=== PATIENT | male | born 1970 | race Caucasian/White ===

== ENCOUNTER 2016-05-16 14:42 | Inpatient (IN) ==
[2016-05-16] MEDS ORDERED: 0.9 % Sodium Chloride 1,000 ML IVC ONE ×2 (17:13→20:04)
[2016-05-16] MEDS ORDERED: *HR* HYDROmorphone (PF) 1 MG/ML SYRINGE IVP ONE (17:14)
[2016-05-16] MEDS ORDERED: Ondansetron 4 MG/2 ML VIAL IVP ONE (17:14)
--- NOTE | 2016-05-16 17:28 | Emergency Department Note ---
Disposition Clinical Impression: Vomiting Qualifiers: Vomiting type: unspecified Vomiting Intractability: non-intractable Nausea presence: unspecified Qualified Code(s): R11.10 - Vomiting, unspecified Abdominal pain Qualifiers: Abdominal location: generalized Qualified Code(s): R10.84 - Generalized abdominal pain Disposition: Still a Patient Condition: Good Referrals: Evgeny Griffith MD [Primary Care Provider] - Forms: ED Satisfaction Letter Time of Disposition: 19:02 General Adult HPI - General Chief complaint: ED Nausea/Vomiting/Diarrhea Stated complaint: vomiting Time Seen by Provider: 05/16/16 16:47 Source: patient, family Limitations: other (prader-willi syndrome) Nursing Notes Reviewed: Yes Vital Signs Reviewed: Yes - History of Present Illness HPI Narrative: Patient is a 46-year-old male who presents to [facility] ED with a chief complaint of abdominal pain, vomiting. Patient has a past medical history significant for Prader-Willi syndrome. His sister is his POA. His sister states that 2 nights ago, she found him with a large bottle of hot sauce mixed in with some water and he had spilled all over the floor as well as on the bed. She is unsure of how much she ingested. Patient then had a few episodes of vomiting yesterday as well as today. He has been complaining of abdominal pain which his sister states he never complains of any pain. He has had prior symptoms that were similar when he had pancreatitis secondary to cholecystitis. His gallbladder was removed at that time. He is not on any specific medications for Prader-Willi syndrome. Denies any history of adrenal insufficiency. They state he has had problems with anemia for which she has required blood transfusions at the cancer center. He also has multiple open sores on his lower extremities from his picking for which he sees wound care. Onset (ago): day(s) Location: abdomen Radiation: non-radiation Pain Severity: moderate Pain Scale: 5 Consistency: constant Improves with: nothing Worsens with: other (palpation) Associated symptoms: Reports: nausea/vomiting. Denies: confusion, fever/chills , shortness of breath Treatments Prior to Arrival: none - Related Data Home Medications Medication Instructions Recorded Confirmed Multivitamin [Multi-Day Vitamins] 1 each PO DAILY 01/07/16 05/09/16 Pentoxifylline [TRENtal] 400 mg PO BID 01/07/16 05/09/16 Furosemide [Lasix] 20 mg PO DAILY 02/02/16 05/09/16 Previous Rx's Medication Instructions Recorded Ascorbic Acid [Vitamin C] 500 mg PO DAILY #30 tablet 01/09/16 Folic Acid 0.4 mg PO DAILY #30 tablet 01/09/16 Ferrous Gluconate 324 mg PO BID #60 tablet 02/15/16 Allergies Allergy/AdvReac Type Severity Reaction Status Date / Time cephalexin [From Keflex] Allergy See Verified 03/14/16 16:16 Comments chlorpromazine Allergy See Verified 03/14/16 16:16 [From Thorazine] Comments All systems ED: reviewed and negative except as stated. Past Medical History - Past Medical History Attestation: Yes The following information was validated with the patient. Source: obtained from family Medical history: Reports: other Surgical history: Reports: cholecystectomy Psychiatric history: Reports: other - Social History Smoking Status: Never smoker Smokeless Tobacco Status: No Alcohol use: Reports: none Drug use: Reports: none Physical Exam - General Limitations: no limitations General appearance: alert, obese - Head Head exam: atraumatic, normocephalic, normal inspection - Eye Eye exam: Present: normal appearance, PERRL, EOMI - ENT ENT exam: normal exam - Neck Neck exam: Present: normal inspection, full ROM, trachea midline - Chest Chest inspection: Present: normal inspection, symmetric chest wall rise - Respiratory Respiratory exam: Present: normal lung sounds bilaterally - Cardiovascular Cardiovascular exam: Present: normal rhythm, tachycardia - Abdominal Exam Abdominal exam: Present: soft, tenderness, diminished bowel sounds. Absent: distention, guarding, rebound, rigidity - Extremities Exam Extremities exam: Present: other (Lower extremity sores bandaged) - Neurological Exam Neurological exam: Present: alert - Psychiatric Psychiatric exam: Present: normal affect, normal mood - Skin Skin exam: Present: warm, dry, intact, normal color Course Course Narrative: Patient seen and examined. Patient has abdominal pain and vomiting. History of anemia. He does appear pale. He is complaining of abdominal pain when I push on his abdomen though it does feel soft and nondistended. Labs, CT scan with IV contrast ordered. He has also somewhat hypotensive with his blood pressure 80s over 60s. 1L IVF ordered. - Reevaluation(s) Reevaluation #1: Lab work shows mild leukocytosis of 14 which is elevated from what it was one week ago at 7. He also has a mild lactic acidosis at 2.5. His blood pressure is improving with some fluids. Pending abdominal CT scan. Suspect patient will likely need admission. Patient has been signed out to night team. Time: 19:01 Vital Signs Temperature 99.1 F 05/16/16 14:58 Pulse Rate 100 05/16/16 14:58 Respiratory Rate 16 05/16/16 14:58 Blood Pressure 84/61 05/16/16 14:58 O2 Sat by Pulse Oximetry 95 05/16/16 14:58 Temperature 99.1 F 05/16/16 14:58 Pulse Rate 97 05/16/16 18:11 Respiratory Rate 16 05/16/16 18:11 Blood Pressure 92/58 05/16/16 18:11 O2 Sat by Pulse Oximetry 87 L 05/16/16 18:11 Oxygen Delivery Oxygen Delivery Room Air Medical Decision Making - Medical Records Medical records reviewed: Yes I reviewed the patient's medical records. - Lab Data Lab results reviewed: Yes I reviewed the patient's lab results. Result diagrams: 05/16/16 17:21 05/16/16 17:21 Lab Results 05/16/16 05/16/16 05/16/16 Range/Units 17:21 17:21 18:01 WBC 14.2 H (4.3-11.1) K/mcL RBC 3.17 L (4.19-5.50) M/mcL Hgb 7.2 L (12.9-16.9) g/dL Hct 25.6 L (37.5-50.1) % MCV 80.8 L (83.0-100.0) fL MCH 22.7 L (28.0-33.3) pg MCHC 28.1 L (31.6-35.5) g/dL RDW 16.4 H (11.5-14.5) % Plt Count 423 H (140-400) K/mcL MPV 10.0 (9.4-12.4) fL Immature Gran % 0.6 (0-4) % Seg Neutrophils % 55.9 % Lymphocytes % 24.4 % Monocytes % 18.0 % Eosinophils % 0.6 % Basophils % 0.5 % Neutrophils # 7.9 (1.6-8.9) K/mcL Lymphocytes # 3.5 (0.6-4.6) K/mcL Monocytes # 2.6 H (0.0-1.3) K/mcL Eosinophils # 0.1 (0.0-0.6) K/mcL Basophils # 0.1 (0.0-0.2) K/mcL Nucleated RBCs/100 WBC 0.4 H (0) /100 WBC Platelet Estimate Slight increase H (Normal) Polychromasia 1+ A (Not Present) Hypochromasia Present A (Not Present) Anisocytosis 1+ A (Not Present) Sodium 138 (136-145) mEq/L Potassium 3.5 (3.5-4.5) mEq/L Chloride 103 (98-109) mEq/L Carbon Dioxide 24 (19-29) mEq/L BUN 13 (8-26) mg/dL Creatinine 0.68 L (0.72-1.25) mg/dL Est GFR ( Amer) > 60 (> 60) Est GFR (Non-Af Amer) > 60 (> 60) BUN/Creatinine Ratio 19 (6-26) Glucose 86 (70-99) mg/dL Calculated Osmolality 285 (280-300) Lactic Acid 2.5 H (0.5-2.2) mmol/L Calcium 7.7 L (8.6-10.8) mg/dL Total Bilirubin 0.4 (0.2-1.2) mg/dL Direct Bilirubin 0.2 (0.0-0.5) mg/dL Indirect Bilirubin 0.2 (0.0-1.2) mg/dL AST 17 (5-34) Units/L ALT 6 (0-55) Units/L Alkaline Phosphatase 82 (38-126) Units/L Serum Total Protein 5.4 L (6.0-8.3) g/dL Albumin 1.8 L (3.5-5.0) g/dL Globulin 3.6 H (2.4-3.5) g/dL Albumin/Globulin Ratio 0.5 L (1.1-2.2) Amylase 26 (25-125) Units/L Lipase 9 (8-78) Units/L - Radiology Data Radiology results reviewed: Yes I reviewed the patient's radiology results.
[2016-05-16 17:32] LABS: Eosinophils % 0.6 %; Lymphocytes % 24.4 %; Nucleated Red Blood Cells 0.4 /100 WBC (0); Red Cell Distribution Width 16.4 % (11.5-14.5)
[2016-05-16 17:33] LABS: Basophils # 0.1 K/mcL (0.0-0.2); Basophils % 0.5 %; Eosinophils # 0.1 K/mcL (0.0-0.6); Hematocrit 25.6 % (37.5-50.1); Hemoglobin 7.2 g/dL (12.9-16.9); Immature Granulocytes % 0.6 % (0-4); Lymphocytes # 3.5 K/mcL (0.6-4.6); Mean Corpuscular HGB Conc 28.1 g/dL (31.6-35.5); Mean Corpuscular Hemoglobin 22.7 pg (28.0-33.3); Mean Corpuscular Volume 80.8 fL (83.0-100.0); Monocytes # 2.6 K/mcL (0.0-1.3); Neutrophils # 7.9 K/mcL (1.6-8.9); Platelet Count 423 K/mcL (140-400); Red Blood Count 3.17 M/mcL (4.19-5.50); Segmented Neutrophils % 55.9 %
[2016-05-16 17:48] LABS: Alanine Aminotransferase 6 Units/L (0-55); Albumin/Globulin Ratio 0.5 (1.1-2.2); Alkaline Phosphatase 82 Units/L (38-126); Amylase 26 Units/L (25-125); Aspartate Amino Transferase 17 Units/L (5-34); BUN/Creatinine Ratio 19 (6-26); Bilirubin,Direct 0.2 mg/dL (0.0-0.5); Bilirubin,Indirect 0.2 mg/dL (0.0-1.2); Bilirubin,Total 0.4 mg/dL (0.2-1.2); Blood Urea Nitrogen 13 mg/dL (8-26); Calcium 7.7 mg/dL (8.6-10.8); Carbon Dioxide 24 mEq/L (19-29); Chloride 103 mEq/L (98-109); Globulin 3.6 g/dL (2.4-3.5); Glucose 86 mg/dL (70-99); Lipase 9 Units/L (8-78); Osmolality,Calculated 285 (280-300); Potassium 3.5 mEq/L (3.5-4.5); Sodium 138 mEq/L (136-145); Total Protein 5.4 g/dL (6.0-8.3); eGFR For African Americans > 60 (> 60); eGFR For Non-African Americans > 60 (> 60)
[2016-05-16 17:49] LABS: Albumin 1.8 g/dL (3.5-5.0)
[2016-05-16 17:56] LABS: Anisocytosis 1+ (Not Present); Hypochromasia Present (Not Present); Polychromasia 1+ (Not Present)
--- NOTE | 2016-05-16 18:18 | Emergency Department Note ---
Disposition Clinical Impression: Vomiting, Abdominal pain, Pneumonia of both lower lobes, Severe sepsis Disposition: Admitted As Inpatient Condition: Fair General Adult HPI - General Chief complaint: ED Nausea/Vomiting/Diarrhea Stated complaint: vomiting Time Seen by Provider: 05/16/16 16:47 Source: patient, family Limitations: no limitations - History of Present Illness Location: abdomen Pain Scale: 5 Improves with: nothing Worsens with: other (palpation) Associated symptoms: Reports: nausea/vomiting. Denies: confusion, fever/chills , shortness of breath Treatments Prior to Arrival: none - Related Data Home Medications Medication Instructions Recorded Confirmed Multivitamin [Multi-Day Vitamins] 1 each PO DAILY 01/07/16 05/16/16 Pentoxifylline [TRENtal] 400 mg PO BID 01/07/16 05/16/16 Furosemide [Lasix] 20 mg PO DAILY 02/02/16 05/16/16 Previous Rx's Medication Instructions Recorded Ascorbic Acid [Vitamin C] 500 mg PO DAILY #30 tablet 01/09/16 Folic Acid 0.4 mg PO DAILY #30 tablet 01/09/16 Ferrous Gluconate 324 mg PO BID #60 tablet 02/15/16 Allergies Allergy/AdvReac Type Severity Reaction Status Date / Time cephalexin [From Keflex] Allergy See Verified 03/14/16 16:16 Comments chlorpromazine Allergy See Verified 03/14/16 16:16 [From Thorazine] Comments Past Medical History - Past Medical History Medical history: Reports: other Surgical history: Reports: cholecystectomy Psychiatric history: Reports: other - Social History Smoking Status: Never smoker Smokeless Tobacco Status: No Alcohol use: Reports: none Drug use: Reports: none Physical Exam - General Limitations: no limitations General appearance: alert, obese Course - Reevaluation(s) Reevaluation #1: I saw the patient with the resident, Dr. Reyna. Patient presents with abdominal pain. Patient vomited yesterday. He has had decreased by mouth intake. On examination he complains of tenderness all over the belly but when I went to see him he had had a big bowel movement and says his discomfort is better since the bowel movement. Labs look okay. He is anemic but he is at baseline. Blood pressure was little bit low so we given him IV fluids. He is going for CT scan of the abdomen. Disposition will be based on diagnostic results and reevaluation. Time: 18:16 Vital Signs Temperature 99.1 F 05/16/16 14:58 Pulse Rate 100 05/16/16 14:58 Respiratory Rate 16 05/16/16 14:58 Blood Pressure 84/61 05/16/16 14:58 O2 Sat by Pulse Oximetry 95 05/16/16 14:58 Temperature 97.5 F L 05/18/16 15:49 Pulse Rate 70 05/18/16 16:00 Respiratory Rate 18 05/18/16 12:50 Blood Pressure 141/67 05/18/16 08:00 O2 Sat by Pulse Oximetry 98 05/18/16 12:50 Oxygen Delivery Oxygen Delivery Room Air Medical Decision Making - Lab Data Result diagrams: 05/18/16 05:10 05/18/16 05:10 Lab Results 05/16/16 05/16/16 05/16/16 Range/Units 17:21 17:21 18:01 WBC 14.2 H (4.3-11.1) K/mcL RBC 3.17 L (4.19-5.50) M/mcL Hgb 7.2 L (12.9-16.9) g/dL Hct 25.6 L (37.5-50.1) % MCV 80.8 L (83.0-100.0) fL MCH 22.7 L (28.0-33.3) pg MCHC 28.1 L (31.6-35.5) g/dL RDW 16.4 H (11.5-14.5) % Plt Count 423 H (140-400) K/mcL MPV 10.0 (9.4-12.4) fL Immature Gran % 0.6 (0-4) % Seg Neutrophils % 55.9 % Lymphocytes % 24.4 % Monocytes % 18.0 % Eosinophils % 0.6 % Basophils % 0.5 % Neutrophils # 7.9 (1.6-8.9) K/mcL Lymphocytes # 3.5 (0.6-4.6) K/mcL Monocytes # 2.6 H (0.0-1.3) K/mcL Eosinophils # 0.1 (0.0-0.6) K/mcL Basophils # 0.1 (0.0-0.2) K/mcL Nucleated RBCs/100 WBC 0.4 H (0) /100 WBC Platelet Estimate Slight increase H (Normal) Polychromasia 1+ A (Not Present) Hypochromasia Present A (Not Present) Anisocytosis 1+ A (Not Present) Sodium 138 (136-145) mEq/L Potassium 3.5 (3.5-4.5) mEq/L Chloride 103 (98-109) mEq/L Carbon Dioxide 24 (19-29) mEq/L BUN 13 (8-26) mg/dL Creatinine 0.68 L (0.72-1.25) mg/dL Est GFR ( Amer) > 60 (> 60) Est GFR (Non-Af Amer) > 60 (> 60) BUN/Creatinine Ratio 19 (6-26) Glucose 86 (70-99) mg/dL Calculated Osmolality 285 (280-300) Lactic Acid 2.5 H (0.5-2.2) mmol/L Calcium 7.7 L (8.6-10.8) mg/dL Total Bilirubin 0.4 (0.2-1.2) mg/dL Direct Bilirubin 0.2 (0.0-0.5) mg/dL Indirect Bilirubin 0.2 (0.0-1.2) mg/dL AST 17 (5-34) Units/L ALT 6 (0-55) Units/L Alkaline Phosphatase 82 (38-126) Units/L Serum Total Protein 5.4 L (6.0-8.3) g/dL Albumin 1.8 L (3.5-5.0) g/dL Globulin 3.6 H (2.4-3.5) g/dL Albumin/Globulin Ratio 0.5 L (1.1-2.2) Amylase 26 (25-125) Units/L Lipase 9 (8-78) Units/L Urine Color (Yellow) Urine Clarity (Clear) Urine pH (5.0-8.0) pH Units Ur Specific [place] (1.010-1.025) Urine Protein (Neg-Trace) mg/dL Urine Glucose (UA) (Normal) mg/dL Urine Ketones (Negative) mg/dL Urine Blood (Negative) Urine Nitrite (Negative) Urine Bilirubin (Negative) Urine Urobilinogen (Normal) mg/dL Ur Leukocyte Esterase (Negative) Urine Microscopic RBC (0-3) per hpf Urine Microscopic WBC (0-3) per hpf Ur Squamous Epith Cells (None-Few) per lpf Urine Bacteria (None-Few) per hpf Hyaline Casts (None-Few) per lpf Ur Culture Indicated? (NO) 05/16/16 05/16/16 Range/Units 20:49 22:04 WBC (4.3-11.1) K/mcL RBC (4.19-5.50) M/mcL Hgb (12.9-16.9) g/dL Hct (37.5-50.1) % MCV (83.0-100.0) fL MCH (28.0-33.3) pg MCHC (31.6-35.5) g/dL RDW (11.5-14.5) % Plt Count (140-400) K/mcL MPV (9.4-12.4) fL Immature Gran % (0-4) % Seg Neutrophils % % Lymphocytes % % Monocytes % % Eosinophils % % Basophils % % Neutrophils # (1.6-8.9) K/mcL Lymphocytes # (0.6-4.6) K/mcL Monocytes # (0.0-1.3) K/mcL Eosinophils # (0.0-0.6) K/mcL Basophils # (0.0-0.2) K/mcL Nucleated RBCs/100 WBC (0) /100 WBC Platelet Estimate (Normal) Polychromasia (Not Present) Hypochromasia (Not Present) Anisocytosis (Not Present) Sodium (136-145) mEq/L Potassium (3.5-4.5) mEq/L Chloride (98-109) mEq/L Carbon Dioxide (19-29) mEq/L BUN (8-26) mg/dL Creatinine (0.72-1.25) mg/dL Est GFR ( Amer) (> 60) Est GFR (Non-Af Amer) (> 60) BUN/Creatinine Ratio (6-26) Glucose (70-99) mg/dL Calculated Osmolality (280-300) Lactic Acid 3.4 H (0.5-2.2) mmol/L Calcium (8.6-10.8) mg/dL Total Bilirubin (0.2-1.2) mg/dL Direct Bilirubin (0.0-0.5) mg/dL Indirect Bilirubin (0.0-1.2) mg/dL AST (5-34) Units/L ALT (0-55) Units/L Alkaline Phosphatase (38-126) Units/L Serum Total Protein (6.0-8.3) g/dL Albumin (3.5-5.0) g/dL Globulin (2.4-3.5) g/dL Albumin/Globulin Ratio (1.1-2.2) Amylase (25-125) Units/L Lipase (8-78) Units/L Urine Color Yellow (Yellow) Urine Clarity Clear (Clear) Urine pH 6.0 (5.0-8.0) pH Units Ur Specific [place] > 1.030 H (1.010-1.025) Urine Protein 30 H (Neg-Trace) mg/dL Urine Glucose (UA) Normal (Normal) mg/dL Urine Ketones Negative (Negative) mg/dL Urine Blood Small H (Negative) Urine Nitrite Negative (Negative) Urine Bilirubin Negative (Negative) Urine Urobilinogen Normal (Normal) mg/dL Ur Leukocyte Esterase Negative (Negative) Urine Microscopic RBC 3-5 H (0-3) per hpf Urine Microscopic WBC 0-3 (0-3) per hpf Ur Squamous Epith Cells Many H (None-Few) per lpf Urine Bacteria None Seen (None-Few) per hpf Hyaline Casts Few (None-Few) per lpf Ur Culture Indicated? NO (NO) Attestation Statement - Attestation Attestation: I, Dr. Waite, examined this patient [id number] and my medical decision- making was reviewed with Dr. Reyna, Resident Physician. I agree with the documented findings, disposition and treatment plan as described except to the extent set forth below. Please see my progress notes for details.
[2016-05-16] MEDS ORDERED: 0.9 % Sodium Chloride 1,000 ML ONE (20:04)
[2016-05-16] MEDS ORDERED: 0.9 % Sodium Chloride 500 ML IVC ONE (20:43)
[2016-05-16] MEDS ORDERED: Levofloxacin 750 MG/150 ML 750 MG/150 ML BAG IVPB ONE (20:45)
[2016-05-16] MEDS ORDERED: 0.9 % Sodium Chloride 1,000 ML IVC SCH ×2 (20:45→23:56)
--- NOTE | 2016-05-16 20:49 | Emergency Department Note ---
Disposition Clinical Impression: Severe sepsis Vomiting Qualifiers: Vomiting type: unspecified Vomiting Intractability: non-intractable Nausea presence: unspecified Qualified Code(s): R11.10 - Vomiting, unspecified Abdominal pain Qualifiers: Abdominal location: generalized Qualified Code(s): R10.84 - Generalized abdominal pain Pneumonia of both lower lobes Qualifiers: Pneumonia type: due to unspecified organism Qualified Code(s): J18.9 - Pneumonia, unspecified organism Disposition: Admitted As Inpatient Condition: Fair General Adult HPI - General Chief complaint: ED Nausea/Vomiting/Diarrhea Stated complaint: vomiting Time Seen by Provider: 05/16/16 16:47 Source: patient, family Limitations: no limitations Nursing Notes Reviewed: Yes Vital Signs Reviewed: Yes - History of Present Illness Location: abdomen Pain Scale: 5 Improves with: nothing Worsens with: other (palpation) Associated symptoms: Reports: nausea/vomiting. Denies: confusion, fever/chills , shortness of breath Treatments Prior to Arrival: none - Related Data Home Medications Medication Instructions Recorded Confirmed Multivitamin [Multi-Day Vitamins] 1 each PO DAILY 01/07/16 05/16/16 Pentoxifylline [TRENtal] 400 mg PO BID 01/07/16 05/16/16 Furosemide [Lasix] 20 mg PO DAILY 02/02/16 05/16/16 Previous Rx's Medication Instructions Recorded Ascorbic Acid [Vitamin C] 500 mg PO DAILY #30 tablet 01/09/16 Folic Acid 0.4 mg PO DAILY #30 tablet 01/09/16 Ferrous Gluconate 324 mg PO BID #60 tablet 02/15/16 Allergies Allergy/AdvReac Type Severity Reaction Status Date / Time cephalexin [From Keflex] Allergy See Verified 03/14/16 16:16 Comments chlorpromazine Allergy See Verified 03/14/16 16:16 [From Thorazine] Comments Past Medical History - Past Medical History Medical history: Reports: other Surgical history: Reports: cholecystectomy Psychiatric history: Reports: other - Social History Smoking Status: Never smoker Smokeless Tobacco Status: No Alcohol use: Reports: none Drug use: Reports: none Physical Exam - General Limitations: no limitations General appearance: alert, obese Course Course Narrative: This patient was signed out to me at shift change from Dr. Reyna and Dr. Waite. Please refer to their notes for complete details of history and physical examination. At shift change patient was awaiting results of a CT scan of the abdomen and pelvis. CT showed some diffuse abdominal lymphadenopathy concerning for neoplasm but otherwise no acute intra-abdominal abnormality. It also showed right basilar opacities concerning for pneumonia. Results discussed with patient and family. Blood cultures obtained and antibiotics ordered. We will admit the patient for pneumonia. - Consultations Consultation #1: 21:00 discussed with the hospitalist, Dr. Angeles, and he accepted admission of the patient. Time: 20:48 Vital Signs Temperature 99.1 F 05/16/16 14:58 Pulse Rate 100 05/16/16 14:58 Respiratory Rate 16 05/16/16 14:58 Blood Pressure 84/61 05/16/16 14:58 O2 Sat by Pulse Oximetry 95 05/16/16 14:58 Temperature 99.1 F 05/16/16 14:58 Pulse Rate 102 05/16/16 21:03 Respiratory Rate 18 05/16/16 21:03 Blood Pressure 88/61 05/16/16 21:03 O2 Sat by Pulse Oximetry 94 L 05/16/16 21:03 Oxygen Delivery Oxygen Delivery Room Air Medical Decision Making - Medical Records Medical records reviewed: Yes I reviewed the patient's medical records. - Lab Data Lab results reviewed: Yes I reviewed the patient's lab results. Result diagrams: 05/16/16 17:21 05/16/16 17:21 Lab Results 05/16/16 05/16/16 05/16/16 Range/Units 17:21 17:21 18:01 WBC 14.2 H (4.3-11.1) K/mcL RBC 3.17 L (4.19-5.50) M/mcL Hgb 7.2 L (12.9-16.9) g/dL Hct 25.6 L (37.5-50.1) % MCV 80.8 L (83.0-100.0) fL MCH 22.7 L (28.0-33.3) pg MCHC 28.1 L (31.6-35.5) g/dL RDW 16.4 H (11.5-14.5) % Plt Count 423 H (140-400) K/mcL MPV 10.0 (9.4-12.4) fL Immature Gran % 0.6 (0-4) % Seg Neutrophils % 55.9 % Lymphocytes % 24.4 % Monocytes % 18.0 % Eosinophils % 0.6 % Basophils % 0.5 % Neutrophils # 7.9 (1.6-8.9) K/mcL Lymphocytes # 3.5 (0.6-4.6) K/mcL Monocytes # 2.6 H (0.0-1.3) K/mcL Eosinophils # 0.1 (0.0-0.6) K/mcL Basophils # 0.1 (0.0-0.2) K/mcL Nucleated RBCs/100 WBC 0.4 H (0) /100 WBC Platelet Estimate Slight increase H (Normal) Polychromasia 1+ A (Not Present) Hypochromasia Present A (Not Present) Anisocytosis 1+ A (Not Present) Sodium 138 (136-145) mEq/L Potassium 3.5 (3.5-4.5) mEq/L Chloride 103 (98-109) mEq/L Carbon Dioxide 24 (19-29) mEq/L BUN 13 (8-26) mg/dL Creatinine 0.68 L (0.72-1.25) mg/dL Est GFR ( Amer) > 60 (> 60) Est GFR (Non-Af Amer) > 60 (> 60) BUN/Creatinine Ratio 19 (6-26) Glucose 86 (70-99) mg/dL Calculated Osmolality 285 (280-300) Lactic Acid 2.5 H (0.5-2.2) mmol/L Calcium 7.7 L (8.6-10.8) mg/dL Total Bilirubin 0.4 (0.2-1.2) mg/dL Direct Bilirubin 0.2 (0.0-0.5) mg/dL Indirect Bilirubin 0.2 (0.0-1.2) mg/dL AST 17 (5-34) Units/L ALT 6 (0-55) Units/L Alkaline Phosphatase 82 (38-126) Units/L Serum Total Protein 5.4 L (6.0-8.3) g/dL Albumin 1.8 L (3.5-5.0) g/dL Globulin 3.6 H (2.4-3.5) g/dL Albumin/Globulin Ratio 0.5 L (1.1-2.2) Amylase 26 (25-125) Units/L Lipase 9 (8-78) Units/L 02/14/17 Range/Units 20:49 WBC (4.3-11.1) K/mcL RBC (4.19-5.50) M/mcL Hgb (12.9-16.9) g/dL Hct (37.5-50.1) % MCV (83.0-100.0) fL MCH (28.0-33.3) pg MCHC (31.6-35.5) g/dL RDW (11.5-14.5) % Plt Count (140-400) K/mcL MPV (9.4-12.4) fL Immature Gran % (0-4) % Seg Neutrophils % % Lymphocytes % % Monocytes % % Eosinophils % % Basophils % % Neutrophils # (1.6-8.9) K/mcL Lymphocytes # (0.6-4.6) K/mcL Monocytes # (0.0-1.3) K/mcL Eosinophils # (0.0-0.6) K/mcL Basophils # (0.0-0.2) K/mcL Nucleated RBCs/100 WBC (0) /100 WBC Platelet Estimate (Normal) Polychromasia (Not Present) Hypochromasia (Not Present) Anisocytosis (Not Present) Sodium (136-145) mEq/L Potassium (3.5-4.5) mEq/L Chloride (98-109) mEq/L Carbon Dioxide (19-29) mEq/L BUN (8-26) mg/dL Creatinine (0.72-1.25) mg/dL Est GFR ( Amer) (> 60) Est GFR (Non-Af Amer) (> 60) BUN/Creatinine Ratio (6-26) Glucose (70-99) mg/dL Calculated Osmolality (280-300) Lactic Acid 3.4 H (0.5-2.2) mmol/L Calcium (8.6-10.8) mg/dL Total Bilirubin (0.2-1.2) mg/dL Direct Bilirubin (0.0-0.5) mg/dL Indirect Bilirubin (0.0-1.2) mg/dL AST (5-34) Units/L ALT (0-55) Units/L Alkaline Phosphatase (38-126) Units/L Serum Total Protein (6.0-8.3) g/dL Albumin (3.5-5.0) g/dL Globulin (2.4-3.5) g/dL Albumin/Globulin Ratio (1.1-2.2) Amylase (25-125) Units/L Lipase (8-78) Units/L - Radiology Data Radiology results reviewed: Yes I reviewed the patient's radiology results. Abdomen/Pelvis CT 05/16/16 17:13 IMPRESSION: 1. Patchy opacities in both lower lobes are suspicious for pneumonia. 2. Enlarged lymph nodes in the abdomen and pelvis as above, which appear increased in size since the comparison study. Underlying neoplastic process such as lymphoma is not excluded. D/ / 05/16/2016 18:59:29 Nam De Jesus MD / [facility]old Interpreting Provider: Nam De Jesus MD Critical Care Time Critical Care Time: Yes Total Critical Care Time: 45 Attestation: Critical care performed: Time is exclusive of separately billable procedures. Time includes: direct patient care, patient reassessment, coordination of patient care, interpretation of data (laboratory data, radiology data, and respiratory data), review of patient's medical records, medical consultation and documentation of patient care. Procedures included in critical care time: Procedures excluded from critical care time:
[2016-05-16 22:15] LABS: Bilirubin,Urine Negative (Negative); Blood,Urine Small (Negative); Clarity,Urine Clear (Clear); Color,Urine Yellow (Yellow); Glucose,Urine (UA) Normal (Normal); Ketones,Urine Negative (Negative); Leukocyte Esterase,Urine Negative (Negative); Nitrite,Urine Negative (Negative); Protein,Urine 30 mg/dL (Neg-Trace); Specific Gravity,Urine > 1.030 (1.010-1.025); Urobilinogen,Urine Normal (Normal)
[2016-05-16 22:17] LABS: Bacteria,Urine None Seen per hpf (None-Few); Hyaline Casts,Urine Few per lpf (None-Few); Squamous Epithelial Cell,Urine Many per lpf (None-Few); WBC,Urine 0-3 per hpf (0-3)
--- NOTE | 2016-05-16 23:15 | Internal Med History&Physical ---
<Roland Rubalcava - Last Filed: 05/17/16 00:25> Date of Encounter: 05/17/16 Time of Encounter: 23:11 Assessment and Plan (1) Severe sepsis Current visit: Yes Status: Acute Patient did have several liters of fluid while in the ED and blood pressure minimally responded Continue with fluids with 125 ml/hr and give 2 units of pRBC and possibly albumin afterwards if he his blood pressure continues to be low Will start empiric coverage for community acquired pneumonia with Levaquin and Zosyn to cover for possible aspiration Pulmonary is most likely source of infection at this point, but also has chronic lower extremity wounds Blood cultures collected, awaiting sensitivities (2) Community acquired pneumonia Current visit: Yes Status: Acute Patient possibly may have aspirated during the episode when he ingested the sauce, will start empiric antibiotics with anaerobic coverage with Levaquin and Zosyn Blood cultures collected, await sensitivities prior to de-escalation Will continue supportive treatments with supplemental oxygen and breathing treatments (3) Acute hypoxemic respiratory failure Current visit: Yes Status: Acute Likely secondary to pneumonia/sepsis, but cannot rule out PE at this point Once he is adequately hydrated and blood pressure are more stable, may consider CTA to rule out PE Will obtain VBG and place patient on duonebs and supplemental oxygen (4) Abdominal pain Current visit: Yes Status: Acute Possibly due to enlarged lymph nodes and undiagnosed lymphoma within abdomen Will consult hem/onc for further workup, appreciate recommendations Support with analgesics and anti-emetics Qualifiers: Abdominal location: generalized Qualified Code(s): R10.84 - Generalized abdominal pain (5) Bilateral lower leg cellulitis Current visit: No Status: Chronic Patient has chronic lowre extremity wounds which she seems wound care for Will consult wound care for management Sister states the appearance of his wounds currently are no worse than his baseline (6) Chronic anemia Current visit: No Status: Chronic Patient has had several episodes of acute on chronic anemia requiring transfusions He has been seen by Hem/Onc and is currently being worked up as an outpatient Will consult hem/onc while she is inpatient, she may benefit from IV iron as it this has helped her in the past Transfuse 2 units for now and recheck Hb in AM (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 Junior is a 46 year old male with history of Prader-Willi syndrome who presents to the ER with lower quadrant abdominal pain, nausea, vomiting. She is accompanied with his sister who is also her caregiver and power of regulatory attorney who is able to assist in history. She states that Sunday night patient adjusted an unknown amount of taco sauce and she found some vomit that was similar to that color, pinkish brown. She states that on Sunday patient had decrease oral intake which was unusual for him due to his Prader- Willi syndrome. The sister said that she then sat him some Sprite and soup and patient did not have any additional episodes of vomiting, although he still had decreased oral intake. Abdominal CT performed in the ED demonstrated lower lobe infiltrates along with increasing size of lymph nodes in his abdomen. He has been seeing hematology due to his history of chronic anemia, but he will has never been worked up for cancer. The sister states that he has not had a colonoscopy or endoscopy in the past several years although this was considered when he had acute anemia this past December. The patient currently denies any fever, chest pain, shortness of breath, diarrhea, or blood in the stool. Past Med Surg Social Fam HX - Past Medical History Medical history: other Psychiatric history: other - Past Surgical History Surgical History: cholecystectomy - Social History Smoking Status: Never smoker Smokeless Tobacco Status: No Alcohol use: none Drug use: none - Family History Mother Living Status: Hx Family Cardiac Disorders: Yes Internal Medicine - H&P: Meds Multivitamin [Multi-Day Vitamins] 1 each PO DAILY 01/07/16 [History] Pentoxifylline [TRENtal] 400 mg PO BID 01/07/16 [History] Ascorbic Acid [Vitamin C] 500 mg PO DAILY #30 tablet 01/09/16 [Rx] Folic Acid 0.4 mg PO DAILY #30 tablet 01/09/16 [Rx] Furosemide [Lasix] 20 mg PO DAILY 02/02/16 [History] Ferrous Gluconate 324 mg PO BID #60 tablet 02/15/16 [Rx] Allergies cephalexin [From Keflex] Allergy (Verified 03/14/16 16:16) See Comments Pt unsure of reaction. chlorpromazine [From Thorazine] Allergy (Verified 03/14/16 16:16) See Comments ROS unobtainable: due to mental status All Systems PM: A 10-system review of systems was performed and is negative for pertinent findings except as documented above in the HPI. - Constitutional Vitals: Temp Pulse Resp BP Pulse Ox 99.1 F 102 0 0/0 94 L 05/16/16 14:58 05/16/16 21:03 05/16/16 22:26 05/16/16 22:26 05/16/16 21:03 General appearance: Present: cooperative, pleasant, no acute distress, answers questions appropriately - Head Head exam: Present: atraumatic, normocephalic - Eye Eye exam: Present: PERRL, conjuntiva pink, sclera anicteric - Neck Neck exam general surgery: Present: supple, trachea midline. Absent: lymphadenopathy - Respiratory Respiratory exam: Present: CTAB. Absent: accessory muscle use, rales, rhonchi, wheezes - Cardiovascular Cardiovascular exam: Present: +S1, +S2, tachycardia. Absent: diastolic murmur, gallop, rubs, systolic murmur - GI/Abdominal GI/Abdominal exam: Present: normal bowel sounds, soft, tenderness (worse in LLQ) , no peritoneal signs. Absent: distended, firm, guarding, rebound, rigid - Extremities Exam Extremities exam: Present: tenderness (from chronic lower extremity wounds, currently wrapped), warm, radial pulses palpable and symetrical. Absent: calf tenderness, cyanotic, pedal edema - Neurological Exam Neurological exam: Present: alert, no focal deficits. Absent: facial droop, speech deficit - Skin Skin exam: Present: dry, intact Internal Med - H&P Results - Labs CBC & Chem 7: 05/16/16 17:21 05/16/16 17:21 Labs: Urine 05/16/16 Range/Units 22:04 Urine Color Yellow (Yellow) Urine Clarity Clear (Clear) Urine pH 6.0 (5.0-8.0) pH Units Ur Specific Jerome > 1.030 H (1.010-1.025) Urine Protein 30 H (Neg-Trace) mg/dL Urine Glucose (UA) Normal (Normal) mg/dL <Julian Angeles - Last Filed: 05/17/16 06:44> Date of Encounter: 05/16/16 Internal Medicine - H&P: HPI History of present illness: Mr. Junior is a 46 year old male admitted to [facility] via the emergency department with chief complaint of acute abdominal pain associated with intractable nausea and vomiting. Patient was visited and interviewed and examined. I examined this patient and my medical decision-making was reviewed with the Resident Physician For this encounter, I have reviewed the documentation, treatment plan, and medical decision making. Relative laboratory and radiographic data base was reviewed and considered and discussed. I agree with the documented findings, disposition and treatment plan as described except to the extent set forth below. The patient's presenting concerns, past medical history, clinical findings and symptoms, he is admitted at this time to undergo further evaluation and disposition. Orders were written as per the computerized physician food order expediter system............... All Systems PM: A 10-system review of systems was performed and is negative for pertinent findings except as documented above in the HPI. - Constitutional Vitals: Temp Pulse Resp BP Pulse Ox 98.0 F 105 95 130/79 93 L 05/17/16 04:00 05/17/16 04:00 05/17/16 04:00 05/17/16 04:00 05/16/16 22:44 Internal Med - H&P Results - Labs CBC & Chem 7: 05/17/16 01:30 05/17/16 01:30 Labs: Short CBC 05/17/16 Range/Units 01:30 WBC 10.3 (4.3-11.1) K/mcL Hgb 6.3 L (12.9-16.9) g/dL Hct 23.6 L (37.5-50.1) % Plt Count 371 (140-400) K/mcL Neutrophils # 6.3 (1.6-8.9) K/mcL BMP 05/17/16 01:30 Sodium 136 Potassium 4.0 Chloride 104 Carbon Dioxide 21 BUN 14 Creatinine 0.71 L Glucose 132 H Calcium 7.0 L Cardiac Enzymes 05/17/16 Range/Units 04:51 Troponin I 0.25 H* (0-0.03) ng/mL - ABG Interpretation ABG results: 05/17/16 01:30 VBG pH 7.34 VBG pCO2 47 VBG pO2 40 VBG HCO3 25.4 - Impressions Vital Signs Temp Pulse Resp BP Pulse Ox 05/17/16 04:00 98.0 F 105 95 130/79 05/16/16 22:44 97.8 F 102 28 91/55 93 L 05/16/16 22:26 0 0/0 05/16/16 21:03 102 18 88/61 94 L 05/16/16 20:30 102 16 82/45 92 L 05/16/16 18:11 97 16 92/58 87 L 05/16/16 14:58 99.1 F 100 16 84/61 95 Intake and Output 05/16/16 05/16/16 05/17/16 15:59 23:59 07:59 Intake Total 1999 200 / 200 Balance 1999 200 / 200 Intake: IV Fluids 1999 200 / 200 0.9 % Sodium Chloride , 1999 000 ML @ 3750 mls/hr IVC .Q16M ONE Rx#:[id number] Flexbumin 25 gm In 100 ml 100 / 100 @ 60 mls/hr IVC .Q1H40M [facility] Rx#:[id number] Zosyn 3.375 GM In 100 / 100 Dextrose 5% (Minibag+) 100 ML 100 ML @ 25 mls/hr IVPB Q8HR [facility] Rx#: [id number] Other: Weight 83.915 kg 80.8 kg Short CBC 05/17/16 05/16/16 Range/Units 01:30 17:21 WBC 10.3 14.2 H (4.3-11.1) K/mcL Hgb 6.3 L 7.2 L (12.9-16.9) g/dL Hct 23.6 L 25.6 L (37.5-50.1) % Plt Count 371 423 H (140-400) K/mcL Neutrophils # 6.3 7.9 (1.6-8.9) K/mcL BMP 05/17/16 05/16/16 Range/Units 01:30 17:21 Sodium 136 138 (136-145) mEq/L Potassium 4.0 3.5 (3.5-4.5) mEq/L Chloride 104 103 (98-109) mEq/L Carbon Dioxide 21 24 (19-29) mEq/L BUN 14 13 (8-26) mg/dL Creatinine 0.71 L 0.68 L (0.72-1.25) mg/dL Glucose 132 H 86 (70-99) mg/dL Calcium 7.0 L 7.7 L (8.6-10.8) mg/dL Cardiac Enzymes 05/17/16 Range/Units 04:51 Troponin I 0.25 H* (0-0.03) ng/mL Liver Function 05/16/16 Range/Units 17:21 Total Bilirubin 0.4 (0.2-1.2) mg/dL Direct Bilirubin 0.2 (0.0-0.5) mg/dL AST 17 (5-34) Units/L ALT 6 (0-55) Units/L Alkaline Phosphatase 82 (38-126) Units/L Albumin 1.8 L (3.5-5.0) g/dL Urine 05/16/16 Range/Units 22:04 Urine Color Yellow (Yellow) Urine Clarity Clear (Clear) Urine pH 6.0 (5.0-8.0) pH Units Ur Specific Jerome > 1.030 H (1.010-1.025) Urine Protein 30 H (Neg-Trace) mg/dL Urine Glucose (UA) Normal (Normal) mg/dL 05/17/16 01:30 VBG pH 7.34 VBG pCO2 47 VBG pO2 40 VBG HCO3 25.4 Abnormal lab results RBC 2.89 M/mcL (4.19-5.50) L 05/17/16 01:30 Hgb 6.3 g/dL (12.9-16.9) L 05/17/16 01:30 Hct 23.6 % (37.5-50.1) L 05/17/16 01:30 MCV 81.7 fL (83.0-100.0) L 05/17/16 01:30 MCH 21.8 pg (28.0-33.3) L 05/17/16 01:30 MCHC 26.7 g/dL (31.6-35.5) L 05/17/16 01:30 RDW 16.3 % (11.5-14.5) H 05/17/16 01:30 Monocytes # 1.6 K/mcL (0.0-1.3) H 05/17/16 01:30 Nucleated RBCs/100 WBC 0.4 /100 WBC (0) H 05/17/16 01:30 Polychromasia 1+ (Not Present) A 05/16/16 17:21 Hypochromasia Present (Not Present) A 05/17/16 01:30 Anisocytosis 1+ (Not Present) A 05/17/16 01:30 Microcytosis Present (Not Present) A 05/17/16 01:30 Creatinine 0.71 mg/dL (0.72-1.25) L 05/17/16 01:30 Glucose 132 mg/dL (70-99) H 05/17/16 01:30 Lactic Acid 3.9 mmol/L (0.5-2.2) H 05/17/16 01:30 Calcium 7.0 mg/dL (8.6-10.8) L 05/17/16 01:30 Ionized Calcium 0.98 mmol/L (1.15-1.35) L 05/17/16 01:30 Magnesium 1.5 mg/dL (1.6-2.6) L 05/17/16 01:30 Troponin I 0.25 ng/mL (0-0.03) H* 05/17/16 04:51 Serum Total Protein 5.4 g/dL (6.0-8.3) L 05/16/16 17:21 Albumin 1.8 g/dL (3.5-5.0) L 05/16/16 17:21 Globulin 3.6 g/dL (2.4-3.5) H 05/16/16 17:21 Albumin/Globulin Ratio 0.5 (1.1-2.2) L 05/16/16 17:21 Prealbumin 5.0 mg/dL (18.0-45.0) L 05/17/16 01:30 TSH 7.790 mcIU/mL (0.350-4.840) H 05/17/16 01:30 Free T3 1.38 pg/mL (1.71-3.71) L 05/17/16 01:30 Ur Specific Jerome > 1.030 (1.010-1.025) H 05/16/16 22:04 Urine Protein 30 mg/dL (Neg-Trace) H 05/16/16 22:04 Urine Blood Small (Negative) H 05/16/16 22:04 Urine Microscopic RBC 3-5 per hpf (0-3) H 05/16/16 22:04 Ur Squamous Epith Cells Many per lpf (None-Few) H 05/16/16 22:04 Allergies Allergy/AdvReac Type Severity Reaction Status Date / Time cephalexin [From Keflex] Allergy See Verified 03/14/16 16:16 Comments chlorpromazine Allergy See Verified 03/14/16 16:16 [From Thorazine] Comments Laboratory Results WBC 10.3 K/mcL (4.3-11.1) 05/17/16 01:30 RBC 2.89 M/mcL (4.19-5.50) L 05/17/16 01:30 Hgb 6.3 g/dL (12.9-16.9) L 05/17/16 01:30 Hct 23.6 % (37.5-50.1) L 05/17/16 01:30 MCV 81.7 fL (83.0-100.0) L 05/17/16 01:30 MCH 21.8 pg (28.0-33.3) L 05/17/16 01:30 MCHC 26.7 g/dL (31.6-35.5) L 05/17/16 01:30 RDW 16.3 % (11.5-14.5) H 05/17/16 01:30 Plt Count 371 K/mcL (140-400) 05/17/16 01:30 MPV 9.4 fL (9.4-12.4) 05/17/16 01:30 Immature Gran % 1.2 % (0-4) 05/17/16 01:30 Seg Neutrophils % 61.4 % 05/17/16 01:30 Lymphocytes % 20.8 % 05/17/16 01:30 Monocytes % 15.5 % 05/17/16 01:30 Eosinophils % 0.7 % 05/17/16 01:30 Basophils % 0.4 % 05/17/16 01:30 Neutrophils # 6.3 K/mcL (1.6-8.9) 05/17/16 01:30 Lymphocytes # 2.1 K/mcL (0.6-4.6) 05/17/16 01:30 Monocytes # 1.6 K/mcL (0.0-1.3) H 05/17/16 01:30 Eosinophils # 0.1 K/mcL (0.0-0.6) 05/17/16 01:30 Basophils # 0.0 K/mcL (0.0-0.2) 05/17/16 01:30 Nucleated RBCs/100 WBC 0.4 /100 WBC (0) H 05/17/16 01:30 Platelet Estimate Normal (Normal) 05/17/16 01:30 Polychromasia 1+ (Not Present) A 05/16/16 17:21 Hypochromasia Present (Not Present) A 05/17/16 01:30 Anisocytosis 1+ (Not Present) A 05/17/16 01:30 Microcytosis Present (Not Present) A 05/17/16 01:30 VBG pH 7.34 pH Units (7.32-7.42) 05/17/16 01:30 VBG pCO2 47 mmHg (41-51) 05/17/16 01:30 VBG pO2 40 mmHg (25-40) 05/17/16 01:30 VBG HCO3 25.4 mEq/L (21-27) 05/17/16 01:30 Sodium 136 mEq/L (136-145) 05/17/16 01:30 Potassium 4.0 mEq/L (3.5-4.5) 05/17/16 01:30 Chloride 104 mEq/L (98-109) 05/17/16 01:30 Carbon Dioxide 21 mEq/L (19-29) 05/17/16 01:30 BUN 14 mg/dL (8-26) 05/17/16 01:30 Creatinine 0.71 mg/dL (0.72-1.25) L 05/17/16 01:30 Est GFR ( Amer) > 60 (> 60) 05/17/16 01:30 Est GFR (Non-Af Amer) > 60 (> 60) 05/17/16 01:30 BUN/Creatinine Ratio 20 (6-26) 05/17/16 01:30 Glucose 132 mg/dL (70-99) H 05/17/16 01:30 Calculated Osmolality 284 (280-300) 05/17/16 01:30 Lactic Acid 3.9 mmol/L (0.5-2.2) H 05/17/16 01:30 Calcium 7.0 mg/dL (8.6-10.8) L 05/17/16 01:30 Ionized Calcium 0.98 mmol/L (1.15-1.35) L 05/17/16 01:30 Phosphorus 3.5 mg/dL (2.3-4.7) 05/17/16 01:30 Magnesium 1.5 mg/dL (1.6-2.6) L 05/17/16 01:30 Total Bilirubin 0.4 mg/dL (0.2-1.2) 05/16/16 17:21 Direct Bilirubin 0.2 mg/dL (0.0-0.5) 05/16/16 17:21 Indirect Bilirubin 0.2 mg/dL (0.0-1.2) 05/16/16 17:21 AST 17 Units/L (5-34) 05/16/16 17:21 ALT 6 Units/L (0-55) 05/16/16 17:21 Alkaline Phosphatase 82 Units/L (38-126) 05/16/16 17:21 Troponin I 0.25 ng/mL (0-0.03) H* 05/17/16 04:51 Serum Total Protein 5.4 g/dL (6.0-8.3) L 05/16/16 17:21 Albumin 1.8 g/dL (3.5-5.0) L 05/16/16 17:21 Globulin 3.6 g/dL (2.4-3.5) H 05/16/16 17:21 Albumin/Globulin Ratio 0.5 (1.1-2.2) L 05/16/16 17:21 Prealbumin 5.0 mg/dL (18.0-45.0) L 05/17/16 01:30 Amylase 26 Units/L (25-125) 05/16/16 17:21 Lipase 9 Units/L (8-78) 05/16/16 17:21 TSH 7.790 mcIU/mL (0.350-4.840) H 05/17/16 01:30 Free T4 0.94 ng/dl (0.70-1.48) 05/17/16 01:30 Free T3 1.38 pg/mL (1.71-3.71) L 05/17/16 01:30 Random Cortisol 15.2 mcg/dl 05/17/16 01:30 Urine Color Yellow (Yellow) 05/16/16 22:04 Urine Clarity Clear (Clear) 05/16/16 22:04 Urine pH 6.0 pH Units (5.0-8.0) 05/16/16 22:04 Ur Specific Jerome > 1.030 (1.010-1.025) H 05/16/16 22:04 Urine Protein 30 mg/dL (Neg-Trace) H 05/16/16 22:04 Urine Glucose (UA) Normal mg/dL (Normal) 05/16/16 22:04 Urine Ketones Negative mg/dL (Negative) 05/16/16 22:04 Urine Blood Small (Negative) H 05/16/16 22:04 Urine Nitrite Negative (Negative) 05/16/16 22:04 Urine Bilirubin Negative (Negative) 05/16/16 22:04 Urine Urobilinogen Normal mg/dL (Normal) 05/16/16 22:04 Ur Leukocyte Esterase Negative (Negative) 05/16/16 22:04 Urine Microscopic RBC 3-5 per hpf (0-3) H 05/16/16 22:04 Urine Microscopic WBC 0-3 per hpf (0-3) 05/16/16 22:04 Ur Squamous Epith Cells Many per lpf (None-Few) H 05/16/16 22:04 Urine Bacteria None Seen per hpf (None-Few) 05/16/16 22:04 Hyaline Casts Few per lpf (None-Few) 05/16/16 22:04 Ur Culture Indicated? NO (NO) 05/16/16 22:04 Blood Type A POSITIVE 05/17/16 04:51 Antibody Screen NEGATIVE 05/17/16 04:51 Crossmatch See Detail 05/17/16 04:51 Impressions Abdomen/Pelvis CT 05/16/16 17:13 IMPRESSION: 1. Patchy opacities in both lower lobes are suspicious for pneumonia. 2. Enlarged lymph nodes in the abdomen and pelvis as above, which appear increased in size since the comparison study. Underlying neoplastic process such as lymphoma is not excluded. D/ / 05/16/2016 18:59:29 Nam De Jesus MD / earnold Interpreting Provider: Nam De Jesus MD - Attending Attestation My signature below is to certify that this patient is under my care and that I, or the Resident Physician working with me, has had a [id number] encounter with this patient. Plan of care has been reviewed and discussed in detail with the patient and family. Questions addressed. Advance care directive discussion briefly addressed. Patient does not declare any healthcare restrictions at this time. Outpatient medications schedules will be reviewed, confirmed and facilitated as appropriate. Reconciliation of home treatments including adjustments, substitutions and reintroduction to the treatment regimen will address this as a maintenance therapies for chronic pre-existing medical conditions. Smoking cessation counseling briefly her breasts. The patient is a nonsmoker. Hospital course will be dependent on clinical findings, treatment response and potential consultative interventions. Patient is at risk for acute clinical decline and morbidity given his presenting chief complaint, frailty and associated comorbidities. Condition is serious. Prognosis is cautiously optimistic. CODE STATUS is full.
[2016-05-16] MEDS ORDERED: Naloxone 0.4 MG/ML INJ IVP PRN (23:42)
[2016-05-16] MEDS ORDERED: Ondansetron 4 MG/2 ML VIAL IVP PRN (23:42)
[2016-05-16] MEDS ORDERED: Acetaminophen 325 MG TABLET PO PRN (23:42)
[2016-05-17] MEDS ORDERED: Albuterol 2.5 MG/3 ML NEBULIZER IH PRN (01:02)
[2016-05-17] MEDS: Piperacillin/Tazobactam 3.375 GM in D5% in Water (Mini-Bag+) 100 ML IVPB SCH ×3 (01:03→18:03)
[2016-05-17] MEDS ORDERED: *HR* OxyCODONE Immed Rel 5 MG TABLET PO PRN (01:05)
[2016-05-17] MEDS ORDERED: *HR* Morphine 2 MG/ML SYRINGE IVP PRN (01:05)
[2016-05-17 01:35] LABS: Hemoglobin 6.3 g/dL (12.9-16.9); VBG HCO3 25.4 mEq/L (21-27); VBG PH 7.34 pH Units (7.32-7.42)
[2016-05-17 01:37] LABS: Basophils % 0.4 %; Eosinophils # 0.1 K/mcL (0.0-0.6); Eosinophils % 0.7 %; Hematocrit 23.6 % (37.5-50.1); Immature Granulocytes % 1.2 % (0-4); Lymphocytes # 2.1 K/mcL (0.6-4.6); Lymphocytes % 20.8 %; Mean Corpuscular HGB Conc 26.7 g/dL (31.6-35.5); Mean Corpuscular Hemoglobin 21.8 pg (28.0-33.3); Mean Corpuscular Volume 81.7 fL (83.0-100.0); Mean Platelet Volume 9.4 fL (9.4-12.4); Monocytes # 1.6 K/mcL (0.0-1.3); Monocytes % 15.5 %; Neutrophils # 6.3 K/mcL (1.6-8.9); Nucleated Red Blood Cells 0.4 /100 WBC (0); Platelet Count 371 K/mcL (140-400); Red Blood Count 2.89 M/mcL (4.19-5.50); Red Cell Distribution Width 16.3 % (11.5-14.5); Segmented Neutrophils % 61.4 %
[2016-05-17 01:42] LABS: Ionized Calcium 0.98 mmol/L (1.15-1.35)
[2016-05-17 01:50] LABS: Magnesium 1.5 mg/dL (1.6-2.6); Phosphorous 3.5 mg/dL (2.3-4.7)
[2016-05-17 01:51] LABS: BUN/Creatinine Ratio 20 (6-26); Blood Urea Nitrogen 14 mg/dL (8-26); Carbon Dioxide 21 mEq/L (19-29); Chloride 104 mEq/L (98-109); Glucose 132 mg/dL (70-99); Osmolality,Calculated 284 (280-300); Sodium 136 mEq/L (136-145); eGFR For African Americans > 60 (> 60); eGFR For Non-African Americans > 60 (> 60)
[2016-05-17] MEDS: 0.9 % Sodium Chloride 1,000 ML IVC SCH ×3 (02:00→21:49)
[2016-05-17 02:16] LABS: Thyroid Stimulating Hormone 7.79 mcIU/mL (0.350-4.840); Triiodothyronine (T3) Free 1.38 pg/mL (1.71-3.71)
[2016-05-17 02:20] LABS: Anisocytosis 1+ (Not Present); Hypochromasia Present (Not Present)
[2016-05-17 02:22] LABS: Microcytosis Present (Not Present); Platelet Estimate Normal (Normal)
[2016-05-17] MEDS: Albumin 25% 25gram/100mL 25 GM/100 ML IV.SOLN IVC SCH ×2 (02:26→02:40)
[2016-05-17] MEDS: Ipratropium/Albuterol Neb 3 ML IH SCH ×6 (04:22→22:04)
[2016-05-17] MEDS ORDERED: *HR* Enoxaparin 40 MG/0.4 ML SYRINGE SQ SCH (07:00)
[2016-05-17] MEDS ORDERED: Vancomycin 1,250 MG in D5% in Water 250 ML IVPB SCH (09:00)
[2016-05-17] MEDS ORDERED: Vancomycin 1,500 MG in D5% in Water 250 ML IVPB ONE (09:30)
--- NOTE | 2016-05-17 09:59 | Internal Med Progress Note ---
<Best Vargas - Last Filed: 05/17/16 14:09> Date of Encounter: 05/17/16 Time of Encounter: 09:57 - Assessment and plan (1) Septic shock Current Visit: Yes Status: Acute Assessment and plan: Tachycardic and leukocytosis on presentation. Pneumonia presumed source although intra-abdominal infection and wound infection cannot be excluded. Lactic acid was 2.5 on presentation increase to 3.9 despite fluid hydration. Patient's hypotensive spite fluid resuscitation, requiring dopamine. Patient will be transferred to the ICU for close monitoring and care. (2) Pneumonia Current Visit: Yes Status: Acute Assessment and plan: Possibly community-acquired or aspiration. We will place on broad-spectrum antibiotics. Continue oxygen supplementation. Consider dedicated chest CT. Qualifiers: Pneumonia type: due to unspecified organism Laterality: unspecified laterality Lung location: lower lobe of lung Qualified Code(s): J18.1 - Lobar pneumonia, unspecified organism (3) Anemia Current Visit: Yes Status: Acute Assessment and plan: Unknown cause at this time. Concern for acute blood loss. Patient refuses rectal exam. Patient will be transfused 2 units. We will consider GI evaluation pending clinical course. Qualifiers: Anemia type: unspecified type Qualified Code(s): D64.9 - Anemia, unspecified (4) Abdominal pain Current Visit: Yes Status: Acute Assessment and plan: Unknown cause at this time. Concern for ingestion. CT abdomen was unremarkable for intra-abdominal source. Qualifiers: Abdominal location: generalized Qualified Code(s): R10.84 - Generalized abdominal pain (5) Prader-Willi syndrome Current Visit: Yes Status: Chronic - Subjective Interval history: Patient seen and examined at bedside. The patient is unable to give history due to baseline mental status. Patient does not appear to be in any acute distress. - Constitutional Vitals: Temp Pulse Resp BP Pulse Ox 97.7 F 91 16 83/54 97 05/17/16 07:00 05/17/16 07:00 05/17/16 07:00 05/17/16 07:00 05/17/16 07:00 General appearance: Present: cooperative, pleasant, no acute distress, answers questions appropriately - Respiratory Respiratory exam: Present: decreased breath sounds (Bilaterally). Absent: rales , rhonchi, wheezes - Cardiovascular Cardiovascular exam: Present: RRR, +S1, +S4. Absent: gallop, rubs, systolic murmur - GI/Abdominal GI/Abdominal exam: Present: normal bowel sounds, soft. Absent: distended, tenderness - Extremities Exam Additional comments: Patient had wraps on his lower extremities and he refused to allow me to remove. Dressings were clean dry and intact. - Neurological Exam Neurological exam: Present: alert, CN II-XII intact, oriented X3, no focal deficits - Psychiatric Psychiatric exam: Present: agitated Internal Medicine: Result - Labs CBC & Chem 7: 05/17/16 01:30 05/17/16 01:30 Labs: Short CBC 05/17/16 Range/Units 01:30 WBC 10.3 (4.3-11.1) K/mcL Hgb 6.3 L (12.9-16.9) g/dL Hct 23.6 L (37.5-50.1) % Plt Count 371 (140-400) K/mcL Neutrophils # 6.3 (1.6-8.9) K/mcL BMP 05/17/16 01:30 Sodium 136 Potassium 4.0 Chloride 104 Carbon Dioxide 21 BUN 14 Creatinine 0.71 L Glucose 132 H Calcium 7.0 L Cardiac Enzymes 05/17/16 Range/Units 04:51 Troponin I 0.25 H* (0-0.03) ng/mL Consult Discharge Plan - Plan Referrals: Evgeny Griffith MD [Primary Care Provider] - <Jordy Sharp - Last Filed: 05/17/16 19:22> Date of Encounter: 05/17/16 - Assessment and plan (1) Hypotension Current Visit: Yes Status: Acute Qualifiers: Hypotension type: other hypotension type Qualified Code(s): I95.89 - Other hypotension (2) Abdominal pain Current Visit: Yes Status: Acute Qualifiers: Abdominal location: generalized Qualified Code(s): R10.84 - Generalized abdominal pain - Constitutional Vitals: Temp Pulse Resp BP Pulse Ox 98.4 F 75 25 134/90 100 05/17/16 18:05 05/17/16 18:05 05/17/16 18:05 05/17/16 18:05 05/17/16 18:05 Internal Medicine: Result - Labs CBC & Chem 7: 05/17/16 01:30 05/17/16 01:30 Labs: Short CBC 05/17/16 Range/Units 01:30 WBC 10.3 (4.3-11.1) K/mcL Hgb 6.3 L (12.9-16.9) g/dL Hct 23.6 L (37.5-50.1) % Plt Count 371 (140-400) K/mcL Neutrophils # 6.3 (1.6-8.9) K/mcL BMP 05/17/16 01:30 Sodium 136 Potassium 4.0 Chloride 104 Carbon Dioxide 21 BUN 14 Creatinine 0.71 L Glucose 132 H Calcium 7.0 L Cardiac Enzymes 05/17/16 05/17/16 Range/Units 04:51 10:14 Troponin I 0.25 H* 0.25 H* (0-0.03) ng/mL - Impressions Impressions Lower Extremity CT 05/17/16 14:30 IMPRESSION: 1. Diffuse subcutaneous fat stranding and skin thickening of the bilateral lower extremities compatible with lymphedema versus cellulitis. No drainable fluid collection. Apparent soft tissue defects over the anteromedial aspects of the legs with possible uncovering of the underlying tibial diaphyses. 2. Questionable mild chronic periosteal reaction in the bilateral tibial diaphyses and left fibular diaphysis. If there is clinical concern for osteomyelitis further evaluation could be obtained with MRI. D/ / Job Rasmussen MD / Job Rasmussen MD Interpreting Provider: Job Rasmussen MD Lower Extremity CT 05/17/16 14:30 IMPRESSION: 1. Diffuse subcutaneous fat stranding and skin thickening of the bilateral lower extremities compatible with lymphedema versus cellulitis. No drainable fluid collection. Apparent soft tissue defects over the anteromedial aspects of the legs with possible uncovering of the underlying tibial diaphyses. 2. Questionable mild chronic periosteal reaction in the bilateral tibial diaphyses and left fibular diaphysis. If there is clinical concern for osteomyelitis further evaluation could be obtained with MRI. D/ / Job Rasmussen MD / Job Rasmussen MD Interpreting Provider: Job Rasmussen MD - Attending Attestation I examined this patient and my medical decision-making was reviewed with the Resident Physician on 05/17/16. I agree with the documented findings, disposition and treatment plan as described except to the extent set forth below. Mr. Junior is currently admitted for hypotension and anemia. He is high risk due to potential for worsening clinical status. Mr. Junior remains hypotensive on peripheral dopamine infusion. He denies pain. IV access is poor. Exam Alert. Heart reg Lungs clear Abd soft I/P 1. Hypotension 2. Anemia Transfer to ICU for further care.
[2016-05-17] MEDS: Hydrocortisone Sodium Succ 100 MG/2 ML VIAL IVP SCH ×3 (10:47→18:05)
[2016-05-17] MEDS: Pantoprazole 40 MG VIAL IVP SCH (10:54)
--- NOTE | 2016-05-17 11:04 | Pulmonology Consult Note ---
<Harsha Johnson - Last Filed: 05/17/16 17:05> Date of Encounter: 05/17/16 Time of Encounter: 11:01 Assessment and Plan (1) Septic shock Current Visit: Yes Status: Acute Mr. Junior was admitted with tachycardia, leukocytosis on presentation, lactic acid elevated from 2.5-3.9 despite fluid rehydration. He continued to be hypotensive despite fluid rehydration and antibiotic coverage. Antibiotics including vancomycin, Zosyn, Levaquin were started upon admission. Patient was originally on general medical floor due to nonresponsiveness to fluid rehydration and started on dopamine and was transferred to the ICU for continued care. Upon transfer to the ICU his blood pressure improved and he was weaned off dopamine. Possible source originally was concern for pneumonia seen on abdominal CT scan. CT scan of the lower extremities is concerning for osteomyelitis and infection. Patient continues to be in guarded condition and if it is true osteomyelitis may require transfer to [facility]. At this time we will continue current care and management in the ICU. Plan: - Continue Zosyn, vancomycin. - Discontinue Levaquin - Continue normal saline at 100 mL's per hour for maintenance coverage. - Continue ICU care. - Recheck lactic acid, CBC and CMP in a.m. (2) Wound, open, lower limb with complication Current Visit: Yes Status: Acute Patient has a history of lower extremity wounds on bilateral lower extremities. He has a history of picking at the scabs and reinfections. He is seen monthly for care of his lower extremities but they have progressively been getting worse in recent days. He was transferred to the ICU with septic shock with low blood pressures lactic acid of 3.9, concern for pneumonia with frequent vomiting. Review the CT abdomen scan is not as concerning for pneumonia in the lung bases. CT of the bilateral lower extremities demonstrated diffuse subcutaneous fat stranding with skin thickness the bilateral lower extremities compatible with lymphedema versus synovitis. No drainable fluid collections. Apparent soft tissue defect over the unit. Medial aspect of the legs with possible uncovering of the underlying tibial diaphyses. Questionable mild chronic periosteal reaction in the bilateral tibial diaphysis and left fibular diaphysis. There is clinical concern for osteomyelitis. Plan: - Spoke with orthopedic surgery, Dr. Ghotra, if we are concerned for osteomalacia the tibia recommended transfer to [facility]. - MRI of the bilateral lower extremities ordered for further evaluation. - Continued wound care. Qualifiers: Qualified Code(s): S81.809A - Unspecified open wound, unspecified lower leg, initial encounter (3) Anemia Current Visit: Yes Status: Acute History of microcytic anemia, hemoglobin 6.3 down from 7.2 yesterday. Review of laboratory results have noticed a hemoglobin low of 3. Currently worked up by hematology. Currently receiving 2 units PRBCs. Continue monitoring inpatient stay. Review of iron studies done earlier this month demonstrated a ferritin of 18. Iron deficiency anemia. Plan: - Monitor H&H with a.m. labs. 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 History of Present Illness Consult date: 05/17/16 Requesting physician: Best Vargas Reason for consult: other History of present illness: Mr. Junior is a 46 year old male with history of Prader-Willi syndrome who presents to the ER with lower quadrant abdominal pain, nausea, vomiting 2016. Leading up to his admission he had ingested an unknown amount of taco sauce that initiated vomiting episodes. By Sunday he had decreased oral intake which is abnormal for the patient with his known Prader-Willi syndrome. In the emergency department a CT of the abdomen was performs those concerning for lower lobe infiltration and increased size abdominal lymph nodes. He was found to be anemic in the emergency department with a history of chronic anemia for which he is seen by Hematology. He was admitted to general medical floor for continued evaluation. Overnight his hemoglobin dropped from 7.2-6.3, lactic acid elevated from 3.4-3.9, calcium 7.0, ionized calcium 0.98, magnesium 1.5, troponins 2 are 0.25, TSH of 7.790, random cortisol 15.2, renal function stable. There was concern regarding the patient's progression as he became hypotensive on the general medical floor and was transferred to the ICU for continued care. Upon transfer to the ICU he was evaluated at patient bedside. His sister was present. He has bilateral lower extremity wounds which his sister said have been present since he had cellulitis of the lower extremities resulting in wounds which she chronically picks at. He is seen monthly to have his lower extremity wounds evaluated. He denies any pain with his lower extremity wounds, He is very protective of allowing evaluation of his legs. His sisters provides a majority of his history. Caregiver and power of ip technology transactions attorney is his sister. Past Med Surg Social Fam HX - Past Medical History Medical history: other Psychiatric history: other - Past Surgical History Surgical History: cholecystectomy - Social History Smoking Status: Never smoker Smokeless Tobacco Status: No Alcohol use: none Drug use: none - Family History Mother Living Status: Hx Family Cardiac Disorders: Yes Medications and Allergies Multivitamin [Multi-Day Vitamins] 1 each PO DAILY 01/07/16 [History] Pentoxifylline [TRENtal] 400 mg PO BID 01/07/16 [History] Ascorbic Acid [Vitamin C] 500 mg PO DAILY #30 tablet 01/09/16 [Rx] Folic Acid 0.4 mg PO DAILY #30 tablet 01/09/16 [Rx] Furosemide [Lasix] 20 mg PO DAILY 02/02/16 [History] Ferrous Gluconate 324 mg PO BID #60 tablet 02/15/16 [Rx] Allergies cephalexin [From Keflex] Allergy (Verified 03/14/16 16:16) See Comments Pt unsure of reaction. chlorpromazine [From Thorazine] Allergy (Verified 03/14/16 16:16) See Comments All Systems: A 10-system review of systems was performed and is negative for pertinent findings except as documented above in the HPI. Review of Systems: Patient is alert awake oriented and interactive but denies any ROS asked. He is not presenting as a reliable source of information. Physical Examination Vital Signs: Vital Signs, Last 4 Hours Temp Pulse Resp BP Pulse Ox 05/17/16 10:00 98.7 F 85 28 86/56 99 General appearance: alert Gen. morbidly obese, alert awake oriented, well-developed well-nourished in no acute distress. HEENT: Normocephalic, atraumatic, pupils equal reactive EOMI intact, oral mucosa is moist, poor oral hygiene, thick neck, trachea midline non-tender to palpation. Chest/respiratory: Symmetric bilateral correlate with Restoril for respirations clear to auscultation all lung louise. Cardiac: Pale skin, regular rate and rhythm positive S1-S2 no murmurs or gallops appreciated, capillary refill is appropriate, radial and popliteal pulses 2+ Abdomen: Soft morbidly obese, nontender to palpation, positive bowel sounds, skin demonstrates erythema in the folds of his abdomen and groin. Extremities: Upper extremities have poor developmental progression, lower extremities bilateral are grossly enlarged bilateral, signs of erythema and wounds on his lower extremities which are wrapped with mild drainage. Results - Laboratory Findings CBC and BMP: 05/17/16 01:30 05/17/16 01:30 Abnormal lab findings: Abnormal lab results RBC 2.89 M/mcL (4.19-5.50) L 05/17/16 01:30 Hgb 6.3 g/dL (12.9-16.9) L 05/17/16 01:30 Hct 23.6 % (37.5-50.1) L 05/17/16 01:30 MCV 81.7 fL (83.0-100.0) L 05/17/16 01:30 MCH 21.8 pg (28.0-33.3) L 05/17/16 01:30 MCHC 26.7 g/dL (31.6-35.5) L 05/17/16 01:30 RDW 16.3 % (11.5-14.5) H 05/17/16 01:30 Monocytes # 1.6 K/mcL (0.0-1.3) H 05/17/16 01:30 Nucleated RBCs/100 WBC 0.4 /100 WBC (0) H 05/17/16 01:30 Polychromasia 1+ (Not Present) A 05/16/16 17:21 Hypochromasia Present (Not Present) A 05/17/16 01:30 Anisocytosis 1+ (Not Present) A 05/17/16 01:30 Microcytosis Present (Not Present) A 05/17/16 01:30 Creatinine 0.71 mg/dL (0.72-1.25) L 05/17/16 01:30 Glucose 132 mg/dL (70-99) H 05/17/16 01:30 Lactic Acid 3.9 mmol/L (0.5-2.2) H 05/17/16 01:30 Calcium 7.0 mg/dL (8.6-10.8) L 05/17/16 01:30 Ionized Calcium 0.98 mmol/L (1.15-1.35) L 05/17/16 01:30 Magnesium 1.5 mg/dL (1.6-2.6) L 05/17/16 01:30 Troponin I 0.25 ng/mL (0-0.03) H* 05/17/16 10:14 Serum Total Protein 5.4 g/dL (6.0-8.3) L 05/16/16 17:21 Albumin 1.8 g/dL (3.5-5.0) L 05/16/16 17:21 Globulin 3.6 g/dL (2.4-3.5) H 05/16/16 17:21 Albumin/Globulin Ratio 0.5 (1.1-2.2) L 05/16/16 17:21 Prealbumin 5.0 mg/dL (18.0-45.0) L 05/17/16 01:30 TSH 7.790 mcIU/mL (0.350-4.840) H 05/17/16 01:30 Free T3 1.38 pg/mL (1.71-3.71) L 05/17/16 01:30 Ur Specific Starbuck > 1.030 (1.010-1.025) H 05/16/16 22:04 Urine Protein 30 mg/dL (Neg-Trace) H 05/16/16 22:04 Urine Blood Small (Negative) H 05/16/16 22:04 Urine Microscopic RBC 3-5 per hpf (0-3) H 05/16/16 22:04 Ur Squamous Epith Cells Many per lpf (None-Few) H 05/16/16 22:04 - Clinical Findings Intake & Output: Intake & Output 05/16/16 05/17/16 05/17/16 23:59 07:59 15:59 Intake Total 200 / 200 75 / 75 Balance 200 / 200 75 / 75 Weight 83.3 kg Consult Discharge Plan - Plan Referrals: Evgeny Griffith MD [Primary Care Provider] - <Enrique Bone - Last Filed: 05/17/16 17:26> Date of Encounter: 05/17/16 All Systems: A 10-system review of systems was performed and is negative for pertinent findings except as documented above in the HPI. Physical Examination Vital Signs: Vital Signs, Last 4 Hours Temp Pulse Resp BP Pulse Ox 05/17/16 16:08 73 05/17/16 16:00 97.9 F 69 18 129/81 100 05/17/16 15:45 98.3 F 73 14 123/80 100 05/17/16 15:41 98.3 F 05/17/16 15:00 74 14 121/73 100 05/17/16 14:00 98.3 F 76 20 114/81 100 Results - Laboratory Findings CBC and BMP: 05/17/16 01:30 05/17/16 01:30 Abnormal lab findings: Abnormal lab results RBC 2.89 M/mcL (4.19-5.50) L 05/17/16 01:30 Hgb 6.3 g/dL (12.9-16.9) L 05/17/16 01:30 Hct 23.6 % (37.5-50.1) L 05/17/16 01:30 MCV 81.7 fL (83.0-100.0) L 05/17/16 01:30 MCH 21.8 pg (28.0-33.3) L 05/17/16 01:30 MCHC 26.7 g/dL (31.6-35.5) L 05/17/16 01:30 RDW 16.3 % (11.5-14.5) H 05/17/16 01:30 Monocytes # 1.6 K/mcL (0.0-1.3) H 05/17/16 01:30 Nucleated RBCs/100 WBC 0.4 /100 WBC (0) H 05/17/16 01:30 Polychromasia 1+ (Not Present) A 05/16/16 17:21 Hypochromasia Present (Not Present) A 05/17/16 01:30 Anisocytosis 1+ (Not Present) A 05/17/16 01:30 Microcytosis Present (Not Present) A 05/17/16 01:30 Creatinine 0.71 mg/dL (0.72-1.25) L 05/17/16 01:30 Glucose 132 mg/dL (70-99) H 05/17/16 01:30 Lactic Acid 3.9 mmol/L (0.5-2.2) H 05/17/16 01:30 Calcium 7.0 mg/dL (8.6-10.8) L 05/17/16 01:30 Ionized Calcium 0.98 mmol/L (1.15-1.35) L 05/17/16 01:30 Magnesium 1.5 mg/dL (1.6-2.6) L 05/17/16 01:30 Troponin I 0.25 ng/mL (0-0.03) H* 05/17/16 10:14 Serum Total Protein 5.4 g/dL (6.0-8.3) L 05/16/16 17:21 Albumin 1.8 g/dL (3.5-5.0) L 05/16/16 17:21 Globulin 3.6 g/dL (2.4-3.5) H 05/16/16 17:21 Albumin/Globulin Ratio 0.5 (1.1-2.2) L 05/16/16 17:21 Prealbumin 5.0 mg/dL (18.0-45.0) L 05/17/16 01:30 TSH 7.790 mcIU/mL (0.350-4.840) H 05/17/16 01:30 Free T3 1.38 pg/mL (1.71-3.71) L 05/17/16 01:30 Ur Specific Starbuck > 1.030 (1.010-1.025) H 05/16/16 22:04 Urine Protein 30 mg/dL (Neg-Trace) H 05/16/16 22:04 Urine Blood Small (Negative) H 05/16/16 22:04 Urine Microscopic RBC 3-5 per hpf (0-3) H 05/16/16 22:04 Ur Squamous Epith Cells Many per lpf (None-Few) H 05/16/16 22:04 - Clinical Findings Intake & Output: Intake & Output 05/17/16 05/17/16 05/17/16 07:59 15:59 23:59 Intake Total 200 / 200 555 / 555 Balance 200 / 200 555 / 555 Weight 83.3 kg - Attending Attestation I examined this patient and my medical decision-making was reviewed with the RENAL DIETITIAN/PA/Advanced Practice Nurse/Resident Physician. I agree with the documented findings, disposition and treatment plan as described except to the extent set forth below. Patient seen and examined. Labs, radiology, chart personally reviewed. Agree with resident's history and physical, assessment, plan with following comments: ROOM DESIGNER: Patient follows commands, however he has difficulty to communicate and that is concerning since it could be sicker than what he is actually say or looks. Pulmonary: Acceptable oxygenation and ventilation Cardiovascular: Unstable. I was called by the resident to assess patient and they found him to be on dopamine then he was transferred to ICU with improvement in his blood pressure with fluid and subsequently blood transfusion. However, still concern with his lactic acidosis and they feel the source could be his lower extremities and would like to make sure he does not have osteomyelitis. CT was done and then MRI was ordered for further evaluation. GI: Nutrition per dietary and GI prophylaxis per routine Heme: DVT prophylaxis per routine. Patient has chronic anemia and its severe enough for transfusion. ID: Continue antibiotics and plan to de-escalation Renal; urine out put and renal funtion reviewed Endorcine: blood glucose is monitored Lines: all lines checked and no evidence of infections Skin: skin care to prevent pressure ulcers per nursing routine care Discussed with the family at the bedside. I still feel the patient could deteriorate and I would like to keep him in ICU at least for another 24 hours. I spent 35 min of Critical Care time with this patient. It involved decision making of high complexity to assess, manipulate, and support vital organ system failure and/or to prevent further life threatening deterioration of the patient' s condition. The time involved in the performance of separately reportable procedures was not counted toward critical care time.
[2016-05-17] MEDS ORDERED: Gentamicin Oint 15 GM TUBE TP SCH (13:00)
[2016-05-17] MEDS: Vancomycin 1,250 MG in D5% in Water 250 ML IVPB SCH (21:50)
[2016-05-17] MEDS ORDERED: Levofloxacin 750 MG/150 ML 750 MG/150 ML BAG IVPB SCH (22:00)
[2016-05-18] MEDS: Hydrocortisone Sodium Succ 100 MG/2 ML VIAL IVP SCH ×3 (00:01→16:38)
[2016-05-18] MEDS: Piperacillin/Tazobactam 3.375 GM in D5% in Water (Mini-Bag+) 100 ML IVPB SCH ×3 (00:01→16:39)
[2016-05-18] MEDS: Ipratropium/Albuterol Neb 3 ML IH SCH ×5 (03:23→19:13)
[2016-05-18] MEDS: 0.9 % Sodium Chloride 1,000 ML IVC SCH ×2 (03:40→16:39)
[2016-05-18 05:22] LABS: Basophils % 0.2 %; Hematocrit 30.9 % (37.5-50.1); Immature Granulocytes % 1.7 % (0-4); Lymphocytes # 1.1 K/mcL (0.6-4.6); Mean Corpuscular HGB Conc 29.1 g/dL (31.6-35.5); Mean Corpuscular Hemoglobin 22.7 pg (28.0-33.3); Mean Platelet Volume 9.7 fL (9.4-12.4); Monocytes # 0.5 K/mcL (0.0-1.3); Monocytes % 7.6 %; Neutrophils # 4.9 K/mcL (1.6-8.9); Nucleated Red Blood Cells 1.1 /100 WBC (0); Platelet Count 259 K/mcL (140-400); Red Blood Count 3.96 M/mcL (4.19-5.50); Red Cell Distribution Width 16.6 % (11.5-14.5); Segmented Neutrophils % 74.5 %
[2016-05-18] MEDS: Pantoprazole 40 MG VIAL IVP SCH (05:35)
[2016-05-18 05:50] LABS: Alanine Aminotransferase 119 Units/L (0-55); Albumin/Globulin Ratio 0.8 (1.1-2.2); Alkaline Phosphatase 118 Units/L (38-126); Aspartate Amino Transferase 114 Units/L (5-34); BUN/Creatinine Ratio 12 (6-26); Blood Urea Nitrogen 7 mg/dL (8-26); Calcium 7.7 mg/dL (8.6-10.8); Carbon Dioxide 23 mEq/L (19-29); Chloride 106 mEq/L (98-109); Globulin 3.2 g/dL (2.4-3.5); Glucose 128 mg/dL (70-99); Osmolality,Calculated 284 (280-300); Potassium 4.1 mEq/L (3.5-4.5); Sodium 137 mEq/L (136-145); Total Protein 5.8 g/dL (6.0-8.3); eGFR For African Americans > 60 (> 60); eGFR For Non-African Americans > 60 (> 60)
[2016-05-18 06:07] LABS: Albumin 2.6 g/dL (3.5-5.0)
[2016-05-18] MEDS: Vancomycin 1,250 MG in D5% in Water 250 ML IVPB SCH ×2 (08:32→22:56)
--- NOTE | 2016-05-18 08:40 | Pulmonology Progress Note ---
<AnayelilillyHarsha Zhao - Last Filed: 05/18/16 13:05> Date of Encounter: 05/18/16 Time of Encounter: 08:40 Assessment and Plan (1) Septic shock Current Visit: Yes Status: Acute Mr. Junior was admitted with tachycardia, leukocytosis on presentation, lactic acid elevated from 2.5-3.9 despite fluid rehydration. He continued to be hypotensive despite fluid rehydration and antibiotic coverage. Antibiotics including vancomycin, Zosyn, Levaquin were started upon admission. Patient was originally on general medical floor due to nonresponsiveness to fluid rehydration and started on dopamine and was transferred to the ICU for continued care. Upon transfer to the ICU his blood pressure improved and he was weaned off dopamine. Possible source originally was concern for pneumonia seen on abdominal CT scan. CT scan of the lower extremities is concerning for osteomyelitis and infection. Patient continues to be in guarded condition and if it is true osteomyelitis may require transfer to [facility]. At this time we will continue current care and management in the ICU. 05/18/2016 patient has had stable vitals not on any pressor support, renal function stable. Continued on antibiotics without any problems. Patient stable. Continue concern for osteomyelitis with MRIs of the lower extremities pending. Plan: - Continue Zosyn, vancomycin. - Continue normal saline at 100 mL's per hour for maintenance coverage. - Transfer to general medical floor - Draw lactic acid (2) Wound, open, lower limb with complication Current Visit: Yes Status: Acute Patient has a history of lower extremity wounds on bilateral lower extremities. He has a history of picking at the scabs and reinfections. He is seen monthly for care of his lower extremities but they have progressively been getting worse in recent days. He was transferred to the ICU with septic shock with low blood pressures lactic acid of 3.9, concern for pneumonia with frequent vomiting. Review the CT abdomen scan is not as concerning for pneumonia in the lung bases. CT of the bilateral lower extremities demonstrated diffuse subcutaneous fat stranding with skin thickness the bilateral lower extremities compatible with lymphedema versus synovitis. No drainable fluid collections. Apparent soft tissue defect over the unit. Medial aspect of the legs with possible uncovering of the underlying tibial diaphyses. Questionable mild chronic periosteal reaction in the bilateral tibial diaphysis and left fibular diaphysis. There is clinical concern for osteomyelitis. 05/18/2016: Continue current antibiotic coverage, MRIs of the lower extremities bilaterally pending. Will likely require transfer to [facility] if osteomyelitis is found. Plan: - Spoke with orthopedic surgery, Dr. Ghotra, if we are concerned for osteomyelitis of the tibia recommended transfer to [facility]. - MRI of the bilateral lower extremities ordered for further evaluation. - Continued wound care. Qualifiers: Qualified Code(s): S81.809A - Unspecified open wound, unspecified lower leg, initial encounter (3) Anemia Current Visit: Yes Status: Acute History of microcytic anemia, hemoglobin 6.3 down from 7.2 yesterday. Review of laboratory results have noticed a hemoglobin low of 3. Currently worked up by hematology. Currently receiving 2 units PRBCs. Continue monitoring inpatient stay. Review of iron studies done earlier this month demonstrated a ferritin of 18. Iron deficiency anemia. 05/18/2016 patient received 2 units PRBCs yesterday with a current hemoglobin of 9.0, we will continue to monitor hemoglobin daily CBC. Patient remained stable. Plan: - Monitor H&H with a.m. labs. 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 Subjective Interval history: The patient is seen and examined patient bedside this morning. He is alert awake interactive in no acute distress. He denies any pain or any discomfort at this time. He is hungry and has to eat food. He denies having any bowel movements or discomforts. He denies pain in his legs or any other concerns at this time. Objective PUL Vital signs: Last Vital Signs Temp 97.7 F 05/18/16 07:40 Pulse 64 05/18/16 06:00 Resp 18 05/18/16 06:00 BP 152/96 05/18/16 06:00 Pulse Ox 100 05/18/16 06:00 Gen. morbidly obese, alert awake oriented, well-developed well-nourished in no acute distress. HEENT: Normocephalic, atraumatic, pupils equal reactive EOMI intact, oral mucosa is moist, poor oral hygiene, thick neck, trachea midline non-tender to palpation. Chest/respiratory: Symmetric bilateral correlate with Restoril for respirations clear to auscultation all lung louise. Cardiac: Pale skin, regular rate and rhythm positive S1-S2 no murmurs or gallops appreciated, capillary refill is appropriate, radial and popliteal pulses 2+ Abdomen: Soft morbidly obese, nontender to palpation, positive bowel sounds, skin demonstrates erythema in the folds of his abdomen and groin. Extremities: Upper extremities have poor developmental progression, lower extremities bilateral are grossly enlarged bilateral, signs of erythema and wounds on his lower extremities which are wrapped with mild drainage. Results - Laboratory Findings CBC and BMP: 05/18/16 05:10 05/18/16 05:10 Abnormal lab findings: Abnormal lab results RBC 3.96 M/mcL (4.19-5.50) L 05/18/16 05:10 Hgb 9.0 g/dL (12.9-16.9) L D 05/18/16 05:10 Hct 30.9 % (37.5-50.1) L 05/18/16 05:10 MCV 78.0 fL (83.0-100.0) L 05/18/16 05:10 MCH 22.7 pg (28.0-33.3) L 05/18/16 05:10 MCHC 29.1 g/dL (31.6-35.5) L 05/18/16 05:10 RDW 16.6 % (11.5-14.5) H 05/18/16 05:10 Nucleated RBCs/100 WBC 1.1 /100 WBC (0) H 05/18/16 05:10 Polychromasia 1+ (Not Present) A 05/16/16 17:21 Hypochromasia Present (Not Present) A 05/17/16 01:30 Anisocytosis 1+ (Not Present) A 05/17/16 01:30 Microcytosis Present (Not Present) A 05/17/16 01:30 BUN 7 mg/dL (8-26) L 05/18/16 05:10 Creatinine 0.58 mg/dL (0.72-1.25) L 05/18/16 05:10 Glucose 128 mg/dL (70-99) H 05/18/16 05:10 POC Glucose 116 (58-89) H 05/17/16 09:50 Lactic Acid 3.9 mmol/L (0.5-2.2) H 05/17/16 01:30 Calcium 7.7 mg/dL (8.6-10.8) L 05/18/16 05:10 Ionized Calcium 0.98 mmol/L (1.15-1.35) L 05/17/16 01:30 Magnesium 1.5 mg/dL (1.6-2.6) L 05/17/16 01:30 AST 114 Units/L (5-34) H 05/18/16 05:10 ALT 119 Units/L (0-55) H 05/18/16 05:10 Troponin I 0.08 ng/mL (0-0.03) H* 05/17/16 22:19 Serum Total Protein 5.8 g/dL (6.0-8.3) L 05/18/16 05:10 Albumin 2.6 g/dL (3.5-5.0) L D 05/18/16 05:10 Albumin/Globulin Ratio 0.8 (1.1-2.2) L 05/18/16 05:10 Prealbumin 5.0 mg/dL (18.0-45.0) L 05/17/16 01:30 TSH 7.790 mcIU/mL (0.350-4.840) H 05/17/16 01:30 Free T3 1.38 pg/mL (1.71-3.71) L 05/17/16 01:30 Ur Specific [place] > 1.030 (1.010-1.025) H 05/16/16 22:04 Urine Protein 30 mg/dL (Neg-Trace) H 05/16/16 22:04 Urine Blood Small (Negative) H 05/16/16 22:04 Urine Microscopic RBC 3-5 per hpf (0-3) H 05/16/16 22:04 Ur Squamous Epith Cells Many per lpf (None-Few) H 05/16/16 22:04 - Clinical Findings Intake & Output: Intake & Output 05/17/16 05/18/16 05/18/16 23:59 07:59 15:59 Intake Total 1999 1100 / 1100 Balance 1999 1100 / 1100 Consult Discharge Plan - Plan Referrals: Evgeny Griffith MD [Primary Care Provider] - <Enrique Bone - Last Filed: 05/18/16 16:56> Date of Encounter: 05/18/16 Objective PUL Vital signs: Last Vital Signs Temp 97.5 F L 05/18/16 15:49 Pulse 70 05/18/16 12:50 Resp 18 05/18/16 12:50 BP 141/67 05/18/16 08:00 Pulse Ox 98 05/18/16 12:50 Results - Laboratory Findings CBC and BMP: 05/18/16 05:10 05/18/16 05:10 Abnormal lab findings: Abnormal lab results RBC 3.96 M/mcL (4.19-5.50) L 05/18/16 05:10 Hgb 9.0 g/dL (12.9-16.9) L D 05/18/16 05:10 Hct 30.9 % (37.5-50.1) L 05/18/16 05:10 MCV 78.0 fL (83.0-100.0) L 05/18/16 05:10 MCH 22.7 pg (28.0-33.3) L 05/18/16 05:10 MCHC 29.1 g/dL (31.6-35.5) L 05/18/16 05:10 RDW 16.6 % (11.5-14.5) H 05/18/16 05:10 Nucleated RBCs/100 WBC 1.1 /100 WBC (0) H 05/18/16 05:10 Polychromasia 1+ (Not Present) A 05/16/16 17:21 Hypochromasia Present (Not Present) A 05/17/16 01:30 Anisocytosis 1+ (Not Present) A 05/17/16 01:30 Microcytosis Present (Not Present) A 05/17/16 01:30 BUN 7 mg/dL (8-26) L 05/18/16 05:10 Creatinine 0.58 mg/dL (0.72-1.25) L 05/18/16 05:10 Glucose 128 mg/dL (70-99) H 05/18/16 05:10 POC Glucose 116 (58-89) H 05/17/16 09:50 Lactic Acid 3.8 mmol/L (0.5-2.2) H 05/18/16 16:06 Calcium 7.7 mg/dL (8.6-10.8) L 05/18/16 05:10 Ionized Calcium 0.98 mmol/L (1.15-1.35) L 05/17/16 01:30 Magnesium 1.5 mg/dL (1.6-2.6) L 05/17/16 01:30 AST 114 Units/L (5-34) H 05/18/16 05:10 ALT 119 Units/L (0-55) H 05/18/16 05:10 Troponin I 0.08 ng/mL (0-0.03) H* 05/17/16 22:19 Serum Total Protein 5.8 g/dL (6.0-8.3) L 05/18/16 05:10 Albumin 2.6 g/dL (3.5-5.0) L D 05/18/16 05:10 Albumin/Globulin Ratio 0.8 (1.1-2.2) L 05/18/16 05:10 Prealbumin 5.0 mg/dL (18.0-45.0) L 05/17/16 01:30 TSH 7.790 mcIU/mL (0.350-4.840) H 05/17/16 01:30 Free T3 1.38 pg/mL (1.71-3.71) L 05/17/16 01:30 Ur Specific [place] > 1.030 (1.010-1.025) H 05/16/16 22:04 Urine Protein 30 mg/dL (Neg-Trace) H 05/16/16 22:04 Urine Blood Small (Negative) H 05/16/16 22:04 Urine Microscopic RBC 3-5 per hpf (0-3) H 05/16/16 22:04 Ur Squamous Epith Cells Many per lpf (None-Few) H 05/16/16 22:04 - Clinical Findings Intake & Output: Intake & Output 05/18/16 05/18/16 05/18/16 07:59 15:59 23:59 Intake Total 1100 / 1100 1030 / 1030 Balance 1100 / 1100 1030 / 1030 - Attending Attestation I examined this patient and my medical decision-making was reviewed with the FLEET ADMINISTRATOR/PA/Advanced Practice Nurse/Resident Physician. I agree with the documented findings, disposition and treatment plan as described except to the extent set forth below. Patient seen and examined. Labs, radiology, chart personally reviewed. 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 I am still concerned about osteomyelitis and orthopedic was consulted also podiatry know this patient. Patient will be transferred to the floor on antibiotics and most likely will need to be transferred to another facility. Renal; urine out put and renal funtion reviewed Endorcine: blood glucose is monitored Lines: all lines checked and no evidence of infections Skin: skin care to prevent pressure ulcers per nursing routine care
[2016-05-18] MEDS ORDERED: Acetaminophen 325 MG TABLET PO PRN (15:22)
[2016-05-18] MEDS ORDERED: Ondansetron 4 MG/2 ML VIAL IVP PRN (15:22)
[2016-05-18] MEDS ORDERED: Naloxone 0.4 MG/ML INJ IVP PRN (15:22)
[2016-05-18] MEDS ORDERED: *HR* Morphine 2 MG/ML SYRINGE IVP PRN (15:22)
[2016-05-18] MEDS ORDERED: Albuterol 2.5 MG/3 ML NEBULIZER IH PRN (15:22)
[2016-05-18] MEDS: Gentamicin Oint 15 GM TUBE TP SCH (16:38)
[2016-05-18] MEDS ORDERED: Gentamicin Oint 15 GM TUBE TP SCH (17:00)
--- NOTE | 2016-05-18 17:58 | Oncology Inp Consult Note ---
Date of Encounter: 05/19/16 Time of Encounter: 17:00 Assessment and Plan (1) Anemia Status: Chronic Assessment and plan: Anemia, patient with known iron deficiency but recent ferritin at low levels, status post PRBC transfusion status post colonoscopy in 2014 with infection, sepsis, monitor hemoglobin and transfuse PRBC as necessary. Will receive intravenous iron replacement therapy in the clinic after treatment for sepsis, discharged from the hospital stay. Hgb 05/18/16 steady at 9gm Of care was discussed with patient's sister is in agreement with above. Qualifiers: Anemia type: iron deficiency Iron deficiency anemia type: inadequate dietary iron intake Qualified Code(s): D50.8 - Other iron deficiency anemias - Data of Consult Requesting Physician: Jordy Sharp DO Primary Care Provider: Evgeny Griffith MD - Consult Narrative Reason for consult: anemia History of present illness: Mr. Junior is a 46 year old male with medical history significant for congenital Selvin Willi syndrome and iron deficiency anemia seen recently in hematology clinic May 2016, patient's hemoglobin usually runs between 7 and 9 g with injectafer in Jan. She was hospitalized with symptoms of sepsis, cellulitis and lower extremity in CT imaging, hemoglobin of around 7.2 and ferritin of 4. He is currently hypotensive from septic shock? From open wound in the lower extremity, on Zosyn and vancomycin. Patient had received blood transfusion for hemoglobin from 6 g since hospitalization-2 units. She is clinically stable. Plan to be downgraded to regular floor. Seen bedside with his sister. Past Med Surg Social Fam HX - Past Medical History Medical history: other Psychiatric history: other - Past Surgical History Surgical History: cholecystectomy - Social History Smoking Status: Never smoker Smokeless Tobacco Status: No Alcohol use: none Drug use: none - Family History Mother Living Status: Hx Family Cardiac Disorders: Yes Medications and Allergies Multivitamin [Multi-Day Vitamins] 1 each PO DAILY 01/07/16 [History] Pentoxifylline [TRENtal] 400 mg PO BID 01/07/16 [History] Ascorbic Acid [Vitamin C] 500 mg PO DAILY #30 tablet 01/09/16 [Rx] Folic Acid 0.4 mg PO DAILY #30 tablet 01/09/16 [Rx] Furosemide [Lasix] 20 mg PO DAILY 02/02/16 [History] Ferrous Gluconate 324 mg PO BID #60 tablet 02/15/16 [Rx] Allergies cephalexin [From Keflex] Allergy (Verified 03/14/16 16:16) See Comments Pt unsure of reaction. chlorpromazine [From Thorazine] Allergy (Verified 03/14/16 16:16) See Comments ROS unobtainable: due to mental status Review of systems: as in HPI, limited Oncology - Exam - Constitutional Vitals: Temp Pulse Resp BP Pulse Ox 97.5 F L 70 18 141/67 98 05/18/16 15:49 05/18/16 12:50 05/18/16 12:50 05/18/16 08:00 05/18/16 12:50 General appearance: morbidly obese - Head Head exam: Present: atraumatic - ENT ENT exam: Present: mucous membranes moist - Respiratory Respiratory exam: Present: CTAB - Cardiovascular Cardiovascular exam: Present: +S1, +S2 - GI/Abdominal GI/Abdominal exam: Present: normal bowel sounds, soft - Extremities Exam Additional comments: edema, wound dressing nurys lower ext - Neurological Exam Additional comments: growth retardation - Skin Additional comments: as above in lower ext Oncology - Results - Labs Labs: Short CBC 05/18/16 Range/Units 05:10 WBC 6.6 (4.3-11.1) K/mcL Hgb 9.0 L D (12.9-16.9) g/dL Hct 30.9 L (37.5-50.1) % Plt Count 259 (140-400) K/mcL Neutrophils # 4.9 (1.6-8.9) K/mcL BMP 05/18/16 05:10 Sodium 137 Potassium 4.1 Chloride 106 Carbon Dioxide 23 BUN 7 L Creatinine 0.58 L Glucose 128 H Calcium 7.7 L Cardiac Enzymes 05/17/16 Range/Units 22:19 Troponin I 0.08 H* (0-0.03) ng/mL Liver Function 05/18/16 Range/Units 05:10 Total Bilirubin 1.0 D (0.2-1.2) mg/dL AST 114 H (5-34) Units/L ALT 119 H (0-55) Units/L Alkaline Phosphatase 118 (38-126) Units/L Albumin 2.6 L D (3.5-5.0) g/dL Consult Discharge Plan - Plan Referrals: Evgeny Griffith MD [Primary Care Provider] -
[2016-05-19] MEDS: Hydrocortisone Sodium Succ 100 MG/2 ML VIAL IVP SCH ×4 (01:13→18:46)
[2016-05-19] MEDS: Piperacillin/Tazobactam 3.375 GM in D5% in Water (Mini-Bag+) 100 ML IVPB SCH ×3 (01:13→16:05)
[2016-05-19] MEDS: Ipratropium/Albuterol Neb 3 ML IH SCH ×3 (03:01→15:31)
[2016-05-19] MEDS: 0.9 % Sodium Chloride 1,000 ML IVC SCH (06:23)
[2016-05-19] MEDS ORDERED: Pantoprazole 40 MG VIAL IVP SCH (06:30)
[2016-05-19] MEDS: Vancomycin 1,250 MG in D5% in Water 250 ML IVPB SCH (10:00)
[2016-05-19 15:56] VITALS: BP 122/78
[2016-05-19] MEDS: Gentamicin Oint 15 GM TUBE TP SCH (16:05)
--- NOTE | 2016-05-19 17:08 | Discharge Summary ---
Date of Encounter: 05/19/16 Time of Encounter: 17:06 - Discharge Diagnosis (1) Osteomyelitis Priority: Primary Status: Chronic Qualifiers: Osteomyelitis type: other chronic Osteomyelitis location: tibia Laterality: unspecified laterality Qualified Code(s): M86.669 - Other chronic osteomyelitis, unspecified tibia and fibula (2) Acute hypoxemic respiratory failure Priority: Primary Status: Acute (3) Community acquired pneumonia Priority: Primary Status: Acute (4) Septic shock Priority: Primary Status: Resolved (5) Anemia Priority: Secondary Status: Chronic Qualifiers: Anemia type: iron deficiency Iron deficiency anemia type: inadequate dietary iron intake Qualified Code(s): D50.8 - Other iron deficiency anemias (6) Prader-Willi syndrome Priority: Secondary Status: Chronic (7) Venous ulcer of lower leg without varicose veins Priority: Secondary Status: Chronic - Discharge Medications Home Medications: Multivitamin [Multi-Day Vitamins] 1 each PO DAILY 01/07/16 [History] Pentoxifylline [TRENtal] 400 mg PO BID 01/07/16 [History] Ascorbic Acid [Vitamin C] 500 mg PO DAILY #30 tablet 01/09/16 [Rx] Folic Acid 0.4 mg PO DAILY #30 tablet 01/09/16 [Rx] Furosemide [Lasix] 20 mg PO DAILY 02/02/16 [History] Ferrous Gluconate 324 mg PO BID #60 tablet 02/15/16 [Rx] Allergies/Adverse Reactions: Allergies cephalexin [From Keflex] Allergy (Verified 03/14/16 16:16) See Comments Pt unsure of reaction. chlorpromazine [From Thorazine] Allergy (Verified 03/14/16 16:16) See Comments Procedures/tests Complete & Pending: Procedures Performed prior 72 hours Category Date Time Status CT lower leg LT wo con [CT] Routine Cat Scan 05/17/16 14:[address] lower leg RT wo con [CT] Routine Cat Scan 05/17/16 14:30 Completed MR lower leg LT wo con [MR] Routine MRI 05/18/16 12:28 Completed MR lower leg RT wo con [MR] Routine MRI 05/18/16 12:28 Completed Date of admission: 05/17/16 01:13 Primary care physician: Evgeny Griffith MD Consults: 05/17/16 08:00 Consult to Invasive Line Access Team [CONS] Routine Reason for Consult: Lack of venous access Line Type: PICC PICC line indications: Limited vascular access Time Notified: 04:54 Call Completed: No 05/17/16 08:42 Consult to Critical Care [CONS] Routine Consulting Provider: Saud Lewis & Mulu Almaguer Reason for Consult: Hypotension/possible sepsis Call Completed: Yes 05/17/16 13:17 Consult to Invasive Line Access Team [CONS] Routine Reason for Consult: poor IV access Line Type: EPIV 05/17/16 16:08 Consult to Orthopedic Surgery [CONS] Routine Consulting Provider: Harsha Johnson Reason for Consult: Concern for bilateral LE osteomylitis, spoke with Dr. Hall's PA - 8:00AM 05/18/16 - I touched base with Resident Dr.Alex Finch this morning - MRIs were put on hold for lower extremities. At this point, they have put orthopedic consult on hold. We are happy to consult at any time in the future. If osteomyelitis is present, recommend transfer. Pending MRI - SWAPNIL FRIED Time Notified: 16:00 Call Completed: Yes Discharging clinician: Elizabet Jaramillo Anticipated date of discharge: 05/19/16 - Patient Status Disposition: Transfer Other Condition: Fair Functional capacity at discharge: independent ambulation Overall status at discharge: patient is not back to baseline - Discharge Instructions Follow Up With: Evgeny Griffith MD [Primary Care Provider] - (SCHEDULE BEFORE DC) Additional Instructions: Take medications as prescribed. Have a follow-up with PCP scheduled before DC. - Diet and Activity Diet: regular diet Hospital course: Mr. Junior is a 46 year old male with Prader-Willi syndrome and chronic bilateral leg ulcers, was initially admitted with persistent nausea and vomiting and dehydration. He later developed shock, likely septic and had to be transferred to ICU and started on IV dopamine. He had mild elevation in troponin, lactic acidosis and elevated liver enzymes likely due to septic shock. He was started on broad-spectrum IV antibiotics for possible right lower lobe pneumonia, possible aspiration during his initial episode of vomiting at home. He was also noted to have chronic bilateral leg ulcers and there was a question of them being infected. CT and MRI of bilateral lower extremities were done, which showed unclear changes that could suggest chronic osteomyelitis are chronic reaction to venous ulcers. He septic shock gradually resolved and he remained hemodynamically stable, no longer requiring vasopressors, no fever or leukocytosis. His lactic acid remained mildly elevated. Case was discussed with pit crew support worker and it was decided the best plan was to transfer patient for higher level of care. This was discussed with family, patient's sister is his legal power of energy attorney, who is in agreement with this transfer. Patient is medically stable for transfer. - Time Spent with Patient Total time spent providing and/or coordinating discharge services: Greater than 30 minutes (55 min) - Constitutional Vitals: Temp Pulse Resp BP Pulse Ox 97.4 F L 62 18 122/78 97 05/19/16 15:55 05/19/16 15:55 05/19/16 15:55 05/19/16 15:55 05/19/16 15:55 General appearance: Present: A&O X 1, pleasant, obese - Respiratory Respiratory exam: Present: CTAB, rales (faint bibasal crackles). Absent: accessory muscle use, rhonchi, wheezes - Cardiovascular Cardiovascular exam: Present: RRR, +S1, +S2. Absent: diastolic murmur, gallop, rubs, systolic murmur - Extremities Exam Extremities exam: Present: warm, radial pulses palpable and symetrical. Absent : calf tenderness, cyanotic, pedal edema
[2016-05-19] MEDS ORDERED: Aminoglycoside Consult 1 EACH MC ONE (19:52)
== END 2016-05-19 19:53 | disposition other institution (70) | DRG 871 ==
LOC: 2NENU 14:42 → EMEROO 14:42 → 2NENU 22:27 → SUATTDRO 05-17 01:13 → ICNU 05-17 09:43 → 3NENU 05-18 19:54
PROVIDERS: ADMIT Internal Medicine; ATTEND Internal Medicine

== ENCOUNTER 2016-05-22 20:45 | Inpatient (IN) ==
[2016-05-22 22:11] LABS: Basophils % 0.2 %; Nucleated Red Blood Cells 0.1 /100 WBC (0)
[2016-05-22 22:12] LABS: Basophils # 0.1 K/mcL (0.0-0.2); Eosinophils % 4.5 %; Hematocrit 30.5 % (37.5-50.1); Hemoglobin 8.7 g/dL (12.9-16.9); Immature Granulocytes % 2.2 % (0-4); Lymphocytes # 1.8 K/mcL (0.6-4.6); Mean Corpuscular HGB Conc 28.5 g/dL (31.6-35.5); Mean Corpuscular Volume 80.5 fL (83.0-100.0); Mean Platelet Volume 9.8 fL (9.4-12.4); Monocytes # 2.2 K/mcL (0.0-1.3); Monocytes % 9.6 %; Neutrophils # 17.3 K/mcL (1.6-8.9); Platelet Count 398 K/mcL (140-400); Red Blood Count 3.79 M/mcL (4.19-5.50); Red Cell Distribution Width 17.1 % (11.5-14.5); Segmented Neutrophils % 75.5 %
[2016-05-22 22:22] LABS: INR 1.1; Prothrombin Time 12.1 Seconds (9.4-12.1)
[2016-05-22 22:24] LABS: Activated Partial Thrombo Time 27.5 Seconds (26.0-36.0)
[2016-05-22 22:27] LABS: Alanine Aminotransferase 41 Units/L (0-55); Albumin 2.4 g/dL (3.5-5.0); Albumin/Globulin Ratio 0.8 (1.1-2.2); Alkaline Phosphatase 107 Units/L (38-126); Aspartate Amino Transferase 27 Units/L (5-34); BUN/Creatinine Ratio 18 (6-26); Bilirubin,Direct 0.2 mg/dL (0.0-0.5); Bilirubin,Indirect 0.2 mg/dL (0.0-1.2); Bilirubin,Total 0.4 mg/dL (0.2-1.2); Blood Urea Nitrogen 14 mg/dL (8-26); Carbon Dioxide 31 mEq/L (19-29); Chloride 102 mEq/L (98-109); Globulin 3.1 g/dL (2.4-3.5); Glucose 102 mg/dL (70-99); Magnesium 1.6 mg/dL (1.6-2.6); Osmolality,Calculated 289 (280-300); Phosphorous 2.5 mg/dL (2.3-4.7); Potassium 4.5 mEq/L (3.5-4.5); Sodium 139 mEq/L (136-145); Total Protein 5.5 g/dL (6.0-8.3); eGFR For African Americans > 60 (> 60); eGFR For Non-African Americans > 60 (> 60)
[2016-05-22 22:33] LABS: Anisocytosis 1+ (Not Present); Hypochromasia Present (Not Present); Platelet Estimate Normal (Normal); Poikilocytosis 1+ (Not Present)
[2016-05-22] MEDS: Gentamicin Oint 15 GM TUBE TP SCH (23:42)
--- NOTE | 2016-05-23 00:32 | Emergency Department Note ---
Disposition Clinical Impression: Osteomyelitis of left lower extremity, Osteomyelitis of right lower extremity Disposition: Admitted As Inpatient Condition: Fair Referrals: Evgeny Griffith MD [Primary Care Provider] - Forms: ED Satisfaction Letter Time of Disposition: 00:42 General Adult HPI - General Chief complaint: ED Shortness of Breath/Dyspnea Stated complaint: worsening symptoms for pneumonia Time Seen by Provider: 05/22/16 21:18 Source: patient, EMS Mode of arrival: EMS Limitations: no limitations Nursing Notes Reviewed: Yes Vital Signs Reviewed: Yes - History of Present Illness HPI Narrative: Patient is a 46-year-old white male with history of Prader-Willi syndrome who is brought to the emergency by family because of report of shortness of breath and deterioration of leg wounds. Patient was seen by me a few days ago and was felt to be septic and possibly have ostial in his legs. We admitted him here to our hospital and he was suddenly transferred [facility] for wound management. Apparently he was let out of there today on by mouth antibiotics. Since being home he is done very poorly. He is not able to use his legs. The legs are weeping dramatically in a way that family has not seen before. Patient is having tremendous amount of pain also. Onset (ago): unknown (These are chronic issues.) Location: lower extremity (Bilateral lower extremities.) Pain Severity: severe Pain Scale: 8 Quality: sharp Consistency: constant Improves with: nothing Worsens with: movement, other (Palpation) Associated symptoms: Reports: shortness of breath (Patient was short of breath at home and was noted to be queasy although has improved on arrival to the department.) - Related Data Home Medications Medication Instructions Recorded Confirmed Multivitamin [Multi-Day Vitamins] 1 each PO DAILY 01/07/16 05/16/16 Pentoxifylline [TRENtal] 400 mg PO BID 01/07/16 05/16/16 Furosemide [Lasix] 20 mg PO DAILY 02/02/16 05/16/16 Previous Rx's Medication Instructions Recorded Ascorbic Acid [Vitamin C] 500 mg PO DAILY #30 tablet 01/09/16 Folic Acid 0.4 mg PO DAILY #30 tablet 01/09/16 Ferrous Gluconate 324 mg PO BID #60 tablet 02/15/16 Allergies Allergy/AdvReac Type Severity Reaction Status Date / Time cephalexin [From Keflex] Allergy See Verified 03/14/16 16:16 Comments chlorpromazine Allergy See Verified 03/14/16 16:16 [From Thorazine] Comments All systems ED: reviewed and negative except as stated. Constitutional: Denies: fever, chills Cardiovascular: Denies: chest pain, palpitations Respiratory: Reports: dyspnea, wheezes. Denies: cough Gastrointestinal: Denies: abdominal pain, vomiting, diarrhea Neurological: Denies: headache Past Medical History - Past Medical History Attestation: Yes The following information was validated with the patient. Source: patient, old records reviewed, obtained from family, nursing notes reviewed Medical history: Reports: other (Patient has Prader-Willi syndrome. He picks at his skin. He is literally pick the skin off the distal third of both legs so that the muscle and deep tissues are exposed.) Surgical history: Reports: cholecystectomy, other (Multiple procedures on the legs to treat the chronic wounds.) Psychiatric history: Reports: other - Social History Smoking Status: Never smoker Smokeless Tobacco Status: No Alcohol use: Reports: none Drug use: Reports: none Physical Exam - General Limitations: no limitations General appearance: alert - Head Head exam: atraumatic, normocephalic - ENT ENT exam: mucous membranes dry - Neck Neck exam: Present: full ROM - Chest Chest inspection: Present: normal inspection, symmetric chest wall rise. Absent : tenderness - Respiratory Respiratory exam: Present: normal lung sounds bilaterally. Absent: respiratory distress, wheezes - Cardiovascular Cardiovascular exam: Present: regular rate, normal rhythm, normal heart sounds - Abdominal Exam Abdominal exam: Present: soft, Non-Tender - Extremities Exam Extremities exam: Present: other (Extremities are wrapped in Chucky wraps overlying gauze. The bed is soaked with the weeping from these legs. We removed the Chucky wrap sent found the gauze underneath to be adhered to the deep wounds. We had to pull the gauze off to get a look at the wounds. There is some area of eschar on the lateral aspect of the left leg, but otherwise the wounds are red and very vascular.) - Skin Skin exam: Present: warm, dry Course Course Narrative: Patient with known history of Prader-Willi. He has known chronic wounds to his legs. I admitted him last week for sepsis and hypotension. He was transferred from this facility to another facility to manage the wounds because the surgeons a consult a concern that they could not handle the wounds here. For some reason the patient was discharged from the facility he was transferred to. He refuses to go back to that facility at this point. His legs look bad and I do not think he can be treated at home because now the wound treatments have become so painful. He also was dramatically switched from IV antibiotics to by mouth antibiotics for what sounds like a significant infection in the legs. I cannot send him back where he was. He needs to be admitted because I do not feel it safe for him to go home. I discussed the case with the hospitalist on- call who was concerned about our ability to give the patient what he needs here but given the fact that the patient refuses to go elsewhere there is nothing that we can do. I had a long conversation with the patient and family about the risks of staying here and our inability to manage the depth of his condition. They have accepted that risk under the assumption that we can do some dressing changes and antibiotics on the patient while we are trying to find a different facility that can manage this patient's issue fully and chronically. I called the hospitalist back and he has accepted the patient for admission given that condition. Vital Signs Temperature 97.8 F 05/22/16 20:58 Pulse Rate 98 05/22/16 20:58 Respiratory Rate 20 05/22/16 20:58 Blood Pressure 159/109 05/22/16 20:58 O2 Sat by Pulse Oximetry 100 05/22/16 20:58 Temperature 97.8 F 05/22/16 20:58 Pulse Rate 101 05/22/16 23:53 Respiratory Rate 16 05/22/16 23:53 Blood Pressure 128/79 05/22/16 23:53 O2 Sat by Pulse Oximetry 96 05/22/16 23:53 Oxygen Delivery Oxygen Delivery Room Air Medical Decision Making - Lab Data Lab results reviewed: Yes I reviewed the patient's lab results. Result diagrams: 05/22/16 22:03 05/22/16 22:03 Lab Results 05/22/16 05/22/16 05/22/16 Range/Units 22:03 22:03 22:03 WBC 22.9 H D (4.3-11.1) K/mcL RBC 3.79 L (4.19-5.50) M/mcL Hgb 8.7 L (12.9-16.9) g/dL Hct 30.5 L (37.5-50.1) % MCV 80.5 L (83.0-100.0) fL MCH 23.0 L (28.0-33.3) pg MCHC 28.5 L (31.6-35.5) g/dL RDW 17.1 H (11.5-14.5) % Plt Count 398 D (140-400) K/mcL MPV 9.8 (9.4-12.4) fL Immature Gran % 2.2 (0-4) % Seg Neutrophils % 75.5 % Lymphocytes % 8.0 % Monocytes % 9.6 % Eosinophils % 4.5 % Basophils % 0.2 % Neutrophils # 17.3 H (1.6-8.9) K/mcL Lymphocytes # 1.8 (0.6-4.6) K/mcL Monocytes # 2.2 H (0.0-1.3) K/mcL Eosinophils # 1.0 H (0.0-0.6) K/mcL Basophils # 0.1 (0.0-0.2) K/mcL Nucleated RBCs/100 WBC 0.1 H (0) /100 WBC Platelet Estimate Normal (Normal) Hypochromasia Present A (Not Present) Poikilocytosis 1+ A (Not Present) Anisocytosis 1+ A (Not Present) PT 12.1 (9.4-12.1) Seconds INR 1.1 APTT 27.5 (26.0-36.0) Seconds Sodium 139 (136-145) mEq/L Potassium 4.5 (3.5-4.5) mEq/L Chloride 102 (98-109) mEq/L Carbon Dioxide 31 H (19-29) mEq/L BUN 14 (8-26) mg/dL Creatinine 0.76 (0.72-1.25) mg/dL Est GFR ( Amer) > 60 (> 60) Est GFR (Non-Af Amer) > 60 (> 60) BUN/Creatinine Ratio 18 (6-26) Glucose 102 H (70-99) mg/dL Calculated Osmolality 289 (280-300) Lactic Acid (0.5-2.2) mmol/L Calcium 8.0 L (8.6-10.8) mg/dL Phosphorus 2.5 (2.3-4.7) mg/dL Magnesium 1.6 (1.6-2.6) mg/dL Total Bilirubin 0.4 (0.2-1.2) mg/dL Direct Bilirubin 0.2 (0.0-0.5) mg/dL Indirect Bilirubin 0.2 (0.0-1.2) mg/dL AST 27 (5-34) Units/L ALT 41 (0-55) Units/L Alkaline Phosphatase 107 (38-126) Units/L Troponin I (0-0.03) ng/mL B-Natriuretic Peptide (0-100) pg/mL Serum Total Protein 5.5 L (6.0-8.3) g/dL Albumin 2.4 L (3.5-5.0) g/dL Globulin 3.1 (2.4-3.5) g/dL Albumin/Globulin Ratio 0.8 L (1.1-2.2) 05/22/16 05/22/16 05/22/16 Range/Units 22:03 22:03 22:03 WBC (4.3-11.1) K/mcL RBC (4.19-5.50) M/mcL Hgb (12.9-16.9) g/dL Hct (37.5-50.1) % MCV (83.0-100.0) fL MCH (28.0-33.3) pg MCHC (31.6-35.5) g/dL RDW (11.5-14.5) % Plt Count (140-400) K/mcL MPV (9.4-12.4) fL Immature Gran % (0-4) % Seg Neutrophils % % Lymphocytes % % Monocytes % % Eosinophils % % Basophils % % Neutrophils # (1.6-8.9) K/mcL Lymphocytes # (0.6-4.6) K/mcL Monocytes # (0.0-1.3) K/mcL Eosinophils # (0.0-0.6) K/mcL Basophils # (0.0-0.2) K/mcL Nucleated RBCs/100 WBC (0) /100 WBC Platelet Estimate (Normal) Hypochromasia (Not Present) Poikilocytosis (Not Present) Anisocytosis (Not Present) PT (9.4-12.1) Seconds INR APTT (26.0-36.0) Seconds Sodium (136-145) mEq/L Potassium (3.5-4.5) mEq/L Chloride (98-109) mEq/L Carbon Dioxide (19-29) mEq/L BUN (8-26) mg/dL Creatinine (0.72-1.25) mg/dL Est GFR ( Amer) (> 60) Est GFR (Non-Af Amer) (> 60) BUN/Creatinine Ratio (6-26) Glucose (70-99) mg/dL Calculated Osmolality (280-300) Lactic Acid 1.4 (0.5-2.2) mmol/L Calcium (8.6-10.8) mg/dL Phosphorus (2.3-4.7) mg/dL Magnesium (1.6-2.6) mg/dL Total Bilirubin (0.2-1.2) mg/dL Direct Bilirubin (0.0-0.5) mg/dL Indirect Bilirubin (0.0-1.2) mg/dL AST (5-34) Units/L ALT (0-55) Units/L Alkaline Phosphatase (38-126) Units/L Troponin I 0.01 (0-0.03) ng/mL B-Natriuretic Peptide 112 H (0-100) pg/mL Serum Total Protein (6.0-8.3) g/dL Albumin (3.5-5.0) g/dL Globulin (2.4-3.5) g/dL Albumin/Globulin Ratio (1.1-2.2) - Radiology Data Radiology results reviewed: Yes I reviewed the patient's radiology results.
[2016-05-23] MEDS ORDERED: Albuterol 2.5 MG/3 ML NEBULIZER IH PRN (03:09)
[2016-05-23] MEDS ORDERED: Pantoprazole 40 MG VIAL IVP STA (03:09)
[2016-05-23] MEDS ORDERED: Naloxone 0.4 MG/ML INJ IVP PRN (03:09)
[2016-05-23] MEDS ORDERED: *HR* Morphine 2 MG/ML SYRINGE IVP PRN (03:09)
[2016-05-23] MEDS ORDERED: *HR* OxyCODONE Immed Rel 5 MG TABLET PO PRN (03:09)
[2016-05-23] MEDS ORDERED: Ondansetron 4 MG/2 ML VIAL IVP PRN (03:09)
--- NOTE | 2016-05-23 03:22 | Internal Med History&Physical ---
Date of Encounter: 05/23/16 Time of Encounter: 02:30 Assessment and Plan (1) Sepsis Status: Acute . Qualifiers: Sepsis type: sepsis due to unspecified organism Qualified Code(s): A41.9 - Sepsis, unspecified organism (2) Sepsis affecting skin Status: Acute . (3) SIRS due to infectious process with acute organ dysfunction Status: Acute . (4) Acute respiratory failure with hypoxia Status: Acute . (5) HCAP (healthcare-associated pneumonia) Status: Acute . (6) Infected stasis ulcer of left lower extremity Status: Acute . (7) Infected stasis ulcer of right lower extremity Status: Acute . (8) Bilateral lower leg cellulitis Status: Chronic . (9) Prader-Willi syndrome Status: Chronic . (10) Osteomyelitis of left lower extremity Status: Acute . (11) Osteomyelitis of right lower extremity Status: Acute . (12) Iron deficiency anemia due to chronic blood loss Status: Chronic . (13) Malabsorption of iron Status: Chronic . (14) Wound, open, lower limb with complication Status: Chronic . Qualifiers: Encounter type: subsequent encounter Laterality: unspecified laterality Qualified Code(s): S81.809D - Unspecified open wound, unspecified lower leg, subsequent encounter (15) Chronic anemia Status: Chronic . (16) Morbid obesity with BMI of 50.0-59.9, adult Status: Chronic . (17) Morbid obesity with alveolar hypoventilation Status: Chronic . (18) At risk for accident in home Status: Acute . (19) At risk for acid-base imbalance Status: Acute . (20) At risk for activity intolerance Status: Acute . (21) At risk for acute confusion Status: Acute . (22) Protein-calorie malnutrition, moderate Status: Chronic . (23) Debility, unspecified Status: Chronic . Internal Medicine - H&P: HPI Chief complaint: Difficulty breathing Admitted From: Emergency Dept Plans for Post Hospital Care: Home History of present illness: Mr. Junior is a 46 year old male with Prader-Willi syndrome/MRDD/behavioral disturbances, bilateral lower extremity venostasis ulcerations, chronic dependent LE edema/?lymphedema, chronic anemia (IV iron and RBC transfusion dependent), iron deficiency/malabsorption, diastolic CHF/LVEF 60%, ?OHS?JOHN, GERD, morbid obesity w/severe deconditioning, nonsmoker. The patient was visited and interviewed and examined. Patient is admitted to [facility] via the emergency department when he presents EMS from home with accompanying family reports of progressive difficulty in breathing and deterioration of chronic lower extremity wounds. Patient had recently been admitted to [facility] May 17 with reports of persistent nausea vomiting and dehydration. He was found to have evidence of community-acquired pneumonia and severe sepsis. Pneumonia was felt possibly secondary to chronic gastroesophageal reflux and GERD induced to aspiration. The patient later developed septic shock requiring intensive care unit placement and intravenous vasopressors along with the vigorous fluid rehydration and electrolyte repletion and broad-spectrum antibody coverage. He was noted during that time to have chronic bilateral lower extremity cellulitis with venous stasis ulcerations which are nonhealing. Suspicion was that these for chronically infected studies which included CT and MRI of the lower extremities were performed. Suggestion was given that the lesions demonstrated possible underlying chronic osteomyelitis due to chronic reaction to venous stasis ulcerations. With improvement in patient's most urgent needs he was ultimately transferred to high level of care to address his lower extremity wounds and final disposition for this. This was felt to be the best recourse this patient as suggested by his consulting staff in orthopedic surgery and Gen. surgery as well as wound care. At the time the patient's family specifically patient's sister who served as his caregiver and legal power of sagger maker was in agreement with this transfer. The patient was accepted to [facility] for continuity of care in the inpatient setting. The only surgery the patient underwent the initiation of medical cares and evaluations for bilateral lower leg infection and possible osteomyelitis. Broad-spectrum antibiotic coverage included vancomycin and Zosyn and topical wound care measures. At the time of his arrival at [facility] the initial hypoxic respiratory failure secondary to medical record pneumonia was felt to be improved with x-ray per report showing no definitive infiltration. Electrolyte derangements for hyperkalemia and hypophosphatemia responded to repletion but were likely felt secondary to poor oral intake part of the patient patient's initial a significant symptomatic anemia treated with blood transfusions prior to transfer remained stable without evidence for acute blood loss. In the hospital setting however the patient and family members became frustrated with their perception of the care administered and the patient ultimately was discharged home the morning of May 22. He subsequently presented to [facility] once again for admission and continuity of care. The home setting he began to experience increasing degrees of difficulty breathing transported by EMS services to [facility] emergency department for evaluation. In addition to shortness of breath patient and family reported increasing problems with lower extremity wounds weeping in spite of apply dressings. Patient has not been able to use his legs consequently. Reports tenderness about of pain. Since discomfort as a 8/10 sharp constant discomfort. Aggravated with movement or palpation. There has not been any complaints of fevers chills or sweats. No shortness of breath has been accompanied by dyspnea with activity and also wheezing. He denies a cough. History is noteworthy for the session the patient has to pick the skin off the distal lower third of both lower legs. It has been a consequence of this that the muscle and deep tissues have been exposed and nonhealing. Findings in the ED: Temperature 97.8 pulse 98-101 respiration 16-20 BP 128-159/ 79-109. O2 saturation 96-100% room air. WBC 22.9 hemoglobin 8.7 hematocrit 30.5. MCV 80.5 MCH 23 MCHC 28.5. RDW 17.1. Platelets 398,000. Differential shows increase in neutrophils and monocytes eosinophils. PT 12.1 INR 1.1 PTT 27.5. Metabolic panel normal except carbon dioxide 31. Glucose 102. BUN 14 creatinine 0.76. Osmolality 289. Calcium 8. Albumin 2.4 total 5.5. Hepatic function normal. Lactic acid 1.4. Troponin 0.01 BNP 112. Chest x-ray demonstrates interstitial perihilar opacities compatible with pulmonary vascular redistribution. Interstitial pulmonary edema. No pneumothorax effusion or focal infiltrate. Mild cardiomegaly. Preliminary impression suggests systemic inflammatory response syndrome/sepsis present on admission in patient with evidence of combined isources of infection. Present at admission acute on chronic, persistent lower extremity cellulitis and venostasis ulcerations in the setting of chronic smoldering osteomyelitis due to chronic reaction to venostasis ulcerations.. This is complicated by acute on chronic hypoxic respiratory failure in a patient with recent hospitalization for community-acquired pneumonia and severe sepsis secondary to chronic GERD and GERD-induced aspiration. His acute worsening of symptoms and return to [facility] after discharge from [facility] was worrisome for complicated healthcare associated pneumonia and recurrent sepsis. He still presents a picture of worrisome for chronic recurrent silent aspiration due to his body habitus is GERD and likely underlying impaired respiratory dynamics ( JOHN/OHS). However studies we will proceed to rule out ACS/UA/PE/DVT. Screening studies due once again not defined no significant anemia with associated iron deficiency. Laboratory findings a normal troponin but a slight increase in BNP with chest x-ray suggesting interstitial pulmonary edema (vs interstitial pneumonitis). Assessment of cardiopulmonary status will be pursued. The patient presents at further risk for acute clinical decline and morbidity given this presenting chief complaints, clinical findings, frailty and comorbid conditions. Workup and treatment will progress comprehensively.. Cumulative laboratory and radiographic data base was reviewed, considered and discussed. Pertinent ancillary medical records including ECW and PCI documentation was reviewed and considered. Given the patient's presenting concerns, past medical history, clinical findings and symptoms, he is admitted at this time will undergo further evaluation and disposition. Orders were written as per the computerized physician border measurer and cutter system.......................................................................... .................... Consultative opinions will be sought as clinical circumstances justify. Wound care consultation submitted. Pain management needs will be addressed. Laboratory and radiographic data base will be updated as appropriate. Studies include: Cultures blood urine and sputum, PT/INR/APTT, Ddimer, cardiac injury panel, BNP, CPK, metabolic and hematologic panel, magnesium, phosphorus, ionized calcium, thyroid panel, lipid profile, A1c, C-peptide, CRP, sed rate, procalcitonin respiratory infection profile, respiratory virus panel, UA, blood gas, lactic acid, serologies, etc. Precautions: Aspiration, fall, delirium protocol/surveillance initiated. Telemetry with continuous hemodynamic monitoring and pulse oximetry initiated. OrthoStatic vital signs. Empiric antibody coverage: Intravenous vancomycin,, meropenem , Levaquin pending culture data. Oral Culturelle therapy initiated. Special studies: CT/CTA chest, chest x-ray, telemetry, EKG, echocardiogram. Pulmonary toilet: Incentive spirometry, aerosol bronchodilator, mucolytic, antitussive, supplemental oxygen. Corticosteroid therapy. CPAP/BiPAP supplemental oxygen delivery. Aerosol Mucomyst therapy. Fluid and electrolyte repletion efforts will proceed. Careful attention to fluid balance and renal recovery will be emphasized. Avoidance of nephrotoxic exposure and adverse drug drug interaction in the setting of impaired renal function will be monitored closely. Acute coronary syndrome protocol/surveillance initiated. Acute heart failure protocol/surveillance initiated. 5350-1181 mL total fluid restriction per 24 hours. Low sodium diet restriction/cardiac diet. DVT and PUD prophylaxis initiated: PPI therapy, intermittent pneumatic foot pumps. Subcutaneous heparin/Lovenox. Early ambulation will be encouraged. Immunization updates recommended. Influenza and pneumococcal vaccinations as part of ongoing preventative healthcare recommendations strongly recommended. Smoking cessation counseling briefly addressed. Patient is a nonsmoker. Advanced care directive discussion briefly addressed. Patient does not declare any healthcare restrictions at this time. Cardiovascular risk appraisal and cardiovascular risk reduction efforts will be emphasized. Physical and occupational therapy consulted to evaluate/assess patient's functional capacity and progress mobility as his circumstances permit. Nutrition/dietary education counseling may be considered as circumstances justify. Outpatient medication schedules will be reviewed, confirmed and facilitated as appropriate. Reconciliation of home treatments including adjustments, substitutions and reintroduction into the treatment regimen will address necessary maintenance therapies for chronic pre-existing medical conditions. Plan of care has been reviewed and discussed in detail with the patient and family. Questions addressed. Hospital course will be dependent upon clinical findings, treatment response and potential consultative interventions. Patient is at risk for further acute clinical decline and morbidity due to his presenting chief complaints, findings and comorbid conditions. Condition is serious. Prognosis is guarded. CODE STATUS is full. Past Med Surg Social Fam HX - Past Medical History Source: old records reviewed Medical history: CHF, dementia (Prader-Willi syndrome with MRDD and behavioral disturbances.), GERD, GI bleed, myocardial infarction (H/O demand ischemia type II Non-ST elevation [place]), venous stasis, other (Chronic anemia. Iron deficiency. ) Psychiatric history: no psych history, other - Past Surgical History Surgical History: cholecystectomy, other - Social History Smoking Status: Never smoker Smokeless Tobacco Status: No Alcohol use: none Drug use: none Occupational status: disabled Current living situation: With Family Activity Level: Independent ambulation, Mostly sedentary Recent Out of Country Travel Within the Last 8 Weeks: No Exposure or Possible Exposure to Illness During Travel: No - Family History Father Living Status: Still Living Hx Family Cardiac Disorders: Yes (htn) Hx Family Cancer: Yes (thyroid ca) Mother Living Status: Hx Family Cardiac Disorders: Yes (chf) Hx Family Respiratory Disorders: Yes (pneumonia) Hx Family Endocrine Disorder: Yes (diabetic) Internal Medicine - H&P: Meds Multivitamin [Multi-Day Vitamins] 1 each PO DAILY 01/07/16 [History] Pentoxifylline [TRENtal] 400 mg PO BID 01/07/16 [History] Ascorbic Acid [Vitamin C] 500 mg PO DAILY #30 tablet 01/09/16 [Rx] Folic Acid 0.4 mg PO DAILY #30 tablet 01/09/16 [Rx] Ferrous Gluconate 324 mg PO BID #60 tablet 02/15/16 [Rx] Collagenase Oint [Santyl] 1 appl TP BID 05/23/16 [History] Gentamicin Oint [Garamycin] 1 appl TP BID 05/23/16 [History] Vancomycin HCl in Dextrose 5 % [Vancomycin 1 Gram/250 ml-D5w] 1 gm IV Q12HR 14 Days 05/31/16 [Rx] Acetaminophen [Tylenol] 650 mg PO Q6HR PRN #0 tablet 06/01/16 [Rx] Cefepime HCl/D5w [Cefepime-Dextrose 2 gm/50 ml] 2 gm IV BID 14 Days 06/01/16 [Rx ] Docusate [Colace] 100 mg PO BID PRN #0 capsule 06/01/16 [Rx] Famotidine [Pepcid] 20 mg PO BID tablet 06/01/16 [Rx] Furosemide [Lasix] 20 mg PO BIDDIURETIC #60 tablet 06/01/16 [Rx] Gentamicin Oint [Garamycin] 1 appl TP DAILY #1 tube 06/01/16 [Rx] Lactobacillus [Culturelle] 1 each PO BID cap.sprink 06/01/16 [Rx] Petrolatum, white [Vaseline] 1 appl TP BID oint.pack 06/01/16 [Rx] Potassium Chloride 20 meq PO DAILY #30 tab.er.prt 06/01/16 [Rx] Zinc Sulfate 220 mg PO DAILY capsule 06/01/16 [Rx] Albuterol Sulfate [Albuterol Inhaler] 2 puff IH Q4HR #1 hfa.aer.ad 06/02/16 [Rx] Allergies cephalexin [From Keflex] Allergy (Verified 03/14/16 16:16) See Comments Pt unsure of reaction. chlorpromazine [From Thorazine] Allergy (Verified 03/14/16 16:16) See Comments [place] Allergy (Verified 05/29/16 17:34) See Comments [place] Allergy (Uncoded 05/29/16 17:34) See Comments ROS unobtainable: due to mental status All Systems PM: A 10-system review of systems was performed and is negative for pertinent findings except as documented above in the HPI. - Constitutional Constitutional: as per HPI - EENT Eyes: as per HPI Ears: as per HPI Nose, mouth and throat: as per HPI - Cardiovascular Cardiovascular ROS IM: as per HPI - Respiratory Respiratory: as per HPI - Gastrointestinal Gastrointestinal: as per HPI - Genitourinary Genitourinary ROS male: as per HPI - Musculoskeletal Musculoskeletal ROS IM: as per HPI - Integumentary Integumentary IM: as per HPI - Neurological Neurological ROS: as per HPI - Psychiatric Psychiatric: as per HPI - Endocrine Endocrine IM: as per HPI - Hematologic/Lymphatic Hematologic/Lymphatic: as per HPI - Allergic/Immunologic Allergic/Immunologic: as per HPI - Constitutional Vitals: Temp Pulse Resp BP Pulse Ox 100.6 F H 104 22 91/63 92 L 05/23/16 02:07 05/23/16 02:07 05/23/16 02:07 05/23/16 02:07 05/23/16 02:07 General appearance: Present: mild distress, A&O X 3, morbidly obese. Absent: cooperative, answers questions appropriately - Head Head exam: Present: atraumatic, normocephalic - Eye Eye exam: Present: EOMI, PERRL, conjuntiva pink, sclera anicteric Pupils: Present: normal accommodation, PERRL - ENT ENT exam: Present: mucous membranes moist, normal external ear exam, normal oropharynx - Neck Neck exam general surgery: Present: supple, trachea midline. Absent: lymphadenopathy - Respiratory Respiratory exam: Present: accessory muscle use, chest wall tenderness, decreased breath sounds, rhonchi, wheezes. Absent: rales - Cardiovascular Cardiovascular exam: Present: distant heart sounds, RRR, +S1, +S2. Absent: diastolic murmur, gallop, rubs, systolic murmur - GI/Abdominal GI/Abdominal exam: Present: normal bowel sounds, soft, no peritoneal signs. Absent: distended, tenderness - Extremities Exam Extremities exam: Present: full ROM, tenderness, warm, radial pulses palpable and symetrical. Absent: calf tenderness, cyanotic, pedal edema - Neurological Exam Neurological exam: Present: alert, altered, CN II-XII intact, motor sensory deficit, oriented X3. Absent: strengths equal and symetr throughout, pronater drift, facial droop, speech deficit - Psychiatric Psychiatric exam: Present: anxious, flat affect - Skin Skin exam: Present: abrasion, dry, erythema, excoriation, intact, warm. Absent : petechiae, rash, urticaria, vesicles - Expanded Skin Exam Distribution of rash: Present: generalized, RLE, LLE Description of rash: Present: erythematous, swelling, tenderness Internal Med - H&P Results - Labs CBC & Chem 7: 06/02/16 04:03 06/02/16 02:18 - Impressions Vital Signs Temp Pulse Resp BP Pulse Ox 05/23/16 02:07 100.6 F H 104 22 91/63 92 L 05/23/16 00:59 16 110/75 05/23/16 00:48 109 18 94 L 05/22/16 23:53 101 16 128/79 96 05/22/16 20:58 97.8 F 98 20 159/109 100 Intake and Output 05/22/16 05/22/16 05/23/16 15:59 23:59 07:59 Other: Weight 95.254 kg 91 kg Patient Weight 05/23/16 23:59 Weight 91 kg Short CBC 05/22/16 Range/Units 22:03 WBC 22.9 H D (4.3-11.1) K/mcL Hgb 8.7 L (12.9-16.9) g/dL Hct 30.5 L (37.5-50.1) % Plt Count 398 D (140-400) K/mcL Neutrophils # 17.3 H (1.6-8.9) K/mcL BMP 05/22/16 Range/Units 22:03 Sodium 139 (136-145) mEq/L Potassium 4.5 (3.5-4.5) mEq/L Chloride 102 (98-109) mEq/L Carbon Dioxide 31 H (19-29) mEq/L BUN 14 (8-26) mg/dL Creatinine 0.76 (0.72-1.25) mg/dL Glucose 102 H (70-99) mg/dL Calcium 8.0 L (8.6-10.8) mg/dL Cardiac Enzymes 05/22/16 Range/Units 22:03 Troponin I 0.01 (0-0.03) ng/mL Liver Function 05/22/16 Range/Units 22:03 Total Bilirubin 0.4 (0.2-1.2) mg/dL Direct Bilirubin 0.2 (0.0-0.5) mg/dL AST 27 (5-34) Units/L ALT 41 (0-55) Units/L Alkaline Phosphatase 107 (38-126) Units/L Albumin 2.4 L (3.5-5.0) g/dL Abnormal lab results WBC 22.9 K/mcL (4.3-11.1) H D 05/22/16 22:03 RBC 3.79 M/mcL (4.19-5.50) L 05/22/16 22:03 Hgb 8.7 g/dL (12.9-16.9) L 05/22/16 22:03 Hct 30.5 % (37.5-50.1) L 05/22/16 22:03 MCV 80.5 fL (83.0-100.0) L 05/22/16 22:03 MCH 23.0 pg (28.0-33.3) L 05/22/16 22:03 MCHC 28.5 g/dL (31.6-35.5) L 05/22/16 22:03 RDW 17.1 % (11.5-14.5) H 05/22/16 22:03 Neutrophils # 17.3 K/mcL (1.6-8.9) H 05/22/16 22:03 Monocytes # 2.2 K/mcL (0.0-1.3) H 05/22/16 22:03 Eosinophils # 1.0 K/mcL (0.0-0.6) H 05/22/16 22:03 Nucleated RBCs/100 WBC 0.1 /100 WBC (0) H 05/22/16 22:03 Hypochromasia Present (Not Present) A 05/22/16 22:03 Poikilocytosis 1+ (Not Present) A 05/22/16 22:03 Anisocytosis 1+ (Not Present) A 05/22/16 22:03 Carbon Dioxide 31 mEq/L (19-29) H 05/22/16 22:03 Glucose 102 mg/dL (70-99) H 05/22/16 22:03 Calcium 8.0 mg/dL (8.6-10.8) L 05/22/16 22:03 B-Natriuretic Peptide 112 pg/mL (0-100) H 05/22/16 22:03 Serum Total Protein 5.5 g/dL (6.0-8.3) L 05/22/16 22:03 Albumin 2.4 g/dL (3.5-5.0) L 05/22/16 22:03 Albumin/Globulin Ratio 0.8 (1.1-2.2) L 05/22/16 22:03 Allergies Allergy/AdvReac Type Severity Reaction Status Date / Time cephalexin [From Keflex] Allergy See Verified 03/14/16 16:16 Comments chlorpromazine Allergy See Verified 03/14/16 16:16 [From Thorazine] Comments Laboratory Results WBC 22.9 K/mcL (4.3-11.1) H D 05/22/16 22:03 RBC 3.79 M/mcL (4.19-5.50) L 05/22/16 22:03 Hgb 8.7 g/dL (12.9-16.9) L 05/22/16 22:03 Hct 30.5 % (37.5-50.1) L 05/22/16 22:03 MCV 80.5 fL (83.0-100.0) L 05/22/16 22:03 MCH 23.0 pg (28.0-33.3) L 05/22/16 22:03 MCHC 28.5 g/dL (31.6-35.5) L 05/22/16 22:03 RDW 17.1 % (11.5-14.5) H 05/22/16 22:03 Plt Count 398 K/mcL (140-400) D 05/22/16 22:03 MPV 9.8 fL (9.4-12.4) 05/22/16 22:03 Immature Gran % 2.2 % (0-4) 05/22/16 22:03 Seg Neutrophils % 75.5 % 05/22/16 22:03 Lymphocytes % 8.0 % 05/22/16 22:03 Monocytes % 9.6 % 05/22/16 22:03 Eosinophils % 4.5 % 05/22/16 22:03 Basophils % 0.2 % 05/22/16 22:03 Neutrophils # 17.3 K/mcL (1.6-8.9) H 05/22/16 22:03 Lymphocytes # 1.8 K/mcL (0.6-4.6) 05/22/16 22:03 Monocytes # 2.2 K/mcL (0.0-1.3) H 05/22/16 22:03 Eosinophils # 1.0 K/mcL (0.0-0.6) H 05/22/16 22:03 Basophils # 0.1 K/mcL (0.0-0.2) 05/22/16 22:03 Nucleated RBCs/100 WBC 0.1 /100 WBC (0) H 05/22/16 22:03 Platelet Estimate Normal (Normal) 05/22/16 22:03 Hypochromasia Present (Not Present) A 05/22/16 22: Poikilocytosis 1+ (Not Present) A 05/22/16 22:03 Anisocytosis 1+ (Not Present) A 05/22/16 22:03 PT 12.1 Seconds (9.4-12.1) 05/22/16 22:03 INR 1.1 05/22/16 22:03 APTT 27.5 Seconds (26.0-36.0) 05/22/16 22:03 Sodium 139 mEq/L (136-145) 05/22/16 22:03 Potassium 4.5 mEq/L (3.5-4.5) 05/22/16 22:03 Chloride 102 mEq/L (98-109) 05/22/16 22:03 Carbon Dioxide 31 mEq/L (19-29) H 05/22/16 22:03 BUN 14 mg/dL (8-26) 05/22/16 22:03 Creatinine 0.76 mg/dL (0.72-1.25) 05/22/16 22:03 Est GFR ( Amer) > 60 (> 60) 05/22/16 22:03 Est GFR (Non-Af Amer) > 60 (> 60) 05/22/16 22:03 BUN/Creatinine Ratio 18 (6-26) 05/22/16 22:03 Glucose 102 mg/dL (70-99) H 05/22/16 22:03 Calculated Osmolality 289 (280-300) 05/22/16 22:03 Lactic Acid 1.4 mmol/L (0.5-2.2) 05/22/16 22:03 Calcium 8.0 mg/dL (8.6-10.8) L 05/22/16 22:03 Phosphorus 2.5 mg/dL (2.3-4.7) 05/22/16 22:03 Magnesium 1.6 mg/dL (1.6-2.6) 05/22/16 22:03 Total Bilirubin 0.4 mg/dL (0.2-1.2) 05/22/16 22:03 Direct Bilirubin 0.2 mg/dL (0.0-0.5) 05/22/16 22:03 Indirect Bilirubin 0.2 mg/dL (0.0-1.2) 05/22/16 22:03 AST 27 Units/L (5-34) 05/22/16 22:03 ALT 41 Units/L (0-55) 05/22/16 22:03 Alkaline Phosphatase 107 Units/L (38-126) 05/22/16 22:03 Troponin I 0.01 ng/mL (0-0.03) 05/22/16 22:03 B-Natriuretic Peptide 112 pg/mL (0-100) H 05/22/16 22:03 Serum Total Protein 5.5 g/dL (6.0-8.3) L 05/22/16 22:03 Albumin 2.4 g/dL (3.5-5.0) L 05/22/16 22:03 Globulin 3.1 g/dL (2.4-3.5) 05/22/16 22:03 Albumin/Globulin Ratio 0.8 (1.1-2.2) L 05/22/16 22:03 Impressions Chest X-Ray 05/22/16 21:35 IMPRESSION: Interstitial pulmonary edema. D/ / 05/22/2016 22:33:30 Jeb Loyola MD / gypsy Interpreting Provider: Jeb Loyola MD ................................................................................ ................................................................................ .................................................... Allergies cephalexin [From Keflex] Allergy (Verified 03/14/16 16:16) See Comments Pt unsure of reaction. chlorpromazine [From Thorazine] Allergy (Verified 03/14/16 16:16) See Comments Home Medications Medication Instructions Recorded Confirmed Type Multivitamin [Multi-Day Vitamins] 1 each PO DAILY 01/07/16 05/23/16 History Pentoxifylline [TRENtal] 400 mg PO BID 01/07/16 05/23/16 History Furosemide [Lasix] 20 mg PO DAILY 02/02/16 05/23/16 History Collagenase Oint [Santyl] 1 appl TP BID 05/23/16 05/23/16 History Gentamicin Oint [Garamycin] TP BID 05/23/16 History I & O 05/20/16 05/21/16 05/22/16 05/23/16 23:59 23:59 23:59 23:59 Weight 95.254 kg 91 kg Medications Acetaminophen (Tylenol) 650 mg PO Q6HR PRN PRN Reason: Mild Pain (1-3) Stop: 11/22/16 03:10 Albuterol Sulfate (Proventil Neb) 2.5 mg IH Q2H PRN PRN Reason: Shortness Of Breath/Wheezing Stop: 11/22/16 03:10 Albuterol/Ipratropium (Duoneb) 3 ml IH QIDR [place] Stop: 11/22/16 05:01 Ascorbic Acid (Vitamin C) 500 mg PO DAILY [facility] Stop: 11/22/16 09:01 Docusate Sodium (Colace) 100 mg PO BID PRN PRN Reason: Constipation Stop: 11/22/16 03:10 Famotidine (Pepcid) 20 mg PO BID [facility] Stop: 11/22/16 09:01 Furosemide (Lasix) 20 mg PO DAILY [facility] Stop: 11/22/16 09:01 Gentamicin Sulfate (Garamycin) 1 appl TP DAILY [place] Stop: 11/21/16 22:16 Last Admin: 05/22/16 23:42 Dose: 1 appl Levofloxacin/Dextrose (Levaquin 750mg/150 Ml) 750 mg in 150 mls @ 100 mls/hr IVPB DAILY [place] PRN Reason: Protocol Stop: 11/22/16 09:01 Meropenem 1,000 mg/ Sodium (Chloride) 100 mls @ 200 mls/hr IVPB Q8HR [place] Stop: 11/22/16 08:01 Vancomycin HCl 1,250 mg/ (Dextrose) 250 mls @ 167 mls/hr IVPB RPHPROT [place] PRN Reason: Protocol Stop: 11/22/16 04:01 Lactobacillus Acidophilus/Rhamnosus (Culturelle) 1 each PO BID [facility] Stop: 11/22/16 09:01 Morphine Sulfate (Morphine Sulfate) 2 mg IVP Q4HR PRN PRN Reason: Severe Pain (7-10) Stop: 11/22/16 03:10 Naloxone HCl (Narcan) 0.4 mg IVP Q2MIN PRN PRN Reason: Opioid Reversal Stop: 11/22/16 03:10 Non-Formulary Medication (Ferrous Gluconate [Ferrous Gluconate]) 324 mg PO BID [facility] Stop: 11/22/16 09:01 Non-Formulary Medication (Folic Acid [Folic Acid]) 0.4 mg PO BID [facility] Stop: 11/22/16 09:01 Non-Formulary Medication (Multivitamin [Multi-Day Vitamins]) 1 each PO DAILY [facility] Stop: 11/22/16 09:01 Ondansetron HCl (Zofran) 4 mg IVP Q8HR PRN PRN Reason: Nausea And Vomiting Stop: 11/22/16 03:10 Oxycodone HCl (Roxicodone) 5 mg PO Q6HR PRN PRN Reason: Moderate Pain (4-6) Stop: 11/22/16 03:10 Pantoprazole Sodium (Protonix) 40 mg IVP NOW STA Stop: 05/23/16 03:10 Pentoxifylline (Trental) 400 mg PO BID [place] Stop: 11/22/16 09:01 Zinc Sulfate (Zinc Sulfate) 220 mg PO DAILY [place] Stop: 11/22/16 09:01 Discontinued Medications Collagenase (Santyl) 1 appl TP DAILY ONE PRN Reason: Protocol Stop: 05/22/16 22:11 Last Admin: 05/22/16 23:42 Dose: 1 appl Nursing Notes 05/23/16 00:53 Nurse Note by Santana Kennedy Patient has prader- willi syndrome Initialized on 05/23/16 00:53 - END OF NOTE 05/22/16 23:54 Nurse Note by Santana Kennedy Patient refusing to have b/p cuff on Initialized on 05/22/16 23:54 - END OF NOTE Orders 05/22/16 21:35 IV insertion - peripheral [RC] NOW Vital Signs Assessment [RC] PROTOCOL XR chest 1V portable [XR] Stat Mode Of Transportation: Portable Reason For Exam: Weakness Exam Performed At:: [facility] Additional Notes/Special Instructions: RM30...LAB/RN 3980 Arterial Blood Gas Stat Comment: Specimen: Send someone from the department to collect Urinalysis Reflex Cult & Micro [URIN] Stat Comment: Specimen: Pre-Collection Label 05/22/16 22:03 Activated Partial Thrombo Time [COAG] Stat Comment: Specimen: Send someone from the department to collect B-Type Natriuretic Peptide Stat Comment: Specimen: Send someone from the department to collect Basic Metabolic Panel Stat Comment: Specimen: Send someone from the department to collect Complete Blood Count [HEME] Stat Comment: Specimen: Send someone from the department to collect Culture,Blood [BC] Stat Comment: Draw from CVC. JUSTIN Source: Peripheral Venipuncture Quantity: 1 Specimen: Send someone from the department to collect Specimen Description: Hepatic Panel Stat Comment: Specimen: Send someone from the department to collect Lactic Acid ([facility] Only) Stat Comment: Specimen: Send someone from the department to collect Magnesium Stat Comment: Specimen: Send someone from the department to collect Phosphorous Stat Comment: Specimen: Send someone from the department to collect Prothrombin Time INR [COAG] Stat Comment: Specimen: Send someone from the department to collect Troponin I Stat Comment: Specimen: Send someone from the department to collect 05/22/16 22:10 Collagenase Oint [Santyl] 1 appl TP DAILY ONE 05/22/16 22:11 Culture,Blood,Additional [BC] Stat Comment: JUSTIN Source: Peripheral Venipuncture Quantity: 1 Specimen: Send someone from the department to collect Specimen Description: 05/22/16 22:15 Gentamicin Oint [Garamycin] 1 appl TP DAILY 05/23/16 00:[address] Stat Comment: Reason for Visit: Osteomyelitis bilateral lower extremities, Prader-Willi syndrome, chronic w 05/23/16 03:02 Aspiration precautions [RC] .WITH MEALS BIPAP [RC] PRN BIPAP/CPAP On/Off Times [RC] PRN Falls precautions (Corey-Hutchison [RC] q12h Incentive Spirometry [RC] .6 TIMES PER HR WHILE AWAKE Intermittent pneumatic destiney [RC] .CONTINUOUS Intermit Pneumatic Compression Device: Foot Pumps 05/23/16 03:03 BIPAP/CPAP On/Off Times [RC] ONCE RT has an order or consult [RC] NOW 05/23/16 03:08 CT chest w/o contrast [CT chest wo con] [CT] Routine Mode Of Transportation: Stretcher Reason For Exam: HCAP Order Doctor: Julian Angeles Exam Performed At:: [facility] to Contrast: No 05/23/16 03:09 Cardiac monitoring [RC] .ONCE Head of bed elevation [RC] .ONCE Peripheral IV [RC] CONT Placement to Observation Routine Physician Instructions: Reason for Visit: Difficulty breathing Is VTE Prophylaxis Indicated?: Yes Vital Signs Assessment [RC] Q4H Consult to Nurse Navigator [CONS] Routine Comment: Acetaminophen [Tylenol] 650 mg PO Q6HR PRN Albuterol Neb [Proventil Neb] 2.5 mg IH Q2H PRN Docusate [Colace] 100 mg PO BID PRN Morphine [Morphine Sulfate] 2 mg IVP Q4HR PRN Naloxone [Narcan] 0.4 mg IVP Q2MIN PRN Ondansetron [Zofran] 4 mg IVP Q8HR PRN OxyCODONE Immed Rel [Roxicodone] 5 mg PO Q6HR PRN Pantoprazole [Protonix] 40 mg IVP NOW STA Resuscitation Status: Active [RES] Routine Resuscitation Status: Full Code Comment: 05/23/16 03:10 Bed rest [RC] .CONT Physician Instructions: Bed rest w/bathroom privileges [RC] .PRN Cardiac Monitoring Med/Surg [RC] .CONT Telemetry Reason: Acute Heart Failure Continuous pulse oximetry [RC] CONT Comment: Measure intake and output [RC] QSHIFT Measure weight [RC] DAILY RT has an order or consult [RC] NOW 05/23/16 03:11 Oxygen via nasal cannula Nasal Cannula 2 lpm Comment: Titrate O2 to main O2 sat greater than: 92% 05/23/16 03:13 Consult to Occupational Therapy [CONS] Routine Comment: Evaluate, develop and implement POC Consult to Physical Therapy [CONS] Routine Comment: Evaluate, develop and implement POC 05/23/16 03:15 Troponin I Q6H Specimen: Send someone from the department to collect Comment: Up with Assist Daily Physician Instructions: Comment: 05/23/16 04:00 B-Type Natriuretic Peptide AM 0400 Specimen: Send someone from the department to collect Comment: C-Peptide AM 0400 Specimen: Send someone from the department to collect Comment: C-Reactive Protein AM 0400 Specimen: Send someone from the department to collect Comment: Culture,Blood [BC] AM 0400 Quantity: 1 Specimen: Send someone from the department to collect Comment: [place] Source: Peripheral Venipuncture Specimen Description: Culture,Sputum with Gram Stain [RM] AM 0400 Specimen: Send someone from the department to collect Comment: [place] Source: Sputum Specimen Description: Erythrocyte Sedimentation Rate [HEME] AM 0400 Specimen: Send someone from the department to collect Comment: Hgb A1C AM 0400 Specimen: Send someone from the department to collect Comment: Lactic Acid ([facility] Only) AM 0400 Specimen: Send someone from the department to collect Comment: Legionella Antigen [RM] AM 0400 Specimen: Send someone from the department to collect Comment: [place] Source: Urine,Clean Catch Specimen Description: Lipid Panel AM 0400 Specimen: Send someone from the department to collect Comment: Magnesium AM 0400 Specimen: Send someone from the department to collect Comment: Phosphorous AM 0400 Specimen: Send someone from the department to collect Comment: Procalcitonin AM 0400 Specimen: Send someone from the department to collect Comment: Respiratory Infection Panel [MOLMIC] AM 0400 Specimen: Send someone from the department to collect S. Pneumoniae Antigen [RM] AM 0400 Specimen: Send someone from the department to collect Comment: [place] Source: Urine,Clean Catch Specimen Description: Thyroid Stimulating Hormone AM 0400 Specimen: Send someone from the department to collect Comment: Urinalysis reflex Microscopic [URIN] AM 0400 Specimen: Send someone from the department to collect Comment: Venous Blood Gas AM 0400 Specimen: Send someone from the department to collect Comment: Viral Culture,Respiratory [RM] AM 0400 Specimen: Send someone from the department to collect Comment: [place] Source: Nasopharyngeal Specimen Description: Vancomycin [Vancocin (wt based)] 1,250 mg D5% in Water [Dextrose 5%] 250 ml IVPB RPHPROT 05/23/16 05:00 Ipratropium/Albuterol Neb [Duoneb] 3 ml IH QIDR 05/23/16 06:00 ECG 12 lead ECG [ECG] AM 0600 Mode Of Transportation: Portable Reason For Exam: HCAP Order Doctor: Julian Angeles Exam Performed At:: [facility] 05/23/16 08:00 Meropenem [Merrem] 1,000 mg 0.9 % Sodium Chloride Mini Bag [0.9 % Sodium Chloride (Mini-Bag +)] 100 ml IVPB Q8HR 05/23/16 09:00 Consult to Wound Care [CONS] Routine Reason for Consult: Open ,ulcerative wounds of lower extremities. Please evaluate and advise. Time Notified: 03:05 Call Completed: No 750mg IV Daily Levofloxacin 750 MG/150 ML [Levaquin 750mg/150 mL] 750 mg in 150 ml IVPB DAILY Ascorbic Acid [Vitamin C] 500 mg PO DAILY Famotidine [Pepcid] 20 mg PO BID Ferrous Gluconate [Ferrous Gluconate] 324 mg PO BID How will this medication be supplied?: Pharmacy to Subsitute Folic Acid [Folic Acid] 0.4 mg PO BID How will this medication be supplied?: Pharmacy to Subsitute Furosemide [Lasix] 20 mg PO DAILY Lactobacillus [Culturelle] 1 each PO BID Multivitamin [Multi-Day Vitamins] 1 each PO DAILY How will this medication be supplied?: Pharmacy to Subsitute Pentoxifylline [TRENtal] 400 mg PO BID Zinc Sulfate 220 mg PO DAILY 05/23/16 09:15 Troponin I Q6H Specimen: Send someone from the department to collect Comment: 05/23/16 15:15 Troponin I Q6H Specimen: Send someone from the department to collect Comment: 05/23/16 Breakfast Cardiac Diet Diet Modifications: 05/24/16 03:15 Up with Assist Daily Physician Instructions: Comment: 05/25/16 03:15 Up with Assist Daily Physician Instructions: Comment: 05/26/16 03:15 Up with Assist Daily Physician Instructions: Comment: 05/27/16 03:15 Up with Assist Daily Physician Instructions: Comment: Patient Problems Acute respiratory failure with hypoxia (Acute) HCAP (healthcare-associated pneumonia) (Acute) Osteomyelitis of left lower extremity (Acute) Osteomyelitis of right lower extremity (Acute) SIRS due to infectious process with acute organ dysfunction (Acute) Sepsis (Acute) Sepsis affecting skin (Acute) Vital Signs Temp Pulse Resp BP Pulse Ox 05/23/16 02:07 100.6 F H 104 22 91/63 92 L 05/23/16 00:59 16 110/75 05/23/16 00:48 109 18 94 L 05/22/16 23:53 101 16 128/79 96 05/22/16 20:58 97.8 F 98 20 159/109 100 Laboratory Results 05/22/16 05/22/16 05/22/16 Range/Units 22:03 22:03 22:03 WBC 22.9 H D (4.3-11.1) K/mcL RBC 3.79 L (4.19-5.50) M/mcL Hgb 8.7 L (12.9-16.9) g/dL Hct 30.5 L (37.5-50.1) % MCV 80.5 L (83.0-100.0) fL MCH 23.0 L (28.0-33.3) pg MCHC 28.5 L (31.6-35.5) g/dL RDW 17.1 H (11.5-14.5) % Plt Count 398 D (140-400) K/mcL MPV 9.8 (9.4-12.4) fL Immature Gran % 2.2 (0-4) % Seg Neutrophils % 75.5 % Lymphocytes % 8.0 % Monocytes % 9.6 % Eosinophils % 4.5 % Basophils % 0.2 % Neutrophils # 17.3 H (1.6-8.9) K/mcL Lymphocytes # 1.8 (0.6-4.6) K/mcL Monocytes # 2.2 H (0.0-1.3) K/mcL Eosinophils # 1.0 H (0.0-0.6) K/mcL Basophils # 0.1 (0.0-0.2) K/mcL Nucleated RBCs/100 WBC 0.1 H (0) /100 WBC Platelet Estimate Normal (Normal) Hypochromasia Present A (Not Present) Poikilocytosis 1+ A (Not Present) Anisocytosis 1+ A (Not Present) PT 12.1 (9.4-12.1) Seconds INR 1.1 APTT 27.5 (26.0-36.0) Seconds Sodium 139 (136-145) mEq/L Potassium 4.5 (3.5-4.5) mEq/L Chloride 102 (98-109) mEq/L Carbon Dioxide 31 H (19-29) mEq/L BUN 14 (8-26) mg/dL Creatinine 0.76 (0.72-1.25) mg/dL Est GFR ( Amer) > 60 (> 60) Est GFR (Non-Af Amer) > 60 (> 60) BUN/Creatinine Ratio 18 (6-26) Glucose 102 H (70-99) mg/dL Calculated Osmolality 289 (280-300) Lactic Acid (0.5-2.2) mmol/L Calcium 8.0 L (8.6-10.8) mg/dL Phosphorus 2.5 (2.3-4.7) mg/dL Magnesium 1.6 (1.6-2.6) mg/dL Total Bilirubin 0.4 (0.2-1.2) mg/dL Direct Bilirubin 0.2 (0.0-0.5) mg/dL Indirect Bilirubin 0.2 (0.0-1.2) mg/dL AST 27 (5-34) Units/L ALT 41 (0-55) Units/L Alkaline Phosphatase 107 (38-126) Units/L Troponin I (0-0.03) ng/mL B-Natriuretic Peptide (0-100) pg/mL Serum Total Protein 5.5 L (6.0-8.3) g/dL Albumin 2.4 L (3.5-5.0) g/dL Globulin 3.1 (2.4-3.5) g/dL Albumin/Globulin Ratio 0.8 L (1.1-2.2) 05/22/16 05/22/16 05/22/16 Range/Units 22:03 22:03 22:03 WBC (4.3-11.1) K/mcL RBC (4.19-5.50) M/mcL Hgb (12.9-16.9) g/dL Hct (37.5-50.1) % MCV (83.0-100.0) fL MCH (28.0-33.3) pg MCHC (31.6-35.5) g/dL RDW (11.5-14.5) % Plt Count (140-400) K/mcL MPV (9.4-12.4) fL Immature Gran % (0-4) % Seg Neutrophils % % Lymphocytes % % Monocytes % % Eosinophils % % Basophils % % Neutrophils # (1.6-8.9) K/mcL Lymphocytes # (0.6-4.6) K/mcL Monocytes # (0.0-1.3) K/mcL Eosinophils # (0.0-0.6) K/mcL Basophils # (0.0-0.2) K/mcL Nucleated RBCs/100 WBC (0) /100 WBC Platelet Estimate (Normal) Hypochromasia (Not Present) Poikilocytosis (Not Present) Anisocytosis (Not Present) PT (9.4-12.1) Seconds INR APTT (26.0-36.0) Seconds Sodium (136-145) mEq/L Potassium (3.5-4.5) mEq/L Chloride (98-109) mEq/L Carbon Dioxide (19-29) mEq/L BUN (8-26) mg/dL Creatinine (0.72-1.25) mg/dL Est GFR ( Amer) (> 60) Est GFR (Non-Af Amer) (> 60) BUN/Creatinine Ratio (6-26) Glucose (70-99) mg/dL Calculated Osmolality (280-300) Lactic Acid 1.4 (0.5-2.2) mmol/L Calcium (8.6-10.8) mg/dL Phosphorus (2.3-4.7) mg/dL Magnesium (1.6-2.6) mg/dL Total Bilirubin (0.2-1.2) mg/dL Direct Bilirubin (0.0-0.5) mg/dL Indirect Bilirubin (0.0-1.2) mg/dL AST (5-34) Units/L ALT (0-55) Units/L Alkaline Phosphatase (38-126) Units/L Troponin I 0.01 (0-0.03) ng/mL B-Natriuretic Peptide 112 H (0-100) pg/mL Serum Total Protein (6.0-8.3) g/dL Albumin (3.5-5.0) g/dL Globulin (2.4-3.5) g/dL Albumin/Globulin Ratio (1.1-2.2) Assessments/Treatments Bedside Report Start: 05/22/16 23: 50 Freq: Status: Complete Document 05/22/16 23:00 [facility] (Rec: 05/22/16 23:50 [id number] Bedside report Bedside Report Completed Yes Nurse assuming care of patient Kraig kennedy Nurse giving bedside report Lynne MAK Critical Value Reporting Start: 05/23/16 01: 02 Freq: .PRN Status: Active Document 05/23/16 02:37 [id number] (Rec: 05/23/16 02:39 [id number]) Critical Values Reporting Test(s) and Results sepsis risk Time Results Received 02:37 Provider Notified Yes: face to face Time Provider Contacted 02:[address] Angeles Time Provider Responded 02:37 Number of Attempts to Reach Provider 1 New Orders Received No: new ER admission ED Discharge Assessment Start: 05/22/16 20: 48 Freq: Status: Complete Document 05/23/16 00:59 [facility] (Rec: 05/23/16 01:04 [facility] [id number]) ED Discharge Assessment ED Discharge Disposition Admitted ED Condition on Discharge Fair Med Rec/Patient Pharmacy Completed? Yes: per caregiver Admitted to 3NE Bed assigned 29 Transported by sound technician supervisor Transported with IV Pain Scale 7 Pain Scale Used Standard (1-10) Blood Pressure (mm Hg) 110/75 Heart rate 92 Respiratory Rate (breaths/min) 16 Oxygen Delivery Room Air Oxygen Saturation 94 Critical Care Minutes 0 ED Shortness of Breath Assessment Start: 05/22/16 20: 48 Freq: Status: Complete Document 05/22/16 21:10 OLP (Rec: 05/22/16 21:12 OLP [id number]) Shortness of Breath Sepsis Infection Criteria Present none Sepsis SIRS Criteria none Sepsis Screen No Definite Risk Symptoms/Complaint Shortness of Breath Cough Onset today Duration Constant Severity Moderate Context Recent Illness History/simular sympoms Known History Recurrent Pneumonia Improves With Nothing Worsens With Nothing Associated Symptoms Cough Wheezing Treatment Prior to Arrival None Chest Pain Intensity (out of 10) 0 Respiratory Depth Normal Effort Normal for Patient Spontaneous Non-Labored Pattern Regular Retraction Type Subcostal Throughout Breath Sounds Inspiratory Wheezing Expiratory Wheezing Cough Description Involuntary Wheezy Frequency Intermittent Level Of Consciousness Disoriented Restless Patient Behavior Appropriate Cooperative Ability to Follow Directions Good Impaired Cognition No Skin Temperature Warm Skin Moisture Moist Skin Turgor Normal Capillary Refill < 3 Seconds Fall Precautions Acute Start: 05/23/16 01: 02 Freq: Q12H Status: Active Document 05/23/16 02:00 [id number] (Rec: 05/23/16 02:02 [id number]) [facility] Fall Risk Assessment Tool Age less than60 years age (0 points) Fall History No falls within last 6 months (0 points) Elimination, Bowel, and Urine Incontinence (2 points) Medications: Includes EXPLORATION DRILLER/opiates, On 1 high fall risk drug (3 antivulsants, ant-hypertensives, points) diuretics, hypnotics, Patient Care Equipment: Any equipment None present (0 points) that tethers patient (e.g. IV infusions, chest tube, indwelling Mobility Requires assistance or supervision for transfer/ ambulation (2 points) Cognition Lack of understanding of physical/cognitive limitations (4 points) Total Fall Risk Score 11 Fall Risk Category Moderate Risk (6-13) Fall Risk Interventions Low Risk Interventions Bed in lowest position Top side rails up x 2 Secure brake on bed Use properly fitting non-skid footwear Call light and frequently needed objects within reach Encourage patients/families to call for assistance when needed Fall education including risk assessment, injury risk and routine/ Inspect environment for safety and communication risk Supervise and assist with toileting/ADLs as needed Moderate Risk Interventions Institue fall-risk tooklit ( yellow flag, yellow non-skid socks and Frequent reorientation for confused patients IV catheter insertion - peripheral Start: 05/22/16 21: 35 Freq: NOW Status: Complete Document 05/22/16 23:43 [facility] (Rec: 05/22/16 23:44 [id number] IV-Invasive Line Management Start: 05/23/16 01: 02 Freq: Q4H Status: Active Document 05/23/16 02:05 [id number] (Rec: 05/23/16 02:05 [id number]) IV/Invasive Line Assessment Left Hand Reason for Line Insertion/Rationale for Provide Access for IV Insertion Medication(s) Gauge (gauge) 22 IV Catheter Type Peripheral IV Site Observation Patent Dressing Applied Transparent Dressing Dry/Intact Line Care Saline Flush P-Locked Initial Patient Assessment Start: 05/23/16 01: 02 Freq: .ONCE Status: Active Document 05/23/16 01:41 [id number] (Rec: 05/23/16 02:00 [id number]) General Questions Date of Arrival on Unit 05/23/16 Time of Arrival on Unit 01:41 Admitted From Emergency Dept Chief Complaint nurys cellulitis to lower extremities Onset of Chief Complaint 05/03/16 History Provided By Patient Family Member Orientation To Call Light Bed Phone TV Bathroom Smoking Policy Visiting Hours Procedures ID Bracelet On Emergency Contact Name unique velasquez ( beth) Relationship to Patient guardian Emergency Contact Bands applied ID band Patient Health Portal Patient was provided information on Yes accessing patient portal Patient Requests Portal Enrollment No Reason No Portal Enrollment No Email Malnutrition Screening Tool (MST) Have You Recently Lost Weight Without No Trying Advance Directives Advance Directives Yes Advance Directives on File No Living Will No Power of Body Work Auto 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 No Guardian: Yes Guardian Name unique velasquez Guardian Guardianship on File per guardian yes Patient Rights Copy of Rights Given and Verbalizes Yes Understanding Tobacco Free [place]: Copy of AHS Yes Statement Given and Patient Verbalizes Understanding Communication Ability Primary Language Slovak Preferred Language Slovak Ability to Follow Directions Fair Able to Read No Able to Write No Communication Tools Facial Expression Hearing Ability Normal Visual Assistive Devices None Pain Assessment Do You Have Any Ongoing (Chronic) Pain No Problems Educated on Pain Scale Yes Past Medical History Medical history other 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 Surgical History cholecystectomy other Psychiatric history no psych history Smoking Status Never smoker Smokeless Tobacco Status No Alcohol use none Drug use none Occupational status employed Current living situation With Family Activity level Independent ambulation Recent Out of Country Travel Within the No Last 8 Weeks Exposure or Possible Exposure to Illness No During Travel Family History-Meaningful Use Father Living Status Still Living Hx Family Cardiac Disorders Yes: htn Hx Family Cancer Yes: thyroid ca Mother Living Status Hx Family Cardiac Disorders Yes: chf Hx Family Respiratory Disorders Yes: pneumonia Hx Family Endocrine Disorder Yes: diabetic Spiritual Needs Spiritual Referral None Psychosocial Over Age 75 and Lives Alone or Over Age No 80 Potential Need for Follow-up Care (ECF, Yes Home Health, ECT) Developmentally Disabled or History of Yes Mental Health Problems Responsible for Care of Others No Financial Concerns No Suspected Abuse or Neglect No Suicidal or Homicidal Ideation No Functional Assessment Employment Status Disabled - developmental disability Eating (Feeding) Ability Independent Bathing Ability Moderate Assistance Upper Body Dressing Ability Moderate Assistance Lower Body Dressing Ability Moderate Assistance Ambulation Ability Independent Toileting Ability Independent Bladder Continent Bowel Continent Normal Bowel Pattern Daily Date of Last Known Bowel Movement 05/22/16 Measure weight Start: 05/23/16 01: 02 Freq: Status: Active Document 05/23/16 02:12 [id number] (Rec: 05/23/16 02:13 [id number]) Height and Weight Height 1.35 m Weight 91 kg Weight Measurement Method Built in [facility] Body Mass Index (BMI) 50.19 BMI Classification Extreme Obesity Obesity Class III Patient Rounding Start: 05/22/16 20: 48 Freq: Q30M Status: Active Document 05/22/16 23:43 AC (Rec: 05/22/16 23:44 [id number] Patient Rounding Safety Call Light Within Reach Bed Position Low Bed Brake On Side Rails Up X2 Are the Floors Free From Trip Hazards? Yes Is the Room Free From Clutter? Yes Rounding Completed? Yes Patient Rounding Updated patient/family on Plan of Care Checked for Patient Positioning Patient Helped to Bathroom or Assisted with Bedpan or Urinal Patient Personal Items Placed Within Reach Checked Patient Pain Level Patient Awake Document 05/23/16 00:48 ACM (Rec: 05/23/16 00:48 [facility] [id number]) Patient Rounding Safety Call Light Within Reach Bed Position Low Fall Precautions Side Rails Up X2 Are the Floors Free From Trip Hazards? Yes Is the Room Free From Clutter? Yes Rounding Completed? Yes Patient Rounding Updated patient/family on Plan of Care Checked for Patient Positioning Patient Personal Items Placed Within Reach Checked Patient Pain Level Patient Awake Patient Verbalizes Pain/Symptoms No Improvement Patient Rounding Start: 05/23/16 01: 02 Freq: Q1H Status: Active Document 05/23/16 02:05 [id number] (Rec: 05/23/16 02:06 [id number]) Hourly Rounding Hourly Rounding Checked for Patient Positioning Patient Helped to Bathroom or Assisted with Bedpan or Urinal Patient Personal Items Placed Within Reach Checked Patient Pain Level Hourly Rounding Completed Yes Is family present? Yes Safety Call Light Within Reach Bed Position Low Bed Exit Alarm Fall Precautions Phone Within Reach Bed Brake On Side Rails Up X2 Turn and Postion Patient Position Sitting up in Bed RT Continuous Pulse Oximetry Start: 05/22/16 20: 48 Freq: Status: Complete Document 05/22/16 23:43 ACM (Rec: 05/22/16 23:44 AC [id number]) Saline lock insertion/management Start: 05/22/16 20: 48 Freq: Status: Complete Document 05/22/16 23:43 ACM (Rec: 05/22/16 23:44 ACM [id number]) IV Insertion/Site Assessment IV Attempt 1 Successful Successful Blood drawn and sent to Lab No Left Hand IV Established EDGING CATCHER No Date of Insertion 05/22/16 Time of Insertion 23:44 Reason for IV Insertion Provide Access for IV Medication(s) IV Catheter Type Peripheral IV Gauge (gauge) 20 Site Observation Patent Dressing Applied Window Dressing Patient Tolerance Tolerated Well Sepsis Screening Start: 05/23/16 01: 02 Freq: Q8H Status: Active Document 05/23/16 02:25 [id number] (Rec: 05/23/16 02:37 [id number]) Sepsis Screening Sepsis Infection Criteria Present suspected infection Sepsis SIRS Criteria RR > 20 rpm WBC > 12k or < 4k or bands > 10% HR > 90 bpm Sepsis Organ Dysfunction Criteria none Present Sepsis Screen Sepsis Risk Sepsis Action Taken provider notified Sepsis Name of Provider Notified [place] Skin Risk Assessment Scale Start: 05/23/16 01: 02 Freq: Q12H Status: Active Document 05/23/16 02:39 [id number] (Rec: 05/23/16 02:39 [id number]) Skin Risk Assessment Scale Moisture Risk Very Moist Sensory Perception Very Limited Activity Risk Bedfast Mobility Risk Very Limited Nutrition Risk Adequate Friction & Shear Risk Potential Problem Skin Risk Total Score (points) 12 System Review Start: 05/23/16 01: 02 Freq: Q8H Status: Active Document 05/23/16 02:10 [id number] (Rec: 05/23/16 02:46 [id number]) Pain Assessment Pain Present Reports No Pain Neurological Assessment Eye Opening Spontaneous Motor Obeys Commands Verbal Oriented Coma Scale Total 15 Neurologic Status Alert Patient Orientation Person Place Time Arousable To Name Speech Pattern Coherent Excessive Patient Behavior Appropriate Cooperative Resistive to Care Mood Description Calm Apprehensive Obstetrics Scrub Nurse Strength Equal Push/Pull Equal Numbness/Tingling No Facial Symmetry Symmetrical Neurological Comment: patient ao x3 moments of cooperation and at times moments of uncooperative and upset. patient has abhishek willi syndrome Cardiovascular Assessment Signs and Symptoms None Heart Sounds S1 & S2 Pulse Rhythm Regular Jugular Vein Distention None Capillary Refill < 3 Seconds Right Radial 2+ Left Radial 2+ Right Dorsalis Pedis 1+ Left Dorsalis Pedis 1+ Bilateral Leg Type Pitting Degree 2+ Has Confirmed Diagnosis of DVT, PE or No VTE Mechanical Prophylaxis No Respiratory Assessment Respiratory Symptoms None Effort Normal for Patient Spontaneous Non-Labored Depth Normal Respiratory Pattern Regular Chest Shape Normal Expansion Symmetrical All Lung Castañeda Clear Diminished Oxygen Delivery Method Room Air Cough Description None Sputum Amount None Gastrointestinal Assessment Abdomen Description Soft Non-Tender Round 3 or more loose stools, in less than 24 No hours Nausea/Vomiting Presence None All Four Quadrants Active Flatus Presence Absent Genitourinary Assessment Voiding Method Brief Incontinent Bladder Distention None Suprapubic Tenderness with Palpation No Comment: patient's attends wet on arrival to floor, changed and new attends applied. This RN did not witness. Integumentary Assessment Nail Bed Appearance [place] Temperature Warm Moisture Dry Turgor Normal Color Normal All Pressure Points Assessed No Evidence of Incision/Wounds/Breakdown Yes Mucous membranes moist, pink and intact Yes Oral Cavity Normal Integumentary Comment: patient refusing to have this RN look at lower leg wounds at this time. groin excoriated. will attempt to look at wounds again. Musculoskeletal Assessment Musculoskeletal Symptoms Generalized Weakness Teaching Record Start: 05/23/16 01: 02 Freq: Q12H Status: Active Document 05/23/16 02:05 [id number] (Rec: 05/23/16 02:05 [id number]) Teaching Record: General Education Topics Medications Hospital Environment Response Verbalize understanding Recipient Primary Caregiver Thrombosis Risk Factor Assessment Start: 05/23/16 01: 02 Freq: .ONCE Status: Active Document 05/23/16 02:11 [id number] (Rec: 05/23/16 02:11 [id number]) Thrombosis Risk Factor Assessment Each Factor Represents 1 point Age 41 - 59 years Swollen legs (current Obesity (BMI > 25) Total Risk Factor Score 3 Risk Level Higher Risk Triage Start: 05/22/16 20: 48 Freq: Status: Complete Document 05/22/16 20:58 CRB (Rec: 05/22/16 21:01 CRB [id number]) Triage Chief Complaint triage ED Shortness of Breath/Dyspnea Patient Stated Complaint enedelia CORBY 2 General Appearance alert in no apparent distress Mode of arrival EMS Source patient EMS Limitations no limitations Ebola Risk: Travel/Contact With Anyone No From Affected Area/s Temperature (97.6 F-99.6 F) 97.8 F Temperature Source Oral Pulse Rate (beats/min) 98 Respiratory Rate (breaths/min) 20 Blood Pressure (mm Hg) 159/109 O2 Sat by Pulse Oximetry (95-100 %) 100 Oxygen Delivery Nasal Cannula Height 1.32 m Weight 95.254 kg Weight Measurement Method Estimated by Patient Pain Scale 0 Pain Scale Used Standard (1-10) Medical history other Additional surgical history PMH bmt tonsil left wrist orif (child( Psychiatric history other Smoking Status Never smoker Smokeless Tobacco Status No Alcohol Use none Drug Use none Patient resides with/at Parent/s Safety Concerns Feels Safe At This Time Do you currently feel hopless, have No thoughts of self harm, or thoughts of harming others History of fall in last 14 days? No Mother Family Member Living Status Hx Family Cardiac Disorders Yes Vital Signs Assessment Start: 05/22/16 21: 35 Freq: PROTOCOL Status: Active Document 05/22/16 23:53 ACM (Rec: 05/22/16 23:54 ACM [id number]) ED Vital Signs Pain Reported Pain Reported Pain Scale 8 Pain Scale Used Standard (1-10) Blood Pressure (mm Hg) 128/79 Pulse Rate (beats/min) 101 Respiratory Rate (breaths/min) 16 Depth Normal Effort Normal for Patient Pattern Regular Pulse Oximetry (95-100 %) 96 Oxygen Delivery Room Air Document 05/23/16 00:48 ACM (Rec: 05/23/16 00:48 ACM [id number]) ED Vital Signs Pain Reported Pain Reported Pain Scale 5 Pain Scale Used Standard (1-10) Pulse Rate (beats/min) 109 Respiratory Rate (breaths/min) 18 Depth Normal Effort Normal for Patient Pattern Regular Pulse Oximetry (95-100 %) 94 Oxygen Delivery Room Air Vital Signs Assessment Start: 05/23/16 01: 02 Freq: Q4H Status: Active Document 05/23/16 02:07 CPB (Rec: 05/23/16 02:08 CPB [id number]) Vital Signs with MEWS Temperature (97.6 F-99.6 F) 100.6 F Temperature Source Oral Pulse Rate (beats/min) 104 Respiratory Rate (breaths/min) 22 Pulse Oximetry (95-100 %) 92 Oxygen Delivery Room Air Blood Pressure (mm Hg) 91/63 Blood Pressure Location Right Arm Source Automatic Cuff Position Sitting Wound Care Start: 05/22/16 23: 51 Freq: Status: Complete Document 05/22/16 23:51 [facility] (Rec: 05/22/16 23:52 [facility] [id number]) ED Skin Treatment Right Lower Leg Dressing Supplies Used ABD Pad Kerlex Antibiotic Ointment Left Lower Leg Dressing Supplies Used ABD Pad Kerlex Antibiotic Ointment Patient Tolerance Tolerated Well Time (minutes) for procedure 30 Discharge Information ED Provider: Francisco Waite Status: Departed Time Seen by Provider: 05/22/16 21:18 Condition: Fair Triaged At: 05/22/16 20:58 Emergency Discharge Date/Time: 05/23/16 01:12 Emergency Discharge Disposition: Admitted As Inpatient Clinical Impression Osteomyelitis of left lower extremity Osteomyelitis of right lower extremity Emergency Discharge Comment: Admit Intervention Last Done ED Shortness of Breath Assessment 05/22/16 21:10 Query Result Sepsis Infection Criteria Present none Sepsis SIRS Criteria none Sepsis Screen No Definite Risk Shortness Of Breath Symptoms/Complaint Shortness of Breath Cough Shortness Of Breath Onset today Shortness Of Breath Duration Constant Shortness Of Breath Severity Moderate Shortness Of Breath Context Recent Illness History/simular sympoms Shortness Of Breath Known History Recurrent Pneumonia Shortness Of Breath Improves With Nothing Shortness Of Breath Worsens With Nothing Shortness Of Breath Associated Symptoms Cough Wheezing Shortness Of Breath Treatments Prior to None Arrival Chest Pain Intensity 0 Respiratory Depth Normal Respiratory Effort Normal for Patient Spontaneous Non-Labored Respiratory Pattern Regular Respiratory Retraction Type Subcostal Throughout -Breath Sounds Inspiratory Wheezing Expiratory Wheezing Cough Description Involuntary Wheezy Cough Frequency Intermittent Level Of Consciousness Disoriented Restless Patient Behavior Appropriate Cooperative Ability to Follow Directions Good Impaired Cognition No Skin Temperature Warm Skin Moisture Moist Skin Turgor Normal Capillary Refill < 3 Seconds ED Discharge Assessment 05/23/16 00:59 Query Result ED Discharge Disposition Admitted ED Condition on Discharge Fair Med Rec/Patient Phamracy completed? Yes: per caregiver ED Admit to 3NE Bed assigned 29 Transported by sound technician supervisor Transported with IV Severity scale (1-10) 7 Pain Scale Used Standard (1-10) Blood Pressure 110/75 Heart rate 92 Respiratory Rate 16 Oxygen Delivery Room Air Pulse Oximetry Reading 94 Critical Care Minutes 0 Observation Discharge Date/Time: Observation Discharge Disposition: Observation Discharge Comment: Instructions: Stand-Alone Forms: Prescriptions: Visit Report - Forms: - Referrals: Radiology Results Chest X-Ray 05/22/16 21:35
[2016-05-23] MEDS ORDERED: Vancomycin 1,250 MG in D5% in Water 250 ML IVPB SCH (04:00)
[2016-05-23] MEDS: Ipratropium/Albuterol Neb 3 ML IH SCH ×5 (05:00→22:44)
[2016-05-23] MEDS: Acetaminophen 325 MG TABLET PO PRN ×2 (06:13→23:07)
[2016-05-23] MEDS: Vancomycin 1,750 MG in D5% in Water 500 ML IVPB SCH ×2 (06:13→16:50)
[2016-05-23 07:40] LABS: VBG HCO3 34.8 mEq/L (21-27); VBG PH 7.46 pH Units (7.32-7.42)
[2016-05-23 07:55] LABS: Magnesium 1.4 mg/dL (1.6-2.6); Phosphorous 2.9 mg/dL (2.3-4.7)
[2016-05-23 08:11] LABS: Hemoglobin A1C 4.6 %
[2016-05-23 08:16] LABS: Thyroid Stimulating Hormone 6.278 mcIU/mL (0.350-4.840)
[2016-05-23] MEDS ORDERED: Folic Acid 1 MG TABLET PO SCH (09:00)
[2016-05-23] MEDS ORDERED: Levofloxacin 750 MG/150 ML 750 MG/150 ML BAG IVPB SCH (09:00)
[2016-05-23] MEDS: Furosemide 20 MG TABLET PO SCH (10:01)
[2016-05-23] MEDS: Zinc Sulfate 220 MG CAPSULE PO SCH (10:02)
[2016-05-23] MEDS: Multivit/Ca/Min/Fe/FA 1 TAB TABLET PO SCH (10:02)
[2016-05-23] MEDS: Gentamicin Oint 15 GM TUBE TP SCH (10:02)
[2016-05-23] MEDS: Ascorbic Acid 500 MG TABLET PO SCH (10:02)
[2016-05-23] MEDS: Lactobacillus 1 EACH CAP.SPRINK PO SCH ×2 (10:02→22:13)
[2016-05-23] MEDS: Famotidine 20 MG TABLET PO SCH ×2 (10:02→22:13)
[2016-05-23] MEDS ORDERED: Magnesium Sulfate 2 GM in D5% in Water 100 ML IVPB ONE (10:10)
--- NOTE | 2016-05-23 14:05 | Internal Med Progress Note ---
<Aaron Rocha - Last Filed: 05/23/16 16:41> Date of Encounter: 05/23/16 Time of Encounter: 11:50 - Assessment and plan (1) Sepsis Current Visit: Yes Status: Acute Assessment and plan: Patient meets sepsis criteria with WBC of 22, T 100.6, and tachycardia. Most likely source is secondary to his chronic wounds of the lower extremities. CT of the chest was performed and dose not show any acute processes. Blood cultures have been collected and are pending. UA was ordered and is pending. No organ dysfunction and normal lactic acid so this is not severe sepsis. Currently he is on Meropenem and Vancomycin. we will continue as this is good coverage. We can franci once we have culture results. Duration of antibiotics will depend on clinical course. However most likely he will need a long course of antibiotics given possible chronic osteomyelitis seen on MRI from 05/18/16 with overlying chronic wounds of the lower extremities. I have also requested culture results and records form [facility] as well. Ultimately he may need transfer to another facility where he can have surgical and ID consultation. Qualifiers: Qualified Code(s): A41.9 - Sepsis, unspecified organism (2) Cellulitis Current Visit: Yes Status: Acute Assessment and plan: as stated above. Qualifiers: Qualified Code(s): L03.90 - Cellulitis, unspecified (3) Osteomyelitis Current Visit: Yes Status: Acute Assessment and plan: probable based on MRI findings. Current ESR is only 16. However he likely recieved treatement at [facility]. Qualifiers: Qualified Code(s): M86.9 - Osteomyelitis, unspecified (4) Prader-Willi syndrome Current Visit: Yes Status: Acute (5) Chronic wound of extremity Current Visit: Yes Status: Acute Assessment and plan: wound care consulted (6) Anemia Current Visit: Yes Status: Acute Assessment and plan: patient has chronic anemia and iron deficiency. May require iron infusion and endoscopy in the future. However no active bleeding at this time. additionally he likely has some chronic anemia from chronic infections. No IV iron at this time as he currently has an active infection. Qualifiers: Qualified Code(s): D64.9 - Anemia, unspecified (7) Metabolic alkalosis Current Visit: Yes Status: Acute Assessment and plan: Etiology unclear. May ave received diuresis at other facility. Currently he is on room air and has a normal effort of breathing so I doubt it is respiratory in origin. May also consider this secondary to meropenem. However this is a very rare cause of metabolic alkalosis. Alkalosis is mild . continue to monitor. (8) DVT prophylaxis Current Visit: Yes Status: Acute Assessment and plan: will hold off on heparin as he is anemia and also had recent GI bleed and has not had endoscopy since that time. With chronic lower extremity wounds compression devices are not able to placed at this time. - Subjective Interval history: Mr. Junior is a 46 y.o. 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 He had been admitted for Aspiration pneumonia , and sepsis. Additionally there was concern for possible osteomyelitis of the lower extremities from non healing wounds ( reportedly he " picks at them). A Ct scan was performed on that reveled bilateral peristeol thickening of the bilateral tibias and the left fibila. An MRI of the lower extremities was performed on 05/18/16 that revealed bone marrow edema with mildly decreased T1 signal in the mid bilateral tibial diaphysis. This could be compatable with reactive osteitis versus chronic osteomyelitis. He was stabilized in the ICU. Per my discussion with the ICU staff this AM the patient was discussed with orthopedic surgery who did not typically manage tibial osteomyelitis so the patient was transferred to [facility]. We did recieve some paper work from [facility]. However it was an admission H&P as well as some routine lab work. Per our medication reconciliation the patient was on bactrim. Today Mr. junior is a poor historian. there is no family present during my interview. He dose not complain of dyspnea, abdominal pain or N/V. He dose complain of pain in his bilateral lower extremities. He has no further complaints or concerns at this time. - Constitutional Vitals: Temp Pulse Resp BP Pulse Ox 98.8 F 97 20 119/77 98 05/23/16 10:53 05/23/16 10:53 05/23/16 10:53 05/23/16 10:53 05/23/16 10:53 General appearance: Present: A&O X 2, morbidly obese, pleasant, no acute distress - Head Head exam: Present: atraumatic, normal inspection, normocephalic - Eye Eye exam: Present: PERRL, conjuntiva pink, sclera anicteric Pupils: Present: PERRL - Neck Neck exam general surgery: Present: supple, trachea midline. Absent: lymphadenopathy - Respiratory Respiratory exam: Present: CTAB. Absent: accessory muscle use, rales, rhonchi, wheezes - Cardiovascular Cardiovascular exam: Present: RRR, +S1, +S2. Absent: diastolic murmur, gallop, rubs, systolic murmur - GI/Abdominal GI/Abdominal exam: Present: normal bowel sounds, soft, no peritoneal signs. Absent: distended, tenderness Additional comments: obese - Extremities Exam Additional comments: The bilateral lower extremites are dressed. There is diffuse shadowing of what appears to be purulent fluid from the dressing. Patient adamantly refuses to let me undress his legs at this time. No family present at this time. Internal Medicine: Result - Labs CBC & Chem 7: 05/22/16 22:03 05/22/16 22:03 Labs: Cardiac Enzymes 05/23/16 Range/Units 07:01 Troponin I 0.02 (0-0.03) ng/mL - ABG Interpretation ABG results: PT/INR, D-dimer PT 12.1 Seconds (9.4-12.1) 05/22/16 22:03 - Impressions Impressions Chest CT 05/23/16 08:00 IMPRESSION: No acute process of the chest. The lungs are clear. Hiatal hernia. Infiltration of the subcutaneous tissues lower chest/upper abdomen left greater than right suggesting some edema/anasarca. D/ / 05/23/2016 08:57:20 Chuck Foley MD / [facility] Interpreting Provider: Chuck Foley MD Consult Discharge Plan - Plan Referrals: Evgeny Griffith MD [Primary Care Provider] - <Max Clancy - Last Filed: 05/23/16 17:06> Date of Encounter: 05/23/16 - Constitutional Vitals: Temp Pulse Resp BP Pulse Ox 99.0 F 102 20 145/89 93 L 05/23/16 14:00 05/23/16 14:00 05/23/16 15:41 05/23/16 14:00 05/23/16 15:41 Internal Medicine: Result - Labs CBC & Chem 7: 05/22/16 22:03 05/22/16 22:03 Labs: Cardiac Enzymes 05/23/16 05/23/16 Range/Units 07:01 15:24 Troponin I 0.02 0.01 (0-0.03) ng/mL - ABG Interpretation ABG results: PT/INR, D-dimer PT 12.1 Seconds (9.4-12.1) 05/22/16 22:03 - Impressions Impressions Chest CT 05/23/16 08:00 IMPRESSION: No acute process of the chest. The lungs are clear. Hiatal hernia. Infiltration of the subcutaneous tissues lower chest/upper abdomen left greater than right suggesting some edema/anasarca. D/ / 05/23/2016 08:57:20 Chuck Foley MD / [facility] Interpreting Provider: Chuck Foley MD - Attending Attestation I examined this patient and my medical decision-making was reviewed with the PASTORAL ASSISTANT/PA/Advanced Practice Nurse/Resident Physician. I agree with the documented findings, disposition and treatment plan as described except to the extent set forth below. I agree with the documentation according to Dr. Aaron Rocha's note. Continue with IV antibiotics, follow cultures. D/W patient and his family member in detail.
[2016-05-23] MEDS: Meropenem 1,000 MG in 0.9 % Sodium Chloride Mini Bag 100 ML IVPB SCH ×2 (15:13→16:47)
[2016-05-23 23:45] LABS: Adenovirus Not Detected (Not Detect); Bordetella Pertussis Not Detected (Not Detect); Chlamydophila pneumoniae Not Detected (Not Detect); Coronavirus 229E Not Detected (Not Detect); Coronavirus HKU1 Not Detected (Not Detect); Coronavirus NL63 Not Detected (Not Detect); Coronavirus OC43 Not Detected (Not Detect); Human Metapneumovirus Not Detected (Not Detect); Human Rhinovirus/Enterovirus Not Detected (Not Detect); Influenza A Subtype 2009 H1 Not Detected (Not Detect); Influenza A Untypeable Not Detected (Not Detect); Influenza B Not Detected (Not Detect); Mycoplasma pneumoniae Not Detected (Not Detect); Parainfluenza Virus 1 Not Detected (Not Detect); Parainfluenza Virus 2 Not Detected (Not Detect); Parainfluenza Virus 3 Not Detected (Not Detect); Parainfluenza Virus 4 Not Detected (Not Detect); Respiratory Syncytial Virus Not Detected (Not Detect)
[2016-05-24] MEDS: Meropenem 1,000 MG in 0.9 % Sodium Chloride Mini Bag 100 ML IVPB SCH ×3 (00:38→18:09)
[2016-05-24] MEDS: Vancomycin 1,750 MG in D5% in Water 500 ML IVPB SCH (04:43)
[2016-05-24] MEDS: Ipratropium/Albuterol Neb 3 ML IH SCH ×4 (05:00→23:22)
[2016-05-24 05:09] LABS: Mean Corpuscular Hemoglobin 22.8 pg (28.0-33.3); Monocytes % 12.5 %; Red Cell Distribution Width 17.6 % (11.5-14.5)
[2016-05-24 05:10] LABS: Basophils # 0.1 K/mcL (0.0-0.2); Basophils % 0.4 %; Eosinophils # 1.5 K/mcL (0.0-0.6); Eosinophils % 9.6 %; Hematocrit 26.5 % (37.5-50.1); Hemoglobin 7.6 g/dL (12.9-16.9); Lymphocytes # 2.7 K/mcL (0.6-4.6); Lymphocytes % 16.8 %; Mean Corpuscular HGB Conc 28.7 g/dL (31.6-35.5); Mean Corpuscular Volume 79.6 fL (83.0-100.0); Mean Platelet Volume 10.4 fL (9.4-12.4); Neutrophils # 9.4 K/mcL (1.6-8.9); Platelet Count 338 K/mcL (140-400); Red Blood Count 3.33 M/mcL (4.19-5.50); Segmented Neutrophils % 58.7 %
[2016-05-24 05:14] LABS: Ionized Calcium 1.04 mmol/L (1.15-1.35)
[2016-05-24 05:22] LABS: Alanine Aminotransferase 27 Units/L (0-55); Albumin 1.9 g/dL (3.5-5.0); Albumin/Globulin Ratio 0.6 (1.1-2.2); Alkaline Phosphatase 119 Units/L (38-126); Aspartate Amino Transferase 28 Units/L (5-34); BUN/Creatinine Ratio 25 (6-26); Bilirubin,Total 0.4 mg/dL (0.2-1.2); Blood Urea Nitrogen 18 mg/dL (8-26); Calcium 7.7 mg/dL (8.6-10.8); Carbon Dioxide 27 mEq/L (19-29); Chloride 104 mEq/L (98-109); Globulin 3.3 g/dL (2.4-3.5); Glucose 132 mg/dL (70-99); Magnesium 1.7 mg/dL (1.6-2.6); Osmolality,Calculated 290 (280-300); Potassium 4.2 mEq/L (3.5-4.5); Sodium 138 mEq/L (136-145); Total Protein 5.2 g/dL (6.0-8.3); eGFR For African Americans > 60 (> 60); eGFR For Non-African Americans > 60 (> 60)
[2016-05-24 05:30] LABS: Anisocytosis 1+ (Not Present); Microcytosis Present (Not Present)
[2016-05-24 05:31] LABS: Hypochromasia Present (Not Present); Platelet Estimate Normal (Normal); Polychromasia 2+ (Not Present)
[2016-05-24] MEDS: Ascorbic Acid 500 MG TABLET PO SCH (09:40)
[2016-05-24] MEDS: Famotidine 20 MG TABLET PO SCH ×2 (09:40→20:54)
[2016-05-24] MEDS: Multivit/Ca/Min/Fe/FA 1 TAB TABLET PO SCH (09:40)
[2016-05-24] MEDS: Lactobacillus 1 EACH CAP.SPRINK PO SCH ×2 (09:40→20:54)
[2016-05-24] MEDS: Furosemide 20 MG TABLET PO SCH (09:40)
[2016-05-24] MEDS: Zinc Sulfate 220 MG CAPSULE PO SCH (09:41)
[2016-05-24] MEDS: Gentamicin Oint 15 GM TUBE TP SCH (10:58)
--- NOTE | 2016-05-24 13:06 | Internal Med Progress Note ---
<Aaron Rocha - Last Filed: 05/24/16 13:02> Date of Encounter: 05/24/16 Time of Encounter: 11:35 - Assessment and plan (1) Sepsis Current Visit: Yes Status: Acute Assessment and plan: Patient meets sepsis criteria with WBC of 22, T 100.6, and tachycardia. Most likely source is secondary to his chronic wounds of the lower extremities. CT of the chest was performed and dose not show any acute processes. Blood cultures have been collected and are pending. UA was ordered and is pending. No organ dysfunction and normal lactic acid so this is not severe sepsis. Currently he is on Meropenem and Vancomycin. we will continue as this is good coverage. We can tailor once we have culture results. Duration of antibiotics will depend on clinical course. However most likely he will need a long course of antibiotics given chronic wounds and possible chronic osteomyelitis seen on MRI from 05/18/16 with overlying chronic wounds of the lower extremities. however inflammatory markers are quite low. I have also requested culture results and records form [facility] as well. 05/24/16 No major events overnight. Still meets SIRS criteria with T 100.9 and Leukocytosis. However leukocytosis is trending down. I spoke with Dr. Terrazas over the phone. He has been seeing this patient for many years. He is currently trying to get the patient an appointment at either the [facility] or [facility] in [place] to be evaluated for potential skin grafts. We will continue current antibiotics and follow with culture results. Once the patient is more stable will plan to DC with close follow up with Dr. Terrazas. Qualifiers: Qualified Code(s): A41.9 - Sepsis, unspecified organism (2) Cellulitis Current Visit: Yes Status: Acute Assessment and plan: as stated above. Qualifiers: Qualified Code(s): L03.90 - Cellulitis, unspecified (3) Prader-Willi syndrome Current Visit: Yes Status: Acute (4) Chronic wound of extremity Current Visit: Yes Status: Acute Assessment and plan: wound care consulted (5) Anemia Current Visit: Yes Status: Acute Assessment and plan: patient has chronic anemia and iron deficiency. significant bleeding from wounds per sisters acount. May require iron infusion and endoscopy in the future. However no active bleeding at this time. additionally he likely has some chronic anemia from chronic infections. No IV iron at this time as he currently has an active infection. Hg currently 7.8. transfuse if < 7.0 Qualifiers: Qualified Code(s): D64.9 - Anemia, unspecified (6) Metabolic alkalosis Current Visit: Yes Status: Acute Assessment and plan: resolved (7) DVT prophylaxis Current Visit: Yes Status: Acute Assessment and plan: will hold off on heparin as he is anemia and also had recent GI bleed and has not had endoscopy since that time. With chronic lower extremity wounds compression devices are not able to placed at this time. - Subjective Interval history: Mr. Junior is a 46 y.o. male with Prader Willi disease who was recently dishcarged from [facility] on 05/19/16. He had been admitted for Aspiration pneumonia , and sepsis. Additionally there was concern for possible osteomyelitis of the lower extremities from non healing wounds ( reportedly he " picks at them). A Ct scan was performed on that reveled bilateral peristeol thickening of the bilateral tibias and the left fibila. An MRI of the lower extremities was performed on 05/18/16 that revealed bone marrow edema with mildly decreased T1 signal in the mid bilateral tibial diaphysis. This could be compatable with reactive osteitis versus chronic osteomyelitis. He was stabilized in the ICU. Per my discussion with the ICU staff this AM the patient was discussed with orthopedic surgery who did not typically manage tibial osteomyelitis so the patient was transferred to [facility]. We did recieve some paper work from [facility]. However it was an admission H&P as well as some routine lab work. Per our medication reconciliation the patient was on bactrim. 05/23/16 Today Mr. junior is a poor historian. However his sister who has been his guardian for 8 years is present. she states that he has chronic recurring wounds. She states that he began to have problems with lower extremity wounds event prior to her becoming his guardian. She states that the reason she brought him to the hospital this time was because he had vomited and she was concerned he may have aspirated. She dose states that over the last few weeks he has had some increased pain in the left leg. However he was still able to ambulate through the house. She states that he has had long standing anemia. he last had a endoscopy by Dr. Reece. She states that he dose have significant bleeding from his lower extremity wounds when he is walking or standing. At this time Facundo dose not have any complaints. He denies any pain or discomfort. He denies any difficulty in breathing. He has no complaints or concerns at this time. - Constitutional Vitals: Temp Pulse Resp BP Pulse Ox 98.1 F 101 28 116/74 97 05/24/16 10:06 05/24/16 10:06 05/24/16 10:06 05/24/16 10:06 05/24/16 10:06 General appearance: Present: A&O X 2, morbidly obese, pleasant, no acute distress - Head Head exam: Present: atraumatic, normal inspection, normocephalic - Eye Eye exam: Present: PERRL, conjuntiva pink, sclera anicteric Pupils: Present: PERRL - Neck Neck exam general surgery: Present: supple, trachea midline. Absent: lymphadenopathy - Respiratory Respiratory exam: Present: CTAB. Absent: accessory muscle use, rales, rhonchi, wheezes - Cardiovascular Cardiovascular exam: Present: RRR, +S1, +S2. Absent: diastolic murmur, gallop, rubs, systolic murmur - GI/Abdominal GI/Abdominal exam: Present: normal bowel sounds, soft, no peritoneal signs. Absent: distended, tenderness Additional comments: obese - Extremities Exam Extremities exam: Present: warm, radial pulses palpable and symetrical. Absent : calf tenderness, cyanotic, pedal edema Additional comments: bilateral legs are well dressed and clean without shadowing - Skin Skin exam: Present: dry, intact Internal Medicine: Result - Labs CBC & Chem 7: 05/24/16 04:50 05/24/16 04:50 Labs: Short CBC 05/24/16 Range/Units 04:50 WBC 16.0 H (4.3-11.1) K/mcL Hgb 7.6 L (12.9-16.9) g/dL Hct 26.5 L (37.5-50.1) % Plt Count 338 (140-400) K/mcL Neutrophils # 9.4 H (1.6-8.9) K/mcL BMP 05/24/16 04:50 Sodium 138 Potassium 4.2 Chloride 104 Carbon Dioxide 27 BUN 18 Creatinine 0.73 Glucose 132 H Calcium 7.7 L Cardiac Enzymes 05/23/16 Range/Units 15:24 Troponin I 0.01 (0-0.03) ng/mL Liver Function 05/24/16 Range/Units 04:50 Total Bilirubin 0.4 (0.2-1.2) mg/dL AST 28 (5-34) Units/L ALT 27 (0-55) Units/L Alkaline Phosphatase 119 (38-126) Units/L Albumin 1.9 L D (3.5-5.0) g/dL - ABG Interpretation ABG results: PT/INR, D-dimer PT 12.1 Seconds (9.4-12.1) 05/22/16 22:03 Consult Discharge Plan - Plan Referrals: Evgeny Griffith MD [Primary Care Provider] - <Max Clancy - Last Filed: 05/25/16 16:29> Date of Encounter: 05/25/16 - Constitutional Vitals: Temp Pulse Resp BP Pulse Ox 98.3 F 111 18 113/65 97 05/25/16 15:36 05/25/16 15:36 05/25/16 15:36 05/25/16 15:36 05/25/16 15:36 Internal Medicine: Result - Labs CBC & Chem 7: 05/25/16 08:31 05/25/16 08:31 Labs: Short CBC 05/24/16 05/25/16 Range/Units 23:34 08:31 WBC 10.5 (4.3-11.1) K/mcL Hgb 7.6 L 7.2 L (12.9-16.9) g/dL Hct 26.9 L 25.0 L (37.5-50.1) % Plt Count 340 (140-400) K/mcL Neutrophils # 5.4 (1.6-8.9) K/mcL BMP 05/25/16 08:31 Sodium 138 Potassium 4.2 Chloride 103 Carbon Dioxide 27 BUN 14 Creatinine 0.60 L Glucose 103 H Calcium 8.0 L Cardiac Enzymes 05/24/16 Range/Units 19:27 Troponin I 0.03 (0-0.03) ng/mL - ABG Interpretation ABG results: ABG ABG pH 7.45 pH Units (7.32-7.45) 05/24/16 19:25 ABG pCO2 44 mmHg (35-45) 05/24/16 19:25 ABG pO2 90 mmHg (85-104) 05/24/16 19:25 ABG O2 Saturation 97 % (95-98) 05/24/16 19:25 PT/INR, D-dimer PT 12.1 Seconds (9.4-12.1) 05/22/16 22:03 - Impressions Impressions Chest X-Ray 05/24/16 18:58 IMPRESSION: 1. New left basilar airspace opacity, potentially atelectasis, pneumonia, or aspiration. 2. Pulmonary vascular congestion and mild cardiomegaly with suspected bilateral perihilar edema. 3. Prominent pulmonary trunk, a finding that can be seen with pulmonary hypertension. D/ / Best Tobin MD / Best Tobin MD Interpreting Provider: Best Tobin MD Chest CTA 05/24/16 20:16 IMPRESSION: No evidence of significant pulmonary embolism. Suspect new patchy airspace disease right upper lobe. Concern would be for potential aspiration or pneumonia. This is new from the prior study but poorly seen with respiratory motion. Small hiatal hernia with reflux and esophageal wall thickening. Possible reflux esophagitis. Fatty infiltration liver. Atrophy of the included left kidney. D/ / Torres Mar MD / Torres Mar MD Interpreting Provider: Torres Mar MD - Attending Attestation I examined this patient and my medical decision-making was reviewed with the OSTOMY NURSE/PA/Advanced Practice Nurse/Resident Physician. I agree with the documented findings, disposition and treatment plan as described except to the extent set forth below. CT angio, no PE, on road spectrum antibiotics. Possible chronic aspirations.
[2016-05-24] MEDS: Acetaminophen 325 MG TABLET PO PRN (13:33)
[2016-05-24] MEDS ORDERED: Haloperidol Lactate 5 MG/ML VIAL IVP PRN (18:33)
[2016-05-24] MEDS ORDERED: Ipratropium/Albuterol Neb 3 ML IH ONE (18:58)
[2016-05-24] MEDS ORDERED: Ipratropium/Albuterol Neb 3 ML IH PRN (18:59)
[2016-05-24 19:40] LABS: ABG HCO3 30.6 mEQ/L (21-27); ABG Oxygen Saturation 97 % (95-98); ABG PCO2 44 mmHg (35-45); ABG PH 7.45 pH Units (7.32-7.45); ABG PO2 90 mmHg (85-104)
[2016-05-24 19:41] LABS: Blood Gas FiO2 28 %
[2016-05-24] MEDS ORDERED: Furosemide 20 MG/2 ML VIAL IVP ONE (21:15)
[2016-05-24] MEDS ORDERED: Ondansetron 4 MG/2 ML VIAL IVP ONE (21:26)
--- NOTE | 2016-05-24 22:26 | Event Note ---
Date of Encounter: 05/25/16 Time of Encounter: 20:00 Paged by nurse concerning patient's respiratory status. I personally saw patient who was tachypenic and had shallow breathing on nasal cannula. He did have bilateral crackles after reportedly vomiting earlier and likely had aspirated. Stat CXR was already ordered and showed basilar opacity concerning for aspiration pneumonia. He was already on Meropenem and Vancomycin, providing both anaerobic and MRSA coverage, which we will continue for now. He was also given 20 mg IV lasix to help with pulmonary edema. Stat ABG did not show any hypercapenia nor acidosis. Patient did have an additional episode of vomiting just prior to going down for a CTA to rule out PE. He was given another dose of IV Zofran. Labs were reviewed and showed a slight decrease in Hb over the past 2 days, and type and screen was ordered and along with H/H to see if he may need transfusion. Nurse did not report any bleeding from the patient. Hb returned at 7.6 which is unchanged from the morning lab, so no transfusion is necessary at this time. CTA was negative for PE but did confirm possible pneumonia secondary to aspiration.
[2016-05-24 23:45] LABS: Hematocrit 26.9 % (37.5-50.1); Hemoglobin 7.6 g/dL (12.9-16.9)
[2016-05-25] MEDS: Meropenem 1,000 MG in 0.9 % Sodium Chloride Mini Bag 100 ML IVPB SCH ×3 (00:04→15:42)
[2016-05-25] MEDS: Vancomycin 1,250 MG in D5% in Water 250 ML IVPB SCH ×2 (00:11→12:04)
[2016-05-25] MEDS: Ipratropium/Albuterol Neb 3 ML IH SCH ×4 (05:47→23:48)
[2016-05-25] MEDS: Acetaminophen 325 MG TABLET PO PRN (06:35)
[2016-05-25 08:55] LABS: Basophils % 0.4 %; Eosinophils % 10.9 %; Hemoglobin 7.2 g/dL (12.9-16.9); Immature Granulocytes % 1.9 % (0-4); Immature Platelets 3.3 % (1.1-6.1); Lymphocytes # 2.1 K/mcL (0.6-4.6); Lymphocytes % 19.7 %; Mean Corpuscular HGB Conc 28.8 g/dL (31.6-35.5); Mean Corpuscular Hemoglobin 23.1 pg (28.0-33.3); Mean Corpuscular Volume 80.1 fL (83.0-100.0); Mean Platelet Volume 10.4 fL (9.4-12.4); Monocytes # 1.7 K/mcL (0.0-1.3); Monocytes % 15.8 %; Neutrophils # 5.4 K/mcL (1.6-8.9); Platelet Count 340 K/mcL (140-400); Red Blood Count 3.12 M/mcL (4.19-5.50); Red Cell Distribution Width 17.8 % (11.5-14.5); Segmented Neutrophils % 51.3 %
[2016-05-25 08:56] LABS: Eosinophils # 1.1 K/mcL (0.0-0.6)
[2016-05-25 08:57] LABS: BUN/Creatinine Ratio 23 (6-26); Blood Urea Nitrogen 14 mg/dL (8-26); Carbon Dioxide 27 mEq/L (19-29); Chloride 103 mEq/L (98-109); Glucose 103 mg/dL (70-99); Osmolality,Calculated 287 (280-300); Potassium 4.2 mEq/L (3.5-4.5); Sodium 138 mEq/L (136-145); eGFR For African Americans > 60 (> 60); eGFR For Non-African Americans > 60 (> 60)
[2016-05-25 09:17] LABS: Large Platelets Present (Not Present); Platelet Estimate Normal (Normal)
[2016-05-25 09:18] LABS: Hypochromasia Present (Not Present); Microcytosis Present (Not Present); Polychromasia 1+ (Not Present)
[2016-05-25] MEDS: Gentamicin Oint 15 GM TUBE TP SCH (09:52)
[2016-05-25] MEDS: Famotidine 20 MG TABLET PO SCH ×3 (09:52→22:53)
[2016-05-25] MEDS: Furosemide 20 MG TABLET PO SCH (09:52)
[2016-05-25] MEDS: Lactobacillus 1 EACH CAP.SPRINK PO SCH ×3 (09:52→22:53)
[2016-05-25] MEDS: Multivit/Ca/Min/Fe/FA 1 TAB TABLET PO SCH (09:53)
[2016-05-25] MEDS: Ascorbic Acid 500 MG TABLET PO SCH (09:53)
[2016-05-25] MEDS: Zinc Sulfate 220 MG CAPSULE PO SCH (09:53)
--- NOTE | 2016-05-25 14:55 | Internal Med Progress Note ---
<Aaron Rocha - Last Filed: 05/25/16 15:06> Date of Encounter: 05/25/16 Time of Encounter: 12:10 - Assessment and plan (1) Sepsis Current Visit: Yes Status: Acute Assessment and plan: Patient meets sepsis criteria with WBC of 22, T 100.6, and tachycardia. Most likely source is secondary to his chronic wounds of the lower extremities. CT of the chest was performed and dose not show any acute processes. Blood cultures have been collected and are pending. UA was ordered and is pending. No organ dysfunction and normal lactic acid so this is not severe sepsis. Currently he is on Meropenem and Vancomycin. we will continue as this is good coverage. We can tailor once we have culture results. Duration of antibiotics will depend on clinical course. However most likely he will need a long course of antibiotics given chronic wounds and possible chronic osteomyelitis seen on MRI from 05/18/16 with overlying chronic wounds of the lower extremities. however inflammatory markers are quite low. I have also requested culture results and records form [facility] as well. 05/24/16 No major events overnight. Still meets SIRS criteria with T 100.9 and Leukocytosis. However leukocytosis is trending down. I spoke with Dr. Terrazas over the phone. He has been seeing this patient for many years. He is currently trying to get the patient an appointment at either the [facility] or [facility] in [place] to be evaluated for potential skin grafts. We will continue current antibiotics and follow with culture results. Once the patient is more stable will plan to DC with close follow up with Dr. Terrazas. 05/25/15 Patient no longer meets SIRS criteria this AM Leukocytosis has resolved blood cultures show no growth to date. On Meropenem and Vancomycin Consider deescalating antibiotics in the AM. Qualifiers: Qualified Code(s): A41.9 - Sepsis, unspecified organism (2) Cellulitis Current Visit: Yes Status: Acute Assessment and plan: as stated above. Qualifiers: Qualified Code(s): L03.90 - Cellulitis, unspecified (3) Prader-Willi syndrome Current Visit: Yes Status: Acute (4) Chronic wound of extremity Current Visit: Yes Status: Acute Assessment and plan: wound care consulted (5) Anemia Current Visit: Yes Status: Acute Assessment and plan: patient has chronic anemia and iron deficiency. significant bleeding from wounds per sisters account. May require iron infusion and endoscopy in the future. However no active bleeding at this time. additionally he likely has some chronic anemia from chronic infections. No IV iron at this time as he currently has an active infection. Hg trending down with Hg 7.2 this AM transfuse one unit PRBC Qualifiers: Qualified Code(s): D64.9 - Anemia, unspecified (6) Metabolic alkalosis Current Visit: Yes Status: Acute Assessment and plan: resolved (7) DVT prophylaxis Current Visit: Yes Status: Acute Assessment and plan: will hold off on heparin as he is anemic and requiring transfusions. Also had recent GI bleed and has not had endoscopy since that time. With chronic lower extremity wounds compression devices are not able to be placed at this time. - Subjective Interval history: Sol had increased work of breathing yesterday afternoon. He also had emesis and possible aspiration overnight. HE had hypoxemia with desaturation into the 70s. CXR showed bilateral basilar opacities. He was gien breathing treatments and lasix. CTA of the chest was also performed and negative for PE. Today he has improved. Currently he is maintaining his oxygen saturation on room. He states he is feeling better and can breath now. He denies any further complaints or concerns. Of note he is a poor hostorian. - Constitutional Vitals: Temp Pulse Resp BP Pulse Ox 97.8 F 75 16 127/87 94 L 05/25/16 11:36 05/25/16 11:36 05/25/16 11:36 05/25/16 11:36 05/25/16 11:36 General appearance: Present: A&O X 2, morbidly obese, pleasant, no acute distress - Head Head exam: Present: atraumatic, normocephalic - Eye Eye exam: Present: PERRL, conjuntiva pink, sclera anicteric Pupils: Present: PERRL - Neck Neck exam general surgery: Present: supple, trachea midline. Absent: lymphadenopathy - Respiratory Respiratory exam: Present: CTAB, wheezes (BL expiratory mild. ). Absent: accessory muscle use, rales, rhonchi - Cardiovascular Cardiovascular exam: Present: RRR, +S1, +S2. Absent: diastolic murmur, gallop, rubs, systolic murmur - GI/Abdominal GI/Abdominal exam: Present: normal bowel sounds, soft, no peritoneal signs. Absent: distended, tenderness - Extremities Exam Extremities exam: Present: warm, radial pulses palpable and symetrical. Absent : calf tenderness, cyanotic, pedal edema Additional comments: Lower extremities are clean adn well dressed with minimal shadowing. Internal Medicine: Result - Labs CBC & Chem 7: 05/25/16 08:31 05/25/16 08:31 Labs: Short CBC 05/24/16 05/25/16 Range/Units 23:34 08:31 WBC 10.5 (4.3-11.1) K/mcL Hgb 7.6 L 7.2 L (12.9-16.9) g/dL Hct 26.9 L 25.0 L (37.5-50.1) % Plt Count 340 (140-400) K/mcL Neutrophils # 5.4 (1.6-8.9) K/mcL BMP 05/25/16 08:31 Sodium 138 Potassium 4.2 Chloride 103 Carbon Dioxide 27 BUN 14 Creatinine 0.60 L Glucose 103 H Calcium 8.0 L Cardiac Enzymes 05/24/16 Range/Units 19:27 Troponin I 0.03 (0-0.03) ng/mL - ABG Interpretation ABG results: ABG ABG pH 7.45 pH Units (7.32-7.45) 05/24/16 19:25 ABG pCO2 44 mmHg (35-45) 05/24/16 19:25 ABG pO2 90 mmHg (85-104) 05/24/16 19:25 ABG O2 Saturation 97 % (95-98) 05/24/16 19:25 PT/INR, D-dimer PT 12.1 Seconds (9.4-12.1) 05/22/16 22:03 - Impressions Impressions Chest X-Ray 05/24/16 18:58 IMPRESSION: 1. New left basilar airspace opacity, potentially atelectasis, pneumonia, or aspiration. 2. Pulmonary vascular congestion and mild cardiomegaly with suspected bilateral perihilar edema. 3. Prominent pulmonary trunk, a finding that can be seen with pulmonary hypertension. D/ / Best Tobin MD / Best Tobin MD Interpreting Provider: Best Tobin MD Chest CTA 05/24/16 20:16 IMPRESSION: No evidence of significant pulmonary embolism. Suspect new patchy airspace disease right upper lobe. Concern would be for potential aspiration or pneumonia. This is new from the prior study but poorly seen with respiratory motion. Small hiatal hernia with reflux and esophageal wall thickening. Possible reflux esophagitis. Fatty infiltration liver. Atrophy of the included left kidney. D/ / Torres Mar MD / Torres Mar MD Interpreting Provider: Torres Mar MD Consult Discharge Plan - Plan Referrals: Evgeny Griffith MD [Primary Care Provider] - <Max Clancy - Last Filed: 05/25/16 16:30> Date of Encounter: 05/25/16 - Constitutional Vitals: Temp Pulse Resp BP Pulse Ox 98.3 F 111 18 113/65 97 05/25/16 15:36 05/25/16 15:36 05/25/16 15:36 05/25/16 15:36 05/25/16 15:36 Internal Medicine: Result - Labs CBC & Chem 7: 05/25/16 08:31 05/25/16 08:31 Labs: Short CBC 05/24/16 05/25/16 Range/Units 23:34 08:31 WBC 10.5 (4.3-11.1) K/mcL Hgb 7.6 L 7.2 L (12.9-16.9) g/dL Hct 26.9 L 25.0 L (37.5-50.1) % Plt Count 340 (140-400) K/mcL Neutrophils # 5.4 (1.6-8.9) K/mcL BMP 05/25/16 08:31 Sodium 138 Potassium 4.2 Chloride 103 Carbon Dioxide 27 BUN 14 Creatinine 0.60 L Glucose 103 H Calcium 8.0 L Cardiac Enzymes 05/24/16 Range/Units 19:27 Troponin I 0.03 (0-0.03) ng/mL - ABG Interpretation ABG results: ABG ABG pH 7.45 pH Units (7.32-7.45) 05/24/16 19:25 ABG pCO2 44 mmHg (35-45) 05/24/16 19:25 ABG pO2 90 mmHg (85-104) 05/24/16 19:25 ABG O2 Saturation 97 % (95-98) 05/24/16 19:25 PT/INR, D-dimer PT 12.1 Seconds (9.4-12.1) 05/22/16 22:03 - Impressions Impressions Chest X-Ray 05/24/16 18:58 IMPRESSION: 1. New left basilar airspace opacity, potentially atelectasis, pneumonia, or aspiration. 2. Pulmonary vascular congestion and mild cardiomegaly with suspected bilateral perihilar edema. 3. Prominent pulmonary trunk, a finding that can be seen with pulmonary hypertension. D/ / Best Tobin MD / Best Tobin MD Interpreting Provider: Best Tobin MD Chest CTA 05/24/16 20:16 IMPRESSION: No evidence of significant pulmonary embolism. Suspect new patchy airspace disease right upper lobe. Concern would be for potential aspiration or pneumonia. This is new from the prior study but poorly seen with respiratory motion. Small hiatal hernia with reflux and esophageal wall thickening. Possible reflux esophagitis. Fatty infiltration liver. Atrophy of the included left kidney. D/ / Torres Mar MD / Torres Mar MD Interpreting Provider: Torres Mar MD - Attending Attestation I examined this patient and my medical decision-making was reviewed with the DISHWASHING MACHINE REPAIRER/PA/Advanced Practice Nurse/Resident Physician. I agree with the documented findings, disposition and treatment plan as described except to the extent set forth below. CT concerning for aspiration pna. Continue antibiotics. Podiatry eval. Agree with Dr. Rocha.
[2016-05-25] MEDS ORDERED: Furosemide 20 MG/2 ML VIAL IVP ONE (15:00)
--- NOTE | 2016-05-25 15:40 | ECHO - Doppler Report ---
Echocardiogram Name: Jhonny Junior Date of Study: 05/25/2016 Date: 1970 Ht: 53.0 in Medical Record#: [id number] Age: 46 Wt: 200.0 lb Gender: Male BSA: 1.71 Order #: [id number] Location: [facility] Room #: 3B24 Reading Physician: Best Raymundo MD, [facility] Nurse Supervisor: Viri Beach RVT, [facility] Ordering Physician: Aaron Rocha DO Primary Physician: Evgeny Griffith MD Indications: Congestive heart failure Impressions: Technically sub-optimal due to poor echocardiographic windows. Sinus tachycardia. Heart rate was approximately 110 bpm throughout this exam. Grossly normal LV size and systolic function. Several myocardial segments were not adequately visualized due to poor image quality. Right ventricle was not well visualized. It appears dilated with grossly normal systolic function. Aortic valve function was not well assessed on this study. Possible mild aortic stenosis. Moderate tricuspid regurgitation. Severe pulmonary hypertension. Estimated RVSP = 75 mmHg. Abnormal results were discussed with the ordering physician. Findings: Study Quality * Technically sub-optimal due to poor echocardiographic windows. ECG Findings * Sinus tachycardia. Heart rate was approximately 110 bpm throughout this exam. Left Ventricle * Grossly normal LV size and systolic function. Several myocardial segments were not adequately visualized due to poor image quality. * Indeterminate diastolic function. Right Ventricle * Right ventricle was not well visualized. It appears dilated with grossly normal systolic function. Left Atrium * Normal left atrial size. Right Atrium * Normal right atrial size. Aorta * Normally sized aortic root. Pericardium * There is no pericardial effusion present. IVC * The IVC is not well evaluated. Aortic Valve * Aortic valve not well visualized. * Aortic valve function was not well assessed on this study. Possible mild aortic stenosis. Mitral Valve * Normal mitral valve structure. * No mitral stenosis. * Trace mitral regurgitation. Tricuspid Valve * Tricuspid valve not well visualized. * No tricuspid stenosis. * Moderate tricuspid regurgitation. * Severe pulmonary hypertension. Estimated RVSP = 75 mmHg. Pulmonic Valve * Pulmonic valve not well visualized. * Normal pulmonic valve function. History 08/07/2014 a Previous Echo was performed. Measurements: BP: 127/ 87 2D Normal Values IVSd: .80 cm 0.6 - 1.0 cm LVIDd: 4.10 cm 3.7 - 5.6 cm LVPWd: .90 cm 0.6 - 1.1 cm LVIDs: 2.30 cm 1.5 - 3.6 cm AO: 2.80 cm < 4.0 cm %FS: 43.90 cm >25 % LA volume: 26 Tricuspid Valve TV Regurg Peak Grad: 70.00mmHg TV Regurg Peak Julius: 4.20m/sec Updated by Best Raymundo MD, [facility] on 05/25/2016 3:36:09 PM electronically signed on 05/25/2016 3:37:10 PM with status of Final
--- NOTE | 2016-05-25 16:34 | Event Note ---
<Aaron Rocha - Last Filed: 05/25/16 16:34> Date of Encounter: 05/25/16 Time of Encounter: 16:29 Discussed echocardi[address] results [address] Dr[address] Raymundo. patient has severe pulmonary hypertension. Additionally appears to be some dilation of the right ventricle. Patients with Prader Willi syndrome have a high incidence of sleep-disordered breathing. This may be secondary to undiagnosed Sleep apnea. He may also have mild cor pulmonale given possible dilated right ventricle. JOHN would be difficult to treat in this patient as he may not tolerate mask. Will need further evaluation. He will need outpatient sleep study adn follow up with pulmonology. <Max Clancy - Last Filed: 05/27/16 07:18> Date of Encounter: 05/27/16 I examined this patient and my medical decision-making was reviewed with the SYSTEM INTEGRATION ENGINEER/PA/Advanced Practice Nurse/Resident Physician. I agree with the documented findings, disposition and treatment plan as described except to the extent set forth below. Agree with Dr. Rocha. Outpatient follow up with pulmonology.
[2016-05-25] MEDS ORDERED: 0.9 % Sodium Chloride 250 ML ONE (17:01)
[2016-05-26] MEDS: Meropenem 1,000 MG in 0.9 % Sodium Chloride Mini Bag 100 ML IVPB SCH ×4 (00:27→09:33)
[2016-05-26] MEDS: Ipratropium/Albuterol Neb 3 ML IH SCH ×4 (04:38→23:50)
[2016-05-26 04:52] LABS: Basophils # 0.1 K/mcL (0.0-0.2); Basophils % 0.5 %; Eosinophils # 1.2 K/mcL (0.0-0.6); Eosinophils % 8.1 %; Hematocrit 31.2 % (37.5-50.1); Immature Granulocytes % 1.5 % (0-4); Lymphocytes % 13.1 %; Mean Corpuscular HGB Conc 29.5 g/dL (31.6-35.5); Mean Corpuscular Hemoglobin 24.1 pg (28.0-33.3); Mean Corpuscular Volume 81.9 fL (83.0-100.0); Monocytes # 1.9 K/mcL (0.0-1.3); Neutrophils # 9.5 K/mcL (1.6-8.9); Nucleated Red Blood Cells 0.3 /100 WBC (0); Platelet Count 397 K/mcL (140-400); Red Blood Count 3.81 M/mcL (4.19-5.50); Red Cell Distribution Width 18.2 % (11.5-14.5); Segmented Neutrophils % 63.8 %
[2016-05-26 04:58] LABS: Hemoglobin 9.2 g/dL (12.9-16.9)
[2016-05-26 05:05] LABS: BUN/Creatinine Ratio 21 (6-26); Blood Urea Nitrogen 15 mg/dL (8-26); Calcium 8.2 mg/dL (8.6-10.8); Carbon Dioxide 29 mEq/L (19-29); Chloride 104 mEq/L (98-109); Glucose 105 mg/dL (70-99); Osmolality,Calculated 293 (280-300); Potassium 4.4 mEq/L (3.5-4.5); Sodium 141 mEq/L (136-145); eGFR For African Americans > 60 (> 60); eGFR For Non-African Americans > 60 (> 60)
[2016-05-26] MEDS: Lactobacillus 1 EACH CAP.SPRINK PO SCH ×2 (09:08→21:18)
[2016-05-26] MEDS: Ascorbic Acid 500 MG TABLET PO SCH (09:08)
[2016-05-26] MEDS: Famotidine 20 MG TABLET PO SCH ×2 (09:08→21:18)
[2016-05-26] MEDS: Zinc Sulfate 220 MG CAPSULE PO SCH (09:08)
[2016-05-26] MEDS: Multivit/Ca/Min/Fe/FA 1 TAB TABLET PO SCH (09:08)
[2016-05-26] MEDS: Gentamicin Oint 15 GM TUBE TP SCH (09:13)
[2016-05-26] MEDS: Furosemide 20 MG TABLET PO SCH (09:30)
[2016-05-26] MEDS ORDERED: Piperacillin/Tazobactam 3.375 GM in D5% in Water (Mini-Bag+) 100 ML IVPB SCH (10:30)
[2016-05-26] MEDS ORDERED: Ondansetron ODT 4 MG TAB.RAPDIS SL PRN (10:31)
--- NOTE | 2016-05-26 10:33 | Internal Med Progress Note ---
<Aaron Rocha - Last Filed: 05/26/16 17:33> Date of Encounter: 05/26/16 Time of Encounter: 10:29 - Assessment and plan (1) Sepsis Current Visit: Yes Status: Acute Assessment and plan: Patient meets sepsis criteria with WBC of 22, T 100.6, and tachycardia. Most likely source is secondary to his chronic wounds of the lower extremities. CT of the chest was performed and dose not show any acute processes. Blood cultures have been collected and are pending. UA was ordered and is pending. No organ dysfunction and normal lactic acid so this is not severe sepsis. Currently he is on Meropenem and Vancomycin. we will continue as this is good coverage. We can tailor once we have culture results. Duration of antibiotics will depend on clinical course. However most likely he will need a long course of antibiotics given chronic wounds and possible chronic osteomyelitis seen on MRI from 05/18/16 with overlying chronic wounds of the lower extremities. however inflammatory markers are quite low. I have also requested culture results and records form [facility] as well. 05/24/16 No major events overnight. Still meets SIRS criteria with T 100.9 and Leukocytosis. However leukocytosis is trending down. I spoke with Dr. Terrazas over the phone. He has been seeing this patient for many years. He is currently trying to get the patient an appointment at either the [facility] or [facility] in [place] to be evaluated for potential skin grafts. We will continue current antibiotics and follow with culture results. Once the patient is more stable will plan to DC with close follow up with Dr. Terrazas. 05/25/15 Patient no longer meets SIRS criteria this AM Leukocytosis has resolved blood cultures show no growth to date. On Meropenem and Vancomycin Consider deescalating antibiotics in the AM. 05/26/15 Patient has had return of fever and WBC trending up. With tachycardia. Meets Sepsis criteria again. We have redrawn blood cultures. Patient not tolerating meropenem due to burning. we will switch to Zosyn. We had dicontinued vancomycin. However I spoke with pharmacy and he should still be therapeutic. will get a CT of the Lower extremities to rule out intramuscular abscess. Qualifiers: Qualified Code(s): A41.9 - Sepsis, unspecified organism (2) Cellulitis Current Visit: Yes Status: Acute Assessment and plan: as stated above. Qualifiers: Qualified Code(s): L03.90 - Cellulitis, unspecified (3) Prader-Willi syndrome Current Visit: Yes Status: Acute (4) Chronic wound of extremity Current Visit: Yes Status: Acute Assessment and plan: wound care consulted (5) Anemia Current Visit: Yes Status: Acute Assessment and plan: patient has chronic anemia and iron deficiency. significant bleeding from wounds per sisters account. May require iron infusion and endoscopy in the future. However no active bleeding at this time. additionally he likely has some chronic anemia from chronic infections. No IV iron at this time as he currently has an active infection. Hg trending down with Hg 7.2 this AM transfuse one unit PRBC 05/26/15 s/P 1 unit PRBC. stable Now Hg 9.2 continue to monitor Qualifiers: Qualified Code(s): D64.9 - Anemia, unspecified (6) Metabolic alkalosis Current Visit: Yes Status: Acute Assessment and plan: resolved (7) DVT prophylaxis Current Visit: Yes Status: Acute Assessment and plan: will hold off on heparin as he is anemic and requiring transfusions. Also had recent GI bleed and has not had endoscopy since that time. With chronic lower extremity wounds compression devices are not able to be placed at this time. (8) Pulmonary hypertension Current Visit: Yes Status: Acute Assessment and plan: Severe Likely secondary to JOHN follow with pulmonology as outpatient - Subjective Interval history: Patient had some agitation overnight. He has refused antibiotics stating that it burned in his IV. He also refused Zofran despite having Nausea and vomiting. - Constitutional Vitals: Temp Pulse Resp BP Pulse Ox 98.1 F 93 18 122/73 93 L 05/26/16 08:00 05/26/16 08:00 05/26/16 08:00 05/26/16 08:00 05/26/16 08:00 General appearance: Present: A&O X 2, morbidly obese, pleasant, no acute distress - Head Head exam: Present: atraumatic, normocephalic - Eye Eye exam: Present: PERRL, conjuntiva pink, sclera anicteric Pupils: Present: PERRL - Neck Neck exam general surgery: Present: supple, trachea midline. Absent: lymphadenopathy - Respiratory Respiratory exam: Present: CTAB. Absent: accessory muscle use, rales, rhonchi, wheezes - Cardiovascular Cardiovascular exam: Present: RRR, +S1, +S2. Absent: diastolic murmur, gallop, rubs, systolic murmur - GI/Abdominal GI/Abdominal exam: Present: normal bowel sounds, soft, no peritoneal signs. Absent: distended, tenderness Additional comments: obese - Extremities Exam Additional comments: Sol has large wounds of the bilateral lower extremities. Wounds are deep extendiing into the musculature. I do not appreciate any tunneling. mildly malodorous.Some purulent drainage. some granulation tissue present. Erythema extending above the area of the wound and into the thigh. very difficult to examine as patient refuses to let me do a throughou exam. Complains of pain with flexion of the left knee. pain with palpation of the inner right thigh. Internal Medicine: Result - Labs CBC & Chem 7: 05/26/16 03:50 05/26/16 03:50 Labs: Short CBC 05/24/16 05/26/16 Range/Units 23:34 03:50 WBC 14.9 H (4.3-11.1) K/mcL Hgb 7.6 L 9.2 L D (12.9-16.9) g/dL Hct 26.9 L 31.2 L (37.5-50.1) % Plt Count 397 (140-400) K/mcL Neutrophils # 9.5 H (1.6-8.9) K/mcL BMP 05/26/16 03:50 Sodium 141 Potassium 4.4 Chloride 104 Carbon Dioxide 29 BUN 15 Creatinine 0.70 L Glucose 105 H Calcium 8.2 L - ABG Interpretation ABG results: ABG ABG pH 7.45 pH Units (7.32-7.45) 05/24/16 19:25 ABG pCO2 44 mmHg (35-45) 05/24/16 19:25 ABG pO2 90 mmHg (85-104) 05/24/16 19:25 ABG O2 Saturation 97 % (95-98) 05/24/16 19:25 PT/INR, D-dimer PT 12.1 Seconds (9.4-12.1) 05/22/16 22:03 Consult Discharge Plan - Plan Referrals: Evgeny Griffith MD [Primary Care Provider] - <Clancy,Max R - Last Filed: 05/27/16 07:24> Date of Encounter: 05/27/16 - Constitutional Vitals: Temp Pulse Resp BP Pulse Ox 98.2 F 98 18 139/57 97 05/27/16 06:36 05/27/16 06:36 05/27/16 06:36 05/27/16 06:36 05/27/16 06:36 Internal Medicine: Result - Labs CBC & Chem 7: 05/27/16 03:44 05/27/16 03:44 Labs: Short CBC 05/27/16 Range/Units 03:44 WBC 12.8 H (4.3-11.1) K/mcL Hgb 8.2 L (12.9-16.9) g/dL Hct 27.5 L (37.5-50.1) % Plt Count 324 (140-400) K/mcL Neutrophils # 7.6 (1.6-8.9) K/mcL BMP 05/27/16 03:44 Sodium 133 L D Potassium 3.9 Chloride 99 Carbon Dioxide 26 BUN 12 Creatinine 0.55 L Glucose 90 Calcium 7.7 L - ABG Interpretation ABG results: ABG ABG pH 7.45 pH Units (7.32-7.45) 05/24/16 19:25 ABG pCO2 44 mmHg (35-45) 05/24/16 19:25 ABG pO2 90 mmHg (85-104) 05/24/16 19:25 ABG O2 Saturation 97 % (95-98) 05/24/16 19:25 PT/INR, D-dimer PT 12.1 Seconds (9.4-12.1) 05/22/16 22:03 - Impressions Impressions Lower Extremity CT 05/26/16 11:46 IMPRESSION: Diffuse soft tissue and subcutaneous edema with skin thickening of the bilateral lower extremities suggesting cellulitis. Chronic appearing large shallow soft tissue ulceration along the anterior aspect of the right lower leg extending almost to the level of bone. Cortical thickening with mild irregularity of the anteromedial aspect of the right tibia may suggest osteomyelitis. Chronic appearing large soft tissue ulceration along the posteromedial aspect of the left lower leg extending almost to the level of bone distally. Cortical thickening with mild irregularity of the posteromedial aspect of the left tibia may suggest osteomyelitis. Extensive bilateral inguinal and external iliac chain bulky lymphadenopathy suggestive of reactive lymphadenopathy from the chronic bilateral lower extremity cellulitis. Small bilateral knee joint effusions with patellofemoral compartmental osteoarthritis bilaterally, left greater than right. D/ / 05/26/2016 14:00:12 Cedrick Wong MD / gabriel Interpreting Provider: Cedrick Wong MD Lower Extremity CT 05/26/16 11:46 IMPRESSION: Diffuse soft tissue and subcutaneous edema with skin thickening of the bilateral lower extremities suggesting cellulitis. Chronic appearing large shallow soft tissue ulceration along the anterior aspect of the right lower leg extending almost to the level of bone. Cortical thickening with mild irregularity of the anteromedial aspect of the right tibia may suggest osteomyelitis. Chronic appearing large soft tissue ulceration along the posteromedial aspect of the left lower leg extending almost to the level of bone distally. Cortical thickening with mild irregularity of the posteromedial aspect of the left tibia may suggest osteomyelitis. Extensive bilateral inguinal and external iliac chain bulky lymphadenopathy suggestive of reactive lymphadenopathy from the chronic bilateral lower extremity cellulitis. Small bilateral knee joint effusions with patellofemoral compartmental osteoarthritis bilaterally, left greater than right. D/ / 05/26/2016 14:00:12 Cedrick Wong MD / gabriel Interpreting Provider: Cedrick Wong MD - Attending Attestation I examined this patient and my medical decision-making was reviewed with the ENVIRONMENTAL AID/PA/Advanced Practice Nurse/Resident Physician. I agree with the documented findings, disposition and treatment plan as described except to the extent set forth below. Switch from meropenem to zosyn, continue monitoring. Wound care.
[2016-05-26] MEDS ORDERED: Aminoglycoside Consult 1 EACH MC ONE (10:42)
[2016-05-26] MEDS: Acetaminophen 325 MG TABLET PO PRN (21:17)
[2016-05-26] MEDS: Piperacillin/Tazobactam 3.375 GM in D5% in Water (Mini-Bag+) 100 ML IVPB SCH (21:18)
[2016-05-26] MEDS: Ringers Solution, Lactated 1,000 ML IVC SCH (21:18)
[2016-05-27 04:30] LABS: Basophils # 0.1 K/mcL (0.0-0.2); Basophils % 0.5 %; Eosinophils # 1.3 K/mcL (0.0-0.6); Eosinophils % 10.1 %; Hematocrit 27.5 % (37.5-50.1); Hemoglobin 8.2 g/dL (12.9-16.9); Lymphocytes # 2.1 K/mcL (0.6-4.6); Lymphocytes % 16.5 %; Mean Corpuscular HGB Conc 29.8 g/dL (31.6-35.5); Mean Corpuscular Hemoglobin 24.1 pg (28.0-33.3); Mean Corpuscular Volume 80.9 fL (83.0-100.0); Mean Platelet Volume 10.8 fL (9.4-12.4); Monocytes # 1.6 K/mcL (0.0-1.3); Monocytes % 12.2 %; Neutrophils # 7.6 K/mcL (1.6-8.9); Platelet Count 324 K/mcL (140-400); Red Cell Distribution Width 18.6 % (11.5-14.5); Segmented Neutrophils % 59.7 %
[2016-05-27 05:02] LABS: BUN/Creatinine Ratio 22 (6-26); Blood Urea Nitrogen 12 mg/dL (8-26); Calcium 7.7 mg/dL (8.6-10.8); Carbon Dioxide 26 mEq/L (19-29); Chloride 99 mEq/L (98-109); Glucose 90 mg/dL (70-99); Magnesium 1.5 mg/dL (1.6-2.6); Osmolality,Calculated 275 (280-300); Potassium 3.9 mEq/L (3.5-4.5); eGFR For African Americans > 60 (> 60); eGFR For Non-African Americans > 60 (> 60)
[2016-05-27 05:04] LABS: Sodium 133 mEq/L (136-145)
[2016-05-27] MEDS: Ipratropium/Albuterol Neb 3 ML IH SCH ×4 (05:23→21:51)
[2016-05-27] MEDS: Piperacillin/Tazobactam 3.375 GM in D5% in Water (Mini-Bag+) 100 ML IVPB SCH ×3 (05:39→22:27)
[2016-05-27] MEDS: Lactobacillus 1 EACH CAP.SPRINK PO SCH ×2 (08:57→22:26)
[2016-05-27] MEDS: Famotidine 20 MG TABLET PO SCH ×2 (08:57→22:27)
[2016-05-27] MEDS: Furosemide 20 MG TABLET PO SCH (08:57)
[2016-05-27] MEDS: Zinc Sulfate 220 MG CAPSULE PO SCH (08:57)
[2016-05-27] MEDS: Magnesium Oxide 400 MG TABLET PO SCH ×2 (08:57→22:27)
[2016-05-27] MEDS: Ascorbic Acid 500 MG TABLET PO SCH (08:58)
[2016-05-27] MEDS: Multivit/Ca/Min/Fe/FA 1 TAB TABLET PO SCH (08:58)
[2016-05-27] MEDS ORDERED: Petrolatum, white 28.35 GM TUBE TP SCH (09:00)
[2016-05-27] MEDS: Gentamicin Oint 15 GM TUBE TP SCH (09:03)
[2016-05-27] MEDS: Petrolatum, White OINT.PACK TP SCH ×2 (10:01→22:27)
[2016-05-27] MEDS ORDERED: Vancomycin 1,500 MG in D5% in Water 250 ML IVPB SCH (12:00)
[2016-05-27] MEDS: Ringers Solution, Lactated 1,000 ML IVC SCH (12:37)
[2016-05-27 12:44] LABS: C-Reactive Protein 83 mg/L (Less than 5)
--- NOTE | 2016-05-27 13:49 | Internal Med Progress Note ---
<Ira Jon Steve - Last Filed: 05/27/16 13:47> Date of Encounter: 05/27/16 Time of Encounter: 11:30 - Assessment and plan (1) Sepsis Current Visit: Yes Status: Acute Assessment and plan: Patient meets sepsis criteria with WBC of 22, T 100.6, and tachycardia. Most likely source is secondary to his chronic wounds of the lower extremities. CT of the chest was performed and dose not show any acute processes. Blood cultures have been collected and are pending. UA was ordered and is pending. No organ dysfunction and normal lactic acid so this is not severe sepsis. Currently he is on Meropenem and Vancomycin. we will continue as this is good coverage. We can tailor once we have culture results. Duration of antibiotics will depend on clinical course. However most likely he will need a long course of antibiotics given chronic wounds and possible chronic osteomyelitis seen on MRI from 05/18/16 with overlying chronic wounds of the lower extremities. however inflammatory markers are quite low. I have also requested culture results and records form [facility] as well. 05/24/16 No major events overnight. Still meets SIRS criteria with T 100.9 and Leukocytosis. However leukocytosis is trending down. I spoke with Dr. Terrazas over the phone. He has been seeing this patient for many years. He is currently trying to get the patient an appointment at either the [facility] or [facility] in [place] to be evaluated for potential skin grafts. We will continue current antibiotics and follow with culture results. Once the patient is more stable will plan to DC with close follow up with Dr. Terrazas. 05/25/16 Patient no longer meets SIRS criteria this AM Leukocytosis has resolved blood cultures show no growth to date. On Meropenem and Vancomycin Consider deescalating antibiotics in the AM. 05/26/16 Patient has had return of fever and WBC trending up. With tachycardia. Meets Sepsis criteria again. We have redrawn blood cultures. Patient not tolerating meropenem due to burning. we will switch to Zosyn. We had dicontinued vancomycin. However I spoke with pharmacy and he should still be therapeutic. will get a CT of the Lower extremities to rule out intramuscular abscess. 05/27/16 Patient afebrile, max HR 106, WBC trending down. Continues to meet sepsis criteria. Blood cultures are pending. Respiratory viral panel negative. CT Right lower extremity with thickening and sclerosis of the anterior tibial cortex with subtle indistinctness, small right knee joint effusion, no drainable fluid collection CT left lower extremity with thickening and sclerosis of the posteromedial tibial cortex with subtle indistinctness, small left knee joint effusion, no drainable fluid collection These findings are comparable to MRI performed 05/18/16 ESR today 87, up from 16 four days ago CRP today 83, 62 from 16 four days ago Continue Zosyn Will restart Vanc for treatment of cellulitis I spoke to Dr. Terrazas in great detail at 11:49am regarding this patient. He has been treating wounds on patient's lower extremites for years. He states that he does not believe that patient has osteomyelitis. Qualifiers: Qualified Code(s): A41.9 - Sepsis, unspecified organism (2) Cellulitis Current Visit: Yes Status: Acute Assessment and plan: as stated above. Qualifiers: Qualified Code(s): L03.90 - Cellulitis, unspecified (3) Chronic wound of extremity Current Visit: Yes Status: Acute Assessment and plan: as stated above wound care consulted (4) Anemia Current Visit: Yes Status: Acute Assessment and plan: patient has chronic anemia and iron deficiency. significant bleeding from wounds per sisters account. May require iron infusion and endoscopy in the future. However no active bleeding at this time. additionally he likely has some chronic anemia from chronic infections. No IV iron at this time as he currently has an active infection. Hg trending down with Hg 7.2 this AM transfuse one unit PRBC 05/26/15 s/P 1 unit PRBC. stable Now Hg 9.2 continue to monitor 05/27/16 Hb 8.2 this am will continue to monitor Qualifiers: Qualified Code(s): D64.9 - Anemia, unspecified (5) Pulmonary hypertension Current Visit: Yes Status: Acute Assessment and plan: Severe Likely secondary to JOHN follow with pulmonology as outpatient (6) Hyponatremia Current Visit: Yes Status: Acute Assessment and plan: Urine sodium and urine osmolality ordered Fluid restriction (7) Hypomagnesemia Current Visit: Yes Status: Acute Assessment and plan: Replaced continue to monitor (8) Metabolic alkalosis Current Visit: Yes Status: Resolved Assessment and plan: resolved (9) Prader-Willi syndrome Current Visit: Yes Status: Acute (10) DVT prophylaxis Current Visit: Yes Status: Acute Assessment and plan: will hold off on heparin as he is anemic and requiring transfusions. Also had recent GI bleed and has not had endoscopy since that time. With chronic lower extremity wounds compression devices are not able to be placed at this time. - Time Spent With Patient 25 - 35 minutes (30 minutes including time with patient and time coordinating care) - Subjective Interval history: Mr. Junior is pretending to be asleep during the patient interview. He has recently had his lower leg bandages replaced. - Constitutional Vitals: Temp Pulse Resp BP Pulse Ox 98.4 F 100 20 104/61 94 L 05/27/16 11:53 05/27/16 11:53 05/27/16 11:53 05/27/16 11:53 05/27/16 11:53 General appearance: Present: A&O X 2, morbidly obese, pleasant, no acute distress - Head Head exam: Present: atraumatic, normocephalic - Eye Eye exam: Present: PERRL, conjuntiva pink, sclera anicteric - Neck Neck exam general surgery: Present: supple, trachea midline - Respiratory Respiratory exam: Present: CTAB. Absent: accessory muscle use, rales, rhonchi, wheezes - Cardiovascular Cardiovascular exam: Present: RRR, +S1, +S2. Absent: diastolic murmur, gallop, rubs, systolic murmur - GI/Abdominal GI/Abdominal exam: Present: normal bowel sounds, soft, no peritoneal signs. Absent: distended, tenderness - Extremities Exam Extremities exam: Present: calf tenderness, pedal edema, warm Additional comments: Patient has dressings on bilateral lower extremities. Above dressings, legs are edematous with 1+ pitting to thighs bilaterally. Left leg: erythema appears at knee and extends to middle of upper leg. Right leg: erythema surrounding and just superior to knee joint. - Neurological Exam Neurological exam: Present: CN II-XII intact, oriented X3, no focal deficits. Absent: pronater drift, facial droop, speech deficit - Skin Skin exam: Present: dry, intact Internal Medicine: Result - Labs CBC & Chem 7: 05/27/16 03:44 05/27/16 03:44 Labs: Short CBC 05/27/16 Range/Units 03:44 WBC 12.8 H (4.3-11.1) K/mcL Hgb 8.2 L (12.9-16.9) g/dL Hct 27.5 L (37.5-50.1) % Plt Count 324 (140-400) K/mcL Neutrophils # 7.6 (1.6-8.9) K/mcL BMP 05/27/16 03:44 Sodium 133 L D Potassium 3.9 Chloride 99 Carbon Dioxide 26 BUN 12 Creatinine 0.55 L Glucose 90 Calcium 7.7 L - ABG Interpretation ABG results: ABG ABG pH 7.45 pH Units (7.32-7.45) 05/24/16 19:25 ABG pCO2 44 mmHg (35-45) 05/24/16 19:25 ABG pO2 90 mmHg (85-104) 05/24/16 19:25 ABG O2 Saturation 97 % (95-98) 05/24/16 19:25 PT/INR, D-dimer PT 12.1 Seconds (9.4-12.1) 05/22/16 22:03 - Impressions Impressions Lower Extremity CT 05/26/16 11:46 IMPRESSION: Diffuse soft tissue and subcutaneous edema with skin thickening of the bilateral lower extremities suggesting cellulitis. Chronic appearing large shallow soft tissue ulceration along the anterior aspect of the right lower leg extending almost to the level of bone. Cortical thickening with mild irregularity of the anteromedial aspect of the right tibia may suggest osteomyelitis. Chronic appearing large soft tissue ulceration along the posteromedial aspect of the left lower leg extending almost to the level of bone distally. Cortical thickening with mild irregularity of the posteromedial aspect of the left tibia may suggest osteomyelitis. Extensive bilateral inguinal and external iliac chain bulky lymphadenopathy suggestive of reactive lymphadenopathy from the chronic bilateral lower extremity cellulitis. Small bilateral knee joint effusions with patellofemoral compartmental osteoarthritis bilaterally, left greater than right. D/ / 05/26/2016 14:00:12 Cedrick Wong MD / gabriel Interpreting Provider: Cedrick Wong MD Lower Extremity CT 05/26/16 11:46 IMPRESSION: Diffuse soft tissue and subcutaneous edema with skin thickening of the bilateral lower extremities suggesting cellulitis. Chronic appearing large shallow soft tissue ulceration along the anterior aspect of the right lower leg extending almost to the level of bone. Cortical thickening with mild irregularity of the anteromedial aspect of the right tibia may suggest osteomyelitis. Chronic appearing large soft tissue ulceration along the posteromedial aspect of the left lower leg extending almost to the level of bone distally. Cortical thickening with mild irregularity of the posteromedial aspect of the left tibia may suggest osteomyelitis. Extensive bilateral inguinal and external iliac chain bulky lymphadenopathy suggestive of reactive lymphadenopathy from the chronic bilateral lower extremity cellulitis. Small bilateral knee joint effusions with patellofemoral compartmental osteoarthritis bilaterally, left greater than right. D/ / 05/26/2016 14:00:12 Cedrick Wong MD / gabriel Interpreting Provider: Cedrick Wong MD Consult Discharge Plan - Plan Referrals: Evgeny Griffith MD [Primary Care Provider] - - Attending Attestation I examined this patient and my medical decision-making was reviewed with the FEED PREPARATION OPERATOR/PA/Advanced Practice Nurse/Resident Physician. I agree with the documented findings, disposition and treatment plan as described except to the extent set forth below. <Max Clancy - Last Filed: 05/27/16 16:45> Date of Encounter: 05/27/16 - Constitutional Vitals: Temp Pulse Resp BP Pulse Ox 98.4 F 100 20 104/61 94 L 05/27/16 11:53 05/27/16 11:53 05/27/16 11:53 05/27/16 11:53 05/27/16 11:53 Internal Medicine: Result - Labs CBC & Chem 7: 05/27/16 03:44 05/27/16 03:44 Labs: Short CBC 05/27/16 Range/Units 03:44 WBC 12.8 H (4.3-11.1) K/mcL Hgb 8.2 L (12.9-16.9) g/dL Hct 27.5 L (37.5-50.1) % Plt Count 324 (140-400) K/mcL Neutrophils # 7.6 (1.6-8.9) K/mcL BMP 05/27/16 03:44 Sodium 133 L D Potassium 3.9 Chloride 99 Carbon Dioxide 26 BUN 12 Creatinine 0.55 L Glucose 90 Calcium 7.7 L - ABG Interpretation ABG results: ABG ABG pH 7.45 pH Units (7.32-7.45) 05/24/16 19:25 ABG pCO2 44 mmHg (35-45) 05/24/16 19:25 ABG pO2 90 mmHg (85-104) 05/24/16 19:25 ABG O2 Saturation 97 % (95-98) 05/24/16 19:25 PT/INR, D-dimer PT 12.1 Seconds (9.4-12.1) 05/22/16 22:03 - Impressions Impressions Lower Extremity CT 05/26/16 11:46 IMPRESSION: Diffuse soft tissue and subcutaneous edema with skin thickening of the bilateral lower extremities suggesting cellulitis. Chronic appearing large shallow soft tissue ulceration along the anterior aspect of the right lower leg extending almost to the level of bone. Cortical thickening with mild irregularity of the anteromedial aspect of the right tibia may suggest osteomyelitis. Chronic appearing large soft tissue ulceration along the posteromedial aspect of the left lower leg extending almost to the level of bone distally. Cortical thickening with mild irregularity of the posteromedial aspect of the left tibia may suggest osteomyelitis. Extensive bilateral inguinal and external iliac chain bulky lymphadenopathy suggestive of reactive lymphadenopathy from the chronic bilateral lower extremity cellulitis. Small bilateral knee joint effusions with patellofemoral compartmental osteoarthritis bilaterally, left greater than right. D/ / 05/26/2016 14:00:12 Cedrick Wong MD / gabriel Interpreting Provider: Cedrick Wong MD Lower Extremity CT 05/26/16 11:46 IMPRESSION: Diffuse soft tissue and subcutaneous edema with skin thickening of the bilateral lower extremities suggesting cellulitis. Chronic appearing large shallow soft tissue ulceration along the anterior aspect of the right lower leg extending almost to the level of bone. Cortical thickening with mild irregularity of the anteromedial aspect of the right tibia may suggest osteomyelitis. Chronic appearing large soft tissue ulceration along the posteromedial aspect of the left lower leg extending almost to the level of bone distally. Cortical thickening with mild irregularity of the posteromedial aspect of the left tibia may suggest osteomyelitis. Extensive bilateral inguinal and external iliac chain bulky lymphadenopathy suggestive of reactive lymphadenopathy from the chronic bilateral lower extremity cellulitis. Small bilateral knee joint effusions with patellofemoral compartmental osteoarthritis bilaterally, left greater than right. D/ / 05/26/2016 14:00:12 Cedrick Wong MD / gabriel Interpreting Provider: Cedrick Wong MD - Attending Attestation I examined this patient and my medical decision-making was reviewed with the FEED PREPARATION OPERATOR/PA/Advanced Practice Nurse/Resident Physician. I agree with the documented findings, disposition and treatment plan as described except to the extent set forth below. Agree with DR. Jon, needs iv antibiotics, including vancomycin. High risk, need to monitor vancomycin levels and renal function tests. Refusing PT eval. D/W patient and his sister at length.
[2016-05-27] MEDS: Vancomycin 1,500 MG in D5% in Water 250 ML IVPB SCH (17:08)
[2016-05-28] MEDS: Ipratropium/Albuterol Neb 3 ML IH SCH ×6 (04:35→22:28)
[2016-05-28] MEDS: Vancomycin 1,500 MG in D5% in Water 250 ML IVPB SCH (04:47)
[2016-05-28] MEDS: Piperacillin/Tazobactam 3.375 GM in D5% in Water (Mini-Bag+) 100 ML IVPB SCH ×2 (04:48→13:40)
[2016-05-28] MEDS: Petrolatum, White OINT.PACK TP SCH (08:26)
[2016-05-28] MEDS: Multivit/Ca/Min/Fe/FA 1 TAB TABLET PO SCH (08:27)
[2016-05-28] MEDS: Gentamicin Oint 15 GM TUBE TP SCH (08:27)
[2016-05-28] MEDS: Magnesium Oxide 400 MG TABLET PO SCH (08:27)
[2016-05-28] MEDS: Lactobacillus 1 EACH CAP.SPRINK PO SCH (08:27)
[2016-05-28] MEDS: Ascorbic Acid 500 MG TABLET PO SCH (08:27)
[2016-05-28] MEDS: Famotidine 20 MG TABLET PO SCH (08:27)
[2016-05-28] MEDS: Zinc Sulfate 220 MG CAPSULE PO SCH (08:27)
[2016-05-28] MEDS: Furosemide 20 MG TABLET PO SCH (08:27)
[2016-05-28 10:21] LABS: Basophils # 0.1 K/mcL (0.0-0.2); Basophils % 0.6 %; Eosinophils # 1.4 K/mcL (0.0-0.6); Eosinophils % 13.8 %; Hematocrit 31.1 % (37.5-50.1); Hemoglobin 9.1 g/dL (12.9-16.9); Immature Granulocytes % 0.8 % (0-4); Lymphocytes # 1.4 K/mcL (0.6-4.6); Lymphocytes % 14.2 %; Mean Corpuscular HGB Conc 29.3 g/dL (31.6-35.5); Mean Corpuscular Hemoglobin 23.7 pg (28.0-33.3); Mean Platelet Volume 10.3 fL (9.4-12.4); Monocytes % 10.3 %; Platelet Count 348 K/mcL (140-400); Red Blood Count 3.84 M/mcL (4.19-5.50); Segmented Neutrophils % 60.3 %
[2016-05-28 10:36] LABS: BUN/Creatinine Ratio 16 (6-26); Blood Urea Nitrogen 11 mg/dL (8-26); Calcium 8.1 mg/dL (8.6-10.8); Carbon Dioxide 26 mEq/L (19-29); Chloride 98 mEq/L (98-109); Glucose 104 mg/dL (70-99); Osmolality,Calculated 276 (280-300); Potassium 4.1 mEq/L (3.5-4.5); Sodium 133 mEq/L (136-145); eGFR For African Americans > 60 (> 60); eGFR For Non-African Americans > 60 (> 60)
[2016-05-28 10:41] LABS: Magnesium 1.7 mg/dL (1.6-2.6)
--- NOTE | 2016-05-28 12:41 | Internal Med Progress Note ---
<Ira Jon Steve - Last Filed: 05/28/16 16:20> Date of Encounter: 05/28/16 Time of Encounter: 11:41 - Assessment and plan (1) Sepsis Current Visit: Yes Status: Acute Assessment and plan: Patient meets sepsis criteria with WBC of 22, T 100.6, and tachycardia. Most likely source is secondary to his chronic wounds of the lower extremities. CT of the chest was performed and dose not show any acute processes. Blood cultures have been collected and are pending. UA was ordered and is pending. No organ dysfunction and normal lactic acid so this is not severe sepsis. Currently he is on Meropenem and Vancomycin. we will continue as this is good coverage. We can tailor once we have culture results. Duration of antibiotics will depend on clinical course. However most likely he will need a long course of antibiotics given chronic wounds and possible chronic osteomyelitis seen on MRI from 05/18/16 with overlying chronic wounds of the lower extremities. however inflammatory markers are quite low. I have also requested culture results and records form [facility] as well. 05/24/16 No major events overnight. Still meets SIRS criteria with T 100.9 and Leukocytosis. However leukocytosis is trending down. I spoke with Dr. Terrazas over the phone. He has been seeing this patient for many years. He is currently trying to get the patient an appointment at either the [facility] or [facility] in [place] to be evaluated for potential skin grafts. We will continue current antibiotics and follow with culture results. Once the patient is more stable will plan to DC with close follow up with Dr. Terrazas. 05/25/16 Patient no longer meets SIRS criteria this AM Leukocytosis has resolved blood cultures show no growth to date. On Meropenem and Vancomycin Consider deescalating antibiotics in the AM. 05/26/16 Patient has had return of fever and WBC trending up. With tachycardia. Meets Sepsis criteria again. We have redrawn blood cultures. Patient not tolerating meropenem due to burning. we will switch to Zosyn. We had dicontinued vancomycin. However I spoke with pharmacy and he should still be therapeutic. will get a CT of the Lower extremities to rule out intramuscular abscess. 05/27/16 Patient afebrile, max HR 106, WBC trending down. Continues to meet sepsis criteria. Blood cultures are pending. Respiratory viral panel negative. CT Right lower extremity with thickening and sclerosis of the anterior tibial cortex with subtle indistinctness, small right knee joint effusion, no drainable fluid collection CT left lower extremity with thickening and sclerosis of the posteromedial tibial cortex with subtle indistinctness, small left knee joint effusion, no drainable fluid collection These findings are comparable to MRI performed 05/18/16 ESR today 87, up from 16 four days ago CRP today 83, 62 from 16 four days ago Continue Zosyn Will restart Vanc for treatment of cellulitis I spoke to Dr. Terrazas in great detail at 11:49am regarding this patient. He has been treating wounds on patient's lower extremites for years. He states that he does not believe that patient has osteomyelitis. 05/28/16 Patient afebrile, no tachycardia, leukocytosis resolved, however trending up to >130 from 87 yesterday, CRP 77 today from 83 yesterday. Does not meet sepsis criteria. Blood cultures are negative. Respiratory viral panel negative. CT Right lower extremity with thickening and sclerosis of the anterior tibial cortex with subtle indistinctness, small right knee joint effusion, no drainable fluid collection. CT left lower extremity with thickening and sclerosis of the posteromedial tibial cortex with subtle indistinctness, small left knee joint effusion, no drainable fluid collection. CT findings are comparable to MRI performed 05/18/16 ESR today 87, up from 16 four days ago CRP today 83, 62 from 16 four days ago Continue Zosyn Continue Vanc for treatment of cellulitis Qualifiers: Sepsis type: sepsis due to unspecified organism Qualified Code(s): A41.9 - Sepsis, unspecified organism (2) Cellulitis Current Visit: Yes Status: Acute Assessment and plan: As stated above. Qualifiers: Site of cellulitis: extremity Site of cellulitis of extremity: lower extremity Laterality: unspecified laterality Qualified Code(s): L03.119 - Cellulitis of unspecified part of limb (3) Chronic wound of extremity Current Visit: Yes Status: Acute Assessment and plan: as stated above wound care consulted (4) Edema of left lower extremity Current Visit: Yes Status: Acute Assessment and plan: LR at 50ml/hr discontinued yesterday Patient with protein-calorie malnutrition with albumin 1.9 IV albumin Will increase Lasix to 40mg IV (5) Edema of right lower extremity Current Visit: Yes Status: Acute Assessment and plan: Plan as above (6) Anemia Current Visit: Yes Status: Acute Assessment and plan: patient has chronic anemia and iron deficiency. significant bleeding from wounds per sisters account. May require iron infusion and endoscopy in the future. However no active bleeding at this time. additionally he likely has some chronic anemia from chronic infections. No IV iron at this time as he currently has an active infection. Hg trending down with Hg 7.2 this AM transfuse one unit PRBC 05/26/15 s/P 1 unit PRBC. stable Now Hg 9.2 continue to monitor 05/27/16 Hb 8.2 this am will continue to monitor 05/28/16 Hb 9.1 this am up following holding fluids. Will continue to monitor. Qualifiers: Qualified Code(s): D64.9 - Anemia, unspecified (7) Pulmonary hypertension Current Visit: Yes Status: Acute Assessment and plan: Severe Likely secondary to JOHN follow with pulmonology as outpatient (8) Hyponatremia Current Visit: Yes Status: Acute Assessment and plan: Urine sodium and urine osmolality ordered. However, patient will not consent to even urinate in urinal for collection of specimen. 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 Also had recent GI bleed and has not had endoscopy since that time. With chronic lower extremity wounds compression devices are not able to be placed at this time. - Time Spent With Patient 25 - 35 minutes (30 minutes including time with patient and time coordinating care) - Subjective Interval history: Mr. Junior states that he is doing well today. He is complaining of an itchy rash on his chest that he has excoriated. He states that he is breathing well today. He continues to have pain in bilateral lower extremities. - Constitutional Vitals: Temp Pulse Resp BP Pulse Ox 97.4 F L 87 24 98/61 96 05/28/16 11:57 05/28/16 11:57 05/28/16 11:57 05/28/16 11:57 05/28/16 11:57 General appearance: Present: A&O X 2, morbidly obese, pleasant, no acute distress - Head Head exam: Present: atraumatic, normocephalic - Eye Eye exam: Present: PERRL, conjuntiva pink, sclera anicteric Pupils: Present: PERRL - Neck Neck exam general surgery: Present: supple, trachea midline - Respiratory Respiratory exam: Present: CTAB. Absent: accessory muscle use, rales, rhonchi, wheezes - Cardiovascular Cardiovascular exam: Present: RRR, +S1, +S2. Absent: diastolic murmur, gallop, rubs, systolic murmur - GI/Abdominal GI/Abdominal exam: Present: normal bowel sounds, soft, no peritoneal signs. Absent: distended, tenderness - Extremities Exam Extremities exam: Present: pedal edema (3+ bilateral non-pitting edema increased from yesterday. edema is tense and now extense to inquinal folds.), tenderness (exquitsite tenderness), warm, radial pulses palpable and symetrical. Absent: calf tenderness, cyanotic Additional comments: Bilateral lower extremities with dressings in place. Left leg: erythema with warmth extends from knee and extends to upper leg. Right leg: erythema with warmth extends from knee to middle of upper leg. - Neurological Exam Neurological exam: Present: CN II-XII intact, oriented X3, no focal deficits. Absent: pronater drift, facial droop, speech deficit - Skin Skin exam: Present: dry, intact Internal Medicine: Result - Labs CBC & Chem 7: 05/28/16 10:12 05/28/16 10:12 Labs: Short CBC 05/28/16 Range/Units 10:12 WBC 9.9 (4.3-11.1) K/mcL Hgb 9.1 L (12.9-16.9) g/dL Hct 31.1 L (37.5-50.1) % Plt Count 348 (140-400) K/mcL Neutrophils # 6.0 (1.6-8.9) K/mcL BMP 05/27/16 05/28/16 03:44 10:12 Sodium 133 L D 133 L Potassium 3.9 4.1 Chloride 99 98 Carbon Dioxide 26 26 BUN 12 11 Creatinine 0.55 L 0.67 L Glucose 90 104 H Calcium 7.7 L 8.1 L - ABG Interpretation ABG results: ABG ABG pH 7.45 pH Units (7.32-7.45) 05/24/16 19:25 ABG pCO2 44 mmHg (35-45) 05/24/16 19:25 ABG pO2 90 mmHg (85-104) 05/24/16 19:25 ABG O2 Saturation 97 % (95-98) 05/24/16 19:25 PT/INR, D-dimer PT 12.1 Seconds (9.4-12.1) 05/22/16 22:03 - Impressions Impressions Lower Extremity CT 05/26/16 11:46 IMPRESSION: Diffuse soft tissue and subcutaneous edema with skin thickening of the bilateral lower extremities suggesting cellulitis. Chronic appearing large shallow soft tissue ulceration along the anterior aspect of the right lower leg extending almost to the level of bone. Cortical thickening with mild irregularity of the anteromedial aspect of the right tibia may suggest osteomyelitis. Chronic appearing large soft tissue ulceration along the posteromedial aspect of the left lower leg extending almost to the level of bone distally. Cortical thickening with mild irregularity of the posteromedial aspect of the left tibia may suggest osteomyelitis. Extensive bilateral inguinal and external iliac chain bulky lymphadenopathy suggestive of reactive lymphadenopathy from the chronic bilateral lower extremity cellulitis. Small bilateral knee joint effusions with patellofemoral compartmental osteoarthritis bilaterally, left greater than right. D/ / 05/26/2016 14:00:12 Cedrick Wong MD / [email or web address] Interpreting Provider: Cedrick Wong MD Lower Extremity CT 05/26/16 11:46 IMPRESSION: Diffuse soft tissue and subcutaneous edema with skin thickening of the bilateral lower extremities suggesting cellulitis. Chronic appearing large shallow soft tissue ulceration along the anterior aspect of the right lower leg extending almost to the level of bone. Cortical thickening with mild irregularity of the anteromedial aspect of the right tibia may suggest osteomyelitis. Chronic appearing large soft tissue ulceration along the posteromedial aspect of the left lower leg extending almost to the level of bone distally. Cortical thickening with mild irregularity of the posteromedial aspect of the left tibia may suggest osteomyelitis. Extensive bilateral inguinal and external iliac chain bulky lymphadenopathy suggestive of reactive lymphadenopathy from the chronic bilateral lower extremity cellulitis. Small bilateral knee joint effusions with patellofemoral compartmental osteoarthritis bilaterally, left greater than right. D/ / 05/26/2016 14:00:12 Cedrick Wong MD / [email or web address] Interpreting Provider: Cedrick Wong MD Consult Discharge Plan - Plan Referrals: Evgeny Griffith MD [Primary Care Provider] - - Attending Attestation I examined this patient and my medical decision-making was reviewed with the GENERAL LOT ATTENDANT/PA/Advanced Practice Nurse/Resident Physician. I agree with the documented findings, disposition and treatment plan as described except to the extent set forth below. <Max Clancy - Last Filed: 05/28/16 18:16> Date of Encounter: 05/28/16 - Constitutional Vitals: Temp Pulse Resp BP Pulse Ox 98.3 F 81 20 117/74 97 05/28/16 15:03 05/28/16 15:03 05/28/16 16:29 05/28/16 15:03 05/28/16 16:29 Internal Medicine: Result - Labs CBC & Chem 7: 05/28/16 10:12 05/28/16 10:12 Labs: Short CBC 05/28/16 Range/Units 10:12 WBC 9.9 (4.3-11.1) K/mcL Hgb 9.1 L (12.9-16.9) g/dL Hct 31.1 L (37.5-50.1) % Plt Count 348 (140-400) K/mcL Neutrophils # 6.0 (1.6-8.9) K/mcL BMP 05/28/16 10:12 Sodium 133 L Potassium 4.1 Chloride 98 Carbon Dioxide 26 BUN 11 Creatinine 0.67 L Glucose 104 H Calcium 8.1 L - ABG Interpretation ABG results: ABG ABG pH 7.45 pH Units (7.32-7.45) 05/24/16 19:25 ABG pCO2 44 mmHg (35-45) 05/24/16 19:25 ABG pO2 90 mmHg (85-104) 05/24/16 19:25 ABG O2 Saturation 97 % (95-98) 05/24/16 19:25 PT/INR, D-dimer PT 12.1 Seconds (9.4-12.1) 05/22/16 22:03 - Attending Attestation I examined this patient and my medical decision-making was reviewed with the GENERAL LOT ATTENDANT/PA/Advanced Practice Nurse/Resident Physician. I agree with the documented findings, disposition and treatment plan as described except to the extent set forth below. Aspiration PNA and cellulitis, D/W Dr. Terrazas about the case, as per him unlikely OM in despite of high ESR. Etiology of high esr possibly PNA. Continue with both vanc and zosyn. Hypoalbuminemia and edema noted, will give iv albumin and lasix today and monitor response.
[2016-05-28] MEDS ORDERED: Albumin 25% 25gram/100mL 25 GM/100 ML IV.SOLN IVPB ONE (16:15)
[2016-05-28] MEDS ORDERED: Furosemide 40 MG/4 ML VIAL IVP ONE (16:18)
[2016-05-28] MEDS ORDERED: Vancomycin 1,000 MG in D5% in Water 250 ML IVPB SCH (16:30)
[2016-05-29] MEDS: Lactobacillus 1 EACH CAP.SPRINK PO SCH ×3 (00:07→21:39)
[2016-05-29] MEDS: Famotidine 20 MG TABLET PO SCH ×3 (00:07→21:38)
[2016-05-29] MEDS: Magnesium Oxide 400 MG TABLET PO SCH ×2 (00:07→09:13)
[2016-05-29] MEDS: Piperacillin/Tazobactam 3.375 GM in D5% in Water (Mini-Bag+) 100 ML IVPB SCH ×5 (00:08→21:20)
[2016-05-29] MEDS: Petrolatum, White OINT.PACK TP SCH ×4 (00:08→22:04)
[2016-05-29] MEDS: Vancomycin 1,000 MG in D5% in Water 250 ML IVPB SCH ×2 (03:22→14:32)
[2016-05-29 04:52] LABS: Hemoglobin 8.8 g/dL (12.9-16.9); Mean Corpuscular HGB Conc 29.3 g/dL (31.6-35.5); Mean Corpuscular Hemoglobin 24.6 pg (28.0-33.3); Mean Corpuscular Volume 83.8 fL (83.0-100.0); Mean Platelet Volume 12.4 fL (9.4-12.4); Platelet Count 191 K/mcL (140-400); Red Blood Count 3.58 M/mcL (4.19-5.50); Red Cell Distribution Width 19.2 % (11.5-14.5); Segmented Neutrophils % 54.3 %
[2016-05-29 04:53] LABS: Basophils # 0.1 K/mcL (0.0-0.2); Basophils % 0.9 %; Eosinophils # 1.2 K/mcL (0.0-0.6); Eosinophils % 15.1 %; Immature Granulocytes % 0.8 % (0-4); Lymphocytes # 1.4 K/mcL (0.6-4.6); Lymphocytes % 18.1 %; Monocytes # 0.9 K/mcL (0.0-1.3); Monocytes % 10.8 %; Neutrophils # 4.3 K/mcL (1.6-8.9)
[2016-05-29 05:00] LABS: BUN/Creatinine Ratio 17 (6-26); Blood Urea Nitrogen 14 mg/dL (8-26); Calcium 8.1 mg/dL (8.6-10.8); Carbon Dioxide 24 mEq/L (19-29); Chloride 102 mEq/L (98-109); Glucose 94 mg/dL (70-99); Magnesium 2.2 mg/dL (1.6-2.6); Osmolality,Calculated 284 (280-300); Potassium 4.4 mEq/L (3.5-4.5); Sodium 137 mEq/L (136-145); eGFR For African Americans > 60 (> 60); eGFR For Non-African Americans > 60 (> 60)
[2016-05-29] MEDS: Ipratropium/Albuterol Neb 3 ML IH SCH ×4 (05:08→22:03)
[2016-05-29] MEDS: Zinc Sulfate 220 MG CAPSULE PO SCH (09:13)
[2016-05-29] MEDS: Multivit/Ca/Min/Fe/FA 1 TAB TABLET PO SCH (09:13)
[2016-05-29] MEDS: Ascorbic Acid 500 MG TABLET PO SCH (09:13)
[2016-05-29] MEDS: Furosemide 20 MG TABLET PO SCH (09:13)
[2016-05-29] MEDS ORDERED: Furosemide 40 MG/4 ML VIAL IVP ONE (11:36)
[2016-05-29] MEDS ORDERED: Albumin 25% 25gram/100mL 25 GM/100 ML IV.SOLN IVPB ONE (11:36)
--- NOTE | 2016-05-29 12:23 | Internal Med Progress Note ---
<Ira Jon Steve - Last Filed: 05/29/16 15:58> Date of Encounter: 05/29/16 Time of Encounter: 10:20 - Assessment and plan (1) Sepsis Current Visit: Yes Status: Acute Assessment and plan: Patient meets sepsis criteria with WBC of 22, T 100.6, and tachycardia. Most likely source is secondary to his chronic wounds of the lower extremities. CT of the chest was performed and dose not show any acute processes. Blood cultures have been collected and are pending. UA was ordered and is pending. No organ dysfunction and normal lactic acid so this is not severe sepsis. Currently he is on Meropenem and Vancomycin. we will continue as this is good coverage. We can tailor once we have culture results. Duration of antibiotics will depend on clinical course. However most likely he will need a long course of antibiotics given chronic wounds and possible chronic osteomyelitis seen on MRI from 05/18/16 with overlying chronic wounds of the lower extremities. however inflammatory markers are quite low. I have also requested culture results and records form [facility] as well. 05/24/16 No major events overnight. Still meets SIRS criteria with T 100.9 and Leukocytosis. However leukocytosis is trending down. I spoke with Dr. Terrazas over the phone. He has been seeing this patient for many years. He is currently trying to get the patient an appointment at either the [facility] or [facility] in [place] to be evaluated for potential skin grafts. We will continue current antibiotics and follow with culture results. Once the patient is more stable will plan to DC with close follow up with Dr. Terrazas. 05/25/16 Patient no longer meets SIRS criteria this AM Leukocytosis has resolved blood cultures show no growth to date. On Meropenem and Vancomycin Consider deescalating antibiotics in the AM. 05/26/16 Patient has had return of fever and WBC trending up. With tachycardia. Meets Sepsis criteria again. We have redrawn blood cultures. Patient not tolerating meropenem due to burning. we will switch to Zosyn. We had dicontinued vancomycin. However I spoke with pharmacy and he should still be therapeutic. will get a CT of the Lower extremities to rule out intramuscular abscess. 05/27/16 Patient afebrile, max HR 106, WBC trending down. Continues to meet sepsis criteria. Blood cultures are pending. Respiratory viral panel negative. CT Right lower extremity with thickening and sclerosis of the anterior tibial cortex with subtle indistinctness, small right knee joint effusion, no drainable fluid collection CT left lower extremity with thickening and sclerosis of the posteromedial tibial cortex with subtle indistinctness, small left knee joint effusion, no drainable fluid collection These findings are comparable to MRI performed 05/18/16 ESR today 87, up from 16 four days ago CRP today 83, 62 from 16 four days ago Continue Zosyn Will restart Vanc for treatment of cellulitis I spoke to Dr. Terrazas in great detail at 11:49am regarding this patient. He has been treating wounds on patient's lower extremites for years. He states that he does not believe that patient has osteomyelitis. 05/28/16 Patient afebrile, no tachycardia, leukocytosis resolved, however trending up to >130 from 87 yesterday, CRP 77 today from 83 yesterday. Does not meet sepsis criteria. Blood cultures are negative. Respiratory viral panel negative. CT Right lower extremity with thickening and sclerosis of the anterior tibial cortex with subtle indistinctness, small right knee joint effusion, no drainable fluid collection. CT left lower extremity with thickening and sclerosis of the posteromedial tibial cortex with subtle indistinctness, small left knee joint effusion, no drainable fluid collection. CT findings are comparable to MRI performed 05/18/16 ESR today 87, up from 16 four days ago CRP today 83, 62 from 16 four days ago Continue Zosyn Continue Vanc for treatment of cellulitis 05/29/16 Patient afebrile, no tachycardia, leukocytosis resolved, ESR was greater than 130 yesterday. Does not meet sepsis criteria. Blood cultures are negative. Respiratory viral panel negative. CT Right lower extremity with thickening and sclerosis of the anterior tibial cortex with subtle indistinctness, small right knee joint effusion, no drainable fluid collection. CT left lower extremity with thickening and sclerosis of the posteromedial tibial cortex with subtle indistinctness, small left knee joint effusion, no drainable fluid collection. CT findings are comparable to MRI performed 05/18/16 ESR today 87, up from 16 four days ago CRP today 83, 62 from 16 four days ago Continue Zosyn Continue Vanc Qualifiers: Sepsis type: sepsis due to unspecified organism Qualified Code(s): A41.9 - Sepsis, unspecified organism (2) Cellulitis Current Visit: Yes Status: Acute Assessment and plan: As stated above. Qualifiers: Site of cellulitis: extremity Site of cellulitis of extremity: lower extremity Laterality: unspecified laterality Qualified Code(s): L03.119 - Cellulitis of unspecified part of limb (3) Pneumonia Current Visit: No Status: Acute Assessment and plan: Continue plan as above Qualifiers: Pneumonia type: aspiration pneumonia Laterality: unspecified laterality Lung location: unspecified part of lung Qualified Code(s): J69.0 - Pneumonitis due to inhalation of food and vomit (4) Chronic wound of extremity Current Visit: Yes Status: Acute Assessment and plan: As stated above wound care consulted (5) Edema of left lower extremity Current Visit: Yes Status: Acute Assessment and plan: Patient's edema decreased from yesterday with IV albumin followed by lasix diuresis Patient with protein-calorie malnutrition with albumin 1.9 IV albumin (2nd dose today) IV Lasix to 40mg IV (2nd dose today) (6) Edema of right lower extremity Current Visit: Yes Status: Acute Assessment and plan: Plan as above (7) Anemia Current Visit: Yes Status: Acute Assessment and plan: Patient has chronic anemia and iron deficiency. Significant bleeding from wounds per sisters account. May require iron infusion and endoscopy in the future. However no active bleeding at this time. Additionally he likely has some chronic anemia from chronic infections. No IV iron at this time as he currently has an active infection. Hg trending down with Hg 7.2 this AM Transfuse one unit PRBC 05/26/15 s/P 1 unit PRBC. stable Now Hg 9.2 continue to monitor 05/27/16 Hb 8.2 this am will continue to monitor 05/28/16 Hb 9.1 this am up following holding fluids. Will continue to monitor. 05/29/16 Hb 8.8 this am Continue to hold fluids. Will continue to monitor. 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 Also had recent GI bleed and has not had endoscopy since that time. With chronic lower extremity wounds compression devices are not able to be placed at this time. - Time Spent With Patient 25 - 35 minutes (30 minutes including time with patient and time coordinating care) - Subjective Interval history: Mr. Junior states that he is doing well today. He states that he is breathing well today. Denies wheezing. He states that he will not tell me if he has pain in bilateral lower extremities. - Constitutional Vitals: Temp Pulse Resp BP Pulse Ox 97.7 F 90 16 106/65 96 05/29/16 11:33 05/29/16 11:33 05/29/16 11:33 05/29/16 11:33 05/29/16 11:33 General appearance: Present: A&O X 2, morbidly obese, pleasant, no acute distress - Head Head exam: Present: atraumatic, normocephalic Additional comments: paranasal erythema with excoriation - Eye Eye exam: Present: PERRL, conjuntiva pink, sclera anicteric Pupils: Present: PERRL - Neck Neck exam general surgery: Present: supple, trachea midline - Respiratory Respiratory exam: Present: wheezes. Absent: accessory muscle use, rales, rhonchi Additional comments: Diffuse wheezing, Right greater than left lung louise - Cardiovascular Cardiovascular exam: Present: RRR, +S1, +S2. Absent: diastolic murmur, gallop, rubs, systolic murmur - GI/Abdominal GI/Abdominal exam: Present: normal bowel sounds, soft, no peritoneal signs. Absent: distended, tenderness Additional comments: Abdomen with extensive venous stasis changes, edema, and erythema. - Extremities Exam Extremities exam: Present: pedal edema, warm, radial pulses palpable and symetrical. Absent: calf tenderness Additional comments: 2+ bilateral non-pitting edema decreased from yesterday. Edema is tense and extends to inguinal folds. Bilateral lower extremities with dressings in place. Left leg: erythema decreased from yesterday Right leg: erythema decreased from yesterday - Neurological Exam Neurological exam: Present: CN II-XII intact, oriented X3, no focal deficits. Absent: pronater drift, facial droop, speech deficit - Skin Skin exam: Present: dry, excoriation, intact, rash (erythematous rash to chest with excoriations), warm Internal Medicine: Result - Labs CBC & Chem 7: 05/29/16 04:16 05/29/16 04:16 Labs: Short CBC 05/29/16 Range/Units 04:16 WBC 7.9 (4.3-11.1) K/mcL Hgb 8.8 L (12.9-16.9) g/dL Hct 30.0 L (37.5-50.1) % Plt Count 191 (140-400) K/mcL Neutrophils # 4.3 (1.6-8.9) K/mcL BMP 05/29/16 04:16 Sodium 137 Potassium 4.4 Chloride 102 Carbon Dioxide 24 BUN 14 Creatinine 0.81 Glucose 94 Calcium 8.1 L - ABG Interpretation ABG results: ABG ABG pH 7.45 pH Units (7.32-7.45) 05/24/16 19:25 ABG pCO2 44 mmHg (35-45) 05/24/16 19:25 ABG pO2 90 mmHg (85-104) 05/24/16 19:25 ABG O2 Saturation 97 % (95-98) 05/24/16 19:25 PT/INR, D-dimer PT 12.1 Seconds (9.4-12.1) 05/22/16 22:03 - Impressions Chest CT 05/23/16 08:00 IMPRESSION: No acute process of the chest. The lungs are clear. Hiatal hernia. Infiltration of the subcutaneous tissues lower chest/upper abdomen left greater than right suggesting some edema/anasarca. D/ / 05/23/2016 08:57:20 Chuck Foley MD / [facility] Interpreting Provider: Chuck Foley MD Chest X-Ray 05/24/16 18:58 IMPRESSION: 1. New left basilar airspace opacity, potentially atelectasis, pneumonia, or aspiration. 2. Pulmonary vascular congestion and mild cardiomegaly with suspected bilateral perihilar edema. 3. Prominent pulmonary trunk, a finding that can be seen with pulmonary hypertension. D/ / Best Tobin MD / Best Tobin MD Interpreting Provider: Best Tobin MD Chest CTA 05/24/16 20:16 IMPRESSION: No evidence of significant pulmonary embolism. Suspect new patchy airspace disease right upper lobe. Concern would be for potential aspiration or pneumonia. This is new from the prior study but poorly seen with respiratory motion. Small hiatal hernia with reflux and esophageal wall thickening. Possible reflux esophagitis. Fatty infiltration liver. Atrophy of the included left kidney. D/ / Torres Mar MD / Torres Mar MD Interpreting Provider: Torres Mar MD Lower Extremity CT 05/26/16 11:46 IMPRESSION: Diffuse soft tissue and subcutaneous edema with skin thickening of the bilateral lower extremities suggesting cellulitis. Chronic appearing large shallow soft tissue ulceration along the anterior aspect of the right lower leg extending almost to the level of bone. Cortical thickening with mild irregularity of the anteromedial aspect of the right tibia may suggest osteomyelitis. Chronic appearing large soft tissue ulceration along the posteromedial aspect of the left lower leg extending almost to the level of bone distally. Cortical thickening with mild irregularity of the posteromedial aspect of the left tibia may suggest osteomyelitis. Extensive bilateral inguinal and external iliac chain bulky lymphadenopathy suggestive of reactive lymphadenopathy from the chronic bilateral lower extremity cellulitis. Small bilateral knee joint effusions with patellofemoral compartmental osteoarthritis bilaterally, left greater than right. D/ / 05/26/2016 14:00:12 Cedrick Wong MD / [facility] Interpreting Provider: Cedrick Wong MD Consult Discharge Plan - Plan Referrals: Evgeny Griffith MD [Primary Care Provider] - - Attending Attestation I examined this patient and my medical decision-making was reviewed with the ELECTRICAL MACHINIST/PA/Advanced Practice Nurse/Resident Physician. I agree with the documented findings, disposition and treatment plan as described except to the extent set forth below. <Max Clancy - Last Filed: 05/29/16 17:22> Date of Encounter: 05/29/16 - Constitutional Vitals: Temp Pulse Resp BP Pulse Ox 98.3 F 84 17 114/75 94 L 05/29/16 15:28 05/29/16 15:28 05/29/16 15:28 05/29/16 15:28 05/29/16 15:28 Internal Medicine: Result - Labs CBC & Chem 7: 05/29/16 04:16 05/29/16 04:16 Labs: Short CBC 05/29/16 Range/Units 04:16 WBC 7.9 (4.3-11.1) K/mcL Hgb 8.8 L (12.9-16.9) g/dL Hct 30.0 L (37.5-50.1) % Plt Count 191 (140-400) K/mcL Neutrophils # 4.3 (1.6-8.9) K/mcL BMP 05/29/16 04:16 Sodium 137 Potassium 4.4 Chloride 102 Carbon Dioxide 24 BUN 14 Creatinine 0.81 Glucose 94 Calcium 8.1 L - ABG Interpretation ABG results: ABG ABG pH 7.45 pH Units (7.32-7.45) 05/24/16 19:25 ABG pCO2 44 mmHg (35-45) 05/24/16 19:25 ABG pO2 90 mmHg (85-104) 05/24/16 19:25 ABG O2 Saturation 97 % (95-98) 05/24/16 19:25 PT/INR, D-dimer PT 12.1 Seconds (9.4-12.1) 05/22/16 22:03 - Attending Attestation I examined this patient and my medical decision-making was reviewed with the ELECTRICAL MACHINIST/PA/Advanced Practice Nurse/Resident Physician. I agree with the documented findings, disposition and treatment plan as described except to the extent set forth below. Continue with antibiotics, iv albumin and lasix. monitor electrolytes. Podiatry eval.
[2016-05-29] MEDS: Gentamicin Oint 15 GM TUBE TP SCH (14:34)
[2016-05-29] MEDS: Vancomycin 1,500 MG in D5% in Water 250 ML IVPB SCH (20:07)
[2016-05-29] MEDS ORDERED: Ondansetron 4 MG/2 ML VIAL IVP PRN (21:22)
[2016-05-29] MEDS: Acetaminophen 325 MG TABLET PO PRN (21:38)
[2016-05-30 03:14] LABS: Sodium, Urine < 20.0 mEq/L
[2016-05-30 03:51] LABS: Osmolality,Urine 691 mOsm/kg (300-1090)
[2016-05-30] MEDS: Vancomycin 1,000 MG in D5% in Water 250 ML IVPB SCH ×2 (03:55→16:27)
[2016-05-30] MEDS: Ipratropium/Albuterol Neb 3 ML IH SCH ×4 (04:17→22:22)
[2016-05-30 04:51] LABS: Basophils % 0.6 %; Monocytes % 12.5 %
[2016-05-30 04:53] LABS: Eosinophils # 1.1 K/mcL (0.0-0.6); Eosinophils % 16.4 %; Hematocrit 26.2 % (37.5-50.1); Hemoglobin 7.5 g/dL (12.9-16.9); Immature Granulocytes % 1.1 % (0-4); Lymphocytes # 1.4 K/mcL (0.6-4.6); Lymphocytes % 20.8 %; Mean Corpuscular HGB Conc 28.6 g/dL (31.6-35.5); Mean Corpuscular Hemoglobin 23.9 pg (28.0-33.3); Mean Corpuscular Volume 83.4 fL (83.0-100.0); Mean Platelet Volume 10.3 fL (9.4-12.4); Monocytes # 0.8 K/mcL (0.0-1.3); Neutrophils # 3.2 K/mcL (1.6-8.9); Platelet Count 306 K/mcL (140-400); Red Blood Count 3.14 M/mcL (4.19-5.50); Red Cell Distribution Width 19.2 % (11.5-14.5); Segmented Neutrophils % 48.6 %
[2016-05-30 05:03] LABS: BUN/Creatinine Ratio 21 (6-26); Blood Urea Nitrogen 13 mg/dL (8-26); Carbon Dioxide 29 mEq/L (19-29); Chloride 101 mEq/L (98-109); Glucose 95 mg/dL (70-99); Magnesium 1.9 mg/dL (1.6-2.6); Osmolality,Calculated 286 (280-300); Sodium 138 mEq/L (136-145); eGFR For African Americans > 60 (> 60); eGFR For Non-African Americans > 60 (> 60)
[2016-05-30 05:04] LABS: Potassium 3.2 mEq/L (3.5-4.5)
[2016-05-30] MEDS: Acetaminophen 325 MG TABLET PO PRN (06:08)
[2016-05-30] MEDS: Piperacillin/Tazobactam 3.375 GM in D5% in Water (Mini-Bag+) 100 ML IVPB SCH ×3 (06:10→20:19)
[2016-05-30 06:21] LABS: Anisocytosis 1+ (Not Present); Hypochromasia Present (Not Present); Macrocytosis Present (Not Present); Microcytosis Present (Not Present); Platelet Estimate Normal (Normal); Polychromasia 1+ (Not Present)
[2016-05-30 06:22] LABS: Large Platelets Present (Not Present)
[2016-05-30] MEDS: Lactobacillus 1 EACH CAP.SPRINK PO SCH ×2 (08:10→21:08)
[2016-05-30] MEDS: Famotidine 20 MG TABLET PO SCH ×2 (08:11→21:08)
[2016-05-30] MEDS: Ascorbic Acid 500 MG TABLET PO SCH (08:11)
[2016-05-30] MEDS: Petrolatum, White OINT.PACK TP SCH ×2 (08:11→21:06)
[2016-05-30] MEDS: Multivit/Ca/Min/Fe/FA 1 TAB TABLET PO SCH (08:11)
[2016-05-30] MEDS: Zinc Sulfate 220 MG CAPSULE PO SCH (08:11)
[2016-05-30] MEDS: Furosemide 20 MG TABLET PO SCH ×2 (08:11→18:14)
[2016-05-30] MEDS ORDERED: Albumin 25% 25gram/100mL 25 GM/100 ML IV.SOLN IVPB ONE (10:30)
[2016-05-30] MEDS ORDERED: Furosemide 40 MG/4 ML VIAL IVP ONE (10:30)
[2016-05-30] MEDS: Gentamicin Oint 15 GM TUBE TP SCH (12:23)
--- NOTE | 2016-05-30 13:06 | Internal Med Progress Note ---
Addendum entered and electronically signed by Ira Jon DO 19:05: Bilateral lower legs exquisitely tender to palpation due to venous stasis ulcers. Bilateral feet and lower legs with 2+ pitting edema. Original Note: <Max Clancy - Last Filed: 05/30/16 17:59> Date of Encounter: 05/30/16 - Constitutional Vitals: Temp Pulse Resp BP Pulse Ox 98.2 F 87 18 96/65 98 05/30/16 15:37 05/30/16 15:37 05/30/16 15:37 05/30/16 15:37 05/30/16 15:37 Internal Medicine: Result - Labs CBC & Chem 7: 05/30/16 04:15 05/30/16 04:15 Labs: Short CBC 05/30/16 Range/Units 04:15 WBC 6.5 (4.3-11.1) K/mcL Hgb 7.5 L (12.9-16.9) g/dL Hct 26.2 L (37.5-50.1) % Plt Count 306 D (140-400) K/mcL Neutrophils # 3.2 (1.6-8.9) K/mcL BMP 05/30/16 04:15 Sodium 138 Potassium 3.2 L D Chloride 101 Carbon Dioxide 29 BUN 13 Creatinine 0.63 L Glucose 95 Calcium 8.0 L Liver Function 05/30/16 Range/Units 16:04 Albumin 2.7 L (3.5-5.0) g/dL - ABG Interpretation ABG results: ABG ABG pH 7.45 pH Units (7.32-7.45) 05/24/16 19:25 ABG pCO2 44 mmHg (35-45) 05/24/16 19:25 ABG pO2 90 mmHg (85-104) 05/24/16 19:25 ABG O2 Saturation 97 % (95-98) 05/24/16 19:25 PT/INR, D-dimer PT 12.1 Seconds (9.4-12.1) 05/22/16 22:03 - Impressions Impressions Chest X-Ray 05/30/16 09:37 IMPRESSION: Mild CHF. No evidence of pneumonia. D/ / Sharif Castro MD / Sharif Castro MD Interpreting Provider: Sharif Castro MD Consult Discharge Plan - Plan Referrals: Evgeny Griffith MD [Primary Care Provider] - - Attending Attestation I examined this patient and my medical decision-making was reviewed with the [employer]/PA/Advanced Practice Nurse/Resident Physician. I agree with the documented findings, disposition and treatment plan as described except to the extent set forth below. Agree with Dr. Jon, Wound care, iv antibiotics, d/c planning, will need iv antiboitcs at home with infusion services. Lasix and iv albumin. <Ira Jon - Last Filed: 05/30/16 18:56> Date of Encounter: 05/30/16 Time of Encounter: 09:30 - Assessment and plan (1) Sepsis Current Visit: Yes Status: Acute Assessment and plan: Patient meets sepsis criteria with WBC of 22, T 100.6, and tachycardia. Most likely source is secondary to his chronic wounds of the lower extremities. CT of the chest was performed and dose not show any acute processes. Blood cultures have been collected and are pending. UA was ordered and is pending. No organ dysfunction and normal lactic acid so this is not severe sepsis. Currently he is on Meropenem and Vancomycin. we will continue as this is good coverage. We can tailor once we have culture results. Duration of antibiotics will depend on clinical course. However most likely he will need a long course of antibiotics given chronic wounds and possible chronic osteomyelitis seen on MRI from 05/18/16 with overlying chronic wounds of the lower extremities. however inflammatory markers are quite low. I have also requested culture results and records form [facility] as well. 05/24/16 No major events overnight. Still meets SIRS criteria with T 100.9 and Leukocytosis. However leukocytosis is trending down. I spoke with Dr. Terrazas over the phone. He has been seeing this patient for many years. He is currently trying to get the patient an appointment at either the [facility] or [facility] in [place] to be evaluated for potential skin grafts. We will continue current antibiotics and follow with culture results. Once the patient is more stable will plan to DC with close follow up with Dr. Terrazas. 05/25/16 Patient no longer meets SIRS criteria this AM Leukocytosis has resolved blood cultures show no growth to date. On Meropenem and Vancomycin Consider deescalating antibiotics in the AM. 05/26/16 Patient has had return of fever and WBC trending up. With tachycardia. Meets Sepsis criteria again. We have redrawn blood cultures. Patient not tolerating meropenem due to burning. we will switch to Zosyn. We had dicontinued vancomycin. However I spoke with pharmacy and he should still be therapeutic. will get a CT of the Lower extremities to rule out intramuscular abscess. 05/27/16 Patient afebrile, max HR 106, WBC trending down. Continues to meet sepsis criteria. Blood cultures are pending. Respiratory viral panel negative. CT Right lower extremity with thickening and sclerosis of the anterior tibial cortex with subtle indistinctness, small right knee joint effusion, no drainable fluid collection CT left lower extremity with thickening and sclerosis of the posteromedial tibial cortex with subtle indistinctness, small left knee joint effusion, no drainable fluid collection These findings are comparable to MRI performed 05/18/16 ESR today 87, up from 16 four days ago CRP today 83, 62 from 16 four days ago Continue Zosyn Will restart Vanc for treatment of cellulitis I spoke to Dr. Terrazas in great detail at 11:49am regarding this patient. He has been treating wounds on patient's lower extremites for years. He states that he does not believe that patient has osteomyelitis. 05/28/16 Patient afebrile, no tachycardia, leukocytosis resolved, however trending up to >130 from 87 yesterday, CRP 77 today from 83 yesterday. Does not meet sepsis criteria. Blood cultures are negative. Respiratory viral panel negative. CT Right lower extremity with thickening and sclerosis of the anterior tibial cortex with subtle indistinctness, small right knee joint effusion, no drainable fluid collection. CT left lower extremity with thickening and sclerosis of the posteromedial tibial cortex with subtle indistinctness, small left knee joint effusion, no drainable fluid collection. CT findings are comparable to MRI performed 05/18/16 ESR today 87, up from 16 four days ago CRP today 83, 62 from 16 four days ago Continue Zosyn Continue Vanc for treatment of cellulitis 05/29/16 Patient afebrile, no tachycardia, leukocytosis resolved, ESR was greater than 130 yesterday. Does not meet sepsis criteria. Blood cultures are negative. Respiratory viral panel negative. CT Right lower extremity with thickening and sclerosis of the anterior tibial cortex with subtle indistinctness, small right knee joint effusion, no drainable fluid collection. CT left lower extremity with thickening and sclerosis of the posteromedial tibial cortex with subtle indistinctness, small left knee joint effusion, no drainable fluid collection. CT findings are comparable to MRI performed 05/18/16 ESR today 87, up from 16 four days ago CRP today 83, 62 from 16 four days ago Continue Zosyn Continue Vanc 05/30/16 Patient's leukocytosis has resolved Repeat CXR with evidence of mild CHF, no infiltrates Will continue Zosyn and Vanc Plan to transition patient back to home at discharge with IV abx Qualifiers: Sepsis type: sepsis due to unspecified organism Qualified Code(s): A41.9 - Sepsis, unspecified organism (2) Cellulitis Current Visit: Yes Status: Acute Assessment and plan: As stated above. Qualifiers: Site of cellulitis: extremity Site of cellulitis of extremity: lower extremity Laterality: unspecified laterality Qualified Code(s): L03.119 - Cellulitis of unspecified part of limb (3) Pneumonia Current Visit: No Status: Acute Assessment and plan: Continue plan as above Qualifiers: Pneumonia type: aspiration pneumonia Laterality: left Lung location: lower lobe of lung Qualified Code(s): J69.0 - Pneumonitis due to inhalation of food and vomit (4) Chronic wound of extremity Current Visit: Yes Status: Acute Assessment and plan: As stated above wound care consulted (5) Edema of left lower extremity Current Visit: Yes Status: Acute Assessment and plan: Patient's edema decreased from yesterday with IV albumin followed by lasix diuresis Patient with protein-calorie malnutrition with albumin 1.9 Increase daily lasix to 20mg po BID IV albumin (2nd dose today) IV Lasix to 40mg IV (2nd dose today) (6) Edema of right lower extremity Current Visit: Yes Status: Acute Assessment and plan: Plan as above (7) Anemia Current Visit: Yes Status: Acute Assessment and plan: Patient has chronic anemia and iron deficiency. Significant bleeding from wounds per sisters account. May require iron infusion and endoscopy in the future. However no active bleeding at this time. Additionally he likely has some chronic anemia from chronic infections. No IV iron at this time as he currently has an active infection. Hg trending down with Hg 7.2 this AM Transfuse one unit PRBC 05/26/15 s/P 1 unit PRBC. stable Now Hg 9.2 continue to monitor 05/27/16 Hb 8.2 this am will continue to monitor 05/28/16 Hb 9.1 this am up following holding fluids. Will continue to monitor. 05/29/16 Hb 8.8 this am Continue to hold fluids. Will continue to monitor. 05/30/16 Hb 7.5 today Patient assymptomatic Continue to monitor Qualifiers: Anemia type: unspecified type Qualified Code(s): D64.9 - Anemia, unspecified (8) Pulmonary hypertension Current Visit: Yes Status: Chronic Assessment and plan: Severe Likely secondary to JOHN follow with pulmonology as outpatient (9) Hypokalemia Current Visit: Yes Status: Acute Assessment and plan: Replaced Continue to monitor (10) Hyponatremia Current Visit: Yes Status: Resolved Assessment and plan: Resolved (11) Hypomagnesemia Current Visit: Yes Status: Resolved Assessment and plan: Resolved (12) Metabolic alkalosis Current Visit: Yes Status: Resolved Assessment and plan: resolved (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 Also had recent GI bleed and has not had endoscopy since that time. With chronic lower extremity wounds compression devices are not able to be placed at this time. - Time Spent With Patient 25 - 35 minutes (30 minutes including time with patient and coordinating care) - Subjective Interval history: Mr. Junior states that he is doing well today. He has just received his breakfast tray. - Constitutional Vitals: Temp Pulse Resp BP Pulse Ox 98.0 F 83 18 106/71 96 05/30/16 07:16 05/30/16 07:16 05/30/16 07:16 05/30/16 07:16 05/30/16 07:16 General appearance: Present: A&O X 2, morbidly obese, pleasant, no acute distress - Head Head exam: Present: atraumatic, normocephalic - Eye Eye exam: Present: PERRL, conjuntiva pink, sclera anicteric Pupils: Present: PERRL - Neck Neck exam general surgery: Present: supple, trachea midline. Absent: lymphadenopathy - Respiratory Respiratory exam: Present: wheezes. Absent: accessory muscle use, rales, rhonchi Additional comments: Mild wheeze in right lung base - Cardiovascular Cardiovascular exam: Present: RRR, +S1, +S2. Absent: diastolic murmur, gallop, rubs, systolic murmur - GI/Abdominal GI/Abdominal exam: Present: normal bowel sounds, soft, no peritoneal signs. Absent: distended, tenderness Additional comments: Skin with chronic lymphedematous changes, Edema 1+ non-pitting - Extremities Exam Extremities exam: Present: warm, radial pulses palpable and symetrical. Absent : calf tenderness, cyanotic, pedal edema Additional comments: Bilateral lower extremities with bandages in place to lower legs Bilateral upper legs with 2+ pitting edema and erythema - Neurological Exam Neurological exam: Present: CN II-XII intact, oriented X3, no focal deficits. Absent: pronater drift, facial droop, speech deficit - Skin Skin exam: Present: dry, intact, warm Internal Medicine: Result - Labs CBC & Chem 7: 05/30/16 04:15 05/30/16 04:15 Labs: Short CBC 05/30/16 Range/Units 04:15 WBC 6.5 (4.3-11.1) K/mcL Hgb 7.5 L (12.9-16.9) g/dL Hct 26.2 L (37.5-50.1) % Plt Count 306 D (140-400) K/mcL Neutrophils # 3.2 (1.6-8.9) K/mcL BMP 05/30/16 04:15 Sodium 138 Potassium 3.2 L D Chloride 101 Carbon Dioxide 29 BUN 13 Creatinine 0.63 L Glucose 95 Calcium 8.0 L - ABG Interpretation ABG results: ABG ABG pH 7.45 pH Units (7.32-7.45) 05/24/16 19:25 ABG pCO2 44 mmHg (35-45) 05/24/16 19:25 ABG pO2 90 mmHg (85-104) 05/24/16 19:25 ABG O2 Saturation 97 % (95-98) 05/24/16 19:25 PT/INR, D-dimer PT 12.1 Seconds (9.4-12.1) 05/22/16 22:03 - Impressions Impressions Chest X-Ray 05/30/16 09:37
[2016-05-30] MEDS: Magnesium Oxide 400 MG TABLET PO SCH ×2 (13:37→21:08)
[2016-05-31] MEDS: Vancomycin 1,000 MG in D5% in Water 250 ML IVPB SCH ×2 (03:19→15:04)
[2016-05-31] MEDS: Piperacillin/Tazobactam 3.375 GM in D5% in Water (Mini-Bag+) 100 ML IVPB SCH ×2 (05:03→12:19)
[2016-05-31] MEDS: Ipratropium/Albuterol Neb 3 ML IH SCH ×5 (05:08→22:20)
[2016-05-31 05:13] LABS: Hemoglobin 7.7 g/dL (12.9-16.9)
[2016-05-31 05:15] LABS: Hematocrit 27.3 % (37.5-50.1); Mean Corpuscular HGB Conc 28.2 g/dL (31.6-35.5); Mean Corpuscular Hemoglobin 23.5 pg (28.0-33.3); Mean Corpuscular Volume 83.2 fL (83.0-100.0); Mean Platelet Volume 10.9 fL (9.4-12.4); Platelet Count 295 K/mcL (140-400); Red Blood Count 3.28 M/mcL (4.19-5.50); Red Cell Distribution Width 19.4 % (11.5-14.5)
[2016-05-31 05:32] LABS: BUN/Creatinine Ratio 24 (6-26); Blood Urea Nitrogen 16 mg/dL (8-26); Calcium 8.1 mg/dL (8.6-10.8); Carbon Dioxide 30 mEq/L (19-29); Chloride 103 mEq/L (98-109); Glucose 101 mg/dL (70-99); Osmolality,Calculated 293 (280-300); Sodium 141 mEq/L (136-145); eGFR For African Americans > 60 (> 60); eGFR For Non-African Americans > 60 (> 60)
[2016-05-31 05:54] LABS: Potassium 4.3 mEq/L (3.5-4.5)
[2016-05-31 06:02] LABS: Basophils # 0.1 K/mcL (0.0-0.2); Eosinophils # 0.9 K/mcL (0.0-0.6); Hypochromasia Present (Not Present); Lymphocytes # 1.5 K/mcL (0.6-4.6); Monocytes # 0.5 K/mcL (0.0-1.3); Neutrophils # 2.7 K/mcL (1.6-8.9); Platelet Clumps Few (Not Present); Platelet Estimate Normal (Normal)
[2016-05-31 06:03] LABS: Polychromasia 1+ (Not Present)
[2016-05-31] MEDS: Famotidine 20 MG TABLET PO SCH ×2 (08:17→21:55)
[2016-05-31] MEDS: Lactobacillus 1 EACH CAP.SPRINK PO SCH ×2 (08:17→21:55)
[2016-05-31] MEDS: Multivit/Ca/Min/Fe/FA 1 TAB TABLET PO SCH (08:17)
[2016-05-31] MEDS: Ascorbic Acid 500 MG TABLET PO SCH (08:18)
[2016-05-31] MEDS: Magnesium Oxide 400 MG TABLET PO SCH ×2 (08:18→21:55)
[2016-05-31] MEDS: Furosemide 20 MG TABLET PO SCH ×2 (08:18→16:20)
[2016-05-31] MEDS: Gentamicin Oint 15 GM TUBE TP SCH (08:23)
[2016-05-31] MEDS: Zinc Sulfate 220 MG CAPSULE PO SCH (08:23)
[2016-05-31] MEDS: Petrolatum, White OINT.PACK TP SCH ×2 (08:23→21:58)
[2016-05-31] MEDS: Acetaminophen 325 MG TABLET PO PRN (14:03)
[2016-05-31] MEDS ORDERED: Albumin 25% 25gram/100mL 25 GM/100 ML IV.SOLN IVPB ONE (16:03)
--- NOTE | 2016-05-31 16:05 | Internal Med Progress Note ---
<Ira Jon Steve - Last Filed: 05/31/16 16:13> Date of Encounter: 05/31/16 Time of Encounter: 13:00 - Assessment and plan (1) Sepsis Current Visit: Yes Status: Acute Assessment and plan: Patient meets sepsis criteria with WBC of 22, T 100.6, and tachycardia. Most likely source is secondary to his chronic wounds of the lower extremities. CT of the chest was performed and dose not show any acute processes. Blood cultures have been collected and are pending. UA was ordered and is pending. No organ dysfunction and normal lactic acid so this is not severe sepsis. Currently he is on Meropenem and Vancomycin. we will continue as this is good coverage. We can tailor once we have culture results. Duration of antibiotics will depend on clinical course. However most likely he will need a long course of antibiotics given chronic wounds and possible chronic osteomyelitis seen on MRI from 05/18/16 with overlying chronic wounds of the lower extremities. however inflammatory markers are quite low. I have also requested culture results and records form [facility] as well. 05/24/16 No major events overnight. Still meets SIRS criteria with T 100.9 and Leukocytosis. However leukocytosis is trending down. I spoke with Dr. Terrazas over the phone. He has been seeing this patient for many years. He is currently trying to get the patient an appointment at either the [facility] or [facility] in [place] to be evaluated for potential skin grafts. We will continue current antibiotics and follow with culture results. Once the patient is more stable will plan to DC with close follow up with Dr. Terrazas. 05/25/16 Patient no longer meets SIRS criteria this AM Leukocytosis has resolved blood cultures show no growth to date. On Meropenem and Vancomycin Consider deescalating antibiotics in the AM. 05/26/16 Patient has had return of fever and WBC trending up. With tachycardia. Meets Sepsis criteria again. We have redrawn blood cultures. Patient not tolerating meropenem due to burning. we will switch to Zosyn. We had dicontinued vancomycin. However I spoke with pharmacy and he should still be therapeutic. will get a CT of the Lower extremities to rule out intramuscular abscess. 05/27/16 Patient afebrile, max HR 106, WBC trending down. Continues to meet sepsis criteria. Blood cultures are pending. Respiratory viral panel negative. CT Right lower extremity with thickening and sclerosis of the anterior tibial cortex with subtle indistinctness, small right knee joint effusion, no drainable fluid collection CT left lower extremity with thickening and sclerosis of the posteromedial tibial cortex with subtle indistinctness, small left knee joint effusion, no drainable fluid collection These findings are comparable to MRI performed 05/18/16 ESR today 87, up from 16 four days ago CRP today 83, 62 from 16 four days ago Continue Zosyn Will restart Vanc for treatment of cellulitis I spoke to Dr. Terrazas in great detail at 11:49am regarding this patient. He has been treating wounds on patient's lower extremites for years. He states that he does not believe that patient has osteomyelitis. 05/28/16 Patient afebrile, no tachycardia, leukocytosis resolved, however trending up to >130 from 87 yesterday, CRP 77 today from 83 yesterday. Does not meet sepsis criteria. Blood cultures are negative. Respiratory viral panel negative. CT Right lower extremity with thickening and sclerosis of the anterior tibial cortex with subtle indistinctness, small right knee joint effusion, no drainable fluid collection. CT left lower extremity with thickening and sclerosis of the posteromedial tibial cortex with subtle indistinctness, small left knee joint effusion, no drainable fluid collection. CT findings are comparable to MRI performed 05/18/16 ESR today 87, up from 16 four days ago CRP today 83, 62 from 16 four days ago Continue Zosyn Continue Vanc for treatment of cellulitis 05/29/16 Patient afebrile, no tachycardia, leukocytosis resolved, ESR was greater than 130 yesterday. Does not meet sepsis criteria. Blood cultures are negative. Respiratory viral panel negative. CT Right lower extremity with thickening and sclerosis of the anterior tibial cortex with subtle indistinctness, small right knee joint effusion, no drainable fluid collection. CT left lower extremity with thickening and sclerosis of the posteromedial tibial cortex with subtle indistinctness, small left knee joint effusion, no drainable fluid collection. CT findings are comparable to MRI performed 05/18/16 ESR today 87, up from 16 four days ago CRP today 83, 62 from 16 four days ago Continue Zosyn Continue Vanc 05/30/16 Patient's leukocytosis has resolved Repeat CXR with evidence of mild CHF, no infiltrates Will continue Zosyn and Vanc Plan to transition patient back to home at discharge with IV abx 05/31/16 Leukocytosis resolved D/C Zosyn Start Cefipime (day#1) Continue Vanc Plan for discharge tomorrow with IV abx Qualifiers: Sepsis type: sepsis due to unspecified organism Qualified Code(s): A41.9 - Sepsis, unspecified organism (2) Cellulitis Current Visit: Yes Status: Acute Assessment and plan: As stated above. Qualifiers: Site of cellulitis: extremity Site of cellulitis of extremity: lower extremity Laterality: unspecified laterality Qualified Code(s): L03.119 - Cellulitis of unspecified part of limb (3) Pneumonia Current Visit: No Status: Resolved Assessment and plan: Continue plan as above Qualifiers: Pneumonia type: aspiration pneumonia Laterality: left Lung location: lower lobe of lung Qualified Code(s): J69.0 - Pneumonitis due to inhalation of food and vomit (4) Chronic wound of extremity Current Visit: Yes Status: Acute Assessment and plan: As stated above wound care consulted (5) Edema of left lower extremity Current Visit: Yes Status: Acute Assessment and plan: Patient's edema still present Albumin increased to 2.7 yesterday Will give IV albumin followed by lasix diuresis IV albumin (2nd dose today) IV Lasix to 40mg IV (2nd dose today) Increase daily lasix to 20mg po BID Patient with protein-calorie malnutrition with albumin 2.4 upon admission Patient will require improvement of nutrition status to heal wounds on lower extremities (6) Edema of right lower extremity Current Visit: Yes Status: Acute Assessment and plan: Plan as above (7) Anemia Current Visit: Yes Status: Acute Assessment and plan: Patient has chronic anemia and iron deficiency. Significant bleeding from wounds per sisters account. May require iron infusion and endoscopy in the future. However no active bleeding at this time. Additionally he likely has some chronic anemia from chronic infections. No IV iron at this time as he currently has an active infection. Hg trending down with Hg 7.2 this AM Transfuse one unit PRBC 05/26/15 s/P 1 unit PRBC. stable Now Hg 9.2 continue to monitor 05/27/16 Hb 8.2 this am will continue to monitor 05/28/16 Hb 9.1 this am up following holding fluids. Will continue to monitor. 05/29/16 Hb 8.8 this am Continue to hold fluids. Will continue to monitor. 05/30/16 Hb 7.5 today Patient assymptomatic Continue to monitor 05/31/16 Patient Hb 7.5 today Stable Continue to monitor Qualifiers: Anemia type: unspecified type Qualified Code(s): D64.9 - Anemia, unspecified (8) Pulmonary hypertension Current Visit: Yes Status: Chronic Assessment and plan: Severe Likely secondary to JOHN follow with pulmonology as outpatient (9) Hypokalemia Current Visit: Yes Status: Resolved Assessment and plan: Resolved (10) Hyponatremia Current Visit: Yes Status: Resolved Assessment and plan: Resolved (11) Hypomagnesemia Current Visit: Yes Status: Resolved Assessment and plan: Resolved (12) Metabolic alkalosis Current Visit: Yes Status: Resolved Assessment and plan: resolved (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 Also had recent GI bleed and has not had endoscopy since that time. With chronic lower extremity wounds compression devices are not able to be placed at this time. - Time Spent With Patient Greater than 35 minutes (40 minutes including time with patinet and coordinating care) - Subjective Interval history: Mr. Junior states that he is doing well today. He is coloring while sitting in bed. - Constitutional Vitals: Temp Pulse Resp BP Pulse Ox 98.1 F 100 16 123/83 91 L 05/31/16 15:42 05/31/16 15:42 05/31/16 15:42 05/31/16 15:42 05/31/16 15:42 General appearance: Present: A&O X 2, morbidly obese, pleasant, no acute distress - Head Head exam: Present: atraumatic, normocephalic - Eye Eye exam: Present: PERRL, conjuntiva pink, sclera anicteric - Neck Neck exam general surgery: Present: supple, trachea midline. Absent: lymphadenopathy - Respiratory Respiratory exam: Present: wheezes. Absent: accessory muscle use, rales, respiratory distress (Expiratory wheezing in right lung base), rhonchi - Cardiovascular Cardiovascular exam: Present: RRR, +S1, +S2. Absent: diastolic murmur, gallop, rubs, systolic murmur - GI/Abdominal GI/Abdominal exam: Present: normal bowel sounds, soft, no peritoneal signs. Absent: distended, tenderness Additional comments: Skin with chronic lymphedematous changes, Edema 1+ non-pitting - Extremities Exam Extremities exam: Present: warm, radial pulses palpable and symetrical. Absent : calf tenderness, cyanotic, pedal edema Additional comments: Bilateral lower extremities with bandages in place to lower legs Bilateral upper legs with 2+ pitting edema and erythema - Neurological Exam Neurological exam: Present: CN II-XII intact, no focal deficits. Absent: pronater drift, facial droop, speech deficit - Skin Skin exam: Present: dry, erythema (bilateral legs, trunk, and abdomen), intact Internal Medicine: Result - Labs CBC & Chem 7: 05/31/16 04:37 05/31/16 04:37 Labs: Short CBC 05/31/16 Range/Units 04:37 WBC 5.7 (4.3-11.1) K/mcL Hgb 7.7 L (12.9-16.9) g/dL Hct 27.3 L (37.5-50.1) % Plt Count 295 (140-400) K/mcL Neutrophils # 2.7 (1.6-8.9) K/mcL BMP 05/31/16 04:37 Sodium 141 Potassium 4.3 D Chloride 103 Carbon Dioxide 30 H BUN 16 Creatinine 0.68 L Glucose 101 H Calcium 8.1 L Liver Function 05/30/16 Range/Units 16:04 Albumin 2.7 L (3.5-5.0) g/dL - ABG Interpretation ABG results: ABG ABG pH 7.45 pH Units (7.32-7.45) 05/24/16 19:25 ABG pCO2 44 mmHg (35-45) 05/24/16 19:25 ABG pO2 90 mmHg (85-104) 05/24/16 19:25 ABG O2 Saturation 97 % (95-98) 05/24/16 19:25 PT/INR, D-dimer PT 12.1 Seconds (9.4-12.1) 05/22/16 22:03 Consult Discharge Plan - Plan Referrals: [facility] [place],Francisco Sandoval MD [Non-Partnered Physician] - 06/09/16 3:15 pm Prescriptions: Vancomycin HCl in Dextrose 5 % [Vancomycin-D5w 1 G/250 ml] 1 gm IV Q12HR 14 Days Levofloxacin [Levaquin] 750 mg PO DAILY #14 tablet - Attending Attestation I examined this patient and my medical decision-making was reviewed with the WE[employer] OPERATOR/PA/Advanced Practice Nurse/Resident Physician. I agree with the documented findings, disposition and treatment plan as described except to the extent set forth below. <Max Clancy - Last Filed: 05/31/16 16:45> Date of Encounter: 05/31/16 - Constitutional Vitals: Temp Pulse Resp BP Pulse Ox 98.1 F 100 16 123/83 91 L 05/31/16 15:42 05/31/16 15:42 05/31/16 15:42 05/31/16 15:42 05/31/16 15:42 Internal Medicine: Result - Labs CBC & Chem 7: 05/31/16 04:37 05/31/16 04:37 Labs: Short CBC 05/31/16 Range/Units 04:37 WBC 5.7 (4.3-11.1) K/mcL Hgb 7.7 L (12.9-16.9) g/dL Hct 27.3 L (37.5-50.1) % Plt Count 295 (140-400) K/mcL Neutrophils # 2.7 (1.6-8.9) K/mcL BMP 05/31/16 04:37 Sodium 141 Potassium 4.3 D Chloride 103 Carbon Dioxide 30 H BUN 16 Creatinine 0.68 L Glucose 101 H Calcium 8.1 L - ABG Interpretation ABG results: ABG ABG pH 7.45 pH Units (7.32-7.45) 05/24/16 19:25 ABG pCO2 44 mmHg (35-45) 05/24/16 19:25 ABG pO2 90 mmHg (85-104) 05/24/16 19:25 ABG O2 Saturation 97 % (95-98) 05/24/16 19:25 PT/INR, D-dimer PT 12.1 Seconds (9.4-12.1) 05/22/16 22:03 - Attending Attestation I examined this patient and my medical decision-making was reviewed with the WEIGHING STATION OPERATOR/PA/Advanced Practice Nurse/Resident Physician. I agree with the documented findings, disposition and treatment plan as described except to the extent set forth below. Continue with iv antibiotics, d/c zosyn and give maxipime, continue vancomycin. possible d/c home tomorrow with iv antibiotics.
[2016-05-31] MEDS: Furosemide 40 MG/4 ML VIAL IVP ONE ×2 (16:35→16:37)
[2016-05-31] MEDS: Cefepime HCl 2,000 MG in D5% in Water (Mini-Bag+) 100 ML IVPB SCH (17:43)
[2016-06-01] MEDS: Vancomycin 1,000 MG in D5% in Water 250 ML IVPB SCH ×2 (03:30→15:19)
[2016-06-01] MEDS: Ipratropium/Albuterol Neb 3 ML IH SCH ×4 (04:34→23:01)
[2016-06-01] MEDS: Cefepime HCl 2,000 MG in D5% in Water (Mini-Bag+) 100 ML IVPB SCH ×2 (05:41→18:36)
[2016-06-01 06:31] LABS: Basophils % 0.7 %; Hemoglobin 7.6 g/dL (12.9-16.9); Mean Corpuscular Volume 83.8 fL (83.0-100.0)
[2016-06-01 06:33] LABS: Eosinophils # 0.9 K/mcL (0.0-0.6); Eosinophils % 16.9 %; Hematocrit 27.4 % (37.5-50.1); Immature Granulocytes % 0.9 % (0-4); Lymphocytes # 1.1 K/mcL (0.6-4.6); Lymphocytes % 19.3 %; Mean Corpuscular HGB Conc 27.7 g/dL (31.6-35.5); Mean Corpuscular Hemoglobin 23.2 pg (28.0-33.3); Mean Platelet Volume 10.7 fL (9.4-12.4); Monocytes # 0.8 K/mcL (0.0-1.3); Monocytes % 14.7 %; Neutrophils # 2.6 K/mcL (1.6-8.9); Platelet Count 327 K/mcL (140-400); Red Blood Count 3.27 M/mcL (4.19-5.50); Red Cell Distribution Width 19.6 % (11.5-14.5); Segmented Neutrophils % 47.5 %
[2016-06-01 06:43] LABS: Alanine Aminotransferase 20 Units/L (0-55); Albumin 2.7 g/dL (3.5-5.0); Albumin/Globulin Ratio 0.8 (1.1-2.2); Alkaline Phosphatase 86 Units/L (38-126); Aspartate Amino Transferase 32 Units/L (5-34); BUN/Creatinine Ratio 23 (6-26); Bilirubin,Total 0.3 mg/dL (0.2-1.2); Blood Urea Nitrogen 17 mg/dL (8-26); Calcium 8.1 mg/dL (8.6-10.8); Carbon Dioxide 29 mEq/L (19-29); Chloride 104 mEq/L (98-109); Globulin 3.2 g/dL (2.4-3.5); Glucose 102 mg/dL (70-99); Osmolality,Calculated 294 (280-300); Sodium 141 mEq/L (136-145); Total Protein 5.9 g/dL (6.0-8.3); eGFR For African Americans > 60 (> 60); eGFR For Non-African Americans > 60 (> 60)
[2016-06-01 07:41] LABS: Anisocytosis 2+ (Not Present); Hypochromasia Present (Not Present); Platelet Estimate Normal (Normal)
[2016-06-01 07:42] LABS: Polychromasia 1+ (Not Present)
[2016-06-01] MEDS: Furosemide 20 MG TABLET PO SCH ×2 (09:22→15:19)
[2016-06-01] MEDS: Ascorbic Acid 500 MG TABLET PO SCH (09:23)
[2016-06-01] MEDS: Famotidine 20 MG TABLET PO SCH ×2 (09:23→21:20)
[2016-06-01] MEDS: Magnesium Oxide 400 MG TABLET PO SCH ×2 (09:23→21:20)
[2016-06-01] MEDS: Zinc Sulfate 220 MG CAPSULE PO SCH (09:23)
[2016-06-01] MEDS: Multivit/Ca/Min/Fe/FA 1 TAB TABLET PO SCH (09:23)
[2016-06-01] MEDS: Lactobacillus 1 EACH CAP.SPRINK PO SCH ×2 (09:23→21:20)
[2016-06-01] MEDS: Petrolatum, White OINT.PACK TP SCH ×2 (09:24→21:20)
[2016-06-01 11:51] LABS: C-Reactive Protein 65 mg/L (Less than 5)
--- NOTE | 2016-06-01 16:01 | Discharge Summary ---
<Ira Jon Steve - Last Filed: 06/02/16 10:51> Date of Encounter: 06/02/16 Time of Encounter: 09:00 - Discharge Diagnosis (1) Sepsis Priority: Primary Status: Resolved Qualifiers: Sepsis type: sepsis due to unspecified organism Qualified Code(s): A41.9 - Sepsis, unspecified organism (2) Cellulitis Priority: Primary Status: Acute Qualifiers: Site of cellulitis: extremity Site of cellulitis of extremity: lower extremity Laterality: unspecified laterality Qualified Code(s): L03.119 - Cellulitis of unspecified part of limb (3) Pneumonia Priority: Secondary Status: Acute Qualifiers: Pneumonia type: aspiration pneumonia Laterality: left Lung location: lower lobe of lung Qualified Code(s): J69.0 - Pneumonitis due to inhalation of food and vomit (4) Chronic wound of extremity Priority: Primary Status: Chronic (5) Edema of left lower extremity Priority: Secondary Status: Chronic (6) Edema of right lower extremity Priority: Secondary Status: Chronic (7) Anemia Priority: Secondary Status: Chronic Qualifiers: Anemia type: unspecified type Qualified Code(s): D64.9 - Anemia, unspecified (8) Pulmonary hypertension Priority: Secondary Status: Chronic Comments: Severe (9) Hypokalemia Priority: Secondary Status: Resolved (10) Hyponatremia Priority: Secondary Status: Resolved (11) Hypomagnesemia Priority: Secondary Status: Resolved (12) Metabolic alkalosis Priority: Secondary Status: Resolved (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 (14) DVT prophylaxis Priority: Secondary Status: Acute - Discharge Medications Prescriptions: Albuterol Sulfate [Albuterol Inhaler] 2 puff IH Q4HR #1 hfa.aer.ad Vancomycin HCl in Dextrose 5 % [Vancomycin 1 Gram/250 ml-D5w] 1 gm IV Q12HR 14 Days Cefepime HCl/D5w [Cefepime-Dextrose 2 gm/50 ml] 2 gm IV BID 14 Days Furosemide [Lasix] 20 mg PO BIDDIURETIC #60 tablet Gentamicin Oint [Garamycin] 1 appl TP DAILY #1 tube Potassium Chloride 20 meq PO DAILY #30 tab.er.prt Home Medications: Multivitamin [Multi-Day Vitamins] 1 each PO DAILY 01/07/16 [History] Pentoxifylline [TRENtal] 400 mg PO BID 01/07/16 [History] Ascorbic Acid [Vitamin C] 500 mg PO DAILY #30 tablet 01/09/16 [Rx] Folic Acid 0.4 mg PO DAILY #30 tablet 01/09/16 [Rx] Ferrous Gluconate 324 mg PO BID #60 tablet 02/15/16 [Rx] Collagenase Oint [Santyl] 1 appl TP BID 05/23/16 [History] Gentamicin Oint [Garamycin] 1 appl TP BID 05/23/16 [History] Vancomycin HCl in Dextrose 5 % [Vancomycin 1 Gram/250 ml-D5w] 1 gm IV Q12HR 14 Days 05/31/16 [Rx] Acetaminophen [Tylenol] 650 mg PO Q6HR PRN #0 tablet 06/01/16 [Rx] Cefepime HCl/D5w [Cefepime-Dextrose 2 gm/50 ml] 2 gm IV BID 14 Days 06/01/16 [Rx ] Docusate [Colace] 100 mg PO BID PRN #0 capsule 06/01/16 [Rx] Famotidine [Pepcid] 20 mg PO BID tablet 06/01/16 [Rx] Furosemide [Lasix] 20 mg PO BIDDIURETIC #60 tablet 06/01/16 [Rx] Gentamicin Oint [Garamycin] 1 appl TP DAILY #1 tube 06/01/16 [Rx] Lactobacillus [Culturelle] 1 each PO BID cap.sprink 06/01/16 [Rx] Petrolatum, white [Vaseline] 1 appl TP BID oint.pack 06/01/16 [Rx] Potassium Chloride 20 meq PO DAILY #30 tab.er.prt 06/01/16 [Rx] Zinc Sulfate 220 mg PO DAILY capsule 06/01/16 [Rx] Albuterol Sulfate [Albuterol Inhaler] 2 puff IH Q4HR #1 hfa.aer.ad 06/02/16 [Rx] Allergies/Adverse Reactions: Allergies cephalexin [From Keflex] Allergy (Verified 03/14/16 16:16) See Comments Pt unsure of reaction. chlorpromazine [From Thorazine] Allergy (Verified 03/14/16 16:16) See Comments [place] Allergy (Verified 05/29/16 17:34) See Comments Beans Allergy (Uncoded 05/29/16 17:34) See Comments - Notes to Outpatient Provider Patient's Lasix has been increased from 20mg each day to 20mg BID. Patient is prescribed 20mEq daily. Patient will require outpatient labs each week to monitor potassium and ESR. Date of admission: 05/24/16 14:30 Primary care physician: Evgeny Griffith MD Consults: 05/25/16 09:43 Consult to Speech Therapy [CONS] Routine Comment: Evaluate, develop and implement POC Reason for Consult: swallow evaluation. Patient with recurrent aspirations. Call Completed: No 05/29/16 07:00 Consult to Podiatry [CONS] Routine Consulting Provider: [facility] Reason for Consult: wounds Call Completed: Yes 05/29/16 17:12 Consult to PICC team [Consult to Invasive Line Access Team] [CONS] Stat Reason for Consult: Line infiltrated. Line Type: PICC Discharging clinician: Max Clancy Anticipated date of discharge: 06/01/16 - Patient Status Disposition: Home, Self-Care Condition: Fair Functional capacity at discharge: independent ambulation Overall status at discharge: patient is back to baseline - Discharge Instructions Follow Up With: Enrique Bone MD [Partnered Physician] - 06/14/16 3:45 pm [facility] [place]Francisco Sandoval MD [Non-Partnered Physician] - 06/09/16 3:15 pm Evgeny Griffith MD [Primary Care Provider] - Additional Instructions: Patient's Lasix has been increased from 20mg each day to 20mg BID. Patient is prescribed 20mEq daily. Patient will require outpatient labs each week to monitor potassium and ESR. - Diet and Activity Activity: as per physical therapy, increase activity as tolerated Diet: low salt diet Hospital course: Mr. Junior is a 46 year old male who presented to [facility] on 05/22/16 with shortness of breath and deterioration of leg wounds. Patient was previously seen at [facility] 05/17/16 and diagnosed with severe sepsis due to pneumonia and osteomyelitis. He was then transferred to [facility] for wound management and discharged to home on 05/22/16 on oral antibiotics. Patient returned to [facility] in the afternoon on 05/22/16 due to inability to use his legs. Legs were weeping and painful. Patient was admitted and treated for sepsis. CXR on 05/22/16 revealed interstitial perihilar opacities compatible with pulmonary vascular redistribution and interstitial pulmonary edema, mild cardiomegaly. CT 05/23/16 demonstrated infiltration of subcutaneous tissues in lower chest and upper abdomen left greater than right suggesting edema/anasarca. CTA 05/24/16 demonstrated new patchy airspace disease in RUL with concern for aspiration PNA. Patient has chronic lower leg wounds that have been present for [address] Right lower extremity demonstrated thickening and sclerosis of the anterior tibial cortex with subtle indistinctness, small right knee joint effusion, no drainable fluid collection. CT left lower extremity demonstrated thickening and sclerosis of the posteromedial tibial cortex with subtle indistinctness, small left knee joint effusion, no drainable fluid collection. These findings were comparable to MRIs of bilateral lower extremities performed on 05/18/16. CT findings are comparable to MRI performed 05/18/16. ESR was 16 on hospital admission and increased to greater than 130 on hospital day 6. CT findings and ESR elevation were concerning for osteomyelitis. ESR is trending down and was 59 yesterday. Patient was treated with Zosyn and Vancomycin with resolution of leukocytosis and sepsis. Patient will benefit from 14 days of IV antibiotics following discharge given patient's previous treatment failure for pneumonia and lower extremity ulcers. - Time Spent with Patient Total time spent providing and/or coordinating discharge services: Greater than 30 minutes (45 minutes including time with patient and coordinating care) - Constitutional Vitals: Temp Pulse Resp BP Pulse Ox 97.7 F 94 18 112/72 92 L 06/01/16 14:59 06/01/16 14:59 06/01/16 15:42 06/01/16 14:59 06/01/16 15:42 General appearance: Present: A&O X 2, morbidly obese, pleasant, no acute distress - Head Head exam: Present: atraumatic, normocephalic - Eye Eye exam: Present: PERRL, conjuntiva pink, sclera anicteric Pupils: Present: PERRL - Neck Neck exam general surgery: Present: lymphadenopathy, supple, trachea midline - Respiratory Respiratory exam: Present: wheezes (Wheezing in all lung louise). Absent: accessory muscle use, CTAB, rales, respiratory distress, rhonchi, tachypnea - Cardiovascular Cardiovascular exam: Present: RRR, +S1, +S2. Absent: diastolic murmur, gallop, rubs, systolic murmur - GI/Abdominal GI/Abdominal exam: Present: normal bowel sounds, soft, no peritoneal signs. Absent: distended, tenderness Additional comments: Abdominal skin with edematous and waxy - Extremities Exam Extremities exam: Present: calf tenderness (due to lower leg ulcers), pedal edema (2+ tense pitting edema), tenderness (TTP to bilateral lower legs), warm, radial pulses palpable and symetrical. Absent: cyanotic Additional comments: Bilateral lower extremities with bandages in place to lower legs Bilateral upper legs with 2+ pitting edema and erythema - Neurological Exam Neurological exam: Present: CN II-XII intact, oriented X3, no focal deficits. Absent: pronater drift, facial droop, speech deficit - Skin Skin exam: Present: dry, intact - Other Additional findings: Chest CT 05/23/16 08:00 IMPRESSION: No acute process of the chest. The lungs are clear. Hiatal hernia. Infiltration of the subcutaneous tissues lower chest/upper abdomen left greater than right suggesting some edema/anasarca. D/ / 05/23/2016 08:57:20 Chuck Foley MD / [facility] Interpreting Provider: Chuck Foley MD Chest CTA 05/24/16 20:16 IMPRESSION: No evidence of significant pulmonary embolism. Suspect new patchy airspace disease right upper lobe. Concern would be for potential aspiration or pneumonia. This is new from the prior study but poorly seen with respiratory motion. Small hiatal hernia with reflux and esophageal wall thickening. Possible reflux esophagitis. Fatty infiltration liver. Atrophy of the included left kidney. D/ / Torres Mar MD / Torres Mar MD Interpreting Provider: Torres Mar MD Lower Extremity CT 05/26/16 11:46 IMPRESSION: Diffuse soft tissue and subcutaneous edema with skin thickening of the bilateral lower extremities suggesting cellulitis. Chronic appearing large shallow soft tissue ulceration along the anterior aspect of the right lower leg extending almost to the level of bone. Cortical thickening with mild irregularity of the anteromedial aspect of the right tibia may suggest osteomyelitis. Chronic appearing large soft tissue ulceration along the posteromedial aspect of the left lower leg extending almost to the level of bone distally. Cortical thickening with mild irregularity of the posteromedial aspect of the left tibia may suggest osteomyelitis. Extensive bilateral inguinal and external iliac chain bulky lymphadenopathy suggestive of reactive lymphadenopathy from the chronic bilateral lower extremity cellulitis. Small bilateral knee joint effusions with patellofemoral compartmental osteoarthritis bilaterally, left greater than right. D/ / 05/26/2016 14:00:12 Cedrick Wong MD / [facility] Interpreting Provider: Cedrick Wong MD Chest X-Ray 05/30/16 09:37 IMPRESSION: Mild CHF. No evidence of pneumonia. D/ / Sharif Castro MD / Sharif Castro MD Interpreting Provider: Sharif Castro MD - VTE Documentation of Mechanical Device: Graduated compression elastic hosiery - Attending Attestation I examined this patient and my medical decision-making was reviewed with the ANIMATION PRODUCER/PA/Advanced Practice Nurse/Resident Physician. I agree with the documented findings, disposition and treatment plan as described except to the extent set forth below. <AstonMax R - Last Filed: 06/02/16 16:36> Date of Encounter: 06/02/16 Date of admission: 05/24/16 14:30 Primary care physician: Evgeny Griffith MD Consults: 05/25/16 09:43 Consult to Speech Therapy [CONS] Routine Comment: Evaluate, develop and implement POC Reason for Consult: swallow evaluation. Patient with recurrent aspirations. Call Completed: No 05/29/16 07:00 Consult to Podiatry [CONS] Routine Consulting Provider: [facility] Reason for Consult: wounds Call Completed: Yes 05/29/16 17:12 Consult to PICC team [Consult to Invasive Line Access Team] [CONS] Stat Reason for Consult: Line infiltrated. Line Type: PICC 06/02/16 11:17 Consult to Invasive Line Access Team [CONS] Routine Reason for Consult: Picc Line Insertion Line Type: PICC Hospital course: Mr. Junior is a 46 year old male - Time Spent with Patient Total time spent providing and/or coordinating discharge services: - Constitutional Vitals: Temp Pulse Resp BP Pulse Ox 98.3 F 89 25 106/72 97 06/02/16 11:38 06/02/16 11:38 06/02/16 11:38 06/02/16 11:38 06/02/16 11:38 - Attending Attestation I examined this patient and my medical decision-making was reviewed with the ANIMATION PRODUCER/PA/Advanced Practice Nurse/Resident Physician. I agree with the documented findings, disposition and treatment plan as described except to the extent set forth below. Continue with iv antibiotics, D/W patient and his sister. Needs monitoring of vanc levels.
--- NOTE | 2016-06-01 16:59 | Physician Discharge Referral ---
Home Health/Hosp Referral Info Transfer to: Home Health Attending Provider: Eduardo Clancy MD Provider in Charge Post Discharge: PCP (Dr. Evgeny Griffith) - Diagnosis (1) Sepsis Priority: Primary Status: Acute (2) Cellulitis Priority: Primary Status: Acute (3) Pneumonia Priority: Secondary Status: Acute (4) Chronic wound of extremity Priority: Primary Status: Chronic (5) Edema of left lower extremity Priority: Secondary Status: Chronic (6) Edema of right lower extremity Priority: Secondary Status: Chronic (7) Anemia Priority: Secondary Status: Chronic (8) Pulmonary hypertension Priority: Secondary Status: Chronic (9) Hypokalemia Priority: Secondary Status: Resolved (10) Hyponatremia Priority: Secondary Status: Resolved (11) Hypomagnesemia Priority: Secondary Status: Resolved (12) Metabolic alkalosis Priority: Secondary Status: Resolved (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 For more information, call the [employer] Tobacco Quit Line at 9-373-RXOD-NOW. - Dressing/Wound Care Site: Each day dressings must be changed on bilateral lower extremities 1-Apply gentamycin ointment to ulcers 2-Cover ulcers with calcium alginate dressing 3-Cover lower legs loosely with gauze dressing 4-Cover loosely with hypoflex dressing - Diet/Nutrition Diet/Nutrition Orders: No Added Salt (CHASITY) (Fluid restriction to 1500mL per day) - Activity Activity Orders: Up ad rivka - Services Needed Following services are medically necessary services: Nursing, Physical Therapy, Occupational Therapy - Transfer Medications Prescriptions: Vancomycin HCl in Dextrose 5 % [Vancomycin 1 Gram/250 ml-D5w] 1 gm IV Q12HR 14 Days Cefepime HCl/D5w [Cefepime-Dextrose 2 gm/50 ml] 2 gm IV BID 14 Days Furosemide [Lasix] 20 mg PO BIDDIURETIC #60 tablet Gentamicin Oint [Garamycin] 1 appl TP DAILY #1 tube Potassium Chloride 20 meq PO DAILY #30 tab.er.prt Home Medications: Multivitamin [Multi-Day Vitamins] 1 each PO DAILY 01/07/16 [History] Pentoxifylline [TRENtal] 400 mg PO BID 01/07/16 [History] Ascorbic Acid [Vitamin C] 500 mg PO DAILY #30 tablet 01/09/16 [Rx] Folic Acid 0.4 mg PO DAILY #30 tablet 01/09/16 [Rx] Ferrous Gluconate 324 mg PO BID #60 tablet 02/15/16 [Rx] Collagenase Oint [Santyl] 1 appl TP BID 05/23/16 [History] Gentamicin Oint [Garamycin] 1 appl TP BID 05/23/16 [History] Vancomycin HCl in Dextrose 5 % [Vancomycin 1 Gram/250 ml-D5w] 1 gm IV Q12HR 14 Days 05/31/16 [Rx] Acetaminophen [Tylenol] 650 mg PO Q6HR PRN #0 tablet 06/01/16 [Rx] Cefepime HCl/D5w [Cefepime-Dextrose 2 gm/50 ml] 2 gm IV BID 14 Days 06/01/16 [Rx ] Docusate [Colace] 100 mg PO BID PRN #0 capsule 06/01/16 [Rx] Famotidine [Pepcid] 20 mg PO BID tablet 06/01/16 [Rx] Furosemide [Lasix] 20 mg PO BIDDIURETIC #60 tablet 06/01/16 [Rx] Gentamicin Oint [Garamycin] 1 appl TP DAILY #1 tube 06/01/16 [Rx] Lactobacillus [Culturelle] 1 each PO BID cap.sprink 06/01/16 [Rx] Petrolatum, white [Vaseline] 1 appl TP BID oint.pack 06/01/16 [Rx] Potassium Chloride 20 meq PO DAILY #30 tab.er.prt 06/01/16 [Rx] Zinc Sulfate 220 mg PO DAILY capsule 06/01/16 [Rx] Allergies/Adverse Reactions: Allergies cephalexin [From Keflex] Allergy (Verified 03/14/16 16:16) See Comments Pt unsure of reaction. chlorpromazine [From Thorazine] Allergy (Verified 03/14/16 16:16) See Comments [place] Allergy (Verified 05/29/16 17:34) See Comments [place] Allergy (Uncoded 05/29/16 17:34) See Comments Certification: Further, I certify that my clinical findings support that this patient is homebound (i.e. absences from home require considerable and taxing effort and are for medical reasons or yazidi services or infrequently or short duration when for other reasons) because: Homebound Reason: Leaving home requires considerable and taxing effort due to condition Attestation: My signature below is to certify that this patient is under my care and that I, or nurse practitioner, or a physician's clinic assistant working with me, has a face-to -face encounter with this patient.
--- NOTE | 2016-06-01 17:29 | Internal Med Progress Note ---
<Ira Jon Steve - Last Filed: 06/01/16 17:27> Date of Encounter: 06/01/16 Time of Encounter: 15:27 - Assessment and plan (1) Sepsis Current Visit: Yes Status: Acute Assessment and plan: Patient meets sepsis criteria with WBC of 22, T 100.6, and tachycardia. Most likely source is secondary to his chronic wounds of the lower extremities. CT of the chest was performed and dose not show any acute processes. Blood cultures have been collected and are pending. UA was ordered and is pending. No organ dysfunction and normal lactic acid so this is not severe sepsis. Currently he is on Meropenem and Vancomycin. we will continue as this is good coverage. We can tailor once we have culture results. Duration of antibiotics will depend on clinical course. However most likely he will need a long course of antibiotics given chronic wounds and possible chronic osteomyelitis seen on MRI from 05/18/16 with overlying chronic wounds of the lower extremities. however inflammatory markers are quite low. I have also requested culture results and records form [facility] as well. 05/24/16 No major events overnight. Still meets SIRS criteria with T 100.9 and Leukocytosis. However leukocytosis is trending down. I spoke with Dr. Terrazas over the phone. He has been seeing this patient for many years. He is currently trying to get the patient an appointment at either the [facility] or [facility] in [place] to be evaluated for potential skin grafts. We will continue current antibiotics and follow with culture results. Once the patient is more stable will plan to DC with close follow up with Dr. Terrazas. 05/25/16 Patient no longer meets SIRS criteria this AM Leukocytosis has resolved blood cultures show no growth to date. On Meropenem and Vancomycin Consider deescalating antibiotics in the AM. 05/26/16 Patient has had return of fever and WBC trending up. With tachycardia. Meets Sepsis criteria again. We have redrawn blood cultures. Patient not tolerating meropenem due to burning. we will switch to Zosyn. We had dicontinued vancomycin. However I spoke with pharmacy and he should still be therapeutic. will get a CT of the Lower extremities to rule out intramuscular abscess. 05/27/16 Patient afebrile, max HR 106, WBC trending down. Continues to meet sepsis criteria. Blood cultures are pending. Respiratory viral panel negative. CT Right lower extremity with thickening and sclerosis of the anterior tibial cortex with subtle indistinctness, small right knee joint effusion, no drainable fluid collection CT left lower extremity with thickening and sclerosis of the posteromedial tibial cortex with subtle indistinctness, small left knee joint effusion, no drainable fluid collection These findings are comparable to MRI performed 05/18/16 ESR today 87, up from 16 four days ago CRP today 83, 62 from 16 four days ago Continue Zosyn Will restart Vanc for treatment of cellulitis I spoke to Dr. Terrazas in great detail at 11:49am regarding this patient. He has been treating wounds on patient's lower extremites for years. He states that he does not believe that patient has osteomyelitis. 05/28/16 Patient afebrile, no tachycardia, leukocytosis resolved, however trending up to >130 from 87 yesterday, CRP 77 today from 83 yesterday. Does not meet sepsis criteria. Blood cultures are negative. Respiratory viral panel negative. CT Right lower extremity with thickening and sclerosis of the anterior tibial cortex with subtle indistinctness, small right knee joint effusion, no drainable fluid collection. CT left lower extremity with thickening and sclerosis of the posteromedial tibial cortex with subtle indistinctness, small left knee joint effusion, no drainable fluid collection. CT findings are comparable to MRI performed 05/18/16 ESR today 87, up from 16 four days ago CRP today 83, 62 from 16 four days ago Continue Zosyn Continue Vanc for treatment of cellulitis 05/29/16 Patient afebrile, no tachycardia, leukocytosis resolved, ESR was greater than 130 yesterday. Does not meet sepsis criteria. Blood cultures are negative. Respiratory viral panel negative. CT Right lower extremity with thickening and sclerosis of the anterior tibial cortex with subtle indistinctness, small right knee joint effusion, no drainable fluid collection. CT left lower extremity with thickening and sclerosis of the posteromedial tibial cortex with subtle indistinctness, small left knee joint effusion, no drainable fluid collection. CT findings are comparable to MRI performed 05/18/16 ESR today 87, up from 16 four days ago CRP today 83, 62 from 16 four days ago Continue Zosyn Continue Vanc 05/30/16 Patient's leukocytosis has resolved Repeat CXR with evidence of mild CHF, no infiltrates Will continue Zosyn and Vanc Plan to transition patient back to home at discharge with IV abx 3// Leukocytosis resolved D/C Zosyn Start Cefipime (day#1) Continue Vanc Plan for discharge tomorrow with IV abx 3/2/17 Leukocytosis resolved Continue cefepime (day#2) Continue Vancomycin Will discharge in am with IV abx Qualifiers: Sepsis type: sepsis due to unspecified organism Qualified Code(s): A41.9 - Sepsis, unspecified organism (2) Cellulitis Current Visit: Yes Status: Acute Assessment and plan: As stated above. Qualifiers: Site of cellulitis: extremity Site of cellulitis of extremity: lower extremity Laterality: unspecified laterality Qualified Code(s): L03.119 - Cellulitis of unspecified part of limb (3) Pneumonia Current Visit: No Status: Acute Assessment and plan: Continue plan as above Resolving, continue IV abx Qualifiers: Pneumonia type: aspiration pneumonia Laterality: left Lung location: lower lobe of lung Qualified Code(s): J69.0 - Pneumonitis due to inhalation of food and vomit (4) Chronic wound of extremity Current Visit: Yes Status: Chronic Assessment and plan: As stated above Wound care consulted (5) Edema of left lower extremity Current Visit: Yes Status: Chronic Assessment and plan: Patient's edema still present Albumin increased to 2.7 yesterday Continue daily lasix to 20mg po BID Patient with protein-calorie malnutrition with albumin 1.8 upon admission Patient will require improvement of nutrition status to heal wounds on lower extremities Allocation Analyst consulted for the purpose of discussing nutrition plan with family (6) Edema of right lower extremity Current Visit: Yes Status: Chronic Assessment and plan: Plan as above (7) Anemia Current Visit: Yes Status: Chronic Assessment and plan: Patient has chronic anemia and iron deficiency. Significant bleeding from wounds per sisters account. May require iron infusion and endoscopy in the future. However no active bleeding at this time. Additionally he likely has some chronic anemia from chronic infections. No IV iron at this time as he currently has an active infection. Hg trending down with Hg 7.2 this AM Transfuse one unit PRBC 05/26/15 s/P 1 unit PRBC. stable Now Hg 9.2 continue to monitor 05/27/16 Hb 8.2 this am will continue to monitor 05/28/16 Hb 9.1 this am up following holding fluids. Will continue to monitor. 05/29/16 Hb 8.8 this am Continue to hold fluids. Will continue to monitor. 05/30/16 Hb 7.5 today Patient assymptomatic Continue to monitor 05/31/16 Patient Hb 7.5 today Stable Continue to monitor 06/01/16 Hb stable, 7.6 today Continue to monitor Qualifiers: Anemia type: unspecified type Qualified Code(s): D64.9 - Anemia, unspecified (8) Pulmonary hypertension Current Visit: Yes Status: Chronic Assessment and plan: Severe Likely secondary to JOHN Follow up with pulmonology as outpatient (9) Hypokalemia Current Visit: Yes Status: Resolved Assessment and plan: Resolved (10) Hyponatremia Current Visit: Yes Status: Resolved Assessment and plan: Resolved (11) Hypomagnesemia Current Visit: Yes Status: Resolved Assessment and plan: Resolved (12) Metabolic alkalosis Current Visit: Yes Status: Resolved Assessment and plan: resolved (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 Also had recent GI bleed and has not had endoscopy since that time. With chronic lower extremity wounds compression devices are not able to be placed at this time. - Time Spent With Patient 25 - 35 minutes (45 minutes including time with patient and time coordinating care) - Subjective Interval history: Mr. Junior states that he is doing well today. He is coloring while sitting in bed. - Constitutional Vitals: Temp Pulse Resp BP Pulse Ox 97.7 F 94 18 112/72 92 L 06/01/16 14:59 06/01/16 14:59 06/01/16 15:42 06/01/16 14:59 06/01/16 15:42 General appearance: Present: A&O X 2, morbidly obese, pleasant, no acute distress - Head Head exam: Present: atraumatic, normocephalic - Eye Eye exam: Present: PERRL, conjuntiva pink, sclera anicteric Pupils: Present: PERRL - Neck Neck exam general surgery: Present: supple, trachea midline. Absent: lymphadenopathy - Respiratory Respiratory exam: Present: wheezes (Present in all lung louise, greater at right lung base). Absent: accessory muscle use, rales, respiratory distress, rhonchi - Cardiovascular Cardiovascular exam: Present: RRR, +S1, +S2. Absent: diastolic murmur, gallop, rubs, systolic murmur - GI/Abdominal GI/Abdominal exam: Present: normal bowel sounds, soft, no peritoneal signs. Absent: distended, tenderness - Extremities Exam Extremities exam: Present: calf tenderness (due to lower leg ulcers), pedal edema (2+ pitting edema), warm, radial pulses palpable and symetrical. Absent: cyanotic Additional comments: Bilateral lower extremities with bandages in place to lower legs Bilateral upper legs with 2+ pitting edema and erythema - Neurological Exam Neurological exam: Present: CN II-XII intact, no focal deficits. Absent: pronater drift, facial droop, speech deficit - Skin Skin exam: Present: dry, intact Internal Medicine: Result - Labs CBC & Chem 7: 06/01/16 05:58 06/01/16 05:58 Labs: Short CBC 06/01/16 Range/Units 05:58 WBC 5.5 (4.3-11.1) K/mcL Hgb 7.6 L (12.9-16.9) g/dL Hct 27.4 L (37.5-50.1) % Plt Count 327 (140-400) K/mcL Neutrophils # 2.6 (1.6-8.9) K/mcL BMP 06/01/16 05:58 Sodium 141 Potassium 4.0 Chloride 104 Carbon Dioxide 29 BUN 17 Creatinine 0.75 Glucose 102 H Calcium 8.1 L Liver Function 06/01/16 Range/Units 05:58 Total Bilirubin 0.3 (0.2-1.2) mg/dL AST 32 (5-34) Units/L ALT 20 (0-55) Units/L Alkaline Phosphatase 86 (38-126) Units/L Albumin 2.7 L (3.5-5.0) g/dL - ABG Interpretation ABG results: ABG ABG pH 7.45 pH Units (7.32-7.45) 05/24/16 19:25 ABG pCO2 44 mmHg (35-45) 05/24/16 19:25 ABG pO2 90 mmHg (85-104) 05/24/16 19:25 ABG O2 Saturation 97 % (95-98) 05/24/16 19:25 PT/INR, D-dimer PT 12.1 Seconds (9.4-12.1) 05/22/16 22:03 - Impressions Chest CT 05/23/16 08:00 IMPRESSION: No acute process of the chest. The lungs are clear. Hiatal hernia. Infiltration of the subcutaneous tissues lower chest/upper abdomen left greater than right suggesting some edema/anasarca. D/ / 05/23/2016 08:57:20 Chuck Foley MD / patti Interpreting Provider: Chuck Foley MD Chest CTA 05/24/16 20:16 IMPRESSION: No evidence of significant pulmonary embolism. Suspect new patchy airspace disease right upper lobe. Concern would be for potential aspiration or pneumonia. This is new from the prior study but poorly seen with respiratory motion. Small hiatal hernia with reflux and esophageal wall thickening. Possible reflux esophagitis. Fatty infiltration liver. Atrophy of the included left kidney. D/ / Torres Mar MD / Torres Mar MD Interpreting Provider: Torres Mar MD Lower Extremity CT 05/26/16 11:46 IMPRESSION: Diffuse soft tissue and subcutaneous edema with skin thickening of the bilateral lower extremities suggesting cellulitis. Chronic appearing large shallow soft tissue ulceration along the anterior aspect of the right lower leg extending almost to the level of bone. Cortical thickening with mild irregularity of the anteromedial aspect of the right tibia may suggest osteomyelitis. Chronic appearing large soft tissue ulceration along the posteromedial aspect of the left lower leg extending almost to the level of bone distally. Cortical thickening with mild irregularity of the posteromedial aspect of the left tibia may suggest osteomyelitis. Extensive bilateral inguinal and external iliac chain bulky lymphadenopathy suggestive of reactive lymphadenopathy from the chronic bilateral lower extremity cellulitis. Small bilateral knee joint effusions with patellofemoral compartmental osteoarthritis bilaterally, left greater than right. D/ / 05/26/2016 14:00:12 Cedrick Wong MD / gabriel Interpreting Provider: Cedrick Wong MD Chest X-Ray 05/30/16 09:37 IMPRESSION: Mild CHF. No evidence of pneumonia. D/ / Sharif Castro MD / Sharif Castro MD Interpreting Provider: Sharif Castro MD - VTE Documentation of Mechanical Device: Graduated compression elastic hosiery Consult Discharge Plan - Plan Referrals: Enrique Bone MD [Partnered Physician] - 06/14/16 3:45 pm Francisco Blackmon MD [Non-Partnered Physician] - 06/09/16 3:15 pm Evgeny Griffith MD [Primary Care Provider] - Prescriptions: Vancomycin HCl in Dextrose 5 % [Vancomycin 1 Gram/250 ml-D5w] 1 gm IV Q12HR 14 Days Cefepime HCl/D5w [Cefepime-Dextrose 2 gm/50 ml] 2 gm IV BID 14 Days Furosemide [Lasix] 20 mg PO BIDDIURETIC #60 tablet Gentamicin Oint [Garamycin] 1 appl TP DAILY #1 tube Potassium Chloride 20 meq PO DAILY #30 tab.er.prt - Attending Attestation I examined this patient and my medical decision-making was reviewed with the TANKERMAN/PA/Advanced Practice Nurse/Resident Physician. I agree with the documented findings, disposition and treatment plan as described except to the extent set forth below. <Max Clancy - Last Filed: 06/01/16 18:06> Date of Encounter: 06/01/16 - Constitutional Vitals: Temp Pulse Resp BP Pulse Ox 97.7 F 94 18 112/72 92 L 06/01/16 14:59 06/01/16 14:59 06/01/16 15:42 06/01/16 14:59 06/01/16 15:42 Internal Medicine: Result - Labs CBC & Chem 7: 06/01/16 05:58 06/01/16 05:58 Labs: Short CBC 06/01/16 Range/Units 05:58 WBC 5.5 (4.3-11.1) K/mcL Hgb 7.6 L (12.9-16.9) g/dL Hct 27.4 L (37.5-50.1) % Plt Count 327 (140-400) K/mcL Neutrophils # 2.6 (1.6-8.9) K/mcL BMP 06/01/16 05:58 Sodium 141 Potassium 4.0 Chloride 104 Carbon Dioxide 29 BUN 17 Creatinine 0.75 Glucose 102 H Calcium 8.1 L Liver Function 06/01/16 Range/Units 05:58 Total Bilirubin 0.3 (0.2-1.2) mg/dL AST 32 (5-34) Units/L ALT 20 (0-55) Units/L Alkaline Phosphatase 86 (38-126) Units/L Albumin 2.7 L (3.5-5.0) g/dL - ABG Interpretation ABG results: ABG ABG pH 7.45 pH Units (7.32-7.45) 05/24/16 19:25 ABG pCO2 44 mmHg (35-45) 05/24/16 19:25 ABG pO2 90 mmHg (85-104) 05/24/16 19:25 ABG O2 Saturation 97 % (95-98) 05/24/16 19:25 PT/INR, D-dimer PT 12.1 Seconds (9.4-12.1) 05/22/16 22:03 - Attending Attestation I examined this patient and my medical decision-making was reviewed with the TANKERMAN/PA/Advanced Practice Nurse/Resident Physician. I agree with the documented findings, disposition and treatment plan as described except to the extent set forth below. Agree with Dr. Jon D/C in am with iv antibiotics.
[2016-06-01] MEDS: Gentamicin Oint 15 GM TUBE TP SCH (18:39)
[2016-06-01] MEDS: Acetaminophen 325 MG TABLET PO PRN (21:19)
[2016-06-02 02:37] LABS: Alanine Aminotransferase 20 Units/L (0-55); Albumin 2.4 g/dL (3.5-5.0); Albumin/Globulin Ratio 0.7 (1.1-2.2); Alkaline Phosphatase 88 Units/L (38-126); Aspartate Amino Transferase 34 Units/L (5-34); BUN/Creatinine Ratio 27 (6-26); Bilirubin,Total 0.3 mg/dL (0.2-1.2); Blood Urea Nitrogen 20 mg/dL (8-26); Calcium 8.1 mg/dL (8.6-10.8); Carbon Dioxide 27 mEq/L (19-29); Chloride 108 mEq/L (98-109); Globulin 3.6 g/dL (2.4-3.5); Glucose 115 mg/dL (70-99); Osmolality,Calculated 304 (280-300); Potassium 4.4 mEq/L (3.5-4.5); Sodium 145 mEq/L (136-145); eGFR For African Americans > 60 (> 60); eGFR For Non-African Americans > 60 (> 60)
[2016-06-02] MEDS ORDERED: Vancomycin 1,000 MG in D5% in Water 250 ML IVPB SCH (03:00)
[2016-06-02] MEDS: Ipratropium/Albuterol Neb 3 ML IH SCH ×2 (05:37→11:14)
[2016-06-02 05:46] LABS: Hematocrit 27.4 % (37.5-50.1); Hemoglobin 7.9 g/dL (12.9-16.9); Immature Platelets 2.1 % (1.1-6.1); Mean Corpuscular HGB Conc 28.8 g/dL (31.6-35.5); Mean Corpuscular Volume 83.3 fL (83.0-100.0); Mean Platelet Volume 10.5 fL (9.4-12.4); Platelet Count 323 K/mcL (140-400); Red Blood Count 3.29 M/mcL (4.19-5.50); Red Cell Distribution Width 19.9 % (11.5-14.5)
[2016-06-02] MEDS: Cefepime HCl 2,000 MG in D5% in Water (Mini-Bag+) 100 ML IVPB SCH (05:53)
[2016-06-02 06:20] LABS: Platelet Estimate Normal (Normal)
[2016-06-02 06:21] LABS: Eosinophils # 0.9 K/mcL (0.0-0.6); Lymphocytes # 1.3 K/mcL (0.6-4.6); Monocytes # 0.5 K/mcL (0.0-1.3); Neutrophils # 2.3 K/mcL (1.6-8.9)
[2016-06-02 06:22] LABS: Anisocytosis 1+ (Not Present); Polychromasia 1+ (Not Present)
[2016-06-02] MEDS: Zinc Sulfate 220 MG CAPSULE PO SCH (09:20)
[2016-06-02] MEDS: Multivit/Ca/Min/Fe/FA 1 TAB TABLET PO SCH (09:20)
[2016-06-02] MEDS: Ascorbic Acid 500 MG TABLET PO SCH (09:20)
[2016-06-02] MEDS: Famotidine 20 MG TABLET PO SCH (09:20)
[2016-06-02] MEDS: Lactobacillus 1 EACH CAP.SPRINK PO SCH (09:20)
[2016-06-02] MEDS: Furosemide 20 MG TABLET PO SCH (09:20)
[2016-06-02] MEDS: Petrolatum, White OINT.PACK TP SCH (09:21)
[2016-06-02] MEDS: Gentamicin Oint 15 GM TUBE TP SCH (09:21)
[2016-06-02] MEDS ORDERED: Lidocaine -MPF 1% 5 ML AMPUL INFILT ONE (11:17)
[2016-06-02 11:39] VITALS: BP 106/72
== END 2016-06-02 12:52 | disposition home or self-care (01) | DRG 871 ==
LOC: 3NENU 20:45 → EMEROO 20:45 → SUATTDRO 05-23 00:49 → 3NENU 05-23 01:12 → 3BNU 05-24 07:27 → 3ANU 05-30 19:34
PROVIDERS: ADMIT Internal Medicine; ATTEND Internal Medicine

== ENCOUNTER 2016-06-02 21:27 | Inpatient (IN) ==
[2016-06-02] MEDS ORDERED: Ipratropium/Albuterol Neb 3 ML ONE (21:41)
[2016-06-02] MEDS ORDERED: Ipratropium/Albuterol Neb 3 ML IH ONE (21:44)
[2016-06-02] MEDS ORDERED: methylPREDNISolone 125 MG/2 ML VIAL IVP ONE (21:44)
--- NOTE | 2016-06-02 21:51 | Emergency Department Note ---
Disposition Clinical Impression: Hypoxia, HCAP (healthcare-associated pneumonia), Chronic wound of extremity Disposition: Admitted As Inpatient Condition: Fair Time of Disposition: 23:42 SOB HPI - General Chief Complaint: ED Shortness of Breath/Dyspnea Stated Complaint: LUCIANO Source: patient, family, EMS Limitations: no limitations Nursing Notes Reviewed: Yes Vital Signs Reviewed: Yes - History of Present Illness 46-year-old male with a history of pneumonia was recently hospitalized for 3 weeks for pneumonia discharged home with cefepime and vancomycin, he is discharged home today from the hospital but was not given oxygen, he was at home and then home health came, he was repositioned and became profoundly hypoxic with a oxygen sat in the 80s, worsening shortness of breath and work of breathing. He is transferred back to [facility] by EMS, mostly complaining of shortness of breath and cough. The psychiatric social worker supervisor Lynne saw the patient in the hospital did come the ER to visit and stated that the patient had not been set up for home oxygen. The patient denies chest pain abdominal pain headache fever chills. Hematuria Pt Subjective Complaint: shortness of breath Severity: moderate Consistency/Duration: intermittent Improves with: oxygen Worsens with: lying flat, movement Known history of: asthma Associated symptoms: Reports: cough, wheezing. Denies: chest pain, pain with inspiration, fever Treatment prior to arrival: oxygen Cough present: Yes Cough Description: Voluntary Cough Frequency: Intermittent Sputum production: Yes - Related Data Home oxygen amount: none Home Medications Medication Instructions Recorded Confirmed Multivitamin [Multi-Day Vitamins] 1 each PO DAILY 01/07/16 05/23/16 Pentoxifylline [TRENtal] 400 mg PO BID 01/07/16 05/23/16 Collagenase Oint [Santyl] 1 appl TP BID 05/23/16 05/23/16 Gentamicin Oint [Garamycin] 1 appl TP BID 05/23/16 05/23/16 Previous Rx's Medication Instructions Recorded Ascorbic Acid [Vitamin C] 500 mg PO DAILY #30 tablet 01/09/16 Folic Acid 0.4 mg PO DAILY #30 tablet 01/09/16 Ferrous Gluconate 324 mg PO BID #60 tablet 02/15/16 Vancomycin HCl in Dextrose 5 % 1 gm IV Q12HR 14 Days 05/31/16 [Vancomycin 1 Gram/250 ml-D5w] Acetaminophen [Tylenol] 650 mg PO Q6HR PRN #0 tablet 06/01/16 Cefepime HCl/D5w 2 gm IV BID 14 Days 06/01/16 [Cefepime-Dextrose 2 gm/50 ml] Docusate [Colace] 100 mg PO BID PRN #0 capsule 06/01/16 Famotidine [Pepcid] 20 mg PO BID tablet 06/01/16 Furosemide [Lasix] 20 mg PO BIDDIURETIC #60 tablet 06/01/16 Gentamicin Oint [Garamycin] 1 appl TP DAILY #1 tube 06/01/16 Lactobacillus [Culturelle] 1 each PO BID cap.sprink 06/01/16 Petrolatum, white [Vaseline] 1 appl TP BID oint.pack 06/01/16 Potassium Chloride 20 meq PO DAILY #30 tab.er.prt 06/01/16 Zinc Sulfate 220 mg PO DAILY capsule 06/01/16 Albuterol Sulfate [Albuterol 2 puff IH Q4HR #1 hfa.aer.ad 06/02/16 Inhaler] Allergies Allergy/AdvReac Type Severity Reaction Status Date / Time cephalexin [From Keflex] Allergy See Verified 03/14/16 16:16 Comments chlorpromazine Allergy See Verified 03/14/16 16:16 [From Thorazine] Comments [place] Allergy See Verified 05/29/16 17:34 Comments Beans Allergy See Uncoded 05/29/16 17:34 Comments Review of Systems: All systems were reviewed with historian and negative except as per below, or as documented in the HPI. Constitutional: Denies: fever, chills, weight changes Eyes: Denies: vision changes, eye pain ENT: Denies: nasal congestion, sore throat CV: Denies: chest pain, palpitations, leg swelling Resp: +cough, dyspnea, wheeze GI: Denies: abdominal pain, N/V/D/C, hematochezia, melena Neuro: Denies: DE, weakness, sensory changes, gait difficulty Psych: Denies: anxiety, depression All systems ED: reviewed and negative except as stated. (Review of systems obtained from historian, however somewhat limited secondary to mental status baseline) Past Medical History - Past Medical History Attestation: Yes The following information was validated with the patient. Source: patient Medical history: Reports: CHF, dementia, GERD, GI bleed, myocardial infarction, venous stasis, other Surgical history: Reports: cholecystectomy, other Psychiatric history: Reports: no psych history, other - Social History Smoking Status: Never smoker Smokeless Tobacco Status: No Alcohol use: Reports: none Drug use: Reports: none Physical Exam Constitutional: Hypoxic middle-aged male appears in mild respiratory distress HEENT: NCAT, sclera anicteric, PERRLA bilaterally, normal external ears bilaterally, nasal septum nondeviated, average dentition, MMM Neck: normal inspection, neck is supple, trachea midline, no JVD Resp: Coarse inspiratory expiratory wheezes, diminished breath sounds at the bases bilaterally. CV: RRR, no m/g/r, Pulses +2 Rad, +2 DP/PT bilaterally, bilateral +2 pitting edema GI: normal inspection, Soft, NTND, BS present and normoactive Back: normal inspection, no tenderness to palpation Psych: normal mood, normal affect Skin: Right-sided PICC line appears without any rash or erythema, clean, dry, intact dressing bilaterally lower extremities with venous stasis dermatitis - General Limitations: no limitations General appearance: alert, in no apparent distress Course Course Narrative: 46-year-old male bounce back for hypoxia after discharge, was treated in the hospital for 3 days for pneumonia. No evidence of new worsening pneumonia however coarse inspiratory expiratory wheezes, deciding on 4 L in the emergency Department 94%, will try do nebs and Solu-Medrol, admitted to hospitalist service after workup. - Reevaluation(s) Reevaluation #1: Dr. Angeles accepted patient, for admission and hypoxia. Time: 23:38 Vital Signs Temperature 100.2 F H 06/02/16 21:29 Pulse Rate 91 06/02/16 21:29 Respiratory Rate 22 06/02/16 21:29 Blood Pressure 100/60 06/02/16 21:29 O2 Sat by Pulse Oximetry 100 06/02/16 21:29 Temperature 100.2 F H 06/02/16 21:29 Pulse Rate 92 06/02/16 22:36 Respiratory Rate 20 06/02/16 22:36 Blood Pressure 102/62 06/02/16 22:36 O2 Sat by Pulse Oximetry 98 06/02/16 22:36 Oxygen Delivery Oxygen Delivery Nasal Cannula Shortness of Breath/Dyspnea - MDM Narrative Medical decision making narrative: 46 her old male admitted to hospitalist for hypoxia previous pneumonia currently on vancomycin cefepime treatment. - Differential Diagnosis Likely: acute exacerbation of chronic obstructive airways disease, congestive heart failure, pneumonia - Medical Records Medical records reviewed: Yes I reviewed the patient's medical records. - Lab Data Lab results reviewed: Yes I reviewed the patient's lab results. Result diagrams: 06/02/16 22:01 06/02/16 22:01 Lab Results 06/02/16 06/02/16 06/02/16 Range/Units 22:01 22:01 22:01 WBC 4.9 (4.3-11.1) K/mcL RBC 3.18 L (4.19-5.50) M/mcL Hgb 7.6 L (12.9-16.9) g/dL Hct 26.2 L (37.5-50.1) % MCV 82.4 L (83.0-100.0) fL MCH 23.9 L (28.0-33.3) pg MCHC 29.0 L (31.6-35.5) g/dL RDW 19.9 H (11.5-14.5) % Plt Count 320 (140-400) K/mcL MPV 9.3 L (9.4-12.4) fL Seg Neutrophils % 37.0 % Lymphocytes % 29.0 % Monocytes % 12.0 % Eosinophils % 22.0 % Neutrophils # 1.8 (1.6-8.9) K/mcL Lymphocytes # 1.4 (0.6-4.6) K/mcL Monocytes # 0.6 (0.0-1.3) K/mcL Eosinophils # 1.1 H (0.0-0.6) K/mcL Platelet Estimate Normal (Normal) Polychromasia 1+ A (Not Present) Hypochromasia Present A (Not Present) Anisocytosis 1+ A (Not Present) Microcytosis Present A (Not Present) Sodium 141 (136-145) mEq/L Potassium 4.0 (3.5-4.5) mEq/L Chloride 105 (98-109) mEq/L Carbon Dioxide 29 (19-29) mEq/L BUN 20 (8-26) mg/dL Creatinine 0.70 L (0.72-1.25) mg/dL Est GFR ( Amer) > 60 (> 60) Est GFR (Non-Af Amer) > 60 (> 60) BUN/Creatinine Ratio 29 H (6-26) Glucose 104 H (70-99) mg/dL Calculated Osmolality 295 (280-300) Lactic Acid 0.9 (0.5-2.2) mmol/L Calcium 8.2 L (8.6-10.8) mg/dL Troponin I (0-0.03) ng/mL B-Natriuretic Peptide (0-100) pg/mL 06/02/16 06/02/16 Range/Units 22:01 22:01 WBC (4.3-11.1) K/mcL RBC (4.19-5.50) M/mcL Hgb (12.9-16.9) g/dL Hct (37.5-50.1) % MCV (83.0-100.0) fL MCH (28.0-33.3) pg MCHC (31.6-35.5) g/dL RDW (11.5-14.5) % Plt Count (140-400) K/mcL MPV (9.4-12.4) fL Seg Neutrophils % % Lymphocytes % % Monocytes % % Eosinophils % % Neutrophils # (1.6-8.9) K/mcL Lymphocytes # (0.6-4.6) K/mcL Monocytes # (0.0-1.3) K/mcL Eosinophils # (0.0-0.6) K/mcL Platelet Estimate (Normal) Polychromasia (Not Present) Hypochromasia (Not Present) Anisocytosis (Not Present) Microcytosis (Not Present) Sodium (136-145) mEq/L Potassium (3.5-4.5) mEq/L Chloride (98-109) mEq/L Carbon Dioxide (19-29) mEq/L BUN (8-26) mg/dL Creatinine (0.72-1.25) mg/dL Est GFR ( Amer) (> 60) Est GFR (Non-Af Amer) (> 60) BUN/Creatinine Ratio (6-26) Glucose (70-99) mg/dL Calculated Osmolality (280-300) Lactic Acid (0.5-2.2) mmol/L Calcium (8.6-10.8) mg/dL Troponin I 0.00 (0-0.03) ng/mL B-Natriuretic Peptide 273 H (0-100) pg/mL - Radiology Data Radiology results reviewed: Yes I reviewed the patient's radiology results. Chest X-Ray 06/02/16 21:44 IMPRESSION: No acute process. Mild cardiomegaly. Prominence of the interstitial markings which has slightly improved. New right PICC line with the tip in the SVC. D/ / 06/02/2016 22:25:14 Juan Barry MD / olga Interpreting Provider: Juan Barry MD - EKG Data EKG attestation: Yes I reviewed and interpreted this EKG. EKG shows normal: Reports: sinus rhythm Rate: Reports: normal (90 bpm [place] 111 QRS 73 QTC 396 S V2 stable from previous January 2016) Rhythm: Reports: NSR T wave inversions noted in: Reports: v1, v2 Interpretation: Reports: no acute changes, unchanged when compared to prior tracing (date) - Core Measures AMI Core Measures Followed: No Attestation Statement - Attestation Attestation: I, Nas Wagner MD, personally performed a history and physical exam of the patient and discussed their management with the resident. I reviewed the resident's note and agree with the documented findings, medical decision making , and plan of care. 46-year-old male who was just discharged from the hospital earlier today for pneumonia. He presents here to the emergency department with a complaint of increasing shortness of breath after going home. He was discharged home to receive IV antibiotics at home however there were no arrangements for home oxygen. Family talked with manager social responsibility and advised that they are unable to take care of him at home and he does not have oxygen at home. On examination patient is a well-developed obese male in no distress. He is alert and oriented 3. There is no cyanosis or diaphoresis. Breath sounds are equal bilaterally with some coarse bilateral rhonchi and expiratory wheezes. Heart regular rate and rhythm. Abdomen soft with normal bowel sounds. After discussion with manager social responsibility we will readmit the patient to the hospital and they will work on arrangements for placement on Sunday. The hospitalist, Dr. Angeles, was consulted and accepted admission of the patient.
[2016-06-02 22:08] LABS: Mean Corpuscular Hemoglobin 23.9 pg (28.0-33.3); Mean Platelet Volume 9.3 fL (9.4-12.4)
[2016-06-02 22:09] LABS: Hematocrit 26.2 % (37.5-50.1); Hemoglobin 7.6 g/dL (12.9-16.9); Mean Corpuscular Volume 82.4 fL (83.0-100.0); Monocytes # 0.6 K/mcL (0.0-1.3); Platelet Count 320 K/mcL (140-400); Red Blood Count 3.18 M/mcL (4.19-5.50); Red Cell Distribution Width 19.9 % (11.5-14.5)
[2016-06-02 22:20] LABS: BUN/Creatinine Ratio 29 (6-26); Blood Urea Nitrogen 20 mg/dL (8-26); Calcium 8.2 mg/dL (8.6-10.8); Carbon Dioxide 29 mEq/L (19-29); Chloride 105 mEq/L (98-109); Glucose 104 mg/dL (70-99); Osmolality,Calculated 295 (280-300); Sodium 141 mEq/L (136-145); eGFR For African Americans > 60 (> 60); eGFR For Non-African Americans > 60 (> 60)
[2016-06-02 22:35] LABS: Anisocytosis 1+ (Not Present); Eosinophils # 1.1 K/mcL (0.0-0.6); Hypochromasia Present (Not Present); Lymphocytes # 1.4 K/mcL (0.6-4.6); Neutrophils # 1.8 K/mcL (1.6-8.9); Polychromasia 1+ (Not Present)
[2016-06-02 22:36] LABS: Microcytosis Present (Not Present)
[2016-06-02 22:37] LABS: Platelet Estimate Normal (Normal)
[2016-06-03] MEDS ORDERED: Albuterol 2.5 MG/3 ML NEBULIZER IH PRN (00:29)
[2016-06-03] MEDS ORDERED: Naloxone 0.4 MG/ML INJ IVP PRN (00:29)
[2016-06-03] MEDS ORDERED: *HR* Promethazine 25 MG/ML VIAL IVP PRN (00:29)
[2016-06-03] MEDS ORDERED: *HR* Morphine 2 MG/ML SYRINGE IVP PRN (00:29)
[2016-06-03] MEDS ORDERED: 0.9 % Sodium Chloride 1,000 ML IVC SCH (00:30)
--- NOTE | 2016-06-03 00:42 | Internal Med History&Physical ---
Date of Encounter: 06/03/16 Time of Encounter: 00:39 Assessment and Plan (1) Acute and chronic respiratory failure with hypoxia Status: Acute . (2) Aspiration into respiratory tract Status: Acute . Qualifiers: Encounter type: subsequent encounter Qualified Code(s): T17.908D - Unspecified foreign body in respiratory tract, part unspecified causing other injury, subsequent encounter (3) HCAP (healthcare-associated pneumonia) Status: Acute . (4) Chronic wound of extremity Status: Chronic . (5) Acute blood loss anemia Status: Acute . (6) At risk for accident in home Status: Acute . (7) At risk for acid-base imbalance Status: Acute . (8) At risk for activity intolerance Status: Acute . (9) At risk for acute confusion Status: Acute . (10) Cellulitis Status: Acute Qualifiers: Site of cellulitis: extremity Site of cellulitis of extremity: lower extremity Laterality: unspecified laterality Qualified Code(s): L03.119 - Cellulitis of unspecified part of limb (11) Infected stasis ulcer of left lower extremity Status: Acute . (12) Infected stasis ulcer of right lower extremity Status: Acute . (13) Osteomyelitis of left lower extremity Status: Suspected . (14) Osteomyelitis of right lower extremity Status: Suspected . (15) SIRS due to infectious process with acute organ dysfunction Status: Acute . (16) Symptomatic anemia Status: Acute . (17) Debility, unspecified Status: Chronic . (18) Iron deficiency anemia due to chronic blood loss Status: Chronic . (19) Malabsorption of iron Status: Chronic . (20) Morbid obesity with BMI of 50.0-59.9, adult Status: Chronic . (21) Morbid obesity with alveolar hypoventilation Status: Chronic . (22) Prader-Willi syndrome Status: Chronic . (23) Protein-calorie malnutrition, moderate Status: Chronic . (24) Pulmonary hypertension Status: Chronic . (25) Dependence on continuous supplemental oxygen Status: Acute . (26) Sepsis Status: Acute Qualifiers: Sepsis type: sepsis due to unspecified organism Qualified Code(s): A41.9 - Sepsis, unspecified organism Internal Medicine - H&P: HPI Chief complaint: Difficulty breathing Admitted From: Emergency Dept Plans for Post Hospital Care: Home History of present illness: Mr. Junior is a 46 year old male with Selvin-Willi Syndrome/MRDD/behavioral disturbances, chronic recurrent bilateral lower extremity venostasis ulcerations , chronic recurrent bilateral lower extremity cellulitis ,chronic dependent lower extremity edema/?lymphedema, chronic lower extremity osteomyelitis , chronic anemia (IV iron and RBC transfusion dependent), iron deficiency/ malabsorption, diastolic CHF/LVEF 60%, chronic hypoxic respiratory failure continuous oxygen dependent, ?OHS?JOHN, GERD, morbid obesity with severe deconditioning, osteoarthritis, nonsmoker. The patient was visited and interviewed and examined. Patient is a readmission being discharged earlier this morning for prolonged hospital stay for management of acute respiratory failure and associated pneumonia. Patient was discharged home without continuous oxygen therapy. In the family's presence he was found to be increasingly dyspneic at rest. Return to the emergency department for further evaluation and disposition. Findings suggested continued bouts of respiratory failure with associated E infiltrates. Workup and treatment will proceed. Cumulative laboratory and radiographic data base was reviewed, considered and discussed. Pertinent ancillary medical records including ECW and PCI documentation was reviewed and considered. Given the patient's presenting concerns, past medical history, clinical findings and symptoms, he is admitted at this time will undergo further evaluation and disposition. Orders were written as per the computerized physician chief order dispatcher system.......................................................................... .................... Consultative opinions will be sought as clinical circumstances justify. product manager financial services/case management consultation /focused discharge planning. Facilitation of home oxygen therapy delivery prior to patient's arrival home following discharge. Ambulatory/travel oxygen delivery system also to be authorized. Pain management needs will be addressed. Laboratory and radiographic data base will be updated as appropriate. Studies include: Cultures of blood urine sputum, Ddimer, PT/INR, APTT, cardiac injury panel, BNP, metabolic and hematologic panel, magnesium, phosphorus, ionized calcium, thyroid panel, lipid profile, A1c, C-peptide, CRP, sed rate, respiratory infection profile, respiratory virus panel, blood gas, UA, lactic acid, type/screen, serologies, etc. Precautions: Aspiration, fall, delirium protocol/surveillance initiated. Telemetry with continuous hemodynamic monitoring and pulse oximetry initiated. Orthostatic vital signs. Empiric antibiotic coverage: Intravenous vancomycin, Zosyn and Levaquin pending culture data. Transfusion protocols: Type and screen for 2 units of packed red blood cells to be transfused when available. IV Bumex given prior to receive blood products. IV furosemide to be given after each unit of blood received. Pretreatment to include IV Benadryl and by mouth Tylenol. This transfusion hemoglobin and hematocrit to be obtained. Special studies: CT chest, chest x-ray, telemetry, EKG, overnight pulse oximetry /BiPAP qualification test. Recommendation: outpatient sleep study and pulmonary function testing with DLCO. Swallowing evaluation, modified barium r/o dysphagia r/o silent aspiration Pulmonary toilet: Incentive spirometry, aerosol bronchodilator, mucolytic, antitussive, supplemental oxygen. Corticosteroid therapy. CPAP/BiPAP supplemental oxygen delivery. Aerosol Mucomyst therapy. Fluid and electrolyte repletion efforts will proceed. Careful attention to fluid balance and renal recovery will be emphasized. Avoidance of nephrotoxic exposure and adverse drug drug interaction in the setting of impaired renal function will be monitored closely. Acute coronary syndrome protocol/surveillance initiated. Heart Failure protocol/surveillance initiated:1500-1800mls total fluid restriction per 24hrs. CHASITY/heart heathy diet restriction. DVT and PUD prophylaxis initiated: PPI therapy, intermittent pneumatic cuffs. Subcutaneous heparin was held due to thrombocytopenia. Early ambulation will be encouraged. Immunization updates recommended. Influenza and pneumococcal vaccinations as part of ongoing preventative healthcare recommendations strongly recommended. Smoking cessation counseling briefly addressed. Patient is a nonsmoker. Advanced care directive discussion briefly addressed. Patient does not declare any healthcare restrictions at this time. Cardiovascular risk appraisal and cardiovascular risk reduction efforts will be emphasized. Physical and occupational therapy consulted to assess patient's functional capacity and progress mobility as his circumstances permit. Sliding scale insulin coverage, ADA dietary restraint and schedule an as-needed basis fingerstick glucose assessments were initiated. Nutrition/diabetes education counseling may be considered as circumstances justify. Outpatient medication schedules will be reviewed, confirmed and facilitated as appropriate. Reconciliation of home treatments including adjustments, substitutions and reintroduction into the treatment regimen will address necessary maintenance therapies for chronic pre-existing medical conditions. Plan of care has been reviewed and discussed in detail with the patient. Questions addressed. Hospital course dictated by clinical findings, treatment response and potential consultative interventions. Patient is at risk for further acute clinical decline and morbidty due to presenting chief complaints, clinical findings and comorbidities. Condition is serious. Prognosis is guarded. CODE STATUS is full. Past Med Surg Social Fam HX - Past Medical History Source: old records reviewed Medical history: CHF, dementia, GERD, GI bleed, myocardial infarction, venous stasis, other Psychiatric history: no psych history, other - Past Surgical History Surgical History: cholecystectomy, other - Social History Smoking Status: Never smoker Smokeless Tobacco Status: No Alcohol use: none Drug use: none Occupational status: disabled Current living situation: With Family Activity Level: Independent ambulation, Mostly sedentary Recent Out of Country Travel Within the Last 8 Weeks: No Exposure or Possible Exposure to Illness During Travel: No - Family History Father Living Status: Still Living Hx Family Cardiac Disorders: Yes (htn) Hx Family Cancer: Yes (thyroid ca) Mother Living Status: Hx Family Cardiac Disorders: Yes (chf) Hx Family Respiratory Disorders: Yes (pneumonia) Hx Family Endocrine Disorder: Yes (diabetic) Internal Medicine - H&P: Meds Multivitamin [Multi-Day Vitamins] 1 each PO DAILY 01/07/16 [History] Ascorbic Acid [Vitamin C] 500 mg PO DAILY #30 tablet 01/09/16 [Rx] Folic Acid 0.4 mg PO DAILY #30 tablet 01/09/16 [Rx] Ferrous Gluconate 324 mg PO BID #60 tablet 02/15/16 [Rx] Gentamicin Oint [Garamycin] 1 appl TP BID 05/23/16 [History] Furosemide [Lasix] 20 mg PO BIDDIURETIC #60 tablet 06/01/16 [Rx] Lactobacillus [Culturelle] 1 each PO BID cap.sprink 06/01/16 [Rx] Potassium Chloride 20 meq PO DAILY #30 tab.er.prt 06/01/16 [Rx] Zinc Sulfate 220 mg PO DAILY capsule 06/01/16 [Rx] Ipratropium/Albuterol Neb [Duoneb] 3 ml IH QIDR 30 Days 06/05/16 [Rx] Acetaminophen [Acetaminophen ER] 650 mg PO Q6H 06/14/16 [History] Albuterol Sulfate [Ventolin Hfa] 2 puff IH Q4H 06/14/16 [History] Collagenase Oint [Santyl] 15 gm TP BID 06/14/16 [History] Docusate [Colace] 100 mg PO BID 06/14/16 [History] Famotidine [Heartburn Prevention] 20 mg PO BID 06/14/16 [History] Allergies cephalexin [From Keflex] Allergy (Verified 03/14/16 16:16) See Comments Pt unsure of reaction. chlorpromazine [From Thorazine] Allergy (Verified 03/14/16 16:16) See Comments [place] Allergy (Verified 05/29/16 17:34) See Comments [place] Allergy (Uncoded 05/29/16 17:34) See Comments ROS unobtainable: due to mental status All Systems PM: A 10-system review of systems was performed and is negative for pertinent findings except as documented above in the HPI. - Constitutional Constitutional: as per HPI - EENT Eyes: as per HPI Ears: as per HPI Nose, mouth and throat: as per HPI - Cardiovascular Cardiovascular ROS IM: as per HPI - Respiratory Respiratory: as per HPI - Gastrointestinal Gastrointestinal: as per HPI - Genitourinary Genitourinary ROS male: as per HPI - Musculoskeletal Musculoskeletal ROS IM: as per HPI - Integumentary Integumentary IM: as per HPI - Neurological Neurological ROS: as per HPI - Psychiatric Psychiatric: as per HPI - Endocrine Endocrine IM: as per HPI - Hematologic/Lymphatic Hematologic/Lymphatic: as per HPI - Allergic/Immunologic Allergic/Immunologic: as per HPI - Constitutional Vitals: Temp Pulse Resp BP Pulse Ox 100.2 F H 92 18 108/65 98 06/02/16 21:29 06/02/16 22:36 06/03/16 00:08 06/03/16 00:08 06/02/16 22:36 General appearance: Present: A&O X 2, mild distress, morbidly obese. Absent: cooperative, disheveled, answers questions appropriately - Head Head exam: Present: atraumatic, normocephalic - Eye Eye exam: Present: EOMI, PERRL, conjuntiva pink, sclera anicteric Pupils: Present: normal accommodation, PERRL - ENT ENT exam: Present: mucous membranes moist, normal oropharynx - Neck Neck exam general surgery: Present: full ROM, supple, trachea midline. Absent: lymphadenopathy - Respiratory Respiratory exam: Present: chest wall tenderness, decreased breath sounds, rhonchi, wheezes. Absent: accessory muscle use, rales - Cardiovascular Cardiovascular exam: Present: distant heart sounds, RRR, +S1, +S2. Absent: diastolic murmur, gallop, rubs, systolic murmur - GI/Abdominal GI/Abdominal exam: Present: normal bowel sounds, soft, no peritoneal signs. Absent: distended, tenderness - Extremities Exam Extremities exam: Present: calf tenderness, full ROM, pedal edema, tenderness, warm, radial pulses palpable and symetrical. Absent: cyanotic, normal inspection - Neurological Exam Neurological exam: Present: alert, altered, CN II-XII intact, motor sensory deficit. Absent: oriented X3, strengths equal and symetr throughout, pronater drift, facial droop, speech deficit - Expanded Neurological Exam Neurological exam expanded: Present: protecting the airway. Absent: expressive aphasia, receptive aphasia Patient oriented to: Present: person, place. Absent: time Speech: Present: garbled Coma Scale Eye Opening: To Voice Coma Scale Motor Response: Localizes to Pain Coma Scale Verbal Response: Confused Coma Scale Total: 12 - Psychiatric Psychiatric exam: Present: anxious, flat affect - Skin Skin exam: Present: dry, erythema, excoriation, intact, warm Internal Med - H&P Results - Labs CBC & Chem 7: 06/05/16 04:10 06/05/16 04:10 - Impressions Vital Signs Temp Pulse Resp BP Pulse Ox 06/03/16 00:08 18 108/65 06/02/16 22:36 92 20 102/62 98 06/02/16 22:02 100 06/02/16 21:49 32 95 06/02/16 21:29 100.2 F H 91 22 100/60 100 Intake and Output 06/02/16 06/02/16 06/03/16 15:59 23:59 07:59 Other: Weight 95.255 kg Short CBC 06/02/16 Range/Units 22:01 WBC 4.9 (4.3-11.1) K/mcL Hgb 7.6 L (12.9-16.9) g/dL Hct 26.2 L (37.5-50.1) % Plt Count 320 (140-400) K/mcL Neutrophils # 1.8 (1.6-8.9) K/mcL BMP 06/02/16 Range/Units 22:01 Sodium 141 (136-145) mEq/L Potassium 4.0 (3.5-4.5) mEq/L Chloride 105 (98-109) mEq/L Carbon Dioxide 29 (19-29) mEq/L BUN 20 (8-26) mg/dL Creatinine 0.70 L (0.72-1.25) mg/dL Glucose 104 H (70-99) mg/dL Calcium 8.2 L (8.6-10.8) mg/dL Cardiac Enzymes 06/02/16 Range/Units 22:01 Troponin I 0.00 (0-0.03) ng/mL Abnormal lab results RBC 3.18 M/mcL (4.19-5.50) L 06/02/16 22:01 Hgb 7.6 g/dL (12.9-16.9) L 06/02/16 22:01 Hct 26.2 % (37.5-50.1) L 06/02/16 22:01 MCV 82.4 fL (83.0-100.0) L 06/02/16 22:01 MCH 23.9 pg (28.0-33.3) L 06/02/16 22:01 MCHC 29.0 g/dL (31.6-35.5) L 06/02/16 22:01 RDW 19.9 % (11.5-14.5) H 06/02/16 22:01 MPV 9.3 fL (9.4-12.4) L 06/02/16 22:01 Eosinophils # 1.1 K/mcL (0.0-0.6) H 06/02/16 22:01 Polychromasia 1+ (Not Present) A 06/02/16 22:01 Hypochromasia Present (Not Present) A 06/02/16 22:01 Anisocytosis 1+ (Not Present) A 06/02/16 22:01 Microcytosis Present (Not Present) A 06/02/16 22:01 Creatinine 0.70 mg/dL (0.72-1.25) L 06/02/16 22:01 BUN/Creatinine Ratio 29 (6-26) H 06/02/16 22:01 Glucose 104 mg/dL (70-99) H 06/02/16 22:01 Calcium 8.2 mg/dL (8.6-10.8) L 06/02/16 22:01 B-Natriuretic Peptide 273 pg/mL (0-100) H 06/02/16 22:01 Allergies Allergy/AdvReac Type Severity Reaction Status Date / Time cephalexin [From Keflex] Allergy See Verified 03/14/16 16:16 Comments chlorpromazine Allergy See Verified 03/14/16 16:16 [From Thorazine] Comments [place] Allergy See Verified 05/29/16 17:34 Comments [place] Allergy See Uncoded 05/29/16 17:34 Comments Laboratory Results WBC 4.9 K/mcL (4.3-11.1) 06/02/16 22:01 RBC 3.18 M/mcL (4.19-5.50) L 06/02/16 22:01 Hgb 7.6 g/dL (12.9-16.9) L 06/02/16 22:01 Hct 26.2 % (37.5-50.1) L 06/02/16 22:01 MCV 82.4 fL (83.0-100.0) L 06/02/16 22:01 MCH 23.9 pg (28.0-33.3) L 06/02/16 22:01 MCHC 29.0 g/dL (31.6-35.5) L 06/02/16 22:01 RDW 19.9 % (11.5-14.5) H 06/02/16 22:01 Plt Count 320 K/mcL (140-400) 06/02/16 22:01 MPV 9.3 fL (9.4-12.4) L 06/02/16 22:01 Seg Neutrophils % 37.0 % 06/02/16 22:01 Lymphocytes % 29.0 % 06/02/16 22:01 Monocytes % 12.0 % 06/02/16 22:01 Eosinophils % 22.0 % 06/02/16 22:01 Neutrophils # 1.8 K/mcL (1.6-8.9) 06/02/16 22:01 Lymphocytes # 1.4 K/mcL (0.6-4.6) 06/02/16 22:01 Monocytes # 0.6 K/mcL (0.0-1.3) 06/02/16 22:01 Eosinophils # 1.1 K/mcL (0.0-0.6) H 06/02/16 22:01 Platelet Estimate Normal (Normal) 06/02/16 22:01 Polychromasia 1+ (Not Present) A 06/02/16 22:01 Hypochromasia Present (Not Present) A 06/02/16 22:01 Anisocytosis 1+ (Not Present) A 06/02/16 22:01 Microcytosis Present (Not Present) A 06/02/16 22:01 Sodium 141 mEq/L (136-145) 06/02/16 22:01 Potassium 4.0 mEq/L (3.5-4.5) 06/02/16 22:01 Chloride 105 mEq/L (98-109) 06/02/16 22:01 Carbon Dioxide 29 mEq/L (19-29) 06/02/16 22:01 BUN 20 mg/dL (8-26) 06/02/16 22:01 Creatinine 0.70 mg/dL (0.72-1.25) L 06/02/16 22:01 Est GFR ( Amer) > 60 (> 60) 06/02/16 22:01 Est GFR (Non-Af Amer) > 60 (> 60) 06/02/16 22:01 BUN/Creatinine Ratio 29 (6-26) H 06/02/16 22:01 Glucose 104 mg/dL (70-99) H 06/02/16 22:01 Calculated Osmolality 295 (280-300) 06/02/16 22:01 Lactic Acid 0.9 mmol/L (0.5-2.2) 06/02/16 22:01 Calcium 8.2 mg/dL (8.6-10.8) L 06/02/16 22:01 Troponin I 0.00 ng/mL (0-0.03) 06/02/16 22:01 B-Natriuretic Peptide 273 pg/mL (0-100) H 06/02/16 22:01 Impressions Chest X-Ray 06/02/16 21:44 IMPRESSION: No acute process. Mild cardiomegaly. Prominence of the interstitial markings which has slightly improved. New right PICC line with the tip in the SVC. D/ / 06/02/2016 22:25:14 Juan Barry MD / olga Interpreting Provider: Juan Barry MD - Attending Attestation Allergies cephalexin [From Keflex] Allergy (Verified 03/14/16 16:16) See Comments Pt unsure of reaction. chlorpromazine [From Thorazine] Allergy (Verified 03/14/16 16:16) See Comments [place] Allergy (Verified 05/29/16 17:34) See Comments [place] Allergy (Uncoded 05/29/16 17:34) See Comments Home Medications Medication Instructions Recorded Confirmed Type Multivitamin [Multi-Day Vitamins] 1 each PO DAILY 01/07/16 06/14/16 History Gentamicin Oint [Garamycin] 1 appl TP BID 05/23/16 06/14/16 History Acetaminophen [Acetaminophen ER] 650 mg PO Q6H 06/14/16 06/14/16 History Albuterol Sulfate [Ventolin Hfa] 2 puff IH Q4H 06/14/16 06/14/16 History Collagenase Oint [Santyl] 15 gm TP BID 06/14/16 06/14/16 History Docusate [Colace] 100 mg PO BID 06/14/16 06/14/16 History Famotidine [Heartburn Prevention] 20 mg PO BID 06/14/16 06/14/16 History Prescriptions Medication Instructions Recorded Type Ipratropium/Albuterol Neb [Duoneb] 3 ml IH QIDR 30 Days 06/05/16 Rx Medications Discontinued Medications Acetaminophen (Tylenol) 1,000 mg PO ONCE ONE Stop: 06/02/16 23:34 Last Admin: 06/02/16 23:40 Dose: 1,000 mg Acetaminophen (Tylenol) 650 mg PO Q6HR PRN PRN Reason: Mild Pain (1-3) Stop: 12/03/16 00:27 Last Admin: 06/05/16 16:53 Dose: 650 mg Re-Assess: [facility] Pain Assessment Document 06/05/16 17:38 [facility] (Rec: 06/05/16 17:59 [id number]) Patient's Stated Pain Level Pain Intensity 0 Acetaminophen (Tylenol) 650 mg PO ONCE ONE Stop: 06/03/16 06:13 Last Admin: 06/03/16 06:36 Dose: 650 mg Albuterol Sulfate (Proventil Neb) 2.5 mg IH Q2H PRN PRN Reason: Shortness Of Breath/Wheezing Stop: 12/03/16 00:30 Albuterol/Ipratropium (Duoneb) Confirm Administered Dose 3 ml .ROUTE .STK-MED ONE Stop: 06/02/16 21:42 Albuterol/Ipratropium (Duoneb) 9 ml IH ONCE ONE Stop: 06/02/16 21:45 Last Admin: 06/02/16 21:48 Dose: 9 ml Albuterol/Ipratropium (Duoneb) 3 ml IH QIDR [place] Stop: 12/03/16 05:01 Last Admin: 06/06/16 10:44 Dose: 3 ml Ascorbic Acid (Vitamin C) 500 mg PO DAILY [place] Stop: 12/03/16 09:01 Last Admin: 06/06/16 08:32 Dose: 500 mg Bumetanide (Bumex) 1 mg IVP ONCE STA Stop: 06/03/16 06:13 Last Admin: 06/03/16 06:37 Dose: 1 mg Collagenase (Santyl) 1 appl TP BID [place] Stop: 12/03/16 09:01 Last Admin: 06/06/16 08:34 Dose: Diphenhydramine HCl (Benadryl) 25 mg IVP ONCE ONE Stop: 06/03/16 06:13 Last Admin: 06/03/16 06:37 Dose: 25 mg Docusate Sodium (Colace) 100 mg PO BID PRN; Protocol PRN Reason: Constipation Stop: 12/03/16 00:27 Enoxaparin Sodium (Lovenox) 40 mg SQ 0600 [facility] PRN Reason: Protocol Stop: 12/03/16 06:01 Last Admin: 06/06/16 06:25 Dose: 40 mg Famotidine (Pepcid) 20 mg PO BID [place] PRN Reason: Protocol Stop: 12/03/16 09:01 Last Admin: 06/06/16 08:32 Dose: 20 mg Ferrous Sulfate (Ferrous Sulfate) 325 mg PO BID [place] Stop: 12/03/16 09:01 Last Admin: 06/06/16 08:32 Dose: 325 mg Folic Acid (Folic Acid) 1 mg PO DAILY [place] Stop: 12/03/16 09:01 Last Admin: 06/06/16 08:33 Dose: 1 mg Furosemide (Lasix) 20 mg PO BIDDIURETIC [place] Stop: 12/03/16 08:01 Last Admin: 06/06/16 08:32 Dose: 20 mg Furosemide (Lasix) 20 mg IVP BID [facility] Stop: 06/03/16 21:01 Last Admin: 06/04/16 01:50 Dose: 20 mg Furosemide (Lasix) Confirm Administered Dose 20 mg IVP .STK-MED ONE Stop: 06/04/16 01:46 Last Admin: 06/04/16 03:07 Dose: Gentamicin Sulfate (Garamycin) 1 appl TP BID [place] Stop: 12/03/16 09:01 Last Admin: 06/06/16 08:33 Dose: Hydrophilic Ointment (Vaseline) 1 appl TP BID [facility] Stop: 12/03/16 09:01 Last Admin: 06/06/16 08:34 Dose: Sodium Chloride (0.9 % Sodium Chloride) 1,000 mls @ 50 mls/hr IVC .Q20H [facility] Stop: 12/03/16 00:31 Last Admin: 06/03/16 02:17 Dose: 50 mls/hr Cefepime HCl 2,000 mg/ (Dextrose) 100 mls @ 66.667 mls/hr IVPB BID [facility] Stop: 12/03/16 09:01 Last Admin: 06/04/16 07:20 Dose: Vancomycin HCl 1,000 mg/ (Dextrose) 250 mls @ 167 mls/hr IVPB Q12H [place] PRN Reason: Protocol Stop: 12/03/16 06:01 Last Admin: 06/04/16 07:02 Dose: Vancomycin HCl 750 mg/ (Dextrose) 100 mls @ 100 mls/hr IVPB Q12H [place] Stop: 12/03/16 18:01 Sodium Chloride (0.9 % Sodium Chloride) 1,000 mls @ 25 mls/hr IVC .Q24H [facility] Stop: 12/03/16 06:14 Last Admin: 06/05/16 06:48 Dose: 25 mls/hr Sodium Chloride (0.9 % Sodium Chloride) Confirm Administered Dose 250 mls @ as directed .ROUTE .STK-MED ONE Stop: 06/03/16 17:14 Last Admin: 06/04/16 02:52 Dose: Vancomycin HCl 1,000 mg/ (Dextrose) 250 mls @ 167 mls/hr IVPB Q12H [place] PRN Reason: Protocol Stop: 12/04/16 00:01 Last Infusion: 06/05/16 01:02 Dose: 0 mls/hr Sodium Chloride (0.9 % Sodium Chloride) Confirm Administered Dose 250 mls @ as directed .ROUTE .STK-MED ONE Stop: 06/03/16 21:36 Last Admin: 06/04/16 02:52 Dose: Cefepime HCl 2,000 mg/ (Dextrose) 100 mls @ 66.667 mls/hr IVPB BID [place] Stop: 12/04/16 03:01 Last Infusion: 06/06/16 10:37 Dose: 0 mls/hr Vancomycin HCl 750 mg/ (Dextrose) 250 mls @ 250 mls/hr IVPB Q12H [place] Stop: 12/05/16 12:01 Last Infusion: 06/06/16 14:12 Dose: 0 mls/hr Lactobacillus Acidophilus/Rhamnosus (Culturelle) 1 each PO BID [facility] Stop: 12/03/16 09:01 Last Admin: 06/06/16 08:32 Dose: 1 each Methylprednisolone (Solu-Medrol) 125 mg IVP ONCE ONE Stop: 06/02/16 21:45 Last Admin: 06/02/16 22:36 Dose: 125 mg Methylprednisolone (Solu-Medrol) 40 mg IVP Q6HR [place] Stop: 12/03/16 12:01 Last Admin: 06/04/16 06:29 Dose: 40 mg Methylprednisolone (Solu-Medrol) 40 mg IVP ONCE STA Stop: 06/03/16 06:17 Last Admin: 06/03/16 06:38 Dose: 40 mg Morphine Sulfate (Morphine Sulfate) 2 mg IVP Q4HR PRN PRN Reason: Severe Pain (7-10) Stop: 12/03/16 00:30 Multivitamins/Calcium (Thera M Plus) 1 tab PO DAILY [place] Stop: 12/03/16 09:01 Last Admin: 06/06/16 08:32 Dose: 1 tab Naloxone HCl (Narcan) 0.4 mg IVP Q2MIN PRN PRN Reason: Opioid Reversal Stop: 12/03/16 00:30 Non-Formulary Medication (Cefepime Hcl/D5w [Cefepime-Dextrose 2 Gm/50 Ml]) 2 gm IV BID [facility] Stop: 12/03/16 09:01 Non-Formulary Medication (Vancomycin Hcl In Dextrose 5 % [Vancomycin 1 Gram/250 Ml-D5w]) 1 gm IV Q12HR [place] Stop: 12/03/16 06:01 Ondansetron HCl (Zofran) 4 mg IVP ONCE ONE PRN Reason: Protocol Stop: 06/05/16 02:25 Last Admin: 06/05/16 04:52 Dose: Not Given Non-Admin Reason: Patient Refused Oxycodone HCl (Roxicodone) 5 mg PO Q6HR PRN PRN Reason: Moderate Pain (4-6) Stop: 12/03/16 00:30 Last Admin: 06/06/16 02:19 Dose: 5 mg Re-Assess: [facility] Pain Assessment Document 06/06/16 03:04 WDT (Rec: 06/06/16 06:13 WDT [id number]) Patient's Stated Pain Level Pain Intensity 3 Pentoxifylline (Trental) 400 mg PO BID [place] Stop: 12/03/16 09:01 Last Admin: 06/03/16 08:01 Dose: 400 mg Pharmacy Consult (Kinetic, Aminoglycoside) 1 each .STK-MED ONE Stop: 06/06/16 16:20 Potassium Chloride (Potassium Chloride) 20 meq PO DAILY [place] Stop: 12/03/16 09:01 Last Admin: 06/06/16 08:33 Dose: 20 meq Prednisone (Prednisone) 40 mg PO DAILY [facility] Stop: 12/03/16 09:01 Promethazine HCl (Phenergan) 12.5 mg IVP Q6HR PRN PRN Reason: Nausea And Vomiting Stop: 12/03/16 00:30 Zinc Sulfate (Zinc Sulfate) 220 mg PO DAILY [place] Stop: 12/03/16 09:01 Last Admin: 06/06/16 08:32 Dose: 220 mg Microbiology Results 06/02/16 22:01 Peripheral Venipuncture Blood Culture - Final No growth. Nursing Notes 06/07/16 16:58 Social Work Note by Lynne Vivar CORPORATE TREASURY ANALYST received t/c from Jodi, staff member from Dr. Griffith's office (patient's PCP) asking for update on patient's IV ATB need. MARCELA informed Jodi that patient was placed in ECF on 06/06/16 to continue IV ATB therapy and receive rehab. Jodi verbalized understanding the continued f/u with Dr. Griffith for and IV ATB therapy was no longer needed at this time. Initialized on 06/07/16 16:58 - END OF NOTE 06/06/16 16:01 Nurse Note by Analisa Nicholson Patient is upset and yelling that he does not want to go to [facility]. Nurse janitorial account manager Magan at bedside talking with patient. Initialized on 06/06/16 16:01 - END OF NOTE 06/06/16 15:48 Nurse Note by Analisa Nicholson Report called to Rashida at [facility] and updated on patient status and care needs. Initialized on 06/06/16 15:48 - END OF NOTE 06/06/16 15:32 Nurse Note by Harris Mcnulty Patient refuses to be put on his side, explained the importance of turning but, still refuses. Initialized on 06/06/16 15:32 - END OF NOTE 06/06/16 13:23 PT Acute Daily Note by Rosalba Zhang Physical Therapy PT Acute Daily Note. Start: 06/05/16 12: 57 Freq: Status: Active Document 06/06/16 12:52 ADH (Rec: 06/06/16 13:23 ADH [id number]) General/Subjective General Date of Admission 06/05/16 Referring Provider Tristen Pak PT Visit # 2 Diagnosis Osteomyelitis, unspecified PT Treatment Diagnosis Weakness Subjective Subjective Pt was in supine this date agreeable to participate with therapist post encouragement. Per nursing pt is tenative D/C today to transfer to [facility]. Precautions Restrictions/Precautions Cognition Impaired Bed/Chair Alarm Objective Therapeutic Exercise General Exercise Trunk/Lower Extremity Gluteal Set Supine Hip Abduction/Adduction Unilateral Supine Heel Slides Regional Exercise Completed Bilateral Lower Extremity Exercise Type Active Assisted Range of Motion Active Range of Motion # Sets 2 Repetitions 10 Exercise Tolerance Poor Exercise Comment Pt was able to complete exercises with encouragement to fulfill each set to best ability. Pt had limited ROM with exercises but was able to improve his form with increased cueing. Rehab Education Education Provided Education Topic Home Exercise Program Teaching Recipient Patient Teaching Method Verbal Response to Teaching Reinforcement needed Unable to comprehend Education Provided: Details Reviewed HEP with pt this morning but will need further follow up. Assessment and Plan Assessment Assessment Pt was able to complete this session with continued cues of encouragement. Pt showed limited ROM but was trying with instructions given and AAROM provided to continue gaining additional ROM. Disposition at end of Eval/Treatment In bed Bed Alarm Call light/phone within reach Tray table within reach All needs met Plan Plan Continue to progress as tolerated. Time Started 09:43 Time Ended 10:00 Total Treatment Time (Min) (min) 17 Timed Code Treatment Minutes (min) 15 D/C Needs Estimated PT Needs at Discharge SNF/ECF Charge Sheet G-Code Therapies Therapeutic Exercise 1 Documentation Complete PT Charges/Documentation Finished? Yes Last Visit Is patient being discharged from PT No today? Preliminary Draft Until Electronically Signed by Supervising Therapist Initialized on 06/06/16 13:23 - END OF NOTE 06/06/16 13:22 Nurse Note by Analisa Nicholson Family request Dr Terrazas to see patient prior to discharge. Contacted Santana Llanos FOREX TRADER and she advised for patient to f/u outpatient. Initialized on 06/06/16 13:22 - END OF NOTE 06/06/16 12:53 Clinical Case Mgmt by Kellen Varma Patient is a recent readmission; previously discharged home. Patient being followed by social media intern at this time for discharge planning. Goal is for patient to potentially go to an [facility] or [facility]. Informed SARA Batista to let this CM know if any CM needs come up. Clinical Case Mgmt Is Patient Currently Being Yes Followed By Navigation Navigation Team/Teams Oncology Following Patient What Brought The Patient To "Couldn't Breathe" The Hospital Does The Patient Have A Yes Physician That They See Regularly Regular Provider Evgeny Griffith Patient Referred To [id number] No Does The PT Have Any Trouble No Getting To Their Appointment Are There Any Meds The PT Has No Trouble Getting Filled Monthly Home Environment House Resides With Sibling,Other Does The Patient Plan To No Return Home Is There A Caregiver At Home Yes To Help The Patient Wheel Chair Now Is The Patient Appropriate For No Case Management Is The Patient Appropriate For Yes Social Work Consult Referrals Made Yes Is The PT Appropriate For No Navigation Or Payer Case Mgmt Initialized on 06/06/16 12:53 - END OF NOTE 06/06/16 12:09 OT Acute/Nursery Daily N. by Nathalie Greco Occupational Therapy OT Acute Daily Note Start: 06/05/16 16: 22 Freq: Status: Active Document 06/06/16 12:07 KMT (Rec: 06/06/16 12:09 KMT [email or web address]) General/Subjective General Date of Admission 06/05/16 Referring Provider Tristen Pak OT Visit # 2 Diagnosis Osteomyelitis, unspecified OT Treatment Diagnosis Weakness Subjective Subjective patient agreeable. talking about favorite show "Zapata is Right" Precautions Restrictions/Precautions Cognition Impaired Bed/Chair Alarm Objective Therapeutic Exercise Exercise Comment supine yellow theraband x10 reps x5 exercises, needed at times Monse for achieving full ROM and attention to task; leaning to left in bed and resistive to repositioning Assessment/Plan Assessment Assessment fair tolerance Plan Plan Continue per POC in collaboration with OTR Time Started 11:10 Time Ended 11:28 Total Treatment Time (Min) (min) 18 Charge Sheet G-Code Therapies Therapeutic Exercise 1 Documentation Complete OT Charges/Documentation Finished? Yes Preliminary Draft Until Electronically Signed by Supervising Therapist Initialized on 06/06/16 12:09 - END OF NOTE 06/06/16 10:55 Social Work Note by Lynne Vivar CORPORATE TREASURY ANALYST received message from Edwige NUGENT, stating Dr. Busch is ready to d/c patient to ECF. CORPORATE TREASURY ANALYST contacted Dr. Busch at [phone] and informed physician CORPORATE TREASURY ANALYST needs BiPAP settings to inform ECF to have and to verify ECF can accommodate the IV ATB that was mentioned was needed by Sandee Vancomycin and Cefepime. Physician to consult respiratory and obtain BiPAP settings and return call to CORPORATE TREASURY ANALYST. CORPORATE TREASURY ANALYST attempted to contact AC at [facility], but AC was unavailable. CORPORATE TREASURY ANALYST spoke with Ran, [facility] staff, and asked about IV ATB and ECFs ability to provide for patient. Per Ran, he will notify staff this is needed while admitted to ECF and he asked CORPORATE TREASURY ANALYST to make sure there is an order for the IV ATB at d/c. CORPORATE TREASURY ANALYST will inform physician once physician returns call to CORPORATE TREASURY ANALYST re: BiPAP settings. SS to follow. HENS has been completed previously for placement and is to accompany patient to ECF at d/c. Initialized on 06/06/16 10:55 - END OF NOTE 06/06/16 04:03 Nurse Note by Adan Encarnacion Pt refusing dressing change to bilat LE and telemetry at this time. Will continue to educate and encourage pt to allow for dressing change and telemetry. Initialized on 06/06/16 04:03 - END OF NOTE 06/06/16 01:36 Nurse Note by Trish Hernández Patient refuses bipap. Patient refuses dressing change to bilat legs. Initialized on 06/06/16 01:36 - END OF NOTE 06/05/16 22:36 Nurse Note by Maday Bailey PT REFUSED DRESSING CHANGE WOULD NOT WAKE UP TO TAKE MEDICATION, AND WHEN I TRY TO TALK TO PT HE WOULD COVER HIS FACE. Initialized on 06/05/16 22:36 - END OF NOTE 06/05/16 16:58 OT Evaluation by Gloria Mcnulty (Please sign and return this section for non-electronic signatures) I have reviewed, and agree with, the below stated plan of care: Referring Provider Signature/Printed Name Date OT Treatment Diagnosis Weakness Assessment Pt demo'ed the above areas of OT concern during acute OT eval. Pt can benefit from skilled OT services to increase functional (I) during aucte stay. Based on current performance, highly recommend Pt d/c to SNF or LTAC facility. Rehab Potential Fair Planned OT Interventions Therapeutic Exercise,Therapeutic Activity,Self Care/Home Management,OT Evaluation,Re- Evaluation OT Treatment Frequency 3x/wk Estimated OT Needs at SNF/ECF Discharge Patient will participate Moderate Assistance Patient will improve AM-PAC 6 CLICKS Patient will improve Bilateral UE strength by 1/2 grade Patient will complete 5-10 min with rest breaks Patient will complete bed Moderate Assistance Patient will sit EOB to 3-5 minutes improve Patient will verbally/ Walker Safety/Assistive D demonstrate recall of precautio Patient will receive education Adaptive Equipment Occupational Therapy OT Acute Eval Start: 06/05/16 16: 22 Freq: Status: Active Document 06/05/16 16:22 VISH (Rec: 06/05/16 16:57 TNB [id number]) Inpatient Rehab Intake History Date of Admission 06/05/16 Chief Complaint dyspnea PMH/Surgical History Relevant to Rehab PMH: CHF, MRDD,venous stasis, B LE osteomylelitis, JOHN, obesity, severe deconditioning , behavioral disturbances Medical Diagnosis Diagnosis Osteomyelitis, unspecified Reason for Referral/Orders Evaluate, develop and implement POC Safety/Limitations Restrictions/Precautions Cognition Impaired Bed/Chair Alarm Home/PLOF History Provided By Patient Family Member Lives With: sister Type of Dwelling Single Family Home Current DME Hospital Bed Prior Level Of Function Independent up until previous hospital admission per pt's sister report . Prior Mobility Level Independent up until previous hospital admission per pt's sister report. Driving no pt's sister drives Patient/Family Goal Pt does not state goals, but pt's sister is open to rehab stay. Vitals Pulse Rate (beats/min) 99 Respiratory Rate (breaths/min) 18 O2 Sat by Pulse Oximetry (95-100 %) 94 Blood Pressure (mm Hg) 149/98 Pain Assessment Pain Present Pain Present Reports Pain Pain Right Lower Extremity Scale Used did not rate 2/2 to decreased cognition Functional Mobility Assessment Bed Mobility Bed Mobility Ability Maximum Assistance 2 Person Assist Balance Static Sitting Balance Ability Poor Dynamic Sitting Balance Ability Poor Additional Info Additional Information Pt only agreeable to bed mobility this date with multiple encouragement from sister. Pt adamantly declined sitting EOB or to stand this date with sister present. Based on Pt's current mobility in bed and sitting balance up in bed (lean to L noted throughout - unable to self correct) Recommend a radha lift to chair if Pt OOB. ADL Assessment Grooming Grooming Ability Moderate Assistance Upper Body Dressing Upper Body Dressing Ability Total Assistance Lower Body Dressing Lower Body Dressing Ability Total Assistance Bathing Washing/Drying Upper Body Ability Total Assistance Washing/Drying Lower Extremities Ability Total Assistance Eating Eating (Feeding) Ability Setup Toileting Performing Toilet Hygiene Ability Total Assistance Managing Clothing Ability Total Assistance Functional Activity Tolerance Activity Tolerance Poor Comment ADL's Sister reports that Pt is continent at home but Pt has not been continent during acute stay. Notifies RN after bowel movement or urination has occurred that he needs cleaned up. Gross Strength/ROM Upper Extremity Gross UE Strength Impaired Gross UE ROM Impaired UE ROM/Strength Detail R UE 3-/5 L UE 3+/5 b/l molding machine setter=good Edema/Skin Integrity Skin Integrity Comment intact; LE wounds Gross Sensorimotor Sensory Gross Sensation No Deficit Noted Coordination Gross Coordination RUE Impaired LUE Impaired Fine Motor Coordination RUE Impaired LUE Impaired Cognition/Visual Assessment Alertness/Orientation Level of Alertness Alert Active Patient Orientation Person Name Awareness/Safety Mental Status Alert & Oriented Safety Awareness Patient Is Unaware of Safety Issues Visual Visual Acuity No Deficits Noted Auditory Hearing Ability Normal Comprehension Ability to Follow Directions Follows One Step Comprehension Ability Severe Impairment Expression/Communication Patient Behavior Appropriate Cooperative Speech Pattern Unclear Eye Contact Maintains Eye Contact Problem Solving Problem Solving Ability Unable To Solve Simple Problems Unable To Solve Complex Problems Rehab Education Education Provided Education Topic Gait Teaching Recipient Patient Teaching Method Verbal Response to Teaching Reinforcement needed Acute OT POC Stroke Is patient being assessed for No rehabilitation for diagnosis of stroke? Summary [facility] OT Inpatient Daily Activity Raw 8 Score -[facility] 0-100% Impaired Score 85 Problems/Impairments/Functional Decreased Functional Endurance Limitation Decreased ADL's/IADL's Decreased Safety/Judgement/ Cognition Decreased Functional Mobility/ Transfers Decreased Standing Tolerance Needs AE/Compensatory Education Feeding Skills Balance Impaired Gait Decreased ROM Decreased Functional Reach Decreased Strength Impaired Coordination Assessment Pt demo'ed the above areas of OT concern during acute OT eval. Pt can benefit from skilled OT services to increase functional (I) during aucte stay. Based on current performance, highly recommend Pt d/c to SNF or LTAC facility . Rehab Potential Fair Disposition at end of Eval/Treatment In bed Lines intact RN/[employer] HARDWARE INSTALLER informed Call light/phone within reach Tray table within reach All needs met Plan of Care OT Treatment Diagnosis Weakness Planned OT Interventions Therapeutic Exercise Therapeutic Activity Self Care/Home Management OT Evaluation Re-Evaluation OT Treatment Frequency 3x/wk Estimated OT Needs at Discharge SNF/ECF OT Estimated DME Needs at D/C Front Wheeled Walker Bedside Commode (3 in 1) Shower Chair Grab Bars in Shower ADL/Outcome Goals Patient will participate in ADLs of Moderate Assistance various media (dressing,bathing) with___ __ to improve ADL I/participation by hospital discharge. Patient will improve functional outcome [facility] 6 CLICKS score on by noted improvement of score (increase or decrease as measured on tool by 2 points) within short term hospitalization stay. Strength/ROM/Endurance Goals Patient will improve strength by 1 Bilateral UE /2 grade to improve ADL participation & independence by short term hospial stay. Patient will complete of paced 5-10 min with rest breaks therapeutic exercise to improve functional stamina as needed for daily routine & ADLs by hosptial discharge. Functional Mobility/Standing Goals Patient will complete bed mobility to Moderate Assistance improve functional mobility as needed for ADL participation with by hospital discharge. Patient will sit EOB to improve static/ 3-5 minutes dynamic sitting balance for while engaging in functional tasks/activity in preparation for functional mobility required for ADLs by hospital discharge. Compensation/Educational Goals Patient will verbally/demonstrate recall Walker Safety/Assistive Device of precautions in order to increase safety with ADLs & promote proper healing by discharge. Patient will receive education using____ Adaptive Equipment __ for compensatory strategies as needed for ADL I/participation by discharge from acute hospital stay. Supervising Therapist Supervising Therapist Gloria Mcnulty Eval and Re-Eval Charges G-Code Evaluation Time Evaluation Time: Minutes with Patient 40 Complexity Eval/Re-eval Occupational Therapy Evaluation High Yes Complexity Documentation Complete OT Charges/Documentation Finished? Yes Last Visit Is patient being discharged from OT No today? Business Needs Financial Class MCR Secondary Payer Y OT G-code Therapy Billing Start: 06/05/16 16: 22 Freq: Status: Active Document 06/05/16 16:58 VISH (Rec: 06/05/16 16:58 TN [id number]) OT G-codes G-Code Required G-code Required For This Visit No Current G-code Status OT Current Status Self Care OT Current Status Modifier At least 80% but less than 100 % impaired, limited or restricted Goal G-code Status OT Goal Status Self Care OT Goal Status Modifier At least 60% but less than 80% impaired, limited or restricted Preliminary Draft Until Electronically Signed by Supervising Therapist Initialized on 06/05/16 16:58 - END OF NOTE 06/05/16 15:37 PT Evaluation by Lyndon Melgar (Please sign and return this section for non-electronic signatures) I have reviewed, and agree with, the below stated plan of care: Referring Provider Signature/Printed Name Date Assessment Pt is appropriate for skilled rehab services. PT services are warranted in order to address impairments and functional limitations as stated below. Pt requires max encouragement from rehab team and his sister for participation. Even with encouragement, but decline attempt to complete all functional mobility tasks beyond rolling to R side. Pt will require continued skilled PT services at SNF at time of d/c in order to further facilitate return to PLOF. PT Treatment Diagnosis Weakness Rehab Potential Fair Planned Interventions Therapeutic Exercise,Therapeutic Activity,Gait Training,Neuromuscular Reeducation PT Treatment Frequency 3x/wk Estimated PT Needs at SNF/ECF Discharge Pt. will perform all bed Maximum Assistance mobility Pt. will perform all transfers Maximum Assistance Pt. will demonstrate Fair static/dynamic balance Pt. will participate in of 5 minutes continuous activity Pt. will verbally recall Walker Safety/Assistive D precautions without cues Pt. will perform therapeutic Verbal/Tactile Cues exercise Physical Therapy PT Acute Eval Start: 06/05/16 12: 57 Freq: Status: Active Document 06/05/16 15:21 [facility] (Rec: 06/05/16 15:37 [facility] [id number]) Inpatient Rehab Intake History Date of Admission 06/05/16 Chief Complaint dyspnea PMH/Surgical History Relevant to Rehab PMH: CHF, MRDD,venous stasis, B LE osteomylelitis, JOHN, obesity, severe deconditioning , behavioral disturbances Medical Diagnosis Diagnosis Osteomyelitis, unspecified Reason for Referral/Orders Evaluate, develop and implement POC Safety/Limitations Restrictions/Precautions Cognition Impaired Bed/Chair Alarm Home/PLOF History Provided By Patient Family Member Lives With: sister Type of Dwelling Single Family Home Prior Level Of Function Independent per pt's sister report. Prior Mobility Level Independent per pt's sister report. Driving no pt's sister drives Patient/Family Goal Pt does not state goals, but pt's sister is open to rehab stay. Pain Assessment Pain Present Pain Present Reports Pain Pain Right Lower Extremity Scale Used does not rate pain at this time Functional Mobility Assessment Bed Mobility Bed Mobility Ability Maximum Assistance 2 Person Assist Endurance Activity Tolerance Poor Additional Info Additional Information Pt only agreeable to roll to R side. Pt declines all other functional mobility tasks due to pain in R LE. Gross Strength/ROM Lower Extremity Gross LE Strength Other (See Detail) LE ROM/Strength Detail B LE ROM limited all major joints due to weakness and edema. <1/2 ROM present at each major joint B LE. Pt able to initiate movement at all major joints B LE, but completes < 1/2 ROM. Edema/Skin Integrity Skin Integrity Comment B LE dressing intact Gross Sensorimotor Sensory Gross Sensation No Deficit Noted Cognition/Visual Assessment Alertness/Orientation Level of Alertness Alert Patient Orientation Person Name Awareness/Safety Mental Status Alert & Oriented Safety Awareness Patient Is Unaware of Safety Issues Visual Visual Acuity No Deficits Noted Auditory Hearing Ability Normal Comprehension Ability to Follow Directions Follows One Step Expression/Communication Patient Behavior Resistive to Care Speech Pattern Unclear Rehab Education Education Provided Education Topic Gait Teaching Recipient Patient Teaching Method Verbal Response to Teaching Reinforcement needed Education Provided: Details pt also educated on importance of mobility for obtaining PLOF. Acute Care PT POC Stroke Is patient being assessed for No rehabilitation for diagnosis of stroke? Summary AM-PAC PT Basic Mobility Raw Score 7 AM-PAC CMS 0-100% Impaired Score 93 Problems/Impairments/Functional Decreased Functional Endurance Limitation Decreased Safety/Judgement/ Cognition Decreased Functional Mobility/ Transfers Decreased Standing Tolerance Balance Impaired Gait Decreased ROM Decreased Strength Assessment Pt is appropriate for skilled rehab services. PT services are warranted in order to address impairments and functional limitations as stated below. Pt requires max encouragement from rehab team and his sister for participation. Even with encouragement, but decline attempt to complete all functional mobility tasks beyond rolling to R side. Pt will require continued skilled PT services at SNF at time of d/c in order to further facilitate return to PLOF. Rehab Potential Fair Disposition at end of Eval/Treatment In bed Lines intact Family in room Call light/phone within reach Tray table within reach All needs met Plan of Care PT Treatment Diagnosis Weakness Planned Interventions Therapeutic Exercise Therapeutic Activity Gait Training Neuromuscular Reeducation PT Treatment Frequency 3x/wk Goals Determined With Patient/Family Yes Estimated PT Needs at Discharge SNF/ECF Functional Mobility Goals Pt. will perform all bed mobility with__ Maximum Assistance ___to increase functional indendence. Pt. will perform all transfers with Maximum Assistance to increase safe functional mobility and independence. Pt. will demonstrate static/dynamic Fair balance during all functional activities allowing increased safety awareness. ROM/Strength/Endurance Goals Pt. will participate in of 5 minutes continuous activity allowing increased endurance while completing ADLs improving quality of life. Education Goals Pt. will verbally recall precautions Walker Safety/Assistive Device without cues for increased safety & compliance in discharge environment. Pt. will perform therapeutic exercise Verbal/Tactile Cues with to improve functional ROM, strength, and endurance during all functional activities. Supervising Therapist Supervising Therapist Lyndon Melgar Eval and Re-Eval Charges G-Code Evaluation Time Evaluation Time: Minutes with Patient 25 Complexity Eval/Re-eval Physical Therapy Evaluation High Yes Complexity Documentation Complete PT Charges/Documentation Finished? Yes Last Visit Is patient being discharged from PT No today? Business Needs Financial Class MCR Secondary Payer Y PT G-code Therapy Billing Start: 06/05/16 12: 57 Freq: Status: Active Document 06/05/16 15:21 PETRA (Rec: 06/05/16 15:37 [facility] [id number]) PT G-codes G-Code Required G-code Required For This Visit No Current G-code Status PT Current Status Mobility PT Current Status Modifier At least 80% but less than 100 % impaired, limited or restricted Goal G-code Status PT Goal Status Mobility PT Goal Status Modifer At least 80% but less than 100 % impaired, limited or restricted Preliminary Draft Until Electronically Signed by Supervising Therapist Initialized on 06/05/16 15:37 - END OF NOTE 06/05/16 13:02 PT Missed Visit by Lyndon Melgar PT Missed Visit PT Missed Visit Start: 06/05/16 12: 57 Freq: Status: Active Document 06/05/16 12:58 AGK (Rec: 06/05/16 13:02 [facility] [id number]) Missed Visit Reason Missed Visit Reason Refused/Declined Comment PT evaluation attempted x2 this morning (10:45 and 11: 45am). Pt declined first attempted 2/2 needing to "get cleaned up". Pt out for testing at second attempt. Rehab team memebers spoke with pt's sister at second attempt . Pt's sister reports she will likely not be able to care for pt at home if he continues to require assistance of >1 person. She is open to pt d/c to rehab facility if he qualifies. Pt's sister is also agreeable to assist with encouraging patient to participate in rehab services. Preliminary Draft Until Electronically Signed by Supervising Therapist Initialized on 06/05/16 13:02 - END OF NOTE 06/05/16 12:41 Social Work Note by Lynne Vivar Addendum entered by Lynne Vivar 06/05/16 13:46: UPDATE: Patient's attending provider, Dr. Jon, stated she is unclear if patient will d/c to [facility] as she and Dr. Rocha are discussing possible transfer to [facility]. Dr. Jon to inform CORPORATE TREASURY ANALYST of decision this date. If transfer will occur to [facility] CORPORATE TREASURY ANALYST will d/c referral to [facility]; however, that will not be determined until later this date. Additionally, regarding the BiPAP need, patient did qualify for BiPAP with overnight pulse oximetry study; however, new BiPAP settings unknown to this SWr at this time. If patient does d/c to [facility], CORPORATE TREASURY ANALYST will obtain and provide to AC at [facility]. SS to follow. Original Note: CORPORATE TREASURY ANALYST requested Breezy SANCHEZ, to make referral to [facility] [place] , per previous conversation with patient's sister who cares for patient on . CORPORATE TREASURY ANALYST [facility]'s care: BMI, bed usage needed, BiPAP usage needs and order if required at d/c and behaviors. CORPORATE TREASURY ANALYST to f/u with nursing staff on BiPAP; however, CORPORATE TREASURY ANALYST answered all other questions. CORPORATE TREASURY ANALYST to complete HENS via online system and contact [facility] if problems arise and additional review needed by ODDD or OD prior to placement. SS to follow. Initialized on 06/05/16 12:41 - END OF NOTE 06/05/16 12:36 BODY TECHNICIAN/PAINTER MBS Eval by Kamila Albert (Please sign and return this section for non-electronic signatures) I have reviewed, and agree with, the below stated plan of care: Referring Provider Signature/Printed Name Date Diagnostic Impressions Patient presents with a functional swallow evidenced by adequate oral motor skills, tongue based retraction, laryngeal elevation, and pharyngeal constriction. Given trials of pureed textures, regular textures, and thin liquids, patient tolerated all without residue or penetration/aspiration. Patient did present with mild vallecular/pyriform pooling. It is recommended that patient continue with current diet of regular textures and thin liquids. Swallow therapy is not warranted at this time. Modified Barium Swallow Regular Dietary Recommendations Dysphagia Evaluation Liquid Thin Liquids Recommendations Mod Barium Swallow Recommended No Treatment Recommended Treatments Swallow Diagnosis WFL Additional BODY TECHNICIAN/PAINTER Treatment WFL Diagnosis/Clarification [place] [place] BODY TECHNICIAN/PAINTER G-code Therapy Billing Start: 06/05/16 12: 30 Freq: Status: Active Document 06/05/16 12:31 DMV (Rec: 06/05/16 12:36 DMV [id number]) ST G-codes G-Code Required G-code Required For This Visit No Current G-code Status ST Current Status Swallow ST Current Status Modifier At least 1% but less than 20% impaired, limited or restricted Goal G-code Status ST Goal Status Swallow ST Goal Status Modifier At least 1% but less than 20% impaired, limited or restricted Discharge G-code Status ST Discharge Status Swallow ST Discharge Status Modifier At least 1% but less than 20% impaired, limited or restricted BODY TECHNICIAN/PAINTER MBS Evaluation Start: 06/05/16 12: 30 Freq: Status: Active Document 06/05/16 12:31 DMV (Rec: 06/05/16 12:36 DM [id number]) Mod Barium Swallow General Consult Reason BODY TECHNICIAN/PAINTER Suspect silent aspiration Collaborating Radiologist Dr. Og Previously Treated No Patient Alert Yes Present Method of Hydration Oral Patient Reported Comorbidities Relevant PMH: CHF, dementia, GERD, GI to Rehab Bleed, ID, venous stasis Dysphagia: General Information General Hx Dysphagia No Current Food Consistency Regular Thin Liquids Ability to Follow Directions Fair Oral Expression Ability Moderate Impairment Voice Voice Quality Normal Voice Pitch Normal Voice Loudness Normal Mod Barium Swallow-Lat View Oral Phase Pureed Labial Closure No Impairment (WFL) Bolus Formation No Impairment (WFL) Mastication Rotary Chew No Impairment (WFL) A/P Lingual Propulsion Spills No Impairment (WFL) A/P Lingual Propulsion Delay No Impairment (WFL) Lingual Movement No Impairment (WFL) Residue Clearing No Impairment (WFL) Other Oral Phase Observations same results for regular textures and thin liquids. WFL Pharyngeal Phase Swallow Response Delay Mild Impairment Base of Tongue No Impairment (WFL) Epiglottic Coverage No Impairment (WFL) Laryngeal Elevation No Impairment (WFL) Vallecular Pooling Mild Impairment Pharyngeal Residue No Impairment (WFL) Pharyngeal Peristalsis No Impairment (WFL) Pyriform Pooling Mild Impairment Penetration No Aspiration No Silent Aspiration No Aspiration with Cough No Other Pharyngeal Phase Observation Same results for regular textures and thin liquids. Mod Barium Swallow Impressions Summary and Impressions Oral Phase Impression No Impairment (WFL) Pharyngeal Phase Impression No Impairment (WFL) Modified Barium Swallow Recommendations Stroke Is patient being assessed for No rehabilitation for diagnosis of stroke? Diet Diet Recommendations Regular Liquid Recommendations Thin Liquids Treatment/Strategies Additional BODY TECHNICIAN/PAINTER Treatment Diagnosis/ WFL Clarification Treatment Recommendations No Treatment Recommended Summary Diagnostic Impressions Patient presents with a functional swallow evidenced by adequate oral motor skills, tongue based retraction, laryngeal elevation, and pharyngeal constriction. Given trials of pureed textures, regular textures, and thin liquids, patient tolerated all without residue or penetration/aspiration. Patient did present with mild vallecular/pyriform pooling. It is recommended that patient continue with current diet of regular textures and thin liquids. Swallow therapy is not warranted at this time. Swallow Diagnosis WFL Rehab Education Education Provided Education Provided: Details Nothing provided this date. Charge Sheet G-Code Evaluations Modified Barium Swallow Yes Documentation Complete ST Charges/Documentation Finished? Yes Last Visit Is patient being discharged from BODY TECHNICIAN/PAINTER Yes today? Initialized on 06/05/16 12:36 - END OF NOTE 06/05/16 11:11 Dull Coat Mill Operator Note by Eva Richards Per request from [facility] to send referral packet to [facility]. Printed and faxed. Initialized on 06/05/16 11:11 - END OF NOTE 06/05/16 08:19 Transport Report by Lizzie Carreon Date: 06/05/16 Transport Method: Stretcher cephalexin [From Keflex] Allergy (Verified 03/14/16 16:16) See Comments chlorpromazine [From Thorazine] Allergy (Verified 03/14/16 16:16) See Comments [place] Allergy (Verified 05/29/16 17:34) See Comments Beans Allergy (Uncoded 05/29/16 17:34) See Comments Resuscitation Status Full Code 06/03/16 06:00 ECG 12 lead ECG [ECG] AM 0600 Mode Of Transportation: Portable Reason For Exam: Hypoxic respiratory failure Order Doctor: Julian Angeles Exam Performed At:: [facility] 06/05/16 08:12 XR modified bs w speech therap [XR] Routine Mode Of Transportation: Stretcher Reason For Exam: suspect silent aspiration Order Doctor: Angélica Rosales Exam Performed At:: [facility] Additional Notes/Special Instructions: t/s/f aware Oxygen: Nasal Cannula Humidified 3 Mental Status: Alert Fall Risk: Low Risk Isolation: Nurse Required for Transport: No ___ Yes Limb Restrictions: No ___ Yes Behavioral issue/Risk for Elopement: No ___ Yes Telemetry Room Notification: Destination: MRI XRAY STRESS ULTRASOUND CT DIALYSIS ENDO OTHER: Depart Time: Nurse: Transporter: Arrive Time: Received by: ___ Return Time: Nurse: Transporter: ] Initialized on 06/05/16 08:19 - END OF NOTE 06/05/16 06:44 Nurse Note by Lila Cruz Pt refused dressing change for this shift. Initialized on 06/05/16 06:44 - END OF NOTE 06/04/16 23:30 Nurse Note by Lila Cruz Pt refusing medications at this time. States he will take later after he "naps". Initialized on 06/04/16 23:30 - END OF NOTE 06/04/16 18:27 Nurse Note by Fannie Sandoval resp made aware of pts needing overnight bipap study. Initialized on 06/04/16 18:27 - END OF NOTE 06/04/16 17:57 Nurse Note by Fannie Sandoval discussed with patient that we would need to straight cath him for a urine, pt refuses at this time. Initialized on 06/04/16 17:57 - END OF NOTE 06/04/16 17:36 Nurse Note by Fannie Sandoval. Dr. ghotra made aware of pts BP. Initialized on 06/04/16 17:36 - END OF NOTE 06/04/16 17:17 Social Work Note by Lynne Vivar Late Entry for 06/02/16 -- CORPORATE TREASURY ANALYST was leaving hospital and found patient's sister outside of the ED. Sister reported when RN from [facility] come to the home, patient was having difficulty breathing and informed sister to have patient go to ED. Sister reported she did not know if patient would be admitted or not. CORPORATE TREASURY ANALYST spoke with patient's ER physician who reported that patient would be admitted. CORPORATE TREASURY ANALYST explained that earlier this date, CORPORATE TREASURY ANALYST was informed that patient may have needed O2 prior to d/c by Dr. Jon and CORPORATE TREASURY ANALYST found this was not done. CORPORATE TREASURY ANALYST also informed physician that sister voiced her concerns to CORPORATE TREASURY ANALYST and SW Electrical Power Engineer shortly after arriving home with patient from earlier d/c from stating she could not care for patient; CORPORATE TREASURY ANALYST attempted to place patient from community earlier this date to [facility], but per Jeanette KWON, this could not be accomplished until patient was seen in f/u by PCP. Physician voiced understanding. CORPORATE TREASURY ANALYST will f/u with patient in a.m. of 06/05/16 to initiate a placement to [facility] [place] per sister's previous request. Patient will require PAS/RR which will likely trigger an EMG screen by the Departments of Developmental Disabilities and [place] Department of Mental Health. SS to follow. Initialized on 06/04/16 17:17 - END OF NOTE 06/04/16 12:00 (created 06/04/16 17:03) Nurse Note by Fannie Sandoval. Pt instructed that we need a urine sample. reinforcement needed. Initialized on 06/04/16 17:03 - END OF NOTE 06/03/16 12:43 Nurse Note by Lyndon Chu This WOODEN SHADE HARDWARE INSTALLER attempted to check patient attends. Patient refused to allow this WOODEN SHADE HARDWARE INSTALLER to check or change patient attends. Initialized on 06/03/16 12:43 - END OF NOTE 06/03/16 12:29 Pharmacy Note by Lyly Parks All medications obtained from discharge med list on 06/02/16- Patient was re- admitted in less than 24 hrs- Initialized on 06/03/16 12:29 - END OF NOTE 06/03/16 07:58 Nurse Note by Edy Arora Medications given per Aliya BERNARD Initialized on 06/03/16 07:58 - END OF NOTE 06/02/16 23:11 Transport Report by Harsha Corona Date: 06/02/16 Transport Method: Portable cephalexin [From Keflex] Allergy (Verified 03/14/16 16:16) See Comments chlorpromazine [From Thorazine] Allergy (Verified 03/14/16 16:16) See Comments [place] Allergy (Verified 05/29/16 17:34) See Comments Beans Allergy (Uncoded 05/29/16 17:34) See Comments Resuscitation Status 06/02/16 21:44 ECG 12 lead ECG [ECG] Stat Mode Of Transportation: Portable Reason For Exam: dyspnea Exam Performed At:: [facility] Oxygen: 4 Mental Status: Fall Risk: Isolation: Nurse Required for Transport: No ___ Yes Limb Restrictions: No ___ Yes Behavioral issue/Risk for Elopement: No ___ Yes Telemetry Room Notification: Destination: MRI XRAY STRESS ULTRASOUND CT DIALYSIS ENDO OTHER: Depart Time: Nurse: Transporter: Arrive Time: Received by: ___ Return Time: Nurse: Transporter: ] Initialized on 06/02/16 23:11 - END OF NOTE Orders 06/02/16 21:41 Ipratropium/Albuterol Neb [Duoneb] 3 ml .ROUTE .STK-MED ONE 06/02/16 21:44 12 lead ECG assessment [RC] NOW Cardiac monitoring [RC] .ONCE Saline lock [RC] .ONCE Supplemental oxygen titration [RC] .ONCE Physician Instructions: Vital Signs Assessment [RC] PROTOCOL XR chest 1V portable [XR] Stat Mode Of Transportation: Portable Reason For Exam: dyspnea Exam Performed At:: [facility] Ipratropium/Albuterol Neb [Duoneb] 9 ml IH ONCE ONE MethylPREDNISolone [Solu-MEDROL] 125 mg IVP ONCE ONE ECG 12 lead ECG [ECG] Stat Mode Of Transportation: Portable Reason For Exam: dyspnea Exam Performed At:: [facility] 06/02/16 22:01 B-Type Natriuretic Peptide Stat Comment: Specimen: Send someone from the department to collect Basic Metabolic Panel Stat Comment: Specimen: Send someone from the department to collect Complete Blood Count [HEME] Stat Comment: Specimen: Send someone from the department to collect Culture,Blood [BC] Stat Comment: JUSTIN Source: Peripheral Venipuncture Quantity: 1 Specimen: Send someone from the department to collect Specimen Description: Lactic Acid ([facility] Only) Stat Comment: Specimen: Send someone from the department to collect Troponin I Stat Comment: Specimen: Send someone from the department to collect 06/02/16 22:[address] Stat Comment: Reason for Visit: Hypoxia, PNA 06/02/16 23:33 Acetaminophen [Tylenol] 1,000 mg PO ONCE ONE 06/03/16 00:26 Acetaminophen [Tylenol] 650 mg PO Q6HR PRN Docusate [Colace] 100 mg PO BID PRN 06/03/16 00:29 Aspiration precautions [RC] .WITH MEALS Falls precautions ([place] [RC] ONCE Vital Signs Assessment [RC] Q4H Albuterol Neb [Proventil Neb] 2.5 mg IH Q2H PRN Morphine [Morphine Sulfate] 2 mg IVP Q4HR PRN Naloxone [Narcan] 0.4 mg IVP Q2MIN PRN OxyCODONE Immed Rel [Roxicodone] 5 mg PO Q6HR PRN Promethazine [Phenergan] 12.5 mg IVP Q6HR PRN Resuscitation Status: Active [RES] Routine Comment: Resuscitation Status: Full Code 06/03/16 00:30 Cardiac monitoring [RC] .ONCE Head of bed elevation [RC] .ONCE Peripheral IV [RC] CONT Consult to Nurse Navigator [CONS] Routine Comment: 0.9 % Sodium Chloride 1,000 ml IVC 50 mls/hr Up with Assist Daily Comment: Physician Instructions: 06/03/16 00:31 Bed rest [RC] .CONT Physician Instructions: Bed rest w/bedside commode [RC] .PRN Cardiac Monitoring Med/Surg [RC] .CONT Telemetry Reason: Acute Heart Failure Continuous pulse oximetry [RC] CONT Comment: Measure intake and output [RC] QSHIFT Measure weight [RC] DAILY RT has an order or consult [RC] NOW 06/03/16 00:32 Oxygen via nasal cannula Nasal Cannula 2 lpm Comment: Titrate O2 to main O2 sat greater than: 92% 06/03/16 00:34 Consult to Ocular Care Aide [CONS] Routine Reason for SW Consult: Discharge planning. Patient will require assistance to secure home oxygen authorization and placement prior to discharge next week. 06/03/16 00:37 Incentive Spirometry [RC] .6 TIMES PER HR WHILE AWAKE intermittent [Intermittent pneumatic destiney] [RC] .CONTINUOUS Intermit Pneumatic Compression Device: Foot Pumps 06/03/16 03:45 C-Reactive Protein AM 0400 Comment: Specimen: Send someone from the department to collect Magnesium AM 0400 Comment: Specimen: Send someone from the department to collect Phosphorous Routine Troponin I Q6H Comment: Specimen: Send someone from the department to collect Venous Blood Gas AM 0400 Comment: Specimen: Send someone from the department to collect sed rate [Erythrocyte Sedimentation Rate] [HEME] AM 0400 Comment: Specimen: Send someone from the department to collect 06/03/16 05:00 Ipratropium/Albuterol Neb [Duoneb] 3 ml IH QIDR 06/03/16 06:00 Enoxaparin [Lovenox] 40 mg SQ 0600 Vancomycin HCl in Dextrose 5 % [Vancomycin 1 Gram/250 ml-D5w] 1 gm IV Q12HR How will this medication be supplied?: Pharmacy to Subsitute Vancomycin [Vancocin] 1,000 mg D5% in Water [Dextrose 5%] 250 ml IVPB Q12H 06/03/16 06:10 BIPAP [RC] PRN 06/03/16 06:11 BIPAP/CPAP On/Off Times [RC] ONCE RT has an order or consult [RC] NOW 06/03/16 06:12 Transfusion, red blood cells [RC] .ONCE Acetaminophen [Tylenol] 650 mg PO ONCE ONE Bumetanide [Bumex] 1 mg IVP ONCE STA DiphenhydraMINE [Benadryl] 25 mg IVP ONCE ONE 06/03/16 06:13 Signed consent on chart [RC] .ONCE 06/03/16 06:15 Overnight BiPap/O2 Qualification ONCE 06/03/16 06:16 MethylPREDNISolone [Solu-MEDROL] 40 mg IVP ONCE STA 06/03/16 06:18 0.9 % Sodium Chloride 1,000 ml IVC 25 mls/hr 06/03/16 07:23 Red Blood Cells [BBK] Stat [employer] Wrist[employer] Number: [id number] Comment: Quantity: 2 Specimen: Send someone from the department to collect Indicate Reason for RBC Trans: Hemorrhage w organ ischem Indicate condition for HGB <8: Signs/Symtoms of Anemia Has pt been within the last 3 months?: No Has pt been transfused within the last 3 months?: No Type and Screen [BBK] Stat [employer] Wrist[employer] Number: [id number] Comment: Specimen: Send someone from the department to collect 06/03/16 08:00 Furosemide [Lasix] 20 mg PO BIDDIURETIC 06/03/16 09:00 Consult to Speech Therapy [CONS] Routine Comment: Evaluate, develop and implement POC Reason for Consult: She presents with history of recurring pneumonia and reactive airway disease. Concern for silent aspiration/GERD and intermittent dysphagia. Please evaluate and advise. Time Notified: 06:45 Call Completed: No Ascorbic Acid [Vitamin C] 500 mg PO DAILY Cefepime HCl [Maxipime] 2,000 mg D5% in Water [Dextrose 5%] 100 ml IVPB BID Cefepime HCl/D5w [Cefepime-Dextrose 2 gm/50 ml] 2 gm IV BID How will this medication be supplied?: Pharmacy to Subsitute Collagenase Oint [Santyl] 1 appl TP BID Famotidine [Pepcid] 20 mg PO BID Ferrous Sulfate 325 mg PO BID How will this medication be supplied?: Pharmacy to Subsitute Folic Acid 1 mg PO DAILY How will this medication be supplied?: Pharmacy to Subsitute Furosemide [Lasix] 20 mg IVP BID Gentamicin Oint [Garamycin] 1 appl TP BID Lactobacillus [Culturelle] 1 each PO BID Multivit/Ca/Min/Fe/FA [Thera M Plus] 1 tab PO DAILY How will this medication be supplied?: Pharmacy to Subsitute Pentoxifylline [TRENtal] 400 mg PO BID Petrolatum, white [Vaseline] 1 appl TP BID Potassium Chloride 20 meq PO DAILY PredniSONE 40 mg PO DAILY Zinc Sulfate 220 mg PO DAILY 06/03/16 12:00 MethylPREDNISolone [Solu-MEDROL] 40 mg IVP Q6HR 06/03/16 15:30 Troponin I Q6H Comment: Specimen: Send someone from the department to collect 06/03/16 15:44 Consult to Occupational Therapy [CONS] Routine Comment: Evaluate, develop and implement POC Consult to Physical Therapy [CONS] Routine Comment: Evaluate, develop and implement POC 06/03/16 15:46 CPAP [RC] .PRN RT has an order or consult [RC] NOW 06/03/16 17:13 0.9 % Sodium Chloride 250 ml .ROUTE As Directed 06/03/16 18:00 Vancomycin [Vancocin] 750 mg D5% in Water (Mini-Bag+) [Dextrose 5% (Minibag+) 100 ML] 100 ml IVPB Q12H 06/03/16 21:35 0.9 % Sodium Chloride 250 ml .ROUTE As Directed 06/03/16 Breakfast Cardiac Diet Diet Modifications: 06/04/16 00:00 Vancomycin [Vancocin] 1,000 mg D5% in Water [Dextrose 5%] 250 ml IVPB Q12H 06/04/16 00:30 Up with Assist Daily Comment: Physician Instructions: 06/04/16 01:45 Furosemide [Lasix] 20 mg IVP .STK-MED ONE 06/04/16 03:00 Cefepime HCl [Maxipime] 2,000 mg D5% in Water [Dextrose 5%] 100 ml IVPB BID 06/04/16 04:05 Complete Blood Count [HEME] AM 0400 Comment: Specimen: Send someone from the department to collect 06/04/16 07:58 Up to chair [RC] tid 06/04/16 15:40 Consult to Wound Care [CONS] Routine Reason for Consult: chronic lower extremity wounds Call Completed: No 06/04/16 23:00 Vancomycin,Trough Timed Comment: Specimen: Send someone from the department to collect 06/05/16 00:30 Up with Assist Daily Comment: Physician Instructions: 06/05/16 02:24 Ondansetron [Zofran] 4 mg IVP ONCE ONE 06/05/16 04:10 Basic Metabolic Panel AM 0400 Comment: Specimen: Send someone from the department to collect Complete Blood Count [HEME] AM 0400 Comment: Specimen: Send someone from the department to collect ESR [Erythrocyte Sedimentation Rate] [HEME] AM 0400 Comment: Specimen: Send someone from the department to collect 06/05/16 08:12 XR modified bs w speech therap [XR] Routine Mode Of Transportation: Stretcher Reason For Exam: suspect silent aspiration Order Doctor: Angélica Rosales Exam Performed At:: [facility] Additional Notes/Special Instructions: t/s/f aware 06/05/16 08:24 Admit as Inpatient Routine Estimated Total Length of Stay (Days): 2 Plans for Post Hospital Care: Home Inpatient Status Required: Still symptomatic/not sta Explain each choice below Explain Concerns: sepsis Potential Adverse Outcome: Sepsis Is VTE Prophylaxis Indicated?: Yes 06/05/16 10:04 O2 Qualification 6 Minute Walk [RC] .once 06/05/16 10:15 CXR, PA/Lateral [XR chest 2V] [XR] Routine Mode Of Transportation: Stretcher Reason For Exam: coarse lung sounds Order Doctor: Ira Jon Exam Performed At:: [facility] Additional Notes/Special Instructions: [place] [facility] [place] [facility] 06/05/16 12:00 Vancomycin [Vancocin] 750 mg D5% in Water [Dextrose 5%] 250 ml IVPB Q12H 06/05/16 12:55 Wound Care [RC] Q8-10H Physician Instructions: 06/05/16 13:03 Elevate extremity [RC] PRN Place heel protector Routine Physician Instructions: Heel protectors on while in bed, on at all times 06/05/16 13:15 Place heel protector ONCE Physician Instructions: Heel protectors on while in bed, on at all times 06/05/16 18:56 Discharge Order [DISCHARGE] Routine Comment: Is this a conditional discharge order?: Yes What conditions need to be met for patient to be discharged?: Conditional upon placement to SNF 06/06/16 10:54 Consult to Respiratory Therapy [CONS] Routine Reason for Consult: Patient needs BIPAP settings. Call Completed: Yes 06/06/16 12:54 Discharge Order [DISCHARGE] Routine Comment: 06/06/16 16:19 Aminoglycoside Consult [Kinetic, Aminoglycoside] 1 each .STK-MED ONE Vital Signs Temp Pulse Resp BP Pulse Ox 06/06/16 11:52 98.4 F 86 18 110/73 95 06/06/16 10:46 20 97 06/06/16 07:40 98.3 F 84 18 120/70 98 06/06/16 04:08 18 100 06/06/16 03:35 98.2 F 81 20 125/76 100 06/06/16 01:01 99 06/05/16 23:38 97.5 F L 86 20 117/76 99 06/05/16 22:41 20 94 L 06/05/16 18:38 98.2 F 91 18 122/78 98 06/05/16 16:33 18 90 L 06/05/16 16:22 99 18 149/98 94 L 06/05/16 15:35 97.4 F L 99 18 149/98 94 L 06/05/16 11:20 98.2 F 102 18 123/75 93 L 06/05/16 07:04 97.9 F 84 20 125/85 94 L 06/04/16 23:28 98.3 F 95 18 163/100 93 L 06/04/16 16:56 97.9 F 79 15 158/107 98 06/04/16 12:46 99.1 F 80 16 159/96 99 06/04/16 10:42 16 98 06/04/16 07:45 97.6 F 72 16 153/89 94 L 06/04/16 05:03 16 98 06/04/16 04:06 98.0 F 74 20 129/77 98 06/04/16 01:25 98.4 F 78 18 147/84 98 06/03/16 22:23 97.0 F L 82 16 125/79 95 06/03/16 22:14 97.7 F 86 16 147/86 95 06/03/16 20:49 18 96 06/03/16 20:42 98.3 F 82 16 157/72 99 06/03/16 20:28 98.3 F 82 16 157/72 99 06/03/16 18:02 98.8 F 77 16 132/84 06/03/16 17:47 98.0 F 77 16 109/63 98 06/03/16 15:59 16 100 06/03/16 15:14 97.5 F L 87 16 125/85 99 06/03/16 12:02 97.8 F 74 16 150/86 97 06/03/16 09:18 94 L 06/03/16 07:19 97.5 F L 78 17 137/89 94 L 06/03/16 06:11 98.1 F 65 18 132/86 98 06/03/16 05:11 18 92 L 06/03/16 01:50 98.2 F 81 18 126/67 98 06/03/16 01:45 98 06/03/16 00:08 18 108/65 06/02/16 22:36 92 20 102/62 98 06/02/16 22:02 100 06/02/16 21:49 32 95 06/02/16 21:29 100.2 F H 91 22 100/60 100 Laboratory Results 06/02/16 06/02/16 06/02/16 Range/Units 22:01 22:01 22:01 WBC 4.9 (4.3-11.1) K/mcL RBC 3.18 L (4.19-5.50) M/mcL Hgb 7.6 L (12.9-16.9) g/dL Hct 26.2 L (37.5-50.1) % MCV 82.4 L (83.0-100.0) fL MCH 23.9 L (28.0-33.3) pg MCHC 29.0 L (31.6-35.5) g/dL RDW 19.9 H (11.5-14.5) % Plt Count 320 (140-400) K/mcL MPV 9.3 L (9.4-12.4) fL Immature Gran % (0-4) % Seg Neutrophils % 37.0 % Lymphocytes % 29.0 % Monocytes % 12.0 % Eosinophils % 22.0 % Basophils % % Neutrophils # 1.8 (1.6-8.9) K/mcL Lymphocytes # 1.4 (0.6-4.6) K/mcL Monocytes # 0.6 (0.0-1.3) K/mcL Eosinophils # 1.1 H (0.0-0.6) K/mcL Basophils # (0.0-0.2) K/mcL Platelet Estimate Normal (Normal) Polychromasia 1+ A (Not Present) Hypochromasia Present A (Not Present) Anisocytosis 1+ A (Not Present) Microcytosis Present A (Not Present) ESR (0-10) mm/hr VBG pH (7.32-7.42) pH Units VBG pCO2 (41-51) mmHg VBG pO2 (25-40) mmHg VBG HCO3 (21-27) mEq/L Sodium 141 (136-145) mEq/L Potassium 4.0 (3.5-4.5) mEq/L Chloride 105 (98-109) mEq/L Carbon Dioxide 29 (19-29) mEq/L BUN 20 (8-26) mg/dL Creatinine 0.70 L (0.72-1.25) mg/dL Est GFR ( Amer) > 60 (> 60) Est GFR (Non-Af Amer) > 60 (> 60) BUN/Creatinine Ratio 29 H (6-26) Glucose 104 H (70-99) mg/dL Calculated Osmolality 295 (280-300) Lactic Acid 0.9 (0.5-2.2) mmol/L Calcium 8.2 L (8.6-10.8) mg/dL Phosphorus (2.3-4.7) mg/dL Magnesium (1.6-2.6) mg/dL Troponin I (0-0.03) ng/mL C-Reactive Protein (Less than 5) mg/L B-Natriuretic Peptide (0-100) pg/mL Vancomycin Trough (10-20) mcg/mL Blood Type Antibody Screen Crossmatch 06/02/16 06/02/16 06/03/16 Range/Units 22:01 22:01 03:45 WBC (4.3-11.1) K/mcL RBC (4.19-5.50) M/mcL Hgb (12.9-16.9) g/dL Hct (37.5-50.1) % MCV (83.0-100.0) fL MCH (28.0-33.3) pg MCHC (31.6-35.5) g/dL RDW (11.5-14.5) % Plt Count (140-400) K/mcL MPV (9.4-12.4) fL Immature Gran % (0-4) % Seg Neutrophils % % Lymphocytes % % Monocytes % % Eosinophils % % Basophils % % Neutrophils # (1.6-8.9) K/mcL Lymphocytes # (0.6-4.6) K/mcL Monocytes # (0.0-1.3) K/mcL Eosinophils # (0.0-0.6) K/mcL Basophils # (0.0-0.2) K/mcL Platelet Estimate (Normal) Polychromasia (Not Present) Hypochromasia (Not Present) Anisocytosis (Not Present) Microcytosis (Not Present) ESR (0-10) mm/hr VBG pH (7.32-7.42) pH Units VBG pCO2 (41-51) mmHg VBG pO2 (25-40) mmHg VBG HCO3 (21-27) mEq/L Sodium (136-145) mEq/L Potassium (3.5-4.5) mEq/L Chloride (98-109) mEq/L Carbon Dioxide (19-29) mEq/L BUN (8-26) mg/dL Creatinine (0.72-1.25) mg/dL Est GFR ( Amer) (> 60) Est GFR (Non-Af Amer) (> 60) BUN/Creatinine Ratio (6-26) Glucose (70-99) mg/dL Calculated Osmolality (280-300) Lactic Acid (0.5-2.2) mmol/L Calcium (8.6-10.8) mg/dL Phosphorus (2.3-4.7) mg/dL Magnesium (1.6-2.6) mg/dL Troponin I 0.00 0.00 (0-0.03) ng/mL C-Reactive Protein (Less than 5) mg/L B-Natriuretic Peptide 273 H (0-100) pg/mL Vancomycin Trough (10-20) mcg/mL Blood Type Antibody Screen Crossmatch 06/03/16 06/03/16 06/03/16 Range/Units 03:45 03:45 03:45 WBC (4.3-11.1) K/mcL RBC (4.19-5.50) M/mcL Hgb (12.9-16.9) g/dL Hct (37.5-50.1) % MCV (83.0-100.0) fL MCH (28.0-33.3) pg MCHC (31.6-35.5) g/dL RDW (11.5-14.5) % Plt Count (140-400) K/mcL MPV (9.4-12.4) fL Immature Gran % (0-4) % Seg Neutrophils % % Lymphocytes % % Monocytes % % Eosinophils % % Basophils % % Neutrophils # (1.6-8.9) K/mcL Lymphocytes # (0.6-4.6) K/mcL Monocytes # (0.0-1.3) K/mcL Eosinophils # (0.0-0.6) K/mcL Basophils # (0.0-0.2) K/mcL Platelet Estimate (Normal) Polychromasia (Not Present) Hypochromasia (Not Present) Anisocytosis (Not Present) Microcytosis (Not Present) ESR 92 H (0-10) mm/hr VBG pH 7.38 (7.32-7.42) pH Units VBG pCO2 57 H (41-51) mmHg VBG pO2 70 H (25-40) mmHg VBG HCO3 33.7 H (21-27) mEq/L Sodium (136-145) mEq/L Potassium (3.5-4.5) mEq/L Chloride (98-109) mEq/L Carbon Dioxide (19-29) mEq/L BUN (8-26) mg/dL Creatinine (0.72-1.25) mg/dL Est GFR ( Amer) (> 60) Est GFR (Non-Af Amer) (> 60) BUN/Creatinine Ratio (6-26) Glucose (70-99) mg/dL Calculated Osmolality (280-300) Lactic Acid (0.5-2.2) mmol/L Calcium (8.6-10.8) mg/dL Phosphorus 3.7 (2.3-4.7) mg/dL Magnesium 2.2 (1.6-2.6) mg/dL Troponin I (0-0.03) ng/mL C-Reactive Protein 92 H (Less than 5) mg/L B-Natriuretic Peptide (0-100) pg/mL Vancomycin Trough (10-20) mcg/mL Blood Type Antibody Screen Crossmatch 06/03/16 06/03/16 06/04/16 Range/Units 07:23 15:30 04:05 WBC 7.8 D (4.3-11.1) K/mcL RBC 4.27 (4.19-5.50) M/mcL Hgb 10.6 L D (12.9-16.9) g/dL Hct 36.2 L (37.5-50.1) % MCV 84.8 (83.0-100.0) fL MCH 24.8 L (28.0-33.3) pg MCHC 29.3 L (31.6-35.5) g/dL RDW 18.1 H (11.5-14.5) % Plt Count 377 (140-400) K/mcL MPV 10.0 (9.4-12.4) fL Immature Gran % 1.8 (0-4) % Seg Neutrophils % 79.1 % Lymphocytes % 10.9 % Monocytes % 8.1 % Eosinophils % 0.0 % Basophils % 0.1 % Neutrophils # 6.2 (1.6-8.9) K/mcL Lymphocytes # 0.9 (0.6-4.6) K/mcL Monocytes # 0.6 (0.0-1.3) K/mcL Eosinophils # 0.0 (0.0-0.6) K/mcL Basophils # 0.0 (0.0-0.2) K/mcL Platelet Estimate (Normal) Polychromasia (Not Present) Hypochromasia (Not Present) Anisocytosis (Not Present) Microcytosis (Not Present) ESR (0-10) mm/hr VBG pH (7.32-7.42) pH Units VBG pCO2 (41-51) mmHg VBG pO2 (25-40) mmHg VBG HCO3 (21-27) mEq/L Sodium (136-145) mEq/L Potassium (3.5-4.5) mEq/L Chloride (98-109) mEq/L Carbon Dioxide (19-29) mEq/L BUN (8-26) mg/dL Creatinine (0.72-1.25) mg/dL Est GFR ( Amer) (> 60) Est GFR (Non-Af Amer) (> 60) BUN/Creatinine Ratio (6-26) Glucose (70-99) mg/dL Calculated Osmolality (280-300) Lactic Acid (0.5-2.2) mmol/L Calcium (8.6-10.8) mg/dL Phosphorus (2.3-4.7) mg/dL Magnesium (1.6-2.6) mg/dL Troponin I 0.00 (0-0.03) ng/mL C-Reactive Protein (Less than 5) mg/L B-Natriuretic Peptide (0-100) pg/mL Vancomycin Trough (10-20) mcg/mL Blood Type A POSITIVE Antibody Screen NEGATIVE Crossmatch See Detail 06/05/16 06/05/16 06/05/16 Range/Units 01:00 04:10 04:10 WBC 9.8 (4.3-11.1) K/mcL RBC 4.05 L (4.19-5.50) M/mcL Hgb 10.2 L (12.9-16.9) g/dL Hct 35.6 L (37.5-50.1) % MCV 87.9 (83.0-100.0) fL MCH 25.2 L (28.0-33.3) pg MCHC 28.7 L (31.6-35.5) g/dL RDW 19.0 H (11.5-14.5) % Plt Count 397 (140-400) K/mcL MPV 9.4 (9.4-12.4) fL Immature Gran % 3.3 (0-4) % Seg Neutrophils % 67.5 % Lymphocytes % 13.8 % Monocytes % 14.9 % Eosinophils % 0.1 % Basophils % 0.4 % Neutrophils # 6.6 (1.6-8.9) K/mcL Lymphocytes # 1.4 (0.6-4.6) K/mcL Monocytes # 1.5 H (0.0-1.3) K/mcL Eosinophils # 0.0 (0.0-0.6) K/mcL Basophils # 0.0 (0.0-0.2) K/mcL Platelet Estimate (Normal) Polychromasia (Not Present) Hypochromasia (Not Present) Anisocytosis (Not Present) Microcytosis (Not Present) ESR (0-10) mm/hr VBG pH (7.32-7.42) pH Units VBG pCO2 (41-51) mmHg VBG pO2 (25-40) mmHg VBG HCO3 (21-27) mEq/L Sodium 144 (136-145) mEq/L Potassium 4.5 (3.5-4.5) mEq/L Chloride 106 (98-109) mEq/L Carbon Dioxide 31 H (19-29) mEq/L BUN 32 H D (8-26) mg/dL Creatinine 0.78 (0.72-1.25) mg/dL Est GFR ( Amer) > 60 (> 60) Est GFR (Non-Af Amer) > 60 (> 60) BUN/Creatinine Ratio 41 H (6-26) Glucose 106 H (70-99) mg/dL Calculated Osmolality 305 H (280-300) Lactic Acid (0.5-2.2) mmol/L Calcium 8.0 L (8.6-10.8) mg/dL Phosphorus (2.3-4.7) mg/dL Magnesium (1.6-2.6) mg/dL Troponin I (0-0.03) ng/mL C-Reactive Protein (Less than 5) mg/L B-Natriuretic Peptide (0-100) pg/mL Vancomycin Trough 19.7 (10-20) mcg/mL Blood Type Antibody Screen Crossmatch 06/05/16 Range/Units 04:10 WBC (4.3-11.1) K/mcL RBC (4.19-5.50) M/mcL Hgb (12.9-16.9) g/dL Hct (37.5-50.1) % MCV (83.0-100.0) fL MCH (28.0-33.3) pg MCHC (31.6-35.5) g/dL RDW (11.5-14.5) % Plt Count (140-400) K/mcL MPV (9.4-12.4) fL Immature Gran % (0-4) % Seg Neutrophils % % Lymphocytes % % Monocytes % % Eosinophils % % Basophils % % Neutrophils # (1.6-8.9) K/mcL Lymphocytes # (0.6-4.6) K/mcL Monocytes # (0.0-1.3) K/mcL Eosinophils # (0.0-0.6) K/mcL Basophils # (0.0-0.2) K/mcL Platelet Estimate (Normal) Polychromasia (Not Present) Hypochromasia (Not Present) Anisocytosis (Not Present) Microcytosis (Not Present) ESR 23 H (0-10) mm/hr VBG pH (7.32-7.42) pH Units VBG pCO2 (41-51) mmHg VBG pO2 (25-40) mmHg VBG HCO3 (21-27) mEq/L Sodium (136-145) mEq/L Potassium (3.5-4.5) mEq/L Chloride (98-109) mEq/L Carbon Dioxide (19-29) mEq/L BUN (8-26) mg/dL Creatinine (0.72-1.25) mg/dL Est GFR ( Amer) (> 60) Est GFR (Non-Af Amer) (> 60) BUN/Creatinine Ratio (6-26) Glucose (70-99) mg/dL Calculated Osmolality (280-300) Lactic Acid (0.5-2.2) mmol/L Calcium (8.6-10.8) mg/dL Phosphorus (2.3-4.7) mg/dL Magnesium (1.6-2.6) mg/dL Troponin I (0-0.03) ng/mL C-Reactive Protein (Less than 5) mg/L B-Natriuretic Peptide (0-100) pg/mL Vancomycin Trough (10-20) mcg/mL Blood Type Antibody Screen Crossmatch Assessments/Treatments 12 lead ECG assessment Start: 06/02/16 21: 44 Freq: NOW Status: Complete Document 06/02/16 22:03 NNN (Rec: 06/02/16 22:03 NNN [id number]) EKG Time EKG Completed 21:57 EKG performed by Amber FUNES EKG shown to and signed by Dr. Wagner Cardiac Monitoring Med/Surg Start: 06/03/16 00: 31 Freq: .CONT Status: Discharge Document 06/03/16 06:15 BMD (Rec: 06/03/16 07:52 BMD [id number]) Cardiac Monitoring Monitor Number [id number] Strip placed in Chart Yes Memory Cleared No Alarms/Limits HR Alarm 125/40 Heart Rate 67 EKG Method Telemetry Rhythm Sinus Rhythm MN Interval 0.10 QRS Interval 0.07 QT Interval 0.36 Document 06/03/16 13:08 BKG (Rec: 06/03/16 13:09 BKG [id number]) Cardiac Monitoring Monitor Number [id number] Strip placed in Chart Yes Memory Cleared No Alarms/Limits HR Alarm 125/40 Heart Rate 69 EKG Method Telemetry Rhythm Sinus Rhythm MN Interval 0.09 QRS Interval 0.06 QT Interval 0.38 Cardiac monitoring Start: 06/02/16 21: 28 Freq: Status: Complete Document 06/02/16 21:29 NNN (Rec: 06/02/16 21:41 NNN [id number]) Cardiac Monitoring Heart Rate 92 Monitoring Method Telemetry Rhythm Sinus Rhythm Monitor Number [id number] Strip placed in Chart No Monitor History Reviewed Yes Memory Cleared Yes Cardiac monitoring Start: 06/03/16 00: 30 Freq: .ONCE Status: Complete Document 06/04/16 01:20 ARH (Rec: 06/04/16 02:45 ARH [id number]) Cardiac Monitoring Monitor Number [id number] Strip placed in Chart Yes Alarms/Limits HR Alarm 125/40 Heart Rate 80 EKG Method Telemetry Rhythm Sinus Rhythm MN Interval 0.13 QRS Interval 0.03 QT Interval 0.32 Document 06/04/16 11:00 TMR (Rec: 06/04/16 11:01 TMR [id number]) Cardiac Monitoring Monitor Number [id number] Strip placed in Chart Yes Memory Cleared No Alarms/Limits HR Alarm 125/40 Heart Rate 79 EKG Method Telemetry Rhythm Sinus Rhythm MN Interval 0.10 QRS Interval 0.06 QT Interval 0.36 Discharge Assessment Start: 06/02/16 23: 41 Freq: Status: Discharge Document 06/06/16 14:29 [id number] (Rec: 06/06/16 14:43 [id number]) Discharge Assessment Discharge Disposition [facility] Facility Mode of Discharge Ambulance/EMS Accompanied By Ambulance Personnel Belongings sent with patient Yes Services Needed at Discharge Occupational Therapy Oxygen Therapy Physical Therapy Summary of Care Provided Yes Patient was provided information on Yes accessing patient portal Level Of Consciousness Awake Alert Appropriate Eating (Feeding) Ability Setup Bathing Ability 2 Person Assist Upper Body Dressing Ability Total Assistance Lower Body Dressing Ability Total Assistance Ambulation Ability Maximum Assistance 2 Person Assist Toileting Ability Total Assistance Bowel Incontinent Bladder Incontinent Has Patient Been in Isolation During No Hospital Stay Doctor's Appointment Made Yes Patient Education Given No Discharge Instructions Given To Primary Supervisory Forester Home Care Nurse/Telephone Discharge Instructions Address Diet Medications Follow Up Problems Patient instructed regarding new No: Report called to SNF medications and to provide the list to their Primary Care Provider Patient instructed to carry their No: Transfer to SNF medication list with them at all times in case of emergency Prescriptions Given To Primary Supervisory Forester Was patient discharged on Warfarin for No confirmed VTE diagnosis? Was patient discharged with diagnosis of No ischemic or hemmorrhagic stroke? Flu Vaccine Given No Reason Flu Vaccine Not Given Previously Received Current Flu Season Vaccine administration documented on No EMAR Nursing Summary Patient is beiung discharged to [facility] SN[facility]. Patient will silke wound care to BLE every 8 -10hrs. Dressing were changed 06/06/16 0630, Wound care orders faxed to SNF. Patient has a SAW PICC line for IV ATB therapy. Last dose of Maximpime 2g was 06/06/16 1037. Last dose of Vancocin 750mg was 06/06/16 1412. Patient qualified for bipap but refuses to wear it. Patient is on 4L NC. Family requested for patient to see Dr Quiros prior to discharge. Dr Quiros is not aviable at this time and Santana DOWNING said for patient to f/u outpatient. Patient is to see Dr Quiros at the wound clinic 06/14/16 at 1:45pm. ED Discharge Assessment Start: 06/02/16 21: 28 Freq: Status: Discharge Document 06/03/16 00:08 NNN (Rec: 06/03/16 00:09 NNN [id number]) ED Discharge Assessment ED Discharge Disposition Admitted ED Condition on Discharge Fair Med Rec/Patient Pharmacy Completed? No Admitted to 3B Bed assigned 3B24 Transported by pharmacy technician infusion Transported with oxygen Report given to Nurse Care transferred to (name/credentials) Fermín RN Clinical Documentation Summary Provided Yes Pain Scale 0 Pain Scale Used Standard (1-10) Blood Pressure 108/65 Heart rate 90 Respiratory Rate 18 Oxygen Delivery Nasal Cannula Oxygen Saturation 97 Critical Care Minutes 0 ED Shortness of Breath Assessment Start: 06/02/16 21: 28 Freq: Status: Complete Document 06/02/16 21:29 NNN (Rec: 06/02/16 21:41 NNN [id number]) Shortness of Breath Sepsis Infection Criteria Present suspected infection Sepsis SIRS Criteria RR > 20 rpm HR > 90 bpm Sepsis Organ Dysfunction Criteria none Present Sepsis Screen Sepsis Risk Sepsis Action Taken provider notified Sepsis Name of Provider Notified Mauricio Colbert Symptoms/Complaint Shortness of Breath Duration Constant Severity Mild Context Recent Illness Improves With Oxygen Worsens With Lying Flat Associated Symptoms Wheezing Treatment Prior to Arrival Oxygen Bronchodilator Respiratory Depth Normal Effort Normal for Patient Non-Labored Pattern Regular Tachypnea Anterior Bilateral Throughout Breath Sounds Inspiratory Wheezing Expiratory Wheezing Cough Description Involuntary Non-Productive Frequency Continuous Level Of Consciousness Awake Alert Appropriate Follows Commands Patient Orientation Person Place Time Patient Behavior Appropriate Cooperative Skin Temperature Warm Skin Moisture Dry Skin Turgor Normal Elevate extremity Start: 06/05/16 13: 03 Freq: PRN Status: Discharge Document 06/05/16 15:27 AK (Rec: 06/05/16 15:37 AK [id number]) Fall Precautions Acute Start: 06/03/16 02: 49 Freq: Q12H Status: Discharge Document 06/03/16 01:45 BMD (Rec: 06/03/16 03:19 BMD [id number]) [facility] Fall Risk Assessment Tool Age less than60 years age (0 points) Fall History No falls within last 6 months (0 points) Elimination, Bowel, and Urine Incontinence (2 points) Medications: Includes [employer]/opiates, On 2 or more high fall risk antivulsants, ant-hypertensives, drugs (5 points) diuretics, hypnotics, Patient Care Equipment: Any equipment Two present (2 points) that tethers patient (e.g. IV infusions, chest tube, indwelling Mobility Unsteady gait (2 points) Cognition Lack of understanding of physical/cognitive limitations (4 points) Total Fall Risk Score 15 Fall Risk Category High Risk (Greater than 13) Fall Risk Interventions Low Risk Interventions Bed in lowest position Top side rails up x 2 Secure brake on bed Use properly fitting non-skid footwear Call light and frequently needed objects within reach Encourage patients/families to call for assistance when needed Fall education including risk assessment, injury risk and routine/ Inspect environment for safety and communication risk Supervise and assist with toileting/ADLs as needed Moderate Risk Interventions Institue fall-risk tooklit ( yellow flag, yellow non-skid socks and High Risk Interventions Remain with patient while toileting Activate bed/chair exit Document 06/03/16 09:18 BK (Rec: 06/03/16 09:33 BKG [id number]) [facility] Fall Risk Assessment Tool Age less than60 years age (0 points) Fall History No falls within last 6 months (0 points) Elimination, Bowel, and Urine Incontinence (2 points) Medications: Includes [employer]/opiates, On 2 or more high fall risk antivulsants, ant-hypertensives, drugs (5 points) diuretics, hypnotics, Patient Care Equipment: Any equipment Two present (2 points) that tethers patient (e.g. IV infusions, chest tube, indwelling Mobility Unsteady gait (2 points) Cognition Lack of understanding of physical/cognitive limitations (4 points) Total Fall Risk Score 15 Fall Risk Category High Risk (Greater than 13) Fall Risk Interventions Low Risk Interventions Bed in lowest position Top side rails up x 2 Secure brake on bed Use properly fitting non-skid footwear Call light and frequently needed objects within reach Encourage patients/families to call for assistance when needed Fall education including risk assessment, injury risk and routine/ Inspect environment for safety and communication risk Supervise and assist with toileting/ADLs as needed Moderate Risk Interventions Institue fall-risk tooklit ( yellow flag, yellow non-skid socks and Frequent reorientation for confused patients High Risk Interventions Remain with patient while toileting Activate bed/chair exit Move patient to room with best visual access Document 06/03/16 19:00 ARH (Rec: 06/03/16 20:26 ARH [id number]) [facility] Fall Risk Assessment Tool Age less than60 years age (0 points) Fall History No falls within last 6 months (0 points) Elimination, Bowel, and Urine Incontinence (2 points) Medications: Includes [employer]/opiates, On 2 or more high fall risk antivulsants, ant-hypertensives, drugs (5 points) diuretics, hypnotics, Patient Care Equipment: Any equipment Two present (2 points) that tethers patient (e.g. IV infusions, chest tube, indwelling Mobility Unsteady gait (2 points) Cognition Lack of understanding of physical/cognitive limitations (4 points) Total Fall Risk Score 15 Fall Risk Category High Risk (Greater than 13) Fall Risk Interventions Low Risk Interventions Bed in lowest position Top side rails up x 2 Secure brake on bed Use properly fitting non-skid footwear Call light and frequently needed objects within reach Encourage patients/families to call for assistance when needed Fall education including risk assessment, injury risk and routine/ Inspect environment for safety and communication risk Supervise and assist with toileting/ADLs as needed Moderate Risk Interventions Institue fall-risk tooklit ( yellow flag, yellow non-skid socks and Frequent reorientation for confused patients High Risk Interventions Remain with patient while toileting Activate bed/chair exit Move patient to room with best visual access Document 06/04/16 09:10 TMR (Rec: 06/04/16 09:10 TMR [id number]) [facility] Fall Risk Assessment Tool Age less than60 years age (0 points) Fall History No falls within last 6 months (0 points) Elimination, Bowel, and Urine Incontinence (2 points) Medications: Includes [employer]/opiates, On 2 or more high fall risk antivulsants, ant-hypertensives, drugs (5 points) diuretics, hypnotics, Patient Care Equipment: Any equipment Two present (2 points) that tethers patient (e.g. IV infusions, chest tube, indwelling Mobility Unsteady gait (2 points) Cognition Lack of understanding of physical/cognitive limitations (4 points) Total Fall Risk Score 15 Fall Risk Category High Risk (Greater than 13) Fall Risk Interventions Low Risk Interventions Bed in lowest position Top side rails up x 2 Secure brake on bed Use properly fitting non-skid footwear Call light and frequently needed objects within reach Encourage patients/families to call for assistance when needed Fall education including risk assessment, injury risk and routine/ Inspect environment for safety and communication risk Supervise and assist with toileting/ADLs as needed Moderate Risk Interventions Institue fall-risk tooklit ( yellow flag, yellow non-skid socks and Frequent reorientation for confused patients High Risk Interventions Remain with patient while toileting Activate bed/chair exit Move patient to room with best visual access Document 06/04/16 20:00 [facility] (Rec: 06/05/16 01:14 [facility] [id number]) [facility] Fall Risk Assessment Tool Age less than60 years age (0 points) Fall History No falls within last 6 months (0 points) Elimination, Bowel, and Urine Incontinence (2 points) Medications: Includes [employer]/opiates, On 2 or more high fall risk antivulsants, ant-hypertensives, drugs (5 points) diuretics, hypnotics, Patient Care Equipment: Any equipment Two present (2 points) that tethers patient (e.g. IV infusions, chest tube, indwelling Mobility Unsteady gait (2 points) Cognition Lack of understanding of physical/cognitive limitations (4 points) Total Fall Risk Score 15 Fall Risk Category High Risk (Greater than 13) Fall Risk Interventions Low Risk Interventions Bed in lowest position Top side rails up x 2 Secure brake on bed Use properly fitting non-skid footwear Call light and frequently needed objects within reach Encourage patients/families to call for assistance when needed Fall education including risk assessment, injury risk and routine/ Inspect environment for safety and communication risk Supervise and assist with toileting/ADLs as needed Moderate Risk Interventions Institue fall-risk tooklit ( yellow flag, yellow non-skid socks and Frequent reorientation for confused patients High Risk Interventions Remain with patient while toileting Activate bed/chair exit Move patient to room with best visual access Document 06/05/16 07:51 [facility] (Rec: 06/05/16 08:03 [facility] [id number]) [facility] Fall Risk Assessment Tool Age less than60 years age (0 points) Fall History No falls within last 6 months (0 points) Elimination, Bowel, and Urine Incontinence (2 points) Medications: Includes [employer]/opiates, On 2 or more high fall risk antivulsants, ant-hypertensives, drugs (5 points) diuretics, hypnotics, Patient Care Equipment: Any equipment Two present (2 points) that tethers patient (e.g. IV infusions, chest tube, indwelling Mobility Unsteady gait (2 points) Cognition Lack of understanding of physical/cognitive limitations (4 points) Total Fall Risk Score 15 Fall Risk Category High Risk (Greater than 13) Fall Risk Interventions Low Risk Interventions Bed in lowest position Top side rails up x 2 Secure brake on bed Use properly fitting non-skid footwear Call light and frequently needed objects within reach Encourage patients/families to call for assistance when needed Fall education including risk assessment, injury risk and routine/ Inspect environment for safety and communication risk Supervise and assist with toileting/ADLs as needed Moderate Risk Interventions Institue fall-risk tooklit ( yellow flag, yellow non-skid socks and Frequent reorientation for confused patients High Risk Interventions Remain with patient while toileting Activate bed/chair exit Move patient to room with best visual access Document 06/06/16 01:45 WDT (Rec: 06/06/16 03:04 WDT [id number]) [facility] Fall Risk Assessment Tool Age less than60 years age (0 points) Fall History No falls within last 6 months (0 points) Elimination, Bowel, and Urine Incontinence (2 points) Medications: Includes [employer]ST[employer]ER/opiates, On 2 or more high fall risk antivulsants, ant-hypertensives, drugs (5 points) diuretics, hypnotics, Patient Care Equipment: Any equipment Two present (2 points) that tethers patient (e.g. IV infusions, chest tube, indwelling Mobility Unsteady gait (2 points) Cognition Lack of understanding of physical/cognitive limitations (4 points) Total Fall Risk Score 15 Fall Risk Category High Risk (Greater than 13) Fall Risk Interventions Low Risk Interventions Bed in lowest position Top side rails up x 2 Secure brake on bed Use properly fitting non-skid footwear Call light and frequently needed objects within reach Encourage patients/families to call for assistance when needed Fall education including risk assessment, injury risk and routine/ Inspect environment for safety and communication risk Supervise and assist with toileting/ADLs as needed Moderate Risk Interventions Institue fall-risk tooklit ( yellow flag, yellow non-skid socks and Frequent reorientation for confused patients High Risk Interventions Remain with patient while toileting Activate bed/chair exit Move patient to room with best visual access Falls precautions (Corey-Kianna) Start: 06/03/16 00: 29 Freq: ONCE Status: Discharge Document 06/03/16 01:45 BMD (Rec: 06/03/16 03:19 BMD [id number]) [facility] Fall Risk Assessment Age 18-59 years Gender Male Mental Status: Oriented & Cooperative Physical Status: Generalized Muscle Weakness Elimination: Elimination w/assist, Diarrhea or Incontinence Impairments: None Gait or Balance: Unsteady walking, standing, walker, crutches, furniture History of falls in past 6 months No History Mood Stabilizer Medications Not taking prior to admission Benzodiazepines Not taking prior to admission Diuretics Taking prior to admission Narcotics Taking prior to admission Sedatives/Hypnotics Not taking prior to admission Atypical Anti-Psychotics Not taking prior to admission Alcohol Withdrawal Protocol Not on Alcohol Withdrawal Protocol Fall Risk Score 8 Fall Risk Level High Risk Fall Prevention Interventions Interventions in Place Bed in lowest position Top side rails up times 2 Secure brake on bed Use properly fitting non-skid footwear Call light and frequently needed objects within reach *Call, Don't Fall* Sign posted in room Fall education information reviewed with patient and/or family Encourage patient to call for assistance if needed Inspect environment for safety during face/face handoff or change of s Supervise and assist with toileting/ADLS as needed Interventions in Place Bath fall-risk tool kit with yellow band Evaluate need for PT/OT consult Remain with patient during toileting Bed exit alarm on Document 06/03/16 09:18 BENJAMIN (Rec: 06/03/16 09:33 CRYSTAL [id number]) Adam Fall Risk Assessment Age 18-59 years Gender Male Mental Status: Confused, Memory Loss, Forgets Limitations, Intoxicated Physical Status: Generalized Muscle Weakness Elimination: Independent & Incontinent, Urgency or Frequency Impairments: Uncorrected visual, hearing, language, speech Gait or Balance: Physically unable to walk/ stand (but may attempt) History of falls in past 6 months No History Mood Stabilizer Medications Not taking prior to admission Benzodiazepines Not taking prior to admission Diuretics Not taking prior to admission Narcotics Not taking prior to admission Sedatives/Hypnotics Not taking prior to admission Atypical Anti-Psychotics Not taking prior to admission Alcohol Withdrawal Protocol Not on Alcohol Withdrawal Protocol Fall Risk Score 8 Fall Risk Level High Risk Fall Prevention Interventions Interventions in Place Bed in lowest position Top side rails up times 2 Secure brake on bed Use properly fitting non-skid footwear Call light and frequently needed objects within reach *Call, Don't Fall* Sign posted in room Fall education information reviewed with patient and/or family Encourage patient to call for assistance if needed Inspect environment for safety during face/face handoff or change of s Supervise and assist with toileting/ADLS as needed Interventions in Place Bath fall-risk tool kit with yellow band Evaluate need for PT/OT consult Remain with patient during toileting Bed exit alarm on Document 06/03/16 19:00 ARH (Rec: 06/03/16 20:26 ARH [id number]) [facility] Fall Risk Assessment Age 18-59 years Gender Male Mental Status: Oriented & Cooperative Physical Status: Generalized Muscle Weakness Elimination: Elimination w/assist, Diarrhea or Incontinence Impairments: None Gait or Balance: Unsteady walking, standing, walker, crutches, furniture History of falls in past 6 months No History Mood Stabilizer Medications Not taking prior to admission Benzodiazepines Not taking prior to admission Diuretics Not taking prior to admission Narcotics Not taking prior to admission Sedatives/Hypnotics Not taking prior to admission Atypical Anti-Psychotics Not taking prior to admission Alcohol Withdrawal Protocol Not on Alcohol Withdrawal Protocol Fall Risk Score 6 Fall Risk Level Low Risk Fall Prevention Interventions Interventions in Place Bed in lowest position Top side rails up times 2 Secure brake on bed Use properly fitting non-skid footwear Call light and frequently needed objects within reach *Call, Don't Fall* Sign posted in room Fall education information reviewed with patient and/or family Encourage patient to call for assistance if needed Inspect environment for safety during face/face handoff or change of s Supervise and assist with toileting/ADLS as needed Interventions in Place Bath fall-risk tool kit with yellow band Evaluate need for PT/OT consult Remain with patient during toileting Bed exit alarm on Document 06/04/16 20:00 [facility] (Rec: 06/05/16 01:14 [facility] [id number]) [facility] Fall Risk Assessment Age 18-59 years Gender Male Mental Status: Oriented & Uncooperative Physical Status: Generalized Muscle Weakness Elimination: Elimination w/assist, Diarrhea or Incontinence Impairments: None Gait or Balance: Physically unable to walk/ stand (but may attempt) History of falls in past 6 months No History Mood Stabilizer Medications Not taking prior to admission Benzodiazepines Not taking prior to admission Diuretics Not taking prior to admission Narcotics Not taking prior to admission Sedatives/Hypnotics Not taking prior to admission Atypical Anti-Psychotics Not taking prior to admission Alcohol Withdrawal Protocol Not on Alcohol Withdrawal Protocol Fall Risk Score 5 Fall Risk Level Low Risk Fall Prevention Interventions Interventions in Place Bed in lowest position Top side rails up times 2 Secure brake on bed Use properly fitting non-skid footwear Call light and frequently needed objects within reach *Call, Don't Fall* Sign posted in room Fall education information reviewed with patient and/or family Encourage patient to call for assistance if needed Inspect environment for safety during face/face handoff or change of s Supervise and assist with toileting/ADLS as needed Interventions in Place Bath fall-risk tool kit with yellow band Evaluate need for PT/OT consult Remain with patient during toileting Bed exit alarm on Document 06/06/16 09:14 [id number] (Rec: 06/06/16 09:20 [id number]) Adam Fall Risk Assessment Age 18-59 years Gender Male Mental Status: Oriented & Cooperative Physical Status: Generalized Muscle Weakness Elimination: Elimination w/assist, Diarrhea or Incontinence Impairments: None Gait or Balance: Physically unable to walk/ stand (but may attempt) History of falls in past 6 months No History Mood Stabilizer Medications Not taking prior to admission Benzodiazepines Not taking prior to admission Diuretics Taking prior to admission Narcotics Not taking prior to admission Sedatives/Hypnotics Not taking prior to admission Atypical Anti-Psychotics Not taking prior to admission Alcohol Withdrawal Protocol Not on Alcohol Withdrawal Protocol Fall Risk Score 5 Fall Risk Level Low Risk Fall Prevention Interventions Interventions in Place Bed in lowest position Top side rails up times 2 Secure brake on bed Use properly fitting non-skid footwear Call light and frequently needed objects within reach *Call, Don't Fall* Sign posted in room Fall education information reviewed with patient and/or family Encourage patient to call for assistance if needed Inspect environment for safety during face/face handoff or change of s Supervise and assist with toileting/ADLS as needed Interventions in Place [employer] fall-risk tool kit with yellow band Evaluate need for PT/OT consult Remain with patient during toileting Bed exit alarm on Family History-Meaningful Use Start: 06/03/16 02: 49 Freq: .Once Status: Discharge Document 06/03/16 15:14 BENJAMIN (Rec: 06/03/16 15:22 [id number] Family History-Meaningful Use Father Living Status Still Living Hx Family Cardiac Disorders Yes: htn Hx Family Cancer Yes: thyroid ca Mother Living Status Hx Family Cardiac Disorders Yes: chf Hx Family Respiratory Disorders Yes: pneumonia Hx Family Endocrine Disorder Yes: diabetic Flu Vaccine Screen Start: 06/02/16 23: 41 Freq: Status: Discharge Document 06/06/16 14:29 [id number] (Rec: 06/06/16 14:43 [id number]) Flu Vaccine Screen Flu Vaccine Contraindications Previously Received Current Flu Season Vaccine Information Sheet Given(Version Yes 11/06/2014) Patient meets criteria for vaccination No and consents to receive it Hygiene activity Start: 06/03/16 02: 49 Freq: .PRN Status: Discharge Document 06/03/16 06:43 [id number] (Rec: 06/03/16 06:43 [id number]) Hygiene Linen Change Complete Document 06/03/16 12:33 [id number] (Rec: 06/03/16 12:33 [id number]) Hygiene Bath Type Full Bed Bath Linen Change Complete Document 06/03/16 15:14 [id number] (Rec: 06/03/16 15:15 [id number]) Hygiene Linen Change Partial Document 06/03/16 20:10 ARH (Rec: 06/03/16 21:15 ARH [id number]) Hygiene Linen Change Complete Document 06/03/16 20:28 OJJ (Rec: 06/03/16 20:28 OJJ [id number]) Hygiene Bath Type Refused Document 06/04/16 04:06 TMM (Rec: 06/04/16 04:12 TMM [id number]) Hygiene Bath Type Partial Bed Bath Bathing Ability 3 or More Person Assist Edwards Care Completed By N/A Linen Change Complete Document 06/04/16 10:17 [id number] (Rec: 06/04/16 10:17 [id number]) Hygiene Bath Type Full Bed Bath Linen Change Complete Document 06/04/16 14:35 [id number] (Rec: 06/04/16 14:35 [id number]) Hygiene Bath Type Partial Bed Bath Linen Change Complete Document 06/04/16 16:29 [id number] (Rec: 06/04/16 16:29 [id number]) Hygiene Bath Type Partial Bed Bath Linen Change Complete Document 06/05/16 11:19 EAV (Rec: 06/05/16 11:20 EAV [id number]) Hygiene Bath Type Full Bed Bath Bathing Ability 2 Person Assist Edwards Care Completed By N/A Linen Change Complete Other Hygiene Hair Washed Document 06/06/16 09:00 JSB (Rec: 06/06/16 10:32 JSB [id number]) Hygiene Bath Type Full Bed Bath Bathing Ability 2 Person Assist Linen Change Complete Document 06/06/16 14:37 JSB (Rec: 06/06/16 14:38 JSB [id number]) Hygiene Linen Change Complete IV-Invasive Line Management Start: 06/03/16 02: 49 Freq: Q8H Status: Discharge Document 06/03/16 01:45 BMD (Rec: 06/03/16 03:19 BMD [id number]) IV/Invasive Line Assessment Right Upper Arm Reason for Line Insertion/Rationale for Provide Access for IV Insertion Medication(s) Provide Access for Emergency IV Catheter Type PICC Line Site Observation Patent Dressing Applied Window Dressing Dry/Intact Line Care Saline Flush P-Locked Labs drawn from Line* No Document 06/03/16 06:15 BMD (Rec: 06/03/16 07:52 BMD [id number]) IV/Invasive Line Assessment Right Upper Arm Reason for Line Insertion/Rationale for Provide Access for IV Insertion Medication(s) Provide Access for Emergency IV Catheter Type PICC Line Site Observation Patent Dressing Applied Window Dressing Dry/Intact Line Care Saline Flush P-Locked Labs drawn from Line* No Document 06/03/16 09:18 BKG (Rec: 06/03/16 09:33 BKG [id number]) IV/Invasive Line Assessment Right Upper Arm Reason for Line Insertion/Rationale for Provide Access for IV Insertion Medication(s) Provide Access for Emergency IV Catheter Type PICC Line Site Observation Patent Dressing Applied Window Dressing Dry/Intact Line Care Saline Flush P-Locked Labs drawn from Line* No Document 06/03/16 13:08 BKG (Rec: 06/03/16 13:09 BKG [id number]) IV/Invasive Line Assessment Right Upper Arm Reason for Line Insertion/Rationale for Provide Access for IV Insertion Medication(s) Provide Access for Emergency IV Catheter Type PICC Line Site Observation Patent Dressing Applied Window Dressing Dry/Intact Line Care Saline Flush P-Locked Labs drawn from Line* No Document 06/03/16 17:49 BKG (Rec: 06/03/16 17:55 BKG [id number]) IV/Invasive Line Assessment Right Upper Arm Reason for Line Insertion/Rationale for Replace Lost Fluids Insertion Provide Access for IV Medication(s) Provide Access for Emergency IV Catheter Type PICC Line Site Observation Patent Dressing Applied Window Dressing Dry/Intact Line Care Saline Flush P-Locked Labs drawn from Line* Yes Document 06/03/16 19:00 ARH (Rec: 06/03/16 20:26 ARH [id number]) IV/Invasive Line Assessment Right Upper Arm Reason for Line Insertion/Rationale for Replace Lost Fluids Insertion Provide Access for IV Medication(s) Provide Access for Emergency IV Catheter Type PICC Line Site Observation Patent Dressing Applied Window Dressing Dry/Intact Line Care Saline Flush P-Locked Labs drawn from Line* Yes Document 06/03/16 22:30 ARH (Rec: 06/04/16 01:21 ARH [id number]) IV/Invasive Line Assessment Right Upper Arm Reason for Line Insertion/Rationale for Replace Lost Fluids Insertion Provide Access for IV Medication(s) Provide Access for Emergency IV Catheter Type PICC Line Site Observation Patent Site Observation Intervention Inspected Line Dressing Applied Window Dressing Transparent Dressing Chlorhexidine Gluconate Impregnated Disc Dry/Intact Line Care Saline Flush Dressing Changed Document 06/04/16 03:54 ARH (Rec: 06/04/16 03:54 ARH [id number]) IV/Invasive Line Assessment Right Upper Arm Reason for Line Insertion/Rationale for Replace Lost Fluids Insertion Provide Access for IV Medication(s) Provide Access for Emergency IV Catheter Type PICC Line Site Observation Patent Site Observation Intervention Inspected Line Dressing Applied Window Dressing Transparent Dressing Chlorhexidine Gluconate Impregnated Disc Dry/Intact Line Care Saline Flush Labs drawn from Line* Yes Document 06/04/16 09:12 TMR (Rec: 06/04/16 09:19 TMR [id number]) IV/Invasive Line Assessment Right Upper Arm Reason for Line Insertion/Rationale for Replace Lost Fluids Insertion Provide Access for IV Medication(s) Provide Access for Emergency IV Catheter Type PICC Line Site Observation Patent Site Observation Intervention Inspected Line Dressing Applied Window Dressing Transparent Dressing Chlorhexidine Gluconate Impregnated Disc Dry/Intact Line Care Saline Flush Labs drawn from Line* Yes Document 06/04/16 16:23 TMR (Rec: 06/04/16 16:44 TMR [id number]) IV/Invasive Line Assessment Right Upper Arm Reason for Line Insertion/Rationale for Replace Lost Fluids Insertion Provide Access for IV Medication(s) Provide Access for Emergency IV Catheter Type PICC Line Site Observation Patent Site Observation Intervention Inspected Line Dressing Applied Window Dressing Transparent Dressing Chlorhexidine Gluconate Impregnated Disc Dry/Intact Line Care Saline Flush Labs drawn from Line* Yes Document 06/04/16 20:00 KJC (Rec: 06/05/16 01:14 [id number]) IV/Invasive Line Assessment Right Upper Arm Reason for Line Insertion/Rationale for Replace Lost Fluids Insertion Provide Access for IV Medication(s) Provide Access for Emergency IV Catheter Type PICC Line Site Observation Patent Site Observation Intervention Inspected Line Dressing Applied Window Dressing Transparent Dressing Chlorhexidine Gluconate Impregnated Disc Dry/Intact Line Care Saline Flush Labs drawn from Line* Yes Document 06/05/16 04:16 KJC (Rec: 06/05/16 04:19 [id number]) IV/Invasive Line Assessment Right Upper Arm Reason for Line Insertion/Rationale for Replace Lost Fluids Insertion Provide Access for IV Medication(s) Provide Access for Emergency IV Catheter Type PICC Line Site Observation Patent Site Observation Intervention Inspected Line Dressing Applied Window Dressing Transparent Dressing Chlorhexidine Gluconate Impregnated Disc Dry/Intact Line Care Saline Flush Labs drawn from Line* Yes Document 06/05/16 07:51 [facility] (Rec: 06/05/16 08:03 [place] [id number]) IV/Invasive Line Assessment Right Upper Arm Reason for Line Insertion/Rationale for Replace Lost Fluids Insertion Provide Access for IV Medication(s) Provide Access for Emergency IV Catheter Type PICC Line Site Observation Patent Site Observation Intervention Inspected Line Dressing Applied Window Dressing Transparent Dressing Chlorhexidine Gluconate Impregnated Disc Dry/Intact Line Care Saline Flush Labs drawn from Line* Yes Document 06/05/16 15:27 [facility] (Rec: 06/05/16 15:[id number]) IV/Invasive Line Assessment Right Upper Arm Reason for Line Insertion/Rationale for Replace Lost Fluids Insertion Provide Access for IV Medication(s) Provide Access for Emergency IV Catheter Type PICC Line Site Observation Patent Site Observation Intervention Inspected Line Dressing Applied Window Dressing Transparent Dressing Chlorhexidine Gluconate Impregnated Disc Dry/Intact Line Care Saline Flush P-Locked Labs drawn from Line* Yes Document 06/06/16 01:02 CBT (Rec: 06/06/16 01:03 CBT [id number]) IV/Invasive Line Assessment Right Upper Arm Reason for Line Insertion/Rationale for Replace Lost Fluids Insertion Provide Access for IV Medication(s) Provide Access for Emergency IV Catheter Type PICC Line Site Observation Patent Site Observation Intervention Inspected Line Dressing Applied Window Dressing Transparent Dressing Chlorhexidine Gluconate Impregnated Disc Dry/Intact Line Care Saline Flush P-Locked Labs drawn from Line* No Document 06/06/16 01:45 WDT (Rec: 06/06/16 03:04 WDT [id number]) IV/Invasive Line Assessment Right Upper Arm Reason for Line Insertion/Rationale for Replace Lost Fluids Insertion Provide Access for IV Medication(s) Provide Access for Emergency IV Catheter Type PICC Line Site Observation Patent Site Observation Intervention Inspected Line Dressing Applied Window Dressing Transparent Dressing Chlorhexidine Gluconate Impregnated Disc Dry/Intact Line Care Saline Flush Labs drawn from Line* No Document 06/06/16 09:00 [id number] (Rec: 06/06/16 09:20 [id number]) IV/Invasive Line Assessment Right Upper Arm Reason for Line Insertion/Rationale for Replace Lost Fluids Insertion Provide Access for IV Medication(s) Provide Access for Emergency IV Catheter Type PICC Line Site Observation Patent Site Observation Intervention Inspected Line Dressing Applied Window Dressing Transparent Dressing Chlorhexidine Gluconate Impregnated Disc Dry/Intact Line Care Saline Flush Labs drawn from Line* No Document 06/06/16 12:35 [id number] (Rec: 06/06/16 12:36 [id number]) IV/Invasive Line Assessment Right Upper Arm Reason for Line Insertion/Rationale for Replace Lost Fluids Insertion Provide Access for IV Medication(s) Provide Access for Emergency IV Catheter Type PICC Line Site Observation Patent Site Observation Intervention Inspected Line Dressing Applied Window Dressing Transparent Dressing Chlorhexidine Gluconate Impregnated Disc Dry/Intact Line Care Saline Flush Labs drawn from Line* No Intake and Output, Strict Start: 06/03/16 02: 49 Freq: Status: Discharge Document 06/03/16 17:19 [id number] (Rec: 06/03/16 17:19 [id number]) Intake and Output Number of Bowel Movement Diapers (0-100) 1 Document 06/04/16 04:06 TMM (Rec: 06/04/16 04:12 TMM [id number]) Intake and Output Number of Urine Diapers 4 Urine Color Straw Number of Bowel Movement Diapers (0-100) 2 Stool Size Moderate Stool Consistency soft Stool Color Brown Document 06/04/16 10:22 DAM (Rec: 06/04/16 10:22 DAM [id number]) Intake and Output Intake, Oral Amount 360 Meal Breakfast Percent of Meal Consumed 100% Oral Supplements* None Document 06/04/16 13:24 DAM (Rec: 06/04/16 13:24 DAM [id number]) Intake and Output Intake, Oral Amount 120 Meal Lunch Percent of Meal Consumed 100% Oral Supplements* None Document 06/04/16 14:35 [id number] (Rec: 06/04/16 14:35 [id number]) Intake and Output Number of Urine Diapers 1 Number of Bowel Movement Diapers (0-100) 1 Measure intake and output Start: 06/03/16 00: 31 Freq: QSHIFT Status: Discharge Document 06/03/16 04:13 [id number] (Rec: 06/03/16 04:13 [id number] [place] [id number]) Intake and Output Number of Urine Diapers 1 Urine Color Dark Yellow Document 06/03/16 06:43 [id number] (Rec: 06/03/16 06:43 [id number]) Intake and Output Number of Urine Diapers 1 Document 06/03/16 15:14 [id number] (Rec: 06/03/16 15:15 [id number]) Intake and Output Number of Bowel Movement Diapers (0-100) 1 Document 06/04/16 09:09 TMR (Rec: 06/04/16 09:09 TMR [id number]) Intake and Output Intake, Oral Amount 40 Document 06/04/16 10:17 [id number] (Rec: 06/04/16 10:17 [id number]) Intake and Output Number of Urine Diapers 1 Number of Bowel Movement Diapers (0-100) 1 Document 06/04/16 16:29 [id number] (Rec: 06/04/16 16:29 [id number]) Intake and Output Number of Urine Diapers 1 Number of Bowel Movement Diapers (0-100) 1 Document 06/04/16 18:54 SRV (Rec: 06/04/16 18:54 SRV [id number]) Intake and Output Intake, Oral Amount 240 Meal Dinner Percent of Meal Consumed 100% Oral Supplements* None Document 06/04/16 20:00 KJC (Rec: 06/05/16 01:14 KJC [id number]) Intake and Output Number of Urine Diapers 1 Number of Bowel Movement Diapers (0-100) 1 Document 06/05/16 03:29 [id number] (Rec: 06/05/16 03:29 [id number]) Intake and Output Number of Urine Diapers 3 Urine Color Dark Yellow Document 06/05/16 11:19 EAV (Rec: 06/05/16 11:20 EAV [id number]) Intake and Output Number of Bowel Movement Diapers (0-100) 1 Number of Bowel Movements 2 Stool Size Moderate Stool Consistency loose Stool Characteristics Foamy Stool Color Black Document 06/05/16 18:35 KW (Rec: 06/05/16 18:36 KW [id number]) Intake and Output Intake, Oral Amount 240 Meal Dinner Percent of Meal Consumed 100% Oral Supplements* None Number of Urine Diapers 1 Document 06/05/16 22:44 KW (Rec: 06/05/16 22:44 KW [id number]) Intake and Output Number of Urine Diapers 1 Number of Bowel Movement Diapers (0-100) 1 Stool Size Small Stool Consistency liquid Stool Color Brown Document 06/06/16 07:40 JSB (Rec: 06/06/16 07:42 JSB [id number]) Intake and Output Intake, Oral Amount 0 Number of Urine Diapers 1 Stool Size Moderate Stool Consistency soft Stool Color Brown Document 06/06/16 09:22 JSB (Rec: 06/06/16 09:22 JSB [id number]) Intake and Output Intake, Oral Amount 350 Meal Breakfast Percent of Meal Consumed 100% Oral Supplements* None Document 06/06/16 10:00 JSB (Rec: 06/06/16 10:32 JSB [id number]) Intake and Output Intake, Oral Amount 360 Meal Coffee/ Milk Oral Supplements* None Number of Urine Diapers 1 Stool Size Moderate Stool Consistency soft Stool Color Brown Document 06/06/16 11:52 JSB (Rec: 06/06/16 11:53 JSB [id number]) Intake and Output Intake, Oral Amount 0 Number of Urine Diapers 0 Document 06/06/16 13:19 JSB (Rec: 06/06/16 13:19 JSB [id number]) Intake and Output Intake, Oral Amount 240 Meal Lunch Percent of Meal Consumed 100% Oral Supplements* None Document 06/06/16 14:37 JSB (Rec: 06/06/16 14:38 JSB [id number]) Intake and Output Number of Urine Diapers 1 Stool Size Small Stool Consistency soft Stool Color Brown Measure weight Start: 06/03/16 00: 31 Freq: DAILY Status: Discharge Document 06/04/16 04:06 TMM (Rec: 06/04/16 04:12 TMM [id number]) Height and Weight Weight 102.194 kg Weight Measurement Method Built in [facility] Document 06/06/16 03:35 [id number] (Rec: 06/06/16 03:37 [id number]) Height and Weight Height 1.47 m Weight 102.31 kg Weight Measurement Method Built in [facility] Body Mass Index (BMI) 47.31 BMI Classification Extreme Obesity Obesity Class III Med Rec Tech Start: 06/03/16 12: 29 Freq: Status: Discharge Document 06/03/16 12:29 MRB (Rec: 06/03/16 12:30 MRB [id number]) Pharmacy Med Rec Tech Home Medicatons Reconciled? Yes Was this to catch up from previous day Yes Does patient take 10 or more medications Yes ? Does patient request medication Yes education Do home meds include Coumadin, Xarelto, No Pradaxa, Eliquis Added Patient Preferred Pharmacy No Verified Allergies No Would Patient Like to use [facility] Patient Pharmacy 06/03/16 12:29 Pharmacy Note by Lyly Parks All medications obtained from discharge med list on 06/02/16- Patient was re- admitted in less than 24 hrs- Initialized on 06/03/16 12:29 - END OF NOTE OT Acute Daily Note Start: 06/05/16 16: 22 Freq: Status: Discharge Document 06/06/16 12:07 KMT (Rec: 06/06/16 12:09 KMT [id number]) General/Subjective Date of Admission 06/05/16 Referring Provider Tristen Pak OT Visit # 2 Diagnosis Osteomyelitis, unspecified OT Treatment Diagnosis Weakness Subjective patient agreeable. talking about favorite show "[employer] is [employer]" Restrictions/Precautions Cognition Impaired Bed/Chair Alarm Objective Exercise Comment supine yellow theraband x10 reps x5 exercises, needed at times Monse for achieving full ROM and attention to task; leaning to left in bed and resistive to repositioning Assessment/Plan Assessment fair tolerance Plan Continue per POC in collaboration with OTR Time Started 11:10 Time Ended 11:28 Total Treatment Time (Min) (min) 18 Charge Sheet Therapeutic Exercise 1 OT Charges/Documentation Finished? Yes OT Acute Eval Start: 06/05/16 16: 22 Freq: Status: Discharge Document 06/05/16 16:22 TNB (Rec: 06/05/16 16:57 TNB [id number]) Inpatient Rehab Intake Date of Admission 06/05/16 Chief Complaint dyspnea PMH/Surgical History Relevant to Rehab PMH: CHF, MRDD,venous stasis, B LE osteomylelitis, JOHN, obesity, severe deconditioning , behavioral disturbances Diagnosis Osteomyelitis, unspecified Reason for Referral/Orders Evaluate, develop and implement POC Restrictions/Precautions Cognition Impaired Bed/Chair Alarm History Provided By Patient Family Member Lives With: sister Type of Dwelling Single Family Home Current [facility] Bed Prior Level Of Function Independent up until previous hospital admission per pt's sister report . Prior Mobility Level Independent up until previous hospital admission per pt's sister report. Driving no pt's sister drives Patient/Family Goal Pt does not state goals, but pt's sister is open to rehab stay. Pulse Rate 99 Respiratory Rate 18 O2 Sat by Pulse Oximetry (95-100) 94 L Blood Pressure 149/98 Pain Assessment Pain Present Reports Pain Right Lower Extremity Scale Used did not rate 2/2 to decreased cognition Functional Mobility Assessment Bed Mobility Ability Maximum Assistance 2 Person Assist Static Sitting Balance Ability Poor Dynamic Sitting Balance Ability Poor Additional Information Pt only agreeable to bed mobility this date with multiple encouragement from sister. Pt adamantly declined sitting EOB or to stand this date with sister present. Based on Pt's current mobility in bed and sitting balance up in bed (lean to L noted throughout - unable to self correct) Recommend a radha lift to chair if Pt OOB. ADL Assessment Grooming Ability Moderate Assistance Upper Body Dressing Ability Total Assistance Lower Body Dressing Ability Total Assistance Washing/Drying Upper Body Ability Total Assistance Washing/Drying Lower Extremities Ability Total Assistance Eating (Feeding) Ability Setup Performing Toilet Hygiene Ability Total Assistance Managing Clothing Ability Total Assistance Activity Tolerance Poor ADL's Sister reports that Pt is continent at home but Pt has not been continent during acute stay. Notifies RN after bowel movement or urination has occurred that he needs cleaned up. 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 Edema/Skin Integrity Comment intact; LE wounds Gross Sensorimotor Gross Sensation No Deficit Noted Gross Coordination RUE Impaired LUE Impaired Fine Motor Coordination RUE Impaired LUE Impaired Cognition/Visual Assessment Level of Alertness Alert Active Patient Orientation Person Name Mental Status Alert & Oriented Safety Awareness Patient Is Unaware of Safety Issues Visual Acuity No Deficits Noted Hearing Ability Normal Ability to Follow Directions Follows One Step Comprehension Ability Severe Impairment Patient Behavior Appropriate Cooperative Speech Pattern Unclear Eye Contact Maintains Eye Contact Problem Solving Ability Unable To Solve Simple Problems Unable To Solve Complex Problems Rehab Education Education Topic Gait Teaching Recipient Patient Teaching Method Verbal Response to Teaching Reinforcement needed Acute OT POC Is patient being assessed for No rehabilitation for diagnosis of stroke? AM-PAC OT Inpatient Daily Activity Raw 8 Score AM-PAC CMS 0-100% Impaired Score 85 Problems/Impairments/Functional Decreased Functional Endurance Limitation Decreased ADL's/IADL's Decreased Safety/Judgement/ Cognition Decreased Functional Mobility/ Transfers Decreased Standing Tolerance Needs AE/Compensatory Education Feeding Skills Balance Impaired Gait Decreased ROM Decreased Functional Reach Decreased Strength Impaired Coordination Assessment Pt demo'ed the above areas of OT concern during acute OT eval. Pt can benefit from skilled OT services to increase functional (I) during aucte stay. Based on current performance, highly recommend Pt d/c to SNF or LTAC facility . Rehab Potential Fair Disposition at end of Eval/Treatment In bed Lines intact RN/[employer] INST[employer]ER informed Call light/phone within reach Tray table within reach All needs met OT Treatment Diagnosis Weakness Planned OT Interventions Therapeutic Exercise Therapeutic Activity Self Care/Home Management OT Evaluation Re-Evaluation OT Treatment Frequency 3x/wk Estimated OT Needs at Discharge SNF/ECF OT Estimated DME Needs at D/C Front Wheeled Walker Bedside Commode (3 in 1) Shower Chair Grab Bars in Shower Patient will participate in ADLs of Moderate Assistance various media (dressing,bathing) with___ __ to improve ADL I/participation by hospital discharge. Patient will improve functional outcome AM-PAC 6 CLICKS score on by noted improvement of score (increase or decrease as measured on tool by 2 points) within short term hospitalization stay. Patient will improve strength by 1 Bilateral UE /2 grade to improve ADL participation & independence by short term hospial stay. Patient will complete of paced 5-10 min with rest breaks therapeutic exercise to improve functional stamina as needed for daily routine & ADLs by hosptial discharge. Patient will complete bed mobility to Moderate Assistance improve functional mobility as needed for ADL participation with by hospital discharge. Patient will sit EOB to improve static/ 3-5 minutes dynamic sitting balance for while engaging in functional tasks/activity in preparation for functional mobility required for ADLs by hospital discharge. Patient will verbally/demonstrate recall Walker Safety/Assistive Device of precautions in order to increase safety with ADLs & promote proper healing by discharge. Patient will receive education using____ Adaptive Equipment __ for compensatory strategies as needed for ADL I/participation by discharge from acute hospital stay. Supervising Therapist Gloria Fajardo and Carline-Scotty Charges Evaluation Time: Minutes with Patient 40 Occupational Therapy Evaluation High Yes Complexity OT Charges/Documentation Finished? Yes Is patient being discharged from OT No today? Financial Class MCR Secondary Payer Y OT G-code Therapy Billing Start: 06/05/16 16: 22 Freq: Status: Discharge Document 06/05/16 16:58 TNB (Rec: 06/05/16 16:58 TNB [id number]) OT G-codes G-code Required For This Visit No OT Current Status Self Care OT Current Status Modifier At least 80% but less than 100 % impaired, limited or restricted OT Goal Status Self Care OT Goal Status Modifier At least 60% but less than 80% impaired, limited or restricted Observation Admission Assessment Start: 06/03/16 02: 49 Freq: .once Status: Discharge Document 06/03/16 15:14 BK (Rec: 06/03/16 15:22 BK [id number]) General Questions Admitted From Emergency Dept History Provided By Patient Family Member Emergency Contact Name unique " breezy" little Relationship to Patient guardian Emergency Contact Patient Health Portal Patient was provided information on Yes accessing patient portal Patient Requests Portal Enrollment No Reason No Portal Enrollment Patient Declines Advance Directives Advance Directives No Advance Directives Information Provided Yes Patient Rights Copy of Rights Given and Verbalizes Yes Understanding Tobacco Free [place]: Copy of AHS Yes Statement Given and Patient Verbalizes Understanding Communication Ability Primary Language Marshallese Preferred Language Marshallese Cloth Laminating Supervisor Required No Ability to Follow Directions Needs Directions Repeated Able to Read Yes Able to Write Yes Communication Tools None Caregiver Communication Skills No Impairment Impairment Learning Preferences Written Discussion Hearing Ability Normal Visual Assistive Devices None Pain Assessment Do You Have Any Ongoing (Chronic) Pain No Problems Past Medical History Medical history CHF dementia GERD GI bleed myocardial infarction venous stasis other Male Surgical History cholecystectomy other Psychiatric history no psych history other Smoking Status Never smoker Smokeless Tobacco Status No Alcohol use none Drug use none Occupational status disabled Current living situation With Family Activity level Independent ambulation Mostly sedentary Recent Out of Country Travel Within the No Last 8 Weeks Exposure or Possible Exposure to Illness No During Travel Functional Assessment Eating (Feeding) Ability Independent Bathing Ability 2 Person Assist Upper Body Dressing Ability Moderate Assistance Lower Body Dressing Ability Maximum Assistance Ambulation Ability Total Assistance Toileting Ability Maximum Assistance Bladder Incontinent Bowel Incontinent Normal Bowel Pattern Daily Date of Last Known Bowel Movement 06/03/16 Psychosocial Over Age 75 and Lives Alone or Over Age No 80 Potential Need for Follow-up Care (ECF, Yes Home Health, ECT) Developmentally Disabled or History of Yes Mental Health Problems Responsible for Care of Others No Financial Concerns No Suspected Abuse or Neglect No Oxygen administration Start: 06/03/16 02: 49 Freq: Q12H Status: Discharge Document 06/03/16 01:45 BMD (Rec: 06/03/16 03:19 BMD [id number]) Oxygen O2 Sat by Pulse Oximetry (95-100) 98 Oxygen Delivery Method Nasal Cannula Oxygen Flow Rate (LPM) 3 Document 06/03/16 09:18 BKG (Rec: 06/03/16 09:33 BKG [id number]) Oxygen O2 Sat by Pulse Oximetry (95-100) 94 L Oxygen Delivery Method Nasal Cannula Oxygen Flow Rate (LPM) 3 Document 06/03/16 19:00 ARH (Rec: 06/03/16 20:26 ARH [id number]) Oxygen Oxygen Delivery Method Nasal Cannula Oxygen Flow Rate (LPM) 3 FIO2 (%) 32 Document 06/04/16 09:10 TMR (Rec: 06/04/16 09:10 TMR [id number]) Oxygen Oxygen Delivery Method Room Air Document 06/04/16 20:00 KJC (Rec: 06/05/16 01:14 KJC [id number]) Oxygen Oxygen Delivery Method Nasal Cannula Oxygen Flow Rate (LPM) 3 Document 06/05/16 07:51 AKC (Rec: 06/05/16 08:03 AKC [id number]) Oxygen Oxygen Delivery Method Nasal Cannula Oxygen Flow Rate (LPM) 3 Document 06/06/16 01:01 CBT (Rec: 06/06/16 01:02 CBT [id number]) Oxygen Oxygen S/U/Change No Heart rate 86 O2 Sat by Pulse Oximetry (95-100) 99 Oxygen Delivery Method Nasal Cannula Oxygen Flow Rate (LPM) 4 FIO2 (%) 36 Comment Pt refuses bipap Document 06/06/16 09:00 [id number] (Rec: 06/06/16 09:20 [id number]) Oxygen Oxygen Delivery Method Nasal Cannula Oxygen Flow Rate (LPM) 4 PT Acute Daily Note. Start: 06/05/16 12: 57 Freq: Status: Discharge Document 06/06/16 12:52 ADH (Rec: 06/06/16 13:23 ADH [id number]) General/Subjective Date of Admission 06/05/16 Referring Provider Tristen Pak PT Visit # 2 Diagnosis Osteomyelitis, unspecified PT Treatment Diagnosis Weakness Subjective Pt was in supine this date agreeable to participate with therapist post encouragement. Per nursing pt is tenative D/C today to transfer to [facility]. Restrictions/Precautions Cognition Impaired Bed/Chair Alarm Objective General Exercise Trunk/Lower Extremity Gluteal Set Supine Hip Abduction/Adduction Unilateral Supine Heel Slides Regional Exercise Completed Bilateral Lower Extremity Exercise Type Active Assisted Range of Motion Active Range of Motion # Sets 2 Repetitions 10 Exercise Tolerance Poor Exercise Comment Pt was able to complete exercises with encouragement to fulfill each set to best ability. Pt had limited ROM with exercises but was able to improve his form with increased cueing. Rehab Education Education Topic Home Exercise Program Teaching Recipient Patient Teaching Method Verbal Response to Teaching Reinforcement needed Unable to comprehend Education Provided: Details Reviewed HEP with pt this morning but will need further follow up. Assessment and Plan Assessment Pt was able to complete this session with continued cues of encouragement. Pt showed limited ROM but was trying with instructions given and AAROM provided to continue gaining additional ROM. Disposition at end of Eval/Treatment In bed Bed Alarm Call light/phone within reach Tray table within reach All needs met Plan Continue to progress as tolerated. Time Started 09:43 Time Ended 10:00 Total Treatment Time (Min) (min) 17 Timed Code Treatment Minutes (min) 15 Estimated PT Needs at Discharge SNF/ECF Charge Sheet Therapeutic Exercise 1 PT Charges/Documentation Finished? Yes Is patient being discharged from PT No today? PT Acute Eval Start: 06/05/16 12: 57 Freq: Status: Discharge Document 06/05/16 15:21 JODEE (Rec: 06/05/16 15:37 [facility] [id number]) Inpatient Rehab Intake Date of Admission 06/05/16 Chief Complaint dyspnea PMH/Surgical History Relevant to Rehab PMH: CHF, MRDD,venous stasis, B LE osteomylelitis, JOHN, obesity, severe deconditioning , behavioral disturbances Diagnosis Osteomyelitis, unspecified Reason for Referral/Orders Evaluate, develop and implement POC Restrictions/Precautions Cognition Impaired Bed/Chair Alarm History Provided By Patient Family Member Lives With: sister Type of Dwelling Single Family Home Prior Level Of Function Independent per pt's sister report. Prior Mobility Level Independent per pt's sister report. Driving no pt's sister drives Patient/Family Goal Pt does not state goals, but pt's sister is open to rehab stay. Pain Assessment Pain Present Reports Pain Right Lower Extremity Scale Used does not rate pain at this time Functional Mobility Assessment Bed Mobility Ability Maximum Assistance 2 Person Assist Activity Tolerance Poor Additional Information Pt only agreeable to roll to R side. Pt declines all other functional mobility tasks due to pain in R LE. Gross Strength/ROM Gross LE Strength Other (See Detail) LE ROM/Strength Detail B LE ROM limited all major joints due to weakness and edema. <1/2 ROM present at each major joint B LE. Pt able to initiate movement at all major joints B LE, but completes < 1/2 ROM. Edema/Skin Integrity Comment B LE dressing intact Gross Sensorimotor Gross Sensation No Deficit Noted Cognition/Visual Assessment Level of Alertness Alert Patient Orientation Person Name Mental Status Alert & Oriented Safety Awareness Patient Is Unaware of Safety Issues Visual Acuity No Deficits Noted Hearing Ability Normal Ability to Follow Directions Follows One Step Patient Behavior Resistive to Care Speech Pattern Unclear Rehab Education Education Topic Gait Teaching Recipient Patient Teaching Method Verbal Response to Teaching Reinforcement needed Education Provided: Details pt also educated on importance of mobility for obtaining PLOF. Acute Care PT POC Is patient being assessed for No rehabilitation for diagnosis of stroke? AM-PAC PT Basic Mobility Raw Score 7 AM-PAC CMS 0-100% Impaired Score 93 Problems/Impairments/Functional Decreased Functional Endurance Limitation Decreased Safety/Judgement/ Cognition Decreased Functional Mobility/ Transfers Decreased Standing Tolerance Balance Impaired Gait Decreased ROM Decreased Strength Assessment Pt is appropriate for skilled rehab services. PT services are warranted in order to address impairments and functional limitations as stated below. Pt requires max encouragement from rehab team and his sister for participation. Even with encouragement, but decline attempt to complete all functional mobility tasks beyond rolling to R side. Pt will require continued skilled PT services at SNF at time of d/c in order to further facilitate return to PLOF. Rehab Potential Fair Disposition at end of Eval/Treatment In bed Lines intact Family in room Call light/phone within reach Tray table within reach All needs met PT Treatment Diagnosis Weakness Planned Interventions Therapeutic Exercise Therapeutic Activity Gait Training Neuromuscular Reeducation PT Treatment Frequency 3x/wk Goals Determined With Patient/Family Yes Estimated PT Needs at Discharge SNF/ECF Pt. will perform all bed mobility with__ Maximum Assistance ___to increase functional indendence. Pt. will perform all transfers with Maximum Assistance to increase safe functional mobility and independence. Pt. will demonstrate static/dynamic Fair balance during all functional activities allowing increased safety awareness. Pt. will participate in of 5 minutes continuous activity allowing increased endurance while completing ADLs improving quality of life. Pt. will verbally recall precautions Walker Safety/Assistive Device without cues for increased safety & compliance in discharge environment. Pt. will perform therapeutic exercise Verbal/Tactile Cues with to improve functional ROM, strength, and endurance during all functional activities. Supervising Therapist Lyndon Melgar Eval and Re-Eval Charges Evaluation Time: Minutes with Patient 25 Physical Therapy Evaluation High Yes Complexity PT Charges/Documentation Finished? Yes Is patient being discharged from PT No today? Financial Class MCR Secondary Payer Y PT G-code Therapy Billing Start: 06/05/16 12: 57 Freq: Status: Discharge Document 06/05/16 15:21 AGK (Rec: 06/05/16 15:37 AGK [id number]) PT G-codes G-code Required For This Visit No PT Current Status Mobility PT Current Status Modifier At least 80% but less than 100 % impaired, limited or restricted PT Goal Status Mobility PT Goal Status Modifer At least 80% but less than 100 % impaired, limited or restricted PT Missed Visit Start: 06/05/16 12: 57 Freq: Status: Discharge Document 06/05/16 12:58 AGK (Rec: 06/05/16 13:02 AGK [id number]) Missed Visit Missed Visit Reason Refused/Declined Comment PT evaluation attempted x2 this morning (10:45 and 11: 45am). Pt declined first attempted 2/2 needing to "get cleaned up". Pt out for testing at second attempt. Rehab team memebers spoke with pt's sister at second attempt . Pt's sister reports she will likely not be able to care for pt at home if he continues to require assistance of >1 person. She is open to pt d/c to rehab facility if he qualifies. Pt's sister is also agreeable to assist with encouraging patient to participate in rehab services. Patient Rounding Start: 06/03/16 02: 49 Freq: Q1H Status: Discharge Document 06/03/16 01:45 BMD (Rec: 06/03/16 03:19 BMD [id number]) Hourly Rounding Hourly Rounding Checked for Patient Positioning Patient Personal Items Placed Within Reach Checked Patient Pain Level Hourly Rounding Completed Yes Patient Awake Is family present? Yes Equipment in Use Specialty Bed Safety Call Light Within Reach Bed Position Low Bed Exit Alarm Fall Precautions Phone Within Reach Bed Brake On Side Rails Up X2 Are the Floors Free From Trip Hazards? Yes Is the Room Free From Clutter? Yes Turn and Postion Bedrest Yes Turn Q 2HR No Patient Position Back Document 06/03/16 06:15 BMD (Rec: 06/03/16 07:52 BMD [id number]) Hourly Rounding Hourly Rounding Checked for Patient Positioning Patient Helped to Bathroom or Assisted with Bedpan or Urinal Patient Personal Items Placed Within Reach Hourly Rounding Completed Yes Patient Awake Is family present? No Comment patient has no needs at this time. Equipment in Use Specialty Bed Safety Call Light Within Reach Bed Position Low Bed Exit Alarm Phone Within Reach Bed Brake On Side Rails Up X2 Are the Floors Free From Trip Hazards? Yes Is the Room Free From Clutter? Yes Turn and Postion Bedrest Yes Turn Q 2HR No Patient Position Back Document 06/03/16 06:42 [id number] (Rec: 06/03/16 06:42 [id number]) Hourly Rounding Hourly Rounding Checked for Patient Positioning Patient Helped to Bathroom or Assisted with Bedpan or Urinal Patient Personal Items Placed Within Reach Hourly Rounding Completed Yes Patient Awake Is family present? No Comment patient has no needs at this time. Safety Call Light Within Reach Bed Position Low Bed Exit Alarm Phone Within Reach Bed Brake On Side Rails Up X2 Are the Floors Free From Trip Hazards? Yes Is the Room Free From Clutter? Yes Document 06/03/16 09:18 BK (Rec: 06/03/16 09:33 [facility] [id number]) Hourly Rounding Hourly Rounding Checked for Patient Positioning Patient Helped to Bathroom or Assisted with Bedpan or Urinal Patient Personal Items Placed Within Reach Hourly Rounding Completed Yes Patient Awake Is family present? No Comment patient has no needs at this time. Equipment in Use Specialty Bed Safety Call Light Within Reach Bed Position Low Bed Exit Alarm Phone Within Reach Bed Brake On Side Rails Up X2 Are the Floors Free From Trip Hazards? Yes Is the Room Free From Clutter? Yes Turn and Postion Bedrest Yes Turn Q 2HR No Patient Position Back Document 06/03/16 11:00 BK (Rec: 06/03/16 17:57 [facility] [id number]) Hourly Rounding Hourly Rounding Checked for Patient Positioning Patient Personal Items Placed Within Reach Checked Patient Pain Level Hourly Rounding Completed Yes Patient Awake Comment patient has no needs at this time. Equipment in Use Specialty Bed Safety Call Light Within Reach Bed Position Low Phone Within Reach Bed Brake On Side Rails Up X2 Are the Floors Free From Trip Hazards? Yes Is the Room Free From Clutter? Yes Turn and Postion Bedrest Yes Turn Q 2HR No Patient Position Back Document 06/03/16 12:41 [id number] (Rec: 06/03/16 12:43 [id number]) Hourly Rounding Hourly Rounding Checked for Patient Positioning Patient Personal Items Placed Within Reach Hourly Rounding Completed Yes Patient Awake Is family present? No Comment patient has no needs at this time. Safety Call Light Within Reach Bed Position Low Phone Within Reach Bed Brake On Side Rails Up X2 Are the Floors Free From Trip Hazards? Yes Is the Room Free From Clutter? Yes Document 06/03/16 13:08 BKG (Rec: 06/03/16 13:09 BK [id number]) Hourly Rounding Hourly Rounding Checked for Patient Positioning Patient Personal Items Placed Within Reach Checked Patient Pain Level Hourly Rounding Completed Yes Patient Awake Is family present? No Comment patient has no needs at this time. Equipment in Use Specialty Bed Safety Call Light Within Reach Bed Position Low Phone Within Reach Bed Brake On Side Rails Up X2 Are the Floors Free From Trip Hazards? Yes Is the Room Free From Clutter? Yes Turn and Postion Bedrest Yes Turn Q 2HR No Patient Position Back Document 06/03/16 14:38 BKG (Rec: 06/03/16 14:38 BK [id number]) Hourly Rounding Hourly Rounding Checked for Patient Positioning Patient Personal Items Placed Within Reach Checked Patient Pain Level Hourly Rounding Completed Yes Patient Awake Is family present? No Comment patient has no needs at this time. Equipment in Use Specialty Bed Safety Call Light Within Reach Bed Position Low Phone Within Reach Bed Brake On Side Rails Up X2 Are the Floors Free From Trip Hazards? Yes Is the Room Free From Clutter? Yes Turn and Postion Bedrest Yes Turn Q 2HR No Patient Position Back Document 06/03/16 14:54 [id number] (Rec: 06/03/16 14:55 [id number]) Hourly Rounding Hourly Rounding Checked for Patient Positioning Patient Personal Items Placed Within Reach Hourly Rounding Completed Yes Patient Awake Comment patient has no needs at this time. Safety Call Light Within Reach Bed Position Low Phone Within Reach Bed Brake On Side Rails Up X2 Are the Floors Free From Trip Hazards? Yes Is the Room Free From Clutter? Yes Document 06/03/16 17:58 BKG (Rec: 06/03/16 17:58 [id number] Hourly Rounding Hourly Rounding Checked for Patient Positioning Patient Personal Items Placed Within Reach Checked Patient Pain Level Hourly Rounding Completed Yes Patient Awake Is family present? No Comment patient has no needs at this time. Equipment in Use Specialty Bed Safety Call Light Within Reach Bed Position Low Phone Within Reach Bed Brake On Side Rails Up X2 Are the Floors Free From Trip Hazards? Yes Is the Room Free From Clutter? Yes Turn and Postion Bedrest Yes Turn Q 2HR No Patient Position Back Document 06/03/16 19:00 [facility] (Rec: 06/03/16 20:26 [facility] [id number]) Hourly Rounding Hourly Rounding Checked for Patient Positioning Patient Personal Items Placed Within Reach Checked Patient Pain Level Hourly Rounding Completed Yes Patient Awake Is family present? No Equipment in Use Specialty Bed Safety Call Light Within Reach Bed Position Low Phone Within Reach Bed Brake On Side Rails Up X2 Are the Floors Free From Trip Hazards? Yes Is the Room Free From Clutter? Yes Turn and Postion Bedrest Yes Turn Q 2HR No Patient Position Back Document 06/03/16 20:28 O (Rec: 06/03/16 20:28 [id number] Hourly Rounding Hourly Rounding Checked for Patient Positioning Patient Personal Items Placed Within Reach Hourly Rounding Completed Yes Patient Awake Is family present? No Safety Call Light Within Reach Bed Position Low Phone Within Reach Bed Brake On Side Rails Up X2 Are the Floors Free From Trip Hazards? Yes Is the Room Free From Clutter? Yes Turn and Postion Bedrest No Turn Q 2HR No Document 06/03/16 21:14 ARH (Rec: 06/03/16 21:14 [facility] [id number]) Hourly Rounding Hourly Rounding Checked for Patient Positioning Patient Personal Items Placed Within Reach Hourly Rounding Completed Yes Patient Awake Is family present? No Equipment in Use Specialty Bed Safety Call Light Within Reach Bed Position Low Phone Within Reach Bed Brake On Side Rails Up X2 Are the Floors Free From Trip Hazards? Yes Is the Room Free From Clutter? Yes Turn and Postion Bedrest No Turn Q 2HR No Document 06/03/16 22:30 ARH (Rec: 06/04/16 01:21 [facility] [id number]) Hourly Rounding Hourly Rounding Checked for Patient Positioning Patient Personal Items Placed Within Reach Checked Patient Pain Level Hourly Rounding Completed Yes Patient Awake Is family present? No Safety Call Light Within Reach Bed Position Low Phone Within Reach Bed Brake On Side Rails Up X2 Are the Floors Free From Trip Hazards? Yes Is the Room Free From Clutter? Yes Turn and Postion Bedrest No Turn Q 2HR No Patient Position Back Document 06/03/16 22:35 ARH (Rec: 06/03/16 22:35 ARH [id number]) Hourly Rounding Hourly Rounding Checked for Patient Positioning Patient Personal Items Placed Within Reach Hourly Rounding Completed Yes Patient Awake Is family present? No Equipment in Use Specialty Bed Safety Call Light Within Reach Bed Position Low Phone Within Reach Bed Brake On Side Rails Up X2 Are the Floors Free From Trip Hazards? Yes Is the Room Free From Clutter? Yes Turn and Postion Bedrest No Turn Q 2HR No Patient Position Back Document 06/04/16 02:46 ARH (Rec: 06/04/16 02:46 [facility] [id number]) Hourly Rounding Hourly Rounding Checked for Patient Positioning Patient Personal Items Placed Within Reach Hourly Rounding Completed Yes Patient Awake Is family present? No Equipment in Use Specialty Bed Safety Call Light Within Reach Bed Position Low Phone Within Reach Bed Brake On Side Rails Up X2 Are the Floors Free From Trip Hazards? Yes Is the Room Free From Clutter? Yes Turn and Postion Bedrest No Turn Q 2HR No Patient Position Back Document 06/04/16 03:46 ARH (Rec: 06/04/16 03:54 [facility] [id number]) Hourly Rounding Hourly Rounding Checked for Patient Positioning Patient Personal Items Placed Within Reach Checked Patient Pain Level Hourly Rounding Completed Yes Patient Awake Is family present? No Equipment in Use Specialty Bed Safety Call Light Within Reach Bed Position Low Phone Within Reach Bed Brake On Side Rails Up X2 Are the Floors Free From Trip Hazards? Yes Is the Room Free From Clutter? Yes Turn and Postion Bedrest No Turn Q 2HR No Patient Position Back Document 06/04/16 04:43 ARH (Rec: 06/04/16 04:43 [facility] [id number]) Hourly Rounding Hourly Rounding Checked for Patient Positioning Patient Personal Items Placed Within Reach Checked Patient Pain Level Hourly Rounding Completed Yes Patient Awake Is family present? No Equipment in Use Specialty Bed Safety Call Light Within Reach Bed Position Low Phone Within Reach Bed Brake On Side Rails Up X2 Are the Floors Free From Trip Hazards? Yes Is the Room Free From Clutter? Yes Turn and Postion Bedrest No Turn Q 2HR No Patient Position Back Document 06/04/16 06:22 ARH (Rec: 06/04/16 06:23 [facility] [id number]) Hourly Rounding Hourly Rounding Checked for Patient Positioning Patient Personal Items Placed Within Reach Checked Patient Pain Level Hourly Rounding Completed Yes Patient Awake Is family present? No Equipment in Use Specialty Bed Safety Call Light Within Reach Bed Position Low Phone Within Reach Bed Brake On Side Rails Up X2 Are the Floors Free From Trip Hazards? Yes Is the Room Free From Clutter? Yes Turn and Postion Bedrest No Turn Q 2HR No Patient Position Back Document 06/04/16 09:10 TMR (Rec: 06/04/16 09:10 TMR [facility]) Hourly Rounding Hourly Rounding Checked for Patient Positioning Patient Personal Items Placed Within Reach Checked Patient Pain Level Hourly Rounding Completed Yes Patient Awake Is family present? No Equipment in Use Specialty Bed Safety Call Light Within Reach Bed Position Low Phone Within Reach Bed Brake On Side Rails Up X2 Are the Floors Free From Trip Hazards? Yes Is the Room Free From Clutter? Yes Turn and Postion Bedrest No Turn Q 2HR No Patient Position Back Document 06/04/16 10:17 [id number] (Rec: 06/04/16 10:17 [id number]) Hourly Rounding Hourly Rounding Checked for Patient Positioning Patient Personal Items Placed Within Reach Hourly Rounding Completed Yes Patient Awake Is family present? No Comment patient has no needs at this time. Safety Call Light Within Reach Bed Position Low Bed Exit Alarm Phone Within Reach Bed Brake On Side Rails Up X2 Document 06/04/16 10:56 TMR (Rec: 06/04/16 10:56 TMR [facility]) Hourly Rounding Hourly Rounding Checked for Patient Positioning Patient Personal Items Placed Within Reach Checked Patient Pain Level Hourly Rounding Completed Yes Patient Awake Is family present? No Comment patient has no needs at this time. Equipment in Use Specialty Bed Safety Call Light Within Reach Bed Position Low Bed Exit Alarm Phone Within Reach Bed Brake On Side Rails Up X2 Turn and Postion Bedrest No Turn Q 2HR No Patient Position Back Document 06/04/16 12:46 [id number] (Rec: 06/04/16 12:47 [id number]) Hourly Rounding Hourly Rounding Checked for Patient Positioning Patient Personal Items Placed Within Reach Hourly Rounding Completed Yes Patient Awake Comment patient has no needs at this time. Safety Call Light Within Reach Bed Position Low Phone Within Reach Bed Brake On Side Rails Up X2 Are the Floors Free From Trip Hazards? Yes Is the Room Free From Clutter? Yes Document 06/04/16 13:20 TMR (Rec: 06/04/16 13:20 TMR [id number]) Hourly Rounding Hourly Rounding Checked for Patient Positioning Patient Personal Items Placed Within Reach Checked Patient Pain Level Hourly Rounding Completed Yes Patient Awake Is family present? No Comment patient has no needs at this time. Equipment in Use Specialty Bed Safety Call Light Within Reach Bed Position Low Bed Exit Alarm Fall Precautions Phone Within Reach Bed Brake On Side Rails Up X2 Are the Floors Free From Trip Hazards? Yes Is the Room Free From Clutter? Yes Turn and Postion Bedrest No Turn Q 2HR No Patient Position Back Document 06/04/16 14:35 [id number] (Rec: 06/04/16 14:35 [id number]) Hourly Rounding Hourly Rounding Checked for Patient Positioning Patient Personal Items Placed Within Reach Hourly Rounding Completed Yes Patient Awake Is family present? No Comment Patient has no needs at this time. Safety Call Light Within Reach Bed Position Low Phone Within Reach Bed Brake On Side Rails Up X2 Are the Floors Free From Trip Hazards? Yes Is the Room Free From Clutter? Yes Document 06/04/16 15:00 TMR (Rec: 06/04/16 16:21 TMR [id number]) Hourly Rounding Hourly Rounding Checked for Patient Positioning Patient Personal Items Placed Within Reach Checked Patient Pain Level Hourly Rounding Completed Yes Patient Awake Is family present? No Comment Patient has no needs at this time. Equipment in Use Specialty Bed Safety Call Light Within Reach Bed Position Low Phone Within Reach Bed Brake On Side Rails Up X2 Are the Floors Free From Trip Hazards? Yes Is the Room Free From Clutter? Yes Turn and Postion Bedrest No Turn Q 2HR No Patient Position Back Document 06/04/16 16:23 TMR (Rec: 06/04/16 16:44 TMR [id number]) Hourly Rounding Hourly Rounding Checked for Patient Positioning Patient Personal Items Placed Within Reach Checked Patient Pain Level Hourly Rounding Completed Yes Patient Awake Is family present? No Comment Patient has no needs at this time. Equipment in Use Specialty Bed Safety Call Light Within Reach Bed Position Low Phone Within Reach Bed Brake On Side Rails Up X2 Are the Floors Free From Trip Hazards? Yes Is the Room Free From Clutter? Yes Turn and Postion Bedrest No Turn Q 2HR No Patient Position Back Document 06/04/16 17:12 TMR (Rec: 06/04/16 17:12 TMR [id number]) Hourly Rounding Hourly Rounding Checked for Patient Positioning Patient Personal Items Placed Within Reach Checked Patient Pain Level Hourly Rounding Completed Yes Patient Awake Is family present? Yes Comment Patient has no needs at this time. Equipment in Use Specialty Bed Safety Call Light Within Reach Bed Position Low Phone Within Reach Bed Brake On Side Rails Up X2 Are the Floors Free From Trip Hazards? Yes Is the Room Free From Clutter? Yes Turn and Postion Bedrest No Turn Q 2HR No Patient Position Back Document 06/04/16 20:14 KJC (Rec: 06/04/16 20:14 KJC [id number]) Hourly Rounding Hourly Rounding Checked for Patient Positioning Patient Personal Items Placed Within Reach Checked Patient Pain Level Hourly Rounding Completed Yes Patient Awake Is family present? Yes Safety Call Light Within Reach Bed Position Low Phone Within Reach Bed Brake On Side Rails Up X2 Are the Floors Free From Trip Hazards? Yes Is the Room Free From Clutter? Yes Turn and Postion Bedrest No Turn Q 2HR No Document 06/05/16 01:14 KJC (Rec: 06/05/16 01:14 KJC [id number]) Hourly Rounding Hourly Rounding Checked for Patient Positioning Patient Personal Items Placed Within Reach Hourly Rounding Completed Yes Patient Resting With Eyes Closed Is family present? Yes Safety Call Light Within Reach Bed Position Low Phone Within Reach Bed Brake On Side Rails Up X2 Are the Floors Free From Trip Hazards? Yes Is the Room Free From Clutter? Yes Turn and Postion Bedrest No Turn Q 2HR No Document 06/05/16 04:15 KJC (Rec: 06/05/16 04:16 KJC [id number]) Hourly Rounding Hourly Rounding Checked for Patient Positioning Patient Personal Items Placed Within Reach Hourly Rounding Completed Yes Patient Resting With Eyes Closed Is family present? Yes Safety Call Light Within Reach Bed Position Low Phone Within Reach Bed Brake On Side Rails Up X2 Are the Floors Free From Trip Hazards? Yes Is the Room Free From Clutter? Yes Turn and Postion Bedrest No Turn Q 2HR No Document 06/05/16 06:49 KJC (Rec: 06/05/16 06:49 KJC [id number]) Hourly Rounding Hourly Rounding Checked for Patient Positioning Patient Personal Items Placed Within Reach Hourly Rounding Completed Yes Patient Resting With Eyes Closed Is family present? Yes Safety Call Light Within Reach Bed Position Low Phone Within Reach Bed Brake On Side Rails Up X2 Are the Floors Free From Trip Hazards? Yes Is the Room Free From Clutter? Yes Turn and Postion Bedrest No Turn Q 2HR No Document 06/05/16 06:54 EAV (Rec: 06/05/16 06:55 EAV [id number]) Hourly Rounding Hourly Rounding Checked for Patient Positioning Patient Personal Items Placed Within Reach Hourly Rounding Completed Yes Patient Resting With Eyes Closed Is family present? Yes Equipment in Use Specialty Bed Safety Call Light Within Reach Bed Position Low Phone Within Reach Bed Brake On Side Rails Up X2 Are the Floors Free From Trip Hazards? Yes Is the Room Free From Clutter? Yes Turn and Postion Bedrest No Turn Q 2HR No Document 06/05/16 07:51 [facility] (Rec: 06/05/16 08:03 [facility] [id number]) Hourly Rounding Hourly Rounding Checked for Patient Positioning Patient Personal Items Placed Within Reach Checked Patient Pain Level Hourly Rounding Completed Yes Patient Awake Is family present? No Equipment in Use Specialty Bed Safety Call Light Within Reach Bed Position Low Fall Precautions Phone Within Reach Bed Brake On Side Rails Up X2 Are the Floors Free From Trip Hazards? Yes Is the Room Free From Clutter? Yes Turn and Postion Bedrest No Turn Q 2HR No Patient Position Back Document 06/05/16 08:00 [facility] (Rec: 06/05/16 08:05 [facility] [id number]) Hourly Rounding Hourly Rounding Checked for Patient Positioning Patient Personal Items Placed Within Reach Checked Patient Pain Level Hourly Rounding Completed Yes Patient Awake Is family present? No Equipment in Use Specialty Bed Safety Call Light Within Reach Bed Position Low Fall Precautions Phone Within Reach Bed Brake On Side Rails Up X2 Are the Floors Free From Trip Hazards? Yes Is the Room Free From Clutter? Yes Turn and Postion Bedrest No Turn Q 2HR No Patient Position Back Document 06/05/16 08:44 EAV (Rec: 06/05/16 08:44 EAV [id number]) Hourly Rounding Hourly Rounding Checked for Patient Positioning Patient Personal Items Placed Within Reach Checked Patient Pain Level Hourly Rounding Completed Yes Patient Awake Is family present? No Equipment in Use Specialty Bed Safety Call Light Within Reach Bed Position Low Fall Precautions Phone Within Reach Bed Brake On Side Rails Up X2 Are the Floors Free From Trip Hazards? Yes Is the Room Free From Clutter? Yes Turn and Postion Bedrest No Turn Q 2HR No Patient Position Back Document 06/05/16 10:00 EAV (Rec: 06/05/16 11:40 EAV [id number]) Hourly Rounding Hourly Rounding Checked for Patient Positioning Patient Personal Items Placed Within Reach Checked Patient Pain Level Hourly Rounding Completed Yes Patient Awake Is family present? No Equipment in Use Specialty Bed Safety Call Light Within Reach Bed Position Low Fall Precautions Phone Within Reach Bed Brake On Side Rails Up X2 Are the Floors Free From Trip Hazards? Yes Is the Room Free From Clutter? Yes Turn and Postion Bedrest No Turn Q 2HR No Patient Position Back Document 06/05/16 12:32 [facility] (Rec: 06/05/16 13:01 [facility] [id number]) Hourly Rounding Hourly Rounding Checked for Patient Positioning Patient Personal Items Placed Within Reach Checked Patient Pain Level Hourly Rounding Completed Yes Patient Awake Is family present? Yes Equipment in Use Specialty Bed Safety Call Light Within Reach Bed Position Low Fall Precautions Phone Within Reach Bed Brake On Side Rails Up X2 Are the Floors Free From Trip Hazards? Yes Is the Room Free From Clutter? Yes Turn and Postion Bedrest No Turn Q 2HR No Patient Position Back Document 06/05/16 13:00 [facility] (Rec: 06/05/16 13:04 [facility] [id number]) Hourly Rounding Hourly Rounding Checked for Patient Positioning Patient Personal Items Placed Within Reach Checked Patient Pain Level Hourly Rounding Completed Yes Patient Awake Is family present? Yes Equipment in Use Specialty Bed Safety Call Light Within Reach Bed Position Low Fall Precautions Phone Within Reach Bed Brake On Side Rails Up X2 Are the Floors Free From Trip Hazards? Yes Is the Room Free From Clutter? Yes Turn and Postion Bedrest No Turn Q 2HR No Patient Position Back Document 06/05/16 15:27 [facility] (Rec: 06/05/16 15:37 [facility] [id number]) Hourly Rounding Hourly Rounding Checked for Patient Positioning Patient Personal Items Placed Within Reach Checked Patient Pain Level Hourly Rounding Completed Yes Patient Awake Is family present? Yes Equipment in Use Specialty Bed Safety Call Light Within Reach Bed Position Low Fall Precautions Phone Within Reach Bed Brake On Side Rails Up X2 Are the Floors Free From Trip Hazards? Yes Is the Room Free From Clutter? Yes Turn and Postion Bedrest No Turn Q 2HR No Patient Position Back Document 06/05/16 16:27 EAV (Rec: 06/05/16 16:27 EAV [id number]) Hourly Rounding Hourly Rounding Checked for Patient Positioning Patient Personal Items Placed Within Reach Checked Patient Pain Level Hourly Rounding Completed Yes Patient Awake Is family present? Yes Equipment in Use Specialty Bed Safety Call Light Within Reach Bed Position Low Bed Exit Alarm Fall Precautions Phone Within Reach Bed Brake On Side Rails Up X2 Are the Floors Free From Trip Hazards? Yes Is the Room Free From Clutter? Yes Turn and Postion Bedrest No Turn Q 2HR No Patient Position Back Document 06/05/16 17:00 [facility] (Rec: 06/05/16 17:59 [facility] [id number]) Hourly Rounding Hourly Rounding Checked for Patient Positioning Patient Personal Items Placed Within Reach Checked Patient Pain Level Hourly Rounding Completed Yes Patient Awake Is family present? Yes Equipment in Use Specialty Bed Safety Call Light Within Reach Bed Position Low Bed Exit Alarm Fall Precautions Phone Within Reach Bed Brake On Side Rails Up X2 Are the Floors Free From Trip Hazards? Yes Is the Room Free From Clutter? Yes Turn and Postion Bedrest No Turn Q 2HR No Patient Position Back Document 06/05/16 17:59 [facility] (Rec: 06/05/16 17:[id number]) Hourly Rounding Hourly Rounding Checked for Patient Positioning Patient Personal Items Placed Within Reach Checked Patient Pain Level Hourly Rounding Completed Yes Patient Awake Is family present? Yes Equipment in Use Specialty Bed Safety Call Light Within Reach Bed Position Low Bed Exit Alarm Fall Precautions Phone Within Reach Bed Brake On Side Rails Up X2 Are the Floors Free From Trip Hazards? Yes Is the Room Free From Clutter? Yes Turn and Postion Bedrest No Turn Q 2HR No Patient Position Back Document 06/05/16 18:35 KW (Rec: 06/05/16 18:35 KW [id number]) Hourly Rounding Hourly Rounding Checked for Patient Positioning Patient Personal Items Placed Within Reach Checked Patient Pain Level Hourly Rounding Completed Yes Patient Awake Is family present? Yes Equipment in Use Specialty Bed Safety Call Light Within Reach Bed Position Low Bed Exit Alarm Fall Precautions Phone Within Reach Bed Brake On Side Rails Up X2 Are the Floors Free From Trip Hazards? Yes Is the Room Free From Clutter? Yes Turn and Postion Bedrest No Turn Q 2HR No Patient Position Back Document 06/05/16 20:21 KW (Rec: 06/05/16 21:21 KW [id number]) Hourly Rounding Hourly Rounding Checked for Patient Positioning Patient Personal Items Placed Within Reach Checked Patient Pain Level Hourly Rounding Completed Yes Patient Awake Is family present? Yes Comment on phone Equipment in Use Specialty Bed Safety Call Light Within Reach Bed Position Low Bed Exit Alarm Fall Precautions Phone Within Reach Bed Brake On Side Rails Up X2 Are the Floors Free From Trip Hazards? Yes Is the Room Free From Clutter? Yes Turn and Postion Bedrest No Turn Q 2HR No Patient Position Back Document 06/05/16 21:52 NS (Rec: 06/05/16 21:53 NS [id number]) Hourly Rounding Hourly Rounding Patient Personal Items Placed Within Reach Hourly Rounding Completed Yes Patient Sleeping Is family present? No Equipment in Use Specialty Bed Safety Call Light Within Reach Bed Position Low Bed Exit Alarm Fall Precautions Phone Within Reach Bed Brake On Side Rails Up X2 Are the Floors Free From Trip Hazards? Yes Is the Room Free From Clutter? Yes Turn and Postion Bedrest No Turn Q 2HR No Patient Position Back Document 06/05/16 22:43 KW (Rec: 06/05/16 22:43 KW [id number]) Hourly Rounding Hourly Rounding Checked for Patient Positioning Patient Personal Items Placed Within Reach Hourly Rounding Completed Yes Patient Awake Is family present? No Equipment in Use Specialty Bed Safety Call Light Within Reach Bed Position Low Bed Exit Alarm Fall Precautions Phone Within Reach Bed Brake On Side Rails Up X2 Are the Floors Free From Trip Hazards? Yes Is the Room Free From Clutter? Yes Turn and Postion Bedrest No Turn Q 2HR No Patient Position Back Document 06/05/16 23:38 [id number] (Rec: 06/05/16 23:45 [id number]) Hourly Rounding Hourly Rounding Checked for Patient Positioning Patient Personal Items Placed Within Reach Hourly Rounding Completed Yes Patient Awake Is family present? No Safety Call Light Within Reach Bed Position Low Bed Exit Alarm Fall Precautions Phone Within Reach Bed Brake On Side Rails Up X1 Side Rails Up X2 Are the Floors Free From Trip Hazards? Yes Is the Room Free From Clutter? Yes Turn and Postion Bedrest Yes Turn Q 2HR No Patient Position Back Document 06/06/16 01:03 CBT (Rec: 06/06/16 01:24 CBT [id number]) Hourly Rounding Hourly Rounding Checked for Patient Positioning Patient Personal Items Placed Within Reach Hourly Rounding Completed Yes Patient Awake Is family present? No Equipment in Use Specialty Bed Safety Call Light Within Reach Bed Position Low Bed Exit Alarm Fall Precautions Phone Within Reach Bed Brake On Side Rails Up X1 Side Rails Up X2 Are the Floors Free From Trip Hazards? Yes Is the Room Free From Clutter? Yes Turn and Postion Bedrest Yes Turn Q 2HR No Patient Position Back Head of Bed Position (degrees) 45 Document 06/06/16 01:45 WDT (Rec: 06/06/16 03:04 WDT [id number]) Hourly Rounding Hourly Rounding Checked for Patient Positioning Patient Personal Items Placed Within Reach Checked Patient Pain Level Patient Awake Is family present? No Equipment in Use Specialty Bed Safety Call Light Within Reach Bed Position Low Bed Exit Alarm Fall Precautions Phone Within Reach Bed Brake On Side Rails Up X1 Side Rails Up X2 Are the Floors Free From Trip Hazards? Yes Is the Room Free From Clutter? Yes Turn and Postion Bedrest Yes Turn Q 2HR No Patient Position Back Head of Bed Position (degrees) 45 Document 06/06/16 02:15 WDT (Rec: 06/06/16 04:31 WDT [id number]) Hourly Rounding Hourly Rounding Checked for Patient Positioning Patient Personal Items Placed Within Reach Hourly Rounding Completed Yes Patient Awake Is family present? No Equipment in Use Specialty Bed Safety Call Light Within Reach Bed Position Low Bed Exit Alarm Fall Precautions Phone Within Reach Bed Brake On Side Rails Up X1 Side Rails Up X2 Are the Floors Free From Trip Hazards? Yes Is the Room Free From Clutter? Yes Turn and Postion Bedrest No Turn Q 2HR No Patient Position Back Head of Bed Position (degrees) 45 Document 06/06/16 03:35 [id number] (Rec: 06/06/16 03:37 [id number]) Hourly Rounding Hourly Rounding Checked for Patient Positioning Patient Personal Items Placed Within Reach Hourly Rounding Completed Yes Patient Awake Is family present? No Safety Call Light Within Reach Bed Position Low Bed Exit Alarm Fall Precautions Phone Within Reach Bed Brake On Side Rails Up X1 Side Rails Up X2 Are the Floors Free From Trip Hazards? Yes Is the Room Free From Clutter? Yes Turn and Postion Bedrest No Turn Q 2HR No Patient Position Back Document 06/06/16 03:50 WDT (Rec: 06/06/16 04:32 T [id number]) Hourly Rounding Hourly Rounding Checked for Patient Positioning Patient Personal Items Placed Within Reach Checked Patient Pain Level Hourly Rounding Completed Yes Patient Awake Is family present? No Equipment in Use Specialty Bed Safety Call Light Within Reach Bed Position Low Bed Exit Alarm Fall Precautions Phone Within Reach Bed Brake On Side Rails Up X1 Side Rails Up X2 Are the Floors Free From Trip Hazards? Yes Is the Room Free From Clutter? Yes Turn and Postion Bedrest No Turn Q 2HR No Patient Position Back Head of Bed Position (degrees) 45 Document 06/06/16 04:50 WDT (Rec: 06/06/16 04:53 T [id number]) Hourly Rounding Hourly Rounding Checked for Patient Positioning Patient Personal Items Placed Within Reach Checked Patient Pain Level Hourly Rounding Completed Yes Patient Awake Is family present? No Equipment in Use Specialty Bed Safety Call Light Within Reach Bed Position Low Bed Exit Alarm Fall Precautions Phone Within Reach Bed Brake On Side Rails Up X1 Side Rails Up X2 Are the Floors Free From Trip Hazards? Yes Is the Room Free From Clutter? Yes Turn and Postion Bedrest No Turn Q 2HR No Patient Position Back Head of Bed Position (degrees) 45 Document 06/06/16 06:00 WDT (Rec: 06/06/16 06:36 WDT [id number]) Hourly Rounding Hourly Rounding Checked for Patient Positioning Patient Personal Items Placed Within Reach Checked Patient Pain Level Hourly Rounding Completed Yes Patient Awake Is family present? No Equipment in Use Specialty Bed Safety Call Light Within Reach Bed Position Low Bed Exit Alarm Fall Precautions Phone Within Reach Bed Brake On Side Rails Up X1 Side Rails Up X2 Are the Floors Free From Trip Hazards? Yes Is the Room Free From Clutter? Yes Turn and Postion Bedrest No Turn Q 2HR No Patient Position Back Head of Bed Position (degrees) 45 Document 06/06/16 07:40 JOSE JUAN (Rec: 06/06/16 07:42 JSB [id number]) Hourly Rounding Hourly Rounding Checked for Patient Positioning Patient Personal Items Placed Within Reach Hourly Rounding Completed Yes Patient Awake Is family present? No Safety Call Light Within Reach Bed Position Low Bed Exit Alarm Fall Precautions Phone Within Reach Bed Brake On Side Rails Up X2 Are the Floors Free From Trip Hazards? Yes Is the Room Free From Clutter? Yes Turn and Postion Bedrest Yes Turn Q 2HR Yes Patient Position Sitting up in Bed Document 06/06/16 09:00 [id number] (Rec: 06/06/16 09:20 [id number]) Hourly Rounding Hourly Rounding Checked for Patient Positioning Patient Personal Items Placed Within Reach Checked Patient Pain Level Hourly Rounding Completed Yes Patient Awake Is family present? No Equipment in Use Specialty Bed Safety Call Light Within Reach Bed Position Low Bed Exit Alarm Fall Precautions Phone Within Reach Bed Brake On Side Rails Up X2 Are the Floors Free From Trip Hazards? Yes Is the Room Free From Clutter? Yes Turn and Postion Bedrest Yes Turn Q 2HR No Patient Position Sitting up in Bed Document 06/06/16 09:00 JOSE JUAN (Rec: 06/06/16 10:32 HAYDEEB [id number]) Hourly Rounding Hourly Rounding Checked for Patient Positioning Patient Personal Items Placed Within Reach Hourly Rounding Completed Yes Patient Awake Is family present? No Safety Call Light Within Reach Bed Position Low Bed Exit Alarm Fall Precautions Phone Within Reach Bed Brake On Side Rails Up X2 Are the Floors Free From Trip Hazards? Yes Is the Room Free From Clutter? Yes Turn and Postion Bedrest Yes Turn Q 2HR No Patient Position Sitting up in Bed Document 06/06/16 11:52 JOSE JUAN (Rec: 06/06/16 11:53 HAYDEEB [id number]) Hourly Rounding Hourly Rounding Checked for Patient Positioning Patient Personal Items Placed Within Reach Hourly Rounding Completed Yes Patient Awake Is family present? Yes Safety Call Light Within Reach Bed Position Low Bed Exit Alarm Fall Precautions Phone Within Reach Bed Brake On Side Rails Up X2 Are the Floors Free From Trip Hazards? Yes Is the Room Free From Clutter? Yes Turn and Postion Bedrest Yes Turn Q 2HR No Patient Position Sitting up in Bed Document 06/06/16 12:35 [id number] (Rec: 06/06/16 12:36 [id number]) Hourly Rounding Hourly Rounding Checked for Patient Positioning Patient Personal Items Placed Within Reach Hourly Rounding Completed Yes Patient Awake Is family present? Yes Equipment in Use Specialty Bed Safety Call Light Within Reach Bed Position Low Bed Exit Alarm Fall Precautions Phone Within Reach Bed Brake On Side Rails Up X2 Are the Floors Free From Trip Hazards? Yes Is the Room Free From Clutter? Yes Turn and Postion Bedrest Yes Turn Q 2HR No Patient Position Sitting up in Bed Document 06/06/16 14:37 JSB (Rec: 06/06/16 14:38 JSB [id number]) Hourly Rounding Hourly Rounding Checked for Patient Positioning Patient Personal Items Placed Within Reach Hourly Rounding Completed Yes Patient Awake Is family present? No Safety Call Light Within Reach Bed Position Low Bed Exit Alarm Fall Precautions Phone Within Reach Bed Brake On Side Rails Up X2 Are the Floors Free From Trip Hazards? Yes Is the Room Free From Clutter? Yes Turn and Postion Bedrest Yes Turn Q 2HR No Patient Position Sitting up in Bed Document 06/06/16 15:00 JSB (Rec: 06/06/16 15:33 JSB [id number]) Hourly Rounding Hourly Rounding Checked for Patient Positioning Patient Personal Items Placed Within Reach Hourly Rounding Completed Yes Patient Awake Is family present? No Safety Call Light Within Reach Bed Position Low Bed Exit Alarm Fall Precautions Phone Within Reach Bed Brake On Side Rails Up X2 Are the Floors Free From Trip Hazards? Yes Is the Room Free From Clutter? Yes Turn and Postion Bedrest Yes Turn Q 2HR No Patient Position Sitting up in Bed 06/06/16 15:32 Nurse Note by Harris Mcnulty S Patient refuses to be put on his side, explained the importance of turning but, still refuses. Initialized on 06/06/16 15:32 - END OF NOTE Peripheral venous cannula mgmt/flush Start: 06/03/16 00: 30 Freq: CONT Status: Complete Document 06/03/16 09:18 BENJAMIN (Rec: 06/03/16 09:33 BENJAMIN [id number]) Document 06/04/16 09:11 TMR (Rec: 06/04/16 09:11 TMR [id number]) RT Continuous Pulse Oximetry Start: 06/03/16 00: 31 Freq: CONT Status: Discharge Document 06/05/16 00:54 SMS (Rec: 06/05/16 00:55 SMS [id number]) Pulse Oximetry Pulse Oximetry * BIPAP Qualification* Oxygen Delivery Method Nasal Cannula Oxygen Flow Rate (LPM) 3 RT Note Start: 06/04/16 05: 04 Freq: Status: Discharge Document 06/03/16 22:00 PJS (Rec: 06/04/16 05:06 PJS [id number]) RT Note RT Notes Pt refused to have his overnight study. Document 06/06/16 00:32 SMS (Rec: 06/06/16 05:28 SMS [id number]) RT Note RT Notes Talked to pt about wearing Bipap tonight. He said he did not want to wear it. RT PRN/Refused/Not Available Start: 06/03/16 11: 14 Freq: Status: Discharge Document 06/03/16 11:15 BEBA (Rec: 06/03/16 11:15 BEBA [id number]) PRN/Refused Not Available Yes Comment PT WITH STAFF. Document 06/04/16 17:11 JLC (Rec: 06/04/16 17:37 JLC [id number]) PRN/Refused Not Available Yes Document 06/05/16 03:21 JPM (Rec: 06/05/16 03:22 JPM [id number]) PRN/Refused Not Available No Refused No Treatment Not Given Other (Document in Comments) Comment pt has been vomiting and combative. pt finely asleep, Document 06/05/16 10:26 KLL (Rec: 06/05/16 12:32 KLL [id number]) PRN/Refused Not Available Yes Comment PT NOT IN ROOM RT Respiratory Medication Delivery Start: 06/02/16 21: 49 Freq: Status: Discharge Document 06/02/16 21:49 WRM (Rec: 06/02/16 21:50 WRM [id number]) Respiratory Therapy Pre Assessment SPO2 (95-100) 95 Heart rate 89 Respiratory Rate 32 Oxygen Delivery Method Nasal Cannula O2 Flow Rate 3 Anterior Bilateral Throughout Breath Sounds Expiratory Wheezing Treatment Modality Nebulizer Therapy Respiratory Medications Duoneb Medication Delivery Device Mask Treatment Tolerance Good Cont. Aerosol 1st Hour* Yes Document 06/03/16 05:11 MKT (Rec: 06/03/16 05:42 MKT [place] [id number]) Respiratory Therapy Pre Assessment SPO2 (95-100) 92 L Heart rate 60 Respiratory Rate 18 Oxygen Delivery Method Room Air Anterior Bilateral Throughout Breath Sounds Diminished Treatment Modality Nebulizer Therapy Respiratory Medications Duoneb Medication Delivery Device Mask Treatment Tolerance Good Sub. Aerosol/MDI/DPI Treatment* Yes Respiratory Student completed [place] No Post RT Medication Delivery Post Heart rate 65 Post Respiratory Rate (breaths/min) 20 Anterior Bilateral Throughout Post Breath Sounds Diminished Treatment Outcome No Change Comment No distress or complications noted. Document 06/03/16 15:59 BEBA (Rec: 06/03/16 16:00 BEBA [place] [id number]) RT Cont. Pulse Ox Monitoring RT Cont. Pulse Ox Monitoring Charge* Yes Respiratory Therapy Pre Assessment SPO2 (95-100) 100 Heart rate 80 Respiratory Rate 16 Oxygen Delivery Method Nasal Cannula O2 Flow Rate 3 FIO2 (%) 32 Anterior Bilateral Throughout Breath Sounds Diminished Treatment Modality Nebulizer Therapy Respiratory Medications Duoneb Medication Delivery Device Mask Treatment Tolerance Good Initial Aerosol/MDI/DPI* Yes Post RT Medication Delivery Post Heart rate 85 Post Respiratory Rate (breaths/min) 20 Anterior Bilateral Throughout Post Breath Sounds Diminished Treatment Outcome No Change Comment NO ADVERSE REACTION/RD/SOB NOTED. Document 06/03/16 20:49 PJS (Rec: 06/03/16 20:56 PJS [place] [id number]) Respiratory Therapy Pre Assessment SPO2 (95-100) 96 Heart rate 84 Respiratory Rate 18 Oxygen Delivery Method Nasal Cannula O2 Flow Rate 3 FIO2 (%) 32 Anterior Bilateral Throughout Breath Sounds Expiratory Wheezing Treatment Modality Nebulizer Therapy Respiratory Medications Duoneb Medication Delivery Device Mask Treatment Tolerance Good Sub. Aerosol/MDI/DPI Treatment* Yes Post RT Medication Delivery Post Heart rate 82 Post Respiratory Rate (breaths/min) 17 Anterior Bilateral Throughout Post Breath Sounds Diminished Treatment Outcome Improved Breath Sounds Comment Pt requested tx. No compllicatons noted Document 06/04/16 05:03 PJS (Rec: 06/04/16 05:04 PJS [id number]) Respiratory Therapy Pre Assessment SPO2 (95-100) 98 Heart rate 74 Respiratory Rate 16 Oxygen Delivery Method Nasal Cannula O2 Flow Rate 3 FIO2 (%) 32 Anterior Bilateral Throughout Breath Sounds Expiratory Wheezing Treatment Modality Nebulizer Therapy Respiratory Medications Duoneb Medication Delivery Device Mask Treatment Tolerance Good Sub. Aerosol/MDI/DPI Treatment* Yes Post RT Medication Delivery Post Heart rate 79 Post Respiratory Rate (breaths/min) 16 Anterior Bilateral Throughout Post Breath Sounds Diminished Treatment Outcome Improved Breath Sounds Comment Pt requested tx. No compllicatons noted Document 06/04/16 10:42 [facility] (Rec: 06/04/16 10:53 [id number]) Respiratory Therapy Pre Assessment SPO2 (95-100) 98 Heart rate 74 Respiratory Rate 16 Oxygen Delivery Method Nasal Cannula O2 Flow Rate 3 Anterior Bilateral Throughout Breath Sounds Diminished Expiratory Wheezing Treatment Modality Nebulizer Therapy Respiratory Medications Duoneb Medication Delivery Device Mask Treatment Tolerance Good Sub. Aerosol/MDI/DPI Treatment* Yes Post RT Medication Delivery Post Heart rate 74 Post Respiratory Rate (breaths/min) 16 Anterior Bilateral Throughout Post Breath Sounds Diminished Treatment Outcome No Change Comment no complications RT Cough/Suction Cough Description Non-Productive Sputum Amount None Document 06/05/16 16:33 KLL (Rec: 06/05/16 16:57 KLL [place] [id number]) Respiratory Therapy Pre Assessment SPO2 (95-100) 90 L Heart rate 88 Respiratory Rate 18 Oxygen Delivery Method Room Air Anterior Bilateral Throughout Breath Sounds Diminished Coarse Crackles Treatment Modality Nebulizer Therapy Respiratory Medications Duoneb Medication Delivery Device Mask Treatment Tolerance Good Sub. Aerosol/MDI/DPI Treatment* Yes Post RT Medication Delivery Post Heart rate 90 Post Respiratory Rate (breaths/min) 16 Anterior Bilateral Throughout Post Breath Sounds Diminished Coarse Crackles Treatment Outcome No Change Document 06/05/16 22:41 SMS (Rec: 06/06/16 05:30 [place] [id number]) Respiratory Therapy Pre Assessment SPO2 (95-100) 94 L Heart rate 83 Respiratory Rate 20 Oxygen Delivery Method Nasal Cannula Anterior Bilateral Throughout Breath Sounds Inspiratory Rhonchi Expiratory Wheezing Treatment Modality Nebulizer Therapy Respiratory Medications Duoneb Medication Delivery Device Mask Treatment Tolerance Good Sub. Aerosol/MDI/DPI Treatment* Yes Post RT Medication Delivery Post Heart rate 83 Post Respiratory Rate (breaths/min) 18 Anterior Bilateral Throughout Post Breath Sounds Inspiratory Rhonchi Expiratory Wheezing Treatment Outcome No Change Comment Tx given- no complications Document 06/06/16 04:08 SMS (Rec: 06/06/16 05:27 [place] [id number]) Respiratory Therapy Pre Assessment SPO2 (95-100) 100 Heart rate 82 Respiratory Rate 18 Oxygen Delivery Method Nasal Cannula O2 Flow Rate 3.5 Anterior Bilateral Throughout Breath Sounds Diminished Treatment Modality Nebulizer Therapy Respiratory Medications Duoneb Medication Delivery Device Mask Treatment Tolerance Good Sub. Aerosol/MDI/DPI Treatment* Yes Post RT Medication Delivery Post Heart rate 81 Post Respiratory Rate (breaths/min) 18 Anterior Bilateral Throughout Post Breath Sounds Diminished Treatment Outcome No Change Comment No complications noted. Document 06/06/16 10:46 JPM (Rec: 06/06/16 10:48 JP [id number]) Respiratory Therapy Pre Assessment SPO2 (95-100) 97 Heart rate 61 Respiratory Rate 20 Oxygen Delivery Method Nasal Cannula O2 Flow Rate 4 FIO2 (%) 36 Anterior Bilateral Throughout Breath Sounds Diminished Treatment Modality Nebulizer Therapy Respiratory Medications Duoneb Medication Delivery Device Mask Treatment Tolerance Good Sub. Aerosol/MDI/DPI Treatment* Yes Post RT Medication Delivery Post Heart rate 84 Post Respiratory Rate (breaths/min) 20 Anterior Bilateral Throughout Post Breath Sounds Diminished Treatment Outcome No Change Comment no complications noted during this tx RT has an order or consult Start: 06/03/16 15: 46 Freq: NOW Status: Discharge Document 06/04/16 09:09 TMR (Rec: 06/04/16 09:09 TMR [id number]) BODY TECHNICIAN/PAINTER G-code Therapy Billing Start: 06/05/16 12: 30 Freq: Status: Discharge Document 06/05/16 12:31 DMV (Rec: 06/05/16 12:36 DMV [id number]) ST G-codes G-code Required For This Visit No ST Current Status Swallow ST Current Status Modifier At least 1% but less than 20% impaired, limited or restricted ST Goal Status Swallow ST Goal Status Modifier At least 1% but less than 20% impaired, limited or restricted ST Discharge Status Swallow ST Discharge Status Modifier At least 1% but less than 20% impaired, limited or restricted BODY TECHNICIAN/PAINTER MBS Evaluation Start: 06/05/16 12: 30 Freq: Status: Discharge Document 06/05/16 12:31 DMV (Rec: 06/05/16 12:36 DMV [id number]) Mod Barium Swallow Consult Reason BODY TECHNICIAN/PAINTER Suspect silent aspiration Collaborating Radiologist Dr. Og Previously Treated No Patient Alert Yes Present Method of Hydration Oral Patient Reported Comorbidities Relevant PMH: CHF, dementia, GERD, GI to Rehab Bleed, ID, venous stasis Dysphagia: General Information Hx Dysphagia No Current Food Consistency Regular Thin Liquids Ability to Follow Directions Fair Oral Expression Ability Moderate Impairment Voice Quality Normal Voice Pitch Normal Voice Loudness Normal Mod Barium Swallow-Lat View Pureed Labial Closure No Impairment (WFL) Bolus Formation No Impairment (WFL) Mastication Rotary Chew No Impairment (WFL) A/P Lingual Propulsion Spills No Impairment (WFL) A/P Lingual Propulsion Delay No Impairment (WFL) Lingual Movement No Impairment (WFL) Residue Clearing No Impairment (WFL) Other Oral Phase Observations same results for regular textures and thin liquids. WFL Swallow Response Delay Mild Impairment Base of Tongue No Impairment (WFL) Epiglottic Coverage No Impairment (WFL) Laryngeal Elevation No Impairment (WFL) Vallecular Pooling Mild Impairment Pharyngeal Residue No Impairment (WFL) Pharyngeal Peristalsis No Impairment (WFL) Pyriform Pooling Mild Impairment Penetration No Aspiration No Silent Aspiration No Aspiration with Cough No Other Pharyngeal Phase Observation Same results for regular textures and thin liquids. Mod Barium Swallow Impressions Oral Phase Impression No Impairment (WFL) Pharyngeal Phase Impression No Impairment (WFL) Modified Barium Swallow Recommendations Is patient being assessed for No rehabilitation for diagnosis of stroke? Diet Recommendations Regular Liquid Recommendations Thin Liquids Additional BODY TECHNICIAN/PAINTER Treatment Diagnosis/ WFL Clarification Treatment Recommendations No Treatment Recommended Diagnostic Impressions Patient presents with a functional swallow evidenced by adequate oral motor skills, tongue based retraction, laryngeal elevation, and pharyngeal constriction. Given trials of pureed textures, regular textures, and thin liquids, patient tolerated all without residue or penetration/aspiration. Patient did present with mild vallecular/pyriform pooling. It is recommended that patient continue with current diet of regular textures and thin liquids. Swallow therapy is not warranted at this time. Swallow Diagnosis WFL Rehab Education Education Provided: Details Nothing provided this date. Charge Sheet Modified Barium Swallow Yes ST Charges/Documentation Finished? Yes Is patient being discharged from BODY TECHNICIAN/PAINTER Yes today? Saline lock insertion/management Start: 06/02/16 21: 28 Freq: Status: Complete Document 06/02/16 21:29 NNN (Rec: 06/02/16 21:41 NNN [id number]) IV Insertion/Site Assessment Right Upper Arm IV Established CIRCULAR RIPSAW OPERATOR Yes Reason for IV Insertion Provide Access for IV Medication(s) IV Catheter Type PICC Line Site Observation Patent Dressing Applied Transparent Dressing Sepsis Screening Start: 06/03/16 02: 49 Freq: Q8H Status: Discharge Document 06/03/16 01:45 BMD (Rec: 06/03/16 03:19 BMD [id number]) Sepsis Screening Sepsis Infection Criteria Present confirmed infection Sepsis SIRS Criteria none Sepsis Screen No Definite Risk Sepsis Action Taken no action required Sepsis Name of Provider Notified Mauricio Colbert Document 06/03/16 09:18 BKG (Rec: 06/03/16 09:33 BKG [id number]) Sepsis Screening Sepsis Infection Criteria Present confirmed infection Sepsis SIRS Criteria none Sepsis Screen No Definite Risk Sepsis Action Taken no action required Document 06/03/16 17:49 BKG (Rec: 06/03/16 17:55 BKG [id number]) Sepsis Screening Sepsis Infection Criteria Present confirmed infection Sepsis SIRS Criteria none Sepsis Screen No Definite Risk Sepsis Action Taken no action required Document 06/03/16 19:00 ARH (Rec: 06/03/16 20:26 ARH [id number]) Sepsis Screening Sepsis Infection Criteria Present confirmed infection Sepsis SIRS Criteria none Sepsis Screen No Definite Risk Sepsis Action Taken no action required Sepsis Name of Provider Notified Mauricio Kaushik Colbert Document 06/04/16 03:11 ARH (Rec: 06/04/16 03:11 ARH [id number]) Sepsis Screening Sepsis Infection Criteria Present none Sepsis SIRS Criteria none Sepsis Screen No Definite Risk Sepsis Action Taken no action required Document 06/04/16 09:12 TMR (Rec: 06/04/16 09:19 TMR [id number]) Sepsis Screening Sepsis Infection Criteria Present confirmed infection Sepsis SIRS Criteria none Sepsis Screen No Definite Risk Sepsis Action Taken no action required Sepsis Name of Provider Notified Mauricio Kaushik Colbert Document 06/04/16 16:23 TMR (Rec: 06/04/16 16:44 TMR [id number]) Sepsis Screening Sepsis Infection Criteria Present confirmed infection Sepsis SIRS Criteria none Sepsis Screen No Definite Risk Sepsis Action Taken no action required Document 06/04/16 20:00 KJC (Rec: 06/05/16 01:14 KJC [id number]) Sepsis Screening Sepsis Infection Criteria Present confirmed infection Sepsis SIRS Criteria none Sepsis Screen No Definite Risk Sepsis Action Taken no action required Document 06/05/16 04:16 KJC (Rec: 06/05/16 04:19 KJC [id number]) Sepsis Screening Sepsis Infection Criteria Present confirmed infection Sepsis SIRS Criteria none Sepsis Screen No Definite Risk Sepsis Action Taken no action required Document 06/05/16 07:51 AKC (Rec: 06/05/16 08:03 [facility] [id number]) Sepsis Screening Sepsis Infection Criteria Present confirmed infection Sepsis SIRS Criteria none Sepsis Screen No Definite Risk Sepsis Action Taken no action required Document 06/05/16 15:27 [facility] (Rec: 06/05/16 15:37 [facility] [id number]) Sepsis Screening Sepsis Infection Criteria Present confirmed infection Sepsis SIRS Criteria none Sepsis Screen No Definite Risk Sepsis Action Taken no action required Document 06/06/16 01:45 WDT (Rec: 06/06/16 03:04 WDT [id number]) Sepsis Screening Sepsis Infection Criteria Present confirmed infection Sepsis SIRS Criteria none Sepsis Screen No Definite Risk Sepsis Action Taken no action required Document 06/06/16 09:00 [id number] (Rec: 06/06/16 09:20 [id number]) Sepsis Screening Sepsis Infection Criteria Present confirmed infection Sepsis SIRS Criteria none Sepsis Screen No Definite Risk Sepsis Action Taken no action required Sepsis Name of Provider Notified Mauricio Colbert Skin Risk Assessment Scale Start: 06/03/16 02: 49 Freq: Q12H Status: Discharge Document 06/03/16 01:45 BMD (Rec: 06/03/16 03:19 BMD [id number]) Skin Risk Assessment Scale Moisture Risk Very Moist Sensory Perception No Impairment Activity Risk Bedfast Mobility Risk Very Limited Nutrition Risk Probably Inadequate Friction & Shear Risk No Apparent Problem Skin Risk Total Score (points) 14 Document 06/03/16 09:18 BKG (Rec: 06/03/16 09:33 BKG [id number]) Skin Risk Assessment Scale Moisture Risk Very Moist Sensory Perception No Impairment Activity Risk Bedfast Mobility Risk Very Limited Nutrition Risk Adequate Friction & Shear Risk No Apparent Problem Skin Risk Total Score (points) 15 Document 06/03/16 19:00 ARH (Rec: 06/03/16 20:26 ARH [id number]) Skin Risk Assessment Scale Moisture Risk Very Moist Sensory Perception No Impairment Activity Risk Bedfast Mobility Risk Very Limited Nutrition Risk Adequate Friction & Shear Risk No Apparent Problem Skin Risk Total Score (points) 15 Document 06/04/16 09:10 TMR (Rec: 06/04/16 09:10 TMR [id number]) Skin Risk Assessment Scale Moisture Risk Very Moist Sensory Perception No Impairment Activity Risk Bedfast Mobility Risk Very Limited Nutrition Risk Adequate Friction & Shear Risk No Apparent Problem Skin Risk Total Score (points) 15 Document 06/04/16 20:00 KJC (Rec: 06/05/16 01:14 KJC [id number]) Skin Risk Assessment Scale Moisture Risk Very Moist Sensory Perception No Impairment Activity Risk Bedfast Mobility Risk Very Limited Nutrition Risk Adequate Friction & Shear Risk No Apparent Problem Skin Risk Total Score (points) 15 Document 06/05/16 07:51 AKC (Rec: 06/05/16 08:03 AKC [id number]) Skin Risk Assessment Scale Moisture Risk Very Moist Sensory Perception No Impairment Activity Risk Bedfast Mobility Risk Very Limited Nutrition Risk Adequate Friction & Shear Risk No Apparent Problem Skin Risk Total Score (points) 15 Document 06/06/16 01:45 WDT (Rec: 06/06/16 03:04 WDT [id number]) Skin Risk Assessment Scale Moisture Risk Very Moist Sensory Perception Slightly Limited Activity Risk Bedfast Mobility Risk Very Limited Nutrition Risk Adequate Friction & Shear Risk No Apparent Problem Skin Risk Total Score (points) 14 Supplemental oxygen titration Start: 06/02/16 21: 44 Freq: .ONCE Status: Complete Document 06/02/16 22:02 NNN (Rec: 06/02/16 22:02 NNN [id number]) Oxygen Adminstration Oxygen Saturation (95-100) 100 Oxygen Delivery Method Nasal Cannula Flow Rate 4 System Review Start: 06/03/16 02: 49 Freq: Q8H Status: Discharge Document 06/03/16 01:45 BMD (Rec: 06/03/16 03:19 BMD [id number]) Pain Assessment Pain Present Reports No Pain Neurological Assessment Eye Opening Spontaneous Motor Obeys Commands Verbal Oriented Coma Scale Total 15 Neurologic Status Alert Patient Orientation Person Place Time Arousable To Name Speech Pattern Normal rate Normal rhythm Normal tone Appropriate Slurred Garbled Patient Behavior Appropriate Cooperative Bilateral Pupil Reaction Reactive Pupil Size (mm) 3 Pupil [place] Equal Scleral Edema No [place] Strength Equal Push/Pull Equal Numbness/Tingling No Facial Symmetry Symmetrical Corneal Reflex Present Bilateral Blink Present Cough/Gag Normal Doll's-Eye Absent Cardiovascular Assessment Signs and Symptoms Dyspnea on Exertion Orthopnea Leg Edema Heart Sounds S1 & S2 Pulse Rhythm Regular Jugular Vein Distention None Capillary Refill < 3 Seconds Circulatory Tenderness Description None Right Radial 2+ Left Radial 2+ Right Dorsalis Pedis 1+ Left Dorsalis Pedis 1+ Bilateral Leg Type Non-Pitting Chest Pain Complaint No Has Confirmed Diagnosis of DVT, PE or No VTE VTE Prophylaxis SQ Treatment Mechanical Prophylaxis Yes Documentation of Mechanical Device Intermittent pneumatic compression device Mechanical Device Location Bilateral Lower Extremities Cardiac Monitoring Heart Rate 84 Monitoring Method Telemetry Rhythm Sinus Rhythm MN Interval 0.15 QRS Interval 0.06 QT Interval 0.33 Monitor Number [id number] Manager Administration Limits 125/40 Strip placed in Chart Yes Monitor History Reviewed Yes Memory Cleared No Respiratory Assessment Respiratory Symptoms Shortness of Breath on Exertion Wheezing Effort Normal for Patient Non-Labored Depth Normal Respiratory Pattern Regular Tachypnea Chest Shape Normal Expansion Symmetrical All Lung [place] Diminished Right Upper Lobe Inspiratory Wheezing Expiratory Wheezing Right Middle Lobe Inspiratory Wheezing Expiratory Wheezing Left Upper Lobe Inspiratory Wheezing Expiratory Wheezing Oxygen Delivery Method Nasal Cannula Oxygen Flow Rate (LPM) 3 Cough Description Voluntary Non-Productive Cough Frequency Intermittent Sputum Amount None Gastrointestinal Assessment Abdomen Description Soft Non-Tender Round 3 or more loose stools, in less than 24 No hours Nausea/Vomiting Presence None All Four Quadrants Active Flatus Presence Present Genitourinary Assessment Genitourinary Symptoms None Bladder Pattern Incontinent Incontinence Total Voiding Method Brief Bladder Distention None Suprapubic Tenderness with Palpation No Comment: No urine to assess at this time. Integumentary Assessment Nail Bed Appearance [place] Temperature Warm Moisture Dry Turgor Normal Color Normal All Pressure Points Assessed No Evidence of Incision/Wounds/Breakdown Yes: Wounds to bilat shins. Bandages dry and intact. Mucous membranes moist, pink and intact Yes Oral Cavity Normal Musculoskeletal Assessment Musculoskeletal Symptoms Generalized Weakness Document 06/03/16 09:18 [facility] (Rec: 06/03/16 09:33 [facility] [id number]) Pain Assessment Pain Present Reports No Pain Neurological Assessment Eye Opening To Voice Motor Obeys Commands Verbal Confused Coma Scale Total 13 Neurologic Status Alert Patient Orientation Person Place Time Arousable To Name Speech Pattern Normal rate Normal rhythm Normal tone Appropriate Slurred Garbled Patient Behavior Appropriate Cooperative Mood Description Calm Relaxed Bilateral Pupil Reaction Reactive Pupil Size (mm) 3 Pupil [place] Equal Scleral Edema No [place] Strength Equal Push/Pull Equal Numbness/Tingling No Facial Symmetry Symmetrical Blink Present Cough/Gag Normal Doll's-Eye Absent Cardiovascular Assessment Signs and Symptoms Dyspnea on Exertion Orthopnea Leg Edema Heart Sounds S1 & S2 Pulse Rhythm Regular Jugular Vein Distention None Capillary Refill < 3 Seconds Circulatory Tenderness Description None Right Radial 2+ Left Radial 2+ Right Dorsalis Pedis 1+ Left Dorsalis Pedis 1+ Bilateral Leg Type Non-Pitting Chest Pain Complaint No Has Confirmed Diagnosis of DVT, PE or No VTE VTE Prophylaxis SQ Treatment Mechanical Prophylaxis Yes Documentation of Mechanical Device Intermittent pneumatic compression device Mechanical Device Location Bilateral Lower Extremities Cardiac Monitoring Heart Rate 68 Monitoring Method Telemetry Rhythm Sinus Rhythm [place] Interval 0.12 QRS Interval 0.04 QT Interval 0.38 Monitor Number [id number] Strip placed in Chart Yes Monitor History Reviewed Yes Memory Cleared No Respiratory Assessment Respiratory Symptoms Shortness of Breath on Exertion Wheezing Effort Normal for Patient Spontaneous Non-Labored Depth Normal Respiratory Pattern Regular Tachypnea Chest Shape Normal Expansion Symmetrical All Lung [place] Diminished Right Upper Lobe Inspiratory Wheezing Expiratory Wheezing Right Middle Lobe Inspiratory Wheezing Expiratory Wheezing Left Upper Lobe Inspiratory Wheezing Expiratory Wheezing Right Upper Lobe Expiratory Wheezing Left Upper Lobe Expiratory Wheezing Oxygen Delivery Method Nasal Cannula Oxygen Flow Rate (LPM) 3 Cough Description Voluntary Non-Productive Cough Frequency Intermittent Sputum Amount None Gastrointestinal Assessment Abdomen Description Soft Non-Tender Round 3 or more loose stools, in less than 24 No hours Nausea/Vomiting Presence None All Four Quadrants Active Flatus Presence Present Genitourinary Assessment Genitourinary Symptoms None Bladder Pattern Incontinent Incontinence Total Voiding Method Brief Color Dark Yellow Bladder Distention None Suprapubic Tenderness with Palpation No Comment: No urine to assess at this time. Integumentary Assessment Nail Bed Appearance [place] Temperature Warm Moisture Dry Turgor Normal Color Normal All Pressure Points Assessed No Evidence of Incision/Wounds/Breakdown Yes: Wounds to bilat shins. Bandages dry and intact. patient refuses treatment Mucous membranes moist, pink and intact Yes Oral Cavity Normal Musculoskeletal Assessment Musculoskeletal Symptoms Generalized Weakness Document 06/03/16 17:49 [facility] (Rec: 06/03/16 17:55 [facility] [id number]) Pain Assessment Pain Present Reports No Pain Neurological Assessment Eye Opening Spontaneous Motor Obeys Commands Verbal Confused Coma Scale Total 14 Neurologic Status Alert Patient Orientation Person Place Time Arousable To Name Speech Pattern Normal rate Normal rhythm Appropriate Slurred Garbled Mumbled Patient Behavior Appropriate Cooperative Mood Description Calm Relaxed Bilateral Pupil Reaction Reactive Pupil Size (mm) 3 Pupil [place] Equal Scleral Edema No [place] Strength Equal Push/Pull Equal Numbness/Tingling No Facial Symmetry Symmetrical Blink Present Cough/Gag Normal Doll's-Eye Absent Cardiovascular Assessment Signs and Symptoms Dyspnea on Exertion Orthopnea Leg Edema Heart Sounds S1 & S2 Pulse Rhythm Regular Jugular Vein Distention None Capillary Refill < 3 Seconds Circulatory Tenderness Description None Right Radial 2+ Left Radial 2+ Right Dorsalis Pedis 1+ Left Dorsalis Pedis 1+ Bilateral Leg Type Non-Pitting Chest Pain Complaint No Has Confirmed Diagnosis of DVT, PE or No VTE VTE Prophylaxis SQ Treatment Mechanical Prophylaxis No Cardiac Monitoring Heart Rate 78 Monitoring Method Telemetry Rhythm Sinus Rhythm [place] Interval 0.08 QRS Interval 0.08 QT Interval 0.38 Monitor Number [id number] Strip placed in Chart Yes Monitor History Reviewed Yes Memory Cleared No Respiratory Assessment Respiratory Symptoms Shortness of Breath on Exertion Wheezing Effort Normal for Patient Spontaneous Non-Labored Depth Normal Respiratory Pattern Regular Chest Shape Normal Expansion Symmetrical All Lung [place] Diminished Oxygen Delivery Method Nasal Cannula Oxygen Flow Rate (LPM) 3 FIO2 (%) (%) 32 Cough Description Voluntary Non-Productive Cough Frequency Intermittent Sputum Amount None Gastrointestinal Assessment Abdomen Description Soft Non-Tender Round 3 or more loose stools, in less than 24 No hours Nausea/Vomiting Presence None All Four Quadrants Active Flatus Presence Present Genitourinary Assessment Genitourinary Symptoms None Bladder Pattern Incontinent Incontinence Total Voiding Method Brief Color Dark Yellow Bladder Distention None Suprapubic Tenderness with Palpation No Comment: No urine to assess at this time. Integumentary Assessment Nail Bed Appearance [place] Temperature Warm Moisture Dry Turgor Normal Color Normal All Pressure Points Assessed No Evidence of Incision/Wounds/Breakdown Yes: Wounds to bilat shins. Bandages dry and intact. Mucous membranes moist, pink and intact Yes Oral Cavity Normal Musculoskeletal Assessment Musculoskeletal Symptoms Generalized Weakness Document 06/03/16 19:00 [facility] (Rec: 06/03/16 20:26 [facility] [id number]) Neurological Assessment Eye Opening Spontaneous Motor Obeys Commands Verbal Confused Coma Scale Total 14 Neurologic Status Alert Patient Orientation Person Place Time Arousable To Name Speech Pattern Normal rate Normal rhythm Appropriate Slurred Garbled Mumbled Patient Behavior Appropriate Cooperative Mood Description Calm Relaxed Bilateral Pupil Reaction Reactive Pupil Size (mm) 3 Pupil [place] Equal Scleral Edema No [place] Strength Equal Bilat Weak Push/Pull Equal Bilat Weak Numbness/Tingling No Facial Symmetry Symmetrical Corneal Reflex Present Bilateral Blink Present Cough/Gag Normal Doll's-Eye Absent Cardiovascular Assessment Signs and Symptoms Dyspnea on Exertion Orthopnea Leg Edema Heart Sounds S1 & S2 Pulse Rhythm Regular Jugular Vein Distention None Capillary Refill < 3 Seconds Circulatory Tenderness Description None Right Radial 2+ Left Radial 2+ Right Dorsalis Pedis 1+ Left Dorsalis Pedis 1+ Right Posterior Tibialis 2+ Left Posterior Tibialis 2+ Bilateral Leg Type Non-Pitting Chest Pain Complaint No Has Confirmed Diagnosis of DVT, PE or No VTE VTE Prophylaxis SQ Treatment Mechanical Prophylaxis No Cardiac Monitoring Heart Rate 82 Monitoring Method Telemetry Rhythm Sinus Rhythm [place] Interval 0.12 QRS Interval 0.04 QT Interval 0.34 Monitor Number [id number] Manager Administration Limits 125/40 Strip placed in Chart Yes Monitor History Reviewed Yes Memory Cleared No Respiratory Assessment Respiratory Symptoms Shortness of Breath on Exertion Wheezing Effort Spontaneous Non-Labored Depth Normal Respiratory Pattern Regular Chest Shape Normal Expansion Symmetrical All Lung [place] Diminished Right Upper Lobe Inspiratory Wheezing Expiratory Wheezing Right Middle Lobe Inspiratory Wheezing Expiratory Wheezing Left Upper Lobe Inspiratory Wheezing Expiratory Wheezing Right Upper Lobe Expiratory Wheezing Left Upper Lobe Expiratory Wheezing Oxygen Delivery Method Nasal Cannula Oxygen Flow Rate (LPM) 3 FIO2 (%) (%) 32 Cough Description Voluntary Non-Productive Cough Frequency Intermittent Sputum Amount None Gastrointestinal Assessment Abdomen Description Soft Non-Tender Round 3 or more loose stools, in less than 24 No hours Nausea/Vomiting Presence None All Four Quadrants Active Flatus Presence Present Genitourinary Assessment Genitourinary Symptoms None Bladder Pattern Incontinent Incontinence Total Voiding Method Brief Color Dark Yellow Bladder Distention None Suprapubic Tenderness with Palpation No Comment: No urine to assess at this time. Integumentary Assessment Nail Bed Appearance [place] Temperature Warm Moisture Dry Turgor Normal Color Normal All Pressure Points Assessed No Evidence of Incision/Wounds/Breakdown Yes: Wounds to bilat shins. Bandages dry and intact. Mucous membranes moist, pink and intact Yes Oral Cavity Normal Musculoskeletal Assessment Musculoskeletal Symptoms Generalized Weakness Document 06/04/16 03:46 [facility] (Rec: 06/04/16 03:54 [facility] [id number]) Pain Assessment Pain Present Reports No Pain Neurological Assessment Eye Opening Spontaneous Motor Obeys Commands Verbal Confused Coma Scale Total 14 Neurologic Status Alert Patient Orientation Person Place Time Arousable To Name Speech Pattern Normal rate Normal rhythm Appropriate Slurred Garbled Mumbled Patient Behavior Appropriate Cooperative Mood Description Calm Relaxed Bilateral Pupil Reaction Reactive Pupil Size (mm) 3 Pupil [place] Equal Scleral Edema No [place] Strength Equal Bilat Weak Push/Pull Equal Bilat Weak Numbness/Tingling No Facial Symmetry Symmetrical Corneal Reflex Present Bilateral Blink Present Cough/Gag Normal Doll's-Eye Absent Cardiovascular Assessment Signs and Symptoms Dyspnea on Exertion Orthopnea Leg Edema Heart Sounds S1 & S2 Pulse Rhythm Regular Jugular Vein Distention None Capillary Refill < 3 Seconds Circulatory Tenderness Description None Right Radial 2+ Left Radial 2+ Right Dorsalis Pedis 1+ Left Dorsalis Pedis 1+ Right Posterior Tibialis 2+ Left Posterior Tibialis 2+ Bilateral Leg Type Non-Pitting Chest Pain Complaint No Has Confirmed Diagnosis of DVT, PE or No VTE VTE Prophylaxis SQ Treatment Mechanical Prophylaxis No Cardiac Monitoring Heart Rate 238 Monitoring Method Telemetry Rhythm Sinus Rhythm [place] Interval 0.12 QRS Interval 0.04 QT Interval 0.30 Monitor Number [id number] Manager Administration Limits 125/40 Strip placed in Chart Yes Respiratory Assessment Respiratory Symptoms Shortness of Breath on Exertion Wheezing Effort Spontaneous Non-Labored Depth Normal Respiratory Pattern Regular Chest Shape Normal Expansion Symmetrical All Lung [place] Diminished Right Upper Lobe Inspiratory Wheezing Expiratory Wheezing Right Middle Lobe Inspiratory Wheezing Expiratory Wheezing Left Upper Lobe Inspiratory Wheezing Expiratory Wheezing Right Upper Lobe Expiratory Wheezing Left Upper Lobe Expiratory Wheezing Oxygen Delivery Method Nasal Cannula Oxygen Flow Rate (LPM) 3 FIO2 (%) (%) 32 Cough Description Voluntary Non-Productive Cough Frequency Intermittent Sputum Amount None Gastrointestinal Assessment Abdomen Description Soft Non-Tender Round 3 or more loose stools, in less than 24 No hours Nausea/Vomiting Presence None All Four Quadrants Active Flatus Presence Present Genitourinary Assessment Genitourinary Symptoms None Bladder Pattern Incontinent Incontinence Total Voiding Method Brief Bladder Distention None Suprapubic Tenderness with Palpation No Comment: No urine to assess at this time. Integumentary Assessment Nail Bed Appearance [place] Temperature Warm Moisture Dry Turgor Normal Color Normal All Pressure Points Assessed No Evidence of Incision/Wounds/Breakdown Yes: Wounds to bilat shins. Bandages dry and intact. Mucous membranes moist, pink and intact Yes Oral Cavity Normal Musculoskeletal Assessment Musculoskeletal Symptoms Generalized Weakness Document 06/04/16 09:12 [facility] (Rec: 06/04/16 09:19 [facility] [id number]) Pain Assessment Pain Present Reports No Pain Neurological Assessment Eye Opening Spontaneous Motor Obeys Commands Verbal Oriented Coma Scale Total 15 Neurologic Status Alert Patient Orientation Person Place Time Arousable To Name Speech Pattern Garbled Rambling Mumbled Patient Behavior Appropriate Cooperative Mood Description Calm Relaxed Bilateral Pupil Reaction Reactive Pupil Size (mm) 3 Pupil [place] Equal Scleral Edema No [place] Strength Equal Bilat Weak Push/Pull Equal Bilat Weak Numbness/Tingling No Facial Symmetry Symmetrical Cardiovascular Assessment Signs and Symptoms Dyspnea on Exertion Leg Edema Heart Sounds S1 & S2 Pulse Rhythm Regular Jugular Vein Distention None Capillary Refill < 3 Seconds Circulatory Tenderness Description None Right Radial 2+ Left Radial 2+ Right Posterior Tibialis 1+ Left Posterior Tibialis 1+ Bilateral Leg Type Non-Pitting Chest Pain Complaint No Has Confirmed Diagnosis of DVT, PE or No VTE VTE Prophylaxis SQ Treatment Mechanical Prophylaxis No Cardiac Monitoring Heart Rate 76 Monitoring Method Telemetry Rhythm Sinus Rhythm [place] Interval 0.10 QRS Interval 0.08 QT Interval 0.38 Monitor Number [id number] Manager Administration Limits 125/40 Strip placed in Chart Yes Monitor History Reviewed Yes Memory Cleared No Respiratory Assessment Respiratory Symptoms Unable to Lie Flat Shortness of Breath on Exertion Wheezing Effort Spontaneous Non-Labored Depth Normal Respiratory Pattern Regular Chest Shape Normal Expansion Symmetrical All Lung [place] Diminished Left Upper Lobe Expiratory Wheezing Left Lower Lobe Expiratory Wheezing Oxygen Delivery Method Nasal Cannula Oxygen Flow Rate (LPM) 3 Cough Description Voluntary Non-Productive Cough Frequency Intermittent Sputum Amount None Gastrointestinal Assessment Abdomen Description Soft Non-Tender Round 3 or more loose stools, in less than 24 No hours Nausea/Vomiting Presence None All Four Quadrants Active Flatus Presence Present Genitourinary Assessment Genitourinary Symptoms None Bladder Pattern Incontinent Incontinence Total Voiding Method Brief Bladder Distention None Suprapubic Tenderness with Palpation No Comment: No urine to assess at this time. Integumentary Assessment Nail Bed Appearance [place] Temperature Warm Moisture Dry Turgor Normal Color Normal All Pressure Points Assessed No Evidence of Incision/Wounds/Breakdown Yes: Wounds to bilat shins. Bandages dry and intact. Mucous membranes moist, pink and intact Yes Oral Cavity Normal Musculoskeletal Assessment Musculoskeletal Symptoms Generalized Weakness Document 06/04/16 16:23 [facility] (Rec: 06/04/16 16:44 [facility] [id number]) Pain Assessment Pain Present Reports No Pain Neurological Assessment Eye Opening Spontaneous Motor Obeys Commands Verbal Oriented Coma Scale Total 15 Neurologic Status Alert Patient Orientation Person Place Time Arousable To Name Speech Pattern Garbled Rambling Mumbled Patient Behavior Appropriate Cooperative Mood Description Calm Relaxed Bilateral Pupil Reaction Reactive Pupil Size (mm) 3 Pupil [place] Equal Scleral Edema No [place] Strength Equal Bilat Weak Push/Pull Equal Bilat Weak Numbness/Tingling No Facial Symmetry Symmetrical Doll's-Eye Absent Cardiovascular Assessment Signs and Symptoms Dyspnea on Exertion Leg Edema Heart Sounds S1 & S2 Pulse Rhythm Regular Jugular Vein Distention None Capillary Refill < 3 Seconds Circulatory Tenderness Description None Right Radial 2+ Left Radial 2+ Right Posterior Tibialis 1+ Left Posterior Tibialis 1+ Bilateral Leg Type Non-Pitting Chest Pain Complaint No Has Confirmed Diagnosis of DVT, PE or No VTE VTE Prophylaxis SQ Treatment Mechanical Prophylaxis No Cardiac Monitoring [place] Interval 0.10 QRS Interval 0.06 QT Interval 0.36 Respiratory Assessment Respiratory Symptoms Unable to Lie Flat Shortness of Breath on Exertion Wheezing Effort Spontaneous Non-Labored Depth Normal Respiratory Pattern Regular Chest Shape Normal Expansion Symmetrical All Lung [place] Diminished Left Upper Lobe Expiratory Wheezing Left Lower Lobe Expiratory Wheezing Right Upper Lobe Expiratory Wheezing Left Upper Lobe Expiratory Wheezing Oxygen Delivery Method Nasal Cannula Oxygen Flow Rate (LPM) 3 Cough Description Non-Productive Cough Frequency Intermittent Sputum Amount None Gastrointestinal Assessment Abdomen Description Soft Non-Tender Round 3 or more loose stools, in less than 24 No hours Nausea/Vomiting Presence None All Four Quadrants Active Flatus Presence Present Genitourinary Assessment Genitourinary Symptoms None Bladder Pattern Incontinent Incontinence Total Voiding Method Brief Bladder Distention None Suprapubic Tenderness with Palpation No Comment: No urine to assess at this time. Integumentary Assessment Nail Bed Appearance [place] Temperature Warm Moisture Dry Turgor Normal Color Normal All Pressure Points Assessed No Evidence of Incision/Wounds/Breakdown Yes: Wounds to bilat shins. Bandages dry and intact. Mucous membranes moist, pink and intact Yes Oral Cavity Normal Musculoskeletal Assessment Musculoskeletal Symptoms Generalized Weakness Document 06/04/16 20:00 [facility] (Rec: 06/05/16 01:14 [facility] [id number]) Pain Assessment Pain Present Reports No Pain Neurological Assessment Eye Opening Spontaneous Motor Obeys Commands Verbal Oriented Coma Scale Total 15 Neurologic Status Alert Patient Orientation Person Place Time Arousable To Name Speech Pattern Garbled Rambling Mumbled Patient Behavior Appropriate Cooperative Mood Description Calm Relaxed Bilateral Pupil Reaction Reactive Pupil Size (mm) 3 Pupil [place] Equal Scleral Edema No [place] Strength Equal Bilat Weak Push/Pull Equal Bilat Weak Numbness/Tingling No Facial Symmetry Symmetrical Corneal Reflex Present Bilateral Blink Present Cough/Gag Normal Doll's-Eye Absent Cardiovascular Assessment Signs and Symptoms Dyspnea on Exertion Leg Edema Heart Sounds S1 & S2 Pulse Rhythm Regular Jugular Vein Distention None Capillary Refill < 3 Seconds Circulatory Tenderness Description None Right Radial 2+ Left Radial 2+ Right Posterior Tibialis 1+ Left Posterior Tibialis 1+ Bilateral Leg Type Non-Pitting Chest Pain Complaint No Has Confirmed Diagnosis of DVT, PE or No VTE VTE Prophylaxis SQ Treatment Mechanical Prophylaxis No Pacemaker Assessment Cardiac Comment: No order for tele at this time . Respiratory Assessment Respiratory Symptoms Unable to Lie Flat Shortness of Breath on Exertion Wheezing Effort Spontaneous Non-Labored Depth Normal Respiratory Pattern Regular Chest Shape Normal Expansion Symmetrical All Lung [place] Diminished Expiratory Wheezing Oxygen Delivery Method Nasal Cannula Oxygen Flow Rate (LPM) 3 Cough Description Non-Productive Cough Frequency Intermittent Sputum Amount None Gastrointestinal Assessment Abdomen Description Soft Non-Tender Round 3 or more loose stools, in less than 24 No hours Nausea/Vomiting Presence None All Four Quadrants Active Flatus Presence Present Genitourinary Assessment Genitourinary Symptoms None Bladder Pattern Incontinent Incontinence Total Voiding Method Brief Color Straw Bladder Distention None Suprapubic Tenderness with Palpation No Integumentary Assessment Nail Bed Appearance [place] Temperature Warm Moisture Dry Turgor Normal Color Normal All Pressure Points Assessed No Evidence of Incision/Wounds/Breakdown Yes: Wounds to bilat shins. Bandages dry and intact. Mucous membranes moist, pink and intact Yes Oral Cavity Normal Musculoskeletal Assessment Musculoskeletal Symptoms Generalized Weakness Document 06/05/16 04:16 [facility] (Rec: 06/05/16 04:19 [facility] [id number]) Pain Assessment Pain Present Reports No Pain Neurological Assessment Eye Opening Spontaneous Motor Obeys Commands Verbal Oriented Coma Scale Total 15 Neurologic Status Alert Patient Orientation Person Place Time Arousable To Name Speech Pattern Garbled Rambling Mumbled Patient Behavior Appropriate Cooperative Mood Description Calm Relaxed [place] Strength Equal Bilat Weak Push/Pull Equal Bilat Weak Numbness/Tingling No Facial Symmetry Symmetrical Cardiovascular Assessment Signs and Symptoms Dyspnea on Exertion Leg Edema Heart Sounds S1 & S2 Pulse Rhythm Regular Jugular Vein Distention None Capillary Refill < 3 Seconds Circulatory Tenderness Description None Right Radial 2+ Left Radial 2+ Right Posterior Tibialis 1+ Left Posterior Tibialis 1+ Bilateral Leg Type Non-Pitting Chest Pain Complaint No Has Confirmed Diagnosis of DVT, PE or No VTE VTE Prophylaxis SQ Treatment Mechanical Prophylaxis No Pacemaker Assessment Cardiac Comment: No order for tele at this time . Respiratory Assessment Respiratory Symptoms Unable to Lie Flat Shortness of Breath on Exertion Wheezing Effort Spontaneous Non-Labored Depth Normal Respiratory Pattern Regular Chest Shape Normal Expansion Symmetrical All Lung [place] Diminished Expiratory Wheezing Oxygen Delivery Method Nasal Cannula Oxygen Flow Rate (LPM) 3 Cough Description Non-Productive Cough Frequency Intermittent Sputum Amount None Gastrointestinal Assessment Abdomen Description Soft Non-Tender Round 3 or more loose stools, in less than 24 No hours Nausea/Vomiting Presence None All Four Quadrants Active Flatus Presence Present Genitourinary Assessment Genitourinary Symptoms None Bladder Pattern Incontinent Incontinence Total Voiding Method Brief Bladder Distention None Suprapubic Tenderness with Palpation No Integumentary Assessment Nail Bed Appearance [place] Temperature Warm Moisture Dry Turgor Normal Color Normal All Pressure Points Assessed No Evidence of Incision/Wounds/Breakdown Yes: Wounds to bilat shins. Bandages dry and intact. Mucous membranes moist, pink and intact Yes Oral Cavity Normal Musculoskeletal Assessment Musculoskeletal Symptoms Generalized Weakness Document 06/05/16 07:51 [facility] (Rec: 06/05/16 08:03 [facility] [id number]) Pain Assessment Pain Present Reports Pain headache Pain Intensity 2 Description Ache Scale Used Numeric (1 - 10) Pain Intervention Medication Position Neurological Assessment Eye Opening Spontaneous Motor Obeys Commands Verbal Oriented Coma Scale Total 15 Neurologic Status Alert Patient Orientation Person Place Time Arousable To Name Speech Pattern Garbled Rambling Mumbled Patient Behavior Appropriate Cooperative Mood Description Calm Relaxed Bilateral Pupil Reaction Reactive Pupil Size (mm) 3 Pupil [place] Equal Scleral Edema No [place] Strength Equal Bilat Weak Push/Pull Equal Bilat Weak Numbness/Tingling Yes: pt states "I cant feel my legs" Facial Symmetry Symmetrical Blink Present Cough/Gag Normal Neurological Comment: patient alert and oriented X3. will continue to monitor. Cardiovascular Assessment Signs and Symptoms Dyspnea on Exertion Leg Edema Heart Sounds S1 & S2 Pulse Rhythm Regular Jugular Vein Distention None Capillary Refill < 3 Seconds Circulatory Tenderness Description None Right Radial 2+ Left Radial 2+ Right Posterior Tibialis 1+ Left Posterior Tibialis 1+ Bilateral Leg Type Non-Pitting Chest Pain Complaint No Has Confirmed Diagnosis of DVT, PE or No VTE VTE Prophylaxis SQ Treatment Mechanical Prophylaxis No Pacemaker Assessment Cardiac Comment: pt refusing tele at this time. will continue to monitor. Respiratory Assessment Respiratory Symptoms Unable to Lie Flat Shortness of Breath on Exertion Wheezing Effort Spontaneous Non-Labored Depth Normal Respiratory Pattern Regular Chest Shape Normal Expansion Symmetrical All Lung [place] Diminished Expiratory Wheezing Right Upper Lobe Diminished Right Middle Lobe Diminished Right Lower Lobe Diminished Left Upper Lobe Expiratory Wheezing Left Lower Lobe Expiratory Wheezing Oxygen Delivery Method Nasal Cannula Oxygen Flow Rate (LPM) 3 FIO2 (%) (%) 32 Cough Description Non-Productive Cough Frequency Intermittent Sputum Amount None Respiratory Comment: pt refusing to let nurse listen to posterior lung sounds. Gastrointestinal Assessment Abdomen Description Soft Non-Tender Round 3 or more loose stools, in less than 24 No hours Nausea/Vomiting Presence None All Four Quadrants Active Flatus Presence Present Genitourinary Assessment Genitourinary Symptoms None Bladder Pattern Incontinent Incontinence Total Voiding Method Brief Bladder Distention None Suprapubic Tenderness with Palpation No Comment: No urine to assess at this time. Integumentary Assessment Nail Bed Appearance [place] Temperature Warm Moisture Dry Turgor Normal Color Normal All Pressure Points Assessed No Evidence of Incision/Wounds/Breakdown Yes: Wounds to bilat shins. Bandages dry and intact. Mucous membranes moist, pink and intact Yes Oral Cavity Normal Musculoskeletal Assessment Musculoskeletal Symptoms Generalized Weakness Document 06/05/16 15:27 [facility] (Rec: 06/05/16 15:37 [facility] [id number]) Pain Assessment Pain Present Reports No Pain Neurological Assessment Eye Opening Spontaneous Motor Obeys Commands Verbal Oriented Coma Scale Total 15 Neurologic Status Alert Patient Orientation Person Place Time Arousable To Name Speech Pattern Garbled Rambling Mumbled Patient Behavior Appropriate Cooperative Mood Description Calm Relaxed Bilateral Pupil Reaction Reactive Pupil Size (mm) 3 Pupil [place] Equal Scleral Edema No [place] Strength Equal Bilat Weak Push/Pull Equal Bilat Weak Numbness/Tingling Yes: pt states "I cant feel my legs" Facial Symmetry Symmetrical Blink Present Cough/Gag Normal Doll's-Eye Absent Neurological Comment: patient alert and oriented X3. will continue to monitor. Cardiovascular Assessment Signs and Symptoms Dyspnea on Exertion Leg Edema Heart Sounds S1 & S2 Pulse Rhythm Regular Jugular Vein Distention None Capillary Refill < 3 Seconds Circulatory Tenderness Description None Right Radial 2+ Left Radial 2+ Right Posterior Tibialis 1+ Left Posterior Tibialis 1+ Bilateral Leg Type Non-Pitting Chest Pain Complaint No Has Confirmed Diagnosis of DVT, PE or No VTE VTE Prophylaxis SQ Treatment Mechanical Prophylaxis No Pacemaker Assessment Cardiac Comment: pt refusing tele at this time. will continue to monitor. Respiratory Assessment Respiratory Symptoms Unable to Lie Flat Shortness of Breath on Exertion Wheezing Effort Spontaneous Non-Labored Depth Normal Respiratory Pattern Regular Chest Shape Normal Expansion Symmetrical All Lung [place] Diminished Inspiratory Wheezing Expiratory Wheezing Right Upper Lobe Inspiratory Wheezing Expiratory Wheezing Right Middle Lobe Diminished Right Lower Lobe Diminished Left Upper Lobe Inspiratory Wheezing Expiratory Wheezing Left Lower Lobe Diminished Oxygen Delivery Method Nasal Cannula Oxygen Flow Rate (LPM) 3 FIO2 (%) (%) 32 Cough Description Non-Productive Cough Frequency Intermittent Sputum Amount None Respiratory Comment: pt refusing to let nurse listen to posterior lung sounds. Gastrointestinal Assessment Abdomen Description Soft Non-Tender Round 3 or more loose stools, in less than 24 No hours Nausea/Vomiting Presence None All Four Quadrants Active Flatus Presence Present Genitourinary Assessment Genitourinary Symptoms None Bladder Pattern Incontinent Incontinence Total Voiding Method Brief Bladder Distention None Suprapubic Tenderness with Palpation No Comment: No urine to assess at this time. will continue to monitor . Integumentary Assessment Nail Bed Appearance [place] Temperature Warm Moisture Dry Turgor Normal Color Normal All Pressure Points Assessed No Evidence of Incision/Wounds/Breakdown Yes: Wounds to bilat shins. Bandages dry and intact. Mucous membranes moist, pink and intact Yes Oral Cavity Normal Missing Teeth Musculoskeletal Assessment Musculoskeletal Symptoms Generalized Weakness Document 06/06/16 01:24 CBT (Rec: 06/06/16 01:35 CBT [id number]) Pain Assessment Pain Present Reports No Pain Neurological Assessment Eye Opening Spontaneous Motor Obeys Commands Verbal Oriented Coma Scale Total 15 Neurologic Status Alert Patient Orientation Person Place Time Arousable To Name Speech Pattern Garbled Rambling Mumbled Patient Behavior Appropriate Cooperative Mood Description Calm Relaxed Bilateral Pupil Reaction Reactive Pupil Size (mm) 3 Pupil [place] Equal Scleral Edema No [place] Strength Equal Bilat Weak Push/Pull Equal Bilat Weak Facial Symmetry Symmetrical Cardiovascular Assessment Signs and Symptoms Dyspnea on Exertion Leg Edema Heart Sounds S1 & S2 Pulse Rhythm Regular Jugular Vein Distention None Capillary Refill < 3 Seconds Circulatory Tenderness Description None Right Radial 2+ Left Radial 2+ Bilateral Leg Type Non-Pitting Has Confirmed Diagnosis of DVT, PE or No VTE VTE Prophylaxis SQ Treatment Mechanical Prophylaxis No Pacemaker Assessment Cardiac Comment: pt refusing tele at this time. will continue to monitor. Respiratory Assessment Respiratory Symptoms Unable to Lie Flat Shortness of Breath on Exertion Wheezing Effort Spontaneous Non-Labored Depth Normal Respiratory Pattern Regular Chest Shape Normal Expansion Symmetrical Right Upper Lobe Expiratory Wheezing Right Middle Lobe Expiratory Rhonchi Right Lower Lobe Expiratory Wheezing Left Upper Lobe Expiratory Wheezing Left Lower Lobe Expiratory Wheezing Right Upper Lobe Diminished Right Middle Lobe Diminished Right Lower Lobe Expiratory Wheezing Left Upper Lobe Diminished Left Lower Lobe Expiratory Wheezing Oxygen Delivery Method Nasal Cannula Oxygen Flow Rate (LPM) 4 FIO2 (%) (%) 36 Cough Description Non-Productive Cough Frequency Intermittent Sputum Amount None Gastrointestinal Assessment Abdomen Description Soft Non-Tender Round 3 or more loose stools, in less than 24 No hours Nausea/Vomiting Presence None All Four Quadrants Active Flatus Presence Present Genitourinary Assessment Genitourinary Symptoms None Bladder Pattern Incontinent Incontinence Total Voiding Method Brief Bladder Distention None Suprapubic Tenderness with Palpation No Integumentary Assessment Nail Bed Appearance [place] Temperature Warm Moisture Dry Turgor Normal Color Normal All Pressure Points Assessed Yes Evidence of Incision/Wounds/Breakdown Yes: Bilat shins Mucous membranes moist, pink and intact Yes Oral Cavity Missing Teeth Musculoskeletal Assessment Musculoskeletal Symptoms Generalized Weakness Document 06/06/16 01:45 WDT (Rec: 06/06/16 03:04 WDT [id number]) Pain Assessment Pain Present Reports Pain Right Lower Extremity Pain Intensity 4 Scale Used Numeric (1 - 10) Description of Site Pt unable to describe pain. Pain meds given for dressing change Pain Intervention Medication headache Pain Intensity 0 Neurological Assessment Eye Opening Spontaneous Motor Obeys Commands Verbal Oriented Coma Scale Total 15 Neurologic Status Alert Patient Orientation Person Place Time Arousable To Name Speech Pattern Garbled Rambling Mumbled Patient Behavior Appropriate Cooperative Mood Description Calm Relaxed Bilateral Pupil Reaction Reactive Pupil Size (mm) 3 Pupil [place] Equal Scleral Edema No [place] Strength Bilat Weak Push/Pull Bilat Weak Numbness/Tingling Yes: pt states "I cant feel my legs" Facial Symmetry Symmetrical Corneal Reflex Present Bilateral Blink Present Cough/Gag Normal Doll's-Eye Absent Neurological Comment: patient alert and oriented X3. No facial droop noted. Cardiovascular Assessment Signs and Symptoms Dyspnea on Exertion Leg Edema Heart Sounds S1 & S2 Pulse Rhythm Regular Jugular Vein Distention None Capillary Refill < 3 Seconds Circulatory Tenderness Description None Right Radial 2+ Left Radial 2+ Bilateral Leg Type Non-Pitting Chest Pain Complaint No Has Confirmed Diagnosis of DVT, PE or No VTE VTE Prophylaxis SQ Treatment Mechanical Prophylaxis No Pacemaker Assessment Cardiac Comment: pt refusing tele at this time. Will continue to encourage use. Respiratory Assessment Respiratory Symptoms Unable to Lie Flat Shortness of Breath on Exertion Wheezing Effort Spontaneous Non-Labored Depth Normal Respiratory Pattern Regular Chest Shape Normal Expansion Symmetrical All Lung [place] Diminished Inspiratory Wheezing Expiratory Wheezing Left Lower Lobe Inspiratory Wheezing Expiratory Wheezing Oxygen Delivery Method Nasal Cannula Oxygen Flow Rate (LPM) 4 FIO2 (%) (%) 36 Cough Description None Sputum Amount None Respiratory Comment: pt refusing to let nurse listen to posterior lung sounds. Gastrointestinal Assessment Abdomen Description Soft Non-Tender Large Round 3 or more loose stools, in less than 24 No hours Nausea/Vomiting Presence None All Four Quadrants Active Flatus Presence Present Genitourinary Assessment Genitourinary Symptoms None Bladder Pattern Incontinent Incontinence Total Voiding Method Brief Bladder Distention None Suprapubic Tenderness with Palpation No Comment: No urine to assess at this time. will continue to monitor . Integumentary Assessment Nail Bed Appearance [place] Temperature Warm Moisture Dry Turgor Normal Color Normal All Pressure Points Assessed Yes Evidence of Incision/Wounds/Breakdown Yes: Bilat shins Mucous membranes moist, pink and intact Yes Oral Cavity Missing Teeth Integumentary Comment: Bilat LE Musculoskeletal Assessment Musculoskeletal Symptoms Generalized Weakness Document 06/06/16 09:00 [id number] (Rec: 06/06/16 09:20 [id number]) Pain Assessment Pain Present Reports No Pain Neurological Assessment Eye Opening Spontaneous Motor Obeys Commands Verbal Oriented Coma Scale Total 15 Neurologic Status Alert Patient Orientation Person Place Time Arousable To Name Speech Pattern Garbled Rambling Mumbled Patient Behavior Appropriate Cooperative Mood Description Calm Relaxed Bilateral Pupil Reaction Reactive Pupil Size (mm) 3 Pupil [place] Equal Scleral Edema No [place] Strength Bilat Weak Push/Pull Bilat Weak Numbness/Tingling Yes: pt states "I cant feel my legs" Facial Symmetry Symmetrical Corneal Reflex Present Bilateral Blink Present Cough/Gag Normal Doll's-Eye Absent Neurological Comment: patient alert and oriented X3. Developemental delay. Cardiovascular Assessment Signs and Symptoms Extreme Fatigue Abdominal Edema Leg Edema Pedal Edema Heart Sounds S1 & S2 Pulse Rhythm Regular Jugular Vein Distention None Capillary Refill < 3 Seconds Circulatory Tenderness Description None Right Radial 2+ Left Radial 2+ Right Dorsalis Pedis 1+ Left Dorsalis Pedis 1+ Generalized Type Non-Pitting Bilateral Leg Type Non-Pitting Chest Pain Complaint No Has Confirmed Diagnosis of DVT, PE or No VTE VTE Prophylaxis SQ Treatment Mechanical Prophylaxis No Pacemaker Assessment Cardiac Comment: pt refusing tele at this time. Will continue to encourage use. Respiratory Assessment Respiratory Symptoms Unable to Lie Flat Wheezing Effort Spontaneous Non-Labored Depth Normal Respiratory Pattern Regular Chest Shape Normal Expansion Symmetrical Right Upper Lobe Expiratory Rhonchi Expiratory Wheezing Right Middle Lobe Expiratory Rhonchi Expiratory Wheezing Right Lower Lobe Expiratory Rhonchi Expiratory Wheezing Left Upper Lobe Inspiratory Wheezing Expiratory Wheezing Left Lower Lobe Expiratory Rhonchi Expiratory Wheezing Oxygen Delivery Method Nasal Cannula Oxygen Flow Rate (LPM) 4 FIO2 (%) (%) 36 Cough Description None Sputum Amount None Gastrointestinal Assessment Abdomen Description Non-Tender Large Round 3 or more loose stools, in less than 24 No hours Nausea/Vomiting Presence None All Four Quadrants Active Flatus Presence Present Genitourinary Assessment Genitourinary Symptoms None Bladder Pattern Incontinent Incontinence Total Voiding Method Brief Color Dark Yellow Bladder Distention None Suprapubic Tenderness with Palpation No Comment: No urine to assess at this time. will continue to monitor . Integumentary Assessment Nail Bed Appearance [place] Temperature Warm Moisture Dry Turgor Normal Color Normal All Pressure Points Assessed Yes Evidence of Incision/Wounds/Breakdown Yes: Bilat shins Mucous membranes moist, pink and intact Yes Oral Cavity Missing Teeth Integumentary Comment: Bilat LE Musculoskeletal Assessment Musculoskeletal Symptoms Generalized Weakness TAR Intake Start: 06/03/16 17: 41 Freq: Status: Discharge Document 06/03/16 17:41 BKG (Rec: 06/03/16 17:47 BKG [place] [id number]) TAR.IO Rbcs Leuko Poor As-1 Unit [id number] Intake, Blood Product Amount 0 Document 06/03/16 20:40 ARH (Rec: 06/03/16 20:42 ARH [place] [id number]) TAR.IO Rbcs Leuko Poor As-1 Unit [id number] Intake, Blood Product Amount 320 Document 06/03/16 22:23 ARH (Rec: 06/03/16 22:24 ARH [place] [id number]) TAR.IO Rbcs Leuko Poor As-1 Unit [id number] Intake, Blood Product Amount 350 Document 06/04/16 01:25 ARH (Rec: 06/04/16 01:35 ARH [place] [id number]) TAR.IO Rbcs Leuko Poor As-1 Unit [id number] Intake, Blood Product Amount 349 TAR Vital Signs Start: 06/03/16 17: 47 Freq: Status: Discharge Document 06/03/16 17:47 BKG (Rec: 06/03/16 17:48 BKG [place] [id number]) TAR Vital Signs Temperature (97.6 F-99.6 F) 98.0 F Temperature Source Oral Pulse Location Right Radial Pulse Rate 77 Rhythm Regular Strength Normal Method Palpation Respiratory Rate 16 Depth Normal Effort Normal for Patient Spontaneous Non-Labored Respiratory Pattern Regular Pulse Oximetry (95-100) 98 Blood Pressure Location Left Arm Blood Pressure 109/63 Blood Pressure Mean (mm Hg) 78 Source Automatic Cuff Position Supine Product Transfusion Rate (mls/hr) 70 Transfusion Completed?* No Document 06/03/16 18:02 BKG (Rec: 06/03/16 19:31 BKG [id number]) TAR Vital Signs Temperature (97.6 F-99.6 F) 98.8 F Temperature Source Oral Pulse Location Right Radial Pulse Rate 77 Rhythm Regular Strength Normal Method Palpation Respiratory Rate 16 Depth Normal Effort Normal for Patient Spontaneous Non-Labored Respiratory Pattern Regular Blood Pressure Location Left Arm Blood Pressure 132/84 Blood Pressure Mean (mm Hg) 100 Source Automatic Cuff Position Supine Product Transfusion Rate (mls/hr) 125 Document 06/03/16 20:42 [facility] (Rec: 06/03/16 20:45 [id number]) TAR Vital Signs Temperature (97.6 F-99.6 F) 98.3 F Temperature Source Oral Pulse Location Left Radial Pulse Rate 82 Rhythm Regular Strength Normal Method Palpation Respiratory Rate 16 Depth Normal Effort Spontaneous Non-Labored Respiratory Pattern Regular Pulse Oximetry (95-100) 99 Blood Pressure Location Left Arm Blood Pressure 157/72 Blood Pressure Mean (mm Hg) 100 Source Automatic Cuff Product Transfusion Rate (mls/hr) 125 Document 06/03/16 22:14 [facility] (Rec: 06/03/16 22:15 [id number]) TAR Vital Signs Temperature (97.6 F-99.6 F) 97.7 F Temperature Source Oral Pulse Location Left Radial Pulse Rate 86 Rhythm Regular Strength Normal Method Palpation Respiratory Rate 16 Depth Normal Effort Spontaneous Non-Labored Respiratory Pattern Regular Pulse Oximetry (95-100) 95 Blood Pressure Location Left Radial Artery Blood Pressure 147/86 Blood Pressure Mean (mm Hg) 106 Source Automatic Cuff Position HOB Elevated Product Transfusion Rate (mls/hr) 125 Document 06/03/16 22:23 [facility] (Rec: 06/03/16 22:33 [id number] TAR Vital Signs Temperature (97.6 F-99.6 F) 97.0 F L Temperature Source Oral Pulse Location Left Radial Pulse Rate 82 Rhythm Regular Strength Weak Method Palpation Respiratory Rate 16 Depth Normal Effort Spontaneous Non-Labored Respiratory Pattern Regular Pulse Oximetry (95-100) 95 Blood Pressure Location Left Radial Artery Blood Pressure 125/79 Blood Pressure Mean (mm Hg) 94 Source Automatic Cuff Position HOB Elevated Product Transfusion Rate (mls/hr) 125 Document 06/04/16 01:25 [facility]H (Rec: 06/04/16 01:37 [id number] TAR Vital Signs Temperature (97.6 F-99.6 F) 98.4 F Temperature Source Tympanic Pulse Location Left Radial Pulse Rate 78 Rhythm Regular Strength Normal Respiratory Rate 18 Depth Normal Effort Spontaneous Non-Labored Respiratory Pattern Regular Pulse Oximetry (95-100) 98 Blood Pressure Location Left Radial Artery Blood Pressure 147/84 Blood Pressure Mean (mm Hg) 105 Source Automatic Cuff Position HOB Elevated Product Transfusion Rate (mls/hr) 150 Transfusion Completed?* Yes Teaching Record Start: 06/03/16 02: 49 Freq: Q12H Status: Discharge Document 06/03/16 01:45 BMD (Rec: 06/03/16 03:19 BMD [id number]) Teaching Record: General Education Topics Medications Disease Process Hospital Environment Diet Exercise/Activity Signs/Symptoms Methods Discussion Handout Recipient Patient Family Education Provided: Details Admit packet. Educated on use of call light and POC. Document 06/03/16 09:18 BKG (Rec: 06/03/16 09:33 BKG [id number]) Teaching Record: General Education Topics Medications Disease Process Hospital Environment Diet Exercise/Activity Signs/Symptoms Methods Discussion Handout Recipient Patient Family Education Provided: Details Educated on use of call light and POC. Document 06/03/16 19:00 ARH (Rec: 06/03/16 20:26 ARH [id number]) Teaching Record: General Education Topics Medications Disease Process Hospital Environment Diet Exercise/Activity Signs/Symptoms Methods Discussion Handout Recipient Patient Family Education Provided: Details Educated on use of call light and POC, medications and testings. Document 06/04/16 09:10 TMR (Rec: 06/04/16 09:10 TMR [id number]) Teaching Record: General Education Topics Medications Disease Process Hospital Environment Diet Exercise/Activity Signs/Symptoms Response Reinforcement needed Unable to comprehend Methods Discussion Recipient Patient Document 06/04/16 20:00 KJC (Rec: 06/05/16 01:14 KJC [id number]) Teaching Record: General Education Topics Medications Hospital Environment Response Reinforcement needed Unable to comprehend Methods Discussion Recipient Patient Education Provided: Details Educated pt on HS medication. Advised use of call light system when in need of assistance. Document 06/05/16 07:51 AKC (Rec: 06/05/16 08:03 AKC [id number]) Teaching Record: General Education Topics Medications Hospital Environment Response Reinforcement needed Unable to comprehend Methods Discussion Recipient Patient Education Provided: Details discussed morning medications. also discussed the use of the call light and the need to ask for assistance before getting out of bed. Document 06/06/16 01:45 WDT (Rec: 06/06/16 03:04 WDT [id number]) Teaching Record: General Education Topics Medications Hospital Environment Response Reinforcement needed Methods Discussion Recipient Patient Education Provided: Details Discussed evening medications, poc, importance of wound care . Document 06/06/16 09:00 [id number] (Rec: 06/06/16 09:20 [id number]) Teaching Record: General Education Topics Medications Hospital Environment Response Reinforcement needed Methods Discussion Recipient Patient Education Provided: Details Discussed evening medications, poc. Triage Start: 06/02/16 21: 28 Freq: Status: Complete Document 06/02/16 21:29 NNN (Rec: 06/02/16 21:41 NNN [id number]) Triage Chief Complaint triage ED Shortness of Breath/Dyspnea Patient Stated Complaint LUCIANO CORBY 2 Description of Symptoms pt was just released from the hospital today and when he got home he had increased shortenss of breath General Appearance alert in no apparent distress Work Related Injury? No Mode of arrival EMS Arrival via EMS [facility] Source patient family EMS Limitations no limitations Ebola Risk: Travel/Contact With Anyone No From Affected Area/s Has Patient Experienced Ebola Symptoms No Temperature (97.6 F-99.6 F) 100.2 F H Temperature Source Oral Pulse Rate 91 Respiratory Rate 22 Blood Pressure 100/60 O2 Sat by Pulse Oximetry (95-100) 100 Oxygen Delivery Nasal Cannula Height 1.47 m Weight 95.255 kg Weight Measurement Method Stated by Patient Pain Scale 0 Pain Scale Used Standard (1-10) Medical history CHF dementia GERD GI bleed myocardial infarction venous stasis other Additional surgical history PMH bmt tonsil left wrist orif (child( Psychiatric history no psych history other Smoking Status Never smoker Smokeless Tobacco Status No Alcohol Use none Drug Use none Patient resides with/at Other Relative Safety Concerns Feels Safe At This Time Do you currently feel hopless, have No thoughts of self harm, or thoughts of harming others History of fall in last 14 days? No Father Family Member Living Status Still Living Hx Family Cardiac Disorders Yes: htn Hx Family Cancer Yes: thyroid ca Mother Family Member Living Status Hx Family Cardiac Disorders Yes: chf Hx Family Respiratory Disorders Yes: pneumonia Hx Family Endocrine Disorder Yes: diabetic Vital Signs Assessment Start: 06/02/16 21: 28 Freq: Status: Discharge Document 06/02/16 22:36 NNN (Rec: 06/02/16 22:38 NNN [id number]) ED Vital Signs Pain Reported No Pain Reported Pain Scale 0 Blood Pressure 102/62 Pulse Rate 92 Respiratory Rate 20 Pulse Oximetry (95-100) 98 Oxygen Delivery Nasal Cannula Oxygen Flow Rate (LPM) 4 Vital Signs Assessment Start: 06/02/16 21: 44 Freq: PROTOCOL Status: Complete Document 06/03/16 01:50 [id number] (Rec: 06/03/16 01:51 [id number]) Vital Signs with MEWS Temperature (97.6 F-99.6 F) 98.2 F Temperature Source Oral Pulse Rate 81 Respiratory Rate 18 Pulse Oximetry (95-100) 98 Oxygen Delivery Room Air Blood Pressure 126/67 Blood Pressure Location Left Arm Source Automatic Cuff Position Supine Neuro Status *recalled from last Alert documentation MEWS Score 1 Document 06/03/16 06:11 BMD (Rec: 06/03/16 06:12 BMD [id number]) Vital Signs with MEWS Temperature (97.6 F-99.6 F) 98.1 F Temperature Source Oral Pulse Rate 65 Respiratory Rate 18 Pulse Oximetry (95-100) 98 Oxygen Delivery Nasal Cannula Oxygen Flow Rate (LPM) 3 Blood Pressure 132/86 Blood Pressure Location Left Arm Source Automatic Cuff Position HOB Elevated Neuro Status *recalled from last Alert documentation MEWS Score 1 Vital Signs Assessment Start: 06/03/16 00: 29 Freq: Q4H Status: Discharge Document 06/03/16 07:19 [id number] (Rec: 06/03/16 07:20 [id number]) Vital Signs with MEWS Temperature (97.6 F-99.6 F) 97.5 F L Temperature Source Oral Pulse Rate 78 Respiratory Rate 17 Pulse Oximetry (95-100) 94 L Oxygen Delivery Nasal Cannula Oxygen Flow Rate (LPM) 3 Blood Pressure 137/89 Blood Pressure Location Left Radial Artery Source Automatic Cuff Position HOB Elevated Document 06/03/16 15:14 [id number] (Rec: 06/03/16 15:15 [id number]) Vital Signs with MEWS Temperature (97.6 F-99.6 F) 97.5 F L Temperature Source Oral Pulse Rate 87 Respiratory Rate 16 Pulse Oximetry (95-100) 99 Oxygen Delivery Nasal Cannula Oxygen Flow Rate (LPM) 3 Blood Pressure 125/85 Source Automatic Cuff Position HOB Elevated Document 06/03/16 20:28 OJJ (Rec: 06/03/16 20:28 OJJ [id number]) Vital Signs with MEWS Temperature (97.6 F-99.6 F) 98.3 F Temperature Source Oral Pulse Rate 82 Respiratory Rate 16 Pulse Oximetry (95-100) 99 Oxygen Delivery Room Air Blood Pressure 157/72 Blood Pressure Location Left Arm Source Automatic Cuff Position HOB Elevated Neuro Status *recalled from last Alert documentation MEWS Score 1 Document 06/04/16 07:45 [id number] (Rec: 06/04/16 07:45 [id number]) Vital Signs with MEWS Temperature (97.6 F-99.6 F) 97.6 F Temperature Source Oral Pulse Rate 72 Respiratory Rate 16 Pulse Oximetry (95-100) 94 L Oxygen Delivery Room Air Blood Pressure 153/89 Blood Pressure Location Left Radial Artery Source Automatic Cuff Position HOB Elevated Neuro Status *recalled from last Alert documentation MEWS Score 1 Document 06/04/16 12:46 [id number] (Rec: 06/04/16 12:47 [id number]) Vital Signs with MEWS Temperature (97.6 F-99.6 F) 99.1 F Temperature Source Oral Pulse Rate 80 Respiratory Rate 16 Pulse Oximetry (95-100) 99 Oxygen Delivery Room Air Blood Pressure 159/96 Neuro Status *recalled from last Alert documentation MEWS Score 1 Document 06/04/16 16:56 DAM (Rec: 06/04/16 16:57 DAM [id number]) Vital Signs with MEWS Temperature (97.6 F-99.6 F) 97.9 F Temperature Source Oral Pulse Rate 79 Respiratory Rate 15 Pulse Oximetry (95-100) 98 Oxygen Delivery Nasal Cannula Oxygen Flow Rate (LPM) 3 Blood Pressure 158/107 Blood Pressure Location Left Arm Source Automatic Cuff Position HOB Elevated Neuro Status *recalled from last Alert documentation MEWS Score 1 Document 06/04/16 23:28 [id number] (Rec: 06/04/16 23:28 [id number]) Vital Signs with MEWS Temperature (97.6 F-99.6 F) 98.3 F Temperature Source Oral Pulse Rate 95 Respiratory Rate 18 Pulse Oximetry (95-100) 93 L Oxygen Delivery Room Air Blood Pressure 163/100 Blood Pressure Location Left Arm Source Automatic Cuff Position Supine Neuro Status *recalled from last Alert documentation MEWS Score 1 Document 06/05/16 07:04 EAV (Rec: 06/05/16 07:11 EAV [id number]) Vital Signs with MEWS Temperature (97.6 F-99.6 F) 97.9 F Temperature Source Oral Pulse Rate 84 Respiratory Rate 20 Pulse Oximetry (95-100) 94 L Oxygen Delivery Nasal Cannula Humidified Oxygen Flow Rate (LPM) 3 Blood Pressure 125/85 Source Automatic Cuff Position HOB Elevated Neuro Status *recalled from last Alert documentation MEWS Score 1 Document 06/05/16 11:20 EAV (Rec: 06/05/16 11:20 EAV [id number]) Vital Signs with MEWS Temperature (97.6 F-99.6 F) 98.2 F Temperature Source Oral Pulse Rate 102 Respiratory Rate 18 Pulse Oximetry (95-100) 93 L Oxygen Delivery Nasal Cannula Humidified Oxygen Flow Rate (LPM) 3 Blood Pressure 123/75 Blood Pressure Location Left Radial Artery Source Automatic Cuff Position HOB Elevated Neuro Status *recalled from last Alert documentation MEWS Score 2 Document 06/05/16 15:35 EAV (Rec: 06/05/16 15:35 EAV [id number]) Vital Signs with MEWS Temperature (97.6 F-99.6 F) 97.4 F L Temperature Source Oral Pulse Rate 99 Respiratory Rate 18 Pulse Oximetry (95-100) 94 L Oxygen Delivery Nasal Cannula Humidified Oxygen Flow Rate (LPM) 3 Blood Pressure 149/98 Blood Pressure Location Left Radial Artery Source Automatic Cuff Position HOB Elevated Neuro Status *recalled from last Alert documentation MEWS Score 1 Document 06/05/16 18:38 KW (Rec: 06/05/16 18:38 KW [id number]) Vital Signs (Critical Care) Temperature (97.6 F-99.6 F) 97.4 F L Temperature Source Oral Pulse Rate 99 Respiratory Rate 18 Pulse Oximetry (95-100) 90 L Oxygen Delivery Nasal Cannula Humidified Oxygen Flow Rate (Liters) 3 Blood Pressure 149/98 Neuro Status *Recalled from last Alert documented assessment MEWS Score 1 Vital Signs with MEWS Temperature (97.6 F-99.6 F) 98.2 F Temperature Source Oral Pulse Rate 91 Respiratory Rate 18 Pulse Oximetry (95-100) 98 Oxygen Delivery Nasal Cannula Oxygen Flow Rate (LPM) 3 Blood Pressure 122/78 Blood Pressure Location Right Radial Artery Source Automatic Cuff Position Supine Neuro Status *recalled from last Alert documentation MEWS Score 1 Document 06/05/16 23:38 [id number] (Rec: 06/05/16 23:[id number]) Vital Signs with MEWS Temperature (97.6 F-99.6 F) 97.5 F L Temperature Source Oral Pulse Rate 86 Respiratory Rate 20 Pulse Oximetry (95-100) 99 Oxygen Delivery Nasal Cannula Oxygen Flow Rate (LPM) 4 Blood Pressure 117/76 Blood Pressure Location Left Arm Source Automatic Cuff Position HOB Elevated Neuro Status *recalled from last Alert documentation MEWS Score 1 Document 06/06/16 03:35 [id number] (Rec: 06/06/16 03:37 [id number]) Vital Signs with MEWS Temperature (97.6 F-99.6 F) 98.2 F Temperature Source Oral Pulse Rate 81 Respiratory Rate 20 Pulse Oximetry (95-100) 100 Oxygen Delivery Nasal Cannula Oxygen Flow Rate (LPM) 4 Blood Pressure 125/76 Blood Pressure Location Left Arm Source Automatic Cuff Position HOB Elevated Neuro Status *recalled from last Alert documentation MEWS Score 1 Document 06/06/16 07:40 JSB (Rec: 06/06/16 07:42 JSB [id number]) Vital Signs with MEWS Temperature (97.6 F-99.6 F) 98.3 F Temperature Source Oral Pulse Rate 84 Respiratory Rate 18 Pulse Oximetry (95-100) 98 Oxygen Delivery Nasal Cannula Oxygen Flow Rate (LPM) 4 Blood Pressure 120/70 Blood Pressure Location Left Arm Source Automatic Cuff Position HOB Elevated Neuro Status *recalled from last Alert documentation MEWS Score 1 Document 06/06/16 11:52 JSB (Rec: 06/06/16 11:53 JSB [id number]) Vital Signs with MEWS Temperature (97.6 F-99.6 F) 98.4 F Temperature Source Oral Pulse Rate 86 Respiratory Rate 18 Pulse Oximetry (95-100) 95 Oxygen Delivery Nasal Cannula Blood Pressure 110/73 Blood Pressure Location Left Arm Source Automatic Cuff Position HOB Elevated Neuro Status *recalled from last Alert documentation MEWS Score 1 Vital Signs Assessment Start: 06/03/16 02: 49 Freq: Q4H Status: Complete Document 06/03/16 12:02 [id number] (Rec: 06/03/16 12:04 [id number]) Vital Signs with MEWS Temperature (97.6 F-99.6 F) 97.8 F Temperature Source Oral Pulse Rate 74 Respiratory Rate 16 Pulse Oximetry (95-100) 97 Oxygen Delivery Nasal Cannula Oxygen Flow Rate (LPM) 3 Blood Pressure 150/86 Source Automatic Cuff Position HOB Elevated Document 06/04/16 04:06 TMM (Rec: 06/04/16 04:12 TMM [id number]) Vital Signs with MEWS Temperature (97.6 F-99.6 F) 98.0 F Temperature Source Oral Pulse Rate 74 Respiratory Rate 20 Pulse Oximetry (95-100) 98 Oxygen Delivery Nasal Cannula Oxygen Flow Rate (LPM) 3 Blood Pressure 129/77 Blood Pressure Location Left Radial Artery Source Automatic Cuff Position Supine Neuro Status *recalled from last Alert documentation MEWS Score 1 Wound Assessment Start: 06/03/16 02: 49 Freq: Q8H Status: Discharge Document 06/03/16 11:30 BKG (Rec: 06/03/16 14:37 BKG [id number]) Wound Assessment Right Lower Leg Wound Type cellulitis Wound Bed Appearance Beefy Red Wound Surrounding Tissue Appearance ( Dry Periwound) 1 Surrounding Tissue Temperature Warm Wound Drainage Description Bright Red Wound Drainage Amount 1 Scant Wound Drainage Odor No Odor Wound Dressing Status Dry & Intact Changed Wound Dressing Type medox, ABD, kirlex and coban Wound Dressing Change Date 06/03/16 Patient Tolerance of Procedure Tolerated Well Left Lower Leg Wound Type cellulitis Wound Bed Appearance Beefy Red Wound Surrounding Tissue Appearance ( Dry Periwound) 1 Surrounding Tissue Temperature Warm Wound Drainage Description Bright Red Wound Drainage Amount 1 Scant Wound Drainage Odor No Odor Wound Dressing Status Dry & Intact Changed Wound Dressing Type medox, ABD, kirlex and coban Wound Dressing Change Date 06/03/16 Patient Tolerance of Procedure Tolerated Well Drains Tube/Drain Discontinued No Document 06/03/16 17:49 BKG (Rec: 06/03/16 17:55 BKG [id number]) Wound Assessment Right Lower Leg Wound Type cellulitis Surrounding Tissue Temperature Warm Wound Drainage Amount 1 None Wound Drainage Odor No Odor Wound Dressing Status Dry & Intact Left Lower Leg Wound Type cellulitis Surrounding Tissue Temperature Warm Wound Drainage Amount 1 None Wound Drainage Odor No Odor Wound Dressing Status Dry & Intact Drains Tube/Drain Discontinued No Document 06/03/16 19:00 ARH (Rec: 06/03/16 20:26 ARH [id number]) Wound Assessment Right Lower Leg Wound Type cellulitus Wound Bed Appearance Beefy Red Wound Surrounding Tissue Appearance ( Dry Periwound) 1 Surrounding Tissue Temperature Warm Wound Dressing Status Dry & Intact Wound Dressing Type Gauze Pad Left Lower Leg Wound Type cellulitus Wound Surrounding Tissue Appearance ( Dry Periwound) 1 Surrounding Tissue Temperature Warm Wound Dressing Status Dry & Intact Drains Tube/Drain Discontinued No Document 06/03/16 22:30 ARH (Rec: 06/04/16 01:21 ARH [id number]) Wound Assessment Right Lower Leg Wound Type cellulitus Wound Bed Appearance Beefy Red White Wound Surrounding Tissue Appearance ( Weeping Periwound) 1 Surrounding Tissue Temperature Warm Wound Drainage Description Serosanguineous Wound Drainage Amount 1 Small Wound Drainage Odor No Odor Wound Dressing Status Changed Wound Dressing Type maxorb, abd pads, kerlex, coban Wound Dressing Change Date 06/03/16 Patient Tolerance of Procedure Tolerated Well Premedicated Prior to Dressing Change No Left Lower Leg Wound Type cellulitis Wound Bed Appearance Beefy Red White Surrounding Tissue Temperature Warm Wound Drainage Description Serosanguineous Wound Drainage Amount 1 Small Wound Drainage Odor No Odor Wound Dressing Status Changed Wound Dressing Type maxorb, abd pads, kerlex and coban Patient Tolerance of Procedure Tolerated Well Premedicated Prior to Dressing Change No Document 06/04/16 12:00 TMR (Rec: 06/04/16 12:04 TMR [id number]) Wound Assessment Right Lower Leg Wound Type Venous Ulcer Wound Bed Appearance Beefy Red Granulation Wound Surrounding Tissue Appearance ( Intact Periwound) 1 Erythematous Surrounding Tissue Temperature Warm Wound Drainage Description Serosanguineous Wound Drainage Amount 1 Moderate Wound Drainage Odor No Odor Wound Dressing Status Changed Topical Medication santyl, gent Wound Dressing Type maxorb, abd, kerlex, coband Wound Dressing Change Date 06/04/16 Patient Tolerance of Procedure Tolerated Well Premedicated Prior to Dressing Change No Left Lower Leg Wound Type Venous Ulcer Wound Bed Appearance Beefy Red Granulation Wound Surrounding Tissue Appearance ( Intact Periwound) 1 Erythematous Wound Drainage Description Serosanguineous Wound Drainage Amount 1 Moderate Wound Drainage Odor No Odor Wound Dressing Status Changed Topical Medication santyl, gent Wound Dressing Type maxorb, abd, kerlex, coband. Wound Dressing Change Date 06/04/16 Patient Tolerance of Procedure Tolerated Well Premedicated Prior to Dressing Change No Document 06/04/16 20:00 KJC (Rec: 06/05/16 01:14 KJC [id number]) Wound Assessment Right Lower Leg Wound Type Venous Ulcer Wound Bed Appearance Beefy Red [place] Yellow Surrounding Tissue Temperature Warm Wound Drainage Description Purulent Wound Drainage Amount 1 Scant Wound Drainage Odor Slight Odor Wound Dressing Status Changed Topical Medication Antibiotic Left Lower Leg Wound Type Venous Ulcer Wound Bed Appearance Beefy Red [place] Yellow Surrounding Tissue Temperature Warm Wound Drainage Description Purulent Wound Drainage Amount 1 Scant Wound Drainage Odor Slight Odor Wound Dressing Status Changed Topical Medication Antibiotic Drains Tube/Drain Discontinued No Document 06/05/16 12:32 [facility] (Rec: 06/05/16 13:01 [facility] [id number]) Wound Assessment Right Lower Leg Wound Type Venous Ulcer Wound Bed Appearance Beefy Red Wound Surrounding Tissue Appearance ( Erythematous Periwound) 1 Surrounding Tissue Temperature Warm Wound Drainage Description Purulent Wound Drainage Amount 1 Small Wound Drainage Odor Slight Odor Wound Dressing Status Dry & Intact Changed Topical Medication Antibiotic Wound Dressing Type Gauze Roll/Wrap Patient Tolerance of Procedure Tolerated Well Premedicated Prior to Dressing Change No Left Lower Leg Wound Type Venous Ulcer Wound Bed Appearance Beefy Red Wound Surrounding Tissue Appearance ( Macerated Periwound) 1 Erythematous Surrounding Tissue Temperature Warm Wound Drainage Description Purulent Wound Drainage Amount 1 Moderate Wound Drainage Odor Slight Odor Wound Dressing Status Dry & Intact Changed Topical Medication Antibiotic Wound Dressing Type Gauze Roll/Wrap Patient Tolerance of Procedure Tolerated Well Premedicated Prior to Dressing Change No Drains Tube/Drain Discontinued No Document 06/06/16 01:35 CBT (Rec: 06/06/16 01:36 CBT [id number]) Wound Assessment Right Lower Leg Wound Type Venous Ulcer Wound Dressing Status Dry & Intact Left Lower Leg Wound Type Venous Ulcer Wound Dressing Status Dry & Intact Document 06/06/16 01:45 WDT (Rec: 06/06/16 03:04 WDT [id number]) Wound Assessment Right Lower Leg Wound Type Venous Ulcer Wound Dressing Status Dry & Intact Left Lower Leg Wound Type Venous Ulcer Wound Dressing Status Dry & Intact Drains Tube/Drain Discontinued No Document 06/06/16 09:00 [id number] (Rec: 06/06/16 09:20 [id number]) Wound Assessment Right Lower Leg Wound Type Venous Ulcer Wound Dressing Status Dry & Intact Left Lower Leg Wound Type Venous Ulcer Wound Dressing Status Dry & Intact Drains Tube/Drain Discontinued No Wound Care Start: 06/05/16 12: 55 Freq: Q8-10H Status: Discharge Document 06/05/16 13:04 [facility] (Rec: 06/05/16 13:04 [facility] [id number]) Document 06/06/16 06:36 WDT (Rec: 06/06/16 06:36 WDT [id number]) Discharge Information ED Provider: Nas Wagner Status: Departed Time Seen by Provider: 06/02/16 21:29 Condition: Fair Triaged At: Emergency Discharge Date/Time: 06/03/16 01:24 Emergency Discharge Disposition: Admitted As Inpatient Clinical Impression Hypoxia HCAP (healthcare-associated pneumonia) Chronic wound of extremity Emergency Discharge Comment: Admit Intervention Last Done ED Shortness of Breath Assessment 06/02/16 21:29 Query Result Sepsis Infection Criteria Present suspected infection Sepsis SIRS Criteria RR > 20 rpm HR > 90 bpm Sepsis Organ Dysfunction Criteria none Present Sepsis Screen Sepsis Risk Sepsis Action Taken provider notified Sepsis Name of Provider Notified Mauricio Colbert Shortness Of Breath Symptoms/Complaint Shortness of Breath Shortness Of Breath Duration Constant Shortness Of Breath Severity Mild Shortness Of Breath Context Recent Illness Shortness Of Breath Improves With Oxygen Shortness Of Breath Worsens With Lying Flat Shortness Of Breath Associated Symptoms Wheezing Shortness Of Breath Treatments Prior to Oxygen Arrival Bronchodilator Respiratory Depth Normal Respiratory Effort Normal for Patient Non-Labored Respiratory Pattern Regular Tachypnea Anterior Bilateral Throughout -Breath Sounds Inspiratory Wheezing Expiratory Wheezing Cough Description Involuntary Non-Productive Cough Frequency Continuous Level Of Consciousness Awake Alert Appropriate Follows Commands Patient Orientation Person Place Time Patient Behavior Appropriate Cooperative Skin Temperature Warm Skin Moisture Dry Skin Turgor Normal ED Discharge Assessment 06/03/16 00:08 Query Result ED Discharge Disposition Admitted ED Condition on Discharge Fair Med Rec/Patient Phamracy completed? No ED Admit to 3B Bed assigned 3B24 Transported by pharmacy technician infusion Transported with oxygen Report given to Nurse Care transferred to Fermín RN Clinical Documentation Summary Provided Yes Severity scale (1-10) 0 Pain Scale Used Standard (1-10) Blood Pressure 108/65 Heart rate 90 Respiratory Rate 18 Oxygen Delivery Nasal Cannula Pulse Oximetry Reading 97 Critical Care Minutes 0 Inpatient Discharge Date/Time: 06/06/16 16:20 Inpatient Discharge Disposition: Transfer SNF Inpatient Discharge Comment: Observation Discharge Date/Time: Observation Discharge Disposition: Observation Discharge Comment: Instructions: Stand-Alone Forms: Prescriptions: Ipratropium/Albuterol Neb [Duoneb] Ira Jon Alve Visit Report - Forms: - Referrals: Francisco Terrazas DPM (Partnered Physician) - 06/14/16 1: 45 pm Radiology Results Videofluoroscopic Swallow 06/05/16 08:12 IMPRESSION: Swallowing mechanism grossly within normal limits without evidence of aspiration. Please see separate speech pathology report for full discussion of findings and recommendations. D/ / Lisandro Og MD / Lisandro Og MD Interpreting Provider: Lisandro Og MD Chest X-Ray 06/05/16 10:15 IMPRESSION: New airspace opacities in left lung suspicious for pneumonia. D/ / Radha Espinal MD / Radha Espinal MD Interpreting Provider: Radha Espinal MD
[2016-06-03 03:58] LABS: VBG HCO3 33.7 mEq/L (21-27); VBG PH 7.38 pH Units (7.32-7.42)
[2016-06-03 04:10] LABS: Magnesium 2.2 mg/dL (1.6-2.6); Phosphorous 3.7 mg/dL (2.3-4.7)
[2016-06-03] MEDS: Ipratropium/Albuterol Neb 3 ML IH SCH ×4 (05:11→20:49)
[2016-06-03] MEDS ORDERED: VANCOMYCIN HCL IN DEXTROSE 5% IV SCH (06:00)
[2016-06-03] MEDS ORDERED: [UNRECOGNIZED DRUG - OTHER] IV SCH (06:00)
[2016-06-03] MEDS ORDERED: Bumetanide 1 MG/4 ML VIAL IVP STA (06:12)
[2016-06-03] MEDS ORDERED: Acetaminophen 325 MG TABLET PO ONE (06:12)
[2016-06-03] MEDS: Vancomycin 1,000 MG in D5% in Water 250 ML IVPB SCH (06:15)
[2016-06-03] MEDS ORDERED: MethylPREDNISolone 40 MG/ML VIAL IVP STA (06:16)
[2016-06-03] MEDS: *HR* Enoxaparin 40 MG/0.4 ML SYRINGE SQ SCH (06:55)
[2016-06-03] MEDS: Famotidine 20 MG TABLET PO SCH ×2 (08:00→21:05)
[2016-06-03] MEDS: Multivit/Ca/Min/Fe/FA 1 TAB TABLET PO SCH (08:00)
[2016-06-03] MEDS: Furosemide 20 MG TABLET PO SCH ×2 (08:01→17:17)
[2016-06-03] MEDS: Lactobacillus 1 EACH CAP.SPRINK PO SCH ×2 (08:01→21:05)
[2016-06-03] MEDS: Ascorbic Acid 500 MG TABLET PO SCH (08:01)
[2016-06-03] MEDS: Folic Acid 1 MG TABLET PO SCH (08:01)
[2016-06-03] MEDS: Zinc Sulfate 220 MG CAPSULE PO SCH (08:01)
[2016-06-03] MEDS ORDERED: predniSONE 20 MG TABLET PO SCH (09:00)
[2016-06-03] MEDS ORDERED: NON-FORMULARY MEDICATION 1 EACH EACH (Cefepime Hcl/D5w [Cefepime-Dextrose 2 Gm/50 Ml] 2 GM IV SCH (09:00)
[2016-06-03] MEDS: 0.9 % Sodium Chloride 1,000 ML IVC SCH (09:00)
[2016-06-03] MEDS: Cefepime HCl 2,000 MG in D5% in Water 100 ML IVPB SCH (09:27)
[2016-06-03] MEDS: Gentamicin Oint 15 GM TUBE TP SCH ×2 (10:59→22:30)
[2016-06-03] MEDS: MethylPREDNISolone 40 MG/ML VIAL IVP SCH ×2 (11:51→17:18)
--- NOTE | 2016-06-03 15:45 | Internal Med Progress Note ---
<Aaron Rocha - Last Filed: 06/03/16 16:04> Date of Encounter: 06/03/16 Time of Encounter: 10:15 - Assessment and plan (1) Chronic wound of extremity Current Visit: Yes Status: Acute Assessment and plan: Patient was readmitted as he has muscular deconditioning and his sister is unable to care for him at home. I discussed the case on previous admission with Dr. Terrazas at length. He dose not think this is Osteomyelitis. however since that time he has had an increase in his ESR. CT and MRI of the lower extremities have suggested possible osteomyelitis in the bilateral tibias. currently he is on Vancomycin and Cefipime. Ultimately plan will be to get him to [facility] or [place] for second opinion and possible skin grafting. (2) Anemia Current Visit: Yes Status: Acute Assessment and plan: Iron deficient with Ferritin of 18 Will hold off on IV iron with infection. Will continue oral iron supplementation. Chronic infection is likely contributing as well. Recent B12 was normal. Last colonoscopy was in 2014 which showed no bleeding at that time. No active bleeding at this time Qualifiers: Qualified Code(s): D64.9 - Anemia, unspecified (3) Prader-Willi syndrome Current Visit: Yes Status: Acute (4) Obesity Current Visit: Yes Status: Acute Assessment and plan: advise weight loss Qualifiers: Qualified Code(s): E66.9 - Obesity, unspecified (5) Muscular deconditioning Current Visit: Yes Status: Acute Assessment and plan: PT/OT (6) Hypoxemia Current Visit: Yes Status: Acute Assessment and plan: Likley from Pulmonary hypertension. Cotninue O2 as needed. Continue antibiotics for recent aspiration on last hospitalization. (7) Pulmonary hypertension Current Visit: Yes Status: Acute Assessment and plan: We will attempt to emperically treat him with CPAP. I am not sure that he will tolerate this. I have asked to try nasal CPAP. Will need follow up with pulmonology. If unable to tolerate CPAP may evertually need referral to ENT. (8) JOHN (obstructive sleep apnea) Current Visit: Yes Status: Acute Assessment and plan: as stated above (9) DVT prophylaxis Current Visit: Yes Status: Acute Assessment and plan: On Lovenox - Subjective Interval history: Patient is a poor historian He has no complaints or concerns at this time. - Constitutional Vitals: Temp Pulse Resp BP Pulse Ox 97.5 F L 87 16 125/85 99 06/03/16 15:14 06/03/16 15:14 06/03/16 15:14 06/03/16 15:14 06/03/16 15:14 General appearance: Present: A&O X 2, mild distress, morbidly obese. Absent: cooperative, disheveled - Head Head exam: Present: atraumatic, normocephalic - Eye Eye exam: Present: PERRL, conjuntiva pink, sclera anicteric Pupils: Present: PERRL - Neck Neck exam general surgery: Present: supple, trachea midline. Absent: lymphadenopathy - Respiratory Respiratory exam: Present: CTAB. Absent: accessory muscle use, rales, rhonchi, wheezes - Cardiovascular Cardiovascular exam: Present: RRR, +S1, +S2. Absent: diastolic murmur, gallop, rubs, systolic murmur - GI/Abdominal GI/Abdominal exam: Present: normal bowel sounds, soft, no peritoneal signs. Absent: distended, tenderness Additional comments: obese - Extremities Exam Extremities exam: Present: warm, radial pulses palpable and symetrical. Absent : calf tenderness, cyanotic, pedal edema Additional comments: well dressed. no shadowing. small hands and feet. 2+ edema of the lower extremities to the level of the thigh Internal Medicine: Result - Labs CBC & Chem 7: 06/02/16 22:01 06/02/16 22:01 Labs: Cardiac Enzymes 06/03/16 Range/Units 03:45 Troponin I 0.00 (0-0.03) ng/mL - VTE Documentation of Mechanical Device: Intermittent pneumatic compression device Consult Discharge Plan - Plan Referrals: Evgeny Griffith MD [Primary Care Provider] - <Max Clancy - Last Filed: 06/03/16 16:14> Date of Encounter: 06/03/16 - Constitutional Vitals: Temp Pulse Resp BP Pulse Ox 97.5 F L 87 16 125/85 100 06/03/16 15:14 06/03/16 15:14 06/03/16 15:59 06/03/16 15:14 06/03/16 15:59 Internal Medicine: Result - Labs CBC & Chem 7: 06/02/16 22:01 06/02/16 22:01 Labs: Cardiac Enzymes 06/03/16 06/03/16 Range/Units 03:45 15:30 Troponin I 0.00 0.00 (0-0.03) ng/mL - Attending Attestation I examined this patient and my medical decision-making was reviewed with the BALLER TENDER/PA/Advanced Practice Nurse/Resident Physician. I agree with the documented findings, disposition and treatment plan as described except to the extent set forth below. Agree with Dr. Rocha. Continue iv antibiotics. Monitor vanc levels. Avoid fluid overload.
[2016-06-03] MEDS ORDERED: 0.9 % Sodium Chloride 250 ML ONE ×2 (17:13→21:35)
[2016-06-03] MEDS ORDERED: Vancomycin 750 MG in D5% in Water (Mini-Bag+) 100 ML IVPB SCH (18:00)
[2016-06-03] MEDS: Petrolatum, white 28.35 GM TUBE TP SCH (20:45)
[2016-06-03] MEDS: Furosemide 20 MG/2 ML VIAL IVP SCH (21:05)
[2016-06-04] MEDS: Petrolatum, white 28.35 GM TUBE TP SCH ×2 (01:14→09:06)
[2016-06-04] MEDS ORDERED: Furosemide 20 MG/2 ML VIAL IVP ONE (01:45)
[2016-06-04] MEDS: Vancomycin 1,000 MG in D5% in Water 250 ML IVPB SCH ×3 (01:50→12:14)
[2016-06-04] MEDS: Furosemide 20 MG/2 ML VIAL IVP SCH (01:50)
[2016-06-04] MEDS: MethylPREDNISolone 40 MG/ML VIAL IVP SCH ×2 (01:50→06:29)
[2016-06-04] MEDS: Acetaminophen 325 MG TABLET PO PRN (04:12)
[2016-06-04] MEDS: Cefepime HCl 2,000 MG in D5% in Water 100 ML IVPB SCH ×3 (04:13→07:20)
[2016-06-04 04:47] LABS: Basophils % 0.1 %; Hematocrit 36.2 % (37.5-50.1); Immature Granulocytes % 1.8 % (0-4); Lymphocytes # 0.9 K/mcL (0.6-4.6); Lymphocytes % 10.9 %; Mean Corpuscular HGB Conc 29.3 g/dL (31.6-35.5); Mean Corpuscular Hemoglobin 24.8 pg (28.0-33.3); Mean Corpuscular Volume 84.8 fL (83.0-100.0); Monocytes # 0.6 K/mcL (0.0-1.3); Monocytes % 8.1 %; Neutrophils # 6.2 K/mcL (1.6-8.9); Platelet Count 377 K/mcL (140-400); Red Blood Count 4.27 M/mcL (4.19-5.50); Red Cell Distribution Width 18.1 % (11.5-14.5); Segmented Neutrophils % 79.1 %
[2016-06-04 04:54] LABS: Hemoglobin 10.6 g/dL (12.9-16.9)
[2016-06-04] MEDS: Ipratropium/Albuterol Neb 3 ML IH SCH ×3 (05:02→17:11)
[2016-06-04] MEDS: *HR* Enoxaparin 40 MG/0.4 ML SYRINGE SQ SCH (06:29)
[2016-06-04] MEDS: Zinc Sulfate 220 MG CAPSULE PO SCH (09:01)
[2016-06-04] MEDS: Furosemide 20 MG TABLET PO SCH ×2 (09:01→17:11)
[2016-06-04] MEDS: Famotidine 20 MG TABLET PO SCH (09:01)
[2016-06-04] MEDS: Multivit/Ca/Min/Fe/FA 1 TAB TABLET PO SCH (09:01)
[2016-06-04] MEDS: Ascorbic Acid 500 MG TABLET PO SCH (09:01)
[2016-06-04] MEDS: Folic Acid 1 MG TABLET PO SCH (09:01)
[2016-06-04] MEDS: Lactobacillus 1 EACH CAP.SPRINK PO SCH (09:01)
[2016-06-04] MEDS: Gentamicin Oint 15 GM TUBE TP SCH (09:02)
[2016-06-04] MEDS: 0.9 % Sodium Chloride 1,000 ML IVC SCH (12:06)
--- NOTE | 2016-06-04 15:39 | Internal Med Progress Note ---
<Aaron Rocha - Last Filed: 06/04/16 15:48> Date of Encounter: 06/04/16 Time of Encounter: 11:25 - Assessment and plan (1) Chronic wound of extremity Current Visit: Yes Status: Acute Assessment and plan: Patient was readmitted as he has muscular deconditioning and his sister is unable to care for him at home. I discussed the case on previous admission with Dr. Terrazas at length. He dose not think this is Osteomyelitis. however since that time he has had an increase in his ESR. CT and MRI of the lower extremities have suggested possible osteomyelitis in the bilateral tibias. currently he is on Vancomycin and Cefipime. Ultimately plan will be to get him to [facility] or [place] for second opinion and possible skin grafting. 06/04/16 Patient stable. Afebrile. Continue Vancomycin and cefepime. check vancomycin trough (2) Anemia Current Visit: Yes Status: Acute Assessment and plan: Iron deficient with Ferritin of 18 Will hold off on IV iron with infection. Will continue oral iron supplementation. Chronic infection is likely contributing as well. Recent B12 was normal. Last colonoscopy was in 2014 which showed no bleeding at that time. No active bleeding at this time 06/04/16 patient recieved 2 units PRBC. Hg chhaya appropriately. Qualifiers: Qualified Code(s): D64.9 - Anemia, unspecified (3) Prader-Willi syndrome Current Visit: Yes Status: Acute (4) Obesity Current Visit: Yes Status: Acute Assessment and plan: advise weight loss Qualifiers: Qualified Code(s): E66.9 - Obesity, unspecified (5) Muscular deconditioning Current Visit: Yes Status: Acute Assessment and plan: PT/OT Up to chair TID. (6) Hypoxemia Current Visit: Yes Status: Acute Assessment and plan: Likley from Pulmonary hypertension. Cotninue O2 as needed. Continue antibiotics for recent aspiration on last hospitalization. DC steroids. He has no clinical features of AECOPD or reactive airway disease at this time. (7) Pulmonary hypertension Current Visit: Yes Status: Acute Assessment and plan: I think the etiology is likely from John as 70 % of patients with prader willi syndrome have sleep disorder breathing. We will attempt to emperically treat him with CPAP. I am not sure that he will tolerate this. I have asked to try nasal CPAP. Will need follow up with pulmonology. If unable to tolerate CPAP may evertually need referral to ENT. (8) JOHN (obstructive sleep apnea) Current Visit: Yes Status: Acute Assessment and plan: as stated above If unable to tolerate CPAP may need ENT consult. (9) Cor pulmonale Current Visit: Yes Status: Acute Assessment and plan: suspected. Severe pulmonary hypertension dilated Right atrium Peripheral edema. I thin the underlying cause is likely sleep- breathing disorder. treatment as stated above. (10) Edema Current Visit: Yes Status: Chronic Assessment and plan: continue lasix Qualifiers: Qualified Code(s): R60.9 - Edema, unspecified (11) DVT prophylaxis Current Visit: Yes Status: Acute Assessment and plan: On Lovenox - Subjective Interval history: Patient is a poor historian He has no complaints or concerns at this time. denies pain or discomfort. denies dyspnea. denies abdominal pain. - Constitutional Vitals: Temp Pulse Resp BP Pulse Ox 99.1 F 80 16 159/96 99 06/04/16 12:46 06/04/16 12:46 06/04/16 12:46 06/04/16 12:46 06/04/16 12:46 General appearance: Present: A&O X 2, mild distress, morbidly obese. Absent: cooperative, disheveled - Head Head exam: Present: atraumatic, normal inspection, normocephalic - Eye Eye exam: Present: PERRL, conjuntiva pink, sclera anicteric Pupils: Present: PERRL - Neck Neck exam general surgery: Present: supple, trachea midline. Absent: lymphadenopathy - Respiratory Respiratory exam: Present: CTAB. Absent: accessory muscle use, rales, rhonchi, wheezes - Cardiovascular Cardiovascular exam: Present: RRR, +S1, +S2. Absent: diastolic murmur, gallop, rubs, systolic murmur - GI/Abdominal GI/Abdominal exam: Present: normal bowel sounds, soft, no peritoneal signs. Absent: distended, tenderness Additional comments: obese - Extremities Exam Extremities exam: Present: warm, radial pulses palpable and symetrical. Absent : calf tenderness, cyanotic, pedal edema Additional comments: Lower extremites are clean and well dressed. small hands and feet. Internal Medicine: Result - Labs CBC & Chem 7: 06/04/16 04:05 06/02/16 22:01 Labs: Short CBC 06/04/16 Range/Units 04:05 WBC 7.8 D (4.3-11.1) K/mcL Hgb 10.6 L D (12.9-16.9) g/dL Hct 36.2 L (37.5-50.1) % Plt Count 377 (140-400) K/mcL Neutrophils # 6.2 (1.6-8.9) K/mcL Cardiac Enzymes 06/03/16 Range/Units 15:30 Troponin I 0.00 (0-0.03) ng/mL - VTE Documentation of Mechanical Device: Intermittent pneumatic compression device Consult Discharge Plan - Plan Referrals: Evgeny Griffith MD [Primary Care Provider] - <Max Clancy - Last Filed: 06/04/16 16:06> Date of Encounter: 06/04/16 - Constitutional Vitals: Temp Pulse Resp BP Pulse Ox 99.1 F 80 16 159/96 99 06/04/16 12:46 06/04/16 12:46 06/04/16 12:46 06/04/16 12:46 06/04/16 12:46 Internal Medicine: Result - Labs CBC & Chem 7: 06/04/16 04:05 06/02/16 22:01 Labs: Short CBC 06/04/16 Range/Units 04:05 WBC 7.8 D (4.3-11.1) K/mcL Hgb 10.6 L D (12.9-16.9) g/dL Hct 36.2 L (37.5-50.1) % Plt Count 377 (140-400) K/mcL Neutrophils # 6.2 (1.6-8.9) K/mcL - Attending Attestation I examined this patient and my medical decision-making was reviewed with the FIRE ALARM TECHNICIAN/PA/Advanced Practice Nurse/Resident Physician. I agree with the documented findings, disposition and treatment plan as described except to the extent set forth below. Mr. Sow was seen and examined in grounds. Continue with IV antibiotics. Evaluation by physical therapy. Possible placement to extended care facility tomorrow for continuity of IV antibiotics.
[2016-06-04] MEDS: *HR* OxyCODONE Immed Rel 5 MG TABLET PO PRN (17:11)
[2016-06-05] MEDS: Ipratropium/Albuterol Neb 3 ML IH SCH ×5 (00:11→22:41)
[2016-06-05] MEDS: Gentamicin Oint 15 GM TUBE TP SCH ×3 (01:01→22:35)
[2016-06-05] MEDS: Cefepime HCl 2,000 MG in D5% in Water 100 ML IVPB SCH ×3 (01:01→22:29)
[2016-06-05] MEDS: Famotidine 20 MG TABLET PO SCH ×3 (01:01→22:34)
[2016-06-05] MEDS: Lactobacillus 1 EACH CAP.SPRINK PO SCH ×3 (01:01→22:34)
[2016-06-05] MEDS: Petrolatum, white 28.35 GM TUBE TP SCH ×3 (01:02→22:35)
[2016-06-05] MEDS: Vancomycin 1,000 MG in D5% in Water 250 ML IVPB SCH (01:03)
[2016-06-05] MEDS ORDERED: Ondansetron 4 MG/2 ML VIAL IVP ONE (02:24)
[2016-06-05 04:44] LABS: Basophils % 0.4 %; Eosinophils % 0.1 %; Hematocrit 35.6 % (37.5-50.1); Hemoglobin 10.2 g/dL (12.9-16.9); Immature Granulocytes % 3.3 % (0-4); Lymphocytes # 1.4 K/mcL (0.6-4.6); Lymphocytes % 13.8 %; Mean Corpuscular HGB Conc 28.7 g/dL (31.6-35.5); Mean Corpuscular Hemoglobin 25.2 pg (28.0-33.3); Mean Corpuscular Volume 87.9 fL (83.0-100.0); Mean Platelet Volume 9.4 fL (9.4-12.4); Monocytes # 1.5 K/mcL (0.0-1.3); Monocytes % 14.9 %; Neutrophils # 6.6 K/mcL (1.6-8.9); Platelet Count 397 K/mcL (140-400); Red Blood Count 4.05 M/mcL (4.19-5.50); Segmented Neutrophils % 67.5 %
[2016-06-05 05:01] LABS: BUN/Creatinine Ratio 41 (6-26); Carbon Dioxide 31 mEq/L (19-29); Chloride 106 mEq/L (98-109); Glucose 106 mg/dL (70-99); Osmolality,Calculated 305 (280-300); Potassium 4.5 mEq/L (3.5-4.5); Sodium 144 mEq/L (136-145); eGFR For African Americans > 60 (> 60); eGFR For Non-African Americans > 60 (> 60)
[2016-06-05 05:16] LABS: Blood Urea Nitrogen 32 mg/dL (8-26)
[2016-06-05] MEDS: *HR* Enoxaparin 40 MG/0.4 ML SYRINGE SQ SCH (06:47)
[2016-06-05] MEDS: 0.9 % Sodium Chloride 1,000 ML IVC SCH (06:48)
--- NOTE | 2016-06-05 07:05 | Electrocardiograph Report ---
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
[2016-06-05] MEDS: Ascorbic Acid 500 MG TABLET PO SCH (07:37)
[2016-06-05] MEDS: Zinc Sulfate 220 MG CAPSULE PO SCH (07:38)
[2016-06-05] MEDS: Furosemide 20 MG TABLET PO SCH ×2 (07:38→16:40)
[2016-06-05] MEDS: Multivit/Ca/Min/Fe/FA 1 TAB TABLET PO SCH (07:38)
[2016-06-05] MEDS: Folic Acid 1 MG TABLET PO SCH (07:38)
[2016-06-05] MEDS: Acetaminophen 325 MG TABLET PO PRN ×2 (07:50→16:53)
[2016-06-05] MEDS: Vancomycin 750 MG in D5% in Water 250 ML IVPB SCH (13:17)
--- NOTE | 2016-06-05 18:56 | Discharge Summary ---
<Ira Jon - Last Filed: 06/05/16 18:53> Date of Encounter: 06/05/16 Time of Encounter: 12:00 - Discharge Medications Prescriptions: Albuterol Neb [Proventil Neb] 2.5 mg IH Q2H PRN 30 Days PRN Reason: Shortness Of Breath/Wheezing Ipratropium/Albuterol Neb [Duoneb] 3 ml IH QIDR 30 Days Home Medications: Multivitamin [Multi-Day Vitamins] 1 each PO DAILY 01/07/16 [History] Ascorbic Acid [Vitamin C] 500 mg PO DAILY #30 tablet 01/09/16 [Rx] Folic Acid 0.4 mg PO DAILY #30 tablet 01/09/16 [Rx] Ferrous Gluconate 324 mg PO BID #60 tablet 02/15/16 [Rx] Collagenase Oint [Santyl] 1 appl TP BID 05/23/16 [History] Gentamicin Oint [Garamycin] 1 appl TP BID 05/23/16 [History] Vancomycin HCl in Dextrose 5 % [Vancomycin 1 Gram/250 ml-D5w] 1 gm IV Q12HR 14 Days 05/31/16 [Rx] Acetaminophen [Tylenol] 650 mg PO Q6HR PRN #0 tablet 06/01/16 [Rx] Cefepime HCl/D5w [Cefepime-Dextrose 2 gm/50 ml] 2 gm IV BID 14 Days 06/01/16 [Rx ] Docusate [Colace] 100 mg PO BID PRN #0 capsule 06/01/16 [Rx] Famotidine [Pepcid] 20 mg PO BID tablet 06/01/16 [Rx] Furosemide [Lasix] 20 mg PO BIDDIURETIC #60 tablet 06/01/16 [Rx] Gentamicin Oint [Garamycin] 1 appl TP DAILY #1 tube 06/01/16 [Rx] Lactobacillus [Culturelle] 1 each PO BID cap.sprink 06/01/16 [Rx] Petrolatum, white [Vaseline] 1 appl TP BID oint.pack 06/01/16 [Rx] Potassium Chloride 20 meq PO DAILY #30 tab.er.prt 06/01/16 [Rx] Zinc Sulfate 220 mg PO DAILY capsule 06/01/16 [Rx] Albuterol Sulfate [Albuterol Inhaler] 2 puff IH Q4HR #1 hfa.aer.ad 06/02/16 [Rx] Albuterol Neb [Proventil Neb] 2.5 mg IH Q2H PRN 30 Days 06/05/16 [Rx] Ipratropium/Albuterol Neb [Duoneb] 3 ml IH QIDR 30 Days 06/05/16 [Rx] Allergies/Adverse Reactions: Allergies cephalexin [From Keflex] Allergy (Verified 03/14/16 16:16) See Comments Pt unsure of reaction. chlorpromazine [From Thorazine] Allergy (Verified 03/14/16 16:16) See Comments [place] Allergy (Verified 05/29/16 17:34) See Comments Beans Allergy (Uncoded 05/29/16 17:34) See Comments Date of admission: 06/05/16 09:01 Primary care physician: Evgeny Griffith MD Discharging clinician: Max Clancy Anticipated date of discharge: 06/05/16 - Patient Status Disposition: Transfer SNF Condition: Fair Overall status at discharge: patient is progressing back to baseline - Discharge Instructions Follow Up With: Evgeny Griffith MD [Primary Care Provider] - - Diet and Activity Activity: as per physical therapy Diet: low salt diet Hospital course: Mr. Junior is a 46 year old male who initially presented to [facility] on 05/22/16 with shortness of breath and deterioration of leg wounds. Patient was previously seen at [facility] 05/17/16 and diagnosed with severe sepsis due to pneumonia and osteomyelitis. He was then transferred to [facility] for wound management and discharged to home on 05/22/16 on oral antibiotics. Patient returned to [facility] in the afternoon on 05/22/16 due to inability to use his legs. Legs were weeping and painful. Patient was admitted and treated for sepsis. CXR on 05/22/16 revealed interstitial perihilar opacities compatible with pulmonary vascular redistribution and interstitial pulmonary edema, mild cardiomegaly. CT 05/23/16 demonstrated infiltration of subcutaneous tissues in lower chest and upper abdomen left greater than right suggesting edema/ anasarca. CTA 05/24/16 demonstrated new patchy airspace disease in RUL with concern for aspiration PNA. Patient has chronic lower leg wounds that have been present for [address] Right lower extremity demonstrated thickening and sclerosis of the anterior tibial cortex with subtle indistinctness, small right knee joint effusion, no drainable fluid collection. CT left lower extremity demonstrated thickening and sclerosis of the posteromedial tibial cortex with subtle indistinctness, small left knee joint effusion, no drainable fluid collection. These findings were comparable to MRIs of bilateral lower extremities performed on 05/18/16. CT findings are comparable to MRI performed . ESR was 16 on hospital admission and increased to greater than 130 on hospital day 6. CT findings and ESR elevation were concerning for osteomyelitis. Patient was discharged to home on 06/02/16, but was unable to be cared for at home due deconditioning from multiple days in hospital. Patient will benefit from SNF for treatment of chronic leg wounds, aspiration pneumonia, and PT/OT services. Patient is being treated with IV Vancomycin and Cefepime. ESR is trending down. Patient will benefit from IV antibiotics following discharge given patient's previous treatment failure for pneumonia and lower extremity ulcers. - Time Spent with Patient Total time spent providing and/or coordinating discharge services: Greater than 30 minutes (60 minutes including time with patient and coordinating care) - Constitutional Vitals: Temp Pulse Resp BP Pulse Ox 98.2 F 91 18 122/78 98 06/05/16 18:38 06/05/16 18:38 06/05/16 18:38 06/05/16 18:38 06/05/16 18:38 General appearance: Present: A&O X 2, mild distress, morbidly obese. Absent: cooperative, disheveled - Head Head exam: Present: atraumatic, normocephalic - Eye Eye exam: Present: PERRL, sclera anicteric Pupils: Present: PERRL - Neck Neck exam general surgery: Present: supple, trachea midline. Absent: lymphadenopathy - Respiratory Respiratory exam: Present: wheezes (diffuse wheezing in all lung louise). Absent: accessory muscle use, rales, rhonchi - Cardiovascular Cardiovascular exam: Present: RRR, +S1, +S2. Absent: diastolic murmur, gallop, rubs, systolic murmur - GI/Abdominal GI/Abdominal exam: Present: normal bowel sounds, soft, no peritoneal signs. Absent: distended, tenderness - Extremities Exam Extremities exam: Present: calf tenderness (due to lower leg ulcers), pedal edema (2+ tense, non-pitting edema), warm, radial pulses palpable and symetrical. Absent: cyanotic Additional comments: Bilateral lower extremities with bandages in place to lower legs Bilateral upper legs with 2+ pitting edema and erythema - Neurological Exam Neurological exam: Present: CN II-XII intact, oriented X3, no focal deficits. Absent: pronater drift, facial droop, speech deficit - Skin Skin exam: Present: dry, intact - VTE Documentation of Mechanical Device: Intermittent pneumatic compression device - Attending Attestation I examined this patient and my medical decision-making was reviewed with the POWERSAW SUPERVISOR/PA/Advanced Practice Nurse/Resident Physician. I agree with the documented findings, disposition and treatment plan as described except to the extent set forth below. <Max Clancy R - Last Filed: 06/05/16 19:14> Date of Encounter: 06/05/16 Date of admission: 06/05/16 09:01 Primary care physician: Evgeny Griffith MD Hospital course: Mr. Junior is a 46 year old male - Time Spent with Patient Total time spent providing and/or coordinating discharge services: - Constitutional Vitals: Temp Pulse Resp BP Pulse Ox 98.2 F 91 18 122/78 98 06/05/16 18:38 06/05/16 18:38 06/05/16 18:38 06/05/16 18:38 06/05/16 18:38 - Attending Attestation I examined this patient and my medical decision-making was reviewed with the POWERSAW SUPERVISOR/PA/Advanced Practice Nurse/Resident Physician. I agree with the documented findings, disposition and treatment plan as described except to the extent set forth below. 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 On IV antibiotics for aspiration pneumonia and wounds in lower extremity. Patient follows up with Dr. Terrazas since the last couple of years. As per Dr. Terrazas, there is no chance that the patient has osteomyelitis, however he has elevated ESR and CRP poor nutritional status, chronic ulcers and CT findings are concerning. He was accepted at rehabilitation for further IV antibiotic therapy, however we decided to transfer the patient to [facility] in [place] for further management and recommendations including possibility of an evaluation for suspected osteomyelitis and management and workup of his severe pulmonary hypertension. His sister is the main salesperson hosiery. The transfer to [place] has been accepted.
--- NOTE | 2016-06-05 19:17 | Physician Discharge Referral ---
Addendum entered and electronically signed by Zhang Busch DO 10:55: Patient will also need OT. Original Note: <Ira Jon - Last Filed: 06/05/16 19:14> ExtendedCare Referral Info Transfer To: SNF Provider in Charge: Max Clancy MD Provider in Charge after Transfer: PCP Institutional Level of Care: Skilled - Diagnosis (1) Chronic wound of extremity Priority: Primary Status: Acute (2) Edema Priority: Secondary Status: Chronic (3) Hypoxemia Priority: Primary Status: Acute (4) Aspiration into respiratory tract Priority: Primary Status: Acute (5) Pneumonia Priority: Primary Status: Acute (6) Anemia Priority: Secondary Status: Chronic (7) Pulmonary hypertension Priority: Primary Status: Acute (8) JOHN (obstructive sleep apnea) Priority: Primary Status: Acute (9) Cor pulmonale Priority: Primary Status: Acute (10) Muscular deconditioning Priority: Secondary Status: Chronic (11) Obesity Priority: Secondary Status: Chronic (12) Prader-Willi syndrome Priority: Secondary Status: Chronic (13) DVT prophylaxis Priority: Secondary Status: Acute Expected Duration of Placement: 1 month Prognosis: Good Aware of Diagnosis: Patient Aware of Prognosis: Family - Transfer Medications Prescriptions: Albuterol Neb [Proventil Neb] 2.5 mg IH Q2H PRN 30 Days PRN Reason: Shortness Of Breath/Wheezing Ipratropium/Albuterol Neb [Duoneb] 3 ml IH QIDR 30 Days Vancomycin HCl in Dextrose 5 % [Vancomycin 750 mg/150 ml Bag] 750 mg IV Q12H # 14 froz.piggy Home Medications: Multivitamin [Multi-Day Vitamins] 1 each PO DAILY 01/07/16 [History] Ascorbic Acid [Vitamin C] 500 mg PO DAILY #30 tablet 01/09/16 [Rx] Folic Acid 0.4 mg PO DAILY #30 tablet 01/09/16 [Rx] Ferrous Gluconate 324 mg PO BID #60 tablet 02/15/16 [Rx] Collagenase Oint [Santyl] 1 appl TP BID 05/23/16 [History] Gentamicin Oint [Garamycin] 1 appl TP BID 05/23/16 [History] Vancomycin HCl in Dextrose 5 % [Vancomycin 1 Gram/250 ml-D5w] 1 gm IV Q12HR 14 Days 05/31/16 [Rx] Acetaminophen [Tylenol] 650 mg PO Q6HR PRN #0 tablet 06/01/16 [Rx] Cefepime HCl/D5w [Cefepime-Dextrose 2 gm/50 ml] 2 gm IV BID 14 Days 06/01/16 [Rx ] Docusate [Colace] 100 mg PO BID PRN #0 capsule 06/01/16 [Rx] Famotidine [Pepcid] 20 mg PO BID tablet 06/01/16 [Rx] Furosemide [Lasix] 20 mg PO BIDDIURETIC #60 tablet 06/01/16 [Rx] Gentamicin Oint [Garamycin] 1 appl TP DAILY #1 tube 06/01/16 [Rx] Lactobacillus [Culturelle] 1 each PO BID cap.sprink 06/01/16 [Rx] Petrolatum, white [Vaseline] 1 appl TP BID oint.pack 06/01/16 [Rx] Potassium Chloride 20 meq PO DAILY #30 tab.er.prt 06/01/16 [Rx] Zinc Sulfate 220 mg PO DAILY capsule 06/01/16 [Rx] Albuterol Sulfate [Albuterol Inhaler] 2 puff IH Q4HR #1 hfa.aer.ad 06/02/16 [Rx] Albuterol Neb [Proventil Neb] 2.5 mg IH Q2H PRN 30 Days 06/05/16 [Rx] Ipratropium/Albuterol Neb [Duoneb] 3 ml IH QIDR 30 Days 06/05/16 [Rx] Vancomycin HCl in Dextrose 5 % [Vancomycin 750 mg/150 ml Bag] 750 mg IV Q12H # 14 froz.piggy 06/06/16 [Rx] Allergies/Adverse Reactions: Allergies cephalexin [From Keflex] Allergy (Verified 03/14/16 16:16) See Comments Pt unsure of reaction. chlorpromazine [From Thorazine] Allergy (Verified 03/14/16 16:16) See Comments [place] Allergy (Verified 05/29/16 17:34) See Comments Beans Allergy (Uncoded 05/29/16 17:34) See Comments - Respiratory Orders Oxygen / L per min (3L/min titrate to O2 sat greater than 94%) Smoking Cessation: Smoking cessation has been advised. For more information, call the [place] Tobacco Quit Line at 9-293-CDBA-NOW. - Advance Directives Code Status: Full Code - Mobility Orders Ambulate (per PT) - Rehabiliation Orders Rehab Potential: Good Rehab Orders: Evaluation for Physical Therapy - Treatments List/Other: Wound care: Gentamycin ointment Allginate pad Cover with abd pad Cover with gauze Cover with loosely wrapped bandage - Diet Orders Regular (low salt) CERTIFICATION: I certify that the transfer of the above named patient to an Extended Care Facility is necessary for the continuing treatment of the diagnosis listed. The above information is true and accurate reflection of patient's current condition. Confidential - Redisclosure prohibited without a patient's written consent. <Tristen Pak T - Last Filed: 06/06/16 12:54> ExtendedCare Referral Info Institutional Level of Care: Skilled - Diagnosis (1) Acute and chronic respiratory failure with hypoxia Status: Acute (2) Cellulitis Status: Acute (3) Osteomyelitis of left lower extremity Status: Suspected (4) Osteomyelitis of right lower extremity Status: Suspected - Respiratory Orders Smoking Cessation: Smoking cessation has been advised. For more information, call the [place] Tobacco Quit Line at 6-812-RWPI-NOW. CERTIFICATION: I certify that the transfer of the above named patient to an Extended Care Facility is necessary for the continuing treatment of the diagnosis listed. The above information is true and accurate reflection of patient's current condition. Confidential - Redisclosure prohibited without a patient's written consent.
[2016-06-06] MEDS: Vancomycin 750 MG in D5% in Water 250 ML IVPB SCH ×2 (00:58→12:33)
[2016-06-06] MEDS: *HR* OxyCODONE Immed Rel 5 MG TABLET PO PRN (02:19)
[2016-06-06] MEDS: Ipratropium/Albuterol Neb 3 ML IH SCH ×2 (04:08→10:44)
[2016-06-06] MEDS: *HR* Enoxaparin 40 MG/0.4 ML SYRINGE SQ SCH (06:25)
[2016-06-06] MEDS: Lactobacillus 1 EACH CAP.SPRINK PO SCH (08:32)
[2016-06-06] MEDS: Multivit/Ca/Min/Fe/FA 1 TAB TABLET PO SCH (08:32)
[2016-06-06] MEDS: Ascorbic Acid 500 MG TABLET PO SCH (08:32)
[2016-06-06] MEDS: Famotidine 20 MG TABLET PO SCH (08:32)
[2016-06-06] MEDS: Furosemide 20 MG TABLET PO SCH (08:32)
[2016-06-06] MEDS: Zinc Sulfate 220 MG CAPSULE PO SCH (08:32)
[2016-06-06] MEDS: Gentamicin Oint 15 GM TUBE TP SCH (08:33)
[2016-06-06] MEDS: Folic Acid 1 MG TABLET PO SCH (08:33)
[2016-06-06] MEDS: Petrolatum, white 28.35 GM TUBE TP SCH (08:34)
[2016-06-06] MEDS: Cefepime HCl 2,000 MG in D5% in Water 100 ML IVPB SCH (08:55)
--- NOTE | 2016-06-06 13:38 | Internal Med Progress Note ---
<Zhang Busch - Last Filed: 06/06/16 16:48> Date of Encounter: 06/06/16 Time of Encounter: 13:33 - Assessment and plan (1) Osteomyelitis of right lower extremity Status: Suspected Assessment and plan: 46 y/o male with long standing chronic lower extremity wounds. CT shows b/l cellulitis and possible b/l tibial osteomyelitis. Wound cultures have not grown anything Patient is being treated with vanc and cefepime. He will be d/c on the abx to ECF. (2) Osteomyelitis of left lower extremity Status: Suspected Assessment and plan: As stated above. (3) Morbid obesity with BMI of 50.0-59.9, adult Status: Chronic Assessment and plan: 2nd to prader willi syndrome Patient has been advised to loose weight, but it is difficult due to his genetic disease and lower extremity infection. (4) Acute and chronic respiratory failure with hypoxia Status: Acute Assessment and plan: 2nd to pulmonary hypertension. Echo in May 2016 shows RVSP of 75. Continue supplemental O2 He will need to follow up outpatient with pulmonology Patient was qualified for BIPAP and will be d/c with BIPAP to ECF. (5) Anemia Status: Chronic Assessment and plan: Patient has hx of Iron deficiency anemia Ferritin level of 18. IV iron was with held due to infection. He is being continued on oral iron supplementation. B12 WNL. HGB is stable. No active bleeding on Physical exam. Qualifiers: Anemia type: iron deficiency Iron deficiency anemia type: unspecified iron deficiency Qualified Code(s): D50.9 - Iron deficiency anemia, unspecified (6) Muscular deconditioning Status: Chronic Assessment and plan: Patient will need PT/OT when dishcarged to ECF. - Subjective Interval history: Patient was coloring this morning. He had no complaints. I was not able to talk to family today. He will be d/c to ecf. - Constitutional Vitals: Temp Pulse Resp BP Pulse Ox 98.4 F 86 18 110/73 95 06/06/16 11:52 06/06/16 11:52 06/06/16 11:52 06/06/16 11:52 06/06/16 11:52 General appearance: Present: A&O X 2, mild distress, morbidly obese. Absent: cooperative, disheveled - Respiratory Respiratory exam: Present: CTAB. Absent: accessory muscle use, rales, rhonchi, wheezes - Cardiovascular Cardiovascular exam: Present: RRR, +S1, +S2. Absent: diastolic murmur, gallop, rubs, systolic murmur - GI/Abdominal GI/Abdominal exam: Present: normal bowel sounds, soft, no peritoneal signs. Absent: distended, tenderness - Extremities Exam Extremities exam: Present: warm, radial pulses palpable and symetrical. Absent : cyanotic, normal inspection (b/l lower extremity wrapped in kerlex. ) Internal Medicine: Result - Labs CBC & Chem 7: 06/05/16 04:10 06/05/16 04:10 - VTE Documentation of Mechanical Device: Intermittent pneumatic compression device Consult Discharge Plan - Plan Referrals: Francisco Terrazas DPM [Partnered Physician] - 06/14/16 1:45 pm (Patient will see Dr. Terrazas [facility] Prescriptions: Albuterol Neb [Proventil Neb] 2.5 mg IH Q2H PRN 30 Days PRN Reason: Shortness Of Breath/Wheezing Ipratropium/Albuterol Neb [Duoneb] 3 ml IH QIDR 30 Days Vancomycin HCl in Dextrose 5 % [Vancomycin 750 mg/150 ml Bag] 750 mg IV Q12H # 14 froz.piggy <Tristen Pak T - Last Filed: 06/06/16 18:26> Date of Encounter: 06/06/16 - Assessment and plan (1) Acute and chronic respiratory failure with hypoxia Status: Acute (2) Cellulitis Status: Acute Qualifiers: Site of cellulitis: extremity Site of cellulitis of extremity: lower extremity Laterality: unspecified laterality Qualified Code(s): L03.119 - Cellulitis of unspecified part of limb (3) Osteomyelitis of left lower extremity Status: Suspected (4) Osteomyelitis of right lower extremity Status: Suspected - Constitutional Vitals: Temp Pulse Resp BP Pulse Ox 98.4 F 86 18 110/73 95 06/06/16 11:52 06/06/16 11:52 06/06/16 11:52 06/06/16 11:52 06/06/16 11:52 Internal Medicine: Result - Labs CBC & Chem 7: 06/05/16 04:10 06/05/16 04:10 - Attending Attestation I examined this patient and my medical decision-making was reviewed with the BOXING MACHINE OPERATOR/PA/Advanced Practice Nurse/Resident Physician. I agree with the documented findings, disposition and treatment plan as described except to the extent set forth below. 46 Y/O M with Shaunna-Willi, Chronic lower extremities cellulitis, Recurrent aspiration pneumonias, Severe pulmonary HTN Patient was managed for cellulitis and suspected bilateral tibial osteomyelitis Physical Exam-VSS, bilateral lower extremity dressings which patient refused to be checked, chest is clear to auscultation bilaterally. He is stable for transfer to ECF Of note, previous hospitalist had planned transfer to [facility] but per POA, they would prefer he goes to ECF ESR, CRP decreasing, continue Vanco and Cefepime for 7 more days Follow up with PCP to determine chronicity of need In the meantime, ECF to monitor vanco trough [id number] as well as chemistry, all of these are documented in the continuity form Patient qualified for BiPAP at night, also documented in orders sent to ECF Rest of details as in D/C summary of 06/05/16 and resident's noted above
--- NOTE | 2016-06-06 15:05 | Physician Discharge Referral ---
ExtendedCare Referral Info Transfer To: [facility] Provider in Charge: Pasha Provider in Charge after Transfer: PCP Institutional Level of Care: Skilled - Diagnosis (1) Acute and chronic respiratory failure with hypoxia Priority: Primary Status: Acute (2) Cellulitis Priority: Primary Status: Acute (3) Osteomyelitis of left lower extremity Priority: Primary Status: Suspected (4) Osteomyelitis of right lower extremity Priority: Primary Status: Suspected Prognosis: Fair Aware of Diagnosis: Patient, Family Aware of Prognosis: Patient, Family - Transfer Medications Prescriptions: Albuterol Neb [Proventil Neb] 2.5 mg IH Q2H PRN 30 Days PRN Reason: Shortness Of Breath/Wheezing Ipratropium/Albuterol Neb [Duoneb] 3 ml IH QIDR 30 Days Vancomycin HCl in Dextrose 5 % [Vancomycin 750 mg/150 ml Bag] 750 mg IV Q12H # 14 froz.piggy Home Medications: Multivitamin [Multi-Day Vitamins] 1 each PO DAILY 01/07/16 [History] Ascorbic Acid [Vitamin C] 500 mg PO DAILY #30 tablet 01/09/16 [Rx] Folic Acid 0.4 mg PO DAILY #30 tablet 01/09/16 [Rx] Ferrous Gluconate 324 mg PO BID #60 tablet 02/15/16 [Rx] Collagenase Oint [Santyl] 1 appl TP BID 05/23/16 [History] Gentamicin Oint [Garamycin] 1 appl TP BID 05/23/16 [History] Vancomycin HCl in Dextrose 5 % [Vancomycin 1 Gram/250 ml-D5w] 1 gm IV Q12HR 14 Days 05/31/16 [Rx] Acetaminophen [Tylenol] 650 mg PO Q6HR PRN #0 tablet 06/01/16 [Rx] Cefepime HCl/D5w [Cefepime-Dextrose 2 gm/50 ml] 2 gm IV BID 14 Days 06/01/16 [Rx ] Docusate [Colace] 100 mg PO BID PRN #0 capsule 06/01/16 [Rx] Famotidine [Pepcid] 20 mg PO BID tablet 06/01/16 [Rx] Furosemide [Lasix] 20 mg PO BIDDIURETIC #60 tablet 06/01/16 [Rx] Gentamicin Oint [Garamycin] 1 appl TP DAILY #1 tube 06/01/16 [Rx] Lactobacillus [Culturelle] 1 each PO BID cap.sprink 06/01/16 [Rx] Petrolatum, white [Vaseline] 1 appl TP BID oint.pack 06/01/16 [Rx] Potassium Chloride 20 meq PO DAILY #30 tab.er.prt 06/01/16 [Rx] Zinc Sulfate 220 mg PO DAILY capsule 06/01/16 [Rx] Albuterol Sulfate [Albuterol Inhaler] 2 puff IH Q4HR #1 hfa.aer.ad 06/02/16 [Rx] Albuterol Neb [Proventil Neb] 2.5 mg IH Q2H PRN 30 Days 06/05/16 [Rx] Ipratropium/Albuterol Neb [Duoneb] 3 ml IH QIDR 30 Days 06/05/16 [Rx] Vancomycin HCl in Dextrose 5 % [Vancomycin 750 mg/150 ml Bag] 750 mg IV Q12H # 14 froz.piggy 06/06/16 [Rx] Allergies/Adverse Reactions: Allergies cephalexin [From Keflex] Allergy (Verified 03/14/16 16:16) See Comments Pt unsure of reaction. chlorpromazine [From Thorazine] Allergy (Verified 03/14/16 16:16) See Comments [place] Allergy (Verified 05/29/16 17:34) See Comments Beans Allergy (Uncoded 05/29/16 17:34) See Comments - Respiratory Orders Oxygen / L per min (2L /minute prn to O2 Sat of 92% at least), Other (BIPAP IPAP 12, EPAP 6, FIO2 30%, RR 10.) Smoking Cessation: Smoking cessation has been advised. For more information, call the [place] Tobacco Quit Line at 1-153-VIXJ-NOW. - Lab Orders Lab Orders: Other (include drug levels w/frequency) (Vancomycin trough q24-48 hours, goal level 10-15) - Advance Directives Code Status: Full Code - Mobility Orders Ambulate (Per PT/OT) - Rehabiliation Orders Rehab Potential: Fair Rehab Orders: Evaluation for Physical Therapy - Treatments List/Other: Wound care: Gentamycin ointment Allginate pad Cover with abd pad Cover with gauze Cover with loosely wrapped bandage - Diet Orders Regular CERTIFICATION: I certify that the transfer of the above named patient to an Extended Care Facility is necessary for the continuing treatment of the diagnosis listed. The above information is true and accurate reflection of patient's current condition. Confidential - Redisclosure prohibited without a patient's written consent.
[2016-06-06] MEDS ORDERED: Aminoglycoside Consult 1 EACH MC ONE (16:19)
[2016-06-12 15:12] VITALS: BP 110/73
== END 2016-06-06 16:20 | DRG 871 ==
LOC: 3BNU 21:27 → EMEROO 21:27 → SUATTDRO 23:41 → 3BNU 06-03 00:06 → SUATTDRO 06-05 09:01 → 3ANU 06-05 23:28
PROVIDERS: ADMIT Internal Medicine; ATTEND Internal Medicine

== ENCOUNTER 2016-08-08 11:43 | Inpatient (IN) ==
[2016-08-08] MEDS ORDERED: Vancomycin 1,000 MG VIAL IVPB ONE (11:51)
[2016-08-08] MEDS ORDERED: Piperacillin/Tazobactam 4.5 GM in D5% in Water (Mini-Bag+) 100 ML IVPB ONE (11:51)
--- NOTE | 2016-08-08 11:57 | Emergency Department Note ---
Disposition Clinical Impression: Venous ulcer of lower leg without varicose veins, Morbid obesity with BMI of 50.0-59.9, adult Cellulitis Qualifiers: Site of cellulitis: extremity Site of cellulitis of extremity: lower extremity Laterality: left Qualified Code(s): L03.116 - Cellulitis of left lower limb Wound, open, lower limb with complication Qualifiers: Encounter type: subsequent encounter Laterality: unspecified laterality Qualified Code(s): S81.809D - Unspecified open wound, unspecified lower leg, subsequent encounter Disposition: Admitted As Inpatient Condition: Fair Fever HPI - General Chief Complaint: ED Fever Stated Complaint: Fever Source: patient, family, EMS Mode of arrival: EMS Limitations: altered mental status Nursing Notes Reviewed: Yes Vital Signs Reviewed: Yes - History of Present Illness HPI Narrative: 46-year-old male presents to the emergency department with chief complaint of fevers and decreased mentation. History from family and EMS states that long term patient who has multiple leg wounds, and now the wound around the left knee has gotten significantly worse with purulent exudate and increased redness around the area. Patient is now febrile and just has not been as awake as he has been in the past. There is no specific injury or fall or specific mental status change just not as alert as usual. Patient still answers questions to the limits of their ability. Patient is MR, and is unable to provide any specific history, though when questioned says he feels okay. There is not been any fevers or chills no cough or shortness of breath. 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 Temperature Source: oral Context: sick contacts Associated symptoms: Reports: denies other symptoms Improves with: nothing Worsens with: nothing Treatments prior to arrival fever: none - Related Data Home Medications Medication Instructions Recorded Confirmed Multivitamin [Multi-Day Vitamins] 1 each PO DAILY 01/07/16 08/08/16 Acetaminophen [Acetaminophen ER] 650 mg PO Q6H PRN 06/14/16 08/08/16 Albuterol Sulfate [Ventolin Hfa] 2 puff IH Q4H 06/14/16 08/08/16 Docusate [Colace] 100 mg PO BID PRN 06/14/16 08/08/16 Famotidine [Heartburn Prevention] 20 mg PO BID 06/14/16 08/08/16 Albuterol Neb [Proventil Neb] 2.5 mg IH Q2H PRN 08/08/16 08/08/16 Collagenase Oint [Santyl] 1 appl TP AD 08/08/16 08/08/16 Furosemide [Lasix] 40 mg PO BID 08/08/16 08/08/16 Gentamicin Oint [Garamycin] 1 appl TP AD 08/08/16 08/08/16 Ipratropium/Albuterol Neb [Duoneb] 3 ml IH QID 08/08/16 08/08/16 Oxygen 2 l NS AD 08/08/16 08/08/16 Previous Rx's Medication Instructions Recorded Ascorbic Acid [Vitamin C] 500 mg PO DAILY #30 tablet 01/09/16 Folic Acid 0.4 mg PO DAILY #30 tablet 01/09/16 Ferrous Gluconate 324 mg PO BID #60 tablet 02/15/16 Lactobacillus [Culturelle] 1 each PO BID cap.sprink 06/01/16 Potassium Chloride 20 meq PO DAILY #30 tab.er.prt 06/01/16 Zinc Sulfate 220 mg PO DAILY capsule 06/01/16 Allergies Allergy/AdvReac Type Severity Reaction Status Date / Time cephalexin [From Keflex] Allergy See Verified 08/08/16 12:30 Comments chlorpromazine Allergy See Verified 08/08/16 12:30 [From Thorazine] Comments [place] Allergy See Verified 08/08/16 12:30 Comments Beans Allergy See Uncoded 08/08/16 12:30 Comments All systems ED: reviewed and negative except as stated. Constitutional: Reports: as per HPI Eyes: Reports: as per HPI Cardiovascular: Reports: as per HPI Respiratory: Reports: as per HPI Gastrointestinal: Reports: as per HPI Genitourinary: Reports: as per HPI Musculoskeletal: Reports: joint swelling Integumentary: Reports: as per HPI Neurological: Reports: as per HPI Psychiatric: Reports: as per HPI Fever PMH - Past Medical History Medical history: Reports: CHF, dementia, GERD, GI bleed, myocardial infarction, venous stasis, other Surgical history: Reports: cholecystectomy, other Psychiatric history: Reports: no psych history, other - Social History Smoking Status: Never smoker Alcohol use: Reports: none Drug use: Reports: none Physical Exam - General Limitations: altered mental status, physical limitation General appearance: alert, in no apparent distress, obese - Head Head exam: atraumatic, normocephalic - Eye Eye exam: Present: normal appearance - ENT ENT exam: normal exam - Neck Neck exam: Present: normal inspection, full ROM - Chest Chest inspection: Present: normal inspection, symmetric chest wall rise. Absent : tenderness - Respiratory Respiratory exam: Present: normal lung sounds bilaterally - Cardiovascular Cardiovascular exam: Present: regular rate, normal rhythm - Abdominal Exam Abdominal exam: Present: soft, Non-Tender - Extremities Exam Extremities exam: Present: tenderness, normal capillary refill, pedal edema - Expanded Lower Extremity Exam Lower leg exam: Present: tenderness, swelling, other (Examination of the lower extremities reveals bilateral edema patient has healing ulcerations in both the right and left lower extremities, but he has a large reddened area over the left knee medially which has purulent exudate and Andrew in diameter of redness. It is also very foul-smelling.) - Back Exam Back exam: Present: normal inspection - Neurological Exam Neurological exam: Present: alert, oriented X3 - Psychiatric Psychiatric exam: Present: normal affect, normal mood - Skin Skin exam: Present: warm, dry, intact Course Vital Signs Temperature 98.5 F 08/08/16 11:47 Pulse Rate 88 08/08/16 11:47 Respiratory Rate 22 08/08/16 11:47 Blood Pressure 120/21 08/08/16 11:47 O2 Sat by Pulse Oximetry 90 08/08/16 11:47 Temperature 98.5 F 08/08/16 11:47 Pulse Rate 84 08/08/16 14:25 Respiratory Rate 20 08/08/16 14:25 Blood Pressure 112/89 08/08/16 14:25 O2 Sat by Pulse Oximetry 91 08/08/16 14:25 Oxygen Delivery Oxygen Delivery Nasal Cannula Fever - MDM Narrative Medical decision making narrative: As the patient may be becoming septic, we will get a PICC line in place as the family states she is a difficult stick. We will get aggressive with IV antibiotic therapy will also check blood cultures and ultimately admit the patient to the hospital for further evaluation and treatment with IV antibiotic therapy. Patient was reluctant to stay in the hospital and the power of managing attorney also struggled with the concept of admission. He refused IV fluids there refused to do a urinalysis, and they demanded that a PICC line placed. We did place a PICC line in start IV antibiotics, but the patient clearly needs to stay for IV antibiotic therapy. This was communicated to the power of managing attorney who eventually agreed to allow the patient to stay in the hospital for additional evaluation and treatment we are unsuccessful in obtaining urinalysis at this point I think the patient's fevers and problems are coming from the cellulitic knee. We informed the hospitalist of the need for admission and this was arranged for the patient. - Lab Data Lab results reviewed: Yes I reviewed the patient's lab results. Result diagrams: 08/08/16 13:55 08/08/16 13:55 Lab Results 08/08/16 08/08/16 08/08/16 Range/Units 13:55 13:55 13:55 WBC 15.0 H D (4.3-11.1) K/mcL RBC 4.33 (4.19-5.50) M/mcL Hgb 11.3 L (12.9-16.9) g/dL Hct 38.2 (37.5-50.1) % MCV 88.2 (83.0-100.0) fL MCH 26.1 L (28.0-33.3) pg MCHC 29.6 L (31.6-35.5) g/dL RDW 16.5 H (11.5-14.5) % Plt Count 248 (140-400) K/mcL MPV 9.5 (9.4-12.4) fL Immature Gran % 1.1 (0-4) % Seg Neutrophils % 72.2 % Lymphocytes % 12.9 % Monocytes % 12.6 % Eosinophils % 0.8 % Basophils % 0.4 % Neutrophils # 10.8 H (1.6-8.9) K/mcL Lymphocytes # 1.9 (0.6-4.6) K/mcL Monocytes # 1.9 H (0.0-1.3) K/mcL Eosinophils # 0.1 (0.0-0.6) K/mcL Basophils # 0.1 (0.0-0.2) K/mcL Nucleated RBCs/100 WBC 0.1 H (0) /100 WBC Platelet Estimate Normal (Normal) Polychromasia 1+ A (Not Present) Anisocytosis 1+ A (Not Present) PT 14.2 H (9.4-12.1) Seconds INR 1.3 Sodium 138 (136-145) mEq/L Potassium 5.6 H (3.5-4.5) mEq/L Chloride 97 L (98-109) mEq/L Carbon Dioxide 32 H (19-29) mEq/L BUN 32 H (8-26) mg/dL Creatinine 1.36 H (0.72-1.25) mg/dL Est GFR ( Amer) > 60 (> 60) Est GFR (Non-Af Amer) 56 L (> 60) BUN/Creatinine Ratio 24 (6-26) Glucose 117 H (70-99) mg/dL Calculated Osmolality 294 (280-300) Lactic Acid (0.5-2.2) mmol/L Calcium 8.8 (8.6-10.8) mg/dL Total Bilirubin 0.5 (0.2-1.2) mg/dL Direct Bilirubin 0.3 (0.0-0.5) mg/dL Indirect Bilirubin 0.2 (0.0-1.2) mg/dL AST 678 H (5-34) Units/L ALT 485 H (0-55) Units/L Alkaline Phosphatase 179 H (38-126) Units/L Serum Total Protein 6.7 (6.0-8.3) g/dL Albumin 2.7 L (3.5-5.0) g/dL Globulin 4.0 H (2.4-3.5) g/dL Albumin/Globulin Ratio 0.7 L (1.1-2.2) 08/08/16 Range/Units 13:55 WBC (4.3-11.1) K/mcL RBC (4.19-5.50) M/mcL Hgb (12.9-16.9) g/dL Hct (37.5-50.1) % MCV (83.0-100.0) fL MCH (28.0-33.3) pg MCHC (31.6-35.5) g/dL RDW (11.5-14.5) % Plt Count (140-400) K/mcL MPV (9.4-12.4) fL Immature Gran % (0-4) % Seg Neutrophils % % Lymphocytes % % Monocytes % % Eosinophils % % Basophils % % Neutrophils # (1.6-8.9) K/mcL Lymphocytes # (0.6-4.6) K/mcL Monocytes # (0.0-1.3) K/mcL Eosinophils # (0.0-0.6) K/mcL Basophils # (0.0-0.2) K/mcL Nucleated RBCs/100 WBC (0) /100 WBC Platelet Estimate (Normal) Polychromasia (Not Present) Anisocytosis (Not Present) PT (9.4-12.1) Seconds INR Sodium (136-145) mEq/L Potassium (3.5-4.5) mEq/L Chloride (98-109) mEq/L Carbon Dioxide (19-29) mEq/L BUN (8-26) mg/dL Creatinine (0.72-1.25) mg/dL Est GFR ( Amer) (> 60) Est GFR (Non-Af Amer) (> 60) BUN/Creatinine Ratio (6-26) Glucose (70-99) mg/dL Calculated Osmolality (280-300) Lactic Acid 1.4 (0.5-2.2) mmol/L Calcium (8.6-10.8) mg/dL Total Bilirubin (0.2-1.2) mg/dL Direct Bilirubin (0.0-0.5) mg/dL Indirect Bilirubin (0.0-1.2) mg/dL AST (5-34) Units/L ALT (0-55) Units/L Alkaline Phosphatase (38-126) Units/L Serum Total Protein (6.0-8.3) g/dL Albumin (3.5-5.0) g/dL Globulin (2.4-3.5) g/dL Albumin/Globulin Ratio (1.1-2.2) - Radiology Data Radiology results reviewed: Yes I reviewed the patient's radiology results.
[2016-08-08 14:06] LABS: Eosinophils % 0.8 %; Immature Granulocytes % 1.1 % (0-4); Nucleated Red Blood Cells 0.1 /100 WBC (0)
[2016-08-08 14:07] LABS: Basophils # 0.1 K/mcL (0.0-0.2); Basophils % 0.4 %; Eosinophils # 0.1 K/mcL (0.0-0.6); Hematocrit 38.2 % (37.5-50.1); Hemoglobin 11.3 g/dL (12.9-16.9); Lymphocytes # 1.9 K/mcL (0.6-4.6); Lymphocytes % 12.9 %; Mean Corpuscular HGB Conc 29.6 g/dL (31.6-35.5); Mean Corpuscular Hemoglobin 26.1 pg (28.0-33.3); Mean Corpuscular Volume 88.2 fL (83.0-100.0); Mean Platelet Volume 9.5 fL (9.4-12.4); Monocytes # 1.9 K/mcL (0.0-1.3); Monocytes % 12.6 %; Neutrophils # 10.8 K/mcL (1.6-8.9); Platelet Count 248 K/mcL (140-400); Red Blood Count 4.33 M/mcL (4.19-5.50); Red Cell Distribution Width 16.5 % (11.5-14.5); Segmented Neutrophils % 72.2 %
[2016-08-08] MEDS ORDERED: 0.9 % Sodium Chloride 250 ML ONE (14:09)
[2016-08-08] MEDS: 0.9 % Sodium Chloride 1,000 ML IVC ONE ×2 (14:13→14:23)
[2016-08-08 14:22] LABS: Alanine Aminotransferase 485 Units/L (0-55); Albumin 2.7 g/dL (3.5-5.0); Albumin/Globulin Ratio 0.7 (1.1-2.2); Alkaline Phosphatase 179 Units/L (38-126); Aspartate Amino Transferase 678 Units/L (5-34); BUN/Creatinine Ratio 24 (6-26); Bilirubin,Direct 0.3 mg/dL (0.0-0.5); Bilirubin,Indirect 0.2 mg/dL (0.0-1.2); Bilirubin,Total 0.5 mg/dL (0.2-1.2); Blood Urea Nitrogen 32 mg/dL (8-26); Calcium 8.8 mg/dL (8.6-10.8); Carbon Dioxide 32 mEq/L (19-29); Chloride 97 mEq/L (98-109); Glucose 117 mg/dL (70-99); Osmolality,Calculated 294 (280-300); Potassium 5.6 mEq/L (3.5-4.5); Sodium 138 mEq/L (136-145); Total Protein 6.7 g/dL (6.0-8.3); eGFR For African Americans > 60 (> 60); eGFR For Non-African Americans 56 (> 60)
[2016-08-08 14:29] LABS: INR 1.3; Prothrombin Time 14.2 Seconds (9.4-12.1)
[2016-08-08 14:41] LABS: Anisocytosis 1+ (Not Present)
[2016-08-08 14:42] LABS: Polychromasia 1+ (Not Present)
[2016-08-08 14:45] LABS: Platelet Estimate Normal (Normal)
[2016-08-08] MEDS ORDERED: Naloxone 0.4 MG/ML INJ IVP PRN (16:47)
[2016-08-08] MEDS ORDERED: Acetaminophen 325 MG TABLET PO PRN (16:47)
[2016-08-08] MEDS ORDERED: Vancomycin (wt based) 1,000 MG VIAL IVPB SCH (17:00)
[2016-08-08] MEDS ORDERED: Albuterol 2.5 MG/3 ML NEBULIZER IH PRN (17:10)
--- NOTE | 2016-08-08 17:19 | Internal Med History&Physical ---
Date of Encounter: 08/08/16 Time of Encounter: 17:12 Assessment and Plan (1) Sepsis Current visit: No Status: Acute with subjective fevers and elevated WBC. Suspect secondary to chronic lower ext wounds. CXR non-acute. WBC 15K, lactic acid normal. Hemodynamically stable. Most recent wound cx 12/2014 sensitive to meropenum. Cont Vanco, IV fluids started in ED. Blood, urine, wound cx pending. ID consulted. Qualifiers: Sepsis type: sepsis due to unspecified organism Qualified Code(s): A41.9 - Sepsis, unspecified organism (2) Chronic wound of extremity Current visit: No Status: Acute known chronic bilateral lower extremity wounds with recurrent infection. Follows with Dr. Terrazas at wound clinic. Left leg significantly worse. 05/[address] concerning for Osteomyelitis. Cont ATB as noted above, repeat lower ext CT. Podiatry and wound care consulted (3) STEPHANIE (acute kidney injury) Current visit: Yes Status: Acute Cr 1.3; baseline normal. Likely secondary to sepsis. Hold home diuretic, IV fluids. Monitor repeat CMP (4) Transaminitis Current visit: Yes Status: Acute AST 678, [id number], Alk phos 179. Baseline normal. Etiology unknown at this time. Possibly secondary to sepsis. Hold Tylenol and zinc. Hepatitis panel, RUQ US pending. 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 Appears at baseline. Supportive care (6) DVT prophylaxis Current visit: No Status: Acute heparin Internal Medicine - H&P: HPI Chief complaint: worsening lower ext wounds, fever Admitted From: Long-term Nursing Facility Plans for Post Hospital Care: Transfer Care Home Care History of present illness: Mr. Junior is a 46 year old male Prader-Willi syndrome, diabetes and chronic lower extremity wounds who presented to [facility]/08/[facility] with concerns for worsening left lower ext wound and fever. He was found to be in sepsis and was admitted for IV ATB, IV fluids and further work-up and treatment. Information obtained from chart review only as patient is non-cooperative and will not answer my questions and yelling at me during the exam. Per chart review , patient was sent [facility] as left leg wounds are significantly worsened as well as fevers. and altered mental status. No famil y at bedside to obtain collateral Past Med Surg Social Fam HX - Past Medical History Medical history: CHF, dementia, GERD, GI bleed, myocardial infarction, venous stasis, other Psychiatric history: no psych history, other - Past Surgical History Surgical History: cholecystectomy, other - Social History Smoking Status: Never smoker Smokeless Tobacco Status: No Alcohol use: none Drug use: none - Family History Father Living Status: Still Living Hx Family Cardiac Disorders: Yes (htn) Hx Family Cancer: Yes (thyroid ca) Mother Living Status: Hx Family Cardiac Disorders: Yes (chf) Hx Family Respiratory Disorders: Yes (pneumonia) Hx Family Endocrine Disorder: Yes (diabetic) Internal Medicine - H&P: Meds Multivitamin [Multi-Day Vitamins] 1 each PO DAILY 01/07/16 [History] Ascorbic Acid [Vitamin C] 500 mg PO DAILY #30 tablet 01/09/16 [Rx] Folic Acid 0.4 mg PO DAILY #30 tablet 01/09/16 [Rx] Ferrous Gluconate 324 mg PO BID #60 tablet 02/15/16 [Rx] Lactobacillus [Culturelle] 1 each PO BID cap.sprink 06/01/16 [Rx] Potassium Chloride 20 meq PO DAILY #30 tab.er.prt 06/01/16 [Rx] Zinc Sulfate 220 mg PO DAILY capsule 06/01/16 [Rx] Acetaminophen [Acetaminophen ER] 650 mg PO Q6H PRN 06/14/16 [History] Albuterol Sulfate [Ventolin Hfa] 2 puff IH Q4H 06/14/16 [History] Docusate [Colace] 100 mg PO BID PRN 06/14/16 [History] Famotidine [Heartburn Prevention] 20 mg PO BID 06/14/16 [History] Albuterol Neb [Proventil Neb] 2.5 mg IH Q2H PRN 08/08/16 [History] Collagenase Oint [Santyl] 1 appl TP AD 08/08/16 [History] Furosemide [Lasix] 40 mg PO BID 08/08/16 [History] Gentamicin Oint [Garamycin] 1 appl TP AD 08/08/16 [History] Ipratropium/Albuterol Neb [Duoneb] 3 ml IH QID 08/08/16 [History] Oxygen 2 l NS AD 08/08/16 [History] Allergies cephalexin [From Keflex] Allergy (Verified 08/08/16 12:30) See Comments Pt unsure of reaction. chlorpromazine [From Thorazine] Allergy (Verified 08/08/16 12:30) See Comments [place] Allergy (Verified 08/08/16 12:30) See Comments Beans Allergy (Uncoded 08/08/16 12:30) See Comments ROS unobtainable: due to mental status, other All Systems PM: A 10-system review of systems was performed and is negative for pertinent findings except as documented above in the HPI. - Constitutional Vitals: Temp Pulse Resp BP Pulse Ox 98.5 F 84 18 127/78 91 08/08/16 11:47 08/08/16 14:25 08/08/16 16:07 08/08/16 16:07 08/08/16 14:25 General appearance: Present: A&O X 1, morbidly obese - Head Head exam: Present: atraumatic, normocephalic - Eye Eye exam: Present: PERRL, conjuntiva pink, sclera anicteric Pupils: Present: PERRL - Neck Neck exam general surgery: Present: supple, trachea midline. Absent: lymphadenopathy - Respiratory Respiratory exam: Present: CTAB. Absent: accessory muscle use, rales, rhonchi, wheezes - Cardiovascular Cardiovascular exam: Present: RRR, +S1, +S2. Absent: diastolic murmur, gallop, rubs, systolic murmur - GI/Abdominal GI/Abdominal exam: Present: normal bowel sounds, soft, no peritoneal signs. Absent: distended, tenderness Additional comments: obese - Extremities Exam Extremities exam: Present: warm, radial pulses palpable and symetrical. Absent : calf tenderness, cyanotic, pedal edema - Neurological Exam Neurological exam: Present: CN II-XII intact, no focal deficits. Absent: pronater drift, facial droop, speech deficit - Psychiatric Psychiatric exam: Present: agitated, flat affect Additional comments: difficult to assess orientation. He will not answer questions - Skin Skin exam: Present: dry, intact - Expanded Skin Exam Description of rash: Present: swelling, tenderness - Other Additional findings: bilateral lower extremities with diffuse erythema and ulcerations. Internal Med - H&P Results - Labs CBC & Chem 7: 08/08/16 13:55 08/08/16 13:55
--- NOTE | 2016-08-08 17:41 | Event Note ---
Date of Encounter: 08/08/16 Time of Encounter: 17:36 1) Sepsis 2ry to acute on chronic bilateral lower extremities cellulitis, consider possible osteomyelitis start Merrem , continue Vancomycin add wound cultures IVF ID consult CT legs no contrast 2)ARF secondary to sepsis 3) Prader Willi Sd 4) morbid obesity 5)Hx of diastolic CHF hold lasix 6)Transaminitis unclear source order RUQ ultrasound check hepatits panel. Follow LFTs hold Zinc and acetaminophen ( could cause toxicity)
[2016-08-08] MEDS ORDERED: Vancomycin 1,500 MG in D5% in Water 250 ML IVPB SCH (18:00)
[2016-08-08] MEDS ORDERED: Meropenem 500 MG in 0.9 % Sodium Chloride Mini Bag 100 ML IVPB SCH (18:00)
[2016-08-08] MEDS: 0.9 % Sodium Chloride 1,000 ML IVC SCH (18:21)
[2016-08-08] MEDS: Meropenem 500 MG in 0.9 % Sodium Chloride Mini Bag 100 ML IVPB SCH (18:22)
[2016-08-08] MEDS: Ipratropium/Albuterol Neb 3 ML IH SCH (21:02)
[2016-08-08 21:29] LABS: INR 1.3
[2016-08-08 21:31] LABS: Activated Partial Thrombo Time 34.2 Seconds (26.0-36.0)
[2016-08-09] MEDS ORDERED: Piperacillin/Tazobactam 3.375 GM in D5% in Water (Mini-Bag+) 100 ML IVPB SCH
[2016-08-09] MEDS: Gentamicin Oint 15 GM TUBE TP SCH ×3 (00:03→21:30)
[2016-08-09] MEDS: Vancomycin 1,500 MG in D5% in Water 250 ML IVPB SCH ×3 (00:03→23:25)
[2016-08-09] MEDS: *HR* Heparin 5,000 UNIT/ML VIAL SQ SCH ×4 (00:05→23:25)
[2016-08-09] MEDS: Meropenem 500 MG in 0.9 % Sodium Chloride Mini Bag 100 ML IVPB SCH ×3 (03:12→18:09)
[2016-08-09] MEDS: Ipratropium/Albuterol Neb 3 ML IH SCH ×4 (04:21→21:45)
[2016-08-09] MEDS: Folic Acid 1 MG TABLET PO SCH ×2 (08:30→12:02)
[2016-08-09] MEDS ORDERED: Zinc Sulfate 220 MG CAPSULE PO SCH (09:00)
--- NOTE | 2016-08-09 10:32 | Infectious Disease Consult ---
Date of Encounter: 08/09/16 Time of Encounter: 10:29 Assessment and Plan (1) Leukocytosis Status: Acute Assessment and plan: WBC elevated at 15 thousand with 12% monocytes on admission. Likely secondary to lower extremity cellulitis. Repeat CBC now --> ordered. Qualifiers: Leukocytosis type: unspecified Qualified Code(s): D72.829 - Elevated white blood cell count, unspecified (2) Cellulitis Status: Acute Assessment and plan: Location: Bilateral lower extremities per other provider reports. Patient refuses to let me remove the BLE dressings to fully evaluate. I am able to visualize cellulitis changes to the left knee. Causative organism unclear. Wound culture of the left knee is pending. Likely secondary to infected venous stasis ulcers. Left knee x-ray completed shows no joint effusion. Blood cultures drawn 08/08/16 in the ED are pending x 3 sets. Podiatry consulted for wound care recommendations. Continue Vancomycin IV. Pharmacy to dose. Goal trough approximately 15. Discontinue meropenem. Start Zosyn 3.375 grams IV Q8H. Duration of treatment depends on the clinical picture. Monitor renal function and for drug toxicity and dose-adjust antibiotics. Qualifiers: Site of cellulitis: extremity Site of cellulitis of extremity: lower extremity Laterality: unspecified laterality Qualified Code(s): L03.119 - Cellulitis of unspecified part of limb (3) STEPHANIE (acute kidney injury) Status: Acute Assessment and plan: Etiology unclear. Serum creatinine 1.36 on admission, which compared to previous levels is elevated. Urine output not able to be measured due to the patient being incontinent and refusing velasquez catheter insertion. Repeat CMP now to evaluate further. If worsens, consider nephrology consult. Dose-adjust antibiotics and avoid nephrotoxins as able. (4) Transaminitis Status: Acute Assessment and plan: Etiology unclear. Abdominal exam reveals diffuse tenderness, worse in the upper quadrants. Abdominal UTS negative. Repeat labs now. Check hepatitis profile--> pending. May need to consider GI consult if worsens. (5) Ulcers of both lower legs Status: Acute Assessment and plan: Likely secondary to venous stasis. Unable to fully assess due to patient refusing to allow me to remove dressings. Podiatry consulted for wound care recommendations. (6) Morbid obesity with BMI of 50.0-59.9, adult Status: Chronic (7) Prader-Willi syndrome Status: Chronic Infectious Disease HPI - Data of Consult Patient: new to practice Consult date: 08/09/16 Requesting Physician: Anjum Schneider Primary Care Provider: PCP NO - Consult Narrative Reason for consult: Left knee cellulitis History of present illness: Mr. Junior is a 46 year old male with a past medical history of Prader-Willi syndrome, mental retardation, CHF, GERD, GI bleed, CT, and venous stasis. The patient was admitted to the hospital August 08 for venous stasis ulcer to the lower extremity. We are consulted August 09 for antibiotic recommendations regarding cellulitis of the left knee. The patient's a 46 year old male with past medical history as stated above. The patient is not compliant with the exam, therefore, all of the information is obtained from the medical record. There is no family at the bedside. Apparently , the patient presented to the emergency department with complaints of subjective fever and decreased mental status and multiple leg wounds. Upon arrival, patient was afebrile hemodynamically stable. Laboratory studies revealed a leukocytosis of 15,000 with 12% monocytes. Patient was also noted to have elevated liver enzymes. Lactic acid was normal. Serum creatinine was elevated at 1.36. Chest x-ray was completed that was negative. Left knee x-ray was completed that was negative as well. Blood cultures were obtained 3 sets are currently pending. Wound culture was obtained from the left knee. Podiatry is been consulted. The patient was placed on IV vancomycin and IV meropenem based on a previous wound culture back in 2014. We've been asked to evaluate and make further recommendations. During my exam today, the patient is noncompliant and refuses to answer most of my questions. When asked if he is in pain, the patient states he is not. He offers no other information regarding his review of systems. No repeat labs have been done this morning. Abdominal ultrasound was completed of the right upper quadrant that was negative. CC: Anjum Schneider Past Med Surg Social Fam HX - Past Medical History Source: old records reviewed, nursing notes reviewed Medical history: CHF, dementia, GERD, GI bleed, myocardial infarction, venous stasis, other Psychiatric history: no psych history, other - Past Surgical History Surgical History: cholecystectomy, other - Social History Smoking Status: Never smoker Smokeless Tobacco Status: No Alcohol use: none Drug use: none Occupational status: disabled - Family History Father History Unknown: Yes Living Status: Still Living Hx Family Cardiac Disorders: Yes (htn) Hx Family Cancer: Yes (thyroid ca) Mother Living Status: Hx Family Cardiac Disorders: Yes (chf) Hx Family Respiratory Disorders: Yes (pneumonia) Hx Family Endocrine Disorder: Yes (diabetic) Infectious Disease-CN:Meds Multivitamin [Multi-Day Vitamins] 1 each PO DAILY 01/07/16 [History] Ascorbic Acid [Vitamin C] 500 mg PO DAILY #30 tablet 01/09/16 [Rx] Folic Acid 0.4 mg PO DAILY #30 tablet 01/09/16 [Rx] Ferrous Gluconate 324 mg PO BID #60 tablet 02/15/16 [Rx] Lactobacillus [Culturelle] 1 each PO BID cap.sprink 06/01/16 [Rx] Potassium Chloride 20 meq PO DAILY #30 tab.er.prt 06/01/16 [Rx] Zinc Sulfate 220 mg PO DAILY capsule 06/01/16 [Rx] Acetaminophen [Acetaminophen ER] 650 mg PO Q6H PRN 06/14/16 [History] Albuterol Sulfate [Ventolin Hfa] 2 puff IH Q4H 06/14/16 [History] Docusate [Colace] 100 mg PO BID PRN 06/14/16 [History] Famotidine [Heartburn Prevention] 20 mg PO BID 06/14/16 [History] Albuterol Neb [Proventil Neb] 2.5 mg IH Q2H PRN 08/08/16 [History] Collagenase Oint [Santyl] 1 appl TP AD 08/08/16 [History] Furosemide [Lasix] 40 mg PO BID 08/08/16 [History] Gentamicin Oint [Garamycin] 1 appl TP AD 08/08/16 [History] Ipratropium/Albuterol Neb [Duoneb] 3 ml IH QID 08/08/16 [History] Oxygen 2 l NS AD 08/08/16 [History] Allergies cephalexin [From Keflex] Allergy (Verified 08/08/16 12:30) See Comments Pt unsure of reaction. chlorpromazine [From Thorazine] Allergy (Verified 08/08/16 12:30) See Comments [place] Allergy (Verified 08/08/16 12:30) See Comments Beans Allergy (Uncoded 08/08/16 12:30) See Comments ROS unobtainable: due to mental status Exam - Constitutional Vitals: Temp Pulse Resp BP Pulse Ox 97.9 F 76 18 120/83 93 08/09/16 07:04 08/09/16 07:04 08/09/16 07:04 08/09/16 07:04 08/09/16 07:04 General appearance: morbidly obese, no acute distress, no febrile, no cooperative - Head Head exam: Present: atraumatic, normal inspection, normocephalic - Eye Additional comments: Patient refuses to open his eyes in order for me to perform exam. - ENT ENT exam: Present: mucous membranes moist - Neck Neck exam: Present: normal inspection - Respiratory Respiratory exam: Present: CTAB. Absent: rales, rhonchi, wheezes, tachypnea - Cardiovascular Cardiovascular exam: Present: +S1, +S2. Absent: tachycardia - GI/Abdominal GI/Abdominal exam: Present: distended (Obese), normal bowel sounds, soft, tenderness (Generalized) - Extremities Exam Additional comments: Bilateral lower extremities are edematous and erythematous with gauze dressings noted with large amount of serous drainage noted on the dressings. Additionally , left knee is erythematous, edematous, with multiple superficial wounds noted. Serous drainage noted. Foul odor noted. The patient refuses to allow me to remove the BLE dressings to fully assess the wounds. - Neurological Exam Neurological exam: Present: alert Additional comments: Unable to assess orientation as the patient will not answer my questions. He does follow some commands, but for the most part is noncompliant with the exam. - Skin Skin exam: Present: dry, intact, warm Infectious Disease CN: Results - Labs CBC & Chem 7: 08/08/16 13:55 08/08/16 13:55 Consult Discharge Plan - Plan Referrals: NO,PCP [Primary Care Provider] -
[2016-08-09 11:09] LABS: Hepatitis C Virus Antibody Nonreactive (Nonreactive)
[2016-08-09 11:47] LABS: Basophils # 0.1 K/mcL (0.0-0.2); Basophils % 0.7 %; Eosinophils # 0.8 K/mcL (0.0-0.6); Eosinophils % 9.1 %; Hematocrit 35.8 % (37.5-50.1); Hemoglobin 10.6 g/dL (12.9-16.9); Immature Granulocytes % 1.5 % (0-4); Lymphocytes # 1.5 K/mcL (0.6-4.6); Lymphocytes % 16.8 %; Mean Corpuscular HGB Conc 29.6 g/dL (31.6-35.5); Mean Platelet Volume 9.8 fL (9.4-12.4); Monocytes # 1.2 K/mcL (0.0-1.3); Monocytes % 13.7 %; Neutrophils # 5.1 K/mcL (1.6-8.9); Nucleated Red Blood Cells 0.2 /100 WBC (0); Platelet Count 203 K/mcL (140-400); Red Blood Count 4.07 M/mcL (4.19-5.50); Red Cell Distribution Width 16.3 % (11.5-14.5); Segmented Neutrophils % 58.2 %
[2016-08-09 11:52] LABS: Alanine Aminotransferase 567 Units/L (0-55); Albumin 2.4 g/dL (3.5-5.0); Albumin/Globulin Ratio 0.7 (1.1-2.2); Alkaline Phosphatase 133 Units/L (38-126); Aspartate Amino Transferase 511 Units/L (5-34); BUN/Creatinine Ratio 38 (6-26); Bilirubin,Total 0.4 mg/dL (0.2-1.2); Blood Urea Nitrogen 37 mg/dL (8-26); Calcium 8.3 mg/dL (8.6-10.8); Carbon Dioxide 32 mEq/L (19-29); Chloride 104 mEq/L (98-109); Globulin 3.6 g/dL (2.4-3.5); Glucose 89 mg/dL (70-99); Osmolality,Calculated 304 (280-300); Sodium 143 mEq/L (136-145); eGFR For African Americans > 60 (> 60); eGFR For Non-African Americans > 60 (> 60)
[2016-08-09 11:53] LABS: Potassium 4.3 mEq/L (3.5-4.5)
[2016-08-09 11:58] LABS: Hepatitis A Antibody IgM Nonreactive (Nonreactive); Hepatitis B Core IgM Nonreactive (Nonreactive); Hepatitis B Surface Antigen Nonreactive (Nonreactive)
[2016-08-09] MEDS ORDERED: *HR* OxyCODONE Immed Rel 5 MG TABLET PO PRN (17:14)
--- NOTE | 2016-08-09 17:17 | Internal Med Progress Note ---
Date of Encounter: 08/09/16 Time of Encounter: 17:15 - Assessment and plan (1) Sepsis affecting skin Current Visit: No Status: Acute Assessment and plan: Severe sepsis secondary to bilateral lower extremities cellulitis worse on the left than the right Continue meropenem and vancomycin IV day 2 Infectious diseases consulted Wound cultures, IV fluids Dr. Terrazas was consulted (2) Morbid obesity with BMI of 50.0-59.9, adult Current Visit: Yes Status: Chronic (3) 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 (4) Chronic wound of extremity Current Visit: No Status: Chronic (5) Transaminitis Current Visit: Yes Status: Acute Assessment and plan: Unclear etiology, consider shock liver Negative hepatitis panel No abnormalities evidenced on day liver ultrasound Check Chris-Amado virus antibodies (6) STEPHANIE (acute kidney injury) Current Visit: Yes Status: Acute Assessment and plan: likely secondary to sepsis Improving - Subjective Interval history: The patient is complaining of pain over both of his legs mainly on the left knee. Denies any chest pain or shortness of breath. No fevers overnight. No dysuria or diarrhea - Constitutional Vitals: Temp Pulse Resp BP Pulse Ox 98.0 F 77 18 111/83 97 08/09/16 14:07 08/09/16 14:07 08/09/16 14:07 08/09/16 14:07 08/09/16 14:07 General appearance: Present: A&O X 1, morbidly obese - Head Head exam: Present: atraumatic, normocephalic - Eye Eye exam: Present: PERRL, conjuntiva pink, sclera anicteric Pupils: Present: PERRL - Neck Neck exam general surgery: Present: supple, trachea midline. Absent: lymphadenopathy - Respiratory Respiratory exam: Present: CTAB. Absent: accessory muscle use, rales, rhonchi, wheezes - Cardiovascular Cardiovascular exam: Present: RRR, +S1, +S2. Absent: diastolic murmur, gallop, rubs, systolic murmur - GI/Abdominal GI/Abdominal exam: Present: normal bowel sounds, soft, no peritoneal signs. Absent: distended, tenderness - Extremities Exam Extremities exam: Present: warm, radial pulses palpable and symetrical. Absent : calf tenderness, cyanotic, pedal edema - Neurological Exam Neurological exam: Present: CN II-XII intact, oriented X3, no focal deficits. Absent: pronater drift, facial droop, speech deficit - Skin Skin exam: Present: erythema (Severe erythema in both lower extremities), excoriation (Severe edema in both lower extremities with severe chronic venous status is changes cellulitis in both shins, left knees extremely swollen showing blisters with yellowish contents). Absent: dry, intact Internal Medicine: Result - Labs CBC & Chem 7: 08/09/16 11:27 08/09/16 11:27 Labs: Short CBC 08/09/16 Range/Units 11:27 WBC 8.7 (4.3-11.1) K/mcL Hgb 10.6 L (12.9-16.9) g/dL Hct 35.8 L (37.5-50.1) % Plt Count 203 (140-400) K/mcL Neutrophils # 5.1 (1.6-8.9) K/mcL BMP 08/09/16 11:27 Sodium 143 Potassium 4.3 D Chloride 104 Carbon Dioxide 32 H BUN 37 H Creatinine 0.97 Glucose 89 Calcium 8.3 L Liver Function 08/09/16 Range/Units 11:27 Total Bilirubin 0.4 (0.2-1.2) mg/dL AST 511 H (5-34) Units/L ALT 567 H (0-55) Units/L Alkaline Phosphatase 133 H (38-126) Units/L Albumin 2.4 L (3.5-5.0) g/dL - ABG Interpretation ABG results: PT/INR, D-dimer PT 14.0 Seconds (9.4-12.1) H 08/08/16 21:17 - Impressions Impressions Abdomen Ultrasound 08/09/16 08:00 IMPRESSION: 1. Limited examination due to patient's pain. 2. Suboptimal evaluation of the kidney and pancreas. 3. Status post cholecystectomy. D/ / Lorena Navas MD / Lorena Navas MD Interpreting Provider: Lorena Navas MD Consult Discharge Plan - Plan Referrals: NO,PCP [Primary Care Provider] -
[2016-08-09] MEDS: 0.9 % Sodium Chloride 1,000 ML IVC SCH (17:45)
[2016-08-10] MEDS: Meropenem 500 MG in 0.9 % Sodium Chloride Mini Bag 100 ML IVPB SCH (03:30)
[2016-08-10] MEDS: Ipratropium/Albuterol Neb 3 ML IH SCH ×4 (04:30→20:31)
[2016-08-10 05:19] LABS: Hematocrit 36.6 % (37.5-50.1); Hemoglobin 10.9 g/dL (12.9-16.9); Mean Corpuscular HGB Conc 29.8 g/dL (31.6-35.5); Mean Corpuscular Hemoglobin 26.3 pg (28.0-33.3); Mean Corpuscular Volume 88.4 fL (83.0-100.0); Mean Platelet Volume 11.2 fL (9.4-12.4); Platelet Count 187 K/mcL (140-400); Red Blood Count 4.14 M/mcL (4.19-5.50); Red Cell Distribution Width 16.5 % (11.5-14.5)
[2016-08-10 05:26] LABS: Alanine Aminotransferase 796 Units/L (0-55); Albumin 2.4 g/dL (3.5-5.0); Albumin/Globulin Ratio 0.6 (1.1-2.2); Alkaline Phosphatase 130 Units/L (38-126); BUN/Creatinine Ratio 32 (6-26); Bilirubin,Total 0.3 mg/dL (0.2-1.2); Blood Urea Nitrogen 30 mg/dL (8-26); Calcium 8.3 mg/dL (8.6-10.8); Carbon Dioxide 23 mEq/L (19-29); Chloride 104 mEq/L (98-109); Globulin 4.2 g/dL (2.4-3.5); Glucose 111 mg/dL (70-99); Osmolality,Calculated 293 (280-300); Potassium 5.2 mEq/L (3.5-4.5); Sodium 138 mEq/L (136-145); Total Protein 6.6 g/dL (6.0-8.3); eGFR For African Americans > 60 (> 60); eGFR For Non-African Americans > 60 (> 60)
[2016-08-10 05:30] LABS: Aspartate Amino Transferase 759 Units/L (5-34)
[2016-08-10] MEDS: Folic Acid 1 MG TABLET PO SCH (08:05)
[2016-08-10] MEDS: 0.9 % Sodium Chloride 1,000 ML IVC SCH (08:05)
[2016-08-10] MEDS: *HR* Heparin 5,000 UNIT/ML VIAL SQ SCH ×2 (08:06→18:36)
[2016-08-10] MEDS ORDERED: *HR* Atropine Sulfate 1 MG/10 ML SYRINGE IV ONE (08:31)
--- NOTE | 2016-08-10 10:19 | Infectious Disease Progress No ---
Date of Encounter: 08/10/16 Time of Encounter: 10:17 - Assessment and Plan (1) Leukocytosis Current Visit: Yes Status: Resolved WBC elevated at 15 thousand with 12% monocytes on admission. Likely secondary to lower extremity cellulitis. Resolved. Qualifiers: Leukocytosis type: unspecified Qualified Code(s): D72.829 - Elevated white blood cell count, unspecified (2) Cellulitis Current Visit: No Status: Acute Location: Left knee. I was able to remove the dressings to the BLE this morning with the assistance of nursing and fully evaluate the patient's legs. Although there is marked erythema to the BLE, I do not believe this is cellulitis, but likely more related to venous stasis. I do believe there are some cellulitic skin changes overlying the left knee. Causative organism unclear. Wound culture of the left knee is negative. Likely secondary to venous stasis ulcers. Left knee x-ray completed shows no joint effusion. Blood cultures drawn 08/08/16 in the ED are NGTD x 3 sets. Podiatry consulted for wound care recommendations. Continue Vancomycin IV. Pharmacy to dose. Goal trough approximately 15. Discontinue meropenem. Start Zosyn 3.375 grams IV Q8H. Duration of treatment depends on the clinical picture. Monitor renal function and for drug toxicity and dose-adjust antibiotics. Qualifiers: Site of cellulitis: extremity Site of cellulitis of extremity: lower extremity Laterality: unspecified laterality Qualified Code(s): L03.119 - Cellulitis of unspecified part of limb (3) Ulcers of both lower legs Current Visit: No Status: Acute Likely secondary to venous stasis. Able to fully evaluate this morning since the patient allowed me to remove the dressings. Several large venous stasis ulcers noted to the lower portion of the bilateral lower extremities. Dressings with large amounts of serous drainage. Clinically, they do not appear infected. There is no foul odor at this time. Podiatry and wound care consulted for wound care recommendations. Consider transfer to tertiary care center for aggressive wound care and plastic surgery consultation. (4) STEPHANIE (acute kidney injury) Current Visit: Yes Status: Resolved Resolved. (5) Transaminitis Current Visit: Yes Status: Acute Etiology unclear. Abdominal exam reveals diffuse tenderness, worse in the upper quadrants. Abdominal UTS negative. Hepatitis profile negative. May need to consider GI consult if worsens. (6) Morbid obesity with BMI of 50.0-59.9, adult Current Visit: Yes Status: Chronic (7) 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 - Subjective Interval history: Patient seen and examined. No acute events noted overnight. Patient receptive to physical exam today, but does refuse certain aspects. Denies pain overall. Denies chest pain or abdominal pain. Denies pain in his lower extremities. Denies shortness of breath or cough. Will not answer any other questions related to the review of systems at this time. According to nursing documentation, the patient had a soft bowel movement this morning. The patient remains incontinent of urine. No other new issues per nursing. Infect Dis PN-Objective Data - Labs CBC & Chem 7: 08/10/16 03:52 08/10/16 03:52 Labs: Laboratory Results - last 24 hr 08/08/16 08/09/16 08/09/16 20:11 11:27 11:27 WBC 8.7 RBC 4.07 L Hgb 10.6 L Hct 35.8 L MCV 88.0 MCH 26.0 L MCHC 29.6 L RDW 16.3 H Plt Count 203 MPV 9.8 Immature Gran % 1.5 Seg Neutrophils % 58.2 Lymphocytes % 16.8 Monocytes % 13.7 Eosinophils % 9.1 Basophils % 0.7 Neutrophils # 5.1 Lymphocytes # 1.5 Monocytes # 1.2 Eosinophils # 0.8 H Basophils # 0.1 Nucleated RBCs/100 WBC 0.2 H Sodium 143 Potassium 4.3 D Chloride 104 Carbon Dioxide 32 H BUN 37 H Creatinine 0.97 Est GFR ( Amer) > 60 Est GFR (Non-Af Amer) > 60 BUN/Creatinine Ratio 38 H Glucose 89 Calculated Osmolality 304 H Calcium 8.3 L Total Bilirubin 0.4 AST 511 H ALT 567 H Alkaline Phosphatase 133 H Serum Total Protein 6.0 Albumin 2.4 L Globulin 3.6 H Albumin/Globulin Ratio 0.7 L Hepatitis A IgM Ab Nonreactive Hep Bs Antigen Nonreactive Hep B Core IgM Ab Nonreactive Hepatitis C Ab Screen Nonreactive 08/10/16 08/10/16 03:52 03:52 WBC 9.7 RBC 4.14 L Hgb 10.9 L Hct 36.6 L MCV 88.4 MCH 26.3 L MCHC 29.8 L RDW 16.5 H Plt Count 187 MPV 11.2 Immature Gran % Seg Neutrophils % Lymphocytes % Monocytes % Eosinophils % Basophils % Neutrophils # Lymphocytes # Monocytes # Eosinophils # Basophils # Nucleated RBCs/100 WBC Sodium 138 Potassium 5.2 H Chloride 104 Carbon Dioxide 23 BUN 30 H Creatinine 0.93 Est GFR ( Amer) > 60 Est GFR (Non-Af Amer) > 60 BUN/Creatinine Ratio 32 H Glucose 111 H Calculated Osmolality 293 Calcium 8.3 L Total Bilirubin 0.3 AST 759 H ALT 796 H Alkaline Phosphatase 130 H Serum Total Protein 6.6 Albumin 2.4 L Globulin 4.2 H Albumin/Globulin Ratio 0.6 L Hepatitis A IgM Ab Hep Bs Antigen Hep B Core IgM Ab Hepatitis C Ab Screen Cultures: Cultures 08/09/16 18:24 Wound Culture - Preliminary Other-Specify in Comments No growth. Serology 08/08/16 Range/Units 20:11 Hepatitis A IgM Ab Nonreactive (Nonreactive) Hep Bs Antigen Nonreactive (Nonreactive) Hep B Core IgM Ab Nonreactive (Nonreactive) Hepatitis C Ab Screen Nonreactive (Nonreactive) Exam - Constitutional Vitals: Temp Pulse Resp BP Pulse Ox 98.1 F 76 18 128/79 96 08/10/16 06:26 08/10/16 06:26 08/10/16 06:26 08/10/16 06:26 08/10/16 06:26 General appearance: morbidly obese, no acute distress, no cooperative - Head Head exam: Present: atraumatic, normal inspection, normocephalic - Eye Eye exam: Present: EOMI, normal appearance, PERRL Pupils: Present: normal accommodation - ENT ENT exam: Present: mucous membranes moist - Neck Neck exam: Present: normal inspection - Respiratory Respiratory exam: Present: wheezes (Fine expiratory wheezes RUL). Absent: rales , respiratory distress, rhonchi - Cardiovascular Cardiovascular exam: Present: RRR, +S1, +S2 - GI/Abdominal GI/Abdominal exam: Present: distended (obese), normal bowel sounds, soft, tenderness (Patient became upset when palpating his abdomen and demanded I stop further assessment of the abdomen.) - Extremities Exam Extremities exam: Present: pedal edema (2+ bilateral feet, 3+ bilateral thighs) . Absent: tenderness Additional comments: Venous stasis dermatitis noted to the lower aspects of the bilateral lower extremities. Right lower extremity with large venous stasis ulcers noted to the anterior and posterior aspects of the lower portion of the extremity. Anterior wound wound bed 100% granulation tissue without necrosis or slough. Posterior wound bed difficult to assess due to patient noncompliance with the exam. Left lower extremity with erythematous are noted to the medial aspect of th eleft knee extending up into the medial aspect of the thigh. Several serous fluid-filled blisters noted. Large venous stasis ulcer noted to the anterior, medial, and lateral aspect of the lower portion of the LLE. Again, difficult to assess entirely as the patient is somewhat noncompliant with the exam. - Neurological Exam Neurological exam: Present: alert, no focal deficits. Absent: facial droop, speech deficit - Psychiatric Psychiatric exam: Present: anxious - Skin Skin exam: Present: dry, intact, normal color, warm Consult Discharge Plan - Plan Referrals: NO,PCP [Primary Care Provider] -
[2016-08-10] MEDS: Gentamicin Oint 15 GM TUBE TP SCH (11:06)
[2016-08-10] MEDS: Vancomycin 1,500 MG in D5% in Water 250 ML IVPB SCH (13:49)
--- NOTE | 2016-08-10 15:26 | Internal Med Progress Note ---
Date of Encounter: 08/10/16 Time of Encounter: 15:23 - Assessment and plan (1) Sepsis affecting skin Current Visit: No Status: Acute Assessment and plan: Severe sepsis secondary to bilateral lower extremities cellulitis worse on the left than the right Discontinued meropenem at day 3 and restarted Zosyn vancomycin IV day 3 Infectious diseases consulted Wound cultures, discontinue IV fluids consider skin biopsy Dr. Terrazas was consulted (2) Morbid obesity with BMI of 50.0-59.9, adult Current Visit: Yes Status: Chronic (3) 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 (4) Chronic wound of extremity Current Visit: No Status: Chronic (5) Transaminitis Current Visit: Yes Status: Acute Assessment and plan: Unclear etiology, no evidence of shock liver Negative hepatitis panel No abnormalities evidenced on the liver ultrasound Checked Chris-Amado virus antibodies ordered GI consult (6) STEPHANIE (acute kidney injury) Current Visit: Yes Status: Resolved Assessment and plan: likely secondary to sepsis resolved - Subjective Interval history: The patient is complaining of less pain over both of his legs . Denies any chest pain or shortness of breath. No fevers overnight. No dysuria or diarrhea , is not in distress - Constitutional Vitals: Temp Pulse Resp BP Pulse Ox 97.5 F L 89 14 174/83 99 08/10/16 15:10 08/10/16 15:10 08/10/16 15:10 08/10/16 15:10 08/10/16 15:10 General appearance: Present: A&O X 1, morbidly obese - Head Head exam: Present: atraumatic, normocephalic - Eye Eye exam: Present: PERRL, conjuntiva pink, sclera anicteric Pupils: Present: PERRL - Neck Neck exam general surgery: Present: supple, trachea midline. Absent: lymphadenopathy - Respiratory Respiratory exam: Present: CTAB. Absent: accessory muscle use, rales, rhonchi, wheezes - Cardiovascular Cardiovascular exam: Present: RRR, +S1, +S2. Absent: diastolic murmur, gallop, rubs, systolic murmur - GI/Abdominal GI/Abdominal exam: Present: distended, normal bowel sounds, soft, no peritoneal signs. Absent: tenderness - Extremities Exam Extremities exam: Present: warm, radial pulses palpable and symetrical. Absent : calf tenderness, cyanotic, pedal edema - Neurological Exam Neurological exam: Present: CN II-XII intact, oriented X3, no focal deficits. Absent: pronater drift, facial droop, speech deficit - Skin Skin exam: Absent: dry, intact Additional comments: Severe erythema in both lower extremities), excoriation (Severe edema in both lower extremities with severe chronic venous status is changes cellulitis in both shins, left knees extremely swollen showing blisters with yellowish contents Internal Medicine: Result - Labs CBC & Chem 7: 08/10/16 03:52 08/10/16 03:52 Labs: Short CBC 08/10/16 Range/Units 03:52 WBC 9.7 (4.3-11.1) K/mcL Hgb 10.9 L (12.9-16.9) g/dL Hct 36.6 L (37.5-50.1) % Plt Count 187 (140-400) K/mcL BMP 08/10/16 03:52 Sodium 138 Potassium 5.2 H Chloride 104 Carbon Dioxide 23 BUN 30 H Creatinine 0.93 Glucose 111 H Calcium 8.3 L Liver Function 08/10/16 Range/Units 03:52 Total Bilirubin 0.3 (0.2-1.2) mg/dL AST 759 H (5-34) Units/L ALT 796 H (0-55) Units/L Alkaline Phosphatase 130 H (38-126) Units/L Albumin 2.4 L (3.5-5.0) g/dL - ABG Interpretation ABG results: PT/INR, D-dimer PT 14.0 Seconds (9.4-12.1) H 08/08/16 21:17 Consult Discharge Plan - Plan Referrals: NO,PCP [Primary Care Provider] -
[2016-08-10] MEDS: Nystatin POWDER 30 GM BOTTLE TP SCH (15:34)
[2016-08-10] MEDS ORDERED: Furosemide 40 MG TABLET PO SCH (17:00)
[2016-08-10] MEDS: Piperacillin/Tazobactam 3.375 GM in D5% in Water (Mini-Bag+) 100 ML IVPB SCH (18:54)
[2016-08-10 20:39] LABS: ABG Base Excess 4.4 mEq/L (-2.0 to 3.0); ABG HCO3 33.9 mEQ/L (21-27); ABG Oxygen Saturation 86 % (95-98); ABG PH 7.24 pH Units (7.32-7.45); ABG PO2 60 mmHg (85-104); ABG TCO2 36.3 mEq/L (20-26)
[2016-08-10 20:40] LABS: Blood Gas FiO2 28 %
[2016-08-10 20:41] LABS: ABG PCO2 79 mmHg (35-45)
--- NOTE | 2016-08-10 21:29 | Event Note ---
Date of Encounter: 08/10/16 Time of Encounter: 21:22 Called to see patient for Respiratory distress. I ordered CXR and ABG. CXR viewed and reviewed -- low lungs volumes; ABG with respiratory acidosis. I reviewed patient chart and assessed patient. Patient admitted with sepsis and now has multi-organ dysfunction, including respiratory distress. He refuses to wear BiPap. His color is pale and he has increased work of breathing. His sister is his legal guardian and she is present. She states he has declined clinically throughout the day, and is nurse confirms that. In my assessment of patient, he would be a difficult airway for intubation given his Prader-Willi Syndrome. I am transferring him to ICU for continued ICU management and have spoken with anesthesia requesting their assistance in the event we need to intubate tonight. I will reassess him and repeat ABG later.
[2016-08-10] MEDS ORDERED: Lidocaine -MPF 4% 5 ML AMPUL ONE (22:17)
[2016-08-10] MEDS ORDERED: Lidocaine -MPF 2% 2 ML VIAL ONE ×2 (22:17)
[2016-08-10] MEDS ORDERED: *HR* Succinylcholine 200 MG/10 ML VIAL IVP ONE (22:17)
[2016-08-10] MEDS ORDERED: *HR* Propofol 200 MG/20 ML VIAL IVP ONE (22:17)
[2016-08-10] MEDS ORDERED: *HR* FentaNYL (PF) 100 MCG/2 ML VIAL ONE (22:17)
[2016-08-10] MEDS ORDERED: 0.9 % Sodium Chloride 1,000 ML ONE (22:40)
--- NOTE | 2016-08-10 23:07 | Anesthesia Procedures ---
Date of Encounter: 08/10/16 Time of Encounter: 22:30 Procedures: Anesthesia - Intubation Time out performed: No Sedative: Fentanyl Amount Sedative given: 100mcg + 2% Lidocaine 80mg Paralytic: other (None) Laryngoscope: video scope Laryngoscope Size: 3 Assist device used: video scope ET Tube Size: 7.5 ET tube uncuffed: No Tube secured depth (cm): 21 Tube secured location: lips Tube Placement Confirmation: visualized tube passing through cords, equal breath sounds bilaterally, confirmation by capnometry Patient tolerated procedure: other Additional comments: BUZZ Keenan contacted by [facility] floor nurse re: inpt being transferred to ICU in need of intubation re: increased work of breathing [refusing BiPap]/Sepsis. Together with DYE BECK REEL OPERATOR saw Pt in ICU #1, discussed hospital course with Hospitalist MD Stacy and Pt sister/POA/LEgal Guardian. [employer] requested intubation of Pt by Anesthesia and sister agreed with plan to do so. Other Family members at bedside prior to intubation sedation. PT O2 Sats intermittently reading 98-100%/4L NC on Monitor. Fentanyl 100mcg IV and 80mg 2%Lidocaine slowly admnistered by typewriter ribbon winder followed by apnea, bradycardia (witnessed in 30s) and asystole (<60 seconds later). Bag/Mask by typewriter ribbon winder & Siumultaneous CPR started. Chest compressions and 1 round Epi administered. Bag/Mask of pt immediately followed by copious amounts of chunky brown vomitus filling mouth, Face Mask, Nares. Pt vigorously suctioned and VC visualized w/C-Mac (D-Mac/Larger Blade). 7.5ETT thru well visualized VC. ETT & Oropharynx suctioned to remove additional vomitus. + ETCO2 change noted on colorimetric ETCO2 detector. Tube secured 21cm at lip by RT. Pt placed on vent by RT. Pt O2 Sat 100% and other VSS at typewriter ribbon winder departure. 3 Vital Signs CTSP end Time 2230 2300 BP 106/57 149/86 Pulse 90s 98bpm Resp 38-41 vent O2 Sat 84-93% 4L/NC 100% Laboratory Tests 08/10/16 08/10/16 08/10/16 03:52 03:52 20:29 WBC 9.7 Hgb 10.9 L Hct 36.6 L Plt Count 187 ABG pH 7.24 L ABG pCO2 79 H* ABG pO2 60 L ABG HCO3 33.9 H ABG Total CO2 36.3 H ABG O2 Saturation 86 L ABG Base Excess 4.4 H Sodium 138 Potassium 5.2 H Chloride 104 Carbon Dioxide 23 BUN 30 H Creatinine 0.93 Est GFR (Non-Af Amer) > 60
[2016-08-10] MEDS ORDERED: Lacri-Lube 3.5 GM TUBE BOTH EYES PRN (23:24)
[2016-08-10] MEDS ORDERED: Famotidine 20 MG/2 ML VIAL IVP SCH (23:30)
--- NOTE | 2016-08-10 23:37 | Event Note ---
Date of Encounter: 08/10/16 Time of Encounter: 23:00 CODE BLUE NOTE: Upon arrival to ICU, patient developed worsening respiratory difficulty. We summoned anesthesia to proceed with intubation. I left the ICU to attend to another ill patient on another floor at that point while anesthesia was preparing for intubation. I then responded to a code blue on this patient. Pt was in the midst of intubation per anesthesia when he vomited and aspirated during intubation. Per nursing report, he developed bradycardia and then asystole shortly thereafter. Upon my arrival to the bedside, chest compressions were in progress by RN. I continued resuscitative efforts per ACLS protocol. We continued chest compressions and administered epinephrine. Chest compressions continued after epinephrine. After 2 minutes, we checked for pulse and he had return of spontaneous circulation with stabilized rhythm, BP, and O2 sats. Pt received chest compressions and one dose of epinephrine. Airway was secured, and patient was ventilated. Vomitus was suctioned, OG was placed, and patient is currently stable on ventilator. We will continue with ICU care and ventilatory support. Family updated and informed of current status and events.
[2016-08-10 23:58] LABS: ABG Base Excess 7.4 mEq/L (-2.0 to 3.0); ABG HCO3 35.9 mEQ/L (21-27); ABG Oxygen Saturation 100 % (95-98); ABG PO2 377 mmHg (85-104); ABG TCO2 38.1 mEq/L (20-26); Blood Gas FiO2 100 %
[2016-08-10 23:59] LABS: ABG PCO2 73 mmHg (35-45)
[2016-08-11] MEDS: Gentamicin Oint 15 GM TUBE TP SCH ×3 (01:23→20:10)
[2016-08-11] MEDS: Nystatin POWDER 30 GM BOTTLE TP SCH ×3 (01:24→20:09)
[2016-08-11] MEDS: Piperacillin/Tazobactam 3.375 GM in D5% in Water (Mini-Bag+) 100 ML IVPB SCH ×4 (01:27→23:41)
[2016-08-11] MEDS: *HR* Heparin 5,000 UNIT/ML VIAL SQ SCH ×4 (01:59→23:42)
[2016-08-11] MEDS: Lacri-Lube 3.5 GM TUBE BOTH EYES SCH ×7 (02:05→23:41)
[2016-08-11] MEDS: Vancomycin 1,500 MG in D5% in Water 250 ML IVPB SCH (02:13)
[2016-08-11] MEDS: Ipratropium/Albuterol Neb 3 ML IH SCH ×4 (05:01→21:55)
[2016-08-11 05:13] LABS: Basophils # 0.1 K/mcL (0.0-0.2); Basophils % 0.5 %; Eosinophils # 0.8 K/mcL (0.0-0.6); Eosinophils % 6.7 %; Hematocrit 34.6 % (37.5-50.1); Lymphocytes # 1.5 K/mcL (0.6-4.6); Lymphocytes % 12.4 %; Mean Corpuscular HGB Conc 28.9 g/dL (31.6-35.5); Mean Corpuscular Hemoglobin 26.1 pg (28.0-33.3); Mean Corpuscular Volume 90.3 fL (83.0-100.0); Mean Platelet Volume 9.7 fL (9.4-12.4); Monocytes # 1.7 K/mcL (0.0-1.3); Monocytes % 13.8 %; Neutrophils # 8.1 K/mcL (1.6-8.9); Platelet Count 187 K/mcL (140-400); Red Blood Count 3.83 M/mcL (4.19-5.50); Segmented Neutrophils % 65.6 %
[2016-08-11 05:18] LABS: ABG Base Excess 2.5 mEq/L (-2.0 to 3.0); ABG HCO3 31.1 mEQ/L (21-27); ABG Oxygen Saturation 100 % (95-98); ABG PH 7.25 pH Units (7.32-7.45); ABG PO2 199 mmHg (85-104); ABG TCO2 33.3 mEq/L (20-26)
[2016-08-11 05:21] LABS: Blood Gas FiO2 45 %
[2016-08-11 05:22] LABS: ABG PCO2 71 mmHg (35-45)
[2016-08-11 05:25] LABS: Alanine Aminotransferase 692 Units/L (0-55); Albumin 2.2 g/dL (3.5-5.0); Albumin/Globulin Ratio 0.6 (1.1-2.2); Alkaline Phosphatase 125 Units/L (38-126); Aspartate Amino Transferase 422 Units/L (5-34); BUN/Creatinine Ratio 28 (6-26); Bilirubin,Total 0.3 mg/dL (0.2-1.2); Blood Urea Nitrogen 31 mg/dL (8-26); Calcium 7.9 mg/dL (8.6-10.8); Carbon Dioxide 27 mEq/L (19-29); Chloride 105 mEq/L (98-109); Globulin 3.5 g/dL (2.4-3.5); Glucose 109 mg/dL (70-99); Osmolality,Calculated 299 (280-300); Sodium 141 mEq/L (136-145); Total Protein 5.7 g/dL (6.0-8.3); eGFR For African Americans > 60 (> 60); eGFR For Non-African Americans > 60 (> 60)
[2016-08-11 05:48] LABS: Platelet Estimate Normal (Normal)
[2016-08-11 05:49] LABS: Poikilocytosis 1+ (Not Present); Polychromasia 1+ (Not Present)
--- NOTE | 2016-08-11 06:25 | Pulmonology Consult Note ---
<RominaclaritaEnrique faith M - Last Filed: 08/11/16 12:07> Date of Encounter: 08/11/16 Medications and Allergies Multivitamin [Multi-Day Vitamins] 1 each PO DAILY 01/07/16 [History] Ascorbic Acid [Vitamin C] 500 mg PO DAILY #30 tablet 01/09/16 [Rx] Folic Acid 0.4 mg PO DAILY #30 tablet 01/09/16 [Rx] Ferrous Gluconate 324 mg PO BID #60 tablet 02/15/16 [Rx] Lactobacillus [Culturelle] 1 each PO BID cap.sprink 06/01/16 [Rx] Potassium Chloride 20 meq PO DAILY #30 tab.er.prt 06/01/16 [Rx] Zinc Sulfate 220 mg PO DAILY capsule 06/01/16 [Rx] Acetaminophen [Acetaminophen ER] 650 mg PO Q6H PRN 06/14/16 [History] Albuterol Sulfate [Ventolin Hfa] 2 puff IH Q4H 06/14/16 [History] Docusate [Colace] 100 mg PO BID PRN 06/14/16 [History] Famotidine [Heartburn Prevention] 20 mg PO BID 06/14/16 [History] Albuterol Neb [Proventil Neb] 2.5 mg IH Q2H PRN 08/08/16 [History] Collagenase Oint [Santyl] 1 appl TP AD 08/08/16 [History] Furosemide [Lasix] 40 mg PO BID 08/08/16 [History] Gentamicin Oint [Garamycin] 1 appl TP AD 08/08/16 [History] Ipratropium/Albuterol Neb [Duoneb] 3 ml IH QID 08/08/16 [History] Oxygen 2 l NS AD 08/08/16 [History] Allergies cephalexin [From Keflex] Allergy (Verified 08/08/16 12:30) See Comments Pt unsure of reaction. chlorpromazine [From Thorazine] Allergy (Verified 08/08/16 12:30) See Comments Martin Allergy (Verified 08/08/16 12:30) See Comments Beans Allergy (Uncoded 08/08/16 12:30) See Comments All Systems: A 10-system review of systems was performed and is negative for pertinent findings except as documented above in the HPI. Physical Examination Vital Signs: Vital Signs, Last 4 Hours Temp Pulse Resp BP Pulse Ox 08/11/16 12:02 97.2 F L 63 12 90/53 100 08/11/16 12:00 63 12 101/63 98 08/11/16 11:33 97.2 F L 63 12 90/53 100 08/11/16 11:31 62 08/11/16 11:05 12 80/56 99 08/11/16 10:42 12 82/56 99 08/11/16 10:00 62 12 82/53 100 08/11/16 09:55 12 82/53 99 08/11/16 09:00 64 16 94/66 100 Ventilator Settings Ventilator Settings: Ventilator Settings, Last 8 Hours Ventilator Mode VC+ Ventilator Mode VC+ Ventilator Mode VC+ Ventilator Mode VC+ Ventilator Mode VC+ Ventilator Mode VC+ Ventilator Mode A/C Ventilator Mode A/C Ventilator Mode A/C Ventilator Mode A/C Ventilator Mode A/C Ventilator Mode A/C Ventilator Mode A/C Ventilator Tidal Volume 450 Setting Ventilator Tidal Volume 450 Setting Ventilator Tidal Volume 450 Setting Ventilator Tidal Volume 450 Setting Ventilator Tidal Volume 450 Setting Ventilator Tidal Volume 450 Setting Ventilator Tidal Volume 500 Setting Ventilator Tidal Volume 500 Setting Ventilator Tidal Volume 500 Setting Ventilator Tidal Volume 500 Setting Ventilator Tidal Volume 500 Setting Ventilator Tidal Volume 500 Setting Ventilator Tidal Volume 500 Setting Ventilator Respiratory Rate 12 Setting Ventilator Respiratory Rate 12 Setting Ventilator Respiratory Rate 12 Setting Ventilator Respiratory Rate 12 Setting Ventilator Respiratory Rate 12 Setting Ventilator Respiratory Rate 12 Setting Ventilator Respiratory Rate 16 Setting Ventilator Respiratory Rate 16 Setting Ventilator Respiratory Rate 16 Setting Ventilator Respiratory Rate 12 Setting Ventilator Respiratory Rate 12 Setting Ventilator Respiratory Rate 12 Setting Ventilator Respiratory Rate 12 Setting Actual Respiratory Rate 12 Actual Respiratory Rate 12 Actual Respiratory Rate 12 Actual Respiratory Rate 12 Actual Respiratory Rate 12 Actual Respiratory Rate 16 Actual Respiratory Rate 16 Actual Respiratory Rate 12 Actual Respiratory Rate 12 Actual Respiratory Rate 12 Positive End Expiratory 5 Pressure Positive End Expiratory 5 Pressure Positive End Expiratory 5 Pressure Positive End Expiratory 5 Pressure Positive End Expiratory 5 Pressure Positive End Expiratory 5 Pressure Positive End Expiratory 5 Pressure Positive End Expiratory 5 Pressure Positive End Expiratory 5 Pressure Positive End Expiratory 5 Pressure Positive End Expiratory 5 Pressure Positive End Expiratory 5 Pressure Positive End Expiratory 5 Pressure Peak Inspiratory Airway 33 Pressure Peak Inspiratory Airway 33 Pressure Peak Inspiratory Airway 37 Pressure Peak Inspiratory Airway 36 Pressure Peak Inspiratory Airway 35 Pressure Peak Inspiratory Airway 37 Pressure Peak Inspiratory Airway 38 Pressure Peak Inspiratory Airway 38 Pressure Peak Inspiratory Airway 41 Pressure Peak Inspiratory Airway 36 Pressure Results - Laboratory Findings CBC and BMP: 08/11/16 05:04 08/11/16 05:04 ABG ABG pH 7.40 pH Units (7.32-7.45) 08/11/16 10:25 ABG pCO2 49 mmHg (35-45) H 08/11/16 10:25 ABG pO2 93 mmHg (85-104) 08/11/16 10:25 ABG O2 Saturation 97 % (95-98) 08/11/16 10:25 PT/INR, D-dimer PT 14.0 Seconds (9.4-12.1) H 08/08/16 21:17 Abnormal lab findings: Abnormal lab results WBC 12.3 K/mcL (4.3-11.1) H 08/11/16 05:04 RBC 3.83 M/mcL (4.19-5.50) L 08/11/16 05:04 Hgb 10.0 g/dL (12.9-16.9) L 08/11/16 05:04 Hct 34.6 % (37.5-50.1) L 08/11/16 05:04 MCH 26.1 pg (28.0-33.3) L 08/11/16 05:04 MCHC 28.9 g/dL (31.6-35.5) L 08/11/16 05:04 RDW 16.0 % (11.5-14.5) H 08/11/16 05:04 Monocytes # 1.7 K/mcL (0.0-1.3) H 08/11/16 05:04 Eosinophils # 0.8 K/mcL (0.0-0.6) H 08/11/16 05:04 Nucleated RBCs/100 WBC 0.2 /100 WBC (0) H 08/09/16 11:27 Polychromasia 1+ (Not Present) A 08/11/16 05:04 Poikilocytosis 1+ (Not Present) A 08/11/16 05:04 Anisocytosis 1+ (Not Present) A 08/08/16 13:55 PT 14.0 Seconds (9.4-12.1) H 08/08/16 21:17 ABG pCO2 49 mmHg (35-45) H 08/11/16 10:25 ABG HCO3 30.4 mEQ/L (21-27) H 08/11/16 10:25 ABG Total CO2 31.9 mEq/L (20-26) H 08/11/16 10:25 ABG Base Excess 4.8 mEq/L (-2.0 to 3.0) H 08/11/16 10:25 BUN 31 mg/dL (8-26) H 08/11/16 05:04 BUN/Creatinine Ratio 28 (6-26) H 08/11/16 05:04 Glucose 109 mg/dL (70-99) H 08/11/16 05:04 POC Glucose 141 (58-89) H 08/10/16 21:54 Calcium 7.9 mg/dL (8.6-10.8) L 08/11/16 05:04 AST 422 Units/L (5-34) H 08/11/16 05:04 ALT 692 Units/L (0-55) H 08/11/16 05:04 Serum Total Protein 5.7 g/dL (6.0-8.3) L 08/11/16 05:04 Albumin 2.2 g/dL (3.5-5.0) L 08/11/16 05:04 Albumin/Globulin Ratio 0.6 (1.1-2.2) L 08/11/16 05:04 - Microbiology Findings Microbiology Findings: Microbiology, Last 48 Hours 08/09/16 18:24 Wound Culture - Preliminary Other-Specify in Comments Gram Positive Cocci - Clinical Findings Intake & Output: Intake & Output 08/10/16 08/11/16 08/11/16 23:59 07:59 15:59 Intake Total 350 / 350 350 / 350 186 / 186 Output Total 800 / 800 Balance 350 / 350 -450 / -450 186 / 186 Weight 105.4 kg Consult Discharge Plan - Plan Referrals: NO,PCP [Primary Care Provider] - - Attending Attestation I examined this patient and my medical decision-making was reviewed with the AUTOMOBILE MECHANIC/PA/Advanced Practice Nurse/Resident Physician. I agree with the documented findings, disposition and treatment plan as described except to the extent set forth below. Patient seen and examined. Labs, radiology, chart personally reviewed. 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 I suspect rebound metabolic alkalosis from overcorrection of his respiratory acidosis and changed vent setting to lower respiratory rate and tidal volume to repeat ABG Cardiovascular: Relatively stable GI: Nutrition per dietary and GI prophylaxis per routine Heme: DVT prophylaxis per routine ID: Continue antibiotics and plan to de-escalation. Appreciate infectious disease input Renal; urine out put and renal funtion reviewed Endorcine: blood glucose is monitored Lines: all lines checked and no evidence of infections Skin: skin care to prevent pressure ulcers per nursing routine care I spent 35 min of Critical Care time with this patient. It involved decision making of high complexity to assess, manipulate, and support vital organ system failure and/or to prevent further life threatening deterioration of the patient' s condition. The time involved in the performance of separately reportable procedures was not counted toward critical care time. <Barron Husain - Last Filed: 08/11/16 13:29> Date of Encounter: 08/11/16 Time of Encounter: 06:25 Assessment and Plan (1) Acute on chronic respiratory failure with hypoxemia Current Visit: Yes Status: Acute improving, patient is currently intubated due to hypoxemia and hypercapnia likely secondary to chronic respiratory failure secondary to cor pulmonale and OHS as well as pulmonary edema/vascular congestion - prior ECHO 05/25/2016 sub-optimal, LV grossly normal, systolic normal, severe pulm HTN RVSP 75 mmHg - ECHO 08/08/2015 EF 55% with mild pulm HTN RVSP 42 mmHg CXR 08/11 demonstrated properly placed ETT, OG, and vascular congestion/ pulmonary edema scheduled duonebs continue pulm toilet, Lasix and velasquez catheter placement current vent settings changed to 12/450/30%/5 PEEP for respiratory alkalosis likely due to overcorrection of respiratory acidosis - ABG prior to change 7.48/40/92/29.8/5.8 base excess - 1 hour repeat ABG 7.48/40/92/29.8/5.8 - will continue to monitor with ABG slowly titrate sedation for possible extubation tomorrow (2) Acute on chronic respiratory failure with hypercapnia Current Visit: Yes Status: Acute improving, acute on chronic hypercapnia noncompliant with BiPAP here plan as above (3) Sepsis Current Visit: Yes Status: Resolved meets SIRS criteria with fever 101.2 last night, tachycardia >90, and now leukocytosis blood cultures NGTD x2 suspect MRSA in wound, awaiting final report and sensitivities currently is afebrile and bradycardic, only leukocytosis on Day 4 of antibiotics, Vancomycin and Zosyn - ID recommended discontinuation of Meropenem on day 3 and Zosyn was started - pharmacy to dose Vancomycin - will continue to monitor renal function Vascular consulted for PICC line for retirement antibiotics lactate normal 1.1 Qualifiers: Sepsis type: sepsis due to unspecified organism Qualified Code(s): A41.9 - Sepsis, unspecified organism (4) Cardiopulmonary arrest with successful resuscitation Current Visit: Yes Status: Acute cardiac arrest s/p intubation last night patient was bradycardic --> asystole successful resuscitation after 1 round of CPR and 1 EPI continue to monitor neurologic and cardiopulmonary status currently on sedation and slowly wean to assess neurologic function when respiratory status improves (5) Cellulitis Current Visit: No Status: Acute cellulitic changes to bilateral lower extremity chronic venous stasis continue wound care L knee x-ray shows no joint effusion day 4 of antibiotics, Vancomycin and Zosyn - suspect MRSA, awaiting wound cultures which have grown GPC Infectious Disease and Wound Care/Podiatry have been consulted, recommendations appreciated Qualifiers: Site of cellulitis: extremity Site of cellulitis of extremity: lower extremity Laterality: unspecified laterality Qualified Code(s): L03.119 - Cellulitis of unspecified part of limb (6) Chronic wound of extremity Current Visit: No Status: Chronic continue wound care Infectious Disease and Podiatry/Wound Care has been consulted (7) Infected stasis ulcer of left lower extremity Current Visit: No Status: Acute plan as above (8) Leukocytosis Current Visit: Yes Status: Resolved leukocytosis 12.3 (9.7) likely due to post cardiac arrest will continue to monitor Qualifiers: Leukocytosis type: unspecified Qualified Code(s): D72.829 - Elevated white blood cell count, unspecified (9) Morbid obesity with BMI of 50.0-59.9, adult Current Visit: Yes Status: Chronic Nutrition consulted GI prophylaxis with IV Protonix (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 (11) Hypotension Current Visit: Yes Status: Acute post-intubation patient has been hypotensive as low as 84/54 likely secondary to propofol sedation switched sedation to fentanyl and versed will continue to monitor and if persists, pressors may be needed but do not anticipate limit IV fluids due to CXR suggestive of pulmonary edema and history of diastolic heart failure and cor pulmonale Qualifiers: Hypotension type: hypotension due to drug Qualified Code(s): I95.2 - Hypotension due to drugs (12) Transaminitis Current Visit: Yes Status: Acute unclear etiology no evidence of shock liver negative hepatitis panel no abnormalities on the liver ultrasound, however, limited due to patient comfort GI has been consulted EBV antibodies ordered, results pending hold Tylenol or any hepatic toxic medications (13) STEPHANIE (acute kidney injury) Current Visit: Yes Status: Resolved likely secondary to sepsis resolved will continue to monitor Vancomycin, awaiting trough pharmacy to dose (14) Difficulty with insertion of urinary catheter Current Visit: Yes Status: Acute currently unable to monitor UOP patient is incontinent multiple unsuccessful attempts to catheterize Urology consulted and appreciated for urinary catheter placement (15) Difficult intravenous access Current Visit: Yes Status: Acute Vascular reconsulted, midline not drawing and will be switched for PICC line for long-term antibiotics (16) Chronic anemia Current Visit: Yes Status: Acute likely anemia of chronic disease stable at 10 (10.9) required transfusion Hgb as low as 3.4 in the past 01/07/2016 (17) Goals of care, counseling/discussion Current Visit: Yes Status: Acute sister Kerri BENAVIDES discussed recent events and long-term goals of care, wish for FULL CODE (18) DVT prophylaxis Current Visit: No Status: Acute heparin subq for DVT prophylaxis CRUSHER PLANT OPERATOR: sedated on Propofol, no acute distress, switch to Fentanyl and Versed Cardio: BPs remain 80-90s, likley secondary to Propofol, if unresponsive to medication change may consider pressors Pulm: bilateral rhonchi, acceptable ventilation and oxygenation, the metabolic alkalosis is likely from overcorrection of his respiratory acidosis and vent setting changes were appropriately made, review of CXR reveals diffuse pulmonary edema will conntinue pulm toilet GI: Nutrition consulted for tube feeds and free water, GI prophylaxis Heme: DVT prophylaxis, Heparin SQ ID: cellulitis of chronic venous stasis ulcers, ID on board, wound culture + GPC likely MRSA Renal: unable to monitor UOP due to incontinence, velasquez to be placed by Urology , continue Lasix Endo: blood glucose monitored Lines: replacing midline for PICC, all lines checked and no evidence of infections, Skin: skin care per nursing routine care, wound care for LE Lytes: continue to monitor and replete PRN History of Present Illness Consult date: 08/11/16 Requesting physician: Eben Suarez Reason for consult: dyspnea, hypoxemia Chief complaint: respiratory failure History of present illness: 46-year-old male history of Prader-Willi Syndrome, morbid obesity, chronic venous stasis, and diastolic heart failure with cor pulmonale was admitted to [place] from [facility] for concerns of fevers, sepsis, and infected leg wound. He has been getting wound care by Dr. Terrazas at [facility]. He has been receiving IV antibiotics for possible infected leg wound and sepsis , this is antibiotic day 4. He has received 2 days of Meropenem due to sensitivity from prior cultures and then switched to IV Zosyn yesterday 08/10, and also has received 3 days of Vancomycin. Wound culture has grown GPC preliminary, presumptively MRSA. Last night 08/10/2016 patient was in respiratory distress and transferred to ICU. He has been noncompliant with BiPAP and was subsequently intubated with anesthesia bedside due to respiratory status and respiratory acidosis on ABG. Complicated due to vomitus in the airway but he was successfully intubated confirmed by colorimetry and CXR. Review of CXR shows correct placement of endotraceal tube as well as diffuse pulmonary edema. All information contained in this H&P from attending medical staff and prior medical records. No family is at bedside. Patient is intubated. Currently he is sedated on propofol and appears in no acute distress. He is incontinent and will require a velasquez catheter that was attempted by nursing staff, unsuccessfully. He is afebrile and low BP 80-90s, this is likely due to propofol and possible high ventilation, will adjust and monitor. His sister is POA. Past Med Surg Social Fam HX - Past Medical History Medical history: CHF, dementia, GERD, GI bleed, myocardial infarction, venous stasis, other Psychiatric history: no psych history, other - Past Surgical History Surgical History: cholecystectomy, other - Social History Smoking Status: Never smoker Smokeless Tobacco Status: No Alcohol use: none Drug use: none - Family History Father History Unknown: Yes Living Status: Still Living Hx Family Cardiac Disorders: Yes (htn) Hx Family Cancer: Yes (thyroid ca) Mother Living Status: Hx Family Cardiac Disorders: Yes (chf) Hx Family Respiratory Disorders: Yes (pneumonia) Hx Family Endocrine Disorder: Yes (diabetic) ROS unobtainable: due to endotracheal tube All Systems: A 10-system review of systems was performed and is negative for pertinent findings except as documented above in the HPI. Physical Examination Vital Signs: Vital Signs, Last 4 Hours Temp Pulse Resp BP Pulse Ox 08/11/16 06:00 67 16 84/54 100 08/11/16 05:05 98 F 08/11/16 05:02 12 99 08/11/16 05:00 81 12 108/58 100 08/11/16 04:00 65 12 102/65 100 08/11/16 03:00 65 12 100/67 100 08/11/16 02:54 12 100 General appearance: no acute distress (sedated on propofol), other (morbidly obese, phenotypic female features) Eyes: nonicteric, other (PERRL) ENT: other (endotracheal tube in place, 21 cm at the lip, OG in place) Effort: other (mechanical ventilation) Inspection: other (symmetrical chest rise) Auscultation: bilateral: rhonchi Cardiovascular: regular rate and rhythm Gastrointestinal: hypoactive bowel sounds, non-tender Integumentary: erythema (blanchable to bilateral LE), cellulitis, other ( chronic venous stasis ulcers to bilateral LE with cellulitic changes, L leg ankle to lower 1/3 thigh, R leg ankle to knee; diffuse excoriations visualized to bilateral LE; no joint effusion appreciated, no crepitus, erythema or induration above the knee or in the groin/perineal area) Extremities: edema, anasarca, other (difficult to palpate pulses due to edema and body habitus, wounds are malodorous and weeping located on bilateral legs, oval wound to the mid right anterior singh, oval wound to the lateral lower right leg, stellate wound to the left lower leg that is circumferential, there is good granulation tissue, ) pupils equal and round, unable to assess due to mental status EPIV in basilic right upper arm Power wand in in the right upper arm Ventilator Settings Ventilator Settings: Ventilator Settings, Last 8 Hours Ventilator Mode A/C Ventilator Mode A/C Ventilator Mode A/C Ventilator Mode A/C Ventilator Mode A/C Ventilator Mode A/C Ventilator Mode A/C Ventilator Mode A/C Ventilator Mode A/C Ventilator Mode A/C Ventilator Mode A/C Ventilator Mode A/C Ventilator Mode A/C Ventilator Mode A/C Ventilator Tidal Volume 500 Setting Ventilator Tidal Volume 500 Setting Ventilator Tidal Volume 500 Setting Ventilator Tidal Volume 500 Setting Ventilator Tidal Volume 500 Setting Ventilator Tidal Volume 500 Setting Ventilator Tidal Volume 500 Setting Ventilator Tidal Volume 500 Setting Ventilator Tidal Volume 500 Setting Ventilator Tidal Volume 500 Setting Ventilator Tidal Volume 500 Setting Ventilator Tidal Volume 500 Setting Ventilator Tidal Volume 500 Setting Ventilator Tidal Volume 500 Setting Ventilator Respiratory Rate 12 Setting Ventilator Respiratory Rate 12 Setting Ventilator Respiratory Rate 12 Setting Ventilator Respiratory Rate 12 Setting Ventilator Respiratory Rate 12 Setting Ventilator Respiratory Rate 12 Setting Ventilator Respiratory Rate 12 Setting Ventilator Respiratory Rate 12 Setting Ventilator Respiratory Rate 12 Setting Ventilator Respiratory Rate 12 Setting Ventilator Respiratory Rate 12 Setting Ventilator Respiratory Rate 12 Setting Ventilator Respiratory Rate 12 Setting Ventilator Respiratory Rate 12 Setting Actual Respiratory Rate 12 Actual Respiratory Rate 12 Actual Respiratory Rate 12 Actual Respiratory Rate 12 Actual Respiratory Rate 12 Actual Respiratory Rate 12 Actual Respiratory Rate 12 Actual Respiratory Rate 12 Actual Respiratory Rate 12 Actual Respiratory Rate 12 Actual Respiratory Rate 12 Actual Respiratory Rate 12 Positive End Expiratory 5 Pressure Positive End Expiratory 5 Pressure Positive End Expiratory 5 Pressure Positive End Expiratory 5 Pressure Positive End Expiratory 5 Pressure Positive End Expiratory 5 Pressure Positive End Expiratory 5 Pressure Positive End Expiratory 5 Pressure Positive End Expiratory 5 Pressure Positive End Expiratory 5 Pressure Positive End Expiratory 5 Pressure Positive End Expiratory 5 Pressure Positive End Expiratory 5 Pressure Positive End Expiratory 5 Pressure Peak Inspiratory Airway 38 Pressure Peak Inspiratory Airway 41 Pressure Peak Inspiratory Airway 36 Pressure Peak Inspiratory Airway 45 Pressure Peak Inspiratory Airway 45 Pressure Peak Inspiratory Airway 40 Pressure Peak Inspiratory Airway 40 Pressure Peak Inspiratory Airway 35 Pressure Peak Inspiratory Airway 41 Pressure Peak Inspiratory Airway 39 Pressure Peak Inspiratory Airway 50 Pressure Results - Laboratory Findings CBC and BMP: 08/11/16 05:04 08/11/16 05:04 ABG ABG pH 7.25 pH Units (7.32-7.45) L 08/11/16 05:13 ABG pCO2 71 mmHg (35-45) H* 08/11/16 05:13 ABG pO2 199 mmHg (85-104) H 08/11/16 05:13 ABG O2 Saturation 100 % (95-98) H 08/11/16 05:13 PT/INR, D-dimer PT 14.0 Seconds (9.4-12.1) H 08/08/16 21:17 Abnormal lab findings: Abnormal lab results WBC 12.3 K/mcL (4.3-11.1) H 08/11/16 05:04 RBC 3.83 M/mcL (4.19-5.50) L 08/11/16 05:04 Hgb 10.0 g/dL (12.9-16.9) L 08/11/16 05:04 Hct 34.6 % (37.5-50.1) L 08/11/16 05:04 MCH 26.1 pg (28.0-33.3) L 08/11/16 05:04 MCHC 28.9 g/dL (31.6-35.5) L 08/11/16 05:04 RDW 16.0 % (11.5-14.5) H 08/11/16 05:04 Monocytes # 1.7 K/mcL (0.0-1.3) H 08/11/16 05:04 Eosinophils # 0.8 K/mcL (0.0-0.6) H 08/11/16 05:04 Nucleated RBCs/100 WBC 0.2 /100 WBC (0) H 08/09/16 11:27 Polychromasia 1+ (Not Present) A 08/11/16 05:04 Poikilocytosis 1+ (Not Present) A 08/11/16 05:04 Anisocytosis 1+ (Not Present) A 08/08/16 13:55 PT 14.0 Seconds (9.4-12.1) H 08/08/16 21:17 ABG pH 7.25 pH Units (7.32-7.45) L 08/11/16 05:13 ABG pCO2 71 mmHg (35-45) H* 08/11/16 05:13 ABG pO2 199 mmHg (85-104) H 08/11/16 05:13 ABG HCO3 31.1 mEQ/L (21-27) H 08/11/16 05:13 ABG Total CO2 33.3 mEq/L (20-26) H 08/11/16 05:13 ABG O2 Saturation 100 % (95-98) H 08/11/16 05:13 BUN 31 mg/dL (8-26) H 08/11/16 05:04 BUN/Creatinine Ratio 28 (6-26) H 08/11/16 05:04 Glucose 109 mg/dL (70-99) H 08/11/16 05:04 POC Glucose 141 (58-89) H 08/10/16 21:54 Calcium 7.9 mg/dL (8.6-10.8) L 08/11/16 05:04 AST 422 Units/L (5-34) H 08/11/16 05:04 ALT 692 Units/L (0-55) H 08/11/16 05:04 Serum Total Protein 5.7 g/dL (6.0-8.3) L 08/11/16 05:04 Albumin 2.2 g/dL (3.5-5.0) L 08/11/16 05:04 Albumin/Globulin Ratio 0.6 (1.1-2.2) L 08/11/16 05:04 - Microbiology Findings Microbiology Findings: Microbiology, Last 48 Hours 08/09/16 18:24 Wound Culture - Preliminary Other-Specify in Comments Gram Positive Cocci - Diagnostic Findings Chest x-ray: report reviewed, image reviewed - Clinical Findings Intake & Output: Intake & Output 08/10/16 08/10/16 08/11/16 15:59 23:59 07:59 Intake Total 250 / 250 350 / 350 350 / 350 Output Total 800 / 800 Balance 250 / 250 350 / 350 -450 / -450 Weight 105.4 kg
[2016-08-11 08:04] LABS: ABG Base Excess 5.8 mEq/L (-2.0 to 3.0); ABG HCO3 29.8 mEQ/L (21-27); ABG Oxygen Saturation 98 % (95-98); ABG PCO2 40 mmHg (35-45); ABG PH 7.48 pH Units (7.32-7.45); ABG PO2 92 mmHg (85-104)
[2016-08-11 08:05] LABS: Blood Gas FiO2 30 %; Blood Gas PEEP 5 cm H2O; Blood Gas Respiration Rate 16; Blood Gas VT 500 cc
[2016-08-11] MEDS: Chlorhexidine Rinse 15 ML MOUTHWASH MM SCH ×2 (08:18→20:10)
[2016-08-11] MEDS: Folic Acid 1 MG TABLET PO SCH (08:20)
[2016-08-11] MEDS ORDERED: Calcium Gluconate 1,000 MG in D5% in Water 100 ML IVPB PRN (08:24)
[2016-08-11] MEDS ORDERED: Potassium Phosphate 44 MEQ in 0.9 % Sodium Chloride 250 ML IVPB PRN (08:24)
[2016-08-11] MEDS ORDERED: Famotidine 20 MG/2 ML VIAL IVP SCH (09:00)
[2016-08-11] MEDS: Pantoprazole 40 MG VIAL IVP SCH (10:16)
[2016-08-11 10:29] LABS: ABG Base Excess 4.8 mEq/L (-2.0 to 3.0); ABG HCO3 30.4 mEQ/L (21-27); ABG Oxygen Saturation 97 % (95-98); ABG PCO2 49 mmHg (35-45); ABG PO2 93 mmHg (85-104); ABG TCO2 31.9 mEq/L (20-26)
[2016-08-11 10:30] LABS: Blood Gas FiO2 30 %; Blood Gas PEEP 5 cm H2O; Blood Gas Respiration Rate 12; Blood Gas VT 450 cc
--- NOTE | 2016-08-11 10:32 | Gastroenterology Consult Note ---
<Lynne Pino - Last Filed: 08/11/16 10:42> Date of Encounter: 08/11/16 Time of Encounter: 09:40 - Assessment and plan (1) Septic shock Current Visit: No Status: Resolved (2) Sepsis Current Visit: No Status: Acute Assessment and plan: Preliminary MRSA Qualifiers: Sepsis type: sepsis due to unspecified organism Qualified Code(s): A41.9 - Sepsis, unspecified organism (3) SIRS due to infectious process with acute organ dysfunction Current Visit: No Status: Acute Assessment and plan: Hogs[facility] Packer management. 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 Qualifiers: Anemia type: unspecified type Qualified Code(s): D64.9 - Anemia, unspecified (6) Transaminitis Current Visit: Yes Status: Acute Assessment and plan: Likely shock liver. Negative viral hepatitis profile, check acetaminophen level. Imaging negative, bilirubin and alk phos wnl. Serial hepatic panels recommended. - Time Spent With Patient Total time spent is greater than 50% in coordination of care (as documented) at patient's floor/unit and/or counseling patient: less than 15 minutes GI History of Present Illness - Data of Consult Patient: new to practice Consult date: 08/11/16 Requesting Physician: Anjum Schneider - Consult Narrative Reason for consult: Transaminitis History of present illness: Mr. Junior is a 46 year old male with a PMH of Prader-Willi Syndrome, morbid obesity, chronic venous stasis, and diastolic heart failure with cor pulmonale was admitted to [place] from [facility] for concerns of fevers, sepsis, and infected leg wound. He has been getting wound care by Dr. Terrazas at [facility]. He has been receiving IV antibiotics for possible infected leg wound and sepsis, this is antibiotic day 4. infectious disease has been consulted. Wound culture has grown GPC preliminary, presumptively MRSA. Last night 08/10/2016 patient was in respiratory distress and transferred to ICU. He has been noncompliant with BiPAP and was subsequently intubated with anesthesia bedside due to respiratory status and respiratory acidosis on ABG. Complicated due to vomitus in the airway but he was successfully intubated and remains intubated and sedated at the time of my exam. Patient resting comfortably, no family at bedside. All information contained in this H&P from attending medical staff and prior medical records. Patient had prior Cscope 2014 wnl, no records of prior EGD evaluation for anemia, however. Dr. Ayers was consulted 01/2016 and planned for OTPT procedures at that time. It does not appear the procedures were completed. Colonoscopy: 2014 - - wnl EGD: None noted Past Med Surg Social Fam HX - Past Medical History Medical history: CHF, dementia, GERD, GI bleed, myocardial infarction, venous stasis, other Psychiatric history: no psych history, other - Past Surgical History Surgical History: cholecystectomy, other - Social History Smoking Status: Never smoker Smokeless Tobacco Status: No Alcohol use: none Drug use: none - Family History Father History Unknown: Yes Living Status: Still Living Hx Family Cardiac Disorders: Yes (htn) Hx Family Cancer: Yes (thyroid ca) Mother Living Status: Hx Family Cardiac Disorders: Yes (chf) Hx Family Respiratory Disorders: Yes (pneumonia) Hx Family Endocrine Disorder: Yes (diabetic) ROS unobtainable: due to endotracheal tube - Constitutional Vitals: Temp Pulse Resp BP Pulse Ox 97.4 F L 62 12 82/53 100 08/11/16 07:22 08/11/16 10:00 08/11/16 10:00 08/11/16 10:00 08/11/16 10:00 Exam: intubated and sedated. - Head Head exam: Present: atraumatic, normocephalic - Eye Eye exam: Present: normal appearance, sclera anicteric - ENT ENT exam: Present: mucous membranes dry - Neck Neck exam general surgery: Present: normal inspection, trachea midline - Respiratory Additional comments: intubated - Cardiovascular Cardiovascular exam: Present: RRR, +S1, +S2 - GI/Abdominal GI/Abdominal exam: Present: distended, soft - Rectal Rectal exam: Present: deferred - Extremities Exam Additional comments: L and R lower legs bandaged. - Neurological Exam Additional comments: unable to assess - Psychiatric Additional comments: unable to assess - Skin Skin exam: Present: dry Results - Labs CBC & Chem 7: 08/11/16 05:04 08/11/16 05:04 Labs: Last Result Calcium 7.9 mg/dL (8.6-10.8) L 08/11/16 05:04 Entire Visit Hgb 10.0 g/dL (12.9-16.9) L 08/11/16 05:04 Hct 34.6 % (37.5-50.1) L 08/11/16 05:04 PT 14.0 Seconds (9.4-12.1) H 08/08/16 21:17 Total Bilirubin 0.3 mg/dL (0.2-1.2) 08/11/16 05:04 AST 422 Units/L (5-34) H 08/11/16 05:04 ALT 692 Units/L (0-55) H 08/11/16 05:04 - ABG ABG results: ABG ABG pH 7.48 pH Units (7.32-7.45) H D 08/11/16 07:48 ABG pCO2 40 mmHg (35-45) D 08/11/16 07:48 ABG pO2 92 mmHg (85-104) 08/11/16 07:48 ABG O2 Saturation 98 % (95-98) 08/11/16 07:48 PT/INR, D-dimer PT 14.0 Seconds (9.4-12.1) H 08/08/16 21:17 - Impressions Impressions Chest X-Ray 08/10/16 20:12 IMPRESSION: Low lung volumes with bibasilar atelectasis and/or pneumonia D/ / Sincere Quintero MD / Sincere Quintero MD Interpreting Provider: Sincere Quintero MD Chest X-Ray 08/10/16 23:18 IMPRESSION: Satisfactory position, endotracheal tube just over 3 cm above the davida. Bilateral central airspace disease greater on the right, unchanged. D/ / Torres Mar MD / Torres Mar MD Interpreting Provider: Torres Mar MD Chest X-Ray 08/11/16 05:44 IMPRESSION: Moderate congestive failure increased from the prior study. D/ / Torres Mar MD / Torres Mar MD Interpreting Provider: Torres Mar MD Consult Discharge Plan - Plan Referrals: NO,PCP [Primary Care Provider] - <AngelaDavid - Last Filed: 08/11/16 12:02> Date of Encounter: 08/11/16 Time of Encounter: 10:25 - Time Spent With Patient Total time spent is greater than 50% in coordination of care (as documented) at patient's floor/unit and/or counseling patient: GI History of Present Illness - Data of Consult Requesting Physician: Anjum Schneider - Consult Narrative History of present illness: Mr. Junior is a 46 year old male - Constitutional Vitals: Temp Pulse Resp BP Pulse Ox 97.2 F L 63 12 90/53 100 08/11/16 11:33 08/11/16 11:33 08/11/16 11:33 08/11/16 11:33 08/11/16 11:33 Results - Labs CBC & Chem 7: 08/11/16 05:04 08/11/16 05:04 Labs: Last Result Calcium 7.9 mg/dL (8.6-10.8) L 08/11/16 05:04 Entire Visit Hgb 10.0 g/dL (12.9-16.9) L 08/11/16 05:04 Hct 34.6 % (37.5-50.1) L 08/11/16 05:04 PT 14.0 Seconds (9.4-12.1) H 08/08/16 21:17 Total Bilirubin 0.3 mg/dL (0.2-1.2) 08/11/16 05:04 AST 422 Units/L (5-34) H 08/11/16 05:04 ALT 692 Units/L (0-55) H 08/11/16 05:04 - ABG ABG results: ABG ABG pH 7.40 pH Units (7.32-7.45) 08/11/16 10:25 ABG pCO2 49 mmHg (35-45) H 08/11/16 10:25 ABG pO2 93 mmHg (85-104) 08/11/16 10:25 ABG O2 Saturation 97 % (95-98) 08/11/16 10:25 PT/INR, D-dimer PT 14.0 Seconds (9.4-12.1) H 08/08/16 21:17 - Impressions Impressions Chest X-Ray 08/10/16 20:12 IMPRESSION: Low lung volumes with bibasilar atelectasis and/or pneumonia D/ / Sincere Quintero MD / Sincere Quintero MD Interpreting Provider: Sincere Quintero MD Chest X-Ray 08/10/16 23:18 IMPRESSION: Satisfactory position, endotracheal tube just over 3 cm above the davida. Bilateral central airspace disease greater on the right, unchanged. D/ / Torres Mar MD / Torres Mar MD Interpreting Provider: Torres Mar MD Chest X-Ray 08/11/16 05:44 IMPRESSION: Moderate congestive failure increased from the prior study. D/ / Torres Mar MD / Torres Mar MD Interpreting Provider: Torres Mar MD - Attending Attestation I examined this patient and my medical decision-making was reviewed with the MIX CHEMIST/PA/Advanced Practice Nurse/Resident Physician. I agree with the documented findings, disposition and treatment plan as described except to the extent set forth below.
[2016-08-11] MEDS ORDERED: D5% in Water 1,000 ML IVC PRN (10:47)
[2016-08-11] MEDS ORDERED: Dextrose Gel 15 GM PO PRN ×2 (10:47)
[2016-08-11] MEDS ORDERED: *HR* Dextrose 50 % in Water (Syg) 50 ML SYRINGE IVP PRN (10:47)
[2016-08-11] MEDS: FentaNYL (PF) 1,000 MCG in 0.9 % Sodium Chloride 80 ML IVC SCH (11:48)
--- NOTE | 2016-08-11 12:04 | Infectious Disease Progress No ---
Date of Encounter: 08/11/16 Time of Encounter: 12:02 - Assessment and Plan (1) Sepsis Current Visit: Yes Status: Resolved The patient had fever with Tmax of 102,tachycardia, leukocytosis. The patient also has hypotension, but this is likely secondary to propofol. Source unclear as the patient has been afebrile and without sepsis criteria until last night when he had respiratory distress. CXR at that time showed possible bibasilar atelectasis vs PNA, but repeat CXR post-intubation shows pulmonary edema. No additional blood cultures have been obtained. If the patient spikes another fever, get blood cultures x 2 sets. Qualifiers: Sepsis type: sepsis due to unspecified organism Qualified Code(s): A41.9 - Sepsis, unspecified organism (2) Leukocytosis Current Visit: Yes Status: Resolved WBC elevated at 15 thousand with 12% monocytes on admission. Likely secondary to lower extremity cellulitis. WBC back up to 12 this morning --> reactive vs. new infectious process? Repeat CBC in the AM. Qualifiers: Leukocytosis type: unspecified Qualified Code(s): D72.829 - Elevated white blood cell count, unspecified (3) Cellulitis Current Visit: No Status: Acute Location: Left knee. Although there is marked erythema to the BLE, I do not believe this is cellulitis, but likely more related to venous stasis. I do believe there are some cellulitic skin changes overlying the left knee. Causative organism MRSA per wound culture, but we need to consider polymicrobial infection as well. Likely secondary to venous stasis ulcers. Left knee x-ray completed shows no joint effusion. Blood cultures drawn 08/08/16 in the ED are NGTD x 3 sets. Podiatry consulted for wound care recommendations. Continue Vancomycin IV. Pharmacy to dose. Goal trough approximately 15. Continue Zosyn 3.375 grams IV Q8H. Duration of treatment depends on the clinical picture. Monitor renal function and for drug toxicity and dose-adjust antibiotics. Qualifiers: Site of cellulitis: extremity Site of cellulitis of extremity: lower extremity Laterality: unspecified laterality Qualified Code(s): L03.119 - Cellulitis of unspecified part of limb (4) Acute on chronic respiratory failure with hypoxemia Current Visit: Yes Status: Acute Etiology unclear --> PNA vs. fluid overload. Currently intubated and sedated. The patient did have episode of emesis during intubation with likely aspiration. Continue O2 and supportive care as outlined by the pulmonology team. Continue antibiotics as outline above. (5) Cardiopulmonary arrest with successful resuscitation Current Visit: Yes Status: Acute Likely secondary to hypoxia. Received 2 rounds of CPR and ACLS drugs before ROSC. (6) Ulcers of both lower legs Current Visit: No Status: Acute Likely secondary to venous stasis. Several large venous stasis ulcers noted to the lower portion of the bilateral lower extremities. Dressings with large amounts of serous drainage. Clinically, they do not appear infected. There is no foul odor at this time. Podiatry and wound care consulted for wound care recommendations. Consider transfer to tertiary care center for aggressive wound care and plastic surgery consultation. (7) STEPHANIE (acute kidney injury) Current Visit: Yes Status: Resolved Resolved. (8) Transaminitis Current Visit: Yes Status: Acute Etiology unclear. Abdominal exam reveals diffuse tenderness, worse in the upper quadrants. Abdominal UTS negative. Hepatitis profile negative. GI consulted. Await their recommendations. 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 Overnight events noted. Patient apparently experienced respiratory distress and required intubation. Had emesis which resulted in likely aspiration. Suffered cardiac arrest likely due to hypoxia and had ROSC after 2 rounds of CPR and ACLS medications. Patient remains intubated and sedated on the ventilator. History received from nursing. No family at the bedside. Dressing changes to BLE completed this morning. Awaiting urology consult for velasquez catheter placement. No other issues per nursing. Infect Dis PN-Objective Data - Labs CBC & Chem 7: 08/11/16 05:04 08/11/16 05:04 Labs: Laboratory Results - last 24 hr 08/10/16 08/10/16 08/10/16 20:29 21:54 23:52 WBC RBC Hgb Hct MCV MCH MCHC RDW Plt Count MPV Immature Gran % Seg Neutrophils % Lymphocytes % Monocytes % Eosinophils % Basophils % Neutrophils # Lymphocytes # Monocytes # Eosinophils # Basophils # Platelet Estimate Polychromasia Poikilocytosis ABG pH 7.24 L 7.30 L ABG pCO2 79 H* 73 H* ABG pO2 60 L 377 H ABG HCO3 33.9 H 35.9 H ABG Total CO2 36.3 H 38.1 H ABG O2 Saturation 86 L 100 H ABG Base Excess 4.4 H 7.4 H Respiration Rate Blood Gas Modality NC ASSIST CONTROL Inspired O2 28 100 Tidal Volume PEEP Sodium Potassium Chloride Carbon Dioxide BUN Creatinine Est GFR ( Amer) Est GFR (Non-Af Amer) BUN/Creatinine Ratio Glucose POC Glucose 141 H Calculated Osmolality Lactic Acid Calcium Total Bilirubin AST ALT Alkaline Phosphatase Serum Total Protein Albumin Globulin Albumin/Globulin Ratio 08/11/16 08/11/16 08/11/16 05:04 05:04 05:13 WBC 12.3 H RBC 3.83 L Hgb 10.0 L Hct 34.6 L MCV 90.3 MCH 26.1 L MCHC 28.9 L RDW 16.0 H Plt Count 187 MPV 9.7 Immature Gran % 1.0 Seg Neutrophils % 65.6 Lymphocytes % 12.4 Monocytes % 13.8 Eosinophils % 6.7 Basophils % 0.5 Neutrophils # 8.1 Lymphocytes # 1.5 Monocytes # 1.7 H Eosinophils # 0.8 H Basophils # 0.1 Platelet Estimate Normal Polychromasia 1+ A Poikilocytosis 1+ A ABG pH 7.25 L ABG pCO2 71 H* ABG pO2 199 H ABG HCO3 31.1 H ABG Total CO2 33.3 H ABG O2 Saturation 100 H ABG Base Excess 2.5 Respiration Rate Blood Gas Modality ASSIST CONTROL Inspired O2 45 Tidal Volume PEEP Sodium 141 Potassium 4.0 D Chloride 105 Carbon Dioxide 27 BUN 31 H Creatinine 1.12 Est GFR ( Amer) > 60 Est GFR (Non-Af Amer) > 60 BUN/Creatinine Ratio 28 H Glucose 109 H POC Glucose Calculated Osmolality 299 Lactic Acid Calcium 7.9 L Total Bilirubin 0.3 AST 422 H ALT 692 H Alkaline Phosphatase 125 Serum Total Protein 5.7 L Albumin 2.2 L Globulin 3.5 Albumin/Globulin Ratio 0.6 L 08/11/16 08/11/16 08/11/16 05:47 07:48 10:25 WBC RBC Hgb Hct MCV MCH MCHC RDW Plt Count MPV Immature Gran % Seg Neutrophils % Lymphocytes % Monocytes % Eosinophils % Basophils % Neutrophils # Lymphocytes # Monocytes # Eosinophils # Basophils # Platelet Estimate Polychromasia Poikilocytosis ABG pH 7.48 H D 7.40 ABG pCO2 40 D 49 H ABG pO2 92 93 ABG HCO3 29.8 H 30.4 H ABG Total CO2 31.0 H 31.9 H ABG O2 Saturation 98 97 ABG Base Excess 5.8 H 4.8 H Respiration Rate 16 12 Blood Gas Modality ASSIST CONTROL ASSIST CONTROL Inspired O2 30 30 Tidal Volume 500 450 PEEP 5 5 Sodium Potassium Chloride Carbon Dioxide BUN Creatinine Est GFR ( Amer) Est GFR (Non-Af Amer) BUN/Creatinine Ratio Glucose POC Glucose Calculated Osmolality Lactic Acid 1.1 Calcium Total Bilirubin AST ALT Alkaline Phosphatase Serum Total Protein Albumin Globulin Albumin/Globulin Ratio Cultures: Cultures 08/09/16 18:24 Wound Culture - Preliminary Other-Specify in Comments Gram Positive Cocci Serology 08/08/16 Range/Units 20:11 Hepatitis A IgM Ab Nonreactive (Nonreactive) Hep Bs Antigen Nonreactive (Nonreactive) Hep B Core IgM Ab Nonreactive (Nonreactive) Hepatitis C Ab Screen Nonreactive (Nonreactive) - Impressions Impressions Chest X-Ray 08/10/16 20:12 IMPRESSION: Low lung volumes with bibasilar atelectasis and/or pneumonia D/ / Sincere Quintero MD / Sincere Quintero MD Interpreting Provider: Sincere Quintero MD Chest X-Ray 08/10/16 23:18 IMPRESSION: Satisfactory position, endotracheal tube just over 3 cm above the davida. Bilateral central airspace disease greater on the right, unchanged. D/ / Torres Mar MD / Torres Mar MD Interpreting Provider: Torres Mar MD Chest X-Ray 08/11/16 05:44 IMPRESSION: Moderate congestive failure increased from the prior study. D/ / Torres Mar MD / Torres Mar MD Interpreting Provider: Torres Mar MD Exam - Constitutional Vitals: Temp Pulse Resp BP Pulse Ox 97.2 F L 63 12 90/53 100 08/11/16 11:33 08/11/16 11:33 08/11/16 11:33 08/11/16 11:33 08/11/16 11:33 General appearance: morbidly obese, no acute distress, no febrile - Head Head exam: Present: atraumatic, normal inspection, normocephalic - Eye Eye exam: Present: normal appearance, PERRL Pupils: Present: normal accommodation - ENT ENT exam: Present: mucous membranes moist - Neck Neck exam: Present: normal inspection - Respiratory Respiratory exam: Present: rhonchi (Scattered throughout). Absent: wheezes, tachypnea Additional comments: ET tube noted with O2 via the ventilator. - Cardiovascular Cardiovascular exam: Present: RRR, +S1, +S2 - GI/Abdominal GI/Abdominal exam: Present: distended (obese), normal bowel sounds, soft. Absent: tenderness Additional comments: OG tube to LIWS. - Extremities Exam Extremities exam: Absent: joint swelling, pedal edema, tenderness Additional comments: Dressings the BLE C/D/I. - Neurological Exam Neurological exam: Present: altered (Sedated. Does not respond to verbal stimuli. ) - Skin Skin exam: Present: dry, intact, normal color, warm Consult Discharge Plan - Plan Referrals: NO,PCP [Primary Care Provider] - - Attending Attestation I examined this patient and my medical decision-making was reviewed with the IT COMPLIANCE MANAGER/PA/Advanced Practice Nurse/Resident Physician. I agree with the documented findings, disposition and treatment plan as described except to the extent set forth below.
[2016-08-11 12:27] LABS: EBV Ab(Viral Capsid Ag)VCA-IGG >750.0 U/mL (0.0-21.9); EBV Ab(Viral Capsid Ag)VCA-IgM <10.0 U/mL (0.0-43.9)
[2016-08-11] MEDS ORDERED: Vancomycin 1 EACH in D5% in Water 250 ML IVPB PRN (16:00)
[2016-08-12 01:49] LABS: Bilirubin,Urine Negative (Negative); Blood,Urine Small (Negative); Clarity,Urine Cloudy (Clear); Color,Urine Yellow (Yellow); Glucose,Urine (UA) Normal (Normal); Ketones,Urine Negative (Negative); Leukocyte Esterase,Urine Moderate (Negative); Nitrite,Urine Negative (Negative); Protein,Urine 30 mg/dL (Neg-Trace); Specific Gravity,Urine 1.023 (1.010-1.025); Urobilinogen,Urine Normal (Normal)
[2016-08-12 01:52] LABS: Hyaline Casts,Urine None Seen per lpf (None-Few); Squamous Epithelial Cell,Urine Many per lpf (None-Few); WBC,Urine 15-30 per hpf (0-3)
[2016-08-12 01:58] LABS: Bacteria,Urine Few per hpf (None-Few); Yeast,Urine Few per hpf (None Seen)
[2016-08-12 04:10] LABS: Basophils # 0.1 K/mcL (0.0-0.2); Basophils % 0.5 %; Eosinophils % 9.7 %; Hematocrit 33.3 % (37.5-50.1); Hemoglobin 9.7 g/dL (12.9-16.9); Immature Granulocytes % 0.7 % (0-4); Lymphocytes # 0.9 K/mcL (0.6-4.6); Lymphocytes % 8.8 %; Mean Corpuscular HGB Conc 29.1 g/dL (31.6-35.5); Mean Corpuscular Hemoglobin 25.6 pg (28.0-33.3); Mean Corpuscular Volume 87.9 fL (83.0-100.0); Mean Platelet Volume 10.3 fL (9.4-12.4); Monocytes # 0.9 K/mcL (0.0-1.3); Monocytes % 9.2 %; Neutrophils # 7.2 K/mcL (1.6-8.9); Platelet Count 193 K/mcL (140-400); Red Blood Count 3.79 M/mcL (4.19-5.50); Red Cell Distribution Width 16.4 % (11.5-14.5); Segmented Neutrophils % 71.1 %
[2016-08-12] MEDS: Lacri-Lube 3.5 GM TUBE BOTH EYES SCH ×6 (04:15→23:32)
[2016-08-12] MEDS: Ipratropium/Albuterol Neb 3 ML IH SCH ×4 (04:18→22:16)
[2016-08-12 04:25] LABS: ABG Base Excess 3.3 mEq/L (-2.0 to 3.0); ABG HCO3 29.8 mEQ/L (21-27); ABG Oxygen Saturation 98 % (95-98); ABG PCO2 54 mmHg (35-45); ABG PH 7.35 pH Units (7.32-7.45); ABG PO2 109 mmHg (85-104); ABG TCO2 31.5 mEq/L (20-26); Blood Gas FiO2 30 %
[2016-08-12 04:27] LABS: Alanine Aminotransferase 505 Units/L (0-55); Albumin 1.9 g/dL (3.5-5.0); Albumin/Globulin Ratio 0.6 (1.1-2.2); Alkaline Phosphatase 112 Units/L (38-126); Aspartate Amino Transferase 214 Units/L (5-34); BUN/Creatinine Ratio 26 (6-26); Bilirubin,Direct 0.3 mg/dL (0.0-0.5); Bilirubin,Indirect 0.1 mg/dL (0.0-1.2); Bilirubin,Total 0.4 mg/dL (0.2-1.2); Blood Urea Nitrogen 37 mg/dL (8-26); Calcium 7.9 mg/dL (8.6-10.8); Carbon Dioxide 26 mEq/L (19-29); Chloride 106 mEq/L (98-109); Globulin 3.4 g/dL (2.4-3.5); Glucose 118 mg/dL (70-99); Magnesium 1.8 mg/dL (1.6-2.6); Osmolality,Calculated 302 (280-300); Phosphorous 4.8 mg/dL (2.3-4.7); Potassium 4.1 mEq/L (3.5-4.5); Sodium 141 mEq/L (136-145); Total Protein 5.3 g/dL (6.0-8.3); eGFR For African Americans > 60 (> 60); eGFR For Non-African Americans 53 (> 60)
[2016-08-12] MEDS: Magnesium Sulfate 2 GM in D5% in Water 100 ML IVPB PRN ×2 (05:10→14:10)
--- NOTE | 2016-08-12 06:25 | Urology - Consult Note ---
Date of Encounter: 08/11/16 Time of Encounter: 12:00 - Assessment and Plan (1) Hidden penis Current Visit: Yes Status: Acute Assessment and plan: secondary to body habitus the patient has an extreme hidden penis which made the Velasquez catheter placement. continue Velasquez catheter until the is awake, alert and has recovered from current medical issues no longer necessitating Velasquez catheter. Catheter will be very difficult to replace if removed Urology CN:HPI Consult date: 08/11/16 Reason for consult Urology: Difficult Velasquez History of present illness: pt admitted to ICU after cardiac arrest. nursing staff unable to place velasquez because hidden penis. Past Med Surg Social Fam HX - Past Medical History Medical history: CHF, dementia, GERD, GI bleed, myocardial infarction, venous stasis, other Psychiatric history: no psych history, other - Past Surgical History Surgical History: cholecystectomy, other - Social History Smoking Status: Never smoker Smokeless Tobacco Status: No Alcohol use: none Drug use: none - Family History Father History Unknown: Yes Living Status: Still Living Hx Family Cardiac Disorders: Yes (htn) Hx Family Cancer: Yes (thyroid ca) Mother Living Status: Hx Family Cardiac Disorders: Yes (chf) Hx Family Respiratory Disorders: Yes (pneumonia) Hx Family Endocrine Disorder: Yes (diabetic) Medications and Allergies Multivitamin [Multi-Day Vitamins] 1 each PO DAILY 01/07/16 [History] Ascorbic Acid [Vitamin C] 500 mg PO DAILY #30 tablet 01/09/16 [Rx] Folic Acid 0.4 mg PO DAILY #30 tablet 01/09/16 [Rx] Ferrous Gluconate 324 mg PO BID #60 tablet 02/15/16 [Rx] Lactobacillus [Culturelle] 1 each PO BID cap.sprink 06/01/16 [Rx] Potassium Chloride 20 meq PO DAILY #30 tab.er.prt 06/01/16 [Rx] Zinc Sulfate 220 mg PO DAILY capsule 06/01/16 [Rx] Acetaminophen [Acetaminophen ER] 650 mg PO Q6H PRN 06/14/16 [History] Albuterol Sulfate [Ventolin Hfa] 2 puff IH Q4H 06/14/16 [History] Docusate [Colace] 100 mg PO BID PRN 06/14/16 [History] Famotidine [Heartburn Prevention] 20 mg PO BID 06/14/16 [History] Albuterol Neb [Proventil Neb] 2.5 mg IH Q2H PRN 08/08/16 [History] Collagenase Oint [Santyl] 1 appl TP AD 08/08/16 [History] Furosemide [Lasix] 40 mg PO BID 08/08/16 [History] Gentamicin Oint [Garamycin] 1 appl TP AD 08/08/16 [History] Ipratropium/Albuterol Neb [Duoneb] 3 ml IH QID 08/08/16 [History] Oxygen 2 l NS AD 08/08/16 [History] Allergies cephalexin [From Keflex] Allergy (Verified 08/08/16 12:30) See Comments Pt unsure of reaction. chlorpromazine [From Thorazine] Allergy (Verified 08/08/16 12:30) See Comments Lignum Allergy (Verified 08/08/16 12:30) See Comments Beans Allergy (Uncoded 08/08/16 12:30) See Comments Review of Systems ROS unobtainable: due to endotracheal tube Exam Initial Vital Signs Temp Pulse Resp BP Pulse Ox 98.5 F 88 22 120/21 90 08/08/16 11:47 08/08/16 11:47 08/08/16 11:47 08/08/16 11:47 08/08/16 11:47 - General physical appearance Present: no distress - Eyes Present: other (eyes closed) - ENT Present: normal nares - Neck Present: no masses - Respiratory Present: other (vent) - Cardiovascular Cardiovascular exam IM: RRR (obese and abd wall edema) - Genitourinary Penis: Present: other (nonvisualized penis. hidden bc of adipose tissue and edema. small opening present. able to palpate tip of penis with index finger. penis 3-4 cm beneath skin oriface) Testicles: Present: atrophy Urology Results - Labs 08/12/16 03:53 08/12/16 03:53 Abnormal lab results RBC 3.79 M/mcL (4.19-5.50) L 08/12/16 03:53 Hgb 9.7 g/dL (12.9-16.9) L 08/12/16 03:53 Hct 33.3 % (37.5-50.1) L 08/12/16 03:53 MCH 25.6 pg (28.0-33.3) L 08/12/16 03:53 MCHC 29.1 g/dL (31.6-35.5) L 08/12/16 03:53 RDW 16.4 % (11.5-14.5) H 08/12/16 03:53 Eosinophils # 1.0 K/mcL (0.0-0.6) H 08/12/16 03:53 Nucleated RBCs/100 WBC 0.2 /100 WBC (0) H 08/09/16 11:27 Polychromasia 1+ (Not Present) A 08/11/16 05:04 Poikilocytosis 1+ (Not Present) A 08/11/16 05:04 Anisocytosis 1+ (Not Present) A 08/08/16 13:55 PT 14.0 Seconds (9.4-12.1) H 08/08/16 21:17 ABG pCO2 54 mmHg (35-45) H 08/12/16 04:09 ABG pO2 109 mmHg (85-104) H 08/12/16 04:09 ABG HCO3 29.8 mEQ/L (21-27) H 08/12/16 04:09 ABG Total CO2 31.5 mEq/L (20-26) H 08/12/16 04:09 ABG Base Excess 3.3 mEq/L (-2.0 to 3.0) H 08/12/16 04:09 BUN 37 mg/dL (8-26) H 08/12/16 03:53 Creatinine 1.44 mg/dL (0.72-1.25) H 08/12/16 03:53 Est GFR (Non-Af Amer) 53 (> 60) L 08/12/16 03:53 Glucose 118 mg/dL (70-99) H 08/12/16 03:53 Calculated Osmolality 302 (280-300) H 08/12/16 03:53 Calcium 7.9 mg/dL (8.6-10.8) L 08/12/16 03:53 Ionized Calcium 1.13 mmol/L (1.15-1.35) L 08/12/16 03:53 Phosphorus 4.8 mg/dL (2.3-4.7) H 08/12/16 03:53 AST 214 Units/L (5-34) H 08/12/16 03:53 ALT 505 Units/L (0-55) H 08/12/16 03:53 Serum Total Protein 5.3 g/dL (6.0-8.3) L 08/12/16 03:53 Albumin 1.9 g/dL (3.5-5.0) L 08/12/16 03:53 Albumin/Globulin Ratio 0.6 (1.1-2.2) L 08/12/16 03:53 Ur Specimen Adequacy See below A 08/12/16 01:40 Urine Clarity Cloudy (Clear) A 08/12/16 01:40 Urine Protein 30 mg/dL (Neg-Trace) H 08/12/16 01:40 Urine Blood Small (Negative) H 08/12/16 01:40 Ur Leukocyte Esterase Moderate (Negative) H 08/12/16 01:40 Urine Microscopic RBC 3-5 per hpf (0-3) H 08/12/16 01:40 Urine Microscopic WBC 15-30 per hpf (0-3) H 08/12/16 01:40 Ur Squamous Epith Cells Many per lpf (None-Few) H 08/12/16 01:40 Urine Yeast Few per hpf (None Seen) H 08/12/16 01:40 Ur Culture Indicated? YES (NO) A 08/12/16 01:40 Vancomycin Trough 47.7 mcg/mL (10-20) H* 08/11/16 14:55 Acetaminophen < 1.0 mcg/mL (10-30) L 08/11/16 14:55 EBV Capsid Ag IgG Ab >750.0 U/mL (0.0-21.9) H 08/09/16 11:27 EBV Nuclear Ag Ab Titer 245.0 U/mL (0.0-21.9) H 08/09/16 11:27 Diabetes panel 08/12/16 Range/Units 03:53 Sodium 141 (136-145) mEq/L Potassium 4.1 (3.5-4.5) mEq/L Chloride 106 (98-109) mEq/L Carbon Dioxide 26 (19-29) mEq/L BUN 37 H (8-26) mg/dL Creatinine 1.44 H (0.72-1.25) mg/dL Glucose 118 H (70-99) mg/dL Calcium 7.9 L (8.6-10.8) mg/dL AST 214 H (5-34) Units/L ALT 505 H (0-55) Units/L Alkaline Phosphatase 112 (38-126) Units/L Albumin 1.9 L (3.5-5.0) g/dL Calcium panel 08/12/16 Range/Units 03:53 Calcium 7.9 L (8.6-10.8) mg/dL Phosphorus 4.8 H (2.3-4.7) mg/dL Albumin 1.9 L (3.5-5.0) g/dL Pituitary panel 08/12/16 Range/Units 03:53 Sodium 141 (136-145) mEq/L Potassium 4.1 (3.5-4.5) mEq/L Chloride 106 (98-109) mEq/L Carbon Dioxide 26 (19-29) mEq/L BUN 37 H (8-26) mg/dL Creatinine 1.44 H (0.72-1.25) mg/dL Glucose 118 H (70-99) mg/dL Calcium 7.9 L (8.6-10.8) mg/dL Adrenal panel 08/12/16 Range/Units 03:53 Sodium 141 (136-145) mEq/L Potassium 4.1 (3.5-4.5) mEq/L Chloride 106 (98-109) mEq/L Carbon Dioxide 26 (19-29) mEq/L BUN 37 H (8-26) mg/dL Creatinine 1.44 H (0.72-1.25) mg/dL Glucose 118 H (70-99) mg/dL Calcium 7.9 L (8.6-10.8) mg/dL Total Bilirubin 0.4 (0.2-1.2) mg/dL AST 214 H (5-34) Units/L ALT 505 H (0-55) Units/L Alkaline Phosphatase 112 (38-126) Units/L Albumin 1.9 L (3.5-5.0) g/dL All other labs normal. Procedures:Urology - Catheter Insertion (Urinary) Prophylactic antibiotics given: No Bladder Scan/Ultrasound used before catheterization: No Estimated amount of urin (mLs): 350 Type of catheter inserted: coude tip Catheter Malaysian Size: 14 Topical anesthesia used: No Results: successfully catheterized-immediate flow Urine Appearance: Clear Patient tolerated procedure: well Additional comments: patient has extreme hidden penis. I was able to palpate the tip of which was located 3-4 cm within a small orifice and his genital region. He has significant obesity and edema. After multiple attempts I was able to blindly guide a 14 Malaysian coud catheter into the meatus and passed the Velasquez cath with return of clear urine. I had made multiple attempts with but were unsuccessful. Consult Discharge Plan - Plan Referrals: NO,PCP [Primary Care Provider] -
--- NOTE | 2016-08-12 06:45 | Pulmonology Progress Note ---
<Enrique Bone M - Last Filed: 08/12/16 08:28> Date of Encounter: 08/12/16 Objective PUL Vital signs: Last Vital Signs Temp 97.6 F 08/12/16 07:00 Pulse 64 08/12/16 07:27 Resp 14 08/12/16 07:18 BP 92/58 08/12/16 07:18 Pulse Ox 93 08/12/16 07:18 Ventilator Settings Ventilator Settings: Ventilator Settings, Last 8 Hours Ventilator Mode VC+ Ventilator Mode VC+ Ventilator Mode VC+ Ventilator Mode VC+ Ventilator Mode VC+ Ventilator Mode VC+ Ventilator Mode VC+ Ventilator Mode VC+ Ventilator Mode VC+ Ventilator Mode VC+ Ventilator Mode VC+ Ventilator Mode VC+ Ventilator Mode VC+ Ventilator Tidal Volume 450 Setting Ventilator Tidal Volume 450 Setting Ventilator Tidal Volume 450 Setting Ventilator Tidal Volume 450 Setting Ventilator Tidal Volume 450 Setting Ventilator Tidal Volume 450 Setting Ventilator Tidal Volume 450 Setting Ventilator Tidal Volume 450 Setting Ventilator Tidal Volume 450 Setting Ventilator Tidal Volume 450 Setting Ventilator Tidal Volume 450 Setting Ventilator Tidal Volume 450 Setting Ventilator Tidal Volume 450 Setting Ventilator Respiratory Rate 12 Setting Ventilator Respiratory Rate 12 Setting Ventilator Respiratory Rate 12 Setting Ventilator Respiratory Rate 12 Setting Ventilator Respiratory Rate 12 Setting Ventilator Respiratory Rate 12 Setting Ventilator Respiratory Rate 12 Setting Ventilator Respiratory Rate 12 Setting Ventilator Respiratory Rate 12 Setting Ventilator Respiratory Rate 12 Setting Ventilator Respiratory Rate 12 Setting Ventilator Respiratory Rate 12 Setting Ventilator Respiratory Rate 12 Setting Actual Respiratory Rate 14 Actual Respiratory Rate 12 Actual Respiratory Rate 12 Actual Respiratory Rate 14 Actual Respiratory Rate 12 Actual Respiratory Rate 25 Actual Respiratory Rate 12 Actual Respiratory Rate 12 Actual Respiratory Rate 12 Actual Respiratory Rate 12 Actual Respiratory Rate 12 Actual Respiratory Rate 12 Positive End Expiratory 5 Pressure Positive End Expiratory 5 Pressure Positive End Expiratory 5 Pressure Positive End Expiratory 5 Pressure Positive End Expiratory 5 Pressure Positive End Expiratory 5 Pressure Positive End Expiratory 5 Pressure Positive End Expiratory 5 Pressure Positive End Expiratory 5 Pressure Positive End Expiratory 5 Pressure Positive End Expiratory 5 Pressure Positive End Expiratory 5 Pressure Positive End Expiratory 5 Pressure Peak Inspiratory Airway 32 Pressure Peak Inspiratory Airway 38 Pressure Peak Inspiratory Airway 36 Pressure Peak Inspiratory Airway 34 Pressure Peak Inspiratory Airway 37 Pressure Peak Inspiratory Airway 35 Pressure Peak Inspiratory Airway 47 Pressure Peak Inspiratory Airway 38 Pressure Peak Inspiratory Airway 36 Pressure Peak Inspiratory Airway 35 Pressure Peak Inspiratory Airway 35 Pressure Peak Inspiratory Airway 34 Pressure Results - Laboratory Findings CBC and BMP: 08/12/16 03:53 08/12/16 03:53 ABG ABG pH 7.35 pH Units (7.32-7.45) 08/12/16 04:09 ABG pCO2 54 mmHg (35-45) H 08/12/16 04:09 ABG pO2 109 mmHg (85-104) H 08/12/16 04:09 ABG O2 Saturation 98 % (95-98) 08/12/16 04:09 PT/INR, D-dimer PT 14.0 Seconds (9.4-12.1) H 08/08/16 21:17 Abnormal lab findings: Abnormal lab results RBC 3.79 M/mcL (4.19-5.50) L 08/12/16 03:53 Hgb 9.7 g/dL (12.9-16.9) L 08/12/16 03:53 Hct 33.3 % (37.5-50.1) L 08/12/16 03:53 MCH 25.6 pg (28.0-33.3) L 08/12/16 03:53 MCHC 29.1 g/dL (31.6-35.5) L 08/12/16 03:53 RDW 16.4 % (11.5-14.5) H 08/12/16 03:53 Eosinophils # 1.0 K/mcL (0.0-0.6) H 08/12/16 03:53 Nucleated RBCs/100 WBC 0.2 /100 WBC (0) H 08/09/16 11:27 Polychromasia 1+ (Not Present) A 08/11/16 05:04 Poikilocytosis 1+ (Not Present) A 08/11/16 05:04 Anisocytosis 1+ (Not Present) A 08/08/16 13:55 PT 14.0 Seconds (9.4-12.1) H 08/08/16 21:17 ABG pCO2 54 mmHg (35-45) H 08/12/16 04:09 ABG pO2 109 mmHg (85-104) H 08/12/16 04:09 ABG HCO3 29.8 mEQ/L (21-27) H 08/12/16 04:09 ABG Total CO2 31.5 mEq/L (20-26) H 08/12/16 04:09 ABG Base Excess 3.3 mEq/L (-2.0 to 3.0) H 08/12/16 04:09 BUN 37 mg/dL (8-26) H 08/12/16 03:53 Creatinine 1.44 mg/dL (0.72-1.25) H 08/12/16 03:53 Est GFR (Non-Af Amer) 53 (> 60) L 08/12/16 03:53 Glucose 118 mg/dL (70-99) H 08/12/16 03:53 Calculated Osmolality 302 (280-300) H 08/12/16 03:53 Calcium 7.9 mg/dL (8.6-10.8) L 08/12/16 03:53 Ionized Calcium 1.13 mmol/L (1.15-1.35) L 08/12/16 03:53 Phosphorus 4.8 mg/dL (2.3-4.7) H 08/12/16 03:53 AST 214 Units/L (5-34) H 08/12/16 03:53 ALT 505 Units/L (0-55) H 08/12/16 03:53 Serum Total Protein 5.3 g/dL (6.0-8.3) L 08/12/16 03:53 Albumin 1.9 g/dL (3.5-5.0) L 08/12/16 03:53 Albumin/Globulin Ratio 0.6 (1.1-2.2) L 08/12/16 03:53 Ur Specimen Adequacy See below A 08/12/16 01:40 Urine Clarity Cloudy (Clear) A 08/12/16 01:40 Urine Protein 30 mg/dL (Neg-Trace) H 08/12/16 01:40 Urine Blood Small (Negative) H 08/12/16 01:40 Ur Leukocyte Esterase Moderate (Negative) H 08/12/16 01:40 Urine Microscopic RBC 3-5 per hpf (0-3) H 08/12/16 01:40 Urine Microscopic WBC 15-30 per hpf (0-3) H 08/12/16 01:40 Ur Squamous Epith Cells Many per lpf (None-Few) H 08/12/16 01:40 Urine Yeast Few per hpf (None Seen) H 08/12/16 01:40 Ur Culture Indicated? YES (NO) A 08/12/16 01:40 Vancomycin Trough 47.7 mcg/mL (10-20) H* 08/11/16 14:55 Acetaminophen < 1.0 mcg/mL (10-30) L 08/11/16 14:55 EBV Capsid Ag IgG Ab >750.0 U/mL (0.0-21.9) H 08/09/16 11:27 EBV Nuclear Ag Ab Titer 245.0 U/mL (0.0-21.9) H 08/09/16 11:27 - Microbiology Findings Microbiology Findings: Microbiology, Last 48 Hours 08/09/16 18:24 Wound Culture - Final Other-Specify in Comments Methicillin Resistant S.aureus - Clinical Findings Intake & Output: Intake & Output 08/11/16 08/12/16 08/12/16 23:59 07:59 15:59 Intake Total 527 / 527 420 / 420 Output Total 50 / 50 100 / 100 Balance 477 / 477 320 / 320 Weight 108.908 kg Consult Discharge Plan - Plan Referrals: NO,PCP [Primary Care Provider] - - Attending Attestation I examined this patient and my medical decision-making was reviewed with the [employer]/PA/Advanced Practice Nurse/Resident Physician. I agree with the documented findings, disposition and treatment plan as described except to the extent set forth below. Patient seen and examined. Labs, radiology, chart personally reviewed. 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 Spontaneous breathing trial when sister around for better communication. Cardiovascular: Relatively stable however have some hypertension will give fluid. GI: Nutrition per dietary and GI prophylaxis per routine Heme: DVT prophylaxis per routine ID: Continue antibiotics and plan to de-escalation Renal; urine out put and renal funtion reviewed. Decreased urine output will give him more fluid. Endorcine: blood glucose is monitored Lines: all lines checked and no evidence of infections Skin: skin care to prevent pressure ulcers per nursing routine care <Barron Husain - Last Filed: 08/12/16 09:50> Date of Encounter: 08/12/16 Time of Encounter: 06:45 Assessment and Plan (1) Acute on chronic respiratory failure with hypoxemia Current Visit: Yes Status: Acute improving - patient intubated due to hypoxemia and hypercapnia likely secondary to chronic respiratory failure secondary to cor pulmonale and OHS as well as pulmonary edema/vascular congestion - prior ECHO 05/25/2016 sub-optimal, LV grossly normal, systolic normal, severe pulm HTN RVSP 75 mmHg - ECHO 08/08/2015 EF 55% with mild pulm HTN RVSP 42 mmHg mild expiratory wheezes on exam scheduled duonebs continue pulm toilet, Lasix and velasquez catheter placement CXR 08/11 demonstrated properly placed ETT, OG, and vascular congestion/ pulmonary edema current vent settings 12/450/30%/5 PEEP - ABG 7.35/54/109/29.8/31.5/98O2/3.3 base excess slowly titrate sedation for CPAP trial when sister is present (2) Acute on chronic respiratory failure with hypercapnia Current Visit: Yes Status: Acute improving, acute on chronic hypercapnia noncompliant with BiPAP here plan as above (3) Sepsis Current Visit: Yes Status: Resolved improving - leukocytosis resolved to 10.1 (12.3) - remains afebrile with HR stable 60-70s MRSA wound culture blood cultures NGTD x2 Vascular consulted for PICC line for senior care antibiotics on Day 5 of antibiotics, Vancomycin and Zosyn - ID recommended discontinuation of Meropenem on day 3 and Zosyn was started - pharmacy to dose Vancomycin, trough was 47.7 - will continue to monitor renal function lactate was normal 1.1 Qualifiers: Sepsis type: sepsis due to unspecified organism Qualified Code(s): A41.9 - Sepsis, unspecified organism (4) Cardiopulmonary arrest with successful resuscitation Current Visit: Yes Status: Acute cardiac arrest s/p intubation 08/10 patient vomitied --> bradycardia --> asystole successful resuscitation after 2 rounds of CPR and 1 EPI before ROSC continue to monitor neurologic and cardiopulmonary status currently on sedation and slowly wean to assess neurologic function when respiratory status improves (5) Cellulitis Current Visit: No Status: Acute cellulitic changes to bilateral lower extremity chronic venous stasis MRSA positive wound day 5 of antibiotics, Vancomycin and Zosyn contact precautions continue wound care L knee x-ray shows no joint effusion Infectious Disease and Wound Care/Podiatry have been consulted, recommendations appreciated Qualifiers: Site of cellulitis: extremity Site of cellulitis of extremity: lower extremity Laterality: unspecified laterality Qualified Code(s): L03.119 - Cellulitis of unspecified part of limb (6) Chronic wound of extremity Current Visit: No Status: Chronic continue wound care Infectious Disease and Podiatry/Wound Care has been consulted (7) Infected stasis ulcer of left lower extremity Current Visit: No Status: Acute plan as above (8) Hypotension Current Visit: Yes Status: Acute continues to have SBP <90 but MAP >65 will give 500 cc bolus of NS to see responsiveness 100 cc UOP and elevated Cr 1.44 CXR suggestive of pulmonary edema and history of diastolic heart failure and cor pulmonale but on exam lungs with mild expiratory wheezes without rales or crackles Qualifiers: Hypotension type: hypotension due to drug Qualified Code(s): I95.2 - Hypotension due to drugs (9) Leukocytosis Current Visit: Yes Status: Resolved improved 10.1 (12.3) patient remains afebrile will continue to monitor Qualifiers: Leukocytosis type: unspecified Qualified Code(s): D72.829 - Elevated white blood cell count, unspecified (10) Transaminitis Current Visit: Yes Status: Acute improving and downtrending - AST 214 (422) - ALT 505 (692) no evidence of jaundice or scleral icterus GI consulted and recommendations appreciated unclear etiology EBV positive antibodies APAP level is <1 continue to hold Tylenol or any hepatic toxic medicationsno evidence of shock liver negative hepatitis panel no abnormalities on the liver ultrasound, however, limited due to patient comfort (11) STEPHANIE (acute kidney injury) Current Visit: Yes Status: Resolved likely secondary to sepsis and prerenal making urine but minimal UOP 500 cc NS bolus Vanc trough elevated 47.7 pharmacy to dose Vanc will continue to monitor (12) Morbid obesity with BMI of 50.0-59.9, adult Current Visit: Yes Status: Chronic Nutrition consulted - tube feeds at 65 with 200 free water GI prophylaxis with IV Protonix (13) Difficulty with insertion of urinary catheter Current Visit: Yes Status: Acute Urology consulted and much appreciated 14F catheter was placed (14) Difficult intravenous access Current Visit: Yes Status: Acute EPIV in right shoulder and PICC in right basilic (15) Chronic anemia Current Visit: Yes Status: Acute likely anemia of chronic disease remains stable at 9.7 (10) required transfusion Hgb as low as 3.4 in the past 01/07/2016 (16) Goals of care, counseling/discussion Current Visit: Yes Status: Acute sister Kerri BENAVIDES discussed recent events and long-term goals of care, wish for FULL CODE plan for CPAP trial later today (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 (18) DVT prophylaxis Current Visit: No Status: Acute heparin subq for DVT prophylaxis METALLURGICAL OR MATERIALS TECHNICIAN: sedated on Versed 3 Fentanyl 35, no acute distress, opens eyes to voice and follows simple commands Cardio: BPs remains 80-90s with MAPs maintained >65, will give 500 cc bolus NS Pulm: lungs with bilateral expiratory wheezes, scheduled duonebs, acceptable ventilation and oxygenation, SBT when sister present and plan for CPAP GI: Nutrition consulted for tube feeds and free water, GI prophylaxis Heme: DVT prophylaxis, Heparin SQ ID: cellulitis of chronic venous stasis ulcers, ID on board, wound culture + MRSA on Vanc Renal: minimal UOP, elevated Cr, hold lasix and give fluid bolus concern for prerenal Endo: blood glucose monitored Lines: PICC, all lines checked and no evidence of infections Skin: skin care per nursing routine care, wound care for LE Lytes: continue to monitor and replete PRN Subjective Principal diagnosis: Respiratory failure, sepsis, cellulitis Interval history: No major overnight events. Patient was seen and examined at bedside. He continues to be intubated on light sedation. Does not appear to be in any acute distress. He opens his eyes to voice and follows simple commands. He shakes his head when asked if in pain. Objective PUL Vital signs: Last Vital Signs Temp 97.5 F L 08/12/16 04:00 Pulse 65 08/12/16 06:00 Resp 12 08/12/16 06:04 BP 82/50 08/12/16 06:04 Pulse Ox 90 08/12/16 06:04 General appearance: no acute distress (sedated), other (morbidly obese with phenotypic femal features, opens eyes to voice and follow simple commands) Eyes: nonicteric, other (PERRL) ENT: other (Endotracheal tube and OG in place) Effort: other (Mechanical ventilation) Auscultation: bilateral: wheezes (Mild expiratory) Cardiovascular: regular rate and rhythm Gastrointestinal: hypoactive bowel sounds, soft, non-tender Integumentary: erythema (blanchable to bilateral LE), cellulitis, other ( chronic venous stasis ulcers to bilateral LE with cellulitic changes, L leg ankle to lower 1/3 thigh, R leg ankle to knee; diffuse excoriations visualized to bilateral LE; no joint effusion appreciated, no crepitus, erythema or induration above the knee or in the groin/perineal area) Extremities: edema, anasarca, other (difficult to palpate pulses due to edema and body habitus, wounds are malodorous and weeping located on bilateral legs, oval wound to the mid right anterior singh, oval wound to the lateral lower right leg, stellate wound to the left lower leg that is circumferential, there is good granulation tissue) non-focal exam, pupils equal and round, other (Opens eyes to voice, follows simple commands) EPIV in basilic right upper arm PICC in the right upper arm Ventilator Settings Ventilator Settings: Ventilator Settings, Last 8 Hours Ventilator Mode VC+ Ventilator Mode VC+ Ventilator Mode VC+ Ventilator Mode VC+ Ventilator Mode VC+ Ventilator Mode VC+ Ventilator Mode VC+ Ventilator Mode VC+ Ventilator Mode VC+ Ventilator Mode VC+ Ventilator Mode VC+ Ventilator Mode VC+ Ventilator Mode VC+ Ventilator Tidal Volume 450 Setting Ventilator Tidal Volume 450 Setting Ventilator Tidal Volume 450 Setting Ventilator Tidal Volume 450 Setting Ventilator Tidal Volume 450 Setting Ventilator Tidal Volume 450 Setting Ventilator Tidal Volume 450 Setting Ventilator Tidal Volume 450 Setting Ventilator Tidal Volume 450 Setting Ventilator Tidal Volume 450 Setting Ventilator Tidal Volume 450 Setting Ventilator Tidal Volume 450 Setting Ventilator Tidal Volume 450 Setting Ventilator Respiratory Rate 12 Setting Ventilator Respiratory Rate 12 Setting Ventilator Respiratory Rate 12 Setting Ventilator Respiratory Rate 12 Setting Ventilator Respiratory Rate 12 Setting Ventilator Respiratory Rate 12 Setting Ventilator Respiratory Rate 12 Setting Ventilator Respiratory Rate 12 Setting Ventilator Respiratory Rate 12 Setting Ventilator Respiratory Rate 12 Setting Ventilator Respiratory Rate 12 Setting Ventilator Respiratory Rate 12 Setting Ventilator Respiratory Rate 12 Setting Actual Respiratory Rate 12 Actual Respiratory Rate 14 Actual Respiratory Rate 12 Actual Respiratory Rate 25 Actual Respiratory Rate 12 Actual Respiratory Rate 12 Actual Respiratory Rate 12 Actual Respiratory Rate 12 Actual Respiratory Rate 12 Actual Respiratory Rate 12 Actual Respiratory Rate 12 Actual Respiratory Rate 12 Positive End Expiratory 5 Pressure Positive End Expiratory 5 Pressure Positive End Expiratory 5 Pressure Positive End Expiratory 5 Pressure Positive End Expiratory 5 Pressure Positive End Expiratory 5 Pressure Positive End Expiratory 5 Pressure Positive End Expiratory 5 Pressure Positive End Expiratory 5 Pressure Positive End Expiratory 5 Pressure Positive End Expiratory 5 Pressure Positive End Expiratory 5 Pressure Positive End Expiratory 5 Pressure Peak Inspiratory Airway 36 Pressure Peak Inspiratory Airway 34 Pressure Peak Inspiratory Airway 37 Pressure Peak Inspiratory Airway 35 Pressure Peak Inspiratory Airway 47 Pressure Peak Inspiratory Airway 38 Pressure Peak Inspiratory Airway 36 Pressure Peak Inspiratory Airway 35 Pressure Peak Inspiratory Airway 35 Pressure Peak Inspiratory Airway 34 Pressure Peak Inspiratory Airway 35 Pressure Peak Inspiratory Airway 43 Pressure Results - Laboratory Findings CBC and BMP: 08/12/16 03:53 08/12/16 03:53 ABG ABG pH 7.35 pH Units (7.32-7.45) 08/12/16 04:09 ABG pCO2 54 mmHg (35-45) H 08/12/16 04:09 ABG pO2 109 mmHg (85-104) H 08/12/16 04:09 ABG O2 Saturation 98 % (95-98) 08/12/16 04:09 PT/INR, D-dimer PT 14.0 Seconds (9.4-12.1) H 08/08/16 21:17 Abnormal lab findings: Abnormal lab results RBC 3.79 M/mcL (4.19-5.50) L 08/12/16 03:53 Hgb 9.7 g/dL (12.9-16.9) L 08/12/16 03:53 Hct 33.3 % (37.5-50.1) L 08/12/16 03:53 MCH 25.6 pg (28.0-33.3) L 08/12/16 03:53 MCHC 29.1 g/dL (31.6-35.5) L 08/12/16 03:53 RDW 16.4 % (11.5-14.5) H 08/12/16 03:53 Eosinophils # 1.0 K/mcL (0.0-0.6) H 08/12/16 03:53 Nucleated RBCs/100 WBC 0.2 /100 WBC (0) H 08/09/16 11:27 Polychromasia 1+ (Not Present) A 08/11/16 05:04 Poikilocytosis 1+ (Not Present) A 08/11/16 05:04 Anisocytosis 1+ (Not Present) A 08/08/16 13:55 PT 14.0 Seconds (9.4-12.1) H 08/08/16 21:17 ABG pCO2 54 mmHg (35-45) H 08/12/16 04:09 ABG pO2 109 mmHg (85-104) H 08/12/16 04:09 ABG HCO3 29.8 mEQ/L (21-27) H 08/12/16 04:09 ABG Total CO2 31.5 mEq/L (20-26) H 08/12/16 04:09 ABG Base Excess 3.3 mEq/L (-2.0 to 3.0) H 08/12/16 04:09 BUN 37 mg/dL (8-26) H 08/12/16 03:53 Creatinine 1.44 mg/dL (0.72-1.25) H 08/12/16 03:53 Est GFR (Non-Af Amer) 53 (> 60) L 08/12/16 03:53 Glucose 118 mg/dL (70-99) H 08/12/16 03:53 Calculated Osmolality 302 (280-300) H 08/12/16 03:53 Calcium 7.9 mg/dL (8.6-10.8) L 08/12/16 03:53 Ionized Calcium 1.13 mmol/L (1.15-1.35) L 08/12/16 03:53 Phosphorus 4.8 mg/dL (2.3-4.7) H 08/12/16 03:53 AST 214 Units/L (5-34) H 08/12/16 03:53 ALT 505 Units/L (0-55) H 08/12/16 03:53 Serum Total Protein 5.3 g/dL (6.0-8.3) L 08/12/16 03:53 Albumin 1.9 g/dL (3.5-5.0) L 08/12/16 03:53 Albumin/Globulin Ratio 0.6 (1.1-2.2) L 08/12/16 03:53 Ur Specimen Adequacy See below A 08/12/16 01:40 Urine Clarity Cloudy (Clear) A 08/12/16 01:40 Urine Protein 30 mg/dL (Neg-Trace) H 08/12/16 01:40 Urine Blood Small (Negative) H 08/12/16 01:40 Ur Leukocyte Esterase Moderate (Negative) H 08/12/16 01:40 Urine Microscopic RBC 3-5 per hpf (0-3) H 08/12/16 01:40 Urine Microscopic WBC 15-30 per hpf (0-3) H 08/12/16 01:40 Ur Squamous Epith Cells Many per lpf (None-Few) H 08/12/16 01:40 Urine Yeast Few per hpf (None Seen) H 08/12/16 01:40 Ur Culture Indicated? YES (NO) A 08/12/16 01:40 Vancomycin Trough 47.7 mcg/mL (10-20) H* 08/11/16 14:55 Acetaminophen < 1.0 mcg/mL (10-30) L 08/11/16 14:55 EBV Capsid Ag IgG Ab >750.0 U/mL (0.0-21.9) H 08/09/16 11:27 EBV Nuclear Ag Ab Titer 245.0 U/mL (0.0-21.9) H 08/09/16 11:27 - Microbiology Findings Microbiology Findings: Microbiology, Last 48 Hours 08/09/16 18:24 Wound Culture - Final Other-Specify in Comments Methicillin Resistant S.aureus - Clinical Findings Intake & Output: Intake & Output 08/11/16 08/11/16 08/12/16 15:59 23:59 07:59 Intake Total 526 / 526 527 / 527 420 / 420 Output Total 400 / 400 50 / 50 50 / 50 Balance 126 / 126 477 / 477 370 / 370 Weight 108.908 kg
[2016-08-12] MEDS ORDERED: 0.9 % Sodium Chloride 500 ML IVC ONE (08:14)
[2016-08-12] MEDS: Chlorhexidine Rinse 15 ML MOUTHWASH MM SCH ×2 (08:15→20:42)
[2016-08-12] MEDS: *HR* Heparin 5,000 UNIT/ML VIAL SQ SCH ×3 (08:15→23:31)
[2016-08-12] MEDS: Piperacillin/Tazobactam 3.375 GM in D5% in Water (Mini-Bag+) 100 ML IVPB SCH ×3 (08:15→23:31)
[2016-08-12] MEDS: Folic Acid 1 MG TABLET PO SCH (08:15)
[2016-08-12] MEDS: Pantoprazole 40 MG VIAL IVP SCH (08:15)
[2016-08-12] MEDS: FentaNYL (PF) 1,000 MCG in 0.9 % Sodium Chloride 80 ML IVC SCH (09:41)
[2016-08-12] MEDS: Nystatin POWDER 30 GM BOTTLE TP SCH ×2 (09:43→20:42)
[2016-08-12] MEDS: Gentamicin Oint 15 GM TUBE TP SCH ×2 (09:43→20:43)
[2016-08-12 20:34] LABS: ABG HCO3 28.6 mEQ/L (21-27); ABG Oxygen Saturation 98 % (95-98); ABG PCO2 53 mmHg (35-45); ABG PH 7.34 pH Units (7.32-7.45); ABG PO2 112 mmHg (85-104); ABG TCO2 30.2 mEq/L (20-26)
[2016-08-12 20:35] LABS: Blood Gas FiO2 30 %
[2016-08-13 04:04] LABS: Basophils # 0.1 K/mcL (0.0-0.2); Basophils % 0.5 %; Eosinophils # 1.1 K/mcL (0.0-0.6); Eosinophils % 11.3 %; Hematocrit 32.1 % (37.5-50.1); Hemoglobin 9.5 g/dL (12.9-16.9); Immature Granulocytes % 1.1 % (0-4); Immature Platelets 3.7 % (1.1-6.1); Lymphocytes # 1.1 K/mcL (0.6-4.6); Lymphocytes % 11.3 %; Mean Corpuscular HGB Conc 29.6 g/dL (31.6-35.5); Mean Corpuscular Hemoglobin 26.1 pg (28.0-33.3); Mean Corpuscular Volume 88.2 fL (83.0-100.0); Mean Platelet Volume 10.6 fL (9.4-12.4); Monocytes # 1.2 K/mcL (0.0-1.3); Monocytes % 13.3 %; Neutrophils # 5.8 K/mcL (1.6-8.9); Platelet Count 199 K/mcL (140-400); Red Blood Count 3.64 M/mcL (4.19-5.50); Red Cell Distribution Width 16.6 % (11.5-14.5); Segmented Neutrophils % 62.5 %
[2016-08-13] MEDS: Ipratropium/Albuterol Neb 3 ML IH SCH ×4 (04:18→21:52)
[2016-08-13 04:19] LABS: Albumin/Globulin Ratio 0.5 (1.1-2.2); Bilirubin,Total 0.3 mg/dL (0.2-1.2); Calcium 7.9 mg/dL (8.6-10.8); Globulin 3.9 g/dL (2.4-3.5); Potassium 4.6 mEq/L (3.5-4.5); Total Protein 5.9 g/dL (6.0-8.3)
[2016-08-13] MEDS: Lacri-Lube 3.5 GM TUBE BOTH EYES SCH ×5 (04:20→22:21)
[2016-08-13] MEDS: FentaNYL (PF) 1,000 MCG in 0.9 % Sodium Chloride 80 ML IVC SCH (04:27)
[2016-08-13 05:09] LABS: Microcytosis Present (Not Present); Poikilocytosis 1+ (Not Present); Polychromasia 1+ (Not Present)
[2016-08-13 05:10] LABS: Hypochromasia Present (Not Present); Ovalocytes 1+ (Not Present)
[2016-08-13 05:11] LABS: Large Platelets Present (Not Present); Platelet Estimate Normal (Normal)
[2016-08-13 05:30] LABS: ABG Base Excess 3.8 mEq/L (-2.0 to 3.0); ABG HCO3 31.2 mEQ/L (21-27); ABG Oxygen Saturation 95 % (95-98); ABG PCO2 62 mmHg (35-45); ABG PH 7.31 pH Units (7.32-7.45); ABG PO2 85 mmHg (85-104); ABG TCO2 33.1 mEq/L (20-26); Blood Gas FiO2 30 %
--- NOTE | 2016-08-13 07:09 | Pulmonology Progress Note ---
<Barron Husain - Last Filed: 08/13/16 10:03> Date of Encounter: 08/13/16 Time of Encounter: 07:09 Assessment and Plan (1) Acute on chronic respiratory failure with hypoxemia Current Visit: Yes Status: Acute patient intubated due to hypoxemia and hypercapnia likely secondary to chronic respiratory failure secondary to cor pulmonale and OHS as well as pulmonary edema/vascular congestion - prior ECHO 05/25/2016 sub-optimal, LV grossly normal, systolic normal, severe pulm HTN RVSP 75 mmHg - ECHO 08/08/2015 EF 55% with mild pulm HTN RVSP 42 mmHg episodes of desaturation requiring bagging and diminished Vt - CXR 08/12 shows proper placement of ETT, no evidence of pneumonia and no interval changes to pulm edema/vascular congestion - currently Day 6 of Vanc and Zosyn - send sputum culture and consider dc Zosyn - ABG after episode, 7.31/62/85/31.2/33.1/95/3.8 increased frequency to 14 from ABG, current vent settings 14/450/30%/5 PEEP - peak pressures high at upper 30s-lower 40s mild expiratory wheezes on exam scheduled duonebs, symbicort added slowly titrate sedation for CPAP trial when sister is present - plan to extubate tomorrow (Sunday) (2) Acute on chronic respiratory failure with hypercapnia Current Visit: Yes Status: Acute improving, acute on chronic hypercapnia noncompliant with BiPAP prior to intubation plan as above (3) Sepsis Current Visit: Yes Status: Resolved resolved, does not meed SIRS criteria - leukocytosis resolved to 9.3 (10.1) - remains afebrile with HR stable 60-70s MRSA wound culture blood cultures NGTD x2 PICC placed for graphic design intern antibiotics on Day 6 of antibiotics, Vancomycin and Zosyn - ID recommended discontinuation of Meropenem on day 3 and Zosyn was started - pharmacy to dose Vancomycin, trough remains elevated 37.5 - renal function continues to worsen - will send sputum culture and consider discontinuing Zosyn lactate was normal 1.1 Qualifiers: Sepsis type: sepsis due to unspecified organism Qualified Code(s): A41.9 - Sepsis, unspecified organism (4) Cardiopulmonary arrest with successful resuscitation Current Visit: Yes Status: Acute cardiac arrest s/p intubation 08/10 patient vomitied --> bradycardia --> asystole successful resuscitation after 2 rounds of CPR and 1 EPI before ROSC continue to monitor neurologic and cardiopulmonary status currently on sedation and slowly wean to assess neurologic function when respiratory status improves (5) Cellulitis Current Visit: No Status: Acute cellulitic changes to bilateral lower extremity chronic venous stasis MRSA positive wound day 5 of antibiotics, Vancomycin and Zosyn contact precautions continue wound care L knee x-ray shows no joint effusion Infectious Disease and Wound Care/Podiatry have been consulted, recommendations appreciated Qualifiers: Site of cellulitis: extremity Site of cellulitis of extremity: lower extremity Laterality: unspecified laterality Qualified Code(s): L03.119 - Cellulitis of unspecified part of limb (6) STEPHANIE (acute kidney injury) Current Visit: Yes Status: Resolved likely secondary to sepsis and prerenal and possible medications - will check urine sodium and creatinine for FENa making urine but minimal UOP, 350 cc UOP over last 24 hours placed on maintenance 75 mL/hr of NS Vanc trough remains elevated 37.5 pharmacy to dose Vanc will continue to monitor (7) Chronic wound of extremity Current Visit: No Status: Chronic continue wound care Infectious Disease and Podiatry/Wound Care has been consulted (8) Infected stasis ulcer of left lower extremity Current Visit: No Status: Acute plan as above (9) Hypotension Current Visit: Yes Status: Acute continues to have SBP <90 but MAP >65 350 cc UOP and elevated Cr placed on maintenance of 75 mL/hr recent CXR 08/12 suggestive of pulmonary edema and history of diastolic heart failure and cor pulmonale but on exam lungs with mild expiratory wheezes without rales or crackles will monitor fluid status Qualifiers: Hypotension type: hypotension due to drug Qualified Code(s): I95.2 - Hypotension due to drugs (10) Transaminitis Current Visit: Yes Status: Acute significantly improved and continues to downtrend - AST 107 (214) - ALT 377 (505) no evidence of jaundice or scleral icterus GI consulted and recommendations appreciated unclear etiology, consider possible shock liver EBV positive antibodies APAP level is <1 continue to hold Tylenol or any hepatic toxic medicationsno evidence of shock liver negative hepatitis panel no abnormalities on the liver ultrasound, however, limited due to patient comfort (11) Leukocytosis Current Visit: Yes Status: Resolved resolved patient remains afebrile will continue to monitor Qualifiers: Leukocytosis type: unspecified Qualified Code(s): D72.829 - Elevated white blood cell count, unspecified (12) Morbid obesity with BMI of 50.0-59.9, adult Current Visit: Yes Status: Chronic Nutrition consulted - tube feeds at 65 with 200 free water GI prophylaxis with IV Protonix (13) Difficulty with insertion of urinary catheter Current Visit: Yes Status: Acute Urology consulted and much appreciated 14F catheter was placed (14) Difficult intravenous access Current Visit: Yes Status: Acute EPIV in right shoulder and PICC in right basilic (15) Chronic anemia Current Visit: Yes Status: Chronic likely anemia of chronic disease remains stable at 9.3 (9.7) required transfusion Hgb as low as 3.4 in the past 01/07/2016 (16) Goals of care, counseling/discussion Current Visit: Yes Status: Acute sister Kerri BENAVIDES discussed recent events and long-term goals of care, wish for FULL CODE plan for CPAP trial later today (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 (18) DVT prophylaxis Current Visit: No Status: Acute heparin subq for DVT prophylaxis WAITER/WAITRESS TAKE OUT: sedated on Versed 3 Fentanyl 35, no acute distress, opens eyes to voice and follows simple commands Cardio: relatively stable, BPs remains 80-90s with MAPs maintained >65, won maintenance fluid 75 mL/hr after 500 cc bolus, CXR did not show evidence of pneumonia Pulm: lungs with bilateral expiratory wheezes, scheduled duonebs, acceptable ventilation and oxygenation, CPAP trial when sister present and plan to extubate 08/14 GI: Nutrition consulted for tube feeds and free water, GI prophylaxis Heme: DVT prophylaxis, Heparin SQ ID: cellulitis of chronic venous stasis ulcers, ID on board, wound culture + MRSA on Vanc Renal: minimal UOP, elevated Cr, maintenance fluid, check FENa, vanc trough elevated and also on Zosyn, consider discontinuing Zosyn Endo: blood glucose monitored Lines: PICC, all lines checked and no evidence of infections Skin: skin care per nursing routine care, wound care for LE Lytes: continue to monitor and replete PRN Subjective Principal diagnosis: Respiratory failure, sepsis, cellulitis Interval history: Multiple episodes last night where ventilator alarm going off where volume was not delivered with associated oxygen desaturation. He required bagging for several minutes without any difficulty. There was little to suction with each episode. At one point the ventilator was switched out but another incident occurred again. CXR and ABG ordered and reviewed. CXR does not show any interval change, ETT displacement, or consolidation to suggest new pneumonia or mucous plugging. ABG revealed some respiratory acidosis with a low pO2 85 but good O2 saturation 95, CO2 has slowly increased over the past several drawings. Patient was seen and examined at bedside. He continues to be intubated on light sedation. Does not appear to be in any acute distress. He opens his eyes to voice and follows simple commands. He shakes his head when asked if in pain. Objective PUL Vital signs: Last Vital Signs Temp 97.5 F L 08/13/16 04:00 Pulse 64 08/13/16 06:00 Resp 12 08/13/16 06:07 BP 92/46 08/13/16 06:07 Pulse Ox 95 08/13/16 06:07 General appearance: no acute distress (sedated), other (morbidly obese with phenotypic female features, opens eyes to voice and follows simple commands) Eyes: nonicteric, other (PERRL) ENT: other (endotracheal tube and OG in place) Effort: other (mechanical ventilation) Auscultation: bilateral: wheezes (expiratory) Cardiovascular: regular rate and rhythm Gastrointestinal: hypoactive bowel sounds, soft, non-tender, non-distended Integumentary: erythema (blanchable), cellulitis, other (chronic venous stasis ulcers to bilateral LE with cellulitic changes, L leg ankle to lower 1/3 thigh, R leg ankle to knee; diffuse excoriations visualized to bilateral LE; no joint effusion appreciated, no crepitus, erythema or induration above the knee or in the groin/perineal area) Extremities: pulses normal (with doppler), edema, anasarca, other (difficult to palpate pulses due to edema and body habitus, wounds are malodorous and weeping located on bilateral legs, oval wound to the mid right anterior singh, oval wound to the lateral lower right leg, stellate wound to the left lower leg that is circumferential, there is good granulation tissue) non-focal exam, pupils equal and round, unable to assess due to mental status, other (Opens eyes to voice, follows simple commands) EPIV in basilic right upper arm PICC in the right upper arm Ventilator Settings Ventilator Settings: Ventilator Settings, Last 8 Hours Ventilator Mode A/C Ventilator Mode VC+ Ventilator Mode VC+ Ventilator Mode A/C Ventilator Mode VC+ Ventilator Mode VC+ Ventilator Mode VC+ Ventilator Mode VC+ Ventilator Mode VC+ Ventilator Mode VC+ Ventilator Mode VC+ Ventilator Mode VC+ Ventilator Tidal Volume 450 Setting Ventilator Tidal Volume 450 Setting Ventilator Tidal Volume 450 Setting Ventilator Tidal Volume 450 Setting Ventilator Tidal Volume 450 Setting Ventilator Tidal Volume 450 Setting Ventilator Tidal Volume 450 Setting Ventilator Tidal Volume 450 Setting Ventilator Tidal Volume 450 Setting Ventilator Tidal Volume 450 Setting Ventilator Tidal Volume 450 Setting Ventilator Tidal Volume 450 Setting Ventilator Respiratory Rate 12 Setting Ventilator Respiratory Rate 12 Setting Ventilator Respiratory Rate 12 Setting Ventilator Respiratory Rate 12 Setting Ventilator Respiratory Rate 12 Setting Ventilator Respiratory Rate 12 Setting Ventilator Respiratory Rate 12 Setting Ventilator Respiratory Rate 12 Setting Ventilator Respiratory Rate 12 Setting Ventilator Respiratory Rate 12 Setting Ventilator Respiratory Rate 12 Setting Ventilator Respiratory Rate 12 Setting Actual Respiratory Rate 12 Actual Respiratory Rate 12 Actual Respiratory Rate 12 Actual Respiratory Rate 12 Actual Respiratory Rate 12 Actual Respiratory Rate 12 Actual Respiratory Rate 12 Actual Respiratory Rate 12 Actual Respiratory Rate 12 Actual Respiratory Rate 12 Actual Respiratory Rate 12 Positive End Expiratory 5 Pressure Positive End Expiratory 5 Pressure Positive End Expiratory 5 Pressure Positive End Expiratory 5 Pressure Positive End Expiratory 5 Pressure Positive End Expiratory 5 Pressure Positive End Expiratory 5 Pressure Positive End Expiratory 5 Pressure Positive End Expiratory 5 Pressure Positive End Expiratory 5 Pressure Positive End Expiratory 5 Pressure Positive End Expiratory 5 Pressure Peak Inspiratory Airway 37 Pressure Peak Inspiratory Airway 41 Pressure Peak Inspiratory Airway 37 Pressure Peak Inspiratory Airway 46 Pressure Peak Inspiratory Airway 44 Pressure Peak Inspiratory Airway 40 Pressure Peak Inspiratory Airway 43 Pressure Peak Inspiratory Airway 44 Pressure Peak Inspiratory Airway 41 Pressure Peak Inspiratory Airway 35 Pressure Peak Inspiratory Airway 37 Pressure Results - Laboratory Findings CBC and BMP: 08/13/16 03:32 08/13/16 03:32 ABG ABG pH 7.31 pH Units (7.32-7.45) L 08/13/16 05:01 ABG pCO2 62 mmHg (35-45) H 08/13/16 05:01 ABG pO2 85 mmHg (85-104) 08/13/16 05:01 ABG O2 Saturation 95 % (95-98) 08/13/16 05:01 PT/INR, D-dimer PT 14.0 Seconds (9.4-12.1) H 08/08/16 21:17 Abnormal lab findings: Abnormal lab results RBC 3.64 M/mcL (4.19-5.50) L 08/13/16 03:32 Hgb 9.5 g/dL (12.9-16.9) L 08/13/16 03:32 Hct 32.1 % (37.5-50.1) L 08/13/16 03:32 MCH 26.1 pg (28.0-33.3) L 08/13/16 03:32 MCHC 29.6 g/dL (31.6-35.5) L 08/13/16 03:32 RDW 16.6 % (11.5-14.5) H 08/13/16 03:32 Eosinophils # 1.1 K/mcL (0.0-0.6) H 08/13/16 03:32 Nucleated RBCs/100 WBC 0.2 /100 WBC (0) H 08/09/16 11:27 Large Platelets Present (Not Present) A 08/13/16 03:32 Polychromasia 1+ (Not Present) A 08/13/16 03:32 Hypochromasia Present (Not Present) A 08/13/16 03:32 Poikilocytosis 1+ (Not Present) A 08/13/16 03:32 Anisocytosis 1+ (Not Present) A 08/08/16 13:55 Microcytosis Present (Not Present) A 08/13/16 03:32 Ovalocytes 1+ (Not Present) A 08/13/16 03:32 PT 14.0 Seconds (9.4-12.1) H 08/08/16 21:17 ABG pH 7.31 pH Units (7.32-7.45) L 08/13/16 05:01 ABG pCO2 62 mmHg (35-45) H 08/13/16 05:01 ABG HCO3 31.2 mEQ/L (21-27) H 08/13/16 05:01 ABG Total CO2 33.1 mEq/L (20-26) H 08/13/16 05:01 ABG Base Excess 3.8 mEq/L (-2.0 to 3.0) H 08/13/16 05:01 Potassium 4.6 mEq/L (3.5-4.5) H 08/13/16 03:32 BUN 50 mg/dL (8-26) H D 08/13/16 03:32 Creatinine 1.81 mg/dL (0.72-1.25) H 08/13/16 03:32 Est GFR ( Amer) 49 (> 60) L 08/13/16 03:32 Est GFR (Non-Af Amer) 41 (> 60) L 08/13/16 03:32 BUN/Creatinine Ratio 28 (6-26) H 08/13/16 03:32 POC Glucose 115 (58-89) H 08/12/16 23:28 Calculated Osmolality 301 (280-300) H 08/13/16 03:32 Calcium 7.9 mg/dL (8.6-10.8) L 08/13/16 03:32 Ionized Calcium 1.13 mmol/L (1.15-1.35) L 08/12/16 03:53 Phosphorus 4.8 mg/dL (2.3-4.7) H 08/12/16 03:53 Magnesium 2.9 mg/dL (1.6-2.6) H D 08/12/16 20:30 AST 107 Units/L (5-34) H 08/13/16 03:32 ALT 377 Units/L (0-55) H 08/13/16 03:32 Serum Total Protein 5.9 g/dL (6.0-8.3) L 08/13/16 03:32 Albumin 2.0 g/dL (3.5-5.0) L 08/13/16 03:32 Globulin 3.9 g/dL (2.4-3.5) H 08/13/16 03:32 Albumin/Globulin Ratio 0.5 (1.1-2.2) L 08/13/16 03:32 Ur Specimen Adequacy See below A 08/12/16 01:40 Urine Clarity Cloudy (Clear) A 08/12/16 01:40 Urine Protein 30 mg/dL (Neg-Trace) H 08/12/16 01:40 Urine Blood Small (Negative) H 08/12/16 01:40 Ur Leukocyte Esterase Moderate (Negative) H 08/12/16 01:40 Urine Microscopic RBC 3-5 per hpf (0-3) H 08/12/16 01:40 Urine Microscopic WBC 15-30 per hpf (0-3) H 08/12/16 01:40 Ur Squamous Epith Cells Many per lpf (None-Few) H 08/12/16 01:40 Urine Yeast Few per hpf (None Seen) H 08/12/16 01:40 Ur Culture Indicated? YES (NO) A 08/12/16 01:40 Vancomycin Trough 37.5 mcg/mL (10-20) H* 08/12/16 15:10 Acetaminophen < 1.0 mcg/mL (10-30) L 08/11/16 14:55 EBV Capsid Ag IgG Ab >750.0 U/mL (0.0-21.9) H 08/09/16 11:27 EBV Nuclear Ag Ab Titer 245.0 U/mL (0.0-21.9) H 08/09/16 11:27 - Microbiology Findings Microbiology Findings: Microbiology, Last 48 Hours 08/12/16 01:40 Urine Culture - Final Urine,Clean Catch No growth. 08/09/16 18:24 Wound Culture - Final Other-Specify in Comments Methicillin Resistant S.aureus - Diagnostic Findings Chest x-ray: report reviewed, image reviewed - Clinical Findings Intake & Output: Intake & Output 08/12/16 08/12/16 08/13/16 15:59 23:59 07:59 Intake Total 1792 / 1792 996 / 996 481 / 481 Output Total 125 / 125 90 / 90 25 / 25 Balance 1667 / 1667 906 / 906 456 / 456 Weight 109.951 kg Consult Discharge Plan - Plan Referrals: NO,PCP [Primary Care Provider] - <Enrique Bone - Last Filed: 08/13/16 11:26> Date of Encounter: 08/13/16 Objective PUL Vital signs: Last Vital Signs Temp 97.2 F L 08/13/16 07:00 Pulse 63 08/13/16 10:00 Resp 14 08/13/16 10:39 BP 88/49 08/13/16 10:39 Pulse Ox 97 08/13/16 10:39 Ventilator Settings Ventilator Settings: Ventilator Settings, Last 8 Hours Ventilator Mode VC+ Ventilator Mode VC+ Ventilator Mode VC+ Ventilator Mode VC+ Ventilator Mode VC+ Ventilator Mode A/C Ventilator Mode VC+ Ventilator Mode VC+ Ventilator Mode A/C Ventilator Mode VC+ Ventilator Mode VC+ Ventilator Tidal Volume 450 Setting Ventilator Tidal Volume 450 Setting Ventilator Tidal Volume 450 Setting Ventilator Tidal Volume 450 Setting Ventilator Tidal Volume 450 Setting Ventilator Tidal Volume 450 Setting Ventilator Tidal Volume 450 Setting Ventilator Tidal Volume 450 Setting Ventilator Tidal Volume 450 Setting Ventilator Tidal Volume 450 Setting Ventilator Tidal Volume 450 Setting Ventilator Respiratory Rate 14 Setting Ventilator Respiratory Rate 14 Setting Ventilator Respiratory Rate 12 Setting Ventilator Respiratory Rate 12 Setting Ventilator Respiratory Rate 12 Setting Ventilator Respiratory Rate 12 Setting Ventilator Respiratory Rate 12 Setting Ventilator Respiratory Rate 12 Setting Ventilator Respiratory Rate 12 Setting Ventilator Respiratory Rate 12 Setting Ventilator Respiratory Rate 12 Setting Actual Respiratory Rate 14 Actual Respiratory Rate 14 Actual Respiratory Rate 12 Actual Respiratory Rate 12 Actual Respiratory Rate 12 Actual Respiratory Rate 12 Actual Respiratory Rate 12 Actual Respiratory Rate 12 Actual Respiratory Rate 12 Actual Respiratory Rate 12 Positive End Expiratory 5 Pressure Positive End Expiratory 5 Pressure Positive End Expiratory 5 Pressure Positive End Expiratory 5 Pressure Positive End Expiratory 5 Pressure Positive End Expiratory 5 Pressure Positive End Expiratory 5 Pressure Positive End Expiratory 5 Pressure Positive End Expiratory 5 Pressure Positive End Expiratory 5 Pressure Positive End Expiratory 5 Pressure Peak Inspiratory Airway 37 Pressure Peak Inspiratory Airway 42 Pressure Peak Inspiratory Airway 45 Pressure Peak Inspiratory Airway 43 Pressure Peak Inspiratory Airway 41 Pressure Peak Inspiratory Airway 37 Pressure Peak Inspiratory Airway 41 Pressure Peak Inspiratory Airway 37 Pressure Peak Inspiratory Airway 46 Pressure Peak Inspiratory Airway 44 Pressure Results - Laboratory Findings CBC and BMP: 08/13/16 03:32 08/13/16 03:32 ABG ABG pH 7.31 pH Units (7.32-7.45) L 08/13/16 05:01 ABG pCO2 62 mmHg (35-45) H 08/13/16 05:01 ABG pO2 85 mmHg (85-104) 08/13/16 05:01 ABG O2 Saturation 95 % (95-98) 08/13/16 05:01 PT/INR, D-dimer PT 14.0 Seconds (9.4-12.1) H 08/08/16 21:17 Abnormal lab findings: Abnormal lab results RBC 3.64 M/mcL (4.19-5.50) L 08/13/16 03:32 Hgb 9.5 g/dL (12.9-16.9) L 08/13/16 03:32 Hct 32.1 % (37.5-50.1) L 08/13/16 03:32 MCH 26.1 pg (28.0-33.3) L 08/13/16 03:32 MCHC 29.6 g/dL (31.6-35.5) L 08/13/16 03:32 RDW 16.6 % (11.5-14.5) H 08/13/16 03:32 Eosinophils # 1.1 K/mcL (0.0-0.6) H 08/13/16 03:32 Nucleated RBCs/100 WBC 0.2 /100 WBC (0) H 08/09/16 11:27 Large Platelets Present (Not Present) A 08/13/16 03:32 Polychromasia 1+ (Not Present) A 08/13/16 03:32 Hypochromasia Present (Not Present) A 08/13/16 03:32 Poikilocytosis 1+ (Not Present) A 08/13/16 03:32 Anisocytosis 1+ (Not Present) A 08/08/16 13:55 Microcytosis Present (Not Present) A 08/13/16 03:32 Ovalocytes 1+ (Not Present) A 08/13/16 03:32 PT 14.0 Seconds (9.4-12.1) H 08/08/16 21:17 ABG pH 7.31 pH Units (7.32-7.45) L 08/13/16 05:01 ABG pCO2 62 mmHg (35-45) H 08/13/16 05:01 ABG HCO3 31.2 mEQ/L (21-27) H 08/13/16 05:01 ABG Total CO2 33.1 mEq/L (20-26) H 08/13/16 05:01 ABG Base Excess 3.8 mEq/L (-2.0 to 3.0) H 08/13/16 05:01 Potassium 4.6 mEq/L (3.5-4.5) H 08/13/16 03:32 BUN 50 mg/dL (8-26) H D 08/13/16 03:32 Creatinine 1.81 mg/dL (0.72-1.25) H 08/13/16 03:32 Est GFR ( Amer) 49 (> 60) L 08/13/16 03:32 Est GFR (Non-Af Amer) 41 (> 60) L 08/13/16 03:32 BUN/Creatinine Ratio 28 (6-26) H 08/13/16 03:32 POC Glucose 115 (58-89) H 08/12/16 23:28 Calculated Osmolality 301 (280-300) H 08/13/16 03:32 Calcium 7.9 mg/dL (8.6-10.8) L 08/13/16 03:32 Ionized Calcium 1.13 mmol/L (1.15-1.35) L 08/12/16 03:53 Phosphorus 4.8 mg/dL (2.3-4.7) H 08/12/16 03:53 Magnesium 2.9 mg/dL (1.6-2.6) H D 08/12/16 20:30 AST 107 Units/L (5-34) H 08/13/16 03:32 ALT 377 Units/L (0-55) H 08/13/16 03:32 Serum Total Protein 5.9 g/dL (6.0-8.3) L 08/13/16 03:32 Albumin 2.0 g/dL (3.5-5.0) L 08/13/16 03:32 Globulin 3.9 g/dL (2.4-3.5) H 08/13/16 03:32 Albumin/Globulin Ratio 0.5 (1.1-2.2) L 08/13/16 03:32 Ur Specimen Adequacy See below A 08/12/16 01:40 Urine Clarity Cloudy (Clear) A 08/12/16 01:40 Urine Protein 30 mg/dL (Neg-Trace) H 08/12/16 01:40 Urine Blood Small (Negative) H 08/12/16 01:40 Ur Leukocyte Esterase Moderate (Negative) H 08/12/16 01:40 Urine Microscopic RBC 3-5 per hpf (0-3) H 08/12/16 01:40 Urine Microscopic WBC 15-30 per hpf (0-3) H 08/12/16 01:40 Ur Squamous Epith Cells Many per lpf (None-Few) H 08/12/16 01:40 Urine Yeast Few per hpf (None Seen) H 08/12/16 01:40 Ur Culture Indicated? YES (NO) A 08/12/16 01:40 Vancomycin Trough 37.5 mcg/mL (10-20) H* 08/12/16 15:10 Acetaminophen < 1.0 mcg/mL (10-30) L 08/11/16 14:55 EBV Capsid Ag IgG Ab >750.0 U/mL (0.0-21.9) H 08/09/16 11:27 EBV Nuclear Ag Ab Titer 245.0 U/mL (0.0-21.9) H 08/09/16 11:27 - Microbiology Findings Microbiology Findings: Microbiology, Last 48 Hours 08/12/16 01:40 Urine Culture - Final Urine,Clean Catch No growth. 08/09/16 18:24 Wound Culture - Final Other-Specify in Comments Methicillin Resistant S.aureus - Clinical Findings Intake & Output: Intake & Output 08/12/16 08/13/16 08/13/16 23:59 07:59 15:59 Intake Total 996 / 996 481 / 481 800 / 800 Output Total 90 / 90 Balance 906 / 906 456 / 456 775 / 775 Weight 109.951 kg - Attending Attestation I examined this patient and my medical decision-making was reviewed with the COMMUNICATION ANALYST/PA/Advanced Practice Nurse/Resident Physician. I agree with the documented findings, disposition and treatment plan as described except to the extent set forth below. Patient seen and examined. Labs, radiology, chart personally reviewed. Agree with resident's history and physical, assessment, plan with following comments: WAITER/WAITRESS TAKE OUT: Patient sedated, responding to stimuli. Pulmonary: Acceptable oxygenation and ventilation. Spontaneous breathing trial when the sister around. Patient had few episodes of hypoxia requiring bagging. I do not have a good explanation for this, however I suspect bronchospasm or atelectasis. We will add Symbicort to his inhalers. A doubt will extubate today and less he passed all the parameters. Cardiovascular: stable GI: Nutrition per dietary and GI prophylaxis per routine Heme: DVT prophylaxis per routine ID: Continue antibiotics and plan to de-escalation Renal; urine out put and renal funtion reviewed. Worsening renal function could be multifactorial. Check urine analysis as well as renal ultrasound and bolus with IV fluid with maintenance. Endorcine: blood glucose is monitored Lines: all lines checked and no evidence of infections Skin: skin care to prevent pressure ulcers per nursing routine care I feel overall prognosis for this patient is poor with multiple hospitalizations and chronic lower extremities infection.
[2016-08-13] MEDS ORDERED: 0.9 % Sodium Chloride 500 ML IVC ONE (07:38)
[2016-08-13] MEDS: Chlorhexidine Rinse 15 ML MOUTHWASH MM SCH ×2 (07:50→20:39)
[2016-08-13] MEDS: Piperacillin/Tazobactam 3.375 GM in D5% in Water (Mini-Bag+) 100 ML IVPB SCH ×2 (07:51→16:13)
[2016-08-13] MEDS: Folic Acid 1 MG TABLET PO SCH (07:51)
[2016-08-13] MEDS: *HR* Heparin 5,000 UNIT/ML VIAL SQ SCH ×2 (07:52→16:12)
[2016-08-13] MEDS: Nystatin POWDER 30 GM BOTTLE TP SCH ×2 (07:54→22:27)
[2016-08-13] MEDS: Pantoprazole 40 MG VIAL IVP SCH (07:55)
[2016-08-13] MEDS: 0.9 % Sodium Chloride 1,000 ML IVC SCH ×2 (08:54→22:22)
[2016-08-13] MEDS: Budesonide/Formoterol 160/4.5 MDI IH SCH ×2 (09:16→21:52)
[2016-08-13] MEDS: Gentamicin Oint 15 GM TUBE TP SCH ×2 (13:21→22:22)
[2016-08-13 22:26] LABS: Bilirubin,Urine Negative (Negative); Blood,Urine Moderate (Negative); Clarity,Urine Cloudy (Clear); Color,Urine Yellow (Yellow); Glucose,Urine (UA) Normal (Normal); Ketones,Urine Negative (Negative); Leukocyte Esterase,Urine Moderate (Negative); Nitrite,Urine Negative (Negative); Protein,Urine 100 mg/dL (Neg-Trace); Specific Gravity,Urine 1.023 (1.010-1.025); Urobilinogen,Urine Normal (Normal)
[2016-08-13 22:28] LABS: Bacteria,Urine None Seen per hpf (None-Few); Hyaline Casts,Urine Few per lpf (None-Few); Squamous Epithelial Cell,Urine Many per lpf (None-Few); WBC,Urine TNTC per hpf (0-3)
[2016-08-13 22:37] LABS: Yeast,Urine Few per hpf (None Seen)
[2016-08-14] MEDS: Piperacillin/Tazobactam 3.375 GM in D5% in Water (Mini-Bag+) 100 ML IVPB SCH ×4 (00:01→23:26)
[2016-08-14] MEDS: *HR* Heparin 5,000 UNIT/ML VIAL SQ SCH ×4 (00:02→23:26)
[2016-08-14] MEDS: Lacri-Lube 3.5 GM TUBE BOTH EYES SCH ×7 (00:17→23:27)
[2016-08-14] MEDS: FentaNYL (PF) 1,000 MCG in 0.9 % Sodium Chloride 80 ML IVC SCH (00:17)
[2016-08-14] MEDS: Ipratropium/Albuterol Neb 3 ML IH SCH ×4 (04:02→21:27)
[2016-08-14 04:09] LABS: Basophils # 0.1 K/mcL (0.0-0.2); Basophils % 0.5 %; Eosinophils # 0.9 K/mcL (0.0-0.6); Eosinophils % 9.7 %; Hematocrit 32.8 % (37.5-50.1); Hemoglobin 9.6 g/dL (12.9-16.9); Lymphocytes # 1.3 K/mcL (0.6-4.6); Lymphocytes % 14.4 %; Mean Corpuscular HGB Conc 29.3 g/dL (31.6-35.5); Mean Corpuscular Hemoglobin 25.3 pg (28.0-33.3); Mean Corpuscular Volume 86.5 fL (83.0-100.0); Monocytes # 1.2 K/mcL (0.0-1.3); Monocytes % 12.5 %; Neutrophils # 5.8 K/mcL (1.6-8.9); Platelet Count 202 K/mcL (140-400); Red Blood Count 3.79 M/mcL (4.19-5.50); Red Cell Distribution Width 16.2 % (11.5-14.5); Segmented Neutrophils % 61.9 %
[2016-08-14 04:19] LABS: Creatinine,Urine 46 mg/dL; Sodium, Urine < 20.0 mEq/L
[2016-08-14 04:22] LABS: Albumin 1.9 g/dL (3.5-5.0); Albumin/Globulin Ratio 0.5 (1.1-2.2); Bilirubin,Total 0.3 mg/dL (0.2-1.2); Calcium 7.9 mg/dL (8.6-10.8); Globulin 3.9 g/dL (2.4-3.5); Magnesium 2.5 mg/dL (1.6-2.6); Potassium 4.3 mEq/L (3.5-4.5); Total Protein 5.8 g/dL (6.0-8.3)
[2016-08-14 04:52] LABS: ABG Base Excess -1.4 mEq/L (-2.0 to 3.0); ABG HCO3 24.3 mEQ/L (21-27); ABG Oxygen Saturation 98 % (95-98); ABG PCO2 44 mmHg (35-45); ABG PH 7.35 pH Units (7.32-7.45); ABG PO2 105 mmHg (85-104); ABG TCO2 25.7 mEq/L (20-26)
[2016-08-14 04:54] LABS: Blood Gas FiO2 30 %
[2016-08-14 05:36] LABS: Ionized Calcium 0.98 mmol/L (1.15-1.35)
[2016-08-14 05:44] LABS: Phosphorous 6.5 mg/dL (2.3-4.7)
--- NOTE | 2016-08-14 07:43 | Pulmonology Progress Note ---
<MelanieDereck W - Last Filed: 08/14/16 13:04> Date of Encounter: 08/14/16 Objective PUL Vital signs: Last Vital Signs Temp 97.6 F 08/14/16 07:25 Pulse 58 08/14/16 07:25 Resp 14 08/14/16 07:25 BP 96/57 08/14/16 07:25 Pulse Ox 97 08/14/16 07:25 Ventilator Settings Ventilator Settings: Ventilator Settings, Last 8 Hours Ventilator Mode A/C Ventilator Mode A/C Ventilator Mode A/C Ventilator Mode A/C Ventilator Mode A/C Ventilator Mode A/C Ventilator Mode A/C Ventilator Mode A/C Ventilator Mode A/C Ventilator Mode A/C Ventilator Tidal Volume 450 Setting Ventilator Tidal Volume 450 Setting Ventilator Tidal Volume 450 Setting Ventilator Tidal Volume 450 Setting Ventilator Tidal Volume 450 Setting Ventilator Tidal Volume 450 Setting Ventilator Tidal Volume 450 Setting Ventilator Tidal Volume 450 Setting Ventilator Tidal Volume 450 Setting Ventilator Tidal Volume 450 Setting Ventilator Respiratory Rate 14 Setting Ventilator Respiratory Rate 14 Setting Ventilator Respiratory Rate 14 Setting Ventilator Respiratory Rate 14 Setting Ventilator Respiratory Rate 14 Setting Ventilator Respiratory Rate 14 Setting Ventilator Respiratory Rate 14 Setting Ventilator Respiratory Rate 14 Setting Ventilator Respiratory Rate 14 Setting Ventilator Respiratory Rate 14 Setting Actual Respiratory Rate 15 Actual Respiratory Rate 14 Actual Respiratory Rate 14 Actual Respiratory Rate 14 Actual Respiratory Rate 14 Actual Respiratory Rate 14 Actual Respiratory Rate 14 Actual Respiratory Rate 14 Actual Respiratory Rate 14 Positive End Expiratory 5 Pressure Positive End Expiratory 5 Pressure Positive End Expiratory 5 Pressure Positive End Expiratory 5 Pressure Positive End Expiratory 5 Pressure Positive End Expiratory 5 Pressure Positive End Expiratory 5 Pressure Positive End Expiratory 5 Pressure Positive End Expiratory 5 Pressure Positive End Expiratory 5 Pressure Peak Inspiratory Airway 47 Pressure Peak Inspiratory Airway 47 Pressure Peak Inspiratory Airway 46 Pressure Peak Inspiratory Airway 43 Pressure Peak Inspiratory Airway 42 Pressure Peak Inspiratory Airway 42 Pressure Peak Inspiratory Airway 46 Pressure Peak Inspiratory Airway 42 Pressure Peak Inspiratory Airway 42 Pressure Results - Laboratory Findings CBC and BMP: 08/14/16 04:00 08/14/16 04:00 ABG ABG pH 7.35 pH Units (7.32-7.45) 08/14/16 04:40 ABG pCO2 44 mmHg (35-45) 08/14/16 04:40 ABG pO2 105 mmHg (85-104) H 08/14/16 04:40 ABG O2 Saturation 98 % (95-98) 08/14/16 04:40 PT/INR, D-dimer PT 14.0 Seconds (9.4-12.1) H 08/08/16 21:17 Abnormal lab findings: Abnormal lab results RBC 3.79 M/mcL (4.19-5.50) L 08/14/16 04:00 Hgb 9.6 g/dL (12.9-16.9) L 08/14/16 04:00 Hct 32.8 % (37.5-50.1) L 08/14/16 04:00 MCH 25.3 pg (28.0-33.3) L 08/14/16 04:00 MCHC 29.3 g/dL (31.6-35.5) L 08/14/16 04:00 RDW 16.2 % (11.5-14.5) H 08/14/16 04:00 Eosinophils # 0.9 K/mcL (0.0-0.6) H 08/14/16 04:00 Nucleated RBCs/100 WBC 0.2 /100 WBC (0) H 08/09/16 11:27 Large Platelets Present (Not Present) A 08/13/16 03:32 Polychromasia 1+ (Not Present) A 08/13/16 03:32 Hypochromasia Present (Not Present) A 08/13/16 03:32 Poikilocytosis 1+ (Not Present) A 08/13/16 03:32 Anisocytosis 1+ (Not Present) A 08/08/16 13:55 Microcytosis Present (Not Present) A 08/13/16 03:32 Ovalocytes 1+ (Not Present) A 08/13/16 03:32 PT 14.0 Seconds (9.4-12.1) H 08/08/16 21:17 ABG pO2 105 mmHg (85-104) H 08/14/16 04:40 BUN 59 mg/dL (8-26) H 08/14/16 04:00 Creatinine 2.08 mg/dL (0.72-1.25) H 08/14/16 04:00 Est GFR ( Amer) 42 (> 60) L 08/14/16 04:00 Est GFR (Non-Af Amer) 35 (> 60) L 08/14/16 04:00 BUN/Creatinine Ratio 28 (6-26) H 08/14/16 04:00 Calculated Osmolality 302 (280-300) H 08/14/16 04:00 Calcium 7.9 mg/dL (8.6-10.8) L 08/14/16 04:00 Ionized Calcium 0.98 mmol/L (1.15-1.35) L 08/14/16 05:20 Phosphorus 6.5 mg/dL (2.3-4.7) H 08/14/16 05:20 AST 70 Units/L (5-34) H 08/14/16 04:00 ALT 252 Units/L (0-55) H 08/14/16 04:00 Alkaline Phosphatase 152 Units/L (38-126) H 08/14/16 04:00 Serum Total Protein 5.8 g/dL (6.0-8.3) L 08/14/16 04:00 Albumin 1.9 g/dL (3.5-5.0) L 08/14/16 04:00 Globulin 3.9 g/dL (2.4-3.5) H 08/14/16 04:00 Albumin/Globulin Ratio 0.5 (1.1-2.2) L 08/14/16 04:00 Prealbumin 8.0 mg/dL (18.0-45.0) L 08/14/16 04:00 Ur Specimen Adequacy See below A 08/12/16 01:40 Urine Clarity Cloudy (Clear) A 08/13/16 22:00 Urine Protein 100 mg/dL (Neg-Trace) H 08/13/16 22:00 Urine Blood Moderate (Negative) H 08/13/16 22:00 Ur Leukocyte Esterase Moderate (Negative) H 08/13/16 22:00 Urine Microscopic RBC 5-15 per hpf (0-3) H 08/13/16 22:00 Urine Microscopic WBC TNTC per hpf (0-3) H 08/13/16 22:00 Ur Squamous Epith Cells Many per lpf (None-Few) H 08/13/16 22:00 Urine Yeast Few per hpf (None Seen) H 08/13/16 22:00 Ur Culture Indicated? YES (NO) A 08/13/16 22:00 Vancomycin Trough 37.5 mcg/mL (10-20) H* 08/12/16 15:10 Acetaminophen < 1.0 mcg/mL (10-30) L 08/11/16 14:55 EBV Capsid Ag IgG Ab >750.0 U/mL (0.0-21.9) H 08/09/16 11:27 EBV Nuclear Ag Ab Titer 245.0 U/mL (0.0-21.9) H 08/09/16 11:27 - Microbiology Findings Microbiology Findings: Microbiology, Last 48 Hours 08/13/16 10:30 Sputum Culture - Preliminary Sputum Gram Negative Lavell 08/12/16 01:40 Urine Culture - Final Urine,Clean Catch No growth. - Clinical Findings Intake & Output: Intake & Output 08/13/16 08/14/16 08/14/16 23:59 07:59 15:59 Intake Total 2246 / 2246 1293 / 1293 Output Total 200 / 200 150 / 150 Balance 2046 / 2046 1143 / 1143 Weight 111 kg Consult Discharge Plan - Plan Referrals: NO,PCP [Primary Care Provider] - - Attending Attestation I examined this patient and my medical decision-making was reviewed with the HAT AND CAP SEWER/PA/Advanced Practice Nurse/Resident Physician. I agree with the documented findings, disposition and treatment plan as described except to the extent set forth below. Patient seen and examined at bedside Labs, radiology, chart personally reviewed. All lines examined without evidence of infection. 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 minimal sedation for vent and is very agitated off ot this and threat to self extubation -much more call with Sister (guardian) at bedside. He is able to nod head to simple commands Pulm: acceptable Oxygenation/ventilation on vent today (minimal support). SBT when guardian at room to decrease agitated. Cards: MAP > 60 cont to monitor FEN-GI:GI prophylaxis given. transaminitis improving; cont enteral nutrition Renal:: worsening STEPAHNIE multifactorial including high VANC trough and relative hypotensive may also have possibility of venous congestion doubt he is intravascular depleted stop fluids. renal U/S pending. consider renal consult based upon clinical course and we will dose all medications for GFR. ID: sepsis s/t presumed cellulitis. on appropriate ABx. ID following Heme/Onc: DVT prophylaxis given Endo: glucose monitored Integ/MSK: b/l stasis dermatitis/cellulitis. cont skin care per ICU protocol CODE: Full. <Barron Husain - Last Filed: 08/14/16 15:00> Date of Encounter: 08/14/16 Time of Encounter: 07:40 Assessment and Plan (1) Acute on chronic respiratory failure with hypoxemia Current Visit: Yes Status: Acute patient intubated due to hypoxemia and hypercapnia likely secondary to chronic respiratory failure secondary to cor pulmonale and OHS as well as pulmonary edema/vascular congestion - prior ECHO 05/25/2016 sub-optimal, LV grossly normal, systolic normal, severe pulm HTN RVSP 75 mmHg - ECHO 08/08/2015 EF 55% with mild pulm HTN RVSP 42 mmHg no episodes of desaturation overnight CXR today 08/14 does not reveal any significant changes currently Day 7 of Vanc and Zosyn sputum culture sent, preliminary GNR, will await final results current vent settings 14/450/30%/5 PEEP - peak pressures high at upper 30s-lower 40s - ABG 7.35/44/105/24.3/25.7/98/-1.4 expiratory wheezes on exam scheduled duonebs, symbicort added failed CPAP yesterday will attempt another today and possible extubation (2) Acute on chronic respiratory failure with hypercapnia Current Visit: Yes Status: Acute improving, acute on chronic hypercapnia noncompliant with BiPAP prior to intubation plan as above (3) Sepsis Current Visit: Yes Status: Resolved resolved, does not meed SIRS criteria - leukocytosis resolved to 9.3 (9.3) - remains afebrile with HR stable 60-70s MRSA wound culture blood cultures NGTD x2 sputum culture preliminary positive GNR PICC placed for jail antibiotics on Day 7 of antibiotics, Vancomycin and Zosyn - ID recommended discontinuation of Meropenem on day 3 and Zosyn was started - pharmacy to dose Vancomycin, trough remains elevated 37.5 - renal function continues to worsen 2.08 (1.81) - awaiting sputum culture results before any changes to antibiotic regimen lactate was normal 1.1 Qualifiers: Sepsis type: sepsis due to unspecified organism Qualified Code(s): A41.9 - Sepsis, unspecified organism (4) STEPHANIE (acute kidney injury) Current Visit: Yes Status: Resolved continues to worsen, Cr 2.08 (1.81) secondary to sepsis, prerenal and possible medications - FENa is calculated 0.7% with urine sodium <20 and urine Cr 46 - likely multifactorial due to Vanc and Zosyn - Vanc trough remains elevated 37.5 - pharmacy to dose Vanc making urine but minimal UOP, 475 cc UOP over last 24 hours awaiting renal ultrasound will continue to monitor (5) Cardiopulmonary arrest with successful resuscitation Current Visit: Yes Status: Resolved cardiac arrest s/p intubation 08/10 patient vomitied --> bradycardia --> asystole successful resuscitation after 2 rounds of CPR and 1 EPI before ROSC continue to monitor neurologic and cardiopulmonary status currently on sedation and slowly wean to assess neurologic function when respiratory status improves (6) Cellulitis Current Visit: No Status: Acute cellulitic changes to bilateral lower extremity chronic venous stasis MRSA positive wound day 7 of antibiotics, Vancomycin and Zosyn contact precautions continue wound care L knee x-ray shows no joint effusion Infectious Disease and Wound Care/Podiatry have been consulted, recommendations appreciated Qualifiers: Site of cellulitis: extremity Site of cellulitis of extremity: lower extremity Laterality: unspecified laterality Qualified Code(s): L03.119 - Cellulitis of unspecified part of limb (7) Chronic wound of extremity Current Visit: No Status: Chronic continue wound care Infectious Disease and Podiatry/Wound Care has been consulted (8) Infected stasis ulcer of left lower extremity Current Visit: No Status: Acute plan as above (9) Hypotension Current Visit: Yes Status: Acute continues to have SBP <90 but MAP >65 350 cc UOP and elevated Cr placed on maintenance of 75 mL/hr recent CXR 08/12 suggestive of pulmonary edema and history of diastolic heart failure and cor pulmonale but on exam lungs with mild expiratory wheezes without rales or crackles will monitor fluid status Qualifiers: Hypotension type: hypotension due to drug Qualified Code(s): I95.2 - Hypotension due to drugs (10) Transaminitis Current Visit: Yes Status: Acute significantly improved and continues to downtrend - AST 70 (107) - ALT 252 (377) no evidence of jaundice or scleral icterus GI consulted and recommendations appreciated unclear etiology, consider possible shock liver EBV positive antibodies APAP level is <1 continue to hold Tylenol or any hepatic toxic medicationsno evidence of shock liver negative hepatitis panel no abnormalities on the liver ultrasound, however, limited due to patient comfort (11) Leukocytosis Current Visit: Yes Status: Resolved resolved patient remains afebrile will continue to monitor Qualifiers: Leukocytosis type: unspecified Qualified Code(s): D72.829 - Elevated white blood cell count, unspecified (12) Morbid obesity with BMI of 50.0-59.9, adult Current Visit: Yes Status: Chronic Nutrition consulted - tube feeds at 65 with 200 free water GI prophylaxis with IV Protonix (13) Difficulty with insertion of urinary catheter Current Visit: Yes Status: Acute Urology consulted and much appreciated 14F catheter was placed (14) Difficult intravenous access Current Visit: Yes Status: Acute EPIV in right shoulder and PICC in right basilic (15) Chronic anemia Current Visit: Yes Status: Chronic likely anemia of chronic disease remains stable at 9.3 (9.3) required transfusion Hgb as low as 3.4 in the past 01/07/2016 (16) Goals of care, counseling/discussion Current Visit: Yes Status: Acute sister Kerri BENAVIDES discussed recent events and long-term goals of care, wish for FULL CODE plan for CPAP trial later today (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 (18) DVT prophylaxis Current Visit: No Status: Acute heparin subq for 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 3 Fentanyl 35, no acute distress, opens eyes to voice and follows simple commands Cardio: relatively stable, BPs stable with MAPs maintained >60, discontinued maintenance fluid, CXR did not show any acute changes Pulm: lungs with bilateral expiratory wheezes, scheduled duonebs, acceptable ventilation and oxygenation, CPAP trial when sister present GI: tube feeds at goal, GI prophylaxis Heme: DVT prophylaxis, Heparin SQ ID: cellulitis of chronic venous stasis ulcers, ID on board, wound culture + MRSA on Vanc, awaiting sputum culture results prelim GNR Renal: worsening UOP, elevated Cr, minimal UOP, awaiting renal ultrasound Endo: blood glucose monitored Lines: PICC, all lines checked and no evidence of infections Skin: skin care per nursing routine care, wound care for LE Lytes: continue to monitor and replete PRN Subjective Principal diagnosis: Respiratory failure, sepsis, cellulitis Interval history: No major events overnight. He did not have any event alarms or episodes of desaturation overnight. Yesterday he failed his CPAP trial. He continues to make minimal urine. Patient was seen and examined at bedside. He continues to be intubated on technical administrator sedation. Does not appear to be in any acute distress. He opens his eyes to voice and follows simple commands. No family is at bedside. Objective PUL Vital signs: Last Vital Signs Temp 97.6 F 08/14/16 07:25 Pulse 58 08/14/16 07:25 Resp 14 08/14/16 07:25 BP 96/57 08/14/16 07:25 Pulse Ox 97 08/14/16 07:25 General appearance: no acute distress (sedated), other (morbidly obese with phenotypic female features, opens eyes to voice) Eyes: nonicteric, other (PERRL) ENT: other (endotraceal tube, OG in place) Effort: other (mechanical ventilation) Auscultation: bilateral: wheezes (expiratory) Cardiovascular: regular rate and rhythm Gastrointestinal: hypoactive bowel sounds, soft, non-tender, non-distended Integumentary: erythema (blanchable), cellulitis, decubitus ulcer (chronic venous stasis ulcers to bilateral LE with cellulitic changes, L leg ankle to lower 1/3 thigh, R leg ankle to knee; diffuse excoriations visualized to bilateral LE; no joint effusion appreciated, no crepitus, erythema or induration above the knee or in the groin/perineal area) Extremities: edema, anasarca, other (difficult to palpate pulses due to edema and body habitus, wounds are malodorous and weeping located on bilateral legs, oval wound to the mid right anterior singh, oval wound to the lateral lower right leg, stellate wound to the left lower leg that is circumferential, there is good granulation tissue) non-focal exam, pupils equal and round, unable to assess due to mental status EPIV in basilic right upper arm PICC in the right upper arm Ventilator Settings Ventilator Settings: Ventilator Settings, Last 8 Hours Ventilator Mode A/C Ventilator Mode A/C Ventilator Mode A/C Ventilator Mode A/C Ventilator Mode A/C Ventilator Mode A/C Ventilator Mode A/C Ventilator Mode A/C Ventilator Mode A/C Ventilator Mode A/C Ventilator Mode A/C Ventilator Mode A/C Ventilator Tidal Volume 450 Setting Ventilator Tidal Volume 450 Setting Ventilator Tidal Volume 450 Setting Ventilator Tidal Volume 450 Setting Ventilator Tidal Volume 450 Setting Ventilator Tidal Volume 450 Setting Ventilator Tidal Volume 450 Setting Ventilator Tidal Volume 450 Setting Ventilator Tidal Volume 450 Setting Ventilator Tidal Volume 450 Setting Ventilator Tidal Volume 450 Setting Ventilator Tidal Volume 450 Setting Ventilator Respiratory Rate 14 Setting Ventilator Respiratory Rate 14 Setting Ventilator Respiratory Rate 14 Setting Ventilator Respiratory Rate 14 Setting Ventilator Respiratory Rate 14 Setting Ventilator Respiratory Rate 14 Setting Ventilator Respiratory Rate 14 Setting Ventilator Respiratory Rate 14 Setting Ventilator Respiratory Rate 14 Setting Ventilator Respiratory Rate 14 Setting Ventilator Respiratory Rate 14 Setting Ventilator Respiratory Rate 14 Setting Actual Respiratory Rate 15 Actual Respiratory Rate 14 Actual Respiratory Rate 14 Actual Respiratory Rate 14 Actual Respiratory Rate 14 Actual Respiratory Rate 14 Actual Respiratory Rate 14 Actual Respiratory Rate 14 Actual Respiratory Rate 14 Actual Respiratory Rate 14 Actual Respiratory Rate 14 Positive End Expiratory 5 Pressure Positive End Expiratory 5 Pressure Positive End Expiratory 5 Pressure Positive End Expiratory 5 Pressure Positive End Expiratory 5 Pressure Positive End Expiratory 5 Pressure Positive End Expiratory 5 Pressure Positive End Expiratory 5 Pressure Positive End Expiratory 5 Pressure Positive End Expiratory 5 Pressure Positive End Expiratory 5 Pressure Positive End Expiratory 5 Pressure Peak Inspiratory Airway 47 Pressure Peak Inspiratory Airway 47 Pressure Peak Inspiratory Airway 46 Pressure Peak Inspiratory Airway 43 Pressure Peak Inspiratory Airway 42 Pressure Peak Inspiratory Airway 42 Pressure Peak Inspiratory Airway 46 Pressure Peak Inspiratory Airway 42 Pressure Peak Inspiratory Airway 42 Pressure Peak Inspiratory Airway 40 Pressure Peak Inspiratory Airway 38 Pressure Results - Laboratory Findings CBC and BMP: 08/14/16 04:00 08/14/16 04:00 ABG ABG pH 7.35 pH Units (7.32-7.45) 08/14/16 04:40 ABG pCO2 44 mmHg (35-45) 08/14/16 04:40 ABG pO2 105 mmHg (85-104) H 08/14/16 04:40 ABG O2 Saturation 98 % (95-98) 08/14/16 04:40 PT/INR, D-dimer PT 14.0 Seconds (9.4-12.1) H 08/08/16 21:17 Abnormal lab findings: Abnormal lab results RBC 3.79 M/mcL (4.19-5.50) L 08/14/16 04:00 Hgb 9.6 g/dL (12.9-16.9) L 08/14/16 04:00 Hct 32.8 % (37.5-50.1) L 08/14/16 04:00 MCH 25.3 pg (28.0-33.3) L 08/14/16 04:00 MCHC 29.3 g/dL (31.6-35.5) L 08/14/16 04:00 RDW 16.2 % (11.5-14.5) H 08/14/16 04:00 Eosinophils # 0.9 K/mcL (0.0-0.6) H 08/14/16 04:00 Nucleated RBCs/100 WBC 0.2 /100 WBC (0) H 08/09/16 11:27 Large Platelets Present (Not Present) A 08/13/16 03:32 Polychromasia 1+ (Not Present) A 08/13/16 03:32 Hypochromasia Present (Not Present) A 08/13/16 03:32 Poikilocytosis 1+ (Not Present) A 08/13/16 03:32 Anisocytosis 1+ (Not Present) A 08/08/16 13:55 Microcytosis Present (Not Present) A 08/13/16 03:32 Ovalocytes 1+ (Not Present) A 08/13/16 03:32 PT 14.0 Seconds (9.4-12.1) H 08/08/16 21:17 ABG pO2 105 mmHg (85-104) H 08/14/16 04:40 BUN 59 mg/dL (8-26) H 08/14/16 04:00 Creatinine 2.08 mg/dL (0.72-1.25) H 08/14/16 04:00 Est GFR ( Amer) 42 (> 60) L 08/14/16 04:00 Est GFR (Non-Af Amer) 35 (> 60) L 08/14/16 04:00 BUN/Creatinine Ratio 28 (6-26) H 08/14/16 04:00 Calculated Osmolality 302 (280-300) H 08/14/16 04:00 Calcium 7.9 mg/dL (8.6-10.8) L 08/14/16 04:00 Ionized Calcium 0.98 mmol/L (1.15-1.35) L 08/14/16 05:20 Phosphorus 6.5 mg/dL (2.3-4.7) H 08/14/16 05:20 AST 70 Units/L (5-34) H 08/14/16 04:00 ALT 252 Units/L (0-55) H 08/14/16 04:00 Alkaline Phosphatase 152 Units/L (38-126) H 08/14/16 04:00 Serum Total Protein 5.8 g/dL (6.0-8.3) L 08/14/16 04:00 Albumin 1.9 g/dL (3.5-5.0) L 08/14/16 04:00 Globulin 3.9 g/dL (2.4-3.5) H 08/14/16 04:00 Albumin/Globulin Ratio 0.5 (1.1-2.2) L 08/14/16 04:00 Prealbumin 8.0 mg/dL (18.0-45.0) L 08/14/16 04:00 Ur Specimen Adequacy See below A 08/12/16 01:40 Urine Clarity Cloudy (Clear) A 08/13/16 22:00 Urine Protein 100 mg/dL (Neg-Trace) H 08/13/16 22:00 Urine Blood Moderate (Negative) H 08/13/16 22:00 Ur Leukocyte Esterase Moderate (Negative) H 08/13/16 22:00 Urine Microscopic RBC 5-15 per hpf (0-3) H 08/13/16 22:00 Urine Microscopic WBC TNTC per hpf (0-3) H 08/13/16 22:00 Ur Squamous Epith Cells Many per lpf (None-Few) H 08/13/16 22:00 Urine Yeast Few per hpf (None Seen) H 08/13/16 22:00 Ur Culture Indicated? YES (NO) A 08/13/16 22:00 Vancomycin Trough 37.5 mcg/mL (10-20) H* 08/12/16 15:10 Acetaminophen < 1.0 mcg/mL (10-30) L 08/11/16 14:55 EBV Capsid Ag IgG Ab >750.0 U/mL (0.0-21.9) H 08/09/16 11:27 EBV Nuclear Ag Ab Titer 245.0 U/mL (0.0-21.9) H 08/09/16 11:27 - Microbiology Findings Microbiology Findings: Microbiology, Last 48 Hours 08/13/16 10:30 Sputum Culture - Preliminary Sputum Gram Negative Lavell 08/12/16 01:40 Urine Culture - Final Urine,Clean Catch No growth. 08/09/16 18:24 Wound Culture - Final Other-Specify in Comments Methicillin Resistant S.aureus - Diagnostic Findings Chest x-ray: report reviewed, image reviewed - Clinical Findings Intake & Output: Intake & Output 08/13/16 08/13/16 08/14/16 15:59 23:59 07:59 Intake Total 1100 / 1100 2246 / 2246 1293 / 1293 Output Total 125 / 125 200 / 200 150 / 150 Balance 975 / 975 2045 / 2045 1143 / 1143 Weight 111 kg
[2016-08-14] MEDS: Budesonide/Formoterol 160/4.5 MDI IH SCH ×2 (09:17→21:28)
[2016-08-14] MEDS: Pantoprazole 40 MG VIAL IVP SCH (09:36)
[2016-08-14] MEDS: Folic Acid 1 MG TABLET PO SCH (09:36)
[2016-08-14] MEDS: Chlorhexidine Rinse 15 ML MOUTHWASH MM SCH ×2 (09:36→20:08)
--- NOTE | 2016-08-14 11:01 | Infectious Disease Progress No ---
Date of Encounter: 08/14/16 Time of Encounter: 10:59 - Assessment and Plan (1) Sepsis Current Visit: Yes Status: Resolved The patient had fever with Tmax of 102,tachycardia, leukocytosis. The patient also had hypotension, but this is likely secondary to propofol. Resolved. The patient has been afebrile since initial fever. Tachycardia and hypotension have resolved. Blood cultures drawn 08/08/16 are negative x 2 sets. Qualifiers: Sepsis type: sepsis due to unspecified organism Qualified Code(s): A41.9 - Sepsis, unspecified organism (2) Leukocytosis Current Visit: Yes Status: Resolved WBC elevated at 15 thousand with 12% monocytes on admission. Likely secondary to lower extremity cellulitis. Resolved. Qualifiers: Leukocytosis type: unspecified Qualified Code(s): D72.829 - Elevated white blood cell count, unspecified (3) Cellulitis Current Visit: No Status: Acute Location: Left knee. Although there is marked erythema to the BLE, I do not believe this is cellulitis, but likely more related to venous stasis. I do believe there are some cellulitic skin changes overlying the left knee, which have markedly improved. Causative organism MRSA per wound culture, but we need to consider polymicrobial infection as well. Likely secondary to venous stasis ulcers. Left knee x-ray completed shows no joint effusion. Blood cultures drawn 08/08/16 in the ED are negative x 2 sets. Podiatry consulted for wound care recommendations. Continue Vancomycin IV (day 7). Pharmacy to dose. Goal trough approximately 15. Continue Zosyn 3.375 grams IV Q8H (day 5). Treated with 2 days prior of IV Meropenem as well. Will likely de-escalate soon. Duration of treatment depends on the clinical picture. May consider discontinuing IV Vancomycin soon. Monitor renal function and for drug toxicity and dose-adjust antibiotics. Qualifiers: Site of cellulitis: extremity Site of cellulitis of extremity: lower extremity Laterality: unspecified laterality Qualified Code(s): L03.119 - Cellulitis of unspecified part of limb (4) Acute on chronic respiratory failure with hypoxemia Current Visit: Yes Status: Acute Etiology unclear --> PNA vs. fluid overload. Currently intubated and sedated. Sputum culture shows GNR. Await final ID and sensitivity. The patient did have episode of emesis during intubation with likely aspiration. Continue O2 and supportive care as outlined by the pulmonology team. Continue antibiotics as outline above. (5) Cardiopulmonary arrest with successful resuscitation Current Visit: Yes Status: Resolved 08/10/16. Likely secondary to hypoxia. Received 2 rounds of CPR and ACLS drugs before ROSC. (6) Ulcers of both lower legs Current Visit: No Status: Acute Likely secondary to venous stasis. Several large venous stasis ulcers noted to the lower portion of the bilateral lower extremities. Clinically, they do not appear infected. There is no foul odor at this time. Podiatry and wound care consulted for wound care recommendations. Consider transfer to tertiary [facility] for aggressive wound care and plastic surgery consultation. (7) STEPHANIE (acute kidney injury) Current Visit: Yes Status: Resolved Serum creatinine initially elevated on admission, but resolved. New STEPHANIE onset two days ago. Likely secondary to vanc toxicity. Vanc currently on hold and patient being monitored by the pharmacy team. Serum creatinine worse today 1.44>1.81>2.08. Consider nephrology consult. Monitor closely and dose-adjust antibiotics. (8) Transaminitis Current Visit: Yes Status: Acute Improved. Levels are trending down. Abdominal UTS negative. Hepatitis profile negative. EBV antibodies positive. GI consulted. 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 Weekend notes reviewed. No acute events noted. Patient remains intubated and sedated on the ventilator. History received from nursing. No family at the bedside. No new issues notes. Patient arousable to verbal stimuli. Infect Dis PN-Objective Data - Labs CBC & Chem 7: 08/15/16 03:37 08/15/16 03:37 Labs: Laboratory Results - last 24 hr 08/13/16 08/13/16 08/14/16 12:44 22:00 00:08 WBC RBC Hgb Hct MCV MCH MCHC RDW Plt Count MPV Immature Gran % Seg Neutrophils % Lymphocytes % Monocytes % Eosinophils % Basophils % Neutrophils # Lymphocytes # Monocytes # Eosinophils # Basophils # ABG pH ABG pCO2 ABG pO2 ABG HCO3 ABG Total CO2 ABG O2 Saturation ABG Base Excess Blood Gas Modality Inspired O2 Sodium Potassium Chloride Carbon Dioxide BUN Creatinine Est GFR ( Amer) Est GFR (Non-Af Amer) BUN/Creatinine Ratio Glucose POC Glucose 94 H 69 Calculated Osmolality Calcium Ionized Calcium Phosphorus Magnesium Total Bilirubin AST ALT Alkaline Phosphatase Serum Total Protein Albumin Globulin Albumin/Globulin Ratio Prealbumin Urine Color Yellow Urine Clarity Cloudy A Urine pH 6.0 Ur Specific [place] 1.023 Urine Protein 100 H Urine Glucose (UA) Normal Urine Ketones Negative Urine Blood Moderate H Urine Nitrite Negative Urine Bilirubin Negative Urine Urobilinogen Normal Ur Leukocyte Esterase Moderate H Urine Microscopic RBC 5-15 H Urine Microscopic WBC TNTC H Ur Squamous Epith Cells Many H Urine Bacteria None Seen Hyaline Casts Few Urine Yeast Few H Ur Culture Indicated? YES A Urine Creatinine Urine Sodium 08/14/16 08/14/16 08/14/16 04:00 04:00 04:00 WBC 9.3 RBC 3.79 L Hgb 9.6 L Hct 32.8 L MCV 86.5 MCH 25.3 L MCHC 29.3 L RDW 16.2 H Plt Count 202 MPV 10.0 Immature Gran % 1.0 Seg Neutrophils % 61.9 Lymphocytes % 14.4 Monocytes % 12.5 Eosinophils % 9.7 Basophils % 0.5 Neutrophils # 5.8 Lymphocytes # 1.3 Monocytes # 1.2 Eosinophils # 0.9 H Basophils # 0.1 ABG pH ABG pCO2 ABG pO2 ABG HCO3 ABG Total CO2 ABG O2 Saturation ABG Base Excess Blood Gas Modality Inspired O2 Sodium 138 Potassium 4.3 Chloride 103 Carbon Dioxide 23 BUN 59 H Creatinine 2.08 H Est GFR ( Amer) 42 L Est GFR (Non-Af Amer) 35 L BUN/Creatinine Ratio 28 H Glucose 90 POC Glucose Calculated Osmolality 302 H Calcium 7.9 L Ionized Calcium Phosphorus Magnesium 2.5 Total Bilirubin 0.3 AST 70 H ALT 252 H Alkaline Phosphatase 152 H Serum Total Protein 5.8 L Albumin 1.9 L Globulin 3.9 H Albumin/Globulin Ratio 0.5 L Prealbumin 8.0 L Urine Color Urine Clarity Urine pH Ur Specific [place] Urine Protein Urine Glucose (UA) Urine Ketones Urine Blood Urine Nitrite Urine Bilirubin Urine Urobilinogen Ur Leukocyte Esterase Urine Microscopic RBC Urine Microscopic WBC Ur Squamous Epith Cells Urine Bacteria Hyaline Casts Urine Yeast Ur Culture Indicated? Urine Creatinine Urine Sodium 08/14/16 08/14/16 08/14/16 04:03 04:40 05:20 WBC RBC Hgb Hct MCV MCH MCHC RDW Plt Count MPV Immature Gran % Seg Neutrophils % Lymphocytes % Monocytes % Eosinophils % Basophils % Neutrophils # Lymphocytes # Monocytes # Eosinophils # Basophils # ABG pH 7.35 ABG pCO2 44 ABG pO2 105 H ABG HCO3 24.3 ABG Total CO2 25.7 ABG O2 Saturation 98 ABG Base Excess -1.4 Blood Gas Modality ASSIST CONTROL Inspired O2 30 Sodium Potassium Chloride Carbon Dioxide BUN Creatinine Est GFR ( Amer) Est GFR (Non-Af Amer) BUN/Creatinine Ratio Glucose POC Glucose Calculated Osmolality Calcium Ionized Calcium 0.98 L Phosphorus 6.5 H Magnesium Total Bilirubin AST ALT Alkaline Phosphatase Serum Total Protein Albumin Globulin Albumin/Globulin Ratio Prealbumin Urine Color Urine Clarity Urine pH Ur Specific [place] Urine Protein Urine Glucose (UA) Urine Ketones Urine Blood Urine Nitrite Urine Bilirubin Urine Urobilinogen Ur Leukocyte Esterase Urine Microscopic RBC Urine Microscopic WBC Ur Squamous Epith Cells Urine Bacteria Hyaline Casts Urine Yeast Ur Culture Indicated? Urine Creatinine 46 Urine Sodium < 20.0 Cultures: Cultures 08/13/16 10:30 Sputum Culture - Preliminary Sputum Gram Negative Lavell 08/12/16 01:40 Urine Culture - Final Urine,Clean Catch No growth. 08/09/16 18:24 Wound Culture - Final Other-Specify in Comments Methicillin Resistant S.aureus Serology 08/14/16 08/13/16 08/12/16 Range/Units 04:03 22:00 01:40 Ur Specimen Adequacy See below A Urine Color Yellow Yellow (Yellow) Urine Clarity Cloudy A Cloudy A (Clear) Urine pH 6.0 6.0 (5.0-8.0) pH Units Ur Specific [place] 1.023 1.023 (1.010-1.025) Urine Protein 100 H 30 H (Neg-Trace) mg/dL Urine Glucose (UA) Normal Normal (Normal) mg/dL Urine Ketones Negative Negative (Negative) mg/dL Urine Blood Moderate H Small H (Negative) Urine Nitrite Negative Negative (Negative) Urine Bilirubin Negative Negative (Negative) Urine Urobilinogen Normal Normal (Normal) mg/dL Ur Leukocyte Esterase Moderate H Moderate H (Negative) Urine Microscopic RBC 5-15 H 3-5 H (0-3) per hpf Urine Microscopic WBC TNTC H 15-30 H (0-3) per hpf Ur Squamous Epith Cells Many H Many H (None-Few) per lpf Urine Bacteria None Seen Few (None-Few) per hpf Hyaline Casts Few None Seen (None-Few) per lpf Urine Yeast Few H Few H (None Seen) per hpf Ur Culture Indicated? YES A YES A (NO) Urine Creatinine 46 mg/dL Urine Sodium < 20.0 mEq/L EBV Capsid Ag IgG Ab (0.0-21.9) U/mL EBV Capsid Ag IgM Ab (0.0-43.9) U/mL EBV Early Antigen IgG (0.0-10.9) U/mL EBV Nuclear Ag Ab Titer (0.0-21.9) U/mL Hepatitis A IgM Ab (Nonreactive) Hep Bs Antigen (Nonreactive) Hep B Core IgM Ab (Nonreactive) Hepatitis C Ab Screen (Nonreactive) 08/09/16 08/08/16 Range/Units 11:27 20:11 Ur Specimen Adequacy Urine Color (Yellow) Urine Clarity (Clear) Urine pH (5.0-8.0) pH Units Ur Specific [place] (1.010-1.025) Urine Protein (Neg-Trace) mg/dL Urine Glucose (UA) (Normal) mg/dL Urine Ketones (Negative) mg/dL Urine Blood (Negative) Urine Nitrite (Negative) Urine Bilirubin (Negative) Urine Urobilinogen (Normal) mg/dL Ur Leukocyte Esterase (Negative) Urine Microscopic RBC (0-3) per hpf Urine Microscopic WBC (0-3) per hpf Ur Squamous Epith Cells (None-Few) per lpf Urine Bacteria (None-Few) per hpf Hyaline Casts (None-Few) per lpf Urine Yeast (None Seen) per hpf Ur Culture Indicated? (NO) Urine Creatinine mg/dL Urine Sodium mEq/L EBV Capsid Ag IgG Ab >750.0 H (0.0-21.9) U/mL EBV Capsid Ag IgM Ab <10.0 (0.0-43.9) U/mL EBV Early Antigen IgG <5.0 (0.0-10.9) U/mL EBV Nuclear Ag Ab Titer 245.0 H (0.0-21.9) U/mL Hepatitis A IgM Ab Nonreactive (Nonreactive) Hep Bs Antigen Nonreactive (Nonreactive) Hep B Core IgM Ab Nonreactive (Nonreactive) Hepatitis C Ab Screen Nonreactive (Nonreactive) - Impressions Impressions Chest X-Ray 08/14/16 04:00 IMPRESSION: Stable chest with pulmonary edema/CHF. D/ / Avril Ceja MD / Avril Ceja MD Interpreting Provider: Avril Ceja MD Exam - Constitutional Vitals: Temp Pulse Resp BP Pulse Ox 97.6 F 56 14 115/85 96 08/14/16 07:25 08/14/16 09:33 08/14/16 09:33 08/14/16 09:33 08/14/16 09:33 General appearance: morbidly obese, no acute distress, no febrile - Head Head exam: Present: atraumatic, normal inspection, normocephalic - Eye Eye exam: Present: normal appearance Pupils: Present: normal accommodation, PERRL - ENT ENT exam: Present: mucous membranes moist - Neck Neck exam: Present: normal inspection - Respiratory Respiratory exam: Present: rhonchi (Throughout). Absent: rales, wheezes Additional comments: Remains intubated. O2 via the ventilator. - Cardiovascular Cardiovascular exam: Present: RRR, +S1, +S2 - GI/Abdominal GI/Abdominal exam: Present: distended (obese), firm, normal bowel sounds. Absent: tenderness Additional comments: Edwards catheter noted to be draining clear yellow urine. OG tube with tube feeds infusing. - Extremities Exam Extremities exam: Present: pedal edema (1+ right foot. Trace left foot) Additional comments: BLE dressing C/D/I. Erythema overlying the left knee markedly improved. - Neurological Exam Neurological exam: Present: altered (Sedated, arouses to verbal stimuli. ). Absent: facial droop - Skin Skin exam: Present: dry, intact, normal color, warm Consult Discharge Plan - Plan Referrals: NO,PCP [Primary Care Provider] - - Attending Attestation I examined this patient and my medical decision-making was reviewed with the REHABILITATION ATTENDANT/PA/Advanced Practice Nurse/Resident Physician. I agree with the documented findings, disposition and treatment plan as described except to the extent set forth below. continues to be on Vent support. d/w resident physicians on the case. continue vancomycin/zosyn for now.
[2016-08-14] MEDS: Nystatin POWDER 30 GM BOTTLE TP SCH ×2 (14:54→20:08)
[2016-08-14] MEDS: Gentamicin Oint 15 GM TUBE TP SCH ×2 (18:03→19:54)
[2016-08-14 22:23] LABS: Calcium 7.7 mg/dL (8.6-10.8); Potassium 4.3 mEq/L (3.5-4.5)
[2016-08-15 04:03] LABS: Basophils % 0.5 %; Eosinophils # 0.8 K/mcL (0.0-0.6); Eosinophils % 9.2 %; Hematocrit 31.9 % (37.5-50.1); Hemoglobin 9.4 g/dL (12.9-16.9); Immature Granulocytes % 1.2 % (0-4); Lymphocytes # 1.2 K/mcL (0.6-4.6); Lymphocytes % 14.3 %; Mean Corpuscular HGB Conc 29.5 g/dL (31.6-35.5); Mean Corpuscular Hemoglobin 25.2 pg (28.0-33.3); Mean Corpuscular Volume 85.5 fL (83.0-100.0); Monocytes # 1.1 K/mcL (0.0-1.3); Monocytes % 13.1 %; Neutrophils # 5.1 K/mcL (1.6-8.9); Platelet Count 215 K/mcL (140-400); Red Blood Count 3.73 M/mcL (4.19-5.50); Red Cell Distribution Width 16.1 % (11.5-14.5); Segmented Neutrophils % 61.7 %
[2016-08-15 04:15] LABS: Albumin 1.9 g/dL (3.5-5.0); Albumin/Globulin Ratio 0.5 (1.1-2.2); Bilirubin,Total 0.3 mg/dL (0.2-1.2); Globulin 4.1 g/dL (2.4-3.5); Potassium 4.1 mEq/L (3.5-4.5)
[2016-08-15] MEDS: Ipratropium/Albuterol Neb 3 ML IH SCH ×4 (04:37→22:14)
[2016-08-15 04:42] LABS: ABG Base Excess -0.4 mEq/L (-2.0 to 3.0); ABG HCO3 26.6 mEQ/L (21-27); ABG Oxygen Saturation 97 % (95-98); ABG PCO2 54 mmHg (35-45); ABG PO2 96 mmHg (85-104); ABG TCO2 28.3 mEq/L (20-26)
[2016-08-15 04:47] LABS: Blood Gas FiO2 30 %
[2016-08-15] MEDS: FentaNYL (PF) 1,000 MCG in 0.9 % Sodium Chloride 80 ML IVC SCH (04:53)
[2016-08-15] MEDS: Lacri-Lube 3.5 GM TUBE BOTH EYES SCH ×6 (04:53→23:59)
[2016-08-15] MEDS: Chlorhexidine Rinse 15 ML MOUTHWASH MM SCH ×2 (07:57→20:37)
[2016-08-15] MEDS: *HR* Heparin 5,000 UNIT/ML VIAL SQ SCH ×3 (07:57→23:58)
[2016-08-15] MEDS: Piperacillin/Tazobactam 3.375 GM in D5% in Water (Mini-Bag+) 100 ML IVPB SCH ×2 (07:57→15:31)
[2016-08-15] MEDS: Folic Acid 1 MG TABLET PO SCH (07:57)
[2016-08-15] MEDS: Nystatin POWDER 30 GM BOTTLE TP SCH ×2 (07:58→20:41)
[2016-08-15] MEDS: Pantoprazole 40 MG VIAL IVP SCH (07:58)
[2016-08-15] MEDS: Gentamicin Oint 15 GM TUBE TP SCH ×2 (07:59→20:37)
--- NOTE | 2016-08-15 08:34 | Pulmonology Progress Note ---
<MelanieMarissas W - Last Filed: 08/15/16 10:07> Date of Encounter: 08/15/16 Objective PUL Vital signs: Last Vital Signs Temp 97.5 F L 08/15/16 08:08 Pulse 52 08/15/16 07:49 Resp 16 08/15/16 07:49 BP 92/54 08/15/16 07:49 Pulse Ox 96 08/15/16 07:49 Ventilator Settings Ventilator Settings: Ventilator Settings, Last 8 Hours Ventilator Mode A/C Ventilator Mode A/C Ventilator Mode A/C Ventilator Mode A/C Ventilator Mode A/C Ventilator Mode A/C Ventilator Mode A/C Ventilator Mode A/C Ventilator Mode A/C Ventilator Mode A/C Ventilator Mode A/C Ventilator Tidal Volume 450 Setting Ventilator Tidal Volume 450 Setting Ventilator Tidal Volume 450 Setting Ventilator Tidal Volume 450 Setting Ventilator Tidal Volume 450 Setting Ventilator Tidal Volume 450 Setting Ventilator Tidal Volume 450 Setting Ventilator Tidal Volume 450 Setting Ventilator Tidal Volume 450 Setting Ventilator Tidal Volume 450 Setting Ventilator Tidal Volume 450 Setting Ventilator Respiratory Rate 16 Setting Ventilator Respiratory Rate 16 Setting Ventilator Respiratory Rate 16 Setting Ventilator Respiratory Rate 16 Setting Ventilator Respiratory Rate 14 Setting Ventilator Respiratory Rate 14 Setting Ventilator Respiratory Rate 14 Setting Ventilator Respiratory Rate 14 Setting Ventilator Respiratory Rate 14 Setting Ventilator Respiratory Rate 14 Setting Ventilator Respiratory Rate 14 Setting Actual Respiratory Rate 16 Actual Respiratory Rate 16 Actual Respiratory Rate 16 Actual Respiratory Rate 16 Actual Respiratory Rate 14 Actual Respiratory Rate 14 Actual Respiratory Rate 14 Actual Respiratory Rate 14 Actual Respiratory Rate 14 Actual Respiratory Rate 14 Positive End Expiratory 5 Pressure Positive End Expiratory 5 Pressure Positive End Expiratory 5 Pressure Positive End Expiratory 5 Pressure Positive End Expiratory 5 Pressure Positive End Expiratory 5 Pressure Positive End Expiratory 5 Pressure Positive End Expiratory 5 Pressure Positive End Expiratory 5 Pressure Positive End Expiratory 5 Pressure Positive End Expiratory 5 Pressure Peak Inspiratory Airway 40 Pressure Peak Inspiratory Airway 40 Pressure Peak Inspiratory Airway 46 Pressure Peak Inspiratory Airway 41 Pressure Peak Inspiratory Airway 44 Pressure Peak Inspiratory Airway 42 Pressure Peak Inspiratory Airway 40 Pressure Peak Inspiratory Airway 42 Pressure Peak Inspiratory Airway 58 Pressure Peak Inspiratory Airway 40 Pressure Results - Laboratory Findings CBC and BMP: 08/15/16 03:37 08/15/16 03:37 ABG ABG pH 7.30 pH Units (7.32-7.45) L 08/15/16 04:32 ABG pCO2 54 mmHg (35-45) H 08/15/16 04:32 ABG pO2 96 mmHg (85-104) 08/15/16 04:32 ABG O2 Saturation 97 % (95-98) 08/15/16 04:32 PT/INR, D-dimer PT 14.0 Seconds (9.4-12.1) H 08/08/16 21:17 Abnormal lab findings: Abnormal lab results RBC 3.73 M/mcL (4.19-5.50) L 08/15/16 03:37 Hgb 9.4 g/dL (12.9-16.9) L 08/15/16 03:37 Hct 31.9 % (37.5-50.1) L 08/15/16 03:37 MCH 25.2 pg (28.0-33.3) L 08/15/16 03:37 MCHC 29.5 g/dL (31.6-35.5) L 08/15/16 03:37 RDW 16.1 % (11.5-14.5) H 08/15/16 03:37 Eosinophils # 0.8 K/mcL (0.0-0.6) H 08/15/16 03:37 Nucleated RBCs/100 WBC 0.2 /100 WBC (0) H 08/09/16 11:27 Large Platelets Present (Not Present) A 08/13/16 03:32 Polychromasia 1+ (Not Present) A 08/13/16 03:32 Hypochromasia Present (Not Present) A 08/13/16 03:32 Poikilocytosis 1+ (Not Present) A 08/13/16 03:32 Anisocytosis 1+ (Not Present) A 08/08/16 13:55 Microcytosis Present (Not Present) A 08/13/16 03:32 Ovalocytes 1+ (Not Present) A 08/13/16 03:32 PT 14.0 Seconds (9.4-12.1) H 08/08/16 21:17 ABG pH 7.30 pH Units (7.32-7.45) L 08/15/16 04:32 ABG pCO2 54 mmHg (35-45) H 08/15/16 04:32 ABG Total CO2 28.3 mEq/L (20-26) H 08/15/16 04:32 BUN 67 mg/dL (8-26) H 08/15/16 03:37 Creatinine 2.24 mg/dL (0.72-1.25) H 08/15/16 03:37 Est GFR ( Amer) 38 (> 60) L 08/15/16 03:37 Est GFR (Non-Af Amer) 32 (> 60) L 08/15/16 03:37 BUN/Creatinine Ratio 30 (6-26) H 08/15/16 03:37 Glucose 117 mg/dL (70-99) H 08/15/16 03:37 POC Glucose 90 (58-89) H 08/14/16 23:36 Calculated Osmolality 304 (280-300) H 08/15/16 03:37 Calcium 8.0 mg/dL (8.6-10.8) L 08/15/16 03:37 Ionized Calcium 0.98 mmol/L (1.15-1.35) L 08/14/16 05:20 Phosphorus 6.5 mg/dL (2.3-4.7) H 08/14/16 05:20 AST 48 Units/L (5-34) H 08/15/16 03:37 ALT 181 Units/L (0-55) H 08/15/16 03:37 Alkaline Phosphatase 145 Units/L (38-126) H 08/15/16 03:37 Albumin 1.9 g/dL (3.5-5.0) L 08/15/16 03:37 Globulin 4.1 g/dL (2.4-3.5) H 08/15/16 03:37 Albumin/Globulin Ratio 0.5 (1.1-2.2) L 08/15/16 03:37 Prealbumin 8.0 mg/dL (18.0-45.0) L 08/14/16 04:00 Ur Specimen Adequacy See below A 08/12/16 01:40 Urine Clarity Cloudy (Clear) A 08/13/16 22:00 Urine Protein 100 mg/dL (Neg-Trace) H 08/13/16 22:00 Urine Blood Moderate (Negative) H 08/13/16 22:00 Ur Leukocyte Esterase Moderate (Negative) H 08/13/16 22:00 Urine Microscopic RBC 5-15 per hpf (0-3) H 08/13/16 22:00 Urine Microscopic WBC TNTC per hpf (0-3) H 08/13/16 22:00 Ur Squamous Epith Cells Many per lpf (None-Few) H 08/13/16 22:00 Urine Yeast Few per hpf (None Seen) H 08/13/16 22:00 Ur Culture Indicated? YES (NO) A 08/13/16 22:00 Vancomycin Trough 37.5 mcg/mL (10-20) H* 08/12/16 15:10 Acetaminophen < 1.0 mcg/mL (10-30) L 08/11/16 14:55 EBV Capsid Ag IgG Ab >750.0 U/mL (0.0-21.9) H 08/09/16 11:27 EBV Nuclear Ag Ab Titer 245.0 U/mL (0.0-21.9) H 08/09/16 11:27 - Microbiology Findings Microbiology Findings: Microbiology, Last 48 Hours 08/13/16 22:00 Urine Culture - Final Urine,Clean Catch No growth. 08/13/16 10:30 Sputum Culture - Preliminary Sputum Gram Negative Lavell 08/12/16 01:40 Urine Culture - Final Urine,Clean Catch No growth. - Clinical Findings Intake & Output: Intake & Output 08/14/16 08/15/16 08/15/16 23:59 07:59 15:59 Intake Total 1551 / 1551 300 / 300 493 / 493 Output Total 350 / 350 250 / 250 100 / 100 Balance 1201 / 1201 50 / 50 393 / 393 Weight 115.53 kg Consult Discharge Plan - Plan Referrals: NO,PCP [Primary Care Provider] - - Attending Attestation I examined this patient and my medical decision-making was reviewed with the LEAD SUSTAINABILITY SPECIALIST/PA/Advanced Practice Nurse/Resident Physician. I agree with the documented findings, disposition and treatment plan as described except to the extent set forth below. Patient seen and examined at bedside Labs, radiology, chart personally reviewed. All lines examined without evidence of infection. 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 minimal sedation for vent more call today. titrate sedation to JESSIE 2. cont daily sedation holiday. Encourage interaction with sister which has a calming effect and sleep wake cycle christian. Pulm: acceptable Oxygenation/ventilation on vent today (minimal support). SBT today terminated early for when sister at room to decrease agitated.. Does have a history of (possible) corpulmonale with JOHN/OHS. Cards: MAP > 60 but on lower side. s/p Cardiac Arrest ECHO today. cont to monitor FEN-GI:GI prophylaxis given.cont enteral nutrition. continues to have regular bowel movements. Renal:: worsening STEPHANIE multifactorial including high VANC trough and hypotension. Check Urine EOS today. renal U/S was unremarkable. consider cont diuresis today. dose all medications for GFR. BID electrolyte panel replace lytes per protocol ID: sepsis s/t presumed cellulitis. and possible GNR in sputum on appropriate ABx. ID following Heme/Onc: DVT prophylaxis given/ Stable chronic anemia. Endo: glucose monitored Integ/MSK: b/l stasis dermatitis/cellulitis. cont skin care per ICU protocol CODE: Full. sister updated at bedside. <Aaron Rocha - Last Filed: 08/15/16 11:42> Date of Encounter: 08/15/16 Time of Encounter: 06:30 Assessment and Plan (1) Acute and chronic respiratory failure Current Visit: Yes Status: Acute Multifactoria. Dinorah is volume overloaded, has severe pulmonary hypertension , likely cor pulmonale, marisela has a component of obesity hypoventilation, untreated JOHN ( would not tolerate Mask), and aspiration. patient failed spontaneous breathing trial this AM due to apnea. Plan: We will attempt spontaneous breathing trial. Apnea may have been to sedation. We will see if he improves off of sedation. He has had seven days of anaerobic overage for aspiration Pneumonia. May consider deescalating. We will follow up with IDs recommendation. Patient will need follow up as outpatient for his pulmonary hypertension, and JOHN. (2) Bacterial pneumonia Current Visit: Yes Status: Acute emesis noted during intubation. Concern for aspiration Pneumonia. Day seven of Anaerobic coverage ( recieved one day of meropenem prior to switching to Zosyn) Will consider stopping Zosyn if Ok with ID. (3) Sepsis Current Visit: Yes Status: Acute Patient no longer meets SIRS criteria. He is afebrile and has a normal WBC. Sources would include infection from chronic lower extremity wounds and aspiration pneumonia. Wound cultures from 08/09/16 have grown MRSA. Sputum cultures from 08/13/16 have grown GNR. I spoke with microbiology and we should have results tomorrow. Urine cultures from 08/12/16 show no growth. Blood cultures from 08/08/16 show NGTD. Currently on Vancomycin and Zosyn. Possible deescalation of Zosyn if OK with ID. Appreciate IDs recommendations. Appreciate Pharmacy's assistance with Vancomycin Dosing. (4) Chronic wound of extremity Current Visit: Yes Status: Acute Continue wound care. (5) Cellulitis Current Visit: Yes Status: Acute as stated above. (6) Anasarca Current Visit: Yes Status: Acute patient is volume overloaded. IV lasix ordered. (7) History of cardiac arrest Current Visit: Yes Status: Acute occurred following a difficult intubation. We will obtain an Echocardiogram (8) Prader-Willi syndrome Current Visit: Yes Status: Acute will need caloric restrictions when able to have a diet. (9) Morbid obesity Current Visit: Yes Status: Acute secondary to prader willi syndrome. advise weight loss (10) Acute kidney injury Current Visit: Yes Status: Acute FeNA 0.7 SCR rising mildly since yesterday. urine output improving. Etiology is likley multifactoria with Sepsis in the setting of elevated vancomycin trough. Check urine eosinophils ( has some peripheral eosinophilia) Will give a trial of lasix ( may be prerenal from decreased cardiac output from volume overload in the setting of right sided heart failure ( prior echo did show dilated RV). We will repeat BMP this after noon. Strict I's and Os (11) Iron deficiency anemia Current Visit: Yes Status: Acute Last ferritin was 18. ( may). Has had GI bleeding this year and also has chronic blood loss from lower extremity wounds. Will plan to add oral supplementation once he is able to tolerate a diet. (12) Elevated transaminase level Current Visit: Yes Status: Acute trending down. Likely from hypotension. EBV + but IgG antibodies so this is likely from prior exposure rather than an acute infection (13) Protein calorie malnutrition Current Visit: Yes Status: Acute biophysics teacher consulted. continue tube feeds. (14) Hypoalbuminemia Current Visit: Yes Status: Acute continue tube feeds (15) DVT prophylaxis Current Visit: Yes Status: Acute Neuro: Prader Willi syndrome. Currently sedated. Will plan to wean sedation. HEENT: No issues at this time. NG and ET tubes in place. Heart: Possible Cor pulmonale, pulmonary hypertention. Cardiac arrest this admission during difficult intubation. Volume overloaded. Possible Right sided heart failure given dilated RV seen on prior echocardiogram. We Will give lasix. Check an echoardiogram given his volume status and recent cardiac arrest. Pulm: Acute on chronic respiratory failure that is multifactorial from underlying pulmonary hypertension, pulmonary edema, untreated JOHN, and now aspiration pneumonia. He is meeting oxygenation goals on ventilator. Day seven on the vent. Continue antibiotics. Will attempt weaning trial today and possibly extubation. GI: NO issues at this time. Renal: STEPHANIE. Possibly from Heart failure vs. Vancomycin toxicity. May also consider interstitial nephritis with mildly elevated eosinophils. FeNA 0.7 Urine output 600 cc's yesterday. Will give a trial of lasix. check urine eosinophils. : Difficult velasquez placement. Appreciate Urology. MSK: Deconditioning? seven days on ventilator. Will need PT/OT post extubation. Heme: Iron deficiency anemia. Ferritin in [facility] was 18. Hold off on IV iron at this time with ongoing infecion but may benefit. can start PO supplementation. Mild eosinophilia. Likely insignificant. ID: Possible aspiration pneumonia. GNR in sputum. Spoke with Micro and should have ID tomorrow. Crhonic lower extremity wounds/ Cellulitis. Day 7 of vancomycin ( holding for high trough) day 6 of zosyn and had one day of meropenem on admission. Appreciate IDs recommendations. FEN: Volume overloaded. 15 L positive since admission. Give IV lasix. Concentrate IV medications if possible. No major electrolyte abnormalities. Continue tube feeds. No major electrolyte abnormalities today. Endocrine: No active issues at this time. Likely metabolic syndrome. Morbid obesity with BMI of 63. Advise weight loss but will be difficult in this patient with Prader Willi syndrome. Lines: Velasquez, ET, OG, PICC ( no signs of infection) Integument: continue wound care for lower extremities. Routine skin care. Candidiasis ( on nystatin powder) Prophylaxis: On heparin and Protonix Subjective Principal diagnosis: Respiratory failure, sepsis, cellulitis Interval history: No major events overnight. Patient is currently intubated and sedated. However he has been moving moving his limbs some. He is not following commands at this time. Objective PUL Vital signs: I have reviewed all vitals signs for the past 24 hours Last Vital Signs Temp 97.5 F L 08/15/16 08:08 Pulse 52 08/15/16 07:49 Resp 16 08/15/16 07:49 BP 92/54 08/15/16 07:49 Pulse Ox 96 08/15/16 07:49 Gen.: This is a morbidly obese 46-year-old male who is currently sedated but does wake slightly during the exam moves all limbs. Currently on mechanical ventilation. HEENT: Head is normocephalic and atraumatic. Minor skin abrasions on the forehead. Pupils are equally round and react to light. Anicteric sclera. There is a ET and OG tube in place. Neck is supple no mass palpable. Trachea midline. Heart: The heart sounds are distant which is likely secondary to habitus. No murmurs rubs or gallops. No JVD. Lungs: Lung sounds are distant. Minimal coarse breath sounds bilaterally. No wheezes no rales noted on exam. There is a normal rise and expansive the chest wall bilaterally. Abdomen: Obese, nondistended, bowel sounds are positive in all quadrants. Musculoskeletal: Grossly normal for age other than his short stature and small hands and feet which is typical Prader-Willi syndrome. No gross deformities noted. Extremities: No clubbing, cyanosis. He does have anasarca which does appear to be chronic does have some induration of the pannus. Integument: He does have the lower extremity chronic wounds which are all dressed with without shadowing to the dressing this morning. Does have some cutaneous candidiasis most notably in the left pannus. Neuro: No facial droop moves all extremities. Unable to fully assess secondary to sedation. Lymph: No cervical or submandibular lymphadenopathy noted on exam. Lines: He has a ET, OG, and PICC line. No signs of infection around the PICC line. Ventilator Settings Ventilator Settings: Ventilator Settings, Last 8 Hours Ventilator Mode A/C Ventilator Mode A/C Ventilator Mode A/C Ventilator Mode A/C Ventilator Mode A/C Ventilator Mode A/C Ventilator Mode A/C Ventilator Mode A/C Ventilator Mode A/C Ventilator Mode A/C Ventilator Mode A/C Ventilator Mode A/C Ventilator Tidal Volume 450 Setting Ventilator Tidal Volume 450 Setting Ventilator Tidal Volume 450 Setting Ventilator Tidal Volume 450 Setting Ventilator Tidal Volume 450 Setting Ventilator Tidal Volume 450 Setting Ventilator Tidal Volume 450 Setting Ventilator Tidal Volume 450 Setting Ventilator Tidal Volume 450 Setting Ventilator Tidal Volume 450 Setting Ventilator Tidal Volume 450 Setting Ventilator Tidal Volume 450 Setting Ventilator Respiratory Rate 16 Setting Ventilator Respiratory Rate 16 Setting Ventilator Respiratory Rate 16 Setting Ventilator Respiratory Rate 16 Setting Ventilator Respiratory Rate 14 Setting Ventilator Respiratory Rate 14 Setting Ventilator Respiratory Rate 14 Setting Ventilator Respiratory Rate 14 Setting Ventilator Respiratory Rate 14 Setting Ventilator Respiratory Rate 14 Setting Ventilator Respiratory Rate 14 Setting Ventilator Respiratory Rate 14 Setting Actual Respiratory Rate 16 Actual Respiratory Rate 16 Actual Respiratory Rate 16 Actual Respiratory Rate 16 Actual Respiratory Rate 14 Actual Respiratory Rate 14 Actual Respiratory Rate 14 Actual Respiratory Rate 14 Actual Respiratory Rate 14 Actual Respiratory Rate 14 Actual Respiratory Rate 14 Positive End Expiratory 5 Pressure Positive End Expiratory 5 Pressure Positive End Expiratory 5 Pressure Positive End Expiratory 5 Pressure Positive End Expiratory 5 Pressure Positive End Expiratory 5 Pressure Positive End Expiratory 5 Pressure Positive End Expiratory 5 Pressure Positive End Expiratory 5 Pressure Positive End Expiratory 5 Pressure Positive End Expiratory 5 Pressure Positive End Expiratory 5 Pressure Peak Inspiratory Airway 40 Pressure Peak Inspiratory Airway 40 Pressure Peak Inspiratory Airway 46 Pressure Peak Inspiratory Airway 41 Pressure Peak Inspiratory Airway 44 Pressure Peak Inspiratory Airway 42 Pressure Peak Inspiratory Airway 40 Pressure Peak Inspiratory Airway 42 Pressure Peak Inspiratory Airway 58 Pressure Peak Inspiratory Airway 40 Pressure Peak Inspiratory Airway 41 Pressure Results - Laboratory Findings CBC and BMP: 08/15/16 03:37 08/15/16 03:37 ABG ABG pH 7.30 pH Units (7.32-7.45) L 08/15/16 04:32 ABG pCO2 54 mmHg (35-45) H 08/15/16 04:32 ABG pO2 96 mmHg (85-104) 08/15/16 04:32 ABG O2 Saturation 97 % (95-98) 08/15/16 04:32 PT/INR, D-dimer PT 14.0 Seconds (9.4-12.1) H 08/08/16 21:17 Abnormal lab findings: Abnormal lab results RBC 3.73 M/mcL (4.19-5.50) L 08/15/16 03:37 Hgb 9.4 g/dL (12.9-16.9) L 08/15/16 03:37 Hct 31.9 % (37.5-50.1) L 08/15/16 03:37 MCH 25.2 pg (28.0-33.3) L 08/15/16 03:37 MCHC 29.5 g/dL (31.6-35.5) L 08/15/16 03:37 RDW 16.1 % (11.5-14.5) H 08/15/16 03:37 Eosinophils # 0.8 K/mcL (0.0-0.6) H 08/15/16 03:37 Nucleated RBCs/100 WBC 0.2 /100 WBC (0) H 08/09/16 11:27 Large Platelets Present (Not Present) A 08/13/16 03:32 Polychromasia 1+ (Not Present) A 08/13/16 03:32 Hypochromasia Present (Not Present) A 08/13/16 03:32 Poikilocytosis 1+ (Not Present) A 08/13/16 03:32 Anisocytosis 1+ (Not Present) A 08/08/16 13:55 Microcytosis Present (Not Present) A 08/13/16 03:32 Ovalocytes 1+ (Not Present) A 08/13/16 03:32 PT 14.0 Seconds (9.4-12.1) H 08/08/16 21:17 ABG pH 7.30 pH Units (7.32-7.45) L 08/15/16 04:32 ABG pCO2 54 mmHg (35-45) H 08/15/16 04:32 ABG Total CO2 28.3 mEq/L (20-26) H 08/15/16 04:32 BUN 67 mg/dL (8-26) H 08/15/16 03:37 Creatinine 2.24 mg/dL (0.72-1.25) H 08/15/16 03:37 Est GFR ( Amer) 38 (> 60) L 08/15/16 03:37 Est GFR (Non-Af Amer) 32 (> 60) L 08/15/16 03:37 BUN/Creatinine Ratio 30 (6-26) H 08/15/16 03:37 Glucose 117 mg/dL (70-99) H 08/15/16 03:37 POC Glucose 90 (58-89) H 08/14/16 23:36 Calculated Osmolality 304 (280-300) H 08/15/16 03:37 Calcium 8.0 mg/dL (8.6-10.8) L 08/15/16 03:37 Ionized Calcium 0.98 mmol/L (1.15-1.35) L 08/14/16 05:20 Phosphorus 6.5 mg/dL (2.3-4.7) H 08/14/16 05:20 AST 48 Units/L (5-34) H 08/15/16 03:37 ALT 181 Units/L (0-55) H 08/15/16 03:37 Alkaline Phosphatase 145 Units/L (38-126) H 08/15/16 03:37 Albumin 1.9 g/dL (3.5-5.0) L 08/15/16 03:37 Globulin 4.1 g/dL (2.4-3.5) H 08/15/16 03:37 Albumin/Globulin Ratio 0.5 (1.1-2.2) L 08/15/16 03:37 Prealbumin 8.0 mg/dL (18.0-45.0) L 08/14/16 04:00 Ur Specimen Adequacy See below A 08/12/16 01:40 Urine Clarity Cloudy (Clear) A 08/13/16 22:00 Urine Protein 100 mg/dL (Neg-Trace) H 08/13/16 22:00 Urine Blood Moderate (Negative) H 08/13/16 22:00 Ur Leukocyte Esterase Moderate (Negative) H 08/13/16 22:00 Urine Microscopic RBC 5-15 per hpf (0-3) H 08/13/16 22:00 Urine Microscopic WBC TNTC per hpf (0-3) H 08/13/16 22:00 Ur Squamous Epith Cells Many per lpf (None-Few) H 08/13/16 22:00 Urine Yeast Few per hpf (None Seen) H 08/13/16 22:00 Ur Culture Indicated? YES (NO) A 08/13/16 22:00 Vancomycin Trough 37.5 mcg/mL (10-20) H* 08/12/16 15:10 Acetaminophen < 1.0 mcg/mL (10-30) L 08/11/16 14:55 EBV Capsid Ag IgG Ab >750.0 U/mL (0.0-21.9) H 08/09/16 11:27 EBV Nuclear Ag Ab Titer 245.0 U/mL (0.0-21.9) H 08/09/16 11:27 - Microbiology Findings Microbiology Findings: Microbiology, Last 48 Hours 08/13/16 22:00 Urine Culture - Final Urine,Clean Catch No growth. 08/13/16 10:30 Sputum Culture - Preliminary Sputum Gram Negative Lavell 08/12/16 01:40 Urine Culture - Final Urine,Clean Catch No growth. - Clinical Findings Intake & Output: Intake & Output 08/14/16 08/15/16 08/15/16 23:59 07:59 15:59 Intake Total 1551 / 1551 300 / 300 493 / 493 Output Total 350 / 350 250 / 250 100 / 100 Balance 1201 / 1201 50 / 50 393 / 393 Weight 115.53 kg
[2016-08-15] MEDS ORDERED: Furosemide 20 MG/2 ML VIAL IVP ONE ×2 (08:42→15:04)
[2016-08-15] MEDS: Budesonide/Formoterol 160/4.5 MDI IH SCH ×2 (09:14→22:14)
--- NOTE | 2016-08-15 11:35 | Infectious Disease Progress No ---
Date of Encounter: 08/15/16 Time of Encounter: 11:33 - Assessment and Plan (1) Sepsis Current Visit: Yes Status: Resolved The patient had fever with Tmax of 102,tachycardia, leukocytosis. The patient also had hypotension, but this is likely secondary to propofol. Resolved. The patient has been afebrile since initial fever. Tachycardia and hypotension have resolved. Blood cultures drawn 08/08/16 are negative x 2 sets. Qualifiers: Sepsis type: sepsis due to unspecified organism Qualified Code(s): A41.9 - Sepsis, unspecified organism (2) Leukocytosis Current Visit: Yes Status: Resolved WBC elevated at 15 thousand with 12% monocytes on admission. Likely secondary to lower extremity cellulitis. Resolved. Qualifiers: Leukocytosis type: unspecified Qualified Code(s): D72.829 - Elevated white blood cell count, unspecified (3) Cellulitis Current Visit: No Status: Acute Location: Left knee. Although there is marked erythema to the BLE, I do not believe this is cellulitis, but likely more related to venous stasis. I do believe there were some cellulitic skin changes overlying the left knee, which have markedly improved. Causative organism MRSA per wound culture, but we need to consider polymicrobial infection as well. Likely secondary to venous stasis ulcers. Left knee x-ray completed shows no joint effusion. Blood cultures drawn 08/08/16 in the ED are negative x 2 sets. Podiatry consulted for wound care recommendations. The patient has received 8 days of IV Vancomycin. Due to his elevated troughs, it is likely that he will remain therapeutic through per pharmacy, which would be 10 days. Will discontinue Vanc today. Continue Zosyn 3.375 grams IV Q8H (day 6). Treated with 2 days prior of IV Meropenem as well. Recommend leaving Zosyn for now until sputum culture finalizes. Monitor renal function and for drug toxicity and dose-adjust antibiotics. Qualifiers: Site of cellulitis: extremity Site of cellulitis of extremity: lower extremity Laterality: unspecified laterality Qualified Code(s): L03.119 - Cellulitis of unspecified part of limb (4) Acute on chronic respiratory failure with hypoxemia Current Visit: Yes Status: Acute Etiology likely multifactorial--> PNA, fluid overload, JOHN, hypoventilation syndrome. Currently intubated. Failed CPAP trial previously due to sedation. Sedation has been turned off. Sputum culture shows GNR. Await final ID and sensitivity. The patient did have episode of emesis during intubation with likely aspiration. Continue Zosyn as outline above until sputum culture finalizes. Continue O2 and supportive care as outlined by the pulmonology team. (5) Cardiopulmonary arrest with successful resuscitation Current Visit: Yes Status: Resolved 08/10/16. Likely secondary to hypoxia. Received 2 rounds of CPR and ACLS drugs before ROSC. (6) Ulcers of both lower legs Current Visit: No Status: Acute Likely secondary to venous stasis. Several large venous stasis ulcers noted to the lower portion of the bilateral lower extremities. Clinically, they do not appear infected. There is no foul odor at this time. Podiatry and wound care consulted for wound care recommendations. Consider transfer to tertiary care center for aggressive wound care and plastic surgery consultation. (7) STEPHANIE (acute kidney injury) Current Visit: Yes Status: Resolved Serum creatinine initially elevated on admission, but resolved. New STEPHANIE onset three days ago. Likely secondary to vanc toxicity. Vanc currently on hold and patient being monitored by the pharmacy team. Serum creatinine worse today 1.44>1.81>2.08>2.24. Consider nephrology consult. Will discontinue Vanc today to help minimize nephrotoxicity. Dose-adjust medications based on creatinine clearance. (8) Transaminitis Current Visit: Yes Status: Acute Improved. Levels are trending down. Abdominal UTS negative. Hepatitis profile negative. EBV antibodies positive. GI consulted. 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 No acute events noted overnight. Patient remains intubated and on the ventilator, sedation has been stopped in an attempt to wean the vent. No new issues notes. Patient arousable to verbal stimuli, but does not follow commands or respond to questions. Infect Dis PN-Objective Data - Labs CBC & Chem 7: 08/15/16 03:37 08/15/16 03:37 Labs: Laboratory Results - last 24 hr 08/14/16 08/14/16 08/14/16 01:15 06:12 11:22 WBC RBC Hgb Hct MCV MCH MCHC RDW Plt Count MPV Immature Gran % Seg Neutrophils % Lymphocytes % Monocytes % Eosinophils % Basophils % Neutrophils # Lymphocytes # Monocytes # Eosinophils # Basophils # ABG pH ABG pCO2 ABG pO2 ABG HCO3 ABG Total CO2 ABG O2 Saturation ABG Base Excess Blood Gas Modality Inspired O2 Sodium Potassium Chloride Carbon Dioxide BUN Creatinine Est GFR ( Amer) Est GFR (Non-Af Amer) BUN/Creatinine Ratio Glucose POC Glucose 103 H 92 H 101 H Calculated Osmolality Calcium Total Bilirubin AST ALT Alkaline Phosphatase Serum Total Protein Albumin Globulin Albumin/Globulin Ratio 08/14/16 08/14/16 08/15/16 22:05 23:36 03:37 WBC 8.3 RBC 3.73 L Hgb 9.4 L Hct 31.9 L MCV 85.5 MCH 25.2 L MCHC 29.5 L RDW 16.1 H Plt Count 215 MPV 10.0 Immature Gran % 1.2 Seg Neutrophils % 61.7 Lymphocytes % 14.3 Monocytes % 13.1 Eosinophils % 9.2 Basophils % 0.5 Neutrophils # 5.1 Lymphocytes # 1.2 Monocytes # 1.1 Eosinophils # 0.8 H Basophils # 0.0 ABG pH ABG pCO2 ABG pO2 ABG HCO3 ABG Total CO2 ABG O2 Saturation ABG Base Excess Blood Gas Modality Inspired O2 Sodium 138 Potassium 4.3 Chloride 104 Carbon Dioxide 21 BUN 64 H Creatinine 2.08 H Est GFR ( Amer) 42 L Est GFR (Non-Af Amer) 35 L BUN/Creatinine Ratio 31 H Glucose 101 H POC Glucose 90 H Calculated Osmolality 304 H Calcium 7.7 L Total Bilirubin AST ALT Alkaline Phosphatase Serum Total Protein Albumin Globulin Albumin/Globulin Ratio 08/15/16 08/15/16 03:37 04:32 WBC RBC Hgb Hct MCV MCH MCHC RDW Plt Count MPV Immature Gran % Seg Neutrophils % Lymphocytes % Monocytes % Eosinophils % Basophils % Neutrophils # Lymphocytes # Monocytes # Eosinophils # Basophils # ABG pH 7.30 L ABG pCO2 54 H ABG pO2 96 ABG HCO3 26.6 ABG Total CO2 28.3 H ABG O2 Saturation 97 ABG Base Excess -0.4 Blood Gas Modality VENT Inspired O2 30 Sodium 137 Potassium 4.1 Chloride 102 Carbon Dioxide 22 BUN 67 H Creatinine 2.24 H Est GFR ( Amer) 38 L Est GFR (Non-Af Amer) 32 L BUN/Creatinine Ratio 30 H Glucose 117 H POC Glucose Calculated Osmolality 304 H Calcium 8.0 L Total Bilirubin 0.3 AST 48 H ALT 181 H Alkaline Phosphatase 145 H Serum Total Protein 6.0 Albumin 1.9 L Globulin 4.1 H Albumin/Globulin Ratio 0.5 L Cultures: Cultures 08/13/16 10:30 Sputum Culture - Preliminary Sputum Gram Negative Lavell 08/13/16 22:00 Urine Culture - Final Urine,Clean Catch No growth. 08/12/16 01:40 Urine Culture - Final Urine,Clean Catch No growth. 08/09/16 18:24 Wound Culture - Final Other-Specify in Comments Methicillin Resistant S.aureus Serology 08/14/16 08/13/16 08/12/16 Range/Units 04:03 22:00 01:40 Ur Specimen Adequacy See below A Urine Color Yellow Yellow (Yellow) Urine Clarity Cloudy A Cloudy A (Clear) Urine pH 6.0 6.0 (5.0-8.0) pH Units Ur Specific [place] 1.023 1.023 (1.010-1.025) Urine Protein 100 H 30 H (Neg-Trace) mg/dL Urine Glucose (UA) Normal Normal (Normal) mg/dL Urine Ketones Negative Negative (Negative) mg/dL Urine Blood Moderate H Small H (Negative) Urine Nitrite Negative Negative (Negative) Urine Bilirubin Negative Negative (Negative) Urine Urobilinogen Normal Normal (Normal) mg/dL Ur Leukocyte Esterase Moderate H Moderate H (Negative) Urine Microscopic RBC 5-15 H 3-5 H (0-3) per hpf Urine Microscopic WBC TNTC H 15-30 H (0-3) per hpf Ur Squamous Epith Cells Many H Many H (None-Few) per lpf Urine Bacteria None Seen Few (None-Few) per hpf Hyaline Casts Few None Seen (None-Few) per lpf Urine Yeast Few H Few H (None Seen) per hpf Ur Culture Indicated? YES A YES A (NO) Urine Creatinine 46 mg/dL Urine Sodium < 20.0 mEq/L EBV Capsid Ag IgG Ab (0.0-21.9) U/mL EBV Capsid Ag IgM Ab (0.0-43.9) U/mL EBV Early Antigen IgG (0.0-10.9) U/mL EBV Nuclear Ag Ab Titer (0.0-21.9) U/mL Hepatitis A IgM Ab (Nonreactive) Hep Bs Antigen (Nonreactive) Hep B Core IgM Ab (Nonreactive) Hepatitis C Ab Screen (Nonreactive) 08/09/16 08/08/16 Range/Units 11:27 20:11 Ur Specimen Adequacy Urine Color (Yellow) Urine Clarity (Clear) Urine pH (5.0-8.0) pH Units Ur Specific [place] (1.010-1.025) Urine Protein (Neg-Trace) mg/dL Urine Glucose (UA) (Normal) mg/dL Urine Ketones (Negative) mg/dL Urine Blood (Negative) Urine Nitrite (Negative) Urine Bilirubin (Negative) Urine Urobilinogen (Normal) mg/dL Ur Leukocyte Esterase (Negative) Urine Microscopic RBC (0-3) per hpf Urine Microscopic WBC (0-3) per hpf Ur Squamous Epith Cells (None-Few) per lpf Urine Bacteria (None-Few) per hpf Hyaline Casts (None-Few) per lpf Urine Yeast (None Seen) per hpf Ur Culture Indicated? (NO) Urine Creatinine mg/dL Urine Sodium mEq/L EBV Capsid Ag IgG Ab >750.0 H (0.0-21.9) U/mL EBV Capsid Ag IgM Ab <10.0 (0.0-43.9) U/mL EBV Early Antigen IgG <5.0 (0.0-10.9) U/mL EBV Nuclear Ag Ab Titer 245.0 H (0.0-21.9) U/mL Hepatitis A IgM Ab Nonreactive (Nonreactive) Hep Bs Antigen Nonreactive (Nonreactive) Hep B Core IgM Ab Nonreactive (Nonreactive) Hepatitis C Ab Screen Nonreactive (Nonreactive) - Impressions Impressions Retroperitoneum Ultrasound 08/14/16 14:59 IMPRESSION: Severely limited study with regards to visualization of the kidneys and bladder secondary to patient's body habitus. The right kidney is partially seen and appears normal in size and overall echogenicity. The left kidney and bladder were not visualized. D/ / Lisandro Pickard MD / Lisandro Pickard MD Interpreting Provider: Lisandro Pickard MD Exam - Constitutional Vitals: Temp Pulse Resp BP Pulse Ox 97.7 F 64 16 108/65 97 08/15/16 11:32 08/15/16 10:00 08/15/16 11:20 08/15/16 11:20 08/15/16 11:20 General appearance: morbidly obese, no acute distress, no febrile - Head Head exam: Present: atraumatic, normal inspection, normocephalic - Eye Eye exam: Present: normal appearance, PERRL Pupils: Present: normal accommodation Additional comments: Does not follow commands to assess EOM appropriately. - ENT ENT exam: Present: mucous membranes moist - Neck Neck exam: Present: normal inspection - Respiratory Respiratory exam: Present: rhonchi (Scattered throughout). Absent: rales, respiratory distress Additional comments: O2 via the ventilator at this time. - Cardiovascular Cardiovascular exam: Present: RRR, +S1, +S2 - GI/Abdominal GI/Abdominal exam: Present: normal bowel sounds, soft. Absent: distended, tenderness Additional comments: Edwards catheter noted to be draining clear yellow urine. OG tube, currently clamped. - Extremities Exam Extremities exam: Absent: joint swelling, tenderness Additional comments: BLE dressing intact with moderate amount of old serous drainage noted. Left knee dressed with ABD and paper tape. Erythema markedly improved. Linear ulcers noted without drainage. - Neurological Exam Neurological exam: Present: altered (Sedated. Opens eyes to verbal stimuli, but does not follow commands or respond to questions. Appears to be trying to talk and communicate.) - Skin Skin exam: Present: dry, intact, normal color, warm - Additional findings Additional findings: Triple lumen PICC line noted to the RUE with transparent dressing C/D/I. Consult Discharge Plan - Plan Referrals: NO,PCP [Primary Care Provider] - - Attending Attestation I examined this patient and my medical decision-making was reviewed with the [employer]/PA/Advanced Practice Nurse/Resident Physician. I agree with the documented findings, disposition and treatment plan as described except to the extent set forth below.
[2016-08-15 15:13] LABS: Calcium 8.2 mg/dL (8.6-10.8); Potassium 3.9 mEq/L (3.5-4.5)
[2016-08-15] MEDS: *HR* FentaNYL (PF) 100 MCG/2 ML VIAL IVP PRN ×3 (15:31→23:53)
[2016-08-16] MEDS: *HR* FentaNYL (PF) 100 MCG/2 ML VIAL IVP PRN ×5 (03:03→22:48)
[2016-08-16] MEDS: Ipratropium/Albuterol Neb 3 ML IH SCH ×4 (04:26→21:00)
[2016-08-16 04:36] LABS: ABG Base Excess 1.7 mEq/L (-2.0 to 3.0); ABG HCO3 29.3 mEQ/L (21-27); ABG Oxygen Saturation 93 % (95-98); ABG PCO2 61 mmHg (35-45); ABG PH 7.29 pH Units (7.32-7.45); ABG PO2 74 mmHg (85-104); ABG TCO2 31.2 mEq/L (20-26)
[2016-08-16 04:40] LABS: Blood Gas FiO2 30 %
[2016-08-16] MEDS: Lacri-Lube 3.5 GM TUBE BOTH EYES SCH ×6 (04:53→23:20)
[2016-08-16 06:00] LABS: Ionized Calcium 1.14 mmol/L (1.15-1.35)
[2016-08-16 06:01] LABS: Calcium 8.4 mg/dL (8.6-10.8); Magnesium 2.5 mg/dL (1.6-2.6); Phosphorous 7.1 mg/dL (2.3-4.7); Potassium 3.8 mEq/L (3.5-4.5)
--- NOTE | 2016-08-16 06:58 | Pulmonology Progress Note ---
<MelanieDereck W - Last Filed: 08/16/16 10:06> Date of Encounter: 08/16/16 Objective PUL Vital signs: Last Vital Signs Temp 97.2 F L 08/16/16 07:19 Pulse 63 08/16/16 07:00 Resp 18 08/16/16 07:38 BP 114/62 08/16/16 07:38 Pulse Ox 100 08/16/16 07:38 Ventilator Settings Ventilator Settings: Ventilator Settings, Last 8 Hours Ventilator Mode A/C Ventilator Mode A/C Ventilator Mode A/C Ventilator Mode A/C Ventilator Mode A/C Ventilator Mode A/C Ventilator Mode A/C Ventilator Mode A/C Ventilator Mode A/C Ventilator Mode A/C Ventilator Mode A/C Ventilator Mode A/C Ventilator Tidal Volume 450 Setting Ventilator Tidal Volume 450 Setting Ventilator Tidal Volume 450 Setting Ventilator Tidal Volume 450 Setting Ventilator Tidal Volume 450 Setting Ventilator Tidal Volume 450 Setting Ventilator Tidal Volume 450 Setting Ventilator Tidal Volume 450 Setting Ventilator Tidal Volume 450 Setting Ventilator Tidal Volume 450 Setting Ventilator Tidal Volume 450 Setting Ventilator Tidal Volume 450 Setting Ventilator Respiratory Rate 16 Setting Ventilator Respiratory Rate 18 Setting Ventilator Respiratory Rate 16 Setting Ventilator Respiratory Rate 16 Setting Ventilator Respiratory Rate 16 Setting Ventilator Respiratory Rate 16 Setting Ventilator Respiratory Rate 16 Setting Ventilator Respiratory Rate 16 Setting Ventilator Respiratory Rate 16 Setting Ventilator Respiratory Rate 16 Setting Ventilator Respiratory Rate 16 Setting Ventilator Respiratory Rate 16 Setting Actual Respiratory Rate 16 Actual Respiratory Rate 18 Actual Respiratory Rate 16 Actual Respiratory Rate 16 Actual Respiratory Rate 16 Actual Respiratory Rate 16 Actual Respiratory Rate 16 Actual Respiratory Rate 16 Actual Respiratory Rate 17 Actual Respiratory Rate 16 Actual Respiratory Rate 16 Positive End Expiratory 5 Pressure Positive End Expiratory 5 Pressure Positive End Expiratory 5 Pressure Positive End Expiratory 5 Pressure Positive End Expiratory 5 Pressure Positive End Expiratory 5 Pressure Positive End Expiratory 5 Pressure Positive End Expiratory 5 Pressure Positive End Expiratory 5 Pressure Positive End Expiratory 5 Pressure Positive End Expiratory 5 Pressure Positive End Expiratory 5 Pressure Peak Inspiratory Airway 40 Pressure Peak Inspiratory Airway 42 Pressure Peak Inspiratory Airway 45 Pressure Peak Inspiratory Airway 53 Pressure Peak Inspiratory Airway 37 Pressure Peak Inspiratory Airway 36 Pressure Peak Inspiratory Airway 36 Pressure Peak Inspiratory Airway 37 Pressure Peak Inspiratory Airway 36 Pressure Peak Inspiratory Airway 52 Pressure Results - Laboratory Findings CBC and BMP: 08/16/16 09:05 08/16/16 04:30 ABG ABG pH 7.29 pH Units (7.32-7.45) L 08/16/16 04:20 ABG pCO2 61 mmHg (35-45) H 08/16/16 04:20 ABG pO2 74 mmHg (85-104) L 08/16/16 04:20 ABG O2 Saturation 93 % (95-98) L 08/16/16 04:20 PT/INR, D-dimer PT 14.0 Seconds (9.4-12.1) H 08/08/16 21:17 Abnormal lab findings: Abnormal lab results RBC 3.73 M/mcL (4.19-5.50) L 08/15/16 03:37 Hgb 9.4 g/dL (12.9-16.9) L 08/15/16 03:37 Hct 31.9 % (37.5-50.1) L 08/15/16 03:37 MCH 25.2 pg (28.0-33.3) L 08/15/16 03:37 MCHC 29.5 g/dL (31.6-35.5) L 08/15/16 03:37 RDW 16.1 % (11.5-14.5) H 08/15/16 03:37 Eosinophils # 0.8 K/mcL (0.0-0.6) H 08/15/16 03:37 Nucleated RBCs/100 WBC 0.2 /100 WBC (0) H 08/09/16 11:27 Large Platelets Present (Not Present) A 08/13/16 03:32 Polychromasia 1+ (Not Present) A 08/13/16 03:32 Hypochromasia Present (Not Present) A 08/13/16 03:32 Poikilocytosis 1+ (Not Present) A 08/13/16 03:32 Anisocytosis 1+ (Not Present) A 08/08/16 13:55 Microcytosis Present (Not Present) A 08/13/16 03:32 Ovalocytes 1+ (Not Present) A 08/13/16 03:32 PT 14.0 Seconds (9.4-12.1) H 08/08/16 21:17 ABG pH 7.29 pH Units (7.32-7.45) L 08/16/16 04:20 ABG pCO2 61 mmHg (35-45) H 08/16/16 04:20 ABG pO2 74 mmHg (85-104) L 08/16/16 04:20 ABG HCO3 29.3 mEQ/L (21-27) H 08/16/16 04:20 ABG Total CO2 31.2 mEq/L (20-26) H 08/16/16 04:20 ABG O2 Saturation 93 % (95-98) L 08/16/16 04:20 BUN 78 mg/dL (8-26) H 08/16/16 04:30 Creatinine 2.38 mg/dL (0.72-1.25) H 08/16/16 04:30 Est GFR ( Amer) 36 (> 60) L 08/16/16 04:30 Est GFR (Non-Af Amer) 30 (> 60) L 08/16/16 04:30 BUN/Creatinine Ratio 33 (6-26) H 08/16/16 04:30 POC Glucose 92 (58-89) H 08/15/16 23:35 Calculated Osmolality 313 (280-300) H 08/16/16 04:30 Calcium 8.4 mg/dL (8.6-10.8) L 08/16/16 04:30 Ionized Calcium 1.14 mmol/L (1.15-1.35) L 08/16/16 04:30 Phosphorus 7.1 mg/dL (2.3-4.7) H 08/16/16 04:30 AST 44 Units/L (5-34) H 08/16/16 04:30 ALT 147 Units/L (0-55) H 08/16/16 04:30 Alkaline Phosphatase 142 Units/L (38-126) H 08/16/16 04:30 Albumin 2.2 g/dL (3.5-5.0) L 08/16/16 04:30 Globulin 4.4 g/dL (2.4-3.5) H 08/16/16 04:30 Albumin/Globulin Ratio 0.5 (1.1-2.2) L 08/16/16 04:30 Prealbumin 8.0 mg/dL (18.0-45.0) L 08/14/16 04:00 Ur Specimen Adequacy See below A 08/12/16 01:40 Urine Clarity Cloudy (Clear) A 08/13/16 22:00 Urine Protein 100 mg/dL (Neg-Trace) H 08/13/16 22:00 Urine Blood Moderate (Negative) H 08/13/16 22:00 Ur Leukocyte Esterase Moderate (Negative) H 08/13/16 22:00 Urine Microscopic RBC 5-15 per hpf (0-3) H 08/13/16 22:00 Urine Microscopic WBC TNTC per hpf (0-3) H 08/13/16 22:00 Ur Eosinophil Smear 10 % (None Seen) H 08/15/16 12:00 Ur Squamous Epith Cells Many per lpf (None-Few) H 08/13/16 22:00 Urine Yeast Few per hpf (None Seen) H 08/13/16 22:00 Ur Culture Indicated? YES (NO) A 08/13/16 22:00 Vancomycin Trough 22.2 mcg/mL (10-20) H* 08/16/16 04:30 Acetaminophen < 1.0 mcg/mL (10-30) L 08/11/16 14:55 EBV Capsid Ag IgG Ab >750.0 U/mL (0.0-21.9) H 08/09/16 11:27 EBV Nuclear Ag Ab Titer 245.0 U/mL (0.0-21.9) H 08/09/16 11:27 - Microbiology Findings Microbiology Findings: Microbiology, Last 48 Hours 08/13/16 10:30 Sputum Culture - Final Sputum Acinetobacter saadia/haem MDRO 08/13/16 22:00 Urine Culture - Final Urine,Clean Catch No growth. - Clinical Findings Intake & Output: Intake & Output 08/15/16 08/16/16 08/16/16 23:59 07:59 15:59 Intake Total 667 / 667 0 / 0 Output Total 1000 / 1000 925 / 925 Balance -333 / -333 -925 / -925 Weight 115.212 kg Consult Discharge Plan - Plan Referrals: NO,PCP [Primary Care Provider] - - Attending Attestation I examined this patient and my medical decision-making was reviewed with the BURN TABLE OPERATOR/PA/Advanced Practice Nurse/Resident Physician. I agree with the documented findings, disposition and treatment plan as described except to the extent set forth below. Patient seen and examined at bedside Labs, radiology, chart personally reviewed. All lines examined without evidence of infection. 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 recieving intermittent boluses of fentanyl for sedation. much more awake today. 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 SBT when mental status allows. Cards: MAP > 60 . s/p Cardiac Arrest ECHO results notable for preserved EF% but otherwise poor windows. cont to monitor. Cont to diurese for pulmonary edema FEN-GI:GI prophylaxis given.cont enteral nutrition. continues to have regular bowel movements. Renal:: worsening STEPHANIE multifactorial including high VANC trough and hypotension. there is concern for AIN given urine eosinophils along with apparent urticaria - nephrology consulted. for this will start IV solumedrol empirically. Suspect realted to beta lactam use which has been stopped ID: sepsis s/t presumed cellulitis.?aspiration pna and sputum culture + for acinetobacter (?colonizer) ID following ABx stopped at present will monitor and d/w ID regarding modifying regimen Heme/Onc: DVT prophylaxis given/ Stable chronic anemia. Endo: glucose monitored Integ/MSK: b/l stasis dermatitis/cellulitis. cont skin care per ICU protocol CODE: Full.. <Barron Husain - Last Filed: 08/16/16 11:38> Date of Encounter: 08/16/16 Time of Encounter: 06:58 Assessment and Plan (1) Acute on chronic respiratory failure with hypoxemia Current Visit: Yes Status: Acute patient intubated 08/10 due to hypoxemia and hypercapnia likely secondary to chronic respiratory failure secondary to cor pulmonale and OHS as well as pulmonary edema/vascular congestion - prior ECHO 05/25/2016 sub-optimal, LV grossly normal, systolic normal, severe pulm HTN RVSP 75 mmHg - ECHO 08/08/2015 EF 55% with mild pulm HTN RVSP 42 mmHg no episodes of desaturation overnight CXR today 08/16 does not reveal any significant changes received total of 7 days of Vanc and Zosyn - de-escalation of Zosyn 08/15 - last Vanc trough 22.2 sputum culture 08/13 grew Acinetobacter baumannii MDR - appreciated IDs recommendations vent settings changed to 16/450/30%/5 PEEP - ABG 7.29/61/74/29.3/93/1.7 continue scheduled duonebs and steroids failed CPAP yesterday, has been off sedation and will continue weaning parameters (2) Acute on chronic respiratory failure with hypercapnia Current Visit: Yes Status: Acute improving, acute on chronic hypercapnia noncompliant with BiPAP prior to intubation plan as above (3) Sepsis Current Visit: Yes Status: Resolved resolved, does not meed SIRS criteria - leukocytosis resolved - remains afebrile with stable vitals MRSA wound culture (08/09) blood cultures x2 (08/08) NGTD sputum culture (08/13) Acinetobacter baumannii MDR but suspect colonization, will await IDs recommendations PICC placed for intermediate accountant antibiotics has received total of 7 days of antibiotics, Vancomycin and Zosyn - ID recommended discontinuation of Meropenem on day 3 and Zosyn was started - de-escalatin of Zosyn 08/15 - pharmacy to dose Vancomycin, trough remains elevated 22.2 - renal function continues to worsen 2.38 (2.28) lactate was normal 1.1 Qualifiers: Qualified Code(s): A41.9 - Sepsis, unspecified organism (4) STEPHANIE (acute kidney injury) Current Visit: Yes Status: Resolved continues to worsen, Cr 2.38 (2.28) likely mulitifactorial with sepsis in the setting of elevated vancomycin and suspected AIN - FENa 0.7% - Vanc trough remains elevated 22.2 -appreciate pharmacy's assistance with Vancomycin dosing suspected AIN with urine eosinophilia and peripheral eosinophilia Nephrology has been consulted renal ultrasound 08/14 did not show any acute abnormalities will continue to monitor strict I/Os (5) Chronic wound of extremity Current Visit: No Status: Chronic cellulitic changes to bilateral lower extremity chronic venous stasis MRSA positive wound contact precautions continue wound care L knee x-ray shows no joint effusion Infectious Disease and Wound Care/Podiatry have been consulted, recommendations appreciated (6) Cellulitis Current Visit: No Status: Acute plan as above Qualifiers: Qualified Code(s): L03.119 - Cellulitis of unspecified part of limb (7) AIN (acute interstitial nephritis) Current Visit: Yes Status: Acute worsening STEPHANIE peripheral and urine eosinophilia to suggest AIN - suspect related to beta-lactam use which has been stopped Nephrology consulted and appreciate recommendations Zosyn discontinued 08/15 IV solumedrol started empirically (8) Bacterial pneumonia Current Visit: Yes Status: Acute emesis noted during intubation concern for aspiration pneumonia received 7 days of anaaerobic coverage (received 1 day of Meropenem prior to switching to Zosyn) Zosyn completed (9) Chronic anemia Current Visit: Yes Status: Chronic likely anemia of chronic disease remains stable at 9.3 (9.3) required transfusion Hgb as low as 3.4 in the past 01/07/2016 (10) Cardiopulmonary arrest with successful resuscitation Current Visit: Yes Status: Resolved cardiac arrest s/p intubation 08/10 patient vomited --> bradycardia --> asystole successful resuscitation after 2 rounds of CPR and 1 EPI before ROSC continue to monitor neurologic and cardiopulmonary status ECHO 08/15 difficult exam, poor windows, grossly normal LV & RV size and function , normal valvular function continue diurese for pulm edema (11) Transaminitis Current Visit: Yes Status: Acute significantly improved and continues to downtrend - AST 44 (48) - ALT 147 (181) no evidence of jaundice or scleral icterus GI consulted and recommendations appreciated unclear etiology, consider possible shock liver from hypotension EBV IgG positive antibodies and negative IgM, suspect from prior exposure APAP level is <1 continue to hold Tylenol or any hepatic toxic medicationsno evidence of shock liver negative hepatitis panel no abnormalities on the liver ultrasound, however, limited due to patient comfort (12) Morbid obesity with BMI of 50.0-59.9, adult Current Visit: Yes Status: Chronic secondary to Prader Willi Syndrome Nutrition consulted - tube feeds at 65 with 200 free water GI prophylaxis with IV Protonix (13) 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 (14) Protein calorie malnutrition Current Visit: Yes Status: Acute bi tester consulted tube feeds at goal 65 continue feeds (15) Hypoalbuminemia Current Visit: Yes Status: Acute continue tube feeds (16) DVT prophylaxis Current Visit: No Status: Acute heparin subq for DVT prophylaxis PHILOSOPHY FACULTY: off sedation with push dose Fentanyl, no acute distress, opens eyes to voice Cardio: relatively stable, BPs stable with MAPs maintained >60, CXR did not show any acute changes, ECHO pending, history of pulm HTN Pulm: acute on chronic respiratory failure that is multifactorial, continues to have adequate ventilation and oxygen, intubated 08/10, continue weaning parameters and possible extubation FEN-GI: net cumilative 14 L since admission, give IV lasix, tube feeds at goal, GI prophylaxis Renal: UOP improving with lasix, worsening STEPHANIE possibly prerenal from heart failure vs. Vanc toxicity vs. AIN, continue to monitor, goal -1-1.5L net output daily Heme/Onc: DVT prophylaxis, Heparin SQ ID: cellulitis of chronic venous stasis ulcers, ID on board, wound culture +MRSA , sputum culture +Acinetobacter baumannii MDR may consider Colistin but likely is colonization Endo: blood glucose monitored Lines: PICC, all lines checked and no evidence of infections Skin: skin care per nursing routine care, wound care for LE Lytes: continue to monitor and replete PRN Subjective Principal diagnosis: Respiratory failure, sepsis, cellulitis Interval history: Patient has been off sedation. We required pushed dose Fentanyl for agitation. No other major events overnight. He did not have any event alarms or episodes of desaturation overnight. Patient was seen and examined at bedside. Does not appear to be in any acute distress. He opens his eyes to voice. Reviewing his warning labs, respirations increased to 16 from 14. Awaiting CXR. He is making good urine. Objective PUL Vital signs: Last Vital Signs Temp 97.9 F 08/16/16 04:35 Pulse 63 08/16/16 06:00 Resp 16 08/16/16 06:00 BP 109/67 08/16/16 06:00 Pulse Ox 100 08/16/16 06:00 General appearance: no acute distress (off sedation), other (morbidly obese with typical Prader Willi features, opens eyes to voice) Eyes: nonicteric ENT: other (endotracheal tube and OG in place) Neck: supple, no JVD, other (trachea midline) Effort: other (mechanical ventilation with good symmetric chest rise) Auscultation: bilateral: other (coarse breath sounds) Cardiovascular: regular rate and rhythm, other (distant heart sounds) Gastrointestinal: normoactive bowel sounds, soft, non-tender, other Integumentary: erythema (improved), decubitus ulcer (improbing, chronic venous stasis ulcers to bilateral LE with cellulitic changes, L left extends from ankle to lower 1/3 thigh, R leg extends ankle to knee; diffuse excoriations to bilateral LE) Extremities: anasarca (appears chronic), other (difficult to palpate pulses, wounds with serous drainage, non-odorous,, oval wound to the mid right anterior singh, oval wound to lateral lower right leg extended posterior, stellate wound to the left lower leg that is nearly circumferential, ABDs placed on left knee) non-focal exam (moves 4 extremities without difficulty), pupils equal and round , unable to assess due to mental status PICC in right upper arm no signs of infection around the lines Ventilator Settings Ventilator Settings: Ventilator Settings, Last 8 Hours Ventilator Mode A/C Ventilator Mode A/C Ventilator Mode A/C Ventilator Mode A/C Ventilator Mode A/C Ventilator Mode A/C Ventilator Mode A/C Ventilator Mode A/C Ventilator Mode A/C Ventilator Mode A/C Ventilator Mode A/C Ventilator Mode A/C Ventilator Mode A/C Ventilator Tidal Volume 450 Setting Ventilator Tidal Volume 450 Setting Ventilator Tidal Volume 450 Setting Ventilator Tidal Volume 450 Setting Ventilator Tidal Volume 450 Setting Ventilator Tidal Volume 450 Setting Ventilator Tidal Volume 450 Setting Ventilator Tidal Volume 450 Setting Ventilator Tidal Volume 450 Setting Ventilator Tidal Volume 450 Setting Ventilator Tidal Volume 450 Setting Ventilator Tidal Volume 450 Setting Ventilator Tidal Volume 450 Setting Ventilator Respiratory Rate 16 Setting Ventilator Respiratory Rate 16 Setting Ventilator Respiratory Rate 16 Setting Ventilator Respiratory Rate 16 Setting Ventilator Respiratory Rate 16 Setting Ventilator Respiratory Rate 16 Setting Ventilator Respiratory Rate 16 Setting Ventilator Respiratory Rate 16 Setting Ventilator Respiratory Rate 16 Setting Ventilator Respiratory Rate 16 Setting Ventilator Respiratory Rate 16 Setting Ventilator Respiratory Rate 16 Setting Ventilator Respiratory Rate 16 Setting Actual Respiratory Rate 16 Actual Respiratory Rate 16 Actual Respiratory Rate 16 Actual Respiratory Rate 16 Actual Respiratory Rate 16 Actual Respiratory Rate 16 Actual Respiratory Rate 17 Actual Respiratory Rate 16 Actual Respiratory Rate 16 Actual Respiratory Rate 16 Actual Respiratory Rate 18 Actual Respiratory Rate 16 Positive End Expiratory 5 Pressure Positive End Expiratory 5 Pressure Positive End Expiratory 5 Pressure Positive End Expiratory 5 Pressure Positive End Expiratory 5 Pressure Positive End Expiratory 5 Pressure Positive End Expiratory 5 Pressure Positive End Expiratory 5 Pressure Positive End Expiratory 5 Pressure Positive End Expiratory 5 Pressure Positive End Expiratory 5 Pressure Positive End Expiratory 5 Pressure Positive End Expiratory 5 Pressure Peak Inspiratory Airway 42 Pressure Peak Inspiratory Airway 45 Pressure Peak Inspiratory Airway 53 Pressure Peak Inspiratory Airway 37 Pressure Peak Inspiratory Airway 36 Pressure Peak Inspiratory Airway 36 Pressure Peak Inspiratory Airway 37 Pressure Peak Inspiratory Airway 36 Pressure Peak Inspiratory Airway 52 Pressure Peak Inspiratory Airway 39 Pressure Peak Inspiratory Airway 49 Pressure Peak Inspiratory Airway 45 Pressure Results - Laboratory Findings CBC and BMP: 08/16/16 09:05 08/16/16 04:30 ABG ABG pH 7.29 pH Units (7.32-7.45) L 08/16/16 04:20 ABG pCO2 61 mmHg (35-45) H 08/16/16 04:20 ABG pO2 74 mmHg (85-104) L 08/16/16 04:20 ABG O2 Saturation 93 % (95-98) L 08/16/16 04:20 PT/INR, D-dimer PT 14.0 Seconds (9.4-12.1) H 08/08/16 21:17 Abnormal lab findings: Abnormal lab results RBC 3.73 M/mcL (4.19-5.50) L 08/15/16 03:37 Hgb 9.4 g/dL (12.9-16.9) L 08/15/16 03:37 Hct 31.9 % (37.5-50.1) L 08/15/16 03:37 MCH 25.2 pg (28.0-33.3) L 08/15/16 03:37 MCHC 29.5 g/dL (31.6-35.5) L 08/15/16 03:37 RDW 16.1 % (11.5-14.5) H 08/15/16 03:37 Eosinophils # 0.8 K/mcL (0.0-0.6) H 08/15/16 03:37 Nucleated RBCs/100 WBC 0.2 /100 WBC (0) H 08/09/16 11:27 Large Platelets Present (Not Present) A 08/13/16 03:32 Polychromasia 1+ (Not Present) A 08/13/16 03:32 Hypochromasia Present (Not Present) A 08/13/16 03:32 Poikilocytosis 1+ (Not Present) A 08/13/16 03:32 Anisocytosis 1+ (Not Present) A 08/08/16 13:55 Microcytosis Present (Not Present) A 08/13/16 03:32 Ovalocytes 1+ (Not Present) A 08/13/16 03:32 PT 14.0 Seconds (9.4-12.1) H 08/08/16 21:17 ABG pH 7.29 pH Units (7.32-7.45) L 08/16/16 04:20 ABG pCO2 61 mmHg (35-45) H 08/16/16 04:20 ABG pO2 74 mmHg (85-104) L 08/16/16 04:20 ABG HCO3 29.3 mEQ/L (21-27) H 08/16/16 04:20 ABG Total CO2 31.2 mEq/L (20-26) H 08/16/16 04:20 ABG O2 Saturation 93 % (95-98) L 08/16/16 04:20 BUN 78 mg/dL (8-26) H 08/16/16 04:30 Creatinine 2.38 mg/dL (0.72-1.25) H 08/16/16 04:30 Est GFR ( Amer) 36 (> 60) L 08/16/16 04:30 Est GFR (Non-Af Amer) 30 (> 60) L 08/16/16 04:30 BUN/Creatinine Ratio 33 (6-26) H 08/16/16 04:30 POC Glucose 92 (58-89) H 08/15/16 23:35 Calculated Osmolality 313 (280-300) H 08/16/16 04:30 Calcium 8.4 mg/dL (8.6-10.8) L 08/16/16 04:30 Ionized Calcium 1.14 mmol/L (1.15-1.35) L 08/16/16 04:30 Phosphorus 7.1 mg/dL (2.3-4.7) H 08/16/16 04:30 AST 48 Units/L (5-34) H 08/15/16 03:37 ALT 181 Units/L (0-55) H 08/15/16 03:37 Alkaline Phosphatase 145 Units/L (38-126) H 08/15/16 03:37 Albumin 1.9 g/dL (3.5-5.0) L 08/15/16 03:37 Globulin 4.1 g/dL (2.4-3.5) H 08/15/16 03:37 Albumin/Globulin Ratio 0.5 (1.1-2.2) L 08/15/16 03:37 Prealbumin 8.0 mg/dL (18.0-45.0) L 08/14/16 04:00 Ur Specimen Adequacy See below A 08/12/16 01:40 Urine Clarity Cloudy (Clear) A 08/13/16 22:00 Urine Protein 100 mg/dL (Neg-Trace) H 08/13/16 22:00 Urine Blood Moderate (Negative) H 08/13/16 22:00 Ur Leukocyte Esterase Moderate (Negative) H 08/13/16 22:00 Urine Microscopic RBC 5-15 per hpf (0-3) H 08/13/16 22:00 Urine Microscopic WBC TNTC per hpf (0-3) H 08/13/16 22:00 Ur Eosinophil Smear 10 % (None Seen) H 08/15/16 12:00 Ur Squamous Epith Cells Many per lpf (None-Few) H 08/13/16 22:00 Urine Yeast Few per hpf (None Seen) H 08/13/16 22:00 Ur Culture Indicated? YES (NO) A 08/13/16 22:00 Vancomycin Trough 22.2 mcg/mL (10-20) H* 08/16/16 04:30 Acetaminophen < 1.0 mcg/mL (10-30) L 08/11/16 14:55 EBV Capsid Ag IgG Ab >750.0 U/mL (0.0-21.9) H 08/09/16 11:27 EBV Nuclear Ag Ab Titer 245.0 U/mL (0.0-21.9) H 08/09/16 11:27 - Microbiology Findings Microbiology Findings: Microbiology, Last 48 Hours 08/13/16 10:30 Sputum Culture - Preliminary Sputum Gram Negative Lavell 08/13/16 22:00 Urine Culture - Final Urine,Clean Catch No growth. - Diagnostic Findings Chest x-ray: report reviewed, image reviewed - Clinical Findings Intake & Output: Intake & Output 08/15/16 08/15/16 08/16/16 15:59 23:59 07:59 Intake Total 638 / 638 667 / 667 0 / 0 Output Total 300 / 300 1000 / 1000 750 / 750 Balance 338 / 338 -333 / -333 -750 / -750 Weight 115.212 kg
[2016-08-16 07:07] LABS: Albumin 2.2 g/dL (3.5-5.0); Albumin/Globulin Ratio 0.5 (1.1-2.2); Bilirubin,Direct 0.2 mg/dL (0.0-0.5); Bilirubin,Indirect 0.1 mg/dL (0.0-1.2); Bilirubin,Total 0.3 mg/dL (0.2-1.2); Globulin 4.4 g/dL (2.4-3.5); Total Protein 6.6 g/dL (6.0-8.3)
[2016-08-16] MEDS ORDERED: Aminoglycoside Consult 1 EACH MC ONE (08:10)
--- NOTE | 2016-08-16 08:13 | ECHO - Doppler Report ---
Echocardiogram Name: Jhonny Junior Date of Study: 08/15/2016 Date: 1970 Ht: 53.0 in Medical Record#: [id number] Age: 46 Wt: 254.0 lb Gender: Male BSA: 1.89 Order #: [id number] Location: [facility] Room #: 1 Reading Physician: Best Raymundo MD, [facility] Aquatic Facility Manager: Amber Christian Ordering Physician: Aaron Rocha DO Primary Physician: None Indications: Heart failure, Pulmonary edema Impressions: Very poor echo windows. Only minimal information can be obtained from this study. Grossly normal LV size. LV systolic function was not adequately assessed. Visualized segments appear to have normal contractility. Grossly normal RV size and function on limited views. Valvular function was not adequately assessed. At least mild pulmonary hypertension which was not well assessed on this study. Findings: Study Quality * Very poor echo windows. Only minimal information can be obtained from this study. ECG Findings * Normal sinus rhythm. Left Ventricle * Grossly normal LV size. LV systolic function was not adequately assessed. Visualized segments appear to have normal contractility. Right Ventricle * Grossly normal RV size and function on limited views. Left Atrium * Left atrium is not well visualized. Right Atrium * Right atrium is not well visualized. Aorta * Normally sized aortic root. Pericardium * There is no pericardial effusion present. IVC * The IVC was not visualized. Mitral Valve * Normal mitral valve structure. * No significant valvular dysfunction on limited assessment. Trace MR noted. Aortic Valve * Aortic valve not well visualized. * Function not adequately assessed. Tricuspid Valve * Tricuspid valve not well visualized. * Mild tricuspid regurgitation. * At least mild pulmonary hypertension which was not well assessed on this study. Pulmonic Valve * Pulmonic valve not well visualized. * Normal pulmonic valve function. History Congestive Heart Failure 05/25/2016 a Previous Echo was performed. Measurements: BP: 105/ 72 2D Normal Values RVIDd: 2.30 cm IVSd: 1.00 cm 0.6 - 1.0 cm LVIDd: 3.50 cm 3.7 - 5.6 cm LVPWd: 1.00 cm 0.6 - 1.1 cm LVIDs: 2.60 cm 1.5 - 3.6 cm AO: 2.70 cm < 4.0 cm %FS: 25.70 cm >25 % Tricuspid Valve TV Regurg Peak Grad: 33.00mmHg TV Regurg Peak Julius: 2.89m/sec Updated by Best Raymundo MD, [facility] on 08/16/2016 8:08:59 AM electronically signed on 08/16/2016 8:09:47 AM with status of Final
[2016-08-16] MEDS ORDERED: methylPREDNISolone 125 MG/2 ML VIAL IVP ONE (08:53)
[2016-08-16] MEDS: Budesonide/Formoterol 160/4.5 MDI IH SCH ×2 (09:00→21:00)
[2016-08-16 09:19] LABS: Basophils % 0.5 %; Eosinophils # 0.8 K/mcL (0.0-0.6); Eosinophils % 10.3 %; Hematocrit 31.3 % (37.5-50.1); Immature Granulocytes % 1.2 % (0-4); Immature Platelets 3.2 % (1.1-6.1); Lymphocytes # 1.1 K/mcL (0.6-4.6); Lymphocytes % 14.6 %; Mean Corpuscular HGB Conc 30.4 g/dL (31.6-35.5); Mean Corpuscular Hemoglobin 25.5 pg (28.0-33.3); Mean Corpuscular Volume 84.1 fL (83.0-100.0); Mean Platelet Volume 9.3 fL (9.4-12.4); Monocytes # 1.1 K/mcL (0.0-1.3); Neutrophils # 4.4 K/mcL (1.6-8.9); Platelet Count 262 K/mcL (140-400); Red Blood Count 3.72 M/mcL (4.19-5.50); Red Cell Distribution Width 16.2 % (11.5-14.5); Segmented Neutrophils % 58.4 %
[2016-08-16 09:21] LABS: Hemoglobin 9.5 g/dL (12.9-16.9)
[2016-08-16] MEDS: Chlorhexidine Rinse 15 ML MOUTHWASH MM SCH ×2 (09:42→21:23)
[2016-08-16] MEDS: Pantoprazole 40 MG VIAL IVP SCH (09:42)
[2016-08-16] MEDS: *HR* Heparin 5,000 UNIT/ML VIAL SQ SCH ×3 (09:42→23:19)
[2016-08-16] MEDS: Folic Acid 1 MG TABLET PO SCH (09:43)
[2016-08-16] MEDS: Gentamicin Oint 15 GM TUBE TP SCH ×2 (09:46→21:23)
[2016-08-16] MEDS: Nystatin POWDER 30 GM BOTTLE TP SCH ×2 (09:47→21:25)
[2016-08-16] MEDS ORDERED: Furosemide 20 MG/2 ML VIAL IVP SCH (10:15)
--- NOTE | 2016-08-16 10:20 | Nephrology Consult Note ---
Date of Encounter: 08/16/16 Time of Encounter: 10:00 Assessment and Plan (1) Acute kidney injury Current Visit: Yes Status: Acute STEPHANIE most likely related to sepsis, nephrotoxins-Vanco and Zosyn. Positve urine Eos. AIN-at present not candidate for renal bx or steroids with active infection. Recommend possibilty of getting off Vanco and Zosyn and placing on less nephrotoxic medications. Will continue to monitor. Urine output 1500cc. HD currently not indicated. History of Present Illness - Reason for Consult Acute Kidney Injury - History of Present Illness Mr. 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 Sepsis in setting of acute on chronic bilateral lower extremity cellulitis, CT concerning for osteomyelitis. Started on Vancomycin and Meropenum. On day 3, Meropenum stopped and started on Zosyn per ID. Renal fct prior to admission was normal. Creatinine since admission continually elevating, today 2.38, urine Eos 10. Urology placed velasquez catheter for hidden penis. Renal US essentially negative, poor quality due to body habitus. Sister is present and is legal guardian. She denies any prior history of renal insufficiency. Past Med Surg Social Fam HX - Past Medical History Medical history: CHF, dementia, GERD, GI bleed, myocardial infarction, venous stasis, other Psychiatric history: no psych history, other - Past Surgical History Surgical History: cholecystectomy, other - Social History Smoking Status: Never smoker Smokeless Tobacco Status: No Alcohol use: none Drug use: none - Family History Father History Unknown: Yes Living Status: Still Living Hx Family Cardiac Disorders: Yes (htn) Hx Family Cancer: Yes (thyroid ca) Mother Living Status: Hx Family Cardiac Disorders: Yes (chf) Hx Family Respiratory Disorders: Yes (pneumonia) Hx Family Endocrine Disorder: Yes (diabetic) Medications and Allergies Multivitamin [Multi-Day Vitamins] 1 each PO DAILY 01/07/16 [History] Ascorbic Acid [Vitamin C] 500 mg PO DAILY #30 tablet 01/09/16 [Rx] Folic Acid 0.4 mg PO DAILY #30 tablet 01/09/16 [Rx] Ferrous Gluconate 324 mg PO BID #60 tablet 02/15/16 [Rx] Lactobacillus [Culturelle] 1 each PO BID cap.sprink 06/01/16 [Rx] Potassium Chloride 20 meq PO DAILY #30 tab.er.prt 06/01/16 [Rx] Zinc Sulfate 220 mg PO DAILY capsule 06/01/16 [Rx] Acetaminophen [Acetaminophen ER] 650 mg PO Q6H PRN 06/14/16 [History] Albuterol Sulfate [Ventolin Hfa] 2 puff IH Q4H 06/14/16 [History] Docusate [Colace] 100 mg PO BID PRN 06/14/16 [History] Famotidine [Heartburn Prevention] 20 mg PO BID 06/14/16 [History] Albuterol Neb [Proventil Neb] 2.5 mg IH Q2H PRN 08/08/16 [History] Collagenase Oint [Santyl] 1 appl TP AD 08/08/16 [History] Furosemide [Lasix] 40 mg PO BID 08/08/16 [History] Gentamicin Oint [Garamycin] 1 appl TP AD 08/08/16 [History] Ipratropium/Albuterol Neb [Duoneb] 3 ml IH QID 08/08/16 [History] Oxygen 2 l NS AD 08/08/16 [History] Allergies cephalexin [From Keflex] Allergy (Verified 08/08/16 12:30) See Comments Pt unsure of reaction. chlorpromazine [From Thorazine] Allergy (Verified 08/08/16 12:30) See Comments [place] Allergy (Verified 08/08/16 12:30) See Comments [place] Allergy (Uncoded 08/08/16 12:30) See Comments Review of Systems All Systems: reviewed and no additional remarkable complaints except as stated Exam - Vital Signs Vital signs: Initial Vital Signs Temp Pulse Resp BP Pulse Ox 98.5 F 88 22 120/21 90 08/08/16 11:47 08/08/16 11:47 08/08/16 11:47 08/08/16 11:47 08/08/16 11:47 Vital Signs - Last 8 Hours Temp Pulse Resp BP Pulse Ox 08/16/16 07:38 18 114/62 100 08/16/16 07:19 97.2 F L 08/16/16 07:00 63 18 125/82 100 08/16/16 06:00 63 16 109/67 100 08/16/16 05:58 16 100 08/16/16 05:00 83 16 128/84 100 08/16/16 04:48 66 08/16/16 04:35 97.9 F 08/16/16 04:26 16 115/85 100 08/16/16 04:00 66 16 111/89 100 08/16/16 03:00 61 16 132/90 95 08/16/16 02:23 17 119/82 97 Intake and Output 08/15/16 08/16/16 08/16/16 23:59 07:59 15:59 Intake Total 667 / 667 0 / 0 100 / 100 Output Total 1000 / 1000 925 / 925 Balance -333 / -333 -925 / -925 100 / 100 Intake: IV Fluids Zosyn 3.375 GM In 65 / Dextrose 5% (Minibag+) 100 ML 100 ML @ 25 mls/hr IVPB Q8HR [facility] Rx#: [id number] Tube Feeding 402 / 402 Free Water Intake Amount 200 / 200 0 / 0 100 / 100 Output: Catheter 1000 / 1000 925 / 925 Other: Weight 115.212 kg Blood Glucose* 92 Patient Weight 08/16/16 23:59 Weight 115.212 kg - General Appearance General appearance: well-developed, well-nourished, appears started age EENT: mucous membranes moist Neck: no JVD Respiratory: rhonchi Cardiology: regular rate, regular rhythm Additional Comments: anasarca Gastrointestinal: hypoactive bowel sounds Integumentary: no rash, warm and dry Results - Lab Results 08/16/16 09:05 08/16/16 04:30 Most recent lab results ABG pH 7.29 pH Units (7.32-7.45) L 08/16/16 04:20 ABG pCO2 61 mmHg (35-45) H 08/16/16 04:20 ABG pO2 74 mmHg (85-104) L 08/16/16 04:20 ABG HCO3 29.3 mEQ/L (21-27) H 08/16/16 04:20 ABG O2 Saturation 93 % (95-98) L 08/16/16 04:20 Calcium 8.4 mg/dL (8.6-10.8) L 08/16/16 04:30 Phosphorus 7.1 mg/dL (2.3-4.7) H 08/16/16 04:30 Magnesium 2.5 mg/dL (1.6-2.6) 08/16/16 04:30 Urine Creatinine 46 mg/dL 08/14/16 04:03 Urine Sodium < 20.0 mEq/L 08/14/16 04:03 Consult Discharge Plan - Plan Referrals: NO,PCP [Primary Care Provider] -
--- NOTE | 2016-08-16 11:38 | Infectious Disease Progress No ---
Date of Encounter: 08/16/16 Time of Encounter: 11:35 - Assessment and Plan (1) Sepsis Current Visit: Yes Status: Resolved The patient had fever with Tmax of 102,tachycardia, leukocytosis. The patient also had hypotension, but this is likely secondary to propofol. Resolved. The patient has been afebrile since initial fever. Tachycardia and hypotension have resolved. Blood cultures drawn 08/08/16 are negative x 2 sets. Qualifiers: Sepsis type: sepsis due to unspecified organism Qualified Code(s): A41.9 - Sepsis, unspecified organism (2) Leukocytosis Current Visit: Yes Status: Resolved WBC elevated at 15 thousand with 12% monocytes on admission. Likely secondary to lower extremity cellulitis. Resolved. Qualifiers: Leukocytosis type: unspecified Qualified Code(s): D72.829 - Elevated white blood cell count, unspecified (3) Cellulitis Current Visit: No Status: Acute Location: Left knee. Although there is marked erythema to the BLE, I do not believe this is cellulitis, but likely more related to venous stasis. I do believe there were some cellulitic skin changes overlying the left knee, which have resolved. Causative organism MRSA per wound culture, but we need to consider polymicrobial infection as well. Likely secondary to venous stasis ulcers. Left knee x-ray completed shows no joint effusion. Blood cultures drawn 08/08/16 in the ED are negative x 2 sets. Podiatry consulted for wound care recommendations. The patient received 8 days of IV Vancomycin. Due to his elevated troughs, it is likely that he will remain therapeutic through per pharmacy, which would be 10 days. Vancomycin discontinued 08/15/16. Received 8 days of Zosyn plus two days of Meropenem prior (10 days total). Zosyn discontinued per the primary team today. Antibiotics have been discontinued. No further recommendations from the ID team. Will sign off. Please re-consult if needed. Qualifiers: Site of cellulitis: extremity Site of cellulitis of extremity: lower extremity Laterality: unspecified laterality Qualified Code(s): L03.119 - Cellulitis of unspecified part of limb (4) Acute on chronic respiratory failure with hypoxemia Current Visit: Yes Status: Acute Etiology likely multifactorial--> fluid overload, JOHN, hypoventilation syndrome. Currently intubated. Failed CPAP trial previously due to sedation. Sedation has been turned off. Sputum culture grew MDR Acinetobacter --> ?colonization. Repeat CXR shows no evidence of infiltrate/PNA. Agree with discontinuing Zosyn. Continue O2 and supportive care as outlined by the pulmonology team. (5) Cardiopulmonary arrest with successful resuscitation Current Visit: Yes Status: Resolved 08/10/16. Likely secondary to hypoxia. Received 2 rounds of CPR and ACLS drugs before ROSC. (6) Ulcers of both lower legs Current Visit: No Status: Acute Likely secondary to venous stasis. Several large venous stasis ulcers noted to the lower portion of the bilateral lower extremities. Clinically, they do not appear infected. There is no foul odor at this time. Podiatry and wound care consulted for wound care recommendations. Consider transfer to tertiary care center for aggressive wound care and plastic surgery consultation. (7) STEPHANIE (acute kidney injury) Current Visit: Yes Status: Acute Serum creatinine initially elevated on admission, but resolved. New STEPHANIE onset five days ago. Likely secondary to vanc toxicity. Vanc currently on hold and patient being monitored by the pharmacy team. Serum creatinine worse today 1.44>1.81>2.08>2.24>2.38. Nephrology consulted. Await their recommendations. (8) Transaminitis Current Visit: Yes Status: Acute Improved. Levels are trending down. Abdominal UTS negative. Hepatitis profile negative. EBV antibodies positive. GI consulted. (9) Morbid obesity with BMI of 50.0-59.9, adult Current Visit: Yes Status: Chronic (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 - Subjective Interval history: Patient seen and examined with nursing at the bedside. No acute events noted overnight. Patient remains intubated and on the ventilator, sedation has been stopped in an attempt to wean the vent. He has been off sedation drips since yesterday, but has received a few Fentanyl IV pushes. He remains somewhat sedated. No new issues notes. Patient arousable to verbal stimuli, but does not follow commands or respond to questions. Infect Dis PN-Objective Data - Labs CBC & Chem 7: 08/17/16 03:08 08/17/16 03:08 Labs: Laboratory Results - last 24 hr 08/15/16 08/15/16 08/15/16 10:46 12:00 14:55 WBC RBC Hgb Hct MCV MCH MCHC RDW Plt Count MPV Immature Gran % Seg Neutrophils % Lymphocytes % Monocytes % Eosinophils % Basophils % Neutrophils # Lymphocytes # Monocytes # Eosinophils # Basophils # Immature Plt Fraction ABG pH ABG pCO2 ABG pO2 ABG HCO3 ABG Total CO2 ABG O2 Saturation ABG Base Excess Blood Gas Modality Inspired O2 Sodium 140 Potassium 3.9 Chloride 103 Carbon Dioxide 24 BUN 71 H Creatinine 2.28 H Est GFR ( Amer) 38 L Est GFR (Non-Af Amer) 31 L BUN/Creatinine Ratio 31 H Glucose 90 POC Glucose 97 H Calculated Osmolality 310 H Calcium 8.2 L Ionized Calcium Phosphorus Magnesium Total Bilirubin Direct Bilirubin Indirect Bilirubin AST ALT Alkaline Phosphatase Serum Total Protein Albumin Globulin Albumin/Globulin Ratio Ur Eosinophil Smear 10 H Vancomycin Trough 08/15/16 08/15/16 08/16/16 14:55 23:35 04:20 WBC RBC Hgb Hct MCV MCH MCHC RDW Plt Count MPV Immature Gran % Seg Neutrophils % Lymphocytes % Monocytes % Eosinophils % Basophils % Neutrophils # Lymphocytes # Monocytes # Eosinophils # Basophils # Immature Plt Fraction ABG pH 7.29 L ABG pCO2 61 H ABG pO2 74 L ABG HCO3 29.3 H ABG Total CO2 31.2 H ABG O2 Saturation 93 L ABG Base Excess 1.7 Blood Gas Modality VENT Inspired O2 30 Sodium Potassium Chloride Carbon Dioxide BUN Creatinine Est GFR ( Amer) Est GFR (Non-Af Amer) BUN/Creatinine Ratio Glucose POC Glucose 92 H Calculated Osmolality Calcium Ionized Calcium Phosphorus Magnesium 2.4 Total Bilirubin Direct Bilirubin Indirect Bilirubin AST ALT Alkaline Phosphatase Serum Total Protein Albumin Globulin Albumin/Globulin Ratio Ur Eosinophil Smear Vancomycin Trough 08/16/16 08/16/16 08/16/16 04:30 04:30 09:05 WBC 7.5 RBC 3.72 L Hgb 9.5 L Hct 31.3 L MCV 84.1 MCH 25.5 L MCHC 30.4 L RDW 16.2 H Plt Count 262 MPV 9.3 L Immature Gran % 1.2 Seg Neutrophils % 58.4 Lymphocytes % 14.6 Monocytes % 15.0 Eosinophils % 10.3 Basophils % 0.5 Neutrophils # 4.4 Lymphocytes # 1.1 Monocytes # 1.1 Eosinophils # 0.8 H Basophils # 0.0 Immature Plt Fraction 3.2 ABG pH ABG pCO2 ABG pO2 ABG HCO3 ABG Total CO2 ABG O2 Saturation ABG Base Excess Blood Gas Modality Inspired O2 Sodium 140 Potassium 3.8 Chloride 103 Carbon Dioxide 24 BUN 78 H Creatinine 2.38 H Est GFR ( Amer) 36 L Est GFR (Non-Af Amer) 30 L BUN/Creatinine Ratio 33 H Glucose 92 POC Glucose Calculated Osmolality 313 H Calcium 8.4 L Ionized Calcium 1.14 L Phosphorus 7.1 H Magnesium 2.5 Total Bilirubin 0.3 Direct Bilirubin 0.2 Indirect Bilirubin 0.1 AST 44 H ALT 147 H Alkaline Phosphatase 142 H Serum Total Protein 6.6 Albumin 2.2 L Globulin 4.4 H Albumin/Globulin Ratio 0.5 L Ur Eosinophil Smear Vancomycin Trough 22.2 H* Cultures: Cultures 08/13/16 10:30 Sputum Culture - Final Sputum Acinetobacter saadia/haem MDRO 08/13/16 22:00 Urine Culture - Final Urine,Clean Catch No growth. 08/12/16 01:40 Urine Culture - Final Urine,Clean Catch No growth. 08/09/16 18:24 Wound Culture - Final Other-Specify in Comments Methicillin Resistant S.aureus Serology 08/15/16 08/14/16 08/13/16 Range/Units 12:00 04:03 22:00 Ur Specimen Adequacy Urine Color Yellow (Yellow) Urine Clarity Cloudy A (Clear) Urine pH 6.0 (5.0-8.0) pH Units Ur Specific [place] 1.023 (1.010-1.025) Urine Protein 100 H (Neg-Trace) mg/dL Urine Glucose (UA) Normal (Normal) mg/dL Urine Ketones Negative (Negative) mg/dL Urine Blood Moderate H (Negative) Urine Nitrite Negative (Negative) Urine Bilirubin Negative (Negative) Urine Urobilinogen Normal (Normal) mg/dL Ur Leukocyte Esterase Moderate H (Negative) Urine Microscopic RBC 5-15 H (0-3) per hpf Urine Microscopic WBC TNTC H (0-3) per hpf Ur Eosinophil Smear 10 H (None Seen) % Ur Squamous Epith Cells Many H (None-Few) per lpf Urine Bacteria None Seen (None-Few) per hpf Hyaline Casts Few (None-Few) per lpf Urine Yeast Few H (None Seen) per hpf Ur Culture Indicated? YES A (NO) Urine Creatinine 46 mg/dL Urine Sodium < 20.0 mEq/L EBV Capsid Ag IgG Ab (0.0-21.9) U/mL EBV Capsid Ag IgM Ab (0.0-43.9) U/mL EBV Early Antigen IgG (0.0-10.9) U/mL EBV Nuclear Ag Ab Titer (0.0-21.9) U/mL Hepatitis A IgM Ab (Nonreactive) Hep Bs Antigen (Nonreactive) Hep B Core IgM Ab (Nonreactive) Hepatitis C Ab Screen (Nonreactive) 08/12/16 08/09/16 08/08/16 Range/Units 01:40 11:27 20:11 Ur Specimen Adequacy See below A Urine Color Yellow (Yellow) Urine Clarity Cloudy A (Clear) Urine pH 6.0 (5.0-8.0) pH Units Ur Specific [place] 1.023 (1.010-1.025) Urine Protein 30 H (Neg-Trace) mg/dL Urine Glucose (UA) Normal (Normal) mg/dL Urine Ketones Negative (Negative) mg/dL Urine Blood Small H (Negative) Urine Nitrite Negative (Negative) Urine Bilirubin Negative (Negative) Urine Urobilinogen Normal (Normal) mg/dL Ur Leukocyte Esterase Moderate H (Negative) Urine Microscopic RBC 3-5 H (0-3) per hpf Urine Microscopic WBC 15-30 H (0-3) per hpf Ur Eosinophil Smear (None Seen) % Ur Squamous Epith Cells Many H (None-Few) per lpf Urine Bacteria Few (None-Few) per hpf Hyaline Casts None Seen (None-Few) per lpf Urine Yeast Few H (None Seen) per hpf Ur Culture Indicated? YES A (NO) Urine Creatinine mg/dL Urine Sodium mEq/L EBV Capsid Ag IgG Ab >750.0 H (0.0-21.9) U/mL EBV Capsid Ag IgM Ab <10.0 (0.0-43.9) U/mL EBV Early Antigen IgG <5.0 (0.0-10.9) U/mL EBV Nuclear Ag Ab Titer 245.0 H (0.0-21.9) U/mL Hepatitis A IgM Ab Nonreactive (Nonreactive) Hep Bs Antigen Nonreactive (Nonreactive) Hep B Core IgM Ab Nonreactive (Nonreactive) Hepatitis C Ab Screen Nonreactive (Nonreactive) - Impressions Impressions Chest X-Ray 08/16/16 06:56 IMPRESSION: Stable support lines and tubes. Stable cardiomegaly and mild pulmonary edema, which may reflect congestive heart failure. D/ 08/16/2016 07:22:43 Liss Espinal MD / buck Interpreting Provider: Liss Espinal MD Exam - Constitutional Vitals: Temp Pulse Resp BP Pulse Ox 96.4 F L 56 18 119/79 100 08/16/16 11:23 08/16/16 08:00 08/16/16 11:11 08/16/16 11:11 08/16/16 11:11 General appearance: morbidly obese, no acute distress, no febrile - Head Head exam: Present: atraumatic, normal inspection, normocephalic - Eye Eye exam: Present: normal appearance, PERRL Pupils: Present: normal accommodation Additional comments: Unable to assess EOMs. - ENT ENT exam: Present: mucous membranes moist - Neck Neck exam: Present: normal inspection - Respiratory Respiratory exam: Present: rhonchi (Throughout). Absent: rales, respiratory distress, wheezes Additional comments: O2 via the ventilator. - Cardiovascular Cardiovascular exam: Present: RRR, +S1, +S2 - GI/Abdominal GI/Abdominal exam: Present: distended (obese), firm, normal bowel sounds. Absent: tenderness Additional comments: Edwards catheter noted to be draining clear yellow urine. OG tube with tube feeds infusing at this time. - Extremities Exam Extremities exam: Present: pedal edema (1+ bilateral feet). Absent: joint swelling, tenderness Additional comments: BLE dressings C/D/I. Erythema to the left knee resolved. Linear wounds noted to the anterior knee without purulent drainage or erythema. - Neurological Exam Neurological exam: Present: altered (Drowsy, opens eyes to verbal stimuli but does not follow commands.) - Skin Skin exam: Present: dry, intact, normal color, warm - Additional findings Additional findings: Triple lumen PICC line noted to the RUE with transparent dressing C/D/I. Consult Discharge Plan - Plan Referrals: NO,PCP [Primary Care Provider] - - Attending Attestation I examined this patient and my medical decision-making was reviewed with the NURSE TECH/PA/Advanced Practice Nurse/Resident Physician. I agree with the documented findings, disposition and treatment plan as described except to the extent set forth below.
[2016-08-16] MEDS ORDERED: Furosemide 20 MG/2 ML VIAL IVP ONE (13:18)
[2016-08-16] MEDS ORDERED: Desitin (Zinc Oxide) 56 GM TUBE TP PRN (20:21)
[2016-08-16] MEDS ORDERED: *HR* LORazepam 2 MG/ML VIAL ONE (20:28)
[2016-08-16] MEDS: *HR* LORazepam 2 MG/ML VIAL IVP PRN (20:30)
[2016-08-16] MEDS ORDERED: *HR* Alteplase (Cathflo) 2 MG VIAL IVP ONE (23:10)
[2016-08-17] MEDS: *HR* LORazepam 2 MG/ML VIAL IVP PRN ×2 (00:44→04:16)
[2016-08-17] MEDS: *HR* FentaNYL (PF) 100 MCG/2 ML VIAL IVP PRN (01:12)
[2016-08-17 03:22] LABS: Basophils % 0.4 %; Eosinophils % 0.1 %; Hematocrit 34.2 % (37.5-50.1); Hemoglobin 10.4 g/dL (12.9-16.9); Immature Granulocytes % 4.5 % (0-4); Lymphocytes # 0.8 K/mcL (0.6-4.6); Lymphocytes % 12.3 %; Mean Corpuscular HGB Conc 30.4 g/dL (31.6-35.5); Mean Corpuscular Hemoglobin 25.5 pg (28.0-33.3); Mean Corpuscular Volume 83.8 fL (83.0-100.0); Monocytes # 0.2 K/mcL (0.0-1.3); Monocytes % 2.4 %; Neutrophils # 5.4 K/mcL (1.6-8.9); Platelet Count 290 K/mcL (140-400); Red Blood Count 4.08 M/mcL (4.19-5.50); Red Cell Distribution Width 16.3 % (11.5-14.5); Segmented Neutrophils % 80.3 %
[2016-08-17] MEDS: Ipratropium/Albuterol Neb 3 ML IH SCH ×4 (03:51→20:52)
[2016-08-17] MEDS: Lacri-Lube 3.5 GM TUBE BOTH EYES SCH ×4 (03:51→16:02)
[2016-08-17 06:38] LABS: Albumin 2.5 g/dL (3.5-5.0); Albumin/Globulin Ratio 0.6 (1.1-2.2); Bilirubin,Total 0.3 mg/dL (0.2-1.2); Calcium 8.9 mg/dL (8.6-10.8); Globulin 4.5 g/dL (2.4-3.5); Potassium 4.1 mEq/L (3.5-4.5)
[2016-08-17] MEDS ORDERED: Furosemide 20 MG/2 ML VIAL IVP ONE ×2 (06:58→13:07)
[2016-08-17 07:40] LABS: ABG Base Excess 1.3 mEq/L (-2.0 to 3.0); ABG HCO3 28.3 mEQ/L (21-27); ABG Oxygen Saturation 94 % (95-98); ABG PCO2 55 mmHg (35-45); ABG PH 7.32 pH Units (7.32-7.45); ABG PO2 76 mmHg (85-104); Blood Gas FiO2 30 %
--- NOTE | 2016-08-17 07:50 | Pulmonology Progress Note ---
<Dereck Navarro W - Last Filed: 08/17/16 10:50> Date of Encounter: 08/17/16 Objective PUL Vital signs: Last Vital Signs Temp 96.2 F L 08/17/16 07:50 Pulse 65 08/17/16 08:00 Resp 18 08/17/16 08:00 BP 159/88 08/17/16 08:00 Pulse Ox 100 08/17/16 08:00 Ventilator Settings Ventilator Settings: Ventilator Settings, Last 8 Hours Ventilator Mode A/C Ventilator Mode A/C Ventilator Mode A/C Ventilator Mode A/C Ventilator Mode A/C Ventilator Mode A/C Ventilator Mode A/C Ventilator Mode A/C Ventilator Mode A/C Ventilator Mode A/C Ventilator Mode A/C Ventilator Tidal Volume 450 Setting Ventilator Tidal Volume 450 Setting Ventilator Tidal Volume 450 Setting Ventilator Tidal Volume 450 Setting Ventilator Tidal Volume 450 Setting Ventilator Tidal Volume 450 Setting Ventilator Tidal Volume 450 Setting Ventilator Tidal Volume 450 Setting Ventilator Tidal Volume 450 Setting Ventilator Tidal Volume 450 Setting Ventilator Tidal Volume 450 Setting Ventilator Respiratory Rate 18 Setting Ventilator Respiratory Rate 18 Setting Ventilator Respiratory Rate 18 Setting Ventilator Respiratory Rate 18 Setting Ventilator Respiratory Rate 18 Setting Ventilator Respiratory Rate 18 Setting Ventilator Respiratory Rate 18 Setting Ventilator Respiratory Rate 18 Setting Ventilator Respiratory Rate 18 Setting Ventilator Respiratory Rate 18 Setting Ventilator Respiratory Rate 18 Setting Actual Respiratory Rate 18 Actual Respiratory Rate 18 Actual Respiratory Rate 18 Actual Respiratory Rate 18 Actual Respiratory Rate 18 Actual Respiratory Rate 18 Actual Respiratory Rate 18 Actual Respiratory Rate 18 Actual Respiratory Rate 18 Actual Respiratory Rate 18 Positive End Expiratory 5 Pressure Positive End Expiratory 5 Pressure Positive End Expiratory 5 Pressure Positive End Expiratory 5 Pressure Positive End Expiratory 5 Pressure Positive End Expiratory 5 Pressure Positive End Expiratory 5 Pressure Positive End Expiratory 5 Pressure Positive End Expiratory 5 Pressure Positive End Expiratory 5 Pressure Positive End Expiratory 5 Pressure Peak Inspiratory Airway 47 Pressure Peak Inspiratory Airway 39 Pressure Peak Inspiratory Airway 37 Pressure Peak Inspiratory Airway 37 Pressure Peak Inspiratory Airway 37 Pressure Peak Inspiratory Airway 31 Pressure Peak Inspiratory Airway 49 Pressure Peak Inspiratory Airway 48 Pressure Peak Inspiratory Airway 44 Pressure Peak Inspiratory Airway 41 Pressure Results - Laboratory Findings CBC and BMP: 08/17/16 03:08 08/17/16 03:08 ABG ABG pH 7.32 pH Units (7.32-7.45) 08/17/16 04:20 ABG pCO2 55 mmHg (35-45) H 08/17/16 04:20 ABG pO2 76 mmHg (85-104) L 08/17/16 04:20 ABG O2 Saturation 94 % (95-98) L 08/17/16 04:20 PT/INR, D-dimer PT 14.0 Seconds (9.4-12.1) H 08/08/16 21:17 Abnormal lab findings: Abnormal lab results RBC 4.08 M/mcL (4.19-5.50) L 08/17/16 03:08 Hgb 10.4 g/dL (12.9-16.9) L 08/17/16 03:08 Hct 34.2 % (37.5-50.1) L 08/17/16 03:08 MCH 25.5 pg (28.0-33.3) L 08/17/16 03:08 MCHC 30.4 g/dL (31.6-35.5) L 08/17/16 03:08 RDW 16.3 % (11.5-14.5) H 08/17/16 03:08 Immature Gran % 4.5 % (0-4) H 08/17/16 03:08 Nucleated RBCs/100 WBC 0.2 /100 WBC (0) H 08/09/16 11:27 Large Platelets Present (Not Present) A 08/13/16 03:32 Polychromasia 1+ (Not Present) A 08/13/16 03:32 Hypochromasia Present (Not Present) A 08/13/16 03:32 Poikilocytosis 1+ (Not Present) A 08/13/16 03:32 Anisocytosis 1+ (Not Present) A 08/08/16 13:55 Microcytosis Present (Not Present) A 08/13/16 03:32 Ovalocytes 1+ (Not Present) A 08/13/16 03:32 PT 14.0 Seconds (9.4-12.1) H 08/08/16 21:17 ABG pCO2 55 mmHg (35-45) H 08/17/16 04:20 ABG pO2 76 mmHg (85-104) L 08/17/16 04:20 ABG HCO3 28.3 mEQ/L (21-27) H 08/17/16 04:20 ABG Total CO2 30.0 mEq/L (20-26) H 08/17/16 04:20 ABG O2 Saturation 94 % (95-98) L 08/17/16 04:20 BUN 86 mg/dL (8-26) H 08/17/16 03:08 Creatinine 2.48 mg/dL (0.72-1.25) H 08/17/16 03:08 Est GFR ( Amer) 34 (> 60) L 08/17/16 03:08 Est GFR (Non-Af Amer) 28 (> 60) L 08/17/16 03:08 BUN/Creatinine Ratio 35 (6-26) H 08/17/16 03:08 Glucose 139 mg/dL (70-99) H 08/17/16 03:08 POC Glucose 155 (58-89) H 08/16/16 23:22 Calculated Osmolality 326 (280-300) H 08/17/16 03:08 Ionized Calcium 1.14 mmol/L (1.15-1.35) L 08/16/16 04:30 Phosphorus 7.1 mg/dL (2.3-4.7) H 08/16/16 04:30 ALT 119 Units/L (0-55) H 08/17/16 03:08 Alkaline Phosphatase 137 Units/L (38-126) H 08/17/16 03:08 Albumin 2.5 g/dL (3.5-5.0) L 08/17/16 03:08 Globulin 4.5 g/dL (2.4-3.5) H 08/17/16 03:08 Albumin/Globulin Ratio 0.6 (1.1-2.2) L 08/17/16 03:08 Prealbumin 8.0 mg/dL (18.0-45.0) L 08/14/16 04:00 Ur Specimen Adequacy See below A 08/12/16 01:40 Urine Clarity Cloudy (Clear) A 08/13/16 22:00 Urine Protein 100 mg/dL (Neg-Trace) H 08/13/16 22:00 Urine Blood Moderate (Negative) H 08/13/16 22:00 Ur Leukocyte Esterase Moderate (Negative) H 08/13/16 22:00 Urine Microscopic RBC 5-15 per hpf (0-3) H 08/13/16 22:00 Urine Microscopic WBC TNTC per hpf (0-3) H 08/13/16 22:00 Ur Eosinophil Smear 10 % (None Seen) H 08/15/16 12:00 Ur Squamous Epith Cells Many per lpf (None-Few) H 08/13/16 22:00 Urine Yeast Few per hpf (None Seen) H 08/13/16 22:00 Ur Culture Indicated? YES (NO) A 08/13/16 22:00 Vancomycin Trough 22.2 mcg/mL (10-20) H* 08/16/16 04:30 Acetaminophen < 1.0 mcg/mL (10-30) L 08/11/16 14:55 EBV Capsid Ag IgG Ab >750.0 U/mL (0.0-21.9) H 08/09/16 11:27 EBV Nuclear Ag Ab Titer 245.0 U/mL (0.0-21.9) H 08/09/16 11:27 - Microbiology Findings Microbiology Findings: Microbiology, Last 48 Hours 08/13/16 10:30 Sputum Culture - Final Sputum Acinetobacter saadia/haem MDRO 08/13/16 22:00 Urine Culture - Final Urine,Clean Catch No growth. - Clinical Findings Intake & Output: Intake & Output 08/16/16 08/17/16 08/17/16 23:59 07:59 15:59 Intake Total 778 / 778 262 / 262 Output Total 1050 / 1050 400 / 400 Balance -272 / -272 -138 / -138 Weight 111.4 kg Consult Discharge Plan - Plan Referrals: NO,PCP [Primary Care Provider] - - Attending Attestation I examined this patient and my medical decision-making was reviewed with the INTERNATIONAL SPECIALIST/PA/Advanced Practice Nurse/Resident Physician. I agree with the documented findings, disposition and treatment plan as described except to the extent set forth below. Patient seen and examined at bedside Labs, radiology, chart personally reviewed. All lines examined without evidence of infection. 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 agitated overnight recieved boluses of ativan; calmer now and awake today. Pulm: acceptable Oxygenation on vent. CPAP trial today planned. Formal SBT complicated by baseline mental status but if patient appears comfortable at end of CPAP trial with acceptable oxygenation plan on extubation. High risk for reintubation as patient does not tolerate PAP mask (which ideally we could liberate to) will d/w HKPOA regarding post extubation plans and if reintubation/ trach would be acceptable outcome. Cards: MAP > 60 . s/p Cardiac Arrest ECHO results notable for preserved EF% but otherwise poor windows. cont to monitor. Cont to diurese for pulmonary edema ( approx 3L UOP yesterday) FEN-GI:GI prophylaxis given.cont enteral nutrition. Renal:: worsening STEPHANIE multifactorial including high VANC trough and hypotension and possibly AIN offending agents have been stopped. Would stop Iv steroids. Nephrology following no indication for HD at this time. ID: sepsis s/t presumed cellulitis.?aspiration pna completed ABx. Sputum culture + for acinetobacter suspect colonization a view also held by the ID service who is following. After a large watery bowel movement yesterday concern for C Diff however toxin was (-). Heme/Onc: DVT prophylaxis given/ Stable chronic anemia. Endo: glucose monitored Integ/MSK: b/l stasis dermatitis/cellulitis. cont skin care per ICU protocol CODE: Full. <Barron Husain - Last Filed: 08/17/16 16:19> Date of Encounter: 08/17/16 Time of Encounter: 07:50 Assessment and Plan (1) Acute on chronic respiratory failure with hypoxemia Current Visit: Yes Status: Acute patient intubated 08/10 due to hypoxemia and hypercapnia likely secondary to chronic respiratory failure secondary to cor pulmonale and OHS as well as pulmonary edema/vascular congestion no episodes of desaturation overnight successful CPAP trial today 08/17 - successfully extubated 08/17 to OR, oxygen saturation >98% completed total of 7 days of Vanc and Zosyn sputum culture 08/13 grew Acinetobacter baumannii MDR, ID agrees likely colonization7 continue scheduled duonebs and steroids failed CPAP yesterday, has been off sedation and will continue weaning parameters (2) Acute on chronic respiratory failure with hypercapnia Current Visit: Yes Status: Acute improving, acute on chronic hypercapnia noncompliant with BiPAP prior to intubation plan as above (3) STEPHANIE (acute kidney injury) Current Visit: Yes Status: Acute continues to worsen, Cr 2.48 (2.38) likely mulitifactorial with sepsis in the setting of elevated vancomycin and suspected AIN - FENa 0.7% - Vanc trough remains elevated 22.2 -appreciate pharmacy's assistance with Vancomycin dosing suspected AIN with urine eosinophilia and peripheral eosinophilia Nephrology has been consulted and will follow any recommendations renal ultrasound 08/14 did not show any acute abnormalities will continue to monitor strict I/Os (4) Sepsis Current Visit: Yes Status: Resolved resolved, does not meed SIRS criteria - leukocytosis resolved - remains afebrile with stable vitals - lactate was normal 1.1 MRSA wound culture (08/09) blood cultures x2 (08/08) NGTD sputum culture (08/13) Acinetobacter baumannii MDR but suspect colonization, will await IDs recommendations PICC placed for detention antibiotics completed 7 days of antibiotics, Vancomycin and Zosyn Qualifiers: Sepsis type: sepsis due to unspecified organism Qualified Code(s): A41.9 - Sepsis, unspecified organism (5) Chronic wound of extremity Current Visit: No Status: Chronic cellulitic changes to bilateral lower extremity chronic venous stasis MRSA positive wound contact precautions continue wound care L knee x-ray shows no joint effusion Infectious Disease and Wound Care/Podiatry have been consulted, recommendations appreciated (6) Cellulitis Current Visit: No Status: Acute plan as above Qualifiers: Site of cellulitis: extremity Site of cellulitis of extremity: lower extremity Laterality: unspecified laterality Qualified Code(s): L03.119 - Cellulitis of unspecified part of limb (7) AIN (acute interstitial nephritis) Current Visit: Yes Status: Acute worsening STEPHANIE peripheral and urine eosinophilia to suggest AIN - suspect related to beta-lactam use which has been stopped Nephrology consulted and appreciate recommendations - not a candidate for renal bx or steroids - patient received a dose of IV solumedrol AVOID nephrotoxins antibiotic regimen completed 08/15 (8) Bacterial pneumonia Current Visit: Yes Status: Acute emesis noted during intubation concern for aspiration pneumonia?? completed 7 days of anaaerobic coverage (received 1 day of Meropenem prior to switching to Zosyn) sputum culture 08/13 grew acinetobacter saadia, likely colonization (9) Chronic anemia Current Visit: Yes Status: Chronic likely anemia of chronic disease remains stable at 10.4 (9.5) required transfusion Hgb as low as 3.4 in the past 01/07/2016 (10) Cardiopulmonary arrest with successful resuscitation Current Visit: Yes Status: Resolved cardiac arrest s/p intubation 08/10 patient vomited --> bradycardia --> asystole successful resuscitation after 2 rounds of CPR and 1 EPI before ROSC continue to monitor neurologic and cardiopulmonary status ECHO 08/15 difficult exam, poor windows, grossly normal LV & RV size and function , normal valvular function continue diurese for pulm edema (11) Transaminitis Current Visit: Yes Status: Resolved significantly improved and nearly resolved - AST 27 (44) - ALT 119 (147) no evidence of jaundice or scleral icterus GI consulted and recommendations appreciated unclear etiology, consider possible shock liver from hypotension EBV IgG positive antibodies and negative IgM, suspect from prior exposure APAP level is <1 continue to hold Tylenol or any hepatic toxic medicationsno evidence of shock liver negative hepatitis panel no abnormalities on the liver ultrasound, however, limited due to patient comfort (12) Morbid obesity with BMI of 50.0-59.9, adult Current Visit: Yes Status: Chronic secondary to Prader Willi Syndrome Nutrition consulted - tube feeds at 65 with 200 free water GI prophylaxis with IV Protonix (13) 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 (14) Protein calorie malnutrition Current Visit: Yes Status: Acute manager cable consulted tube feeds at goal 65 continue feeds (15) Hypoalbuminemia Current Visit: Yes Status: Acute continue tube feeds (16) DVT prophylaxis Current Visit: No Status: Acute heparin subq for DVT prophylaxis W[employer]ING [employer]: off sedation, agitated last night and needed Ativan, awake and alert wanting the ETT out Pulm: acute on chronic respiratory failure that is multifactorial, successful CPAP today >60 min, successfully extubated to OR 08/17 Cardio: relatively stable, BPs stable with MAPs maintained >60, CXR did not show any acute changes, ECHO notable for preserved EF but poor windows. Will continue diuresis for pulm edema, 3L UOP yesterday FEN-GI: net cumulative 14 L since admission, IV lasix with appropriate UOP 3L yesterday, tube feeds at goal, GI prophylaxis Renal: UOP improving with lasix, worsening STEPHANIE possibly prerenal from heart failure vs. Vanc toxicity vs. AIN, continue to monitor, goal -1-1.5L net output daily Heme/Onc: DVT prophylaxis, Heparin SQ ID: cellulitis of chronic venous stasis ulcers, ID on board, wound culture +MRSA , sputum culture +Acinetobacter baumannii MDR ID agrees that likely colonization , water bowel movement yesterday, C. diff negative Endo: blood glucose monitored Lines: PICC, all lines checked and no evidence of infections Skin: skin care per nursing routine care, wound care for LE Lytes: continue to monitor and replete PRN Subjective Principal diagnosis: Respiratory failure, sepsis, cellulitis Interval history: Patient continues to be off sedation. Reports of agitation last night. He was pulling sheets off and tossing his pillow on the ground. Given Ativan for symptoms. He is awake and alert, follows simple commands. Continues to be mildly agitated. BPs have remained stable, no additional Hydralazine needed last night for hypertension and bradycardia. C. diff toxin negative. Objective PUL Vital signs: Last Vital Signs Temp 96.1 F L 08/17/16 05:27 Pulse 70 08/17/16 07:00 Resp 18 08/17/16 07:00 BP 124/81 08/17/16 07:00 Pulse Ox 97 08/17/16 07:00 General appearance: agitated, appears uncomfortable, other (morbidly obese with typical Prader Willi features, opens eyes to voice and follows simple commands) Eyes: nonicteric ENT: oropharynx moist Neck: supple Effort: other (mechanical ventilation with good symmetrical chest rise) Auscultation: bilateral: other (coarse breath sounds) Cardiovascular: regular rate and rhythm Gastrointestinal: normoactive bowel sounds, soft, non-tender, non-distended Integumentary: erythema (improved), decubitus ulcer (improving, chronic venous stasis ulcers to bilateral LE with cellulitic changes, L left extends from ankle to lower 1/3 thigh, R leg extends ankle to knee; diffuse excoriations to bilateral LE) Extremities: anasarca (chronic), other (difficult to palpate pulses, wounds with serous drainage, non-odorous, oval wound to the mid right anterior singh, oval wound to lateral lower right leg extended posterior, stellate wound to the left lower leg that is nearly circumferential, ABDs placed on left knee) Musculoskeletal: ROM normal (moves all 4 extremities) non-focal exam (moves 4 extremities without difficulty), pupils equal and round , unable to assess due to mental status PICC in right upper arm no signs of infection around the lines Ventilator Settings Ventilator Settings: Ventilator Settings, Last 8 Hours Ventilator Mode A/C Ventilator Mode A/C Ventilator Mode A/C Ventilator Mode A/C Ventilator Mode A/C Ventilator Mode A/C Ventilator Mode A/C Ventilator Mode A/C Ventilator Mode A/C Ventilator Mode A/C Ventilator Mode A/C Ventilator Mode A/C Ventilator Tidal Volume 450 Setting Ventilator Tidal Volume 450 Setting Ventilator Tidal Volume 450 Setting Ventilator Tidal Volume 450 Setting Ventilator Tidal Volume 450 Setting Ventilator Tidal Volume 450 Setting Ventilator Tidal Volume 450 Setting Ventilator Tidal Volume 450 Setting Ventilator Tidal Volume 450 Setting Ventilator Tidal Volume 450 Setting Ventilator Tidal Volume 450 Setting Ventilator Tidal Volume 450 Setting Ventilator Respiratory Rate 18 Setting Ventilator Respiratory Rate 18 Setting Ventilator Respiratory Rate 18 Setting Ventilator Respiratory Rate 18 Setting Ventilator Respiratory Rate 18 Setting Ventilator Respiratory Rate 18 Setting Ventilator Respiratory Rate 18 Setting Ventilator Respiratory Rate 18 Setting Ventilator Respiratory Rate 18 Setting Ventilator Respiratory Rate 18 Setting Ventilator Respiratory Rate 18 Setting Ventilator Respiratory Rate 18 Setting Actual Respiratory Rate 18 Actual Respiratory Rate 18 Actual Respiratory Rate 18 Actual Respiratory Rate 18 Actual Respiratory Rate 18 Actual Respiratory Rate 18 Actual Respiratory Rate 18 Actual Respiratory Rate 18 Actual Respiratory Rate 18 Actual Respiratory Rate 18 Actual Respiratory Rate 18 Positive End Expiratory 5 Pressure Positive End Expiratory 5 Pressure Positive End Expiratory 5 Pressure Positive End Expiratory 5 Pressure Positive End Expiratory 5 Pressure Positive End Expiratory 5 Pressure Positive End Expiratory 5 Pressure Positive End Expiratory 5 Pressure Positive End Expiratory 5 Pressure Positive End Expiratory 5 Pressure Positive End Expiratory 5 Pressure Positive End Expiratory 5 Pressure Peak Inspiratory Airway 37 Pressure Peak Inspiratory Airway 37 Pressure Peak Inspiratory Airway 37 Pressure Peak Inspiratory Airway 31 Pressure Peak Inspiratory Airway 49 Pressure Peak Inspiratory Airway 48 Pressure Peak Inspiratory Airway 44 Pressure Peak Inspiratory Airway 41 Pressure Peak Inspiratory Airway 42 Pressure Peak Inspiratory Airway 40 Pressure Peak Inspiratory Airway 43 Pressure Results - Laboratory Findings CBC and BMP: 08/17/16 03:08 08/17/16 03:08 ABG ABG pH 7.32 pH Units (7.32-7.45) 08/17/16 04:20 ABG pCO2 55 mmHg (35-45) H 08/17/16 04:20 ABG pO2 76 mmHg (85-104) L 08/17/16 04:20 ABG O2 Saturation 94 % (95-98) L 08/17/16 04:20 PT/INR, D-dimer PT 14.0 Seconds (9.4-12.1) H 08/08/16 21:17 Abnormal lab findings: Abnormal lab results RBC 4.08 M/mcL (4.19-5.50) L 08/17/16 03:08 Hgb 10.4 g/dL (12.9-16.9) L 08/17/16 03:08 Hct 34.2 % (37.5-50.1) L 08/17/16 03:08 MCH 25.5 pg (28.0-33.3) L 08/17/16 03:08 MCHC 30.4 g/dL (31.6-35.5) L 08/17/16 03:08 RDW 16.3 % (11.5-14.5) H 08/17/16 03:08 Immature Gran % 4.5 % (0-4) H 08/17/16 03:08 Nucleated RBCs/100 WBC 0.2 /100 WBC (0) H 08/09/16 11:27 Large Platelets Present (Not Present) A 08/13/16 03:32 Polychromasia 1+ (Not Present) A 08/13/16 03:32 Hypochromasia Present (Not Present) A 08/13/16 03:32 Poikilocytosis 1+ (Not Present) A 08/13/16 03:32 Anisocytosis 1+ (Not Present) A 08/08/16 13:55 Microcytosis Present (Not Present) A 08/13/16 03:32 Ovalocytes 1+ (Not Present) A 08/13/16 03:32 PT 14.0 Seconds (9.4-12.1) H 08/08/16 21:17 ABG pCO2 55 mmHg (35-45) H 08/17/16 04:20 ABG pO2 76 mmHg (85-104) L 08/17/16 04:20 ABG HCO3 28.3 mEQ/L (21-27) H 08/17/16 04:20 ABG Total CO2 30.0 mEq/L (20-26) H 08/17/16 04:20 ABG O2 Saturation 94 % (95-98) L 08/17/16 04:20 BUN 86 mg/dL (8-26) H 08/17/16 03:08 Creatinine 2.48 mg/dL (0.72-1.25) H 08/17/16 03:08 Est GFR ( Amer) 34 (> 60) L 08/17/16 03:08 Est GFR (Non-Af Amer) 28 (> 60) L 08/17/16 03:08 BUN/Creatinine Ratio 35 (6-26) H 08/17/16 03:08 Glucose 139 mg/dL (70-99) H 08/17/16 03:08 POC Glucose 155 (58-89) H 08/16/16 23:22 Calculated Osmolality 326 (280-300) H 08/17/16 03:08 Ionized Calcium 1.14 mmol/L (1.15-1.35) L 08/16/16 04:30 Phosphorus 7.1 mg/dL (2.3-4.7) H 08/16/16 04:30 ALT 119 Units/L (0-55) H 08/17/16 03:08 Alkaline Phosphatase 137 Units/L (38-126) H 08/17/16 03:08 Albumin 2.5 g/dL (3.5-5.0) L 08/17/16 03:08 Globulin 4.5 g/dL (2.4-3.5) H 08/17/16 03:08 Albumin/Globulin Ratio 0.6 (1.1-2.2) L 08/17/16 03:08 Prealbumin 8.0 mg/dL (18.0-45.0) L 08/14/16 04:00 Ur Specimen Adequacy See below A 08/12/16 01:40 Urine Clarity Cloudy (Clear) A 08/13/16 22:00 Urine Protein 100 mg/dL (Neg-Trace) H 08/13/16 22:00 Urine Blood Moderate (Negative) H 08/13/16 22:00 Ur Leukocyte Esterase Moderate (Negative) H 08/13/16 22:00 Urine Microscopic RBC 5-15 per hpf (0-3) H 08/13/16 22:00 Urine Microscopic WBC TNTC per hpf (0-3) H 08/13/16 22:00 Ur Eosinophil Smear 10 % (None Seen) H 08/15/16 12:00 Ur Squamous Epith Cells Many per lpf (None-Few) H 08/13/16 22:00 Urine Yeast Few per hpf (None Seen) H 08/13/16 22:00 Ur Culture Indicated? YES (NO) A 08/13/16 22:00 Vancomycin Trough 22.2 mcg/mL (10-20) H* 08/16/16 04:30 Acetaminophen < 1.0 mcg/mL (10-30) L 08/11/16 14:55 EBV Capsid Ag IgG Ab >750.0 U/mL (0.0-21.9) H 08/09/16 11:27 EBV Nuclear Ag Ab Titer 245.0 U/mL (0.0-21.9) H 08/09/16 11:27 - Microbiology Findings Microbiology Findings: Microbiology, Last 48 Hours 08/13/16 10:30 Sputum Culture - Final Sputum Acinetobacter saadia/haem MDRO 08/13/16 22:00 Urine Culture - Final Urine,Clean Catch No growth. - Clinical Findings Intake & Output: Intake & Output 08/16/16 08/16/16 08/17/16 15:59 23:59 07:59 Intake Total 567 / 567 778 / 778 262 / 262 Output Total 925 / 925 1050 / 1050 250 / 250 Balance -358 / -358 -272 / -272 Weight 111.4 kg
[2016-08-17] MEDS: *HR* Heparin 5,000 UNIT/ML VIAL SQ SCH ×3 (08:14→23:38)
[2016-08-17] MEDS: Pantoprazole 40 MG VIAL IVP SCH (08:14)
--- NOTE | 2016-08-17 08:34 | Nephrology Progress Note ---
Date of Encounter: 08/17/16 Time of Encounter: 08:20 - Assessment and Plan (1) Acute kidney injury Current Visit: Yes Status: Acute STEPHANIE most likely related to sepsis, nephrotoxins-Vanco and Zosyn. Positve urine Eos. AIN-at present not candidate for renal bx or steroids with active infection. Vanco and Zosyn stopped. Avoid nephrotoxins. Will continue to monitor. Creat 2.48. Urine output 2900cc. HD currently not indicated. Subjective Principal diagnosis: Respiratory failure, sepsis, cellulitis Interval history: Intubated. alert, focusing. Staff staes attempt to extubate today. Objective - Vital Signs Vital signs: Vital Signs Temp Pulse Resp BP Pulse Ox 08/17/16 08:00 60 18 159/88 100 08/17/16 07:50 96.2 F L 18 96 08/17/16 07:00 70 18 124/81 97 08/17/16 06:00 70 18 129/80 99 08/17/16 05:27 96.1 F L 08/17/16 05:18 18 97 08/17/16 05:00 64 18 159/89 97 08/17/16 04:00 64 18 150/79 100 08/17/16 03:52 18 100 08/17/16 03:26 61 08/17/16 03:00 64 18 177/101 98 08/17/16 02:00 64 18 136/79 95 08/17/16 01:00 71 18 151/93 95 08/17/16 00:19 18 99 08/17/16 00:00 63 18 130/80 100 08/16/16 23:48 96.3 F L 08/16/16 23:33 64 08/16/16 23:00 65 18 109/65 93 08/16/16 22:00 74 19 137/81 95 08/16/16 21:01 18 95 08/16/16 21:00 71 18 133/78 96 08/16/16 20:40 96.7 F L 08/16/16 20:00 88 18 136/84 94 08/16/16 19:38 18 94 08/16/16 19:00 68 18 140/90 94 08/16/16 18:00 69 18 124/79 94 08/16/16 17:10 18 131/83 94 08/16/16 17:00 64 18 131/83 95 08/16/16 16:00 61 18 155/92 96 08/16/16 15:25 18 159/87 94 08/16/16 15:00 67 18 159/87 98 08/16/16 14:00 60 18 148/100 99 08/16/16 13:31 18 146/111 98 08/16/16 13:00 64 18 152/88 98 08/16/16 12:00 65 18 128/84 98 08/16/16 11:23 96.4 F L 08/16/16 11:11 18 119/79 100 08/16/16 11:00 61 18 119/79 100 08/16/16 10:00 64 18 128/89 100 08/16/16 09:00 60 18 114/92 100 Intake and Output 08/16/16 08/17/16 08/17/16 23:59 07:59 15:59 Intake Total 778 / 778 262 / 262 Output Total 1050 / 1050 400 / 400 Balance -272 / -272 -138 / -138 Intake: Oral 0 / 0 Tube Feeding 678 / 678 262 / 262 Free Water 100 / 100 Output: Catheter 1050 / 1050 400 / 400 Other: Stool Size Moderate Stool Consistency soft Stool Color Brown Weight 111.4 kg Blood Glucose* 155 - General Appearance General appearance: Present: well-developed, well-nourished, appears started age , obese EENT: Present: mucous membranes moist Neck: Present: no JVD Respiratory: Present: rhonchi Cardiology: Present: regular rate, regular rhythm Additional Comments: anasarca Gastrointestinal: Present: hypoactive bowel sounds, no guarding Integumentary: Present: no rash, warm and dry Psychiatric: Present: mood/affect appropriate, cooperative - Lab 08/17/16 03:08 08/17/16 03:08 Most recent lab results ABG pH 7.32 pH Units (7.32-7.45) 08/17/16 04:20 ABG pCO2 55 mmHg (35-45) H 08/17/16 04:20 ABG pO2 76 mmHg (85-104) L 08/17/16 04:20 ABG HCO3 28.3 mEQ/L (21-27) H 08/17/16 04:20 ABG O2 Saturation 94 % (95-98) L 08/17/16 04:20 Calcium 8.9 mg/dL (8.6-10.8) 08/17/16 03:08 Phosphorus 7.1 mg/dL (2.3-4.7) H 08/16/16 04:30 Magnesium 2.5 mg/dL (1.6-2.6) 08/16/16 04:30 Urine Creatinine 46 mg/dL 08/14/16 04:03 Urine Sodium < 20.0 mEq/L 08/14/16 04:03 Consult Discharge Plan - Plan Referrals: NO,PCP [Primary Care Provider] -
[2016-08-17] MEDS: Gentamicin Oint 15 GM TUBE TP SCH ×2 (09:37→21:36)
[2016-08-17] MEDS: Chlorhexidine Rinse 15 ML MOUTHWASH MM SCH (09:37)
[2016-08-17] MEDS: Nystatin POWDER 30 GM BOTTLE TP SCH ×2 (09:37→21:36)
[2016-08-17] MEDS: Budesonide/Formoterol 160/4.5 MDI IH SCH ×2 (11:19→20:53)
--- NOTE | 2016-08-17 14:00 | Electrocardiograph Report ---
[address] [address] Test Date: 2016-08-16 Pat Name: Jhonny Junior Department: 109 Room: [facility] Gender: M Order Booker: DONNA : 1970 Requested By: Anjum Schneider Order Number: [id number] Reading MD: Best Raymundo MD Measurements Intervals [place] Rate: 58 P: 58 AR: 133 QRS: 32 QRSD: 93 T: 26 QT: 441 QTc: 438 Interpretive Statements SINUS BRADYCARDIA NONSPECIFIC ST \T\ T WAVE ABNORMALITY Electronically Signed On 08-17-2016 13:58:34 EDT by Best Raymundo MD
[2016-08-17] MEDS: Folic Acid 1 MG TABLET PO SCH (16:01)
[2016-08-17 18:10] LABS: Calcium 8.9 mg/dL (8.6-10.8); Potassium 3.6 mEq/L (3.5-4.5)
[2016-08-18] MEDS: Ipratropium/Albuterol Neb 3 ML IH SCH ×4 (04:23→22:34)
[2016-08-18 04:56] LABS: Basophils # 0.1 K/mcL (0.0-0.2); Basophils % 0.5 %; Eosinophils # 0.3 K/mcL (0.0-0.6); Hematocrit 32.4 % (37.5-50.1); Hemoglobin 9.5 g/dL (12.9-16.9); Immature Granulocytes % 1.2 % (0-4); Lymphocytes # 1.3 K/mcL (0.6-4.6); Lymphocytes % 13.3 %; Mean Corpuscular HGB Conc 29.3 g/dL (31.6-35.5); Mean Corpuscular Hemoglobin 25.7 pg (28.0-33.3); Mean Corpuscular Volume 87.6 fL (83.0-100.0); Mean Platelet Volume 9.6 fL (9.4-12.4); Monocytes # 1.5 K/mcL (0.0-1.3); Monocytes % 15.2 %; Neutrophils # 6.5 K/mcL (1.6-8.9); Platelet Count 279 K/mcL (140-400); Red Cell Distribution Width 16.6 % (11.5-14.5); Segmented Neutrophils % 66.8 %
[2016-08-18 05:03] LABS: Albumin 2.6 g/dL (3.5-5.0); Albumin/Globulin Ratio 0.6 (1.1-2.2); Bilirubin,Total 0.2 mg/dL (0.2-1.2); Globulin 4.4 g/dL (2.4-3.5); Magnesium 2.4 mg/dL (1.6-2.6); Potassium 4.3 mEq/L (3.5-4.5)
[2016-08-18 05:48] LABS: Phosphorous 7.8 mg/dL (2.3-4.7)
--- NOTE | 2016-08-18 06:32 | Pulmonology Progress Note ---
<Dereck Navarro W - Last Filed: 08/18/16 09:56> Date of Encounter: 08/18/16 Objective PUL Vital signs: Last Vital Signs Temp 97.6 F 08/18/16 08:00 Pulse 86 08/18/16 08:00 Resp 26 08/18/16 08:00 BP 117/99 08/18/16 08:00 Pulse Ox 99 08/18/16 08:00 Results - Laboratory Findings CBC and BMP: 08/18/16 04:20 08/18/16 04:20 ABG ABG pH 7.32 pH Units (7.32-7.45) 08/17/16 04:20 ABG pCO2 55 mmHg (35-45) H 08/17/16 04:20 ABG pO2 76 mmHg (85-104) L 08/17/16 04:20 ABG O2 Saturation 94 % (95-98) L 08/17/16 04:20 PT/INR, D-dimer PT 14.0 Seconds (9.4-12.1) H 08/08/16 21:17 Abnormal lab findings: Abnormal lab results RBC 3.70 M/mcL (4.19-5.50) L 08/18/16 04:20 Hgb 9.5 g/dL (12.9-16.9) L 08/18/16 04:20 Hct 32.4 % (37.5-50.1) L 08/18/16 04:20 MCH 25.7 pg (28.0-33.3) L 08/18/16 04:20 MCHC 29.3 g/dL (31.6-35.5) L 08/18/16 04:20 RDW 16.6 % (11.5-14.5) H 08/18/16 04:20 Monocytes # 1.5 K/mcL (0.0-1.3) H 08/18/16 04:20 Nucleated RBCs/100 WBC 0.2 /100 WBC (0) H 08/09/16 11:27 Large Platelets Present (Not Present) A 08/13/16 03:32 Polychromasia 1+ (Not Present) A 08/13/16 03:32 Hypochromasia Present (Not Present) A 08/13/16 03:32 Poikilocytosis 1+ (Not Present) A 08/13/16 03:32 Anisocytosis 1+ (Not Present) A 08/08/16 13:55 Microcytosis Present (Not Present) A 08/13/16 03:32 Ovalocytes 1+ (Not Present) A 08/13/16 03:32 PT 14.0 Seconds (9.4-12.1) H 08/08/16 21:17 ABG pCO2 55 mmHg (35-45) H 08/17/16 04:20 ABG pO2 76 mmHg (85-104) L 08/17/16 04:20 ABG HCO3 28.3 mEQ/L (21-27) H 08/17/16 04:20 ABG Total CO2 30.0 mEq/L (20-26) H 08/17/16 04:20 ABG O2 Saturation 94 % (95-98) L 08/17/16 04:20 BUN 88 mg/dL (8-26) H 08/18/16 04:20 Creatinine 2.45 mg/dL (0.72-1.25) H 08/18/16 04:20 Est GFR ( Amer) 35 (> 60) L 08/18/16 04:20 Est GFR (Non-Af Amer) 29 (> 60) L 08/18/16 04:20 BUN/Creatinine Ratio 36 (6-26) H 08/18/16 04:20 POC Glucose 93 (58-89) H 08/17/16 23:39 Calculated Osmolality 324 (280-300) H 08/18/16 04:20 Phosphorus 7.8 mg/dL (2.3-4.7) H 08/18/16 04:20 ALT 93 Units/L (0-55) H 08/18/16 04:20 Albumin 2.6 g/dL (3.5-5.0) L 08/18/16 04:20 Globulin 4.4 g/dL (2.4-3.5) H 08/18/16 04:20 Albumin/Globulin Ratio 0.6 (1.1-2.2) L 08/18/16 04:20 Prealbumin 8.0 mg/dL (18.0-45.0) L 08/14/16 04:00 Ur Specimen Adequacy See below A 08/12/16 01:40 Urine Clarity Cloudy (Clear) A 08/13/16 22:00 Urine Protein 100 mg/dL (Neg-Trace) H 08/13/16 22:00 Urine Blood Moderate (Negative) H 08/13/16 22:00 Ur Leukocyte Esterase Moderate (Negative) H 08/13/16 22:00 Urine Microscopic RBC 5-15 per hpf (0-3) H 08/13/16 22:00 Urine Microscopic WBC TNTC per hpf (0-3) H 08/13/16 22:00 Ur Eosinophil Smear 10 % (None Seen) H 08/15/16 12:00 Ur Squamous Epith Cells Many per lpf (None-Few) H 08/13/16 22:00 Urine Yeast Few per hpf (None Seen) H 08/13/16 22:00 Ur Culture Indicated? YES (NO) A 08/13/16 22:00 Vancomycin Trough 22.2 mcg/mL (10-20) H* 08/16/16 04:30 Acetaminophen < 1.0 mcg/mL (10-30) L 08/11/16 14:55 EBV Capsid Ag IgG Ab >750.0 U/mL (0.0-21.9) H 08/09/16 11:27 EBV Nuclear Ag Ab Titer 245.0 U/mL (0.0-21.9) H 08/09/16 11:27 - Microbiology Findings Microbiology Findings: Microbiology, Last 48 Hours 08/13/16 10:30 Sputum Culture - Final Sputum Acinetobacter saadia/haem MDRO - Clinical Findings Intake & Output: Intake & Output 08/17/16 08/18/16 08/18/16 23:59 07:59 15:59 Intake Total 770 / 770 480 / 480 480 / 480 Output Total 700 / 700 400 / 400 100 / 100 Balance 70 / 70 80 / 80 380 / 380 Weight 110.54 kg Consult Discharge Plan - Plan Referrals: NO,PCP [Primary Care Provider] - - Attending Attestation I examined this patient and my medical decision-making was reviewed with the MEDICAL RECORD ASSISTANT/PA/Advanced Practice Nurse/Resident Physician. I agree with the documented findings, disposition and treatment plan as described except to the extent set forth below. Patient seen and examined at bedside Labs, radiology, chart personally reviewed. All lines examined without evidence of infection. 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 awake and alert today. Pulm: acute on chronic respiratory failure now liberated from vent. good O2 sat on minimal O2 via nasal cannula. Goal Sat around 92%. Cont diuresis for pulm edema. NIPPV especially at night if tolerated. Cardio: Stable BP evidence of pulmonary edema cont to diurese. FEN-GI:ADAT - calorie count for excessive caloric (and volume) intake. Nutrition Following. Renal:: worsening STEPHANIE multifactorial including high good UOP. DDx include AIN or ATN from medication effect complicated by hypotension and now likely renal vascular congestion. ID: sepsis s/t presumed cellulitis.?aspiration pna completed ABx completed treatment stable now. Sputum culture + for acinetobacter suspect colonization Heme/Onc: DVT prophylaxis given/ Stable chronic anemia. Endo: glucose monitored Integ/MSK: b/l stasis dermatitis/cellulitis. cont skin care per ICU protocol CODE: Full. Stable for transfer to [facility] for ongoing care. <Barron Husain - Last Filed: 08/18/16 11:28> Date of Encounter: 08/18/16 Time of Encounter: 06:32 Assessment and Plan (1) Acute on chronic respiratory failure with hypoxemia Current Visit: Yes Status: Acute improved, patient intubated 08/10 due to hypoxemia and hypercapnia likely secondary to chronic respiratory failure secondary to cor pulmonale and OHS as well as pulmonary edema/vascular congestion extubated 08/17 currently on 2L with good oxygenation finished total of 7 days of Vanc and Zosyn sputum culture 08/13 grew Acinetobacter baumannii MDR, ID agrees likely colonization continue scheduled duonebs and symbicort (2) Acute on chronic respiratory failure with hypercapnia Current Visit: Yes Status: Acute improving, acute on chronic hypercapnia plan as above (3) STEPHANIE (acute kidney injury) Current Visit: Yes Status: Acute improving, Cr 2.45 likely mulitifactorial with sepsis from ATN vs. AIN from medication effects - FENa 0.7% - Vanc trough remains elevated 22.2 -appreciate pharmacy's assistance with Vancomycin dosing suspected AIN with urine eosinophilia and peripheral eosinophilia Nephrology has been consulted and will follow any recommendations - no indications for hemodialysis - good UOP - 40mg [place] - [place] [id number] since admission renal ultrasound 08/14 did not show any acute abnormalities will continue to monitor strict I/Os, GOAL 1.0 -1.5 L daily output (4) Chronic wound of extremity Current Visit: No Status: Chronic cellulitic changes to bilateral lower extremity chronic venous stasis MRSA positive wound contact precautions continue wound care L knee x-ray shows no joint effusion Infectious Disease and Wound Care/Podiatry have been consulted, recommendations appreciated (5) Cellulitis Current Visit: No Status: Acute plan as above Qualifiers: Site of cellulitis: extremity Site of cellulitis of extremity: lower extremity Laterality: unspecified laterality Qualified Code(s): L03.119 - Cellulitis of unspecified part of limb (6) AIN (acute interstitial nephritis) Current Visit: Yes Status: Acute worsening STEPHANIE peripheral and urine eosinophilia to suggest AIN - suspect related to beta-lactam use which has been stopped Nephrology consulted and appreciate recommendations - not a candidate for renal bx or steroids - patient received a dose of IV solumedrol AVOID nephrotoxins antibiotic regimen completed 08/15 (7) Chronic anemia Current Visit: Yes Status: Chronic likely anemia of chronic disease remains stable at 10.4 (9.5) continue home iron required transfusion Hgb as low as 3.4 in the past 01/07/2016 (8) Morbid obesity with BMI of 50.0-59.9, adult Current Visit: Yes Status: Chronic secondary to Prader Willi Syndrome Nutrition consulted for diet and calorie restriction nursing order placed for strict fluid restriction <1500 no drinks or snacks in between meals weight loss encouraged (9) 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 encourage diet restrictions nutrition consulted (10) Sepsis Current Visit: Yes Status: Resolved resolved, does not meed SIRS criteria - leukocytosis resolved - remains afebrile with stable vitals - lactate was normal 1.1 MRSA wound culture (08/09) blood cultures x2 (08/08) NGTD sputum culture (08/13) Acinetobacter baumannii MDR but suspect colonization, will await IDs recommendations 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 antibiotics completed 7 days of antibiotics, Vancomycin and Zosyn Qualifiers: Sepsis type: sepsis due to unspecified organism Qualified Code(s): A41.9 - Sepsis, unspecified organism (11) Difficulty with insertion of urinary catheter Current Visit: Yes Status: Acute Urology consulted - difficulty placing 14F catheter - velasquez continues to remain in place (12) Cardiopulmonary arrest with successful resuscitation Current Visit: Yes Status: Resolved cardiac arrest s/p intubation 08/10 patient vomited --> bradycardia --> asystole successful resuscitation after 2 rounds of CPR and 1 EPI before ROSC continue to monitor neurologic and cardiopulmonary status ECHO 08/15 difficult exam, poor windows, grossly normal LV & RV size and function , normal valvular function continue diurese for pulm edema (13) DVT prophylaxis Current Visit: No Status: Acute heparin subq for DVT prophylaxis 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, awake and alert Pulm: acute on chronic respiratory failure that is multifactorial, successful extubatoin 08/17, good oxygen on NC, continue diuresis for pulm edema, NIPPV at night if tolerated Cardio: BPs stable, continue diuresis for pulm edema cumilative net + 13L FEN-GI: ADAT, nutrition consulted and nursing order placed for strict fluid restriction <1500 cc, calorie count fr excessive caloric and fluid intake, GI prophylaxis discontinued Renal: good UOP, worsening STEPHANIE possibly from ATN or AIN fro medications and complicated by hypotension, goal -1-1.5L net output daily Heme/Onc: DVT prophylaxis, Heparin SQ, stable anemia ID: cellulitis of chronic venous stasis ulcers, ID on board, wound culture +MRSA , sputum culture +Acinetobacter baumannii MDR ID agrees that likely colonization , water bowel movement yesterday, C. diff negative Endo: blood glucose monitored Lines: PICC and velasquez in place, all lines checked and no evidence of infections Skin: skin care per nursing routine care, wound care for LE Lytes: continue to monitor and replete PRN Subjective Principal diagnosis: Respiratory failure, sepsis, cellulitis Interval history: No acute major events overnight. Patient seen and examined at bedside. Denies any chest pain, shortness of breath, abdominal pain, nause, or vomiting. BM last night and this morning. Continues to ask for coffee or food. Objective PUL Vital signs: Last Vital Signs Temp 97.2 F L 08/18/16 04:00 Pulse 85 08/18/16 06:00 Resp 26 08/18/16 06:00 BP 110/70 08/18/16 06:00 Pulse Ox 99 08/18/16 06:00 General appearance: no acute distress, alert, other (morbidly obese with typical Prader Willi features) Eyes: nonicteric ENT: oropharynx moist Neck: supple Effort: normal Auscultation: bilateral: rhonchi, other (coarse breath sounds) Cardiovascular: regular rate and rhythm Gastrointestinal: normoactive bowel sounds, soft, non-tender Integumentary: erythema (improving), other (improving chronic venous stasis ulcers to bilateral LE with cellulitic changes, L left extends from ankle to lower 1/3 thigh, R leg extends ankle to knee; diffuse excoriations to bilateral LE) Extremities: edema, anasarca (chronic), other (difficult to palpate pulses, wounds with serous drainage, non-odorous, oval wound to the mid right anterior singh, oval wound to lateral lower right leg extended posterior, stellate wound to the left lower leg that is nearly circumferential, ABDs placed on left knee) normal mental status, non-focal exam mood appropriate PICC in right upper arm no signs of infection around the lines Results - Laboratory Findings CBC and BMP: 08/18/16 04:20 08/18/16 04:20 ABG ABG pH 7.32 pH Units (7.32-7.45) 08/17/16 04:20 ABG pCO2 55 mmHg (35-45) H 08/17/16 04:20 ABG pO2 76 mmHg (85-104) L 08/17/16 04:20 ABG O2 Saturation 94 % (95-98) L 08/17/16 04:20 PT/INR, D-dimer PT 14.0 Seconds (9.4-12.1) H 08/08/16 21:17 Abnormal lab findings: Abnormal lab results RBC 3.70 M/mcL (4.19-5.50) L 08/18/16 04:20 Hgb 9.5 g/dL (12.9-16.9) L 08/18/16 04:20 Hct 32.4 % (37.5-50.1) L 08/18/16 04:20 MCH 25.7 pg (28.0-33.3) L 08/18/16 04:20 MCHC 29.3 g/dL (31.6-35.5) L 08/18/16 04:20 RDW 16.6 % (11.5-14.5) H 08/18/16 04:20 Monocytes # 1.5 K/mcL (0.0-1.3) H 08/18/16 04:20 Nucleated RBCs/100 WBC 0.2 /100 WBC (0) H 08/09/16 11:27 Large Platelets Present (Not Present) A 08/13/16 03:32 Polychromasia 1+ (Not Present) A 08/13/16 03:32 Hypochromasia Present (Not Present) A 08/13/16 03:32 Poikilocytosis 1+ (Not Present) A 08/13/16 03:32 Anisocytosis 1+ (Not Present) A 08/08/16 13:55 Microcytosis Present (Not Present) A 08/13/16 03:32 Ovalocytes 1+ (Not Present) A 08/13/16 03:32 PT 14.0 Seconds (9.4-12.1) H 08/08/16 21:17 ABG pCO2 55 mmHg (35-45) H 08/17/16 04:20 ABG pO2 76 mmHg (85-104) L 08/17/16 04:20 ABG HCO3 28.3 mEQ/L (21-27) H 08/17/16 04:20 ABG Total CO2 30.0 mEq/L (20-26) H 08/17/16 04:20 ABG O2 Saturation 94 % (95-98) L 08/17/16 04:20 BUN 88 mg/dL (8-26) H 08/18/16 04:20 Creatinine 2.45 mg/dL (0.72-1.25) H 08/18/16 04:20 Est GFR ( Amer) 35 (> 60) L 08/18/16 04:20 Est GFR (Non-Af Amer) 29 (> 60) L 08/18/16 04:20 BUN/Creatinine Ratio 36 (6-26) H 08/18/16 04:20 POC Glucose 93 (58-89) H 08/17/16 23:39 Calculated Osmolality 324 (280-300) H 08/18/16 04:20 Phosphorus 7.8 mg/dL (2.3-4.7) H 08/18/16 04:20 ALT 93 Units/L (0-55) H 08/18/16 04:20 Albumin 2.6 g/dL (3.5-5.0) L 08/18/16 04:20 Globulin 4.4 g/dL (2.4-3.5) H 08/18/16 04:20 Albumin/Globulin Ratio 0.6 (1.1-2.2) L 08/18/16 04:20 Prealbumin 8.0 mg/dL (18.0-45.0) L 08/14/16 04:00 Ur Specimen Adequacy See below A 08/12/16 01:40 Urine Clarity Cloudy (Clear) A 08/13/16 22:00 Urine Protein 100 mg/dL (Neg-Trace) H 08/13/16 22:00 Urine Blood Moderate (Negative) H 08/13/16 22:00 Ur Leukocyte Esterase Moderate (Negative) H 08/13/16 22:00 Urine Microscopic RBC 5-15 per hpf (0-3) H 08/13/16 22:00 Urine Microscopic WBC TNTC per hpf (0-3) H 08/13/16 22:00 Ur Eosinophil Smear 10 % (None Seen) H 08/15/16 12:00 Ur Squamous Epith Cells Many per lpf (None-Few) H 08/13/16 22:00 Urine Yeast Few per hpf (None Seen) H 08/13/16 22:00 Ur Culture Indicated? YES (NO) A 08/13/16 22:00 Vancomycin Trough 22.2 mcg/mL (10-20) H* 08/16/16 04:30 Acetaminophen < 1.0 mcg/mL (10-30) L 08/11/16 14:55 EBV Capsid Ag IgG Ab >750.0 U/mL (0.0-21.9) H 08/09/16 11:27 EBV Nuclear Ag Ab Titer 245.0 U/mL (0.0-21.9) H 08/09/16 11:27 - Microbiology Findings Microbiology Findings: Microbiology, Last 48 Hours 08/13/16 10:30 Sputum Culture - Final Sputum Acinetobacter saadia/haem MDRO - Clinical Findings Intake & Output: Intake & Output 08/17/16 08/17/16 08/18/16 15:59 23:59 07:59 Intake Total 770 / 770 480 / 480 Output Total 550 / 550 700 / 700 400 / 400 Balance -550 / -550 70 / 70 80 / 80 Weight 110.54 kg
[2016-08-18] MEDS: *HR* Heparin 5,000 UNIT/ML VIAL SQ SCH ×2 (08:16→17:41)
[2016-08-18] MEDS: Folic Acid 1 MG TABLET PO SCH (08:16)
[2016-08-18] MEDS: Pantoprazole 40 MG VIAL IVP SCH (08:16)
[2016-08-18] MEDS: Nystatin POWDER 30 GM BOTTLE TP SCH (08:17)
--- NOTE | 2016-08-18 09:53 | Nephrology Progress Note ---
Date of Encounter: 08/18/16 Time of Encounter: 09:20 - Assessment and Plan (1) Acute kidney injury Current Visit: Yes Status: Acute STEPHANIE most likely related to sepsis, nephrotoxins-Vanco and Zosyn. Positve urine Eos. AIN-at present not candidate for renal bx or steroids with active infection. Vanco and Zosyn stopped. Avoid nephrotoxins. Will continue to monitor. Creat plateaued 2.45. Urine output 1650cc. HD currently not indicated. Will give Lasix 40mg IV x one dose. Subjective Principal diagnosis: Respiratory failure, sepsis, cellulitis Interval history: Extubated, doing well. Objective - Vital Signs Vital signs: Vital Signs Temp Pulse Resp BP Pulse Ox 08/18/16 08:00 97.6 F 86 26 117/99 99 08/18/16 07:00 77 22 114/67 97 08/18/16 06:00 85 26 110/70 99 08/18/16 05:00 86 22 120/85 98 08/18/16 04:10 79 08/18/16 04:00 97.2 F L 79 22 120/75 90 08/18/16 03:00 81 20 118/82 98 08/18/16 02:00 78 10 116/79 100 08/18/16 01:00 83 18 106/77 97 08/18/16 00:29 97.8 F 08/18/16 00:00 80 20 99/73 94 08/17/16 23:42 80 08/17/16 23:00 80 20 108/70 98 08/17/16 22:00 87 20 101/64 92 08/17/16 21:00 83 24 103/69 99 08/17/16 20:57 84 08/17/16 20:53 17 100 08/17/16 20:03 96.6 F L 08/17/16 20:00 84 24 114/74 100 08/17/16 19:00 85 22 122/84 93 08/17/16 18:00 90 20 114/91 100 08/17/16 17:00 89 22 122/79 100 08/17/16 16:21 96 08/17/16 16:13 24 96 08/17/16 16:00 96.3 F L 98 20 122/86 100 08/17/16 15:00 96 22 122/83 100 08/17/16 14:00 95 20 116/71 98 08/17/16 13:40 96 24 134/78 97 08/17/16 13:00 95 26 112/73 95 08/17/16 12:00 97.0 F L 75 30 123/67 95 08/17/16 11:20 29 94 08/17/16 11:00 83 34 127/78 96 08/17/16 10:00 75 18 111/65 100 Intake and Output 08/17/16 08/18/16 08/18/16 23:59 07:59 15:59 Intake Total 770 / 770 480 / 480 480 / 480 Output Total 700 / 700 400 / 400 100 / 100 Balance 70 / 70 80 / 80 380 / 380 Intake: Oral 770 / 770 480 / 480 480 / 480 Output: Catheter 700 / 700 400 / 400 100 / 100 Other: Meal chocolate pudding Breakfast Percent of Meal Consumed 100% Stool Size Large Stool Consistency liquid Stool Color Brown Yellow Weight 110.54 kg Blood Glucose* 92 93 Patient Weight 08/18/16 23:59 Weight 110.54 kg - General Appearance General appearance: Present: well-developed, well-nourished, appears started age , obese EENT: Present: mucous membranes moist Neck: Present: no JVD Respiratory: Present: rhonchi Cardiology: Present: edema, regular rate, regular rhythm Additional Comments: anasarca Gastrointestinal: Present: normoactive bowel sounds, no tenderness Integumentary: Present: warm and dry Psychiatric: Present: mood/affect appropriate, cooperative - Lab 08/18/16 04:20 08/18/16 04:20 Most recent lab results ABG pH 7.32 pH Units (7.32-7.45) 08/17/16 04:20 ABG pCO2 55 mmHg (35-45) H 08/17/16 04:20 ABG pO2 76 mmHg (85-104) L 08/17/16 04:20 ABG HCO3 28.3 mEQ/L (21-27) H 08/17/16 04:20 ABG O2 Saturation 94 % (95-98) L 08/17/16 04:20 Calcium 9.0 mg/dL (8.6-10.8) 08/18/16 04:20 Phosphorus 7.8 mg/dL (2.3-4.7) H 08/18/16 04:20 Magnesium 2.4 mg/dL (1.6-2.6) 08/18/16 04:20 Urine Creatinine 46 mg/dL 08/14/16 04:03 Urine Sodium < 20.0 mEq/L 08/14/16 04:03 Consult Discharge Plan - Plan Referrals: NO,PCP [Primary Care Provider] -
[2016-08-18] MEDS ORDERED: Furosemide 40 MG/4 ML VIAL IVP ONE (09:55)
[2016-08-18] MEDS: Gentamicin Oint 15 GM TUBE TP SCH ×2 (10:53→21:04)
[2016-08-18] MEDS: Budesonide/Formoterol 160/4.5 MDI IH SCH ×2 (11:05→22:37)
[2016-08-18] MEDS: Acetaminophen 325 MG TABLET PO PRN (19:00)
[2016-08-19] MEDS: *HR* Heparin 5,000 UNIT/ML VIAL SQ SCH ×3 (00:21→16:47)
[2016-08-19] MEDS: Acetaminophen 325 MG TABLET PO PRN (00:24)
[2016-08-19 03:37] LABS: Basophils % 0.5 %; Hemoglobin 9.5 g/dL (12.9-16.9)
[2016-08-19 03:38] LABS: Eosinophils # 0.8 K/mcL (0.0-0.6); Eosinophils % 8.8 %; Hematocrit 34.1 % (37.5-50.1); Immature Granulocytes % 1.6 % (0-4); Mean Corpuscular HGB Conc 27.9 g/dL (31.6-35.5); Mean Corpuscular Hemoglobin 24.7 pg (28.0-33.3); Mean Corpuscular Volume 88.8 fL (83.0-100.0); Mean Platelet Volume 9.4 fL (9.4-12.4); Monocytes # 1.1 K/mcL (0.0-1.3); Neutrophils # 5.5 K/mcL (1.6-8.9); Platelet Count 295 K/mcL (140-400); Red Blood Count 3.84 M/mcL (4.19-5.50); Red Cell Distribution Width 16.6 % (11.5-14.5); Segmented Neutrophils % 64.1 %
[2016-08-19 03:57] LABS: Calcium 8.7 mg/dL (8.6-10.8); Potassium 4.3 mEq/L (3.5-4.5)
[2016-08-19 04:03] LABS: Anisocytosis 1+ (Not Present); Hypochromasia Present (Not Present); Microcytosis Present (Not Present); Platelet Clumps Few (Not Present)
[2016-08-19] MEDS: Nystatin POWDER 30 GM BOTTLE TP SCH ×3 (04:29→20:13)
[2016-08-19] MEDS: Ipratropium/Albuterol Neb 3 ML IH SCH ×4 (04:30→21:02)
--- NOTE | 2016-08-19 08:35 | Nephrology Progress Note ---
Date of Encounter: 08/19/16 Time of Encounter: 08:05 - Assessment and Plan (1) Acute kidney injury Current Visit: Yes Status: Acute STEPHANIE most likely related to sepsis, nephrotoxins-Vanco and Zosyn. Positve urine Eos. AIN-at present not candidate for renal bx or steroids with active infection. Vanco and Zosyn stopped. Avoid nephrotoxins. Will continue to monitor. Gave one time dose of Lasix and creat did bump 2.62. Urine output 1500cc. HD currently not indicated. Subjective Principal diagnosis: Respiratory failure, sepsis, cellulitis Interval history: Transferred out of ICU. Alert, converses, answers simple questions appropriately. Feeding self breakfast. Objective - Vital Signs Vital signs: Vital Signs Temp Pulse Resp BP Pulse Ox 08/19/16 07:50 97.6 F 84 16 111/58 98 08/19/16 04:30 20 95 08/19/16 04:03 97.0 F L 87 20 101/79 95 08/19/16 01:00 97.5 F L 83 18 112/88 96 08/18/16 22:34 18 95 08/18/16 20:23 96.7 F L 82 20 108/65 98 08/18/16 19:31 87 08/18/16 19:00 87 20 127/94 96 08/18/16 18:00 84 20 114/78 98 08/18/16 17:00 89 20 125/100 98 08/18/16 16:00 79 16 144/93 98 08/18/16 15:32 16 136/119 97 08/18/16 15:30 97.8 F 81 20 123/85 99 08/18/16 14:00 79 20 129/88 100 08/18/16 13:00 70 18 126/74 100 08/18/16 12:00 80 20 113/80 99 08/18/16 11:40 97.6 F 08/18/16 11:06 16 116/83 100 08/18/16 11:00 78 20 116/83 100 08/18/16 09:00 92 22 107/76 100 Intake and Output 08/18/16 08/19/16 08/19/16 23:59 07:59 15:59 Intake Total 480 / 480 0 / 0 Output Total 200 / 200 Balance 480 / 480 -200 / -200 Intake: Oral 480 / 480 0 / 0 Output: Catheter 200 / 200 Other: Meal Dinner Percent of Meal Consumed 100% Stool Size Moderate Smear Stool Consistency loose loose Stool Color Brown Brown Yellow # Voids 0 # Bowel Movements 1 1 Weight 109.5 kg - General Appearance General appearance: Present: well-developed, well-nourished, appears started age , obese EENT: Present: mucous membranes moist Neck: Present: no JVD Respiratory: Present: rhonchi Cardiology: Present: regular rate, regular rhythm Additional Comments: anasarca Gastrointestinal: Present: normoactive bowel sounds, no tenderness, no guarding Integumentary: Present: warm and dry Psychiatric: Present: mood/affect appropriate, cooperative - Lab 08/19/16 03:28 08/19/16 03:28 Most recent lab results ABG pH 7.32 pH Units (7.32-7.45) 08/17/16 04:20 ABG pCO2 55 mmHg (35-45) H 08/17/16 04:20 ABG pO2 76 mmHg (85-104) L 08/17/16 04:20 ABG HCO3 28.3 mEQ/L (21-27) H 08/17/16 04:20 ABG O2 Saturation 94 % (95-98) L 08/17/16 04:20 Calcium 8.7 mg/dL (8.6-10.8) 08/19/16 03:28 Phosphorus 7.8 mg/dL (2.3-4.7) H 08/18/16 04:20 Magnesium 2.4 mg/dL (1.6-2.6) 08/18/16 04:20 Urine Creatinine 46 mg/dL 08/14/16 04:03 Urine Sodium < 20.0 mEq/L 08/14/16 04:03 Consult Discharge Plan - Plan Referrals: NO,PCP [Primary Care Provider] -
[2016-08-19] MEDS: Folic Acid 1 MG TABLET PO SCH (09:28)
[2016-08-19] MEDS: Budesonide/Formoterol 160/4.5 MDI IH SCH ×2 (11:22→21:02)
[2016-08-19] MEDS: Gentamicin Oint 15 GM TUBE TP SCH ×2 (11:54→20:13)
--- NOTE | 2016-08-19 13:26 | Internal Med Progress Note ---
Date of Encounter: 08/19/16 Time of Encounter: 08:30 - Assessment and plan (1) Respiratory failure Current Visit: Yes Status: Acute Assessment and plan: Improving. Continue oxygen and supportive care. Qualifiers: Chronicity: acute on chronic Respiratory failure complication: hypoxia and hypercapnia Qualified Code(s): J96.21 - Acute and chronic respiratory failure with hypoxia; J96.22 - Acute and chronic respiratory failure with hypercapnia (2) Bilateral lower leg cellulitis Current Visit: No Status: Chronic Assessment and plan: IV abx completed. (3) Chronic wound of extremity Current Visit: No Status: Acute (4) AIN (acute interstitial nephritis) Current Visit: Yes Status: Acute Assessment and plan: Related to IV abx. Appreciate renal input. Continue avoid nephrotoxins and monitor (5) Anemia Current Visit: No Status: Chronic Qualifiers: Anemia type: iron deficiency Iron deficiency anemia type: inadequate dietary iron intake Qualified Code(s): D50.8 - Other iron deficiency anemias (6) 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 (7) Morbid obesity with BMI of 60.0-69.9, adult Current Visit: Yes Status: Chronic (8) Debility, unspecified Current Visit: No Status: Chronic - Subjective Interval history: Mr. Junior is currently admitted for acute respiratory failure s/p intubation and STEPHANIE. He is high risk due to potential for worsening respiratory status. Mr. Junior says he feels OK. Denies pain or dyspnea. No fever or chills. No abd pain. Wounds with dressings in place. - Constitutional Vitals: Temp Pulse Resp BP Pulse Ox 96.5 F L 91 18 104/80 97 08/19/16 12:00 08/19/16 12:00 08/19/16 12:00 08/19/16 12:00 08/19/16 12:00 General appearance: Present: A&O X 1, morbidly obese - Head Head exam: Present: normocephalic - Eye Eye exam: Present: conjuntiva pink - ENT ENT exam: Present: mucous membranes moist - Respiratory Respiratory exam: Present: decreased breath sounds. Absent: rales, respiratory distress, rhonchi, wheezes - Cardiovascular Cardiovascular exam: Present: distant heart sounds, RRR. Absent: tachycardia - GI/Abdominal GI/Abdominal exam: Present: soft. Absent: tenderness - Extremities Exam Extremities exam: Present: warm Additional comments: Dressings intact on wounds. - Neurological Exam Neurological exam: Present: alert - Skin Skin exam: Present: warm. Absent: rash Internal Medicine: Result - Labs CBC & Chem 7: 08/19/16 03:28 08/19/16 03:28 Labs: Short CBC 08/19/16 Range/Units 03:28 WBC 8.5 (4.3-11.1) K/mcL Hgb 9.5 L (12.9-16.9) g/dL Hct 34.1 L (37.5-50.1) % Plt Count 295 (140-400) K/mcL Neutrophils # 5.5 (1.6-8.9) K/mcL BMP 08/19/16 03:28 Sodium 144 Potassium 4.3 Chloride 106 Carbon Dioxide 24 BUN 89 H Creatinine 2.62 H Glucose 94 Calcium 8.7 - ABG Interpretation ABG results: ABG ABG pH 7.32 pH Units (7.32-7.45) 08/17/16 04:20 ABG pCO2 55 mmHg (35-45) H 08/17/16 04:20 ABG pO2 76 mmHg (85-104) L 08/17/16 04:20 ABG O2 Saturation 94 % (95-98) L 08/17/16 04:20 PT/INR, D-dimer PT 14.0 Seconds (9.4-12.1) H 08/08/16 21:17 Consult Discharge Plan - Plan Referrals: NO,PCP [Primary Care Provider] -
[2016-08-20] MEDS: *HR* Heparin 5,000 UNIT/ML VIAL SQ SCH ×3 (01:06→17:31)
[2016-08-20] MEDS: Acetaminophen 325 MG TABLET PO PRN (04:40)
[2016-08-20] MEDS: Ipratropium/Albuterol Neb 3 ML IH SCH ×5 (04:50→21:27)
[2016-08-20 04:57] LABS: Hematocrit 31.9 % (37.5-50.1); Hemoglobin 9.3 g/dL (12.9-16.9); Mean Corpuscular HGB Conc 29.2 g/dL (31.6-35.5); Mean Corpuscular Hemoglobin 25.8 pg (28.0-33.3); Mean Corpuscular Volume 88.6 fL (83.0-100.0); Mean Platelet Volume 9.7 fL (9.4-12.4); Platelet Count 264 K/mcL (140-400); Red Cell Distribution Width 16.8 % (11.5-14.5)
[2016-08-20 05:10] LABS: Albumin 2.6 g/dL (3.5-5.0); Albumin/Globulin Ratio 0.6 (1.1-2.2); Bilirubin,Total 0.3 mg/dL (0.2-1.2); Calcium 9.1 mg/dL (8.6-10.8); Globulin 4.4 g/dL (2.4-3.5); Magnesium 2.3 mg/dL (1.6-2.6); Potassium 4.1 mEq/L (3.5-4.5)
[2016-08-20] MEDS: Gentamicin Oint 15 GM TUBE TP SCH (07:50)
[2016-08-20] MEDS: Nystatin POWDER 30 GM BOTTLE TP SCH ×2 (07:50→21:20)
[2016-08-20] MEDS: Folic Acid 1 MG TABLET PO SCH (07:50)
--- NOTE | 2016-08-20 08:58 | Nephrology Progress Note ---
Date of Encounter: 08/20/16 Time of Encounter: 08:40 - Assessment and Plan (1) Acute kidney injury Current Visit: Yes Status: Acute STEPHANIE most likely related to sepsis, nephrotoxins-Vanco and Zosyn. Positve urine Eos. AIN-at present not candidate for renal bx or steroids with active infection. Vanco and Zosyn stopped. Avoid nephrotoxins. Will continue to monitor. Slight improvement in creat 2.55. Urine output 625cc. HD currently not indicated. Subjective Principal diagnosis: Respiratory failure, sepsis, cellulitis Interval history: Alert, converses, answers simple questions appropriately. Feeding self breakfast. Objective - Vital Signs Vital signs: Vital Signs Temp Pulse Resp BP Pulse Ox 08/20/16 07:57 98 F 86 16 105/70 92 08/20/16 05:28 97.7 F 85 20 101/74 89 08/20/16 04:50 16 92 08/19/16 22:57 97.9 F 92 20 120/84 92 08/19/16 21:02 16 94 08/19/16 16:10 98.3 F 91 16 101/81 100 08/19/16 16:03 18 95 08/19/16 12:00 96.5 F L 91 18 104/80 97 08/19/16 11:22 18 95 Intake and Output 08/19/16 08/20/16 08/20/16 23:59 07:59 15:59 Intake Total 120 / 120 50 / 50 Output Total 425 / 425 325 / 325 Balance -305 / -305 -275 / -275 Intake: Oral 120 / 120 50 / 50 Output: Catheter 425 / 425 325 / 325 Other: Stool Size Moderate Small Stool Consistency soft soft Stool Characteristics Normal for Patient Stool Color Brown # Bowel Movements 1 Weight 110.3 kg Patient Weight 08/20/16 23:59 Weight 110.3 kg - General Appearance General appearance: Present: well-developed, well-nourished, appears started age , obese EENT: Present: mucous membranes moist Neck: Present: no JVD Respiratory: Present: rhonchi Additional Comments: scattered rhonchi, slight exp wheeze throughout. Cardiology: Present: edema, regular rate, regular rhythm Additional Comments: anasarca Gastrointestinal: Present: normoactive bowel sounds, no guarding Integumentary: Present: warm and dry Psychiatric: Present: mood/affect appropriate, cooperative - Lab 08/20/16 04:35 08/20/16 04:35 Most recent lab results ABG pH 7.32 pH Units (7.32-7.45) 08/17/16 04:20 ABG pCO2 55 mmHg (35-45) H 08/17/16 04:20 ABG pO2 76 mmHg (85-104) L 08/17/16 04:20 ABG HCO3 28.3 mEQ/L (21-27) H 08/17/16 04:20 ABG O2 Saturation 94 % (95-98) L 08/17/16 04:20 Calcium 9.1 mg/dL (8.6-10.8) 08/20/16 04:35 Phosphorus 7.8 mg/dL (2.3-4.7) H 08/18/16 04:20 Magnesium 2.3 mg/dL (1.6-2.6) 08/20/16 04:35 Urine Creatinine 46 mg/dL 08/14/16 04:03 Urine Sodium < 20.0 mEq/L 08/14/16 04:03 Consult Discharge Plan - Plan Referrals: NO,PCP [Primary Care Provider] -
--- NOTE | 2016-08-20 10:17 | Internal Med Progress Note ---
Date of Encounter: 08/20/16 Time of Encounter: 09:10 - Assessment and plan (1) Respiratory failure Current Visit: Yes Status: Acute Assessment and plan: Seems little more congested and wheezing today. Last CXR 08/16. Will repeat. May need further swallowing eval (no issues in 06/16). Qualifiers: Chronicity: acute on chronic Respiratory failure complication: hypoxia and hypercapnia Qualified Code(s): J96.21 - Acute and chronic respiratory failure with hypoxia; J96.22 - Acute and chronic respiratory failure with hypercapnia (2) Leukocytosis Current Visit: Yes Status: Acute Assessment and plan: WBC higher today. Currently on no abx. Will repeat CXR. Recheck tomorrow. Qualifiers: Leukocytosis type: other Qualified Code(s): D72.828 - Other elevated white blood cell count (3) Chronic wound of extremity Current Visit: Yes Status: Acute (4) AIN (acute interstitial nephritis) Current Visit: Yes Status: Acute Assessment and plan: Appears to be related to IV abx. Creatinine about the same. Appreciate renal input. (5) Anemia Current Visit: Yes Status: Chronic Assessment and plan: Monitoring H/H. Stable around 9.5. Qualifiers: Anemia type: iron deficiency Iron deficiency anemia type: inadequate dietary iron intake Qualified Code(s): D50.8 - Other iron deficiency anemias (6) Prader-Willi syndrome Current Visit: Yes Status: Chronic Assessment and plan: Supportive care. (7) Morbid obesity with BMI of 60.0-69.9, adult Current Visit: Yes Status: Chronic Assessment and plan: Supportive care. (8) Debility, unspecified Current Visit: Yes Status: Chronic Assessment and plan: Supportive care. D/C planning - sister is planning on taking him home with her. - Subjective Interval history: Mr. Junior is currently admitted for acute respiratory failure s/p intubation and STEPHANIE. He is high risk due to potential for worsening respiratory status. Mr. Junior is eating breakfast. Sister here yesterday and upset about him receiving "[employer]" between meals. She is OK with [employer]. Pt denies issues today. He is hungry and slept OK. Denies CP or SOB. No fever or chills. No worsened cough. - Constitutional Vitals: Temp Pulse Resp BP Pulse Ox 98 F 86 16 105/70 92 05/21/17 07:57 08/20/16 07:57 08/20/16 07:57 08/20/16 07:57 08/20/16 07:57 General appearance: Present: A&O X 1, morbidly obese, answers questions appropriately - Head Head exam: Present: normocephalic - Eye Eye exam: Present: conjuntiva pink, sclera anicteric - ENT ENT exam: Present: mucous membranes moist - Respiratory Respiratory exam: Present: rhonchi, wheezes Additional comments: Diffuse end exp wheeze and some rhonchi in bases. - Cardiovascular Cardiovascular exam: Present: distant heart sounds, RRR. Absent: tachycardia - GI/Abdominal GI/Abdominal exam: Present: soft. Absent: tenderness - Extremities Exam Extremities exam: Present: tenderness, warm Additional comments: Edema present throughout. - Neurological Exam Neurological exam: Present: alert - Skin Skin exam: Present: warm. Absent: rash Additional comments: Dressing intact on lower legs. Internal Medicine: Result - Labs CBC & Chem 7: 08/20/16 04:35 08/20/16 04:35 Labs: Short CBC 08/20/16 Range/Units 04:35 WBC 13.7 H D (4.3-11.1) K/mcL Hgb 9.3 L (12.9-16.9) g/dL Hct 31.9 L (37.5-50.1) % Plt Count 264 (140-400) K/mcL BMP 08/20/16 04:35 Sodium 143 Potassium 4.1 Chloride 105 Carbon Dioxide 25 BUN 84 H Creatinine 2.55 H Glucose 101 H Calcium 9.1 Liver Function 08/20/16 Range/Units 04:35 Total Bilirubin 0.3 (0.2-1.2) mg/dL AST 16 (5-34) Units/L ALT 62 H (0-55) Units/L Alkaline Phosphatase 102 (38-126) Units/L Albumin 2.6 L (3.5-5.0) g/dL - ABG Interpretation ABG results: ABG ABG pH 7.32 pH Units (7.32-7.45) 08/17/16 04:20 ABG pCO2 55 mmHg (35-45) H 08/17/16 04:20 ABG pO2 76 mmHg (85-104) L 08/17/16 04:20 ABG O2 Saturation 94 % (95-98) L 08/17/16 04:20 PT/INR, D-dimer PT 14.0 Seconds (9.4-12.1) H 08/08/16 21:17 Consult Discharge Plan - Plan Referrals: NO,PCP [Primary Care Provider] -
[2016-08-20] MEDS: Budesonide/Formoterol 160/4.5 MDI IH SCH ×2 (10:57→21:27)
[2016-08-21] MEDS: Gentamicin Oint 15 GM TUBE TP SCH ×2 (00:39→09:44)
[2016-08-21] MEDS: *HR* Heparin 5,000 UNIT/ML VIAL SQ SCH ×4 (00:39→17:47)
[2016-08-21] MEDS: Ipratropium/Albuterol Neb 3 ML IH SCH ×4 (03:13→21:28)
[2016-08-21 04:53] LABS: Hematocrit 30.6 % (37.5-50.1); Hemoglobin 8.9 g/dL (12.9-16.9); Mean Corpuscular HGB Conc 29.1 g/dL (31.6-35.5); Mean Corpuscular Hemoglobin 25.6 pg (28.0-33.3); Mean Corpuscular Volume 88.2 fL (83.0-100.0); Mean Platelet Volume 10.3 fL (9.4-12.4); Platelet Count 279 K/mcL (140-400); Red Blood Count 3.47 M/mcL (4.19-5.50); Red Cell Distribution Width 16.6 % (11.5-14.5)
[2016-08-21 04:55] LABS: Calcium 9.1 mg/dL (8.6-10.8); Potassium 4.3 mEq/L (3.5-4.5)
[2016-08-21] MEDS ORDERED: *HR* Dextrose 50 % in Water (Syg) 50 ML SYRINGE IVP PRN (07:58)
[2016-08-21] MEDS ORDERED: Naloxone 0.4 MG/ML INJ IVP PRN (07:58)
[2016-08-21] MEDS ORDERED: Acetaminophen 325 MG TABLET PO PRN (07:58)
[2016-08-21] MEDS ORDERED: D5% in Water 1,000 ML IVC PRN (07:58)
[2016-08-21] MEDS ORDERED: Famotidine 20 MG TABLET PO SCH (07:58)
[2016-08-21] MEDS ORDERED: Desitin (Zinc Oxide) 56 GM TUBE TP PRN (07:58)
[2016-08-21] MEDS ORDERED: Dextrose Gel 15 GM PO PRN ×2 (07:58)
--- NOTE | 2016-08-21 09:25 | Nephrology Progress Note ---
Date of Encounter: 08/21/16 Time of Encounter: 08:25 - Assessment and Plan (1) Acute kidney injury Current Visit: Yes Status: Acute STEPHANIE most likely related to sepsis, nephrotoxins-Vanco and Zosyn. Positve urine Eos. AIN-at present not candidate for renal bx or steroids with active infection. Vanco and Zosyn stopped. Avoid nephrotoxins. Will continue to monitor. Slight improvement in creat 2.68. plateaued. Urine output 975cc. HD currently not indicated. Subjective Principal diagnosis: Respiratory failure, sepsis, cellulitis Interval history: Alert, converses, answers simple questions appropriately. Feeding self breakfast. Objective - Vital Signs Vital signs: Vital Signs Temp Pulse Resp BP Pulse Ox 08/21/16 07:00 86 16 114/79 96 08/21/16 05:04 98.1 F 89 18 115/70 90 08/21/16 03:13 22 97 08/20/16 21:43 97.4 F L 85 20 135/84 99 08/20/16 21:27 18 96 08/20/16 16:16 16 90 08/20/16 11:54 97.8 F 89 16 137/92 91 08/20/16 11:35 16 95 Intake and Output 08/20/16 08/21/16 08/21/16 23:59 07:59 15:59 Intake Total 240 / 240 400 / 400 Output Total 650 / 650 Balance -410 / -410 400 / 400 Intake: Oral 240 / 240 400 / 400 Output: Catheter 650 / 650 Other: Meal Dinner Percent of Meal Consumed 100% Stool Size Small Moderate Stool Consistency soft soft Stool Characteristics Normal for Patient Stool Color Brown Brown Yellow Yellow Green # Bowel Movements 1 1 - General Appearance General appearance: Present: well-developed, well-nourished, appears started age , obese EENT: Present: mucous membranes moist Neck: Present: no JVD Respiratory: Present: rhonchi Cardiology: Present: edema, regular rate, regular rhythm Additional Comments: anasarca Gastrointestinal: Present: normoactive bowel sounds, no tenderness Integumentary: Present: warm and dry Psychiatric: Present: mood/affect appropriate, cooperative - Lab 08/21/16 03:55 08/21/16 03:55 Most recent lab results ABG pH 7.32 pH Units (7.32-7.45) 08/17/16 04:20 ABG pCO2 55 mmHg (35-45) H 08/17/16 04:20 ABG pO2 76 mmHg (85-104) L 08/17/16 04:20 ABG HCO3 28.3 mEQ/L (21-27) H 08/17/16 04:20 ABG O2 Saturation 94 % (95-98) L 08/17/16 04:20 Calcium 9.1 mg/dL (8.6-10.8) 08/21/16 03:55 Phosphorus 7.8 mg/dL (2.3-4.7) H 08/18/16 04:20 Magnesium 2.3 mg/dL (1.6-2.6) 08/20/16 04:35 Urine Creatinine 46 mg/dL 08/14/16 04:03 Urine Sodium < 20.0 mEq/L 08/14/16 04:03 Consult Discharge Plan - Plan Referrals: NO,PCP [Primary Care Provider] -
--- NOTE | 2016-08-21 09:42 | Internal Med Progress Note ---
<Tristen Castañeda - Last Filed: 08/21/16 13:21> Date of Encounter: 08/21/16 Time of Encounter: 08:45 - Assessment and plan (1) Respiratory failure Current Visit: Yes Status: Acute Assessment and plan: States breathing is better today, currently on 2L supplemental O2. Qualifiers: Chronicity: acute on chronic Respiratory failure complication: hypoxia and hypercapnia Qualified Code(s): J96.21 - Acute and chronic respiratory failure with hypoxia; J96.22 - Acute and chronic respiratory failure with hypercapnia (2) Leukocytosis Current Visit: Yes Status: Acute Assessment and plan: Slight improvement in WBC from 13.7 >12.9. Currently on no abx. Repeat CXR? Qualifiers: Leukocytosis type: unspecified Qualified Code(s): D72.829 - Elevated white blood cell count, unspecified (3) Chronic wound of extremity Current Visit: Yes Status: Chronic (4) AIN (acute interstitial nephritis) Current Visit: Yes Status: Acute Assessment and plan: Appears to be related to IV abx. Creatinine worse at 2.68. Appreciate renal input. (5) Anemia Current Visit: No Status: Chronic Assessment and plan: Monitoring H/H. Dropped to 8.9, no active bleeding noted. Qualifiers: Anemia type: iron deficiency Iron deficiency anemia type: unspecified iron deficiency Qualified Code(s): D50.9 - Iron deficiency anemia, unspecified (6) Morbid obesity with BMI of 60.0-69.9, adult Current Visit: Yes Status: Chronic Assessment and plan: Supportive care. (7) 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 Assessment and plan: Supportive care. (8) Debility, unspecified Current Visit: Yes Status: Chronic Assessment and plan: Supportive care. D/C planning - sister is planning on taking him home with her. - Time Spent With Patient less than 15 minutes - Subjective Interval history: Mr. Junior was seen and examined while eating breakfast. Patient denies any acute complaints. He states he is breathing today without difficulty; currently on 2L O2. - Constitutional Vitals: Temp Pulse Resp BP Pulse Ox 98.1 F 86 16 114/79 96 08/21/16 05:04 08/21/16 07:00 08/21/16 07:00 08/21/16 07:00 08/21/16 07:00 General appearance: Present: A&O X 1, morbidly obese, no acute distress, answers questions appropriately - Head Head exam: Present: atraumatic - Eye Eye exam: Present: conjuntiva pink, sclera anicteric - ENT ENT exam: Present: mucous membranes moist - Neck Neck exam general surgery: Present: full ROM - Respiratory Respiratory exam: Present: decreased breath sounds, wheezes - Cardiovascular Cardiovascular exam: Present: RRR - GI/Abdominal GI/Abdominal exam: Present: soft. Absent: tenderness - Extremities Exam Extremities exam: Present: pedal edema (BLE swollen to above knees; erythema of R singh; both lower extremities are wrapped.) - Neurological Exam Neurological exam: Present: alert - Skin Skin exam: Present: dry, warm Internal Medicine: Result - Labs CBC & Chem 7: 08/21/16 03:55 08/21/16 03:55 Labs: Short CBC 08/21/16 Range/Units 03:55 WBC 12.9 H (4.3-11.1) K/mcL Hgb 8.9 L (12.9-16.9) g/dL Hct 30.6 L (37.5-50.1) % Plt Count 279 (140-400) K/mcL BMP 08/21/16 03:55 Sodium 143 Potassium 4.3 Chloride 106 Carbon Dioxide 24 BUN 81 H Creatinine 2.68 H Glucose 98 Calcium 9.1 - ABG Interpretation ABG results: ABG ABG pH 7.32 pH Units (7.32-7.45) 08/17/16 04:20 ABG pCO2 55 mmHg (35-45) H 08/17/16 04:20 ABG pO2 76 mmHg (85-104) L 08/17/16 04:20 ABG O2 Saturation 94 % (95-98) L 08/17/16 04:20 PT/INR, D-dimer PT 14.0 Seconds (9.4-12.1) H 08/08/16 21:17 Consult Discharge Plan - Plan Referrals: NO,PCP [Primary Care Provider] - <Jordy Sharp - Last Filed: 08/21/16 16:44> Date of Encounter: 08/21/16 - Assessment and plan (1) Respiratory failure Current Visit: Yes Status: Acute Qualifiers: Chronicity: acute on chronic Respiratory failure complication: hypoxia and hypercapnia Qualified Code(s): J96.21 - Acute and chronic respiratory failure with hypoxia; J96.22 - Acute and chronic respiratory failure with hypercapnia (2) Leukocytosis Current Visit: Yes Status: Acute Qualifiers: Leukocytosis type: other Qualified Code(s): D72.828 - Other elevated white blood cell count (3) Chronic wound of extremity Current Visit: Yes Status: Acute (4) AIN (acute interstitial nephritis) Current Visit: Yes Status: Acute (5) Anemia Current Visit: Yes Status: Chronic Qualifiers: Anemia type: iron deficiency Iron deficiency anemia type: inadequate dietary iron intake Qualified Code(s): D50.8 - Other iron deficiency anemias (6) Prader-Willi syndrome Current Visit: Yes Status: Chronic (7) Morbid obesity with BMI of 60.0-69.9, adult Current Visit: Yes Status: Chronic (8) Debility, unspecified Current Visit: Yes Status: Chronic - Time Spent With Patient Time for my visit - 32min - Constitutional Vitals: Temp Pulse Resp BP Pulse Ox 98.1 F 86 18 125/84 93 08/21/16 05:04 08/21/16 15:00 08/21/16 16:10 08/21/16 15:00 08/21/16 16:10 Internal Medicine: Result - Labs CBC & Chem 7: 08/21/16 03:55 08/21/16 03:55 Labs: Short CBC 08/21/16 Range/Units 03:55 WBC 12.9 H (4.3-11.1) K/mcL Hgb 8.9 L (12.9-16.9) g/dL Hct 30.6 L (37.5-50.1) % Plt Count 279 (140-400) K/mcL BMP 08/21/16 03:55 Sodium 143 Potassium 4.3 Chloride 106 Carbon Dioxide 24 BUN 81 H Creatinine 2.68 H Glucose 98 Calcium 9.1 - ABG Interpretation ABG results: ABG ABG pH 7.32 pH Units (7.32-7.45) 08/17/16 04:20 ABG pCO2 55 mmHg (35-45) H 08/17/16 04:20 ABG pO2 76 mmHg (85-104) L 08/17/16 04:20 ABG O2 Saturation 94 % (95-98) L 08/17/16 04:20 PT/INR, D-dimer PT 14.0 Seconds (9.4-12.1) H 08/08/16 21:17 - Impressions Impressions Chest X-Ray 08/21/16 12:33 IMPRESSION: Interval removal of endotracheal and enteric tubes. There persistent perihilar opacities which may reflect pneumonia or edema. D/ / Radha Espinal MD / Radha Espinal MD Interpreting Provider: Radha Espinal MD - Attending Attestation I examined this patient and my medical decision-making was reviewed with the Resident Physician on 08/21/16. I agree with the documented findings, disposition and treatment plan as described except to the extent set forth below. Mr. Junior is currently admitted for acute resp failure/cardiac arrest due to presumed aspiration. He is moderate to high risk due to potential for worsening respiratory status. Mr. Junior is more congested today. No fever or chills. No GI symptoms. He has no complaints. Exam Alert. Comfortable Heart reg Rhonchi heard throughout I/P 1. STEPHANIE - per renal. Appears to be at a new baseline. 2. Pneumonia - completed abx 3. Congestion - CXR ? fluid - Lasix x 1 today. Further diagnoses and plan as above.
[2016-08-21] MEDS: Famotidine 20 MG TABLET PO SCH (09:43)
[2016-08-21] MEDS: Lactobacillus 1 EACH CAP.SPRINK PO SCH ×3 (09:44→21:12)
[2016-08-21] MEDS: Folic Acid 1 MG TABLET PO SCH (09:44)
[2016-08-21] MEDS: Nystatin POWDER 30 GM BOTTLE TP SCH ×2 (09:45→21:39)
[2016-08-21] MEDS: Budesonide/Formoterol 160/4.5 MDI IH SCH ×3 (10:56→21:31)
[2016-08-21] MEDS ORDERED: Furosemide 20 MG/2 ML VIAL IVP ONE (16:45)
[2016-08-22] MEDS: *HR* Heparin 5,000 UNIT/ML VIAL SQ SCH ×3 (02:11→16:36)
[2016-08-22] MEDS: Gentamicin Oint 15 GM TUBE TP SCH ×2 (02:41→16:35)
[2016-08-22] MEDS: Ipratropium/Albuterol Neb 3 ML IH SCH ×4 (04:03→20:46)
[2016-08-22 05:49] LABS: Basophils # 0.1 K/mcL (0.0-0.2); Basophils % 0.5 %; Eosinophils # 1.1 K/mcL (0.0-0.6); Eosinophils % 8.6 %; Hematocrit 30.2 % (37.5-50.1); Hemoglobin 8.8 g/dL (12.9-16.9); Immature Granulocytes % 1.4 % (0-4); Lymphocytes # 1.2 K/mcL (0.6-4.6); Lymphocytes % 8.8 %; Mean Corpuscular HGB Conc 29.1 g/dL (31.6-35.5); Mean Corpuscular Hemoglobin 25.8 pg (28.0-33.3); Mean Corpuscular Volume 88.6 fL (83.0-100.0); Mean Platelet Volume 9.5 fL (9.4-12.4); Monocytes # 1.3 K/mcL (0.0-1.3); Neutrophils # 9.4 K/mcL (1.6-8.9); Platelet Count 256 K/mcL (140-400); Red Blood Count 3.41 M/mcL (4.19-5.50); Red Cell Distribution Width 16.3 % (11.5-14.5); Segmented Neutrophils % 70.7 %
[2016-08-22 06:17] LABS: Calcium 9.1 mg/dL (8.6-10.8)
--- NOTE | 2016-08-22 08:26 | Nephrology Progress Note ---
Date of Encounter: 08/22/16 Time of Encounter: 08:24 - Assessment and Plan (1) Acute kidney failure, unspecified Current Visit: Yes Status: Acute Patient has acute kidney injury in the setting of nephrotoxic antibiotics. His renal function is slowly improving. He also was shown to have increased urine eosinophils raising the possibility of acute interstitial nephritis. However given the patient's problems with infection he was not a candidate for steroid therapy. At this point we will continue monitor his renal function. Nephrotoxins should continue to be avoided. Qualifiers: Acute renal failure type: unspecified Qualified Code(s): N17.9 - Acute kidney failure, unspecified (2) Wound, open, lower limb with complication Current Visit: Yes Status: Chronic Qualifiers: Encounter type: subsequent encounter Laterality: unspecified laterality Qualified Code(s): S81.809D - Unspecified open wound, unspecified lower leg, subsequent encounter (3) Morbid obesity with BMI of 50.0-59.9, adult Current Visit: Yes Status: Chronic Subjective Principal diagnosis: Respiratory failure, sepsis, cellulitis Interval history: The patient voices no new complaints. His renal function continues to slowly improve. Urine output appears adequate. Vital signs are stable. Objective - Vital Signs Vital signs: Vital Signs Temp Pulse Resp BP Pulse Ox 08/22/16 07:14 97.4 F L 78 16 127/69 97 08/22/16 04:04 18 97 08/22/16 03:49 97.9 F 80 19 127/69 100 08/21/16 23:59 97.6 F 18 83 132/88 99 08/21/16 21:32 18 99 08/21/16 20:35 97.8 F 85 18 120/93 97 08/21/16 16:10 18 93 08/21/16 15:00 86 16 125/84 96 08/21/16 11:06 16 90 Intake and Output 08/21/16 08/22/16 08/22/16 23:59 07:59 15:59 Output Total 1000 / 1000 750 / 750 Balance -1000 / -1000 -750 / -750 Output: Catheter 1000 / 1000 750 / 750 Other: Weight 109.8 kg Patient Weight 08/22/16 23:59 Weight 109.8 kg - General Appearance Exam: Patient is alert and oriented. He is in no acute distress. Lungs managed breath sounds. Heart regular rate and rhythm. Abdomen is obese. Is nontender. There is lower extremity swelling. A Edwards catheter is in place. Leg ulcers have dressings in place. - Lab 08/22/16 05:30 08/22/16 05:30 Most recent lab results ABG pH 7.32 pH Units (7.32-7.45) 08/17/16 04:20 ABG pCO2 55 mmHg (35-45) H 08/17/16 04:20 ABG pO2 76 mmHg (85-104) L 08/17/16 04:20 ABG HCO3 28.3 mEQ/L (21-27) H 08/17/16 04:20 ABG O2 Saturation 94 % (95-98) L 08/17/16 04:20 Calcium 9.1 mg/dL (8.6-10.8) 08/22/16 05:30 Phosphorus 7.8 mg/dL (2.3-4.7) H 08/18/16 04:20 Magnesium 2.3 mg/dL (1.6-2.6) 08/20/16 04:35 Urine Creatinine 46 mg/dL 08/14/16 04:03 Urine Sodium < 20.0 mEq/L 08/14/16 04:03 Consult Discharge Plan - Plan Referrals: NO,PCP [Primary Care Provider] -
[2016-08-22] MEDS: Folic Acid 1 MG TABLET PO SCH (09:57)
[2016-08-22] MEDS: Famotidine 20 MG TABLET PO SCH (09:57)
[2016-08-22] MEDS: Lactobacillus 1 EACH CAP.SPRINK PO SCH (09:58)
[2016-08-22] MEDS: Nystatin POWDER 30 GM BOTTLE TP SCH (10:06)
[2016-08-22] MEDS: Budesonide/Formoterol 160/4.5 MDI IH SCH ×2 (10:44→20:46)
--- NOTE | 2016-08-22 15:12 | Discharge Summary ---
Date of Encounter: 08/23/16 - Discharge Diagnosis (1) Respiratory failure Priority: Primary Status: Acute Qualifiers: Chronicity: acute on chronic Respiratory failure complication: hypoxia and hypercapnia Qualified Code(s): J96.21 - Acute and chronic respiratory failure with hypoxia; J96.22 - Acute and chronic respiratory failure with hypercapnia (2) Leukocytosis Status: Acute Qualifiers: Leukocytosis type: unspecified Qualified Code(s): D72.829 - Elevated white blood cell count, unspecified (3) Chronic wound of extremity Status: Chronic (4) AIN (acute interstitial nephritis) Status: Acute (5) Anemia Status: Chronic Qualifiers: Anemia type: iron deficiency Iron deficiency anemia type: unspecified iron deficiency Qualified Code(s): D50.9 - Iron deficiency anemia, unspecified (6) Morbid obesity with BMI of 60.0-69.9, adult Status: Chronic (7) Prader-Willi syndrome Status: Chronic (8) Debility, unspecified Status: Chronic - Discharge Medications Prescriptions: Amoxicillin/Clavulanate [Augmentin] 875 mg PO BIDWM #14 tablet Nystatin POWDER [Nystop] 1 appl TP BID PRN #1 bottle PRN Reason: Rash Potassium Chloride 10 meq PO DAILY #30 tab.er.prt Home Medications: Multivitamin [Multi-Day Vitamins] 1 each PO DAILY 01/07/16 [History] Ascorbic Acid [Vitamin C] 500 mg PO DAILY #30 tablet 01/09/16 [Rx] Folic Acid 0.4 mg PO DAILY #30 tablet 01/09/16 [Rx] Ferrous Gluconate 324 mg PO BID #60 tablet 02/15/16 [Rx] Lactobacillus [Culturelle] 1 each PO BID cap.sprink 06/01/16 [Rx] Zinc Sulfate 220 mg PO DAILY capsule 06/01/16 [Rx] Acetaminophen [Acetaminophen ER] 650 mg PO Q6H PRN 06/14/16 [History] Docusate [Colace] 100 mg PO BID PRN 06/14/16 [History] Famotidine [Heartburn Prevention] 20 mg PO BID 06/14/16 [History] Albuterol Neb [Proventil Neb] 2.5 mg IH Q2H PRN 08/08/16 [History] Collagenase Oint [Santyl] 1 appl TP AD 08/08/16 [History] Furosemide [Lasix] 40 mg PO BID 08/08/16 [History] Gentamicin Oint [Garamycin] 1 appl TP AD 08/08/16 [History] Ipratropium/Albuterol Neb [Duoneb] 3 ml IH QID 08/08/16 [History] Oxygen 2 l NS AD 08/08/16 [History] Amoxicillin/Clavulanate [Augmentin] 875 mg PO BIDWM #14 tablet 08/22/16 [Rx] Nystatin POWDER [Nystop] 1 appl TP BID PRN #1 bottle 08/22/16 [Rx] Potassium Chloride 10 meq PO DAILY #30 tab.er.prt 08/22/16 [Rx] Allergies/Adverse Reactions: Allergies cephalexin [From Keflex] Allergy (Verified 08/08/16 12:30) See Comments Pt unsure of reaction. chlorpromazine [From Thorazine] Allergy (Verified 08/08/16 12:30) See Comments [place] Allergy (Verified 08/08/16 12:30) See Comments [place] Allergy (Uncoded 08/08/16 12:30) See Comments Date of admission: 08/08/16 16:47 Primary care physician: PCP NO Consults: 08/08/16 16:53 Consult to Wound Care [CONS] Routine Reason for Consult: bilateral lower ext wounds Call Completed: No 08/08/16 17:06 Consult to Infectious Diseases [CONS] Routine Consulting Provider: Infectious Disease Rosina Reason for Consult: ATB management Call Completed: Yes 08/08/16 17:51 Consult to Podiatry [CONS] Routine Consulting Provider: Podiat[facility] Reason for Consult: worsening lower ext wounds Call Completed: Yes 08/08/16 18:38 Consult to Behavioral Health Case Manager [CONS] Routine Reason for SW Consult: came from [facility]. 08/10/16 15:21 Consult to Gastroenterology [CONS] Routine Consulting Provider: Gastroenterology Rosina Reason for Consult: transaminitis Call Completed: Yes 08/10/16 21:18 Consult to Pulmonology [CONS] Routine Consulting Provider: Pulm Crit [facility] Reason for Consult: Sepsis; multi-organ dysfunction; ICU management Call Completed: No 08/11/16 08:26 consult to construction supervisor [Consult to Nutrition] [CONS] Routine Comment: Consulting Provider: NUTRITION Reason for Dietary Consult: TF Start and Manage 08/11/16 08:28 Consult to Urology [CONS] Routine Consulting Provider: Urology [facility] Reason for Consult: Prader-Willi, micropenis, velasquez placement Time Notified: 08:29 Call Completed: Yes 08/11/16 10:42 Consult to PICC team [Consult to Invasive Line Access Team] [CONS] Routine Reason for Consult: 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 terminal attack controller antibiotics, limited access, only 1 working IV Line Type: PICC Call Completed: No 08/16/16 09:46 Consult to Nephrology [CONS] Stat Consulting Provider: [facility] Reason for Consult: worsening STEPHANIE, suspect AIN Time Notified: 09:46 Call Completed: Yes 08/18/16 07:15 Consult to Occupational Therapy [CONS] Routine Comment: Evaluate, develop and implement POC Reason for Consult: POC Consult to Physical Therapy [CONS] Routine Comment: Evaluate, develop and implement POC Reason for Consult: POC 08/18/16 08:31 Consult to Nutrition [CONS] Routine Comment: Consulting Provider: NUTRITION Reason for Dietary Consult: Diet Education 08/21/16 18:43 Consult to Speech Therapy [CONS] Routine Comment: Evaluate, develop and implement POC Reason for Consult: Possible aspiration Call Completed: No Anticipated date of discharge: 08/23/16 - Patient Status Disposition: Transfer SNF Condition: Fair Functional capacity at discharge: bed bound Overall status at discharge: patient is progressing back to baseline - Ambulatory Orders Ambulatory Orders: XR modified bs w speech therap [XR] Time Frame: 1 Week, Facility: [facility], Location: Radiology - Discharge Instructions Instructions: Cellulitis (DC), Sepsis (DC), Anemia (GEN), Pneumonia (DC) Follow Up With: NO,PCP [Primary Care Provider] - Additional Instructions: Mechanically altered diet with nectar thick liquids recommended. Recommend Modified Barium Swallow Study as outpatient. Complete 7 day course of antibiotics. Repeat CBC and BMP in 1 week Followup with Primary Care Provider in the next week or sooner if needed. - Diet and Activity Activity: increase activity as tolerated, wear oxygen at all times Diet: other (see instructions) Hospital course: Mr. Junior is a 46 year old male - Time Spent with Patient Total time spent providing and/or coordinating discharge services: - Constitutional Vitals: Temp Pulse Resp BP Pulse Ox 97.6 F 84 16 118/71 97 08/22/16 12:02 08/22/16 12:02 08/22/16 12:02 08/22/16 12:02 08/22/16 12:02 General appearance: Present: A&O X 1, morbidly obese, no acute distress, answers questions appropriately
--- NOTE | 2016-08-22 16:41 | Physician Discharge Referral ---
<Tristen Castañeda - Last Filed: 08/22/16 16:53> ExtendedCare Referral Info Transfer To: [facility] Provider in Charge after Transfer: PCP Institutional Level of Care: Skilled - Diagnosis (1) Respiratory failure Priority: Primary Status: Acute (2) Leukocytosis Priority: Secondary Status: Acute (3) Chronic wound of extremity Priority: Secondary Status: Chronic (4) AIN (acute interstitial nephritis) Priority: Secondary Status: Acute (5) Anemia Priority: Secondary Status: Chronic (6) Morbid obesity with BMI of 60.0-69.9, adult Priority: Secondary Status: Chronic (7) Prader-Willi syndrome Priority: Secondary Status: Chronic (8) Debility, unspecified Priority: Secondary Status: Chronic Prognosis: Fair Aware of Diagnosis: Patient, Family Aware of Prognosis: Patient, Family - Transfer Medications Prescriptions: Amoxicillin/Clavulanate [Augmentin] 875 mg PO BIDWM #14 tablet Nystatin POWDER [Nystop] 1 appl TP BID PRN #1 bottle PRN Reason: Rash Potassium Chloride 10 meq PO DAILY #30 tab.er.prt Home Medications: Multivitamin [Multi-Day Vitamins] 1 each PO DAILY 01/07/16 [History] Ascorbic Acid [Vitamin C] 500 mg PO DAILY #30 tablet 01/09/16 [Rx] Folic Acid 0.4 mg PO DAILY #30 tablet 01/09/16 [Rx] Ferrous Gluconate 324 mg PO BID #60 tablet 02/15/16 [Rx] Lactobacillus [Culturelle] 1 each PO BID cap.sprink 06/01/16 [Rx] Zinc Sulfate 220 mg PO DAILY capsule 06/01/16 [Rx] Acetaminophen [Acetaminophen ER] 650 mg PO Q6H PRN 06/14/16 [History] Docusate [Colace] 100 mg PO BID PRN 06/14/16 [History] Famotidine [Heartburn Prevention] 20 mg PO BID 06/14/16 [History] Albuterol Neb [Proventil Neb] 2.5 mg IH Q2H PRN 08/08/16 [History] Collagenase Oint [Santyl] 1 appl TP AD 08/08/16 [History] Furosemide [Lasix] 40 mg PO BID 08/08/16 [History] Gentamicin Oint [Garamycin] 1 appl TP AD 08/08/16 [History] Ipratropium/Albuterol Neb [Duoneb] 3 ml IH QID 08/08/16 [History] Oxygen 2 l NS AD 08/08/16 [History] Amoxicillin/Clavulanate [Augmentin] 875 mg PO BIDWM #14 tablet 08/22/16 [Rx] Nystatin POWDER [Nystop] 1 appl TP BID PRN #1 bottle 08/22/16 [Rx] Potassium Chloride 10 meq PO DAILY #30 tab.er.prt 08/22/16 [Rx] Allergies/Adverse Reactions: Allergies cephalexin [From Keflex] Allergy (Verified 08/08/16 12:30) See Comments Pt unsure of reaction. chlorpromazine [From Thorazine] Allergy (Verified 08/08/16 12:30) See Comments [place] Allergy (Verified 08/08/16 12:30) See Comments [place] Allergy (Uncoded 08/08/16 12:30) See Comments - Respiratory Orders Oxygen / L per min (3L) Smoking Cessation: Smoking cessation has been advised. For more information, call the [employer] at 4-908-XPAG-NOW. - Lab Orders Lab Orders: CBC (ordered for next week.), Other (include drug levels w/frequency ) (BMP for next week) - Advance Directives Power of Extrusion Press Operator: Yes (Kerri Garcia) Code Status: Full Code - Mobility Orders Bedrest (per PT) - Rehabiliation Orders Rehab Potential: Poor Rehab Orders: Evaluation for Physical Therapy, Evaluation for Occupational Therapy - Treatments Skin tear care topically daily PRN per policy List/Other: Treatment of lower extremity wounds: clean with soap and water, treat with Santyl and Gentamicin, and dress with 4x4 and gauze. Pending labs in 1 week. Modified Barium Swallow study to be scheduled. - Diet Orders Mechanical Soft (with thin liquids) CERTIFICATION: I certify that the transfer of the above named patient to an Extended Care Facility is necessary for the continuing treatment of the diagnosis listed. The above information is true and accurate reflection of patient's current condition. Confidential - Redisclosure prohibited without a patient's written consent. <Ha David P - Last Filed: 08/22/16 18:37> - Respiratory Orders Smoking Cessation: Smoking cessation has been advised. For more information, call the [employer] at 2-342-ZUAE-NOW. CERTIFICATION: I certify that the transfer of the above named patient to an Extended Care Facility is necessary for the continuing treatment of the diagnosis listed. The above information is true and accurate reflection of patient's current condition. Confidential - Redisclosure prohibited without a patient's written consent.
--- NOTE | 2016-08-22 17:49 | Internal Med Progress Note ---
<Tristen Castañeda - Last Filed: 08/22/16 18:00> Date of Encounter: 08/22/16 Time of Encounter: 09:20 - Assessment and plan (1) Respiratory failure Current Visit: Yes Status: Acute Assessment and plan: States breathing is better today, currently on 2L supplemental O2. Qualifiers: Chronicity: acute on chronic Respiratory failure complication: hypoxia and hypercapnia Qualified Code(s): J96.21 - Acute and chronic respiratory failure with hypoxia; J96.22 - Acute and chronic respiratory failure with hypercapnia (2) Leukocytosis Current Visit: Yes Status: Acute Assessment and plan: Slight change in WBC from 13.7 >12.9>13.2. Currently on no abx. Will start PO augmentin for concerns of aspiration pneumonia. Qualifiers: Leukocytosis type: unspecified Qualified Code(s): D72.829 - Elevated white blood cell count, unspecified (3) Chronic wound of extremity Current Visit: Yes Status: Chronic (4) AIN (acute interstitial nephritis) Current Visit: Yes Status: Acute Assessment and plan: Appears to be related to IV abx/medication insult. Creatinine 2.68>2.49. Appreciate renal input. (5) Anemia Current Visit: No Status: Chronic Assessment and plan: Monitoring H/H. Dropped to 8.8, no active bleeding noted. Qualifiers: Anemia type: iron deficiency Iron deficiency anemia type: unspecified iron deficiency Qualified Code(s): D50.9 - Iron deficiency anemia, unspecified (6) Morbid obesity with BMI of 60.0-69.9, adult Current Visit: Yes Status: Chronic Assessment and plan: Supportive care. (7) 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 Assessment and plan: Supportive care. (8) Debility, unspecified Current Visit: Yes Status: Chronic Assessment and plan: Supportive care. D/C planning - initial plan was to go home with patient's sister; current plan to return to [facility] pending ramp construction at sister's. (9) At risk for aspiration Current Visit: Yes Status: Acute Assessment and plan: Bedside swallow eval recommending mechanically soft foods with thin liquids, recommendig outpatient modified BS. - Time Spent With Patient less than 15 minutes - Subjective Interval history: Mr. Junior was seen and examined at bedside. Patient denies any acute complaints. He states he is breathing today without difficulty; currently on 2L O2. - Constitutional Vitals: Temp Pulse Resp BP Pulse Ox 97.6 F 84 16 118/71 97 08/22/16 12:02 08/22/16 12:02 08/22/16 12:02 08/22/16 12:02 08/22/16 12:02 General appearance: Present: A&O X 1, morbidly obese, no acute distress, answers questions appropriately - Head Head exam: Present: atraumatic, normocephalic - Eye Eye exam: Present: conjuntiva pink, sclera anicteric - ENT ENT exam: Present: mucous membranes moist - Neck Neck exam general surgery: Present: supple - Respiratory Respiratory exam: Present: rales, rhonchi - Cardiovascular Cardiovascular exam: Present: RRR - GI/Abdominal GI/Abdominal exam: Present: soft. Absent: firm, guarding, tenderness - Extremities Exam Additional comments: BLE edema, currently wrapped due to hx of chronic wounds, drainage noted on dressings. - Neurological Exam Neurological exam: Present: alert, altered - Skin Skin exam: Present: dry, normal color (except BLE erythema), warm Internal Medicine: Result - Labs CBC & Chem 7: 08/22/16 05:30 08/22/16 05:30 Labs: Short CBC 08/22/16 Range/Units 05:30 WBC 13.2 H (4.3-11.1) K/mcL Hgb 8.8 L (12.9-16.9) g/dL Hct 30.2 L (37.5-50.1) % Plt Count 256 (140-400) K/mcL Neutrophils # 9.4 H (1.6-8.9) K/mcL BMP 08/22/16 05:30 Sodium 142 Potassium 4.0 Chloride 107 Carbon Dioxide 25 BUN 83 H Creatinine 2.49 H Glucose 87 Calcium 9.1 - ABG Interpretation ABG results: ABG ABG pH 7.32 pH Units (7.32-7.45) 08/17/16 04:20 ABG pCO2 55 mmHg (35-45) H 08/17/16 04:20 ABG pO2 76 mmHg (85-104) L 08/17/16 04:20 ABG O2 Saturation 94 % (95-98) L 08/17/16 04:20 PT/INR, D-dimer PT 14.0 Seconds (9.4-12.1) H 08/08/16 21:17 Consult Discharge Plan - Plan Instructions: Cellulitis (DC), Sepsis (DC), Anemia (GEN), Pneumonia (DC) Additional Instructions: Mechanically altered diet with nectar thick liquids recommended. Recommend Modified Barium Swallow Study as outpatient. Complete 7 day course of antibiotics. Repeat CBC and BMP in 1 week Followup with Primary Care Provider in the next week or sooner if needed. Referrals: NO,PCP [Primary Care Provider] - Prescriptions: Amoxicillin/Clavulanate [Augmentin] 875 mg PO BIDWM #14 tablet Nystatin POWDER [Nystop] 1 appl TP BID PRN #1 bottle PRN Reason: Rash Potassium Chloride 10 meq PO DAILY #30 tab.er.prt <Ha David - Last Filed: 08/22/16 18:37> Date of Encounter: 08/22/16 - Constitutional Vitals: Temp Pulse Resp BP Pulse Ox 97.6 F 84 16 118/71 97 08/22/16 12:02 08/22/16 12:02 08/22/16 12:02 08/22/16 12:02 08/22/16 12:02 Internal Medicine: Result - Labs CBC & Chem 7: 08/22/16 05:30 08/22/16 05:30 Labs: Short CBC 08/22/16 Range/Units 05:30 WBC 13.2 H (4.3-11.1) K/mcL Hgb 8.8 L (12.9-16.9) g/dL Hct 30.2 L (37.5-50.1) % Plt Count 256 (140-400) K/mcL Neutrophils # 9.4 H (1.6-8.9) K/mcL BMP 08/22/16 05:30 Sodium 142 Potassium 4.0 Chloride 107 Carbon Dioxide 25 BUN 83 H Creatinine 2.49 H Glucose 87 Calcium 9.1 - ABG Interpretation ABG results: ABG ABG pH 7.32 pH Units (7.32-7.45) 08/17/16 04:20 ABG pCO2 55 mmHg (35-45) H 08/17/16 04:20 ABG pO2 76 mmHg (85-104) L 08/17/16 04:20 ABG O2 Saturation 94 % (95-98) L 08/17/16 04:20 PT/INR, D-dimer PT 14.0 Seconds (9.4-12.1) H 08/08/16 21:17 - Attending Attestation I examined this patient and my medical decision-making was reviewed with the MARKETING DEVELOPMENT REPRESENTATIVE/PA/Advanced Practice Nurse/Resident Physician. I agree with the documented findings, disposition and treatment plan as described except to the extent set forth below.
[2016-08-22] MEDS ORDERED: Ondansetron ODT 4 MG TAB.RAPDIS SL PRN (18:48)
[2016-08-22] MEDS ORDERED: Albuterol 2.5 MG/3 ML NEBULIZER IH ONE (22:04)
[2016-08-22] MEDS ORDERED: Albuterol 2.5 MG/3 ML NEBULIZER ONE (22:04)
[2016-08-22] MEDS ORDERED: Ondansetron 4 MG/2 ML VIAL IM ONE (22:48)
[2016-08-22] MEDS ORDERED: Furosemide 40 MG/4 ML VIAL IVP ONE (23:00)
[2016-08-23] MEDS: Lactobacillus 1 EACH CAP.SPRINK PO SCH ×3 (01:44→23:01)
[2016-08-23] MEDS: Gentamicin Oint 15 GM TUBE TP SCH ×4 (01:44→20:09)
[2016-08-23] MEDS: *HR* Heparin 5,000 UNIT/ML VIAL SQ SCH ×4 (01:55→16:47)
[2016-08-23] MEDS: Nystatin POWDER 30 GM BOTTLE TP SCH ×3 (01:56→19:20)
[2016-08-23 02:41] LABS: Adenovirus F 40/41 PCR Not detected (Not detect); Astrovirus PCR Not detected (Not detect); C.difficile Toxin A/B by PCR Not detected (Not detect); Campylobacter by PCR Not detected (Not detect); Cryptosporidium by PCR Not detected (Not detect); Cyclospora cayetanensis PCR Not detected (Not detect); E. coli O157 by PCR Not detected (Not detect); Entamoeba histolytica PCR Not detected (Not detect); Enteroaggregative E.coli(EAEC) Not detected (Not detect); Enteropathogenic E.coli(EPEC) Not detected (Not detect); Enterotoxigenic E.coli (ETEC) Not detected (Not detect); Giardia lamblia PCR Not detected (Not detect); Norovirus GI/GII PCR Not detected (Not detect); Plesiomonas shigelloides PCR Not detected (Not detect); Rotavirus A PCR Not detected (Not detect); Salmonella PCR Not detected (Not detect); Sapovirus PCR Not detected (Not detect); Shig/EnteroinvasiveE coli EIEC Not detected (Not detect); Shigalike tox-prod E coli STEC Not detected (Not detect); Vibrio PCR Not detected (Not detect); Vibrio cholerae PCR Not detected (Not detect); Yersinia enterocolitica PCR Not detected (Not detect)
[2016-08-23] MEDS: Ipratropium/Albuterol Neb 3 ML IH SCH ×4 (03:45→22:00)
--- NOTE | 2016-08-23 05:54 | Event Note ---
Date of Encounter: 08/23/16 Time of Encounter: 05:48 I was alerted by nursing staff due to decreasing oxygen saturation and vomiting. On examination the patient was requiring 11L O2 to maintain sats above 90% and on exam he was found to have coarse crackles in his lungs bilaterally. I was concerned for pulmonary edema so an order for lasix was given. Patient was supposed to be discharged today and his IV was removed so he had no IV access. Several attempts were made to place and IV or EPIV which were unsuccessful. I then ordered Lasix and zofran to be given IM. Re-evaluation after medication administration showed patients oxygen requirements to be much less and patient had no more vomiting. I had long discussion regarding the patients condition with the family and discussed the concern for aspiration. Family was very concerned for pancreatitis because they feel he acted similar several years ago when he had gallstone pancreatitis. Family strongly requested that I test for pancreatitis so lipase is pending. Will sign out events of evening to day team.
[2016-08-23 07:24] LABS: Albumin 2.4 g/dL (3.5-5.0); Albumin/Globulin Ratio 0.6 (1.1-2.2); Bilirubin,Total 0.3 mg/dL (0.2-1.2); Globulin 4.3 g/dL (2.4-3.5); Total Protein 6.7 g/dL (6.0-8.3)
--- NOTE | 2016-08-23 08:40 | Internal Med Progress Note ---
<Tristen Castañeda - Last Filed: 08/23/16 23:52> Date of Encounter: 08/23/16 - Assessment and plan (1) Respiratory failure Current Visit: Yes Status: Acute Assessment and plan: Concern for recurring aspiration, evaluated by speech. Per PARTITION MAKING MACHINE OPERATOR: Diet modified and recommending outpatient modified barium swallow study. Patient with Prader Willi syndrome, with hyperphagia and food-seeking behaviors. Reported emesis and hypoxia overnight, likely aspirated. Started on Unasyn this AM for antibiotic coverage. Stable this AM on 3L O2, continue to monitor saturation and titrate as needed. Qualifiers: Chronicity: acute on chronic Respiratory failure complication: hypoxia and hypercapnia Qualified Code(s): J96.21 - Acute and chronic respiratory failure with hypoxia; J96.22 - Acute and chronic respiratory failure with hypercapnia (2) Leukocytosis Current Visit: Yes Status: Acute Assessment and plan: Concern for aspiration pneumonia, on Unasyn Concern for infiltrated IV, cultures pending, started on Vancomycin. Monitor AM labs Qualifiers: Leukocytosis type: unspecified Qualified Code(s): D72.829 - Elevated white blood cell count, unspecified (3) Chronic wound of extremity Current Visit: Yes Status: Chronic Assessment and plan: Continue wound care. (4) AIN (acute interstitial nephritis) Current Visit: Yes Status: Acute Assessment and plan: Appears to be related to IV abx/medication insult. Creatinine worse today 2.68> 2.49>3.1. Albumin given with concern for third spacing of fluid. Monitor UOP. Strict I/Os Patient restarted on Vancomycin for concerns of infiltrated IV/infection. Blood cultures pending and vanc started. Plan discussion with Medicine service, pharmacist, and nephrology about best antibiotics for treatment in the setting of kidney injury. (5) Anemia Current Visit: No Status: Chronic Assessment and plan: Monitoring H/H. Stable at 8-9, no active bleeding noted. Qualifiers: Anemia type: iron deficiency Iron deficiency anemia type: unspecified iron deficiency Qualified Code(s): D50.9 - Iron deficiency anemia, unspecified (6) Morbid obesity with BMI of 60.0-69.9, adult Current Visit: Yes Status: Chronic Assessment and plan: Supportive care. (7) 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 Assessment and plan: Supportive care. (8) Debility, unspecified Current Visit: Yes Status: Chronic Assessment and plan: Supportive care. D/C planning - initial plan was to go home with patient's sister; current plan to return to [facility] pending ramp construction at sister's. - Time Spent With Patient less than 15 minutes - Subjective Interval history: Mr. Junior was seen and examined sleeping in bed this AM. Patient was stable yesterday on supplemental oxygen, we had discussed returning to ECF with coverage for aspiration pneumonia, due to IV access and velasquez catheter removed prior to discharge. He was seen yesterday by speech and started on modifed soft diet for ongoing concerns of aspiration. Patient was noted to have episodes of vomiting yesterday evening with hypoxia occuring during the night; concerned for aspiration during emesis. Patient stable on 3L of supplemental O2 this AM. - Constitutional Vitals: Temp Pulse Resp BP Pulse Ox 96 F L 84 16 90/52 96 08/23/16 07:29 08/23/16 07:29 08/23/16 07:29 08/23/16 07:29 08/23/16 07:29 General appearance: Present: A&O X 1, morbidly obese, no acute distress, answers questions appropriately - Head Head exam: Present: atraumatic, normocephalic - ENT ENT exam: Present: mucous membranes moist - Neck Neck exam general surgery: Present: supple - Respiratory Respiratory exam: Present: rales (RUL), rhonchi (right sided, worse in RUL) - Cardiovascular Cardiovascular exam: Present: RRR - GI/Abdominal GI/Abdominal exam: Present: normal bowel sounds, soft - Extremities Exam Extremities exam: Present: pedal edema ( BLE edema, wounds currently wrapped.). Absent: cyanotic - Neurological Exam Additional comments: alert and altered when awake - Skin Skin exam: Present: dry, warm. Absent: cyanosis, rash Internal Medicine: Result - Labs CBC & Chem 7: 08/23/16 11:10 08/23/16 11:10 Labs: BMP 08/23/16 06:53 Sodium 146 H Potassium 5.0 H D Chloride 112 H Carbon Dioxide 23 BUN 87 H Creatinine 3.09 H Glucose 104 H Calcium 9.0 Liver Function 08/23/16 Range/Units 06:53 Total Bilirubin 0.3 (0.2-1.2) mg/dL AST 15 (5-34) Units/L ALT 34 (0-55) Units/L Alkaline Phosphatase 97 (38-126) Units/L Albumin 2.4 L (3.5-5.0) g/dL - ABG Interpretation ABG results: ABG ABG pH 7.32 pH Units (7.32-7.45) 08/17/16 04:20 ABG pCO2 55 mmHg (35-45) H 08/17/16 04:20 ABG pO2 76 mmHg (85-104) L 08/17/16 04:20 ABG O2 Saturation 94 % (95-98) L 08/17/16 04:20 PT/INR, D-dimer PT 14.0 Seconds (9.4-12.1) H 08/08/16 21:17 - Impressions Impressions Chest X-Ray 08/22/16 20:25 IMPRESSION: Interval removal right-sided PICC. Otherwise no significant change compared to prior study with stable cardiomegaly, perihilar opacities and mild vascular congestion. D/ / Zander Jean MD / Zander Jean MD Interpreting Provider: Zander Jean MD Consult Discharge Plan - Plan Instructions: Potassium Chloride (By mouth), Nystatin (On the skin), Amoxicillin/Clavulanate Potassium (By mouth), Cellulitis (DC), Sepsis (DC), Anemia (GEN), Pneumonia (DC) Additional Instructions: Mechanically altered diet with nectar thick liquids recommended. Recommend Modified Barium Swallow Study as outpatient. Referrals: NO,PCP [Primary Care Provider] - Prescriptions: Amoxicillin/Clavulanate [Augmentin] 875 mg PO BIDWM #14 tablet Nystatin POWDER [Nystop] 1 appl TP BID PRN #1 bottle PRN Reason: Rash Potassium Chloride 10 meq PO DAILY #30 tab.er.prt <Ha David P - Last Filed: 08/24/16 18:37> Date of Encounter: 08/24/16 Time of Encounter: 16:56 - Constitutional Vitals: Temp Pulse Resp BP Pulse Ox 96.3 F L 72 18 88/67 88 08/23/16 15:53 08/23/16 15:53 08/23/16 16:41 08/23/16 15:53 08/23/16 16:41 Internal Medicine: Result - Labs CBC & Chem 7: 08/24/16 05:02 08/24/16 05:02 Labs: Short CBC 08/23/16 Range/Units 11:10 WBC 12.9 H (4.3-11.1) K/mcL Hgb 9.4 L (12.9-16.9) g/dL Hct 34.0 L (37.5-50.1) % Plt Count 262 (140-400) K/mcL Neutrophils # 10.1 H (1.6-8.9) K/mcL BMP 08/23/16 08/23/16 06:53 11:10 Sodium 146 H 145 Potassium 5.0 H D 4.9 H Chloride 112 H 111 H Carbon Dioxide 23 25 BUN 87 H 91 H Creatinine 3.09 H 3.10 H Glucose 104 H 91 Calcium 9.0 9.0 Liver Function 08/23/16 08/23/16 Range/Units 06:53 11:10 Total Bilirubin 0.3 (0.2-1.2) mg/dL AST 15 (5-34) Units/L ALT 34 (0-55) Units/L Alkaline Phosphatase 97 (38-126) Units/L Albumin 2.4 L 2.5 L (3.5-5.0) g/dL - ABG Interpretation ABG results: ABG ABG pH 7.32 pH Units (7.32-7.45) 08/17/16 04:20 ABG pCO2 55 mmHg (35-45) H 08/17/16 04:20 ABG pO2 76 mmHg (85-104) L 08/17/16 04:20 ABG O2 Saturation 94 % (95-98) L 08/17/16 04:20 PT/INR, D-dimer PT 14.0 Seconds (9.4-12.1) H 08/08/16 21:17 - Impressions Impressions Chest X-Ray 08/22/16 20:25 IMPRESSION: Interval removal right-sided PICC. Otherwise no significant change compared to prior study with stable cardiomegaly, perihilar opacities and mild vascular congestion. D/ / Zander Jean MD / Zander Jean MD Interpreting Provider: Zander Jean MD - Attending Attestation I examined this patient and my medical decision-making was reviewed with the RADIOCOMMUNICATIONS TECHNICIAN/PA/Advanced Practice Nurse/Resident Physician. I agree with the documented findings, disposition and treatment plan as described except to the extent set forth below.
--- NOTE | 2016-08-23 08:53 | Nephrology Progress Note ---
Date of Encounter: 08/23/16 Time of Encounter: 08:51 - Assessment and Plan (1) Acute kidney failure, unspecified Current Visit: Yes Status: Acute Patient has acute kidney injury in the setting of nephrotoxic antibiotics. He also was shown to have increased urine eosinophils raising the possibility of acute interstitial nephritis. Patient's renal function is worse today. His Edwards catheter was removed yesterday. We will check a bladder scan to make sure he is not retaining urine. Also repeat the serum creatinine. If his creatinine continues to worsen he may require a kidney biopsy. Qualifiers: Acute renal failure type: unspecified Qualified Code(s): N17.9 - Acute kidney failure, unspecified (2) Wound, open, lower limb with complication Current Visit: Yes Status: Chronic Qualifiers: Encounter type: subsequent encounter Laterality: unspecified laterality Qualified Code(s): S81.809D - Unspecified open wound, unspecified lower leg, subsequent encounter (3) Morbid obesity with BMI of 50.0-59.9, adult Current Visit: Yes Status: Chronic Subjective Principal diagnosis: Respiratory failure, sepsis, cellulitis Interval history: Patient voices no new complaints. His renal function today is worse compared to yesterday. It is unclear why. Objective - Vital Signs Vital signs: Vital Signs Temp Pulse Resp BP Pulse Ox 08/23/16 07:29 96 F L 84 16 90/52 96 08/23/16 03:45 24 97 08/23/16 03:24 98.4 F 85 24 93/65 95 08/23/16 00:11 98.7 F 87 31 102/60 90 08/22/16 22:06 26 95 08/22/16 20:55 18 91 08/22/16 20:49 98.0 F 83 22 115/76 96 08/22/16 12:02 97.6 F 84 16 118/71 97 08/22/16 10:45 18 93 Intake and Output 08/22/16 08/23/16 08/23/16 23:59 07:59 15:59 Intake Total 0 / 0 Output Total 300 / 300 Balance -300 / -300 0 / 0 Intake: Oral 0 / 0 Output: Catheter 300 / 300 Other: Stool Size Large Copious Stool Consistency liquid Stool Characteristics Foamy Stool Color Brown Brown Black Yellow # Voids 1 # Urine Diapers 3 # Bowel Movements 3 - General Appearance Exam: Patient is resting comfortably. Lungs upper airway rhonchi. Heart regular rate and rhythm. Abdomen is obese. Lower extremity edema as before. Right lower extremity has a wound dressing in place. - Lab 08/22/16 05:30 08/23/16 06:53 Most recent lab results ABG pH 7.32 pH Units (7.32-7.45) 08/17/16 04:20 ABG pCO2 55 mmHg (35-45) H 08/17/16 04:20 ABG pO2 76 mmHg (85-104) L 08/17/16 04:20 ABG HCO3 28.3 mEQ/L (21-27) H 08/17/16 04:20 ABG O2 Saturation 94 % (95-98) L 08/17/16 04:20 Calcium 9.0 mg/dL (8.6-10.8) 08/23/16 06:53 Phosphorus 7.8 mg/dL (2.3-4.7) H 08/18/16 04:20 Magnesium 2.3 mg/dL (1.6-2.6) 08/20/16 04:35 Urine Creatinine 46 mg/dL 08/14/16 04:03 Urine Sodium < 20.0 mEq/L 08/14/16 04:03 Consult Discharge Plan - Plan Instructions: Potassium Chloride (By mouth), Nystatin (On the skin), Amoxicillin/Clavulanate Potassium (By mouth), Cellulitis (DC), Sepsis (DC), Anemia (GEN), Pneumonia (DC) Additional Instructions: Mechanically altered diet with nectar thick liquids recommended. Recommend Modified Barium Swallow Study as outpatient. Complete 7 day course of antibiotics. Repeat CBC and BMP in 1 week Followup with Primary Care Provider in the next week or sooner if needed. Referrals: NO,PCP [Primary Care Provider] - Prescriptions: Amoxicillin/Clavulanate [Augmentin] 875 mg PO BIDWM #14 tablet Nystatin POWDER [Nystop] 1 appl TP BID PRN #1 bottle PRN Reason: Rash Potassium Chloride 10 meq PO DAILY #30 tab.er.prt
[2016-08-23] MEDS: Ampicillin/Sulbactam 1,500 MG in 0.9 % Sodium Chloride Mini Bag 100 ML IVPB SCH ×2 (09:53→22:55)
[2016-08-23] MEDS: Folic Acid 1 MG TABLET PO SCH (09:58)
[2016-08-23] MEDS: Budesonide/Formoterol 160/4.5 MDI IH SCH ×2 (10:22→22:00)
[2016-08-23 11:16] LABS: Basophils % 0.2 %; Eosinophils # 0.5 K/mcL (0.0-0.6); Eosinophils % 3.5 %; Hemoglobin 9.4 g/dL (12.9-16.9); Immature Granulocytes % 0.6 % (0-4); Lymphocytes % 7.6 %; Mean Corpuscular HGB Conc 27.6 g/dL (31.6-35.5); Mean Corpuscular Hemoglobin 25.5 pg (28.0-33.3); Mean Corpuscular Volume 92.4 fL (83.0-100.0); Mean Platelet Volume 9.7 fL (9.4-12.4); Monocytes # 1.3 K/mcL (0.0-1.3); Monocytes % 9.9 %; Platelet Count 262 K/mcL (140-400); Red Blood Count 3.68 M/mcL (4.19-5.50); Red Cell Distribution Width 16.1 % (11.5-14.5); Segmented Neutrophils % 78.2 %
[2016-08-23 11:17] LABS: Neutrophils # 10.1 K/mcL (1.6-8.9)
[2016-08-23 11:28] LABS: Albumin 2.5 g/dL (3.5-5.0); Potassium 4.9 mEq/L (3.5-4.5)
[2016-08-23] MEDS: Famotidine 20 MG TABLET PO SCH (12:40)
[2016-08-23] MEDS ORDERED: Albumin 25% 25gram/100mL 25 GM/100 ML IV.SOLN IVPB ONE ×2 (14:32→18:53)
[2016-08-23] MEDS ORDERED: Vancomycin 1,500 MG in D5% in Water 250 ML IVPB ONE (15:33)
[2016-08-23] MEDS ORDERED: Vancomycin 1 EACH in D5% in Water 250 ML IVPB SCH (16:00)
[2016-08-23 18:36] LABS: Vancomycin,Random 5.5 mcg/mL
[2016-08-24] MEDS: *HR* Heparin 5,000 UNIT/ML VIAL SQ SCH ×4 (04:22→17:36)
[2016-08-24] MEDS: Ipratropium/Albuterol Neb 3 ML IH SCH ×4 (04:51→21:19)
[2016-08-24 06:11] LABS: Calcium 9.2 mg/dL (8.6-10.8); Potassium 5.4 mEq/L (3.5-4.5)
[2016-08-24 06:26] LABS: Hematocrit 33.1 % (37.5-50.1); Hemoglobin 9.2 g/dL (12.9-16.9); Mean Corpuscular HGB Conc 27.8 g/dL (31.6-35.5); Mean Corpuscular Hemoglobin 25.2 pg (28.0-33.3); Mean Corpuscular Volume 90.7 fL (83.0-100.0); Platelet Count 260 K/mcL (140-400); Red Blood Count 3.65 M/mcL (4.19-5.50)
[2016-08-24 06:27] LABS: Basophils # 0.1 K/mcL (0.0-0.2); Basophils % 0.6 %; Eosinophils # 0.6 K/mcL (0.0-0.6); Eosinophils % 6.2 %; Lymphocytes # 1.2 K/mcL (0.6-4.6); Lymphocytes % 13.3 %; Monocytes # 1.3 K/mcL (0.0-1.3); Monocytes % 14.3 %; Neutrophils # 5.7 K/mcL (1.6-8.9)
[2016-08-24 06:28] LABS: Hypochromasia Present (Not Present); Platelet Estimate Normal (Normal)
--- NOTE | 2016-08-24 08:24 | Nephrology Progress Note ---
Date of Encounter: 08/24/16 Time of Encounter: 08:22 - Assessment and Plan (1) Acute kidney failure, unspecified Current Visit: Yes Status: Acute Patient has acute kidney injury in the setting of nephrotoxic antibiotics. He also was shown to have increased urine eosinophils raising the possibility of acute interstitial nephritis. I am also concerned about some type of bladder obstruction. I am going to place an order to have the Edwards catheter replaced. He may require urology to place a catheter since apparently there was difficulty when the catheter was placed previously. Qualifiers: Acute renal failure type: unspecified Qualified Code(s): N17.9 - Acute kidney failure, unspecified (2) Wound, open, lower limb with complication Current Visit: Yes Status: Chronic Qualifiers: Encounter type: subsequent encounter Laterality: unspecified laterality Qualified Code(s): S81.809D - Unspecified open wound, unspecified lower leg, subsequent encounter (3) Morbid obesity with BMI of 50.0-59.9, adult Current Visit: Yes Status: Chronic Subjective Principal diagnosis: Respiratory failure, sepsis, cellulitis Interval history: The patient is clinically deteriorating. He is more hypotensive. His azotemia continues to worsen. He has no recorded urine output. Objective - Vital Signs Vital signs: Vital Signs Temp Pulse Resp BP Pulse Ox 08/24/16 07:33 97.8 F 76 18 84/57 96 08/24/16 03:00 97.4 F L 66 19 88/60 96 08/23/16 23:54 96.6 F L 72 21 85/65 90 08/23/16 22:00 20 87 08/23/16 19:00 97.5 F L 73 20 96/60 93 08/23/16 16:41 18 88 08/23/16 15:53 96.3 F L 72 18 88/67 84 08/23/16 10:22 16 96 Intake and Output 08/23/16 08/24/16 08/24/16 23:59 07:59 15:59 Intake Total 0 / 0 60 / 60 Output Total 0 / 0 0 / 0 Balance 0 / 0 60 / 60 Intake: Oral 0 / 0 60 / 60 Output: Urine 0 / 0 0 / 0 Other: Stool Size Moderate Stool Consistency soft Stool Color Brown # Bowel Movement Diapers 1 Weight 110.4 kg Patient Weight 08/24/16 23:59 Weight 110.4 kg - General Appearance Exam: Patient is alert. Blood pressure is 84/57. Lungs diminished breath sounds. Heart regular rate and rhythm. Abdomen demonstrates suprapubic tenderness. He has lower extremity swelling. - Lab 08/24/16 05:02 08/24/16 05:02 Most recent lab results ABG pH 7.32 pH Units (7.32-7.45) 08/17/16 04:20 ABG pCO2 55 mmHg (35-45) H 08/17/16 04:20 ABG pO2 76 mmHg (85-104) L 08/17/16 04:20 ABG HCO3 28.3 mEQ/L (21-27) H 08/17/16 04:20 ABG O2 Saturation 94 % (95-98) L 08/17/16 04:20 Calcium 9.2 mg/dL (8.6-10.8) 08/24/16 05:02 Phosphorus 8.0 mg/dL (2.3-4.7) H 08/23/16 11:10 Magnesium 2.3 mg/dL (1.6-2.6) 08/20/16 04:35 Urine Creatinine 46 mg/dL 08/14/16 04:03 Urine Sodium < 20.0 mEq/L 08/14/16 04:03 Consult Discharge Plan - Plan Instructions: Potassium Chloride (By mouth), Nystatin (On the skin), Amoxicillin/Clavulanate Potassium (By mouth), Cellulitis (DC), Sepsis (DC), Anemia (GEN), Pneumonia (DC) Additional Instructions: Mechanically altered diet with nectar thick liquids recommended. Recommend Modified Barium Swallow Study as outpatient. Referrals: NO,PCP [Primary Care Provider] - Prescriptions: Amoxicillin/Clavulanate [Augmentin] 875 mg PO BIDWM #14 tablet Nystatin POWDER [Nystop] 1 appl TP BID PRN #1 bottle PRN Reason: Rash Potassium Chloride 10 meq PO DAILY #30 tab.er.prt
--- NOTE | 2016-08-24 08:37 | Internal Med Progress Note ---
<Tristen Castañeda - Last Filed: 08/24/16 11:14> Date of Encounter: 08/24/16 Time of Encounter: 08:40 - Assessment and plan (1) Respiratory failure Current Visit: Yes Status: Acute Assessment and plan: Concern for recurring aspiration, evaluated by speech. Per TURN MACHINE OPERATOR: Diet modified and recommending outpatient modified barium swallow study. Patient with Prader Willi syndrome, with hyperphagia and food-seeking behaviors. Reported emesis and hypoxia on 08/22/16, likely aspirated. Started on Unasyn for antibiotic coverage. Continue to monitor saturation and titrate as needed. Rales and rhonchi present on exam, but improved from yesterday. Qualifiers: Chronicity: acute on chronic Respiratory failure complication: hypoxia and hypercapnia Qualified Code(s): J96.21 - Acute and chronic respiratory failure with hypoxia; J96.22 - Acute and chronic respiratory failure with hypercapnia (2) Leukocytosis Current Visit: Yes Status: Acute Assessment and plan: Improved, WBC 12.9 >8.8 Concern for aspiration pneumonia, on Unasyn Concern for infiltrated IV, cultures pending, started on Vancomycin. Monitoring labs and vitals. Qualifiers: Leukocytosis type: unspecified Qualified Code(s): D72.829 - Elevated white blood cell count, unspecified (3) Chronic wound of extremity Current Visit: Yes Status: Chronic Assessment and plan: Continue wound care. Previously MRSA positive. Treatment with gentamicin and santyl. (4) AIN (acute interstitial nephritis) Current Visit: Yes Status: Acute Assessment and plan: Worsening renal function, Creatinine 3.48 today, normal on 08/09/16 at 0.97 and continued to rise since. Albumin given with concern for third spacing of fluid. Monitor UOP. Strict I/Os Patient restarted on Vancomycin for concerns of infiltrated IV/infection. Blood cultures pending and vanc started. Plan discussion with Medicine service, pharmacist, and nephrology about best antibiotics for treatment in the setting of kidney injury. (5) Urinary retention Current Visit: Yes Status: Acute Assessment and plan: Velasquez catheter removed on 08/22/16, which had been placed shortly after admission (08/12/16). Abdomen tender to palpation. 3 voids noted yesterday, but no volumes recorded as patient is incontinent. Though no UOP noted overnight and Creatinine continues to rise. Bladder scan reported as negative. Urology consulted to replace velasquez, spoke to Dr. Connor. This was noted to be a very difficult velasquez placement previously, likely will require scope guidance. Once velasquez is placed this is not to be removed unless Urology aware, patient will likely need outpatient follow up prior. Appreciate recommendations and input from Urology. (6) Anemia Current Visit: No Status: Chronic Assessment and plan: Monitoring H/H. Stable at 8-9, no active bleeding noted. Qualifiers: Anemia type: iron deficiency Iron deficiency anemia type: unspecified iron deficiency Qualified Code(s): D50.9 - Iron deficiency anemia, unspecified (7) Morbid obesity with BMI of 60.0-69.9, adult Current Visit: Yes Status: Chronic Assessment and plan: Supportive care. (8) 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 Assessment and plan: Supportive care. (9) Debility, unspecified Current Visit: Yes Status: Chronic Assessment and plan: Supportive care. D/C planning - initial plan was to go home with patient's sister; current plan to return to [facility] pending ramp construction at sister's. (10) Hypotension Current Visit: No Status: Acute Assessment and plan: SBP BP for the past 24 hours stable in the 80's. Previously SBP avg 110-130. Concern for worsening infection/sepsis/septic shock. Patient requiring closer monitoring. Discussed patient's care with attending and ICU, will transfer patient for further management. Qualifiers: Hypotension type: other hypotension type Qualified Code(s): I95.89 - Other hypotension - Time Spent With Patient less than 15 minutes - Subjective Interval history: Mr. Junior was seen and examined sleeping in bed this AM. Patient saturation 99% on 7L O2 via nasal cannula, though it had fallen from is nose. Patient easily aroused, stated his abdomen hurt and he did not not want me examining his right arm. Denied pain or discomfort of left arm. - Constitutional Vitals: Temp Pulse Resp BP Pulse Ox 97.8 F 76 18 84/57 96 08/24/16 07:33 08/24/16 07:33 08/24/16 07:33 08/24/16 07:33 08/24/16 07:33 General appearance: Present: A&O X 1, morbidly obese, no acute distress, answers questions appropriately - Head Head exam: Present: atraumatic, normocephalic - Eye Eye exam: Present: conjuntiva pink - ENT ENT exam: Present: mucous membranes dry - Respiratory Respiratory exam: Present: rales, rhonchi - Cardiovascular Cardiovascular exam: Present: RRR - GI/Abdominal GI/Abdominal exam: Present: distended, soft, tenderness. Absent: guarding - Extremities Exam Additional comments: BLE edema with erythema, wounds currently wrapped. Extremities warm, dry. - Neurological Exam Neurological exam: Present: alert, altered - Psychiatric Psychiatric exam: Present: agitated - Skin Skin exam: Present: dry, warm Internal Medicine: Result - Labs CBC & Chem 7: 08/24/16 05:02 08/24/16 05:02 Labs: Short CBC 08/23/16 08/24/16 Range/Units 11:10 05:02 WBC 12.9 H 8.8 (4.3-11.1) K/mcL Hgb 9.4 L 9.2 L (12.9-16.9) g/dL Hct 34.0 L 33.1 L (37.5-50.1) % Plt Count 262 260 (140-400) K/mcL Neutrophils # 10.1 H 5.7 (1.6-8.9) K/mcL BMP 08/23/16 08/24/16 11:10 05:02 Sodium 145 142 Potassium 4.9 H 5.4 H Chloride 111 H 106 Carbon Dioxide 25 22 BUN 91 H 92 H Creatinine 3.10 H 3.48 H Glucose 91 96 Calcium 9.0 9.2 Liver Function 08/23/16 Range/Units 11:10 Albumin 2.5 L (3.5-5.0) g/dL - ABG Interpretation ABG results: ABG ABG pH 7.32 pH Units (7.32-7.45) 08/17/16 04:20 ABG pCO2 55 mmHg (35-45) H 08/17/16 04:20 ABG pO2 76 mmHg (85-104) L 08/17/16 04:20 ABG O2 Saturation 94 % (95-98) L 08/17/16 04:20 PT/INR, D-dimer PT 14.0 Seconds (9.4-12.1) H 08/08/16 21:17 Consult Discharge Plan - Plan Instructions: Potassium Chloride (By mouth), Nystatin (On the skin), Amoxicillin/Clavulanate Potassium (By mouth), Cellulitis (DC), Sepsis (DC), Anemia (GEN), Pneumonia (DC) Additional Instructions: Mechanically altered diet with nectar thick liquids recommended. Recommend Modified Barium Swallow Study as outpatient. Referrals: NO,PCP [Primary Care Provider] - Prescriptions: Amoxicillin/Clavulanate [Augmentin] 875 mg PO BIDWM #14 tablet Nystatin POWDER [Nystop] 1 appl TP BID PRN #1 bottle PRN Reason: Rash Potassium Chloride 10 meq PO DAILY #30 tab.er.prt <Ha David - Last Filed: 08/24/16 17:30> Date of Encounter: 08/24/16 - Constitutional Vitals: Temp Pulse Resp BP Pulse Ox 97.6 F 70 16 95/67 94 08/24/16 17:22 08/24/16 16:00 08/24/16 16:00 08/24/16 16:00 08/24/16 16:00 Internal Medicine: Result - Labs CBC & Chem 7: 08/24/16 05:02 08/24/16 05:02 Labs: Short CBC 08/24/16 Range/Units 05:02 WBC 8.8 (4.3-11.1) K/mcL Hgb 9.2 L (12.9-16.9) g/dL Hct 33.1 L (37.5-50.1) % Plt Count 260 (140-400) K/mcL Neutrophils # 5.7 (1.6-8.9) K/mcL BMP 08/24/16 05:02 Sodium 142 Potassium 5.4 H Chloride 106 Carbon Dioxide 22 BUN 92 H Creatinine 3.48 H Glucose 96 Calcium 9.2 - ABG Interpretation ABG results: ABG ABG pH 7.32 pH Units (7.32-7.45) 08/17/16 04:20 ABG pCO2 55 mmHg (35-45) H 08/17/16 04:20 ABG pO2 76 mmHg (85-104) L 08/17/16 04:20 ABG O2 Saturation 94 % (95-98) L 08/17/16 04:20 PT/INR, D-dimer PT 14.0 Seconds (9.4-12.1) H 05/09/17 21:17 - Impressions Impressions KUB X-Ray 08/24/16 09:30 IMPRESSION: 1. Cardiomegaly with mild pulmonary vascular congestion, stable. 2. Normal bowel gas pattern without evidence of obstruction. D/ / 08/24/2016 11:17:33 Gabino More MD / buck Interpreting Provider: Gabino More MD - Attending Attestation I examined this patient and my medical decision-making was reviewed with the CEMENT TILE MAKER/PA/Advanced Practice Nurse/Resident Physician. I agree with the documented findings, disposition and treatment plan as described except to the extent set forth below. hypotension sepsis spoke with ICU transfer accepted. appreciated pulmonary/Critical care input.
[2016-08-24] MEDS: Folic Acid 1 MG TABLET PO SCH (09:14)
[2016-08-24] MEDS: Ampicillin/Sulbactam 1,500 MG in 0.9 % Sodium Chloride Mini Bag 100 ML IVPB SCH (09:14)
[2016-08-24] MEDS: Lactobacillus 1 EACH CAP.SPRINK PO SCH ×2 (09:14→21:42)
[2016-08-24] MEDS: Famotidine 20 MG TABLET PO SCH (09:14)
[2016-08-24] MEDS: Gentamicin Oint 15 GM TUBE TP SCH ×2 (09:22→21:46)
[2016-08-24] MEDS: Nystatin POWDER 30 GM BOTTLE TP SCH ×2 (09:22→21:46)
[2016-08-24] MEDS: Budesonide/Formoterol 160/4.5 MDI IH SCH ×2 (11:09→21:20)
[2016-08-24] MEDS ORDERED: Ondansetron ODT 4 MG TAB.RAPDIS SL PRN (12:49)
[2016-08-24] MEDS ORDERED: Vancomycin 1 EACH in D5% in Water 250 ML IVPB SCH (12:49)
[2016-08-24] MEDS ORDERED: Naloxone 0.4 MG/ML INJ IVP PRN (12:49)
[2016-08-24] MEDS ORDERED: Dextrose Gel 15 GM PO PRN ×2 (12:49)
[2016-08-24] MEDS ORDERED: Desitin (Zinc Oxide) 56 GM TUBE TP PRN (12:49)
[2016-08-24] MEDS ORDERED: Acetaminophen 325 MG TABLET PO PRN (12:49)
[2016-08-24] MEDS ORDERED: *HR* Dextrose 50 % in Water (Syg) 50 ML SYRINGE IVP PRN (12:49)
[2016-08-24] MEDS ORDERED: D5% in Water 1,000 ML IVC PRN (12:49)
--- NOTE | 2016-08-24 15:18 | Pulmonology Progress Note ---
Date of Encounter: 08/24/16 Time of Encounter: 15:01 Assessment and Plan (1) Acute on chronic respiratory failure with hypoxemia Current Visit: Yes Status: Acute patient intubated 08/10 due to hypoxemia and hypercapnia likely secondary to chronic respiratory failure secondary to cor pulmonale and OHS as well as pulmonary edema/vascular congestion extubated 08/17 emesis and possible aspiration 08/22 currently 6L NC with good oxygenation - continue to titrate as tolerated placed on Unasyn Day 2 - clinically does not appear to have pneumonia, will discontinue Unasyn and wait for blood cultures continue to monitor oxygenation/ventilation he is high risk due to potential worsening respiratory status BiPAP at night (2) STEPHANIE (acute kidney injury) Current Visit: Yes Status: Acute worsening renal function 3.48 suspected AIN with urine eosinophilia and peripheral eosinophilia from antibiotics - placed on Unasyn and Vanco for suspected infection - will discontinue Unasyn - Vanco trough reported elevated 30.3 but was informed this was not a true trough, will recheck tomorrow Nephrology has been consulted and will follow any recommendations - no indications for hemodialysis or renal biopsy renal ultrasound 08/14 did not show any acute abnormalities will continue to monitor strict I/Os velasquez catheter has been removed difficult urinary catheter insertion, required Urology (3) AIN (acute interstitial nephritis) Current Visit: Yes Status: Acute worsening STEPHANIE peripheral and urine eosinophilia to suggest AIN - suspect related to beta-lactam use which has been stopped Nephrology consulted and appreciate recommendations - not a candidate for renal bx or steroids - patient received a dose of IV solumedrol AVOID nephrotoxins (4) Chronic wound of extremity Current Visit: No Status: Chronic cellulitic changes to bilateral lower extremity chronic venous stasis MRSA positive wound contact precautions continue wound care significantly improved from prior ICU admission (5) At risk for aspiration Current Visit: Yes Status: Acute hyperphagia secondary to Prader Willi concern for possible aspiration from episode of emesis 08/22 received 2 days of Unasyn, will discontinue and await culture results (6) Difficult intravenous access Current Visit: Yes Status: Acute EPIV in left and right upper arm right PICC pulled - concern for infection - wound culture 08/23 NGTD, preliminary - empirically treated with Vancomycin for prior + MRSA wound - pharmacy to dose (7) Difficulty with insertion of urinary catheter Current Visit: Yes Status: Acute Urology consulted - difficulty placing 14F catheter on prior ICU admission (8) Cellulitis Current Visit: No Status: Acute plan as above Qualifiers: Site of cellulitis: extremity Site of cellulitis of extremity: lower extremity Laterality: unspecified laterality Qualified Code(s): L03.119 - Cellulitis of unspecified part of limb (9) Chronic anemia Current Visit: Yes Status: Chronic likely anemia of chronic disease remains stable at 9.2 (9.4) continue home iron required transfusion Hgb as low as 3.4 in the past 01/07/2016 (10) Morbid obesity with BMI of 50.0-59.9, adult Current Visit: Yes Status: Chronic secondary to Prader Willi Syndrome Nutrition consulted for diet and calorie restriction no drinks or snacks in between meals weight loss encouraged speech evaluated, ok for soft chopped diet (11) 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 hyperphagia encourage diet restrictions (12) DVT prophylaxis Current Visit: No Status: Acute heparin subq for DVT prophylaxis Subjective Principal diagnosis: Respiratory failure, sepsis, cellulitis Interval history: Jhnony Junior is a 46-year-old male with a history of cor pulmonale congestive heart failure and Prader Willi Syndrome who was transferred from [facility] to the ICU for worsening respiratory status. Patient was originally transferred out of the ICU 08/18 after resolving respiratory failure requiring intubation 8 days and successful extubation as well as improving STEPHANIE from possible AIN. In the interval, patient has been recovering well and was potentially discharged 08/22. During that day however he had episode of emesis and possible concern of aspiration. The patient reports that the food made him sick causing him to vomit. Since then his respiratory status has continued to worsen from requiring 2 L oxygen supplementation to currently 6 L. The family reports that he has not been overfed during his admission. Review of the nursing notes appears that he has been getting snacks in between meals. Unsure if he has been compliant with a strict diet. Concern for the aspiration he has been empirically treated with Unasyn as well as Vancomycin for possible central line associated bloodstream infection. Repeat blood cultures 08/24 are pending. Multiple prior blood cultures had no growth. He has been afebrile since the . He has had a persistent leukocytosis as his 13.7 however since the has been down trending to 8.8. His azotemia has worsened after plateauing to 2.48, currently is 3.48. Nephrology continues to be on board and does not recommend renal biopsy at this time. Patient was seen and examined at bedside. He reports abdominal pain. He cannot describe the pain but the family believes that is mostly due to his heparin shots. When I readdress this to the patient he does endorse that the shots hurt. Prior to his arrival to the ICU he did have a large bowel movement. He denies any chest pain, shortness of breath, nausea or vomiting. He is requesting food at this time. He is currently on 6 L nasal cannula with a saturation greater than 98%. The wounds on his bilateral lower extremities appear greatly improved for my prior examination on last admission. Review of his KUB does not reveal significant pulmonary findings. Objective PUL Vital signs: Last Vital Signs Temp 96.3 F L 08/24/16 12:15 Pulse 67 08/24/16 14:17 Resp 22 08/24/16 14:17 BP 88/49 08/24/16 14:17 Pulse Ox 100 08/24/16 14:17 General appearance: alert, agitated, other (Morbidly obese) Eyes: nonicteric, other (PERRL) ENT: oropharynx moist Effort: normal Auscultation: bilateral: other (COARSE) Cardiovascular: regular rate and rhythm Gastrointestinal: normoactive bowel sounds, soft (Obese), tender (diffuse, mainly in lower quadrants) Integumentary: erythema (chronic venous stasis ulcers to bilateral LE with cellulitic changes, L left extends from ankle to lower 1/3 thigh, R leg extends ankle to knee; diffuse excoriations to bilateral LE), other (punctate wound to the right upper arm where prior PICC was placed, no active drainage or pus) Extremities: anasarca (chronic), other (difficult to palpate pulses, wounds with serous drainage, non-odorous, oval wound to the mid right anterior singh, oval wound to lateral lower right leg extended posterior, stellate wound to the left lower leg that is nearly circumferential, ABDs placed on left knee) Musculoskeletal: ROM normal normal mental status (Appears at baseline per family), non-focal exam, pupils equal and round Midline IV to left and right upper arm, dressings are clear dry without discharge Results - Laboratory Findings CBC and BMP: 08/24/16 05:02 08/24/16 05:02 ABG ABG pH 7.32 pH Units (7.32-7.45) 08/17/16 04:20 ABG pCO2 55 mmHg (35-45) H 08/17/16 04:20 ABG pO2 76 mmHg (85-104) L 08/17/16 04:20 ABG O2 Saturation 94 % (95-98) L 08/17/16 04:20 PT/INR, D-dimer PT 14.0 Seconds (9.4-12.1) H 08/08/16 21:17 Abnormal lab findings: Abnormal lab results RBC 3.65 M/mcL (4.19-5.50) L 08/24/16 05:02 Hgb 9.2 g/dL (12.9-16.9) L 08/24/16 05:02 Hct 33.1 % (37.5-50.1) L 08/24/16 05:02 MCH 25.2 pg (28.0-33.3) L 08/24/16 05:02 MCHC 27.8 g/dL (31.6-35.5) L 08/24/16 05:02 RDW 16.0 % (11.5-14.5) H 08/24/16 05:02 Nucleated RBCs/100 WBC 0.2 /100 WBC (0) H 08/09/16 11:27 Clumped Platelets Few (Not Present) A 08/19/16 03:28 Large Platelets Present (Not Present) A 08/13/16 03:32 Polychromasia 1+ (Not Present) A 08/13/16 03:32 Hypochromasia Present (Not Present) A 08/24/16 05:02 Poikilocytosis 1+ (Not Present) A 08/13/16 03:32 Anisocytosis 1+ (Not Present) A 08/19/16 03:28 Microcytosis Present (Not Present) A 08/19/16 03:28 Ovalocytes 1+ (Not Present) A 08/13/16 03:32 PT 14.0 Seconds (9.4-12.1) H 08/08/16 21:17 ABG pCO2 55 mmHg (35-45) H 08/17/16 04:20 ABG pO2 76 mmHg (85-104) L 08/17/16 04:20 ABG HCO3 28.3 mEQ/L (21-27) H 08/17/16 04:20 ABG Total CO2 30.0 mEq/L (20-26) H 08/17/16 04:20 ABG O2 Saturation 94 % (95-98) L 08/17/16 04:20 Potassium 5.4 mEq/L (3.5-4.5) H 08/24/16 05:02 BUN 92 mg/dL (8-26) H 08/24/16 05:02 Creatinine 3.48 mg/dL (0.72-1.25) H 08/24/16 05:02 Est GFR ( Amer) 23 (> 60) L 08/24/16 05:02 Est GFR (Non-Af Amer) 19 (> 60) L 08/24/16 05:02 POC Glucose 102 (58-89) H 08/23/16 12:51 Calculated Osmolality 322 (280-300) H 08/24/16 05:02 Phosphorus 8.0 mg/dL (2.3-4.7) H 08/23/16 11:10 Albumin 2.5 g/dL (3.5-5.0) L 08/23/16 11:10 Globulin 4.3 g/dL (2.4-3.5) H 08/23/16 06:53 Albumin/Globulin Ratio 0.6 (1.1-2.2) L 08/23/16 06:53 Prealbumin 8.0 mg/dL (18.0-45.0) L 08/14/16 04:00 Ur Specimen Adequacy See below A 08/12/16 01:40 Urine Clarity Cloudy (Clear) A 08/13/16 22:00 Urine Protein 100 mg/dL (Neg-Trace) H 08/13/16 22:00 Urine Blood Moderate (Negative) H 08/13/16 22:00 Ur Leukocyte Esterase Moderate (Negative) H 08/13/16 22:00 Urine Microscopic RBC 5-15 per hpf (0-3) H 08/13/16 22:00 Urine Microscopic WBC TNTC per hpf (0-3) H 08/13/16 22:00 Ur Eosinophil Smear 10 % (None Seen) H 08/15/16 12:00 Ur Squamous Epith Cells Many per lpf (None-Few) H 08/13/16 22:00 Urine Yeast Few per hpf (None Seen) H 08/13/16 22:00 Ur Culture Indicated? YES (NO) A 08/13/16 22:00 Vancomycin Trough 30.3 mcg/mL (10-20) H* 08/24/16 05:02 Acetaminophen < 1.0 mcg/mL (10-30) L 08/11/16 14:55 EBV Capsid Ag IgG Ab >750.0 U/mL (0.0-21.9) H 08/09/16 11:27 EBV Nuclear Ag Ab Titer 245.0 U/mL (0.0-21.9) H 08/09/16 11:27 - Microbiology Findings Microbiology Findings: Microbiology, Last 48 Hours 08/23/16 17:02 Wound Culture - Preliminary Catheter Site No growth. - Diagnostic Findings Chest x-ray: report reviewed, image reviewed Additional studies: Knee X-Ray 08/08/16 12:01 IMPRESSION: No fracture or acute bony process D/ / Sincere Quintero MD / Sincere Quintero MD Interpreting Provider: Sincere Quintero MD Abdomen Ultrasound 08/09/16 08:00 IMPRESSION: 1. Limited examination due to patient's pain. 2. Suboptimal evaluation of the kidney and pancreas. 3. Status post cholecystectomy. D/ / Lorena Navas MD / Lorena Navas MD Interpreting Provider: Lorena Navas MD Retroperitoneum Ultrasound 08/14/16 14:59 IMPRESSION: Severely limited study with regards to visualization of the kidneys and bladder secondary to patient's body habitus. The right kidney is partially seen and appears normal in size and overall echogenicity. The left kidney and bladder were not visualized. D/ / Lisandro Pickard MD / Lisandro Pickard MD Interpreting Provider: Lisandro Pickard MD Chest X-Ray 08/22/16 20:25 IMPRESSION: Interval removal right-sided PICC. Otherwise no significant change compared to prior study with stable cardiomegaly, perihilar opacities and mild vascular congestion. D/ / Zander Jean MD / Zander Jean MD Interpreting Provider: Zander Jean MD X-Ray 08/24/16 09:30 IMPRESSION: 1. Cardiomegaly with mild pulmonary vascular congestion, stable. 2. Normal bowel gas pattern without evidence of obstruction. D/ / 08/24/2016 11:17:33 Gabino More MD / buck Interpreting Provider: Gabino More MD - Clinical Findings Intake & Output: Intake & Output 08/23/16 08/24/16 08/24/16 23:59 07:59 15:59 Intake Total 100 / 100 60 / 60 0 / 0 Output Total 0 / 0 0 / 0 Balance 100 / 100 60 / 60 0 / 0 Weight 110.4 kg 109.5 kg Consult Discharge Plan - Plan Instructions: Potassium Chloride (By mouth), Nystatin (On the skin), Amoxicillin/Clavulanate Potassium (By mouth), Cellulitis (DC), Sepsis (DC), Anemia (GEN), Pneumonia (DC) Additional Instructions: Mechanically altered diet with nectar thick liquids recommended. Recommend Modified Barium Swallow Study as outpatient. Referrals: NO,PCP [Primary Care Provider] - Prescriptions: Amoxicillin/Clavulanate [Augmentin] 875 mg PO BIDWM #14 tablet Nystatin POWDER [Nystop] 1 appl TP BID PRN #1 bottle PRN Reason: Rash Potassium Chloride 10 meq PO DAILY #30 [email or web address]
[2016-08-24] MEDS ORDERED: *HR* Midazolam HCl 5 MG/5 ML VIAL IVP ONE ×2 (16:45→16:50)
[2016-08-24] MEDS ORDERED: *HR* FentaNYL (PF) 100 MCG/2 ML VIAL IVP ONE (16:45)
[2016-08-24] MEDS ORDERED: *HR* FentaNYL (PF) 100 MCG/2 ML VIAL ONE (16:50)
[2016-08-24] MEDS ORDERED: Ampicillin/Sulbactam 1,500 MG in 0.9 % Sodium Chloride Mini Bag 100 ML IVPB SCH (22:00)
[2016-08-25 01:18] LABS: Calcium 9.1 mg/dL (8.6-10.8); Potassium 5.8 mEq/L (3.5-4.5)
[2016-08-25] MEDS: *HR* Heparin 5,000 UNIT/ML VIAL SQ SCH ×3 (01:30→16:49)
[2016-08-25] MEDS: Ipratropium/Albuterol Neb 3 ML IH SCH ×4 (03:21→22:40)
--- NOTE | 2016-08-25 06:53 | Pulmonology Progress Note ---
Date of Encounter: 08/25/16 Time of Encounter: 06:53 Assessment and Plan (1) Acute on chronic respiratory failure with hypoxemia Current Visit: Yes Status: Acute patient intubated 08/10 due to hypoxemia and hypercapnia likely secondary to chronic respiratory failure secondary to cor pulmonale and OHS as well as pulmonary edema/vascular congestion extubated 08/17 emesis and possible aspiration 08/22 currently 6L NC with good oxygenation - continue to titrate as tolerated placed on Unasyn Day 2 - clinically does not appear to have pneumonia, will discontinue Unasyn and wait for blood cultures continue to monitor oxygenation/ventilation he is high risk due to potential worsening respiratory status BiPAP at night (2) STEPHANIE (acute kidney injury) Current Visit: Yes Status: Acute worsening renal function 3.77 (3.48) suspected AIN with urine eosinophilia and peripheral eosinophilia from antibiotics - placed on Unasyn and Vanco for suspected infection - will discontinue Unasyn - Vanco trough reported elevated 30.3 but was informed this was not a true trough, recheck random 25.6 Nephrology has been consulted and will follow any recommendations - recommend dialysis, possibly tomorrow 08/26 - velasquez catheter placed 08/24, UOP 80 cc renal ultrasound 08/14 did not show any acute abnormalities will continue to monitor strict I/Os (3) AIN (acute interstitial nephritis) Current Visit: Yes Status: Acute worsening STEPHANIE peripheral and urine eosinophilia to suggest AIN - suspect related to beta-lactam use which has been stopped Nephrology consulted and appreciate recommendations - not a candidate for renal bx or steroids - patient received a dose of IV solumedrol AVOID nephrotoxins (4) Hyperkalemia Current Visit: Yes Status: Acute secondary to worsening renal function K 6.0 EKG did not show peaked T waves or widening of QRS Nephrology consulted - recommend dialysis possibly tomorrow - no EKG changes Ca Gluconate not given - albuterol, D50 and Insulin 10U given - kayexlate 30 mg ordered - high dose Lasix 80 mg ordered (5) Hypotension Current Visit: Yes Status: Acute continues to have SBP <90 but MAP >65 will monitor fluid status Qualifiers: Hypotension type: unspecified hypotension type Qualified Code(s): I95.9 - Hypotension, unspecified (6) Goals of care, counseling/discussion Current Visit: Yes Status: Acute sister Kerri is POA discussed recent events and long-term goals of care, wish for FULL CODE discussion regarding potential dialysis, risks and benefits discussed with family - since her and father have dialysis with Dr. Heaton for the past 3 years she has experienced dialysis and does not believe Facundo would wish to go through with it - Kerri however would like Dr. Heaton to take care of the patient since she is more familiar with her - will discuss with the following Stranding Supervisor Dr. Heaton and Dr. Heaton Discussed with Stranding Supervisortess to transfer care, consult placed for Dr. Heaton (7) Chronic wound of extremity Current Visit: No Status: Chronic cellulitic changes to bilateral lower extremity chronic venous stasis MRSA positive wound contact precautions continue wound care significantly improved from prior ICU admission (8) At risk for aspiration Current Visit: Yes Status: Acute hyperphagia secondary to Prader Willi concern for possible aspiration from episode of emesis 08/22 received 2 days of Unasyn, will discontinue and await culture results (9) Difficult intravenous access Current Visit: Yes Status: Acute EPIV in left and right upper arm right PICC pulled - concern for infection - wound culture 08/23 NGTD, preliminary - empirically treated with Vancomycin for prior + MRSA wound - pharmacy to dose may need to consult IR for possible temporary HD catheter (10) Difficulty with insertion of urinary catheter Current Visit: Yes Status: Acute Urology consulted - difficulty placing 14F catheter on prior ICU admission (11) Cellulitis Current Visit: No Status: Acute plan as above Qualifiers: Site of cellulitis: extremity Site of cellulitis of extremity: lower extremity Laterality: unspecified laterality Qualified Code(s): L03.119 - Cellulitis of unspecified part of limb (12) Chronic anemia Current Visit: Yes Status: Chronic likely anemia of chronic disease remains stable at 9.2 (9.4) continue home iron required transfusion Hgb as low as 3.4 in the past 01/07/2016 (13) Morbid obesity with BMI of 50.0-59.9, adult Current Visit: Yes Status: Chronic secondary to Prader Willi Syndrome Nutrition consulted for diet and calorie restriction no drinks or snacks in between meals weight loss encouraged speech evaluated, tess for soft chopped diet (14) 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 hyperphagia encourage diet restrictions (15) DVT prophylaxis Current Visit: No Status: Acute heparin subq for DVT prophylaxis Subjective Principal diagnosis: Respiratory failure, sepsis, cellulitis Interval history: Jhonny Junior is a 46-year-old male with a history of cor pulmonale congestive heart failure and Prader Willi Syndrome who was transferred from [facility] to the ICU for worsening respiratory status. Patient was originally transferred out of the ICU 08/18 after resolving respiratory failure requiring intubation 8 days and successful extubation as well as improving STEPHANIE from possible AIN. In the interval, patient has been recovering well and was potentially discharged 08/22. During that day however he had episode of emesis and possible concern of aspiration. The patient reports that the food made him sick causing him to vomit. Since then his respiratory status has continued to worsen from requiring 2 L oxygen supplementation to currently 6 L. The family reports that he has not been overfed during his admission. Review of the nursing notes appears that he has been getting snacks in between meals. Unsure if he has been compliant with a strict diet. Concern for the aspiration he has been empirically treated with Unasyn as well as Vancomycin for possible central line associated bloodstream infection. Repeat blood cultures 08/24 are pending. Multiple prior blood cultures had no growth. He has been afebrile since the . He has had a persistent leukocytosis as his 13.7 however since the has been down trending to 8.8. His azotemia has worsened after plateauing to 2.48, currently is 3.48. Nephrology continues to be on board and does not recommend renal biopsy at this time. Patient was seen and examined at bedside. He reports abdominal pain. He cannot describe the pain but the family believes that is mostly due to his heparin shots. When I readdress this to the patient he does endorse that the shots hurt. Prior to his arrival to the ICU he did have a large bowel movement. He denies any chest pain, shortness of breath, nausea or vomiting. He is requesting food at this time. He is currently on 6 L nasal cannula with a saturation greater than 98%. The wounds on his bilateral lower extremities appear greatly improved for my prior examination on last admission. Review of his KUB does not reveal significant pulmonary findings. Objective PUL Vital signs: Last Vital Signs Temp 96.9 F L 08/25/16 04:00 Pulse 67 08/25/16 06:00 Resp 18 08/25/16 06:00 BP 82/65 08/25/16 06:00 Pulse Ox 97 08/25/16 06:00 General appearance: no acute distress, alert, other (Morbidly obese) Eyes: nonicteric, other (PERRL) ENT: oropharynx moist Neck: supple Effort: normal Auscultation: bilateral: other (COARSE) Cardiovascular: regular rate and rhythm Gastrointestinal: normoactive bowel sounds, soft (Obese), tender (Diffuse) Integumentary: erythema (chronic venous stasis ulcers to bilateral LE with cellulitic changes, L left extends from ankle to lower 1/3 thigh, R leg extends ankle to knee; diffuse excoriations to bilateral LE), cellulitis Extremities: anasarca (Chronic), other (punctate wound to the right upper arm where prior PICC was placed, no active drainage or pus; difficult to palpate pulses, wounds with serous drainage, non-odorous, oval wound to the mid right anterior singh, oval wound to lateral lower right leg extended posterior, stellate wound to the left lower leg that is nearly circumferential, ADAPTIC placed on left knee) Musculoskeletal: ROM normal normal mental status, non-focal exam, pupils equal and round Midline IV to left and right upper arm, dressings are clear dry without discharge Results - Laboratory Findings CBC and BMP: 08/25/16 07:49 08/25/16 09:14 ABG ABG pH 7.32 pH Units (7.32-7.45) 08/17/16 04:20 ABG pCO2 55 mmHg (35-45) H 08/17/16 04:20 ABG pO2 76 mmHg (85-104) L 08/17/16 04:20 ABG O2 Saturation 94 % (95-98) L 08/17/16 04:20 PT/INR, D-dimer PT 14.0 Seconds (9.4-12.1) H 08/08/16 21:17 Abnormal lab findings: Abnormal lab results RBC 3.65 M/mcL (4.19-5.50) L 08/24/16 05:02 Hgb 9.2 g/dL (12.9-16.9) L 08/24/16 05:02 Hct 33.1 % (37.5-50.1) L 08/24/16 05:02 MCH 25.2 pg (28.0-33.3) L 08/24/16 05:02 MCHC 27.8 g/dL (31.6-35.5) L 08/24/16 05:02 RDW 16.0 % (11.5-14.5) H 08/24/16 05:02 Nucleated RBCs/100 WBC 0.2 /100 WBC (0) H 08/09/16 11:27 Clumped Platelets Few (Not Present) A 08/19/16 03:28 Large Platelets Present (Not Present) A 08/13/16 03:32 Polychromasia 1+ (Not Present) A 08/13/16 03:32 Hypochromasia Present (Not Present) A 08/24/16 05:02 Poikilocytosis 1+ (Not Present) A 08/13/16 03:32 Anisocytosis 1+ (Not Present) A 08/19/16 03:28 Microcytosis Present (Not Present) A 08/19/16 03:28 Ovalocytes 1+ (Not Present) A 08/13/16 03:32 PT 14.0 Seconds (9.4-12.1) H 08/08/16 21:17 ABG pCO2 55 mmHg (35-45) H 08/17/16 04:20 ABG pO2 76 mmHg (85-104) L 08/17/16 04:20 ABG HCO3 28.3 mEQ/L (21-27) H 08/17/16 04:20 ABG Total CO2 30.0 mEq/L (20-26) H 08/17/16 04:20 ABG O2 Saturation 94 % (95-98) L 08/17/16 04:20 Potassium 5.8 mEq/L (3.5-4.5) H 08/25/16 00:50 Carbon Dioxide 16 mEq/L (19-29) L 08/25/16 00:50 BUN 97 mg/dL (8-26) H 08/25/16 00:50 Creatinine 3.77 mg/dL (0.72-1.25) H 08/25/16 00:50 Est GFR ( Amer) 21 (> 60) L 08/25/16 00:50 Est GFR (Non-Af Amer) 17 (> 60) L 08/25/16 00:50 Glucose 105 mg/dL (70-99) H 08/25/16 00:50 POC Glucose 91 (58-89) H 08/24/16 12:32 Calculated Osmolality 320 (280-300) H 08/25/16 00:50 Phosphorus 8.0 mg/dL (2.3-4.7) H 08/23/16 11:10 Albumin 2.5 g/dL (3.5-5.0) L 08/23/16 11:10 Globulin 4.3 g/dL (2.4-3.5) H 08/23/16 06:53 Albumin/Globulin Ratio 0.6 (1.1-2.2) L 08/23/16 06:53 Prealbumin 8.0 mg/dL (18.0-45.0) L 08/14/16 04:00 Ur Specimen Adequacy See below A 08/12/16 01:40 Urine Clarity Cloudy (Clear) A 08/13/16 22:00 Urine Protein 100 mg/dL (Neg-Trace) H 08/13/16 22:00 Urine Blood Moderate (Negative) H 08/13/16 22:00 Ur Leukocyte Esterase Moderate (Negative) H 08/13/16 22:00 Urine Microscopic RBC 5-15 per hpf (0-3) H 08/13/16 22:00 Urine Microscopic WBC TNTC per hpf (0-3) H 08/13/16 22:00 Ur Eosinophil Smear 10 % (None Seen) H 08/15/16 12:00 Ur Squamous Epith Cells Many per lpf (None-Few) H 08/13/16 22:00 Urine Yeast Few per hpf (None Seen) H 08/13/16 22:00 Ur Culture Indicated? YES (NO) A 08/13/16 22:00 Vancomycin Trough 25.6 mcg/mL (10-20) H* 08/25/16 05:04 Acetaminophen < 1.0 mcg/mL (10-30) L 08/11/16 14:55 EBV Capsid Ag IgG Ab >750.0 U/mL (0.0-21.9) H 08/09/16 11:27 EBV Nuclear Ag Ab Titer 245.0 U/mL (0.0-21.9) H 08/09/16 11:27 - Microbiology Findings Microbiology Findings: Microbiology, Last 48 Hours 08/23/16 17:02 Wound Culture - Preliminary Catheter Site No growth. - Clinical Findings Intake & Output: Intake & Output 08/24/16 08/24/16 08/25/16 15:59 23:59 07:59 Intake Total 0 / 0 220 / 220 250 / 250 Output Total 80 / 80 Balance 0 / 0 200 / 200 170 / 170 Weight 109.5 kg Consult Discharge Plan - Plan Instructions: Potassium Chloride (By mouth), Nystatin (On the skin), Amoxicillin/Clavulanate Potassium (By mouth), Cellulitis (DC), Sepsis (DC), Anemia (GEN), Pneumonia (DC) Additional Instructions: Mechanically altered diet with nectar thick liquids recommended. Recommend Modified Barium Swallow Study as outpatient. Referrals: NO,PCP [Primary Care Provider] - Prescriptions: Amoxicillin/Clavulanate [Augmentin] 875 mg PO BIDWM #14 tablet Nystatin POWDER [Nystop] 1 appl TP BID PRN #1 bottle PRN Reason: Rash Potassium Chloride 10 meq PO DAILY #30 tab.er.prt
--- NOTE | 2016-08-25 07:30 | Urology Procedure Note ---
Date of Encounter: 08/24/16 Time of Encounter: 17:00 Procedures:Urology - Catheter Insertion (Urinary) Prophylactic antibiotics given: No Bladder Scan/Ultrasound used before catheterization: Yes Estimated amount of urin (mLs): 0 Preparation: Povidone-Iodine Type of catheter inserted: 2 way Catheter Vietnamese Size: 16 Results: successfully catheterized-immediate flow Urine Appearance: Clear Patient tolerated procedure: well Complications: none Additional comments: again hidden penis and unable to visualize glans. able to place cath blindly. return 10cc clear urine.
[2016-08-25] MEDS: Famotidine 20 MG TABLET PO SCH (07:53)
[2016-08-25] MEDS: Folic Acid 1 MG TABLET PO SCH (07:53)
[2016-08-25] MEDS: Lactobacillus 1 EACH CAP.SPRINK PO SCH ×2 (07:53→23:00)
[2016-08-25 07:55] LABS: Basophils # 0.1 K/mcL (0.0-0.2); Basophils % 0.5 %; Eosinophils # 0.7 K/mcL (0.0-0.6); Eosinophils % 5.9 %; Hemoglobin 9.6 g/dL (12.9-16.9); Immature Granulocytes % 0.9 % (0-4); Lymphocytes # 1.6 K/mcL (0.6-4.6); Lymphocytes % 12.6 %; Mean Corpuscular HGB Conc 29.1 g/dL (31.6-35.5); Mean Corpuscular Hemoglobin 25.5 pg (28.0-33.3); Mean Corpuscular Volume 87.8 fL (83.0-100.0); Mean Platelet Volume 10.1 fL (9.4-12.4); Monocytes # 2.1 K/mcL (0.0-1.3); Neutrophils # 7.8 K/mcL (1.6-8.9); Platelet Count 252 K/mcL (140-400); Red Blood Count 3.76 M/mcL (4.19-5.50); Red Cell Distribution Width 15.9 % (11.5-14.5); Segmented Neutrophils % 63.1 %
[2016-08-25] MEDS ORDERED: Aminoglycoside Consult 1 EACH MC ONE (09:23)
[2016-08-25 09:33] LABS: Calcium 8.9 mg/dL (8.6-10.8)
[2016-08-25] MEDS ORDERED: Furosemide 80 MG in 0.9 % Sodium Chloride 50 ML IVPB ONE (09:37)
--- NOTE | 2016-08-25 09:37 | Nephrology Progress Note ---
Date of Encounter: 08/25/16 Time of Encounter: 09:25 - Assessment and Plan (1) Acute kidney injury Current Visit: Yes Status: Acute STEPHANIE most likely related to sepsis, nephrotoxins-Vanco and Zosyn. Positve urine Eos. AIN-at present not candidate for renal bx or steroids with active infection. Vanco and Zosyn stopped. Avoid nephrotoxins. Will continue to monitor. Renal fct continues to worsen. Creat 3.77. Edwards catheter placed, oliguric, documented output 20cc. The need for dialysis needs to be discussed with family/guardian. Will give high dose of Lasix 80mg to see if urine output increases. Subjective Principal diagnosis: Respiratory failure, sepsis, cellulitis Interval history: Transferred to ICU. Alert, converses, answers simple questions appropriately. Feeding self breakfast. Objective - Vital Signs Vital signs: Vital Signs Temp Pulse Resp BP Pulse Ox 08/25/16 09:00 69 16 96/70 95 08/25/16 08:00 68 16 85/60 97 08/25/16 07:10 96.6 F L 08/25/16 07:00 67 16 107/73 97 08/25/16 06:00 67 18 82/65 97 08/25/16 05:00 72 18 104/74 96 08/25/16 04:00 96.9 F L 69 22 111/72 97 08/25/16 03:00 68 20 96/49 97 08/25/16 02:00 70 24 97/64 97 08/25/16 01:00 68 18 99/41 97 08/25/16 00:00 67 20 111/65 97 08/24/16 23:00 69 22 118/81 94 08/24/16 22:00 68 13 111/79 97 08/24/16 21:00 70 20 96/64 94 08/24/16 20:05 96.1 F L 70 22 118/72 97 08/24/16 19:30 71 24 94/67 98 08/24/16 18:30 72 24 94/63 97 08/24/16 17:22 97.6 F 08/24/16 17:15 68 20 105/75 99 08/24/16 17:00 68 08/24/16 16:00 70 16 95/67 94 08/24/16 15:30 71 18 93/63 97 08/24/16 14:17 67 22 88/49 100 08/24/16 13:19 73 18 101/67 99 08/24/16 12:30 70 08/24/16 12:15 96.3 F L 70 24 93/73 98 08/24/16 11:01 70 18 148/102 96 Intake and Output 08/24/16 08/25/16 08/25/16 23:59 07:59 15:59 Intake Total 220 / 220 250 / 250 Output Total 20 130 / 130 Balance 200 / 200 120 / 120 Intake: Oral 220 / 220 250 / 250 Output: Urine 80 / 80 Catheter 50 / 50 Other: Meal Lunch Percent of Meal Consumed 100% Stool Size Small Small Stool Consistency loose soft Stool Characteristics Pasty Stool Color Brown Brown # Bowel Movements 1 - General Appearance General appearance: Present: well-developed, well-nourished, appears started age , obese EENT: Present: mucous membranes moist Neck: Present: no JVD Respiratory: Present: clear Cardiology: Present: edema, regular rate, regular rhythm Additional Comments: anasarca Gastrointestinal: Present: normoactive bowel sounds, no tenderness, no guarding Integumentary: Present: warm and dry Psychiatric: Present: mood/affect appropriate, cooperative - Lab 08/25/16 07:49 08/25/16 00:50 Most recent lab results ABG pH 7.32 pH Units (7.32-7.45) 08/17/16 04:20 ABG pCO2 55 mmHg (35-45) H 08/17/16 04:20 ABG pO2 76 mmHg (85-104) L 08/17/16 04:20 ABG HCO3 28.3 mEQ/L (21-27) H 08/17/16 04:20 ABG O2 Saturation 94 % (95-98) L 08/17/16 04:20 Calcium 9.1 mg/dL (8.6-10.8) 08/25/16 00:50 Phosphorus 8.0 mg/dL (2.3-4.7) H 08/23/16 11:10 Magnesium 2.3 mg/dL (1.6-2.6) 08/20/16 04:35 Urine Creatinine 46 mg/dL 08/14/16 04:03 Urine Sodium < 20.0 mEq/L 05/15/17 04:03 Consult Discharge Plan - Plan Instructions: Potassium Chloride (By mouth), Nystatin (On the skin), Amoxicillin/Clavulanate Potassium (By mouth), Cellulitis (DC), Sepsis (DC), Anemia (GEN), Pneumonia (DC) Additional Instructions: Mechanically altered diet with nectar thick liquids recommended. Recommend Modified Barium Swallow Study as outpatient. Referrals: NO,PCP [Primary Care Provider] - Prescriptions: Amoxicillin/Clavulanate [Augmentin] 875 mg PO BIDWM #14 tablet Nystatin POWDER [Nystop] 1 appl TP BID PRN #1 bottle PRN Reason: Rash Potassium Chloride 10 meq PO DAILY #30 tab.er.prt
[2016-08-25] MEDS ORDERED: Calcium Gluconate 2,000 MG in D5% in Water 100 ML IVPB ONE (09:55)
[2016-08-25] MEDS ORDERED: Insulin Regular, Human 100 UNIT/ML SQ ONE (09:55)
[2016-08-25] MEDS ORDERED: Albuterol 2.5 MG/3 ML NEBULIZER IH ONE (09:55)
[2016-08-25] MEDS: Gentamicin Oint 15 GM TUBE TP SCH ×2 (09:58→23:01)
[2016-08-25] MEDS ORDERED: *HR* Dextrose 50 % in Water (Syg) 50 ML SYRINGE IVP ONE (09:58)
[2016-08-25] MEDS: Nystatin POWDER 30 GM BOTTLE TP SCH ×2 (09:58→23:01)
[2016-08-25] MEDS: Budesonide/Formoterol 160/4.5 MDI IH SCH ×2 (10:33→22:41)
[2016-08-25] MEDS ORDERED: Insulin Human Regular 10 UNIT in 0.9 % Sodium Chloride 10 ML IV ONE (11:07)
--- NOTE | 2016-08-25 13:55 | Event Note ---
Date of Encounter: 08/25/16 Time of Encounter: 12:20 Called by the ICU team to assume nephrology care of thie patient per family's request, will comply. In brief 46 y o male with PMH of prader willi syndrome presenting to the hospital 08/09/15 with fevers and treated with several a host of different antibiotics for a myriad of issues including cellulitis with wound care positive for MRSA with sputum positive for acinetobacter. Stay complicated by developing STEPHANIE which has been worsening daily ever since along with hyperkalemia also worsening. Currently GFR noted at 17 and potassium noted at 6.0 with positive urine eos suspicious for AIN (of note vanco levels have been above 20for over a week now) and urine sodium <20 suspicious for hypoperfusion. 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 They agreed to pursue placement of temporary HD catheter for now and monitor potassium levels s/p kayexalate (no BM yet). UOP still very poor as well.
[2016-08-25] MEDS ORDERED: *HR* Heparin 5,000 UNIT/ML VIAL ONE (15:26)
[2016-08-25 15:28] LABS: Calcium 8.9 mg/dL (8.6-10.8); Potassium 5.7 mEq/L (3.5-4.5)
--- NOTE | 2016-08-25 15:52 | IR Procedure Note ---
Date of procedure: 08/25/16 Consent Obtained: Written consent Timeout: Correct patient and procedure verified, Correct site verified, Time out performed, Skin prep completed Local anesthetic: Lidocaine 1% Indications: LEXI Procedure Performed: Temp HD catheter placement Site/Technique: MALLY Results/Findings: 15cm cath working well Estimated blood loss (cc): 2 Complications: None; Tolerated procedure well Post Procedure Treatment Plan: monitoring in pts room
--- NOTE | 2016-08-25 16:43 | Electrocardiograph Report ---
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
[2016-08-26] MEDS: *HR* Heparin 5,000 UNIT/ML VIAL SQ SCH ×3 (00:30→16:37)
[2016-08-26] MEDS: Ipratropium/Albuterol Neb 3 ML IH SCH ×2 (04:21→09:32)
[2016-08-26 05:07] LABS: Basophils # 0.1 K/mcL (0.0-0.2); Basophils % 0.4 %; Eosinophils % 8.2 %; Hematocrit 30.4 % (37.5-50.1); Hemoglobin 9.1 g/dL (12.9-16.9); Immature Granulocytes % 0.8 % (0-4); Lymphocytes # 1.6 K/mcL (0.6-4.6); Lymphocytes % 12.9 %; Mean Corpuscular HGB Conc 29.9 g/dL (31.6-35.5); Mean Corpuscular Volume 86.9 fL (83.0-100.0); Mean Platelet Volume 10.6 fL (9.4-12.4); Monocytes # 1.7 K/mcL (0.0-1.3); Neutrophils # 7.8 K/mcL (1.6-8.9); Platelet Count 243 K/mcL (140-400); Red Cell Distribution Width 15.9 % (11.5-14.5); Segmented Neutrophils % 63.7 %
[2016-08-26 05:19] LABS: Calcium 8.8 mg/dL (8.6-10.8); Magnesium 2.1 mg/dL (1.6-2.6); Phosphorous 8.5 mg/dL (2.3-4.7)
[2016-08-26 05:23] LABS: Potassium 4.4 mEq/L (3.5-4.5)
--- NOTE | 2016-08-26 06:32 | Pulmonology Progress Note ---
Date of Encounter: 08/26/16 Time of Encounter: 06:32 Assessment and Plan (1) STEPHANIE (acute kidney injury) Current Visit: Yes Status: Acute worsening renal function 4.05 (3.77) suspected AIN with urine eosinophilia and peripheral eosinophilia from antibiotics Nephrology consulted - HD scheduled later today 08/26 continues to make minimal urine 300 cc yesterday renal ultrasound 08/14 did not show any acute abnormalities, left kidney not visualized and right kidney poorly visualized 13.6 cm length will continue to monitor strict I/Os (2) Hyperkalemia Current Visit: Yes Status: Acute secondary to worsening renal function improving, 4.4 (6.0) EKG did not show peaked T waves or widening of QRS Nephrology consulted - IR placed R IJ HD catheter - HD scheduled later today (3) AIN (acute interstitial nephritis) Current Visit: Yes Status: Acute worsening STEPHANIE peripheral and urine eosinophilia to suggest AIN - suspect related to beta-lactam use which has been stopped Nephrology consulted and appreciate recommendations - not a candidate for renal bx or steroids - patient received a dose of IV solumedrol AVOID nephrotoxins (4) Acute on chronic respiratory failure with hypoxemia Current Visit: Yes Status: Acute resolved patient intubated 08/10 due to hypoxemia and hypercapnia likely secondary to chronic respiratory failure secondary to cor pulmonale and OHS as well as pulmonary edema/vascular congestion extubated 08/17 4L NC with good oxygenation wean O2 to tolerance for goal O2 sat >88% BiPAP at night (5) Hypotension Current Visit: Yes Status: Acute continues to have SBP <90 but MAP >65 will monitor fluid status Qualifiers: Hypotension type: unspecified hypotension type Qualified Code(s): I95.9 - Hypotension, unspecified (6) Goals of care, counseling/discussion Current Visit: Yes Status: Acute sister Kerri is POA discussed recent events and long-term goals of care, wish for FULL CODE discussion regarding potential dialysis, risks and benefits discussed with family - since her and father have dialysis with Dr. Heaton for the past 3 years she has experienced dialysis and does not believe Facundo would wish to go through with it - Kerri however would like Dr. Heaton to take care of the patient since she is more familiar with her - will discuss with the following Escalator Installer Dr. Heaton and Dr. Heaton Discussed with Escalator Installer, tess to transfer care, consult placed for Dr. Heaton (7) Chronic wound of extremity Current Visit: No Status: Chronic cellulitic changes to bilateral lower extremity chronic venous stasis MRSA positive wound contact precautions continue wound care significantly improved from prior ICU admission (8) At risk for aspiration Current Visit: Yes Status: Acute hyperphagia secondary to Prader Willi concern for possible aspiration from episode of emesis 08/22 cultures NGTD will not restart any antibiotics at this time (9) Difficult intravenous access Current Visit: Yes Status: Acute EPIV in left and right upper arm R IJ HD catheter placed by IR 08/25 right PICC pulled - concern for infection - wound culture 08/23 NGTD, preliminary - empirically treated with Vancomycin for prior + MRSA wound - pharmacy to dose (10) Difficulty with insertion of urinary catheter Current Visit: Yes Status: Acute Urology consulted - difficulty placing 14F catheter on prior ICU admission (11) Cellulitis Current Visit: No Status: Acute plan as above Qualifiers: Site of cellulitis: extremity Site of cellulitis of extremity: lower extremity Laterality: unspecified laterality Qualified Code(s): L03.119 - Cellulitis of unspecified part of limb (12) Chronic anemia Current Visit: Yes Status: Chronic likely anemia of chronic disease remains stable at 9.2 (9.4) continue home iron required transfusion Hgb as low as 3.4 in the past 01/07/2016 (13) Morbid obesity with BMI of 50.0-59.9, adult Current Visit: Yes Status: Chronic secondary to Prader Willi Syndrome Nutrition consulted for diet and calorie restriction no drinks or snacks in between meals weight loss encouraged speech evaluated, ok for soft chopped diet (14) 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 hyperphagia encourage diet restrictions (15) DVT prophylaxis Current Visit: No Status: Acute heparin subq for DVT prophylaxis Subjective Principal diagnosis: Respiratory failure, sepsis, cellulitis Interval history: No major events overnight. Patient tolerated BiPAP well last night. Patient seen and examined at bedside. He is resting comfortably and is easily arousable. Denies any complaints at this time such as headache, chest pain, shortness of breath, cough, abdominal pain, nausea or vomiting. His potassium has continued to improve 4.4. His creatinine continues to worsen 4.05. Objective PUL Vital signs: Last Vital Signs Temp 97.7 F 08/26/16 05:10 Pulse 72 08/26/16 04:00 Resp 21 08/26/16 04:22 BP 98/66 08/26/16 03:00 Pulse Ox 93 08/26/16 04:22 General appearance: no acute distress, alert, other (Morbidly obese) Eyes: nonicteric, other (PERRL) ENT: oropharynx moist Neck: supple, other (Right IJ HD catheter) Effort: normal Auscultation: bilateral: other (Coarse) Cardiovascular: regular rate and rhythm Gastrointestinal: normoactive bowel sounds, soft (Obese), tender (Diffuse) Integumentary: erythema (Chronic venous stasis ulcers, well-dressed without odor ), cellulitis Extremities: anasarca (Chronic), other (Multiple venous stasis ulcer wounds to bilateral lower legs, improving) normal mental status, non-focal exam, pupils equal and round mood appropriate Results - Laboratory Findings CBC and BMP: 08/26/16 04:54 08/26/16 04:54 ABG ABG pH 7.32 pH Units (7.32-7.45) 08/17/16 04:20 ABG pCO2 55 mmHg (35-45) H 08/17/16 04:20 ABG pO2 76 mmHg (85-104) L 08/17/16 04:20 ABG O2 Saturation 94 % (95-98) L 08/17/16 04:20 PT/INR, D-dimer PT 14.0 Seconds (9.4-12.1) H 08/08/16 21:17 Abnormal lab findings: Abnormal lab results WBC 12.3 K/mcL (4.3-11.1) H 08/26/16 04:54 RBC 3.50 M/mcL (4.19-5.50) L 08/26/16 04:54 Hgb 9.1 g/dL (12.9-16.9) L 08/26/16 04:54 Hct 30.4 % (37.5-50.1) L 08/26/16 04:54 MCH 26.0 pg (28.0-33.3) L 08/26/16 04:54 MCHC 29.9 g/dL (31.6-35.5) L 08/26/16 04:54 RDW 15.9 % (11.5-14.5) H 08/26/16 04:54 Monocytes # 1.7 K/mcL (0.0-1.3) H 08/26/16 04:54 Eosinophils # 1.0 K/mcL (0.0-0.6) H 08/26/16 04:54 Nucleated RBCs/100 WBC 0.2 /100 WBC (0) H 08/09/16 11:27 Clumped Platelets Few (Not Present) A 08/19/16 03:28 Large Platelets Present (Not Present) A 08/13/16 03:32 Polychromasia 1+ (Not Present) A 08/13/16 03:32 Hypochromasia Present (Not Present) A 08/24/16 05:02 Poikilocytosis 1+ (Not Present) A 08/13/16 03:32 Anisocytosis 1+ (Not Present) A 08/19/16 03:28 Microcytosis Present (Not Present) A 08/19/16 03:28 Ovalocytes 1+ (Not Present) A 08/13/16 03:32 PT 14.0 Seconds (9.4-12.1) H 08/08/16 21:17 ABG pCO2 55 mmHg (35-45) H 08/17/16 04:20 ABG pO2 76 mmHg (85-104) L 08/17/16 04:20 ABG HCO3 28.3 mEQ/L (21-27) H 08/17/16 04:20 ABG Total CO2 30.0 mEq/L (20-26) H 08/17/16 04:20 ABG O2 Saturation 94 % (95-98) L 08/17/16 04:20 BUN 102 mg/dL (8-26) H 08/26/16 04:54 Creatinine 4.05 mg/dL (0.72-1.25) H 08/26/16 04:54 Est GFR ( Amer) 19 (> 60) L 08/26/16 04:54 Est GFR (Non-Af Amer) 16 (> 60) L 08/26/16 04:54 POC Glucose 91 (58-89) H 08/24/16 12:32 Calculated Osmolality 329 (280-300) H 08/26/16 04:54 Phosphorus 8.5 mg/dL (2.3-4.7) H 08/26/16 04:54 Albumin 2.5 g/dL (3.5-5.0) L 08/23/16 11:10 Globulin 4.3 g/dL (2.4-3.5) H 08/23/16 06:53 Albumin/Globulin Ratio 0.6 (1.1-2.2) L 08/23/16 06:53 Prealbumin 8.0 mg/dL (18.0-45.0) L 08/14/16 04:00 Ur Specimen Adequacy See below A 08/12/16 01:40 Urine Clarity Cloudy (Clear) A 08/13/16 22:00 Urine Protein 100 mg/dL (Neg-Trace) H 08/13/16 22:00 Urine Blood Moderate (Negative) H 08/13/16 22:00 Ur Leukocyte Esterase Moderate (Negative) H 08/13/16 22:00 Urine Microscopic RBC 5-15 per hpf (0-3) H 08/13/16 22:00 Urine Microscopic WBC TNTC per hpf (0-3) H 08/13/16 22:00 Ur Eosinophil Smear 10 % (None Seen) H 08/15/16 12:00 Ur Squamous Epith Cells Many per lpf (None-Few) H 08/13/16 22:00 Urine Yeast Few per hpf (None Seen) H 08/13/16 22:00 Ur Culture Indicated? YES (NO) A 08/13/16 22:00 Vancomycin Trough 25.6 mcg/mL (10-20) H* 08/25/16 05:04 Acetaminophen < 1.0 mcg/mL (10-30) L 08/11/16 14:55 EBV Capsid Ag IgG Ab >750.0 U/mL (0.0-21.9) H 08/09/16 11:27 EBV Nuclear Ag Ab Titer 245.0 U/mL (0.0-21.9) H 08/09/16 11:27 - Microbiology Findings Microbiology Findings: Microbiology, Last 48 Hours 08/23/16 17:02 Wound Culture - Final Catheter Site No growth. 08/23/16 15:30 Blood Culture - Preliminary Peripheral Venipuncture No growth. 08/23/16 15:30 Blood Culture - Preliminary Peripheral Venipuncture No growth. - Clinical Findings Intake & Output: Intake & Output 08/25/16 08/25/16 08/26/16 15:59 23:59 07:59 Output Total 75 / 75 175 / 175 250 / 250 Balance -75 / -75 -175 / -175 -250 / -250 Weight 109.5 kg Consult Discharge Plan - Plan Instructions: Potassium Chloride (By mouth), Nystatin (On the skin), Amoxicillin/Clavulanate Potassium (By mouth), Cellulitis (DC), Sepsis (DC), Anemia (GEN), Pneumonia (DC) Additional Instructions: Mechanically altered diet with nectar thick liquids recommended. Recommend Modified Barium Swallow Study as outpatient. Referrals: NO,PCP [Primary Care Provider] - Prescriptions: Amoxicillin/Clavulanate [Augmentin] 875 mg PO BIDWM #14 tablet Nystatin POWDER [Nystop] 1 appl TP BID PRN #1 bottle PRN Reason: Rash Potassium Chloride 10 meq PO DAILY #30 [email or web address].prt
[2016-08-26] MEDS: Lactobacillus 1 EACH CAP.SPRINK PO SCH ×2 (08:24→22:15)
[2016-08-26] MEDS: Folic Acid 1 MG TABLET PO SCH (08:24)
[2016-08-26] MEDS: Famotidine 20 MG TABLET PO SCH (08:24)
[2016-08-26] MEDS: Gentamicin Oint 15 GM TUBE TP SCH ×2 (08:34→22:15)
[2016-08-26] MEDS: Nystatin POWDER 30 GM BOTTLE TP SCH ×2 (08:35→22:14)
[2016-08-26] MEDS ORDERED: 0.9 % Sodium Chloride 250 ML IVC PRN (08:55)
[2016-08-26] MEDS ORDERED: 0.9 % Sodium Chloride 1,000 ML PRIME SCH (09:00)
[2016-08-26] MEDS ORDERED: 0.9 % Sodium Chloride 2,000 ML ONE (09:11)
[2016-08-26] MEDS: Budesonide/Formoterol 160/4.5 MDI IH SCH ×3 (09:32→22:14)
--- NOTE | 2016-08-26 10:58 | Nephrology Progress Note ---
Date of Encounter: 08/26/16 Time of Encounter: 11:15 - Assessment and Plan (1) STEPHANIE (acute kidney injury) Current Visit: Yes Status: Acute Scr worse today at 4.0, GFR 16 with BUN at 102. Will initiate HD today for 2 hours mostly for clearance with minimal UF goal of 01kg as tolerated likely with AIN due to antibiotics, most likely vanco, level still above 20 as of yesterday. Will monitor off all antiobiotics for for signs of renal recovery Avoid nephrotoxins if possible Will assess day to day to dialytic need UOp still not impressive with total of 300cc yesterday but today a little promising at 400cc so far Po fluids ok (2) Hyperkalemia Current Visit: Yes Status: Acute Potassium normalized at 4.4 after kayexalate yesterday, will monitor Renal diet advised for now (3) Anemia Current Visit: Yes Status: Chronic Hgb noted low but stable at 9.1, will monitor Qualifiers: Anemia type: iron deficiency Iron deficiency anemia type: inadequate dietary iron intake Qualified Code(s): D50.8 - Other iron deficiency anemias Subjective Principal diagnosis: Respiratory failure, sepsis, cellulitis Interval history: pt seen and examined appears comfortable and demanding to have "fluids removed" off his body. Sister at bedside. Objective - Vital Signs Vital signs: Vital Signs Temp Pulse Resp BP Pulse Ox 08/26/16 09:33 22 99/61 96 08/26/16 08:30 97.7 F 83 18 79/65 90 08/26/16 07:30 97.7 F 08/26/16 07:00 75 18 104/89 90 08/26/16 06:00 69 15 99/63 99 08/26/16 05:10 97.7 F 08/26/16 05:00 69 14 104/58 98 08/26/16 04:22 21 93 08/26/16 04:00 72 15 120/80 99 08/26/16 03:00 68 18 98/66 99 08/26/16 02:00 66 19 110/65 99 08/26/16 01:00 68 22 93/65 99 08/26/16 00:51 96.8 F L 08/26/16 00:00 66 13 106/67 97 08/25/16 23:48 17 99/54 95 08/25/16 23:00 66 17 99/54 95 05/26/17 22:42 17 124/102 94 08/25/16 22:00 72 22 103/59 96 08/25/16 21:00 71 20 112/78 94 08/25/16 20:54 96.6 F L 08/25/16 20:00 71 08/25/16 18:00 90 18 118/85 89 08/25/16 17:00 70 15 119/75 93 08/25/16 16:00 97.5 F L 68 14 113/76 93 08/25/16 15:56 20 92 08/25/16 15:00 67 12 116/84 92 08/25/16 14:00 72 14 107/98 94 08/25/16 13:00 75 14 112/77 93 08/25/16 12:00 74 14 87/69 95 08/25/16 11:40 96.4 F L 08/25/16 11:00 66 15 104/73 98 Intake and Output 08/25/16 08/26/16 08/26/16 23:59 07:59 15:59 Intake Total 340 / 340 Output Total 175 / 175 400 / 400 Balance -175 / -175 -60 / -60 Intake: Oral 340 / 340 Output: Catheter 175 / 175 400 / 400 Other: Weight 109.5 kg Patient Weight 08/26/16 23:59 Weight 109.5 kg - General Appearance General appearance: Present: chronically ill (NAD) EENT: Present: ATNC, mucous membranes moist Neck: Present: supple Respiratory: Present: course breath sounds Cardiology: Present: edema (LE bilat), normal S1, normal S2 Dialysis Vascular Access: Venous Catheter (temporary) Gastrointestinal: Present: no tenderness, no guarding, obese Integumentary: Present: warm and dry Additional Comments: awake and interactive Musculoskeletal: Present: no deformities Psychiatric: Present: cooperative - Lab 08/26/16 04:54 08/26/16 04:54 Most recent lab results ABG pH 7.32 pH Units (7.32-7.45) 08/17/16 04:20 ABG pCO2 55 mmHg (35-45) H 08/17/16 04:20 ABG pO2 76 mmHg (85-104) L 08/17/16 04:20 ABG HCO3 28.3 mEQ/L (21-27) H 08/17/16 04:20 ABG O2 Saturation 94 % (95-98) L 08/17/16 04:20 Calcium 8.8 mg/dL (8.6-10.8) 08/26/16 04:54 Phosphorus 8.5 mg/dL (2.3-4.7) H 08/26/16 04:54 Magnesium 2.1 mg/dL (1.6-2.6) 08/26/16 04:54 Urine Creatinine 46 mg/dL 08/14/16 04:03 Urine Sodium < 20.0 mEq/L 08/14/16 04:03 Consult Discharge Plan - Plan Instructions: Potassium Chloride (By mouth), Nystatin (On the skin), Amoxicillin/Clavulanate Potassium (By mouth), Cellulitis (DC), Sepsis (DC), Anemia (GEN), Pneumonia (DC) Additional Instructions: Mechanically altered diet with nectar thick liquids recommended. Recommend Modified Barium Swallow Study as outpatient. Referrals: NO,PCP [Primary Care Provider] - Prescriptions: Amoxicillin/Clavulanate [Augmentin] 875 mg PO BIDWM #14 tablet Nystatin POWDER [Nystop] 1 appl TP BID PRN #1 bottle PRN Reason: Rash Potassium Chloride 10 meq PO DAILY #30 [email or web address].prt
[2016-08-26] MEDS ORDERED: *HR* Metoprolol 5 MG/5 ML VIAL IVP ONE ×3 (13:35→14:05)
[2016-08-26 13:52] LABS: VBG HCO3 22.4 mEq/L (21-27)
[2016-08-26 13:53] LABS: VBG PH 7.12 pH Units (7.32-7.42)
[2016-08-26] MEDS ORDERED: Ipratropium/Albuterol Neb 3 ML IH PRN (13:53)
--- NOTE | 2016-08-26 14:19 | Event Note ---
Date of Encounter: 08/26/16 Time of Encounter: 14:11 Critical care attending note: Called emergently to bedside for evaluation of acute decompensation during hemodialysis. During dialysis the patient became acutely diaphoretic, which was associated with tachycardia and unresponsiveness. Evaluation revealed A. fib/flutter with RVR. Patient was also hypotensive. Blood gas analysis revealed acute hypercapnia with respiratory acidosis. Patient was given Lopressor 5 mg IV 2 with eventual transition to sinus bradycardia. Serum chemistries including magnesium level and potassium level are pending. He was given a 500 mL bolus of saline resulting in normotension. Patient was started on BiPAP and we will obtain another gas in approximately one hour. He is at risk of intubation, and he is reportedly a difficult airway. Overall, his mental status has improved with resuscitative efforts. 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 They are contemplating his CODE STATUS. Currently he is full code. Total direct critical care time: 32 minutes
[2016-08-26 15:35] LABS: VBG HCO3 21.5 mEq/L (21-27)
[2016-08-26 15:37] LABS: VBG PH 7.17 pH Units (7.32-7.42)
[2016-08-27] MEDS: *HR* Heparin 5,000 UNIT/ML VIAL SQ SCH ×5 (00:20→23:22)
[2016-08-27 05:00] LABS: Basophils # 0.1 K/mcL (0.0-0.2); Basophils % 0.5 %; Eosinophils % 7.9 %; Hemoglobin 8.9 g/dL (12.9-16.9); Lymphocytes # 1.8 K/mcL (0.6-4.6); Lymphocytes % 14.8 %; Mean Corpuscular HGB Conc 28.7 g/dL (31.6-35.5); Mean Corpuscular Hemoglobin 25.1 pg (28.0-33.3); Mean Corpuscular Volume 87.3 fL (83.0-100.0); Mean Platelet Volume 9.3 fL (9.4-12.4); Monocytes # 1.8 K/mcL (0.0-1.3); Monocytes % 14.6 %; Nucleated Red Blood Cells 0.2 /100 WBC (0); Platelet Count 204 K/mcL (140-400); Red Blood Count 3.55 M/mcL (4.19-5.50); Red Cell Distribution Width 15.7 % (11.5-14.5); Segmented Neutrophils % 61.2 %
[2016-08-27 05:01] LABS: Neutrophils # 7.5 K/mcL (1.6-8.9)
[2016-08-27 05:13] LABS: Calcium 8.5 mg/dL (8.6-10.8); Magnesium 2.1 mg/dL (1.6-2.6); Phosphorous 8.6 mg/dL (2.3-4.7); Potassium 4.9 mEq/L (3.5-4.5)
[2016-08-27 05:17] LABS: Hypochromasia Present (Not Present); Platelet Estimate Normal (Normal)
[2016-08-27 05:18] LABS: Anisocytosis 1+ (Not Present); Polychromasia 2+ (Not Present)
[2016-08-27] MEDS ORDERED: *HR* Rocuronium Bromide 50 MG/5 ML VIAL IVC ONE (08:03)
[2016-08-27] MEDS ORDERED: *HR* Etomidate 40 MG/20 ML VIAL IVP ONE (08:03)
[2016-08-27] MEDS: Budesonide/Formoterol 160/4.5 MDI IH SCH ×2 (08:11→22:13)
[2016-08-27] MEDS: Lactobacillus 1 EACH CAP.SPRINK PO SCH ×2 (08:20→21:32)
[2016-08-27] MEDS: Folic Acid 1 MG TABLET PO SCH (08:20)
[2016-08-27] MEDS: Famotidine 20 MG TABLET PO SCH (08:22)
[2016-08-27] MEDS: Gentamicin Oint 15 GM TUBE TP SCH ×2 (08:23→21:34)
[2016-08-27] MEDS: Nystatin POWDER 30 GM BOTTLE TP SCH ×2 (08:23→21:34)
--- NOTE | 2016-08-27 09:50 | Pulmonology Progress Note ---
Date of Encounter: 08/27/16 Time of Encounter: 09:48 Assessment and Plan (1) Atrial fibrillation with rapid ventricular response Current Visit: Yes Status: Acute (2) Acute and chronic respiratory failure with hypoxia Current Visit: No Status: Acute (3) STEPHANIE (acute kidney injury) Current Visit: Yes Status: Acute (4) Leukocytosis Current Visit: Yes Status: Acute Qualifiers: Leukocytosis type: unspecified Qualified Code(s): D72.829 - Elevated white blood cell count, unspecified (5) Hypotension Current Visit: Yes Status: Acute Qualifiers: Hypotension type: unspecified hypotension type Qualified Code(s): I95.9 - Hypotension, unspecified (6) Morbid obesity with BMI of 60.0-69.9, adult Current Visit: Yes Status: Chronic (7) Acute kidney failure, unspecified Current Visit: Yes Status: Acute Qualifiers: Acute renal failure type: unspecified Qualified Code(s): N17.9 - Acute kidney failure, unspecified Subjective Principal diagnosis: Respiratory failure, sepsis, cellulitis Interval history: No acute overnight events. Patient's mental status has improved. Tolerated BiPAP overnight. No fever/chills. Heart rate stable in sinus rhythm. Unable to obtain full review of systems secondary to mental status. 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1) L 08/27/16 04:50 MCH 25.1 pg (28.0-33.3) L 08/27/16 04:50 MCHC 28.7 g/dL (31.6-35.5) L 08/27/16 04:50 RDW 15.7 % (11.5-14.5) H 08/27/16 04:50 MPV 9.3 fL (9.4-12.4) L 08/27/16 04:50 Monocytes # 1.8 K/mcL (0.0-1.3) H 08/27/16 04:50 Eosinophils # 1.0 K/mcL (0.0-0.6) H 08/27/16 04:50 Nucleated RBCs/100 WBC 0.2 /100 WBC (0) H 08/27/16 04:50 Clumped Platelets Few (Not Present) A 08/19/16 03:28 Large Platelets Present (Not Present) A 08/13/16 03:32 Polychromasia 2+ (Not Present) A 08/27/16 04:50 Hypochromasia Present (Not Present) A 08/27/16 04:50 Poikilocytosis 1+ (Not Present) A 08/13/16 03:32 Anisocytosis 1+ (Not Present) A 08/27/16 04:50 Microcytosis Present (Not Present) A 08/19/16 03:28 Ovalocytes 1+ (Not Present) A 08/13/16 03:32 PT 14.0 Seconds (9.4-12.1) H 08/08/16 21:17 ABG pCO2 55 mmHg (35-45) H 08/17/16 04:20 ABG pO2 76 mmHg (85-104) L 08/17/16 04:20 ABG HCO3 28.3 mEQ/L (21-27) H 08/17/16 04:20 ABG Total CO2 30.0 mEq/L (20-26) H 08/17/16 04:20 ABG O2 Saturation 94 % (95-98) L 08/17/16 04:20 VBG pH 7.17 pH Units (7.32-7.42) L* 08/26/16 15:20 VBG pCO2 59 mmHg (41-51) H 08/26/16 15:20 Potassium 4.9 mEq/L (3.5-4.5) H 08/27/16 04:50 BUN 97 mg/dL (8-26) H 08/27/16 04:50 Creatinine 4.32 mg/dL (0.72-1.25) H 08/27/16 04:50 Est GFR ( Amer) 18 (> 60) L 08/27/16 04:50 Est GFR (Non-Af Amer) 15 (> 60) L 08/27/16 04:50 POC Glucose 124 (58-89) H 08/26/16 13:50 Calculated Osmolality 324 (280-300) H 08/27/16 04:50 Calcium 8.5 mg/dL (8.6-10.8) L 08/27/16 04:50 Phosphorus 8.6 mg/dL (2.3-4.7) H 08/27/16 04:50 Albumin 2.5 g/dL (3.5-5.0) L 08/23/16 11:10 Globulin 4.3 g/dL (2.4-3.5) H 08/23/16 06:53 Albumin/Globulin Ratio 0.6 (1.1-2.2) L 08/23/16 06:53 Prealbumin 8.0 mg/dL (18.0-45.0) L 08/14/16 04:00 Ur Specimen Adequacy See below A 08/12/16 01:40 Urine Clarity Cloudy (Clear) A 08/13/16 22:00 Urine Protein 100 mg/dL (Neg-Trace) H 08/13/16 22:00 Urine Blood Moderate (Negative) H 08/13/16 22:00 Ur Leukocyte Esterase Moderate (Negative) H 08/13/16 22:00 Urine Microscopic RBC 5-15 per hpf (0-3) H 08/13/16 22:00 Urine Microscopic WBC TNTC per hpf (0-3) H 08/13/16 22:00 Ur Eosinophil Smear 10 % (None Seen) H 08/15/16 12:00 Ur Squamous Epith Cells Many per lpf (None-Few) H 08/13/16 22:00 Urine Yeast Few per hpf (None Seen) H 08/13/16 22:00 Ur Culture Indicated? YES (NO) A 08/13/16 22:00 Vancomycin Trough 25.6 mcg/mL (10-20) H* 08/25/16 05:04 Acetaminophen < 1.0 mcg/mL (10-30) L 08/11/16 14:55 EBV Capsid Ag IgG Ab >750.0 U/mL (0.0-21.9) H 08/09/16 11:27 EBV Nuclear Ag Ab Titer 245.0 U/mL (0.0-21.9) H 08/09/16 11:27 - Microbiology Findings Microbiology Findings: Microbiology, Last 48 Hours 08/23/16 17:02 Wound Culture - Final Catheter Site No growth. 08/23/16 15:30 Blood Culture - Preliminary Peripheral Venipuncture No growth. 08/23/16 15:30 Blood Culture - Preliminary Peripheral Venipuncture No growth. - Clinical Findings Intake & Output: Intake & Output 08/26/16 08/27/16 08/27/16 23:59 07:59 15:59 Output Total 275 / 275 Balance -275 / -275 Consult Discharge Plan - Plan Instructions: Potassium Chloride (By mouth), Nystatin (On the skin), Amoxicillin/Clavulanate Potassium (By mouth), Cellulitis (DC), Sepsis (DC), Anemia (GEN), Pneumonia (DC) Additional Instructions: Mechanically altered diet with nectar thick liquids recommended. Recommend Modified Barium Swallow Study as outpatient. Referrals: NO,PCP [Primary Care Provider] - Prescriptions: Amoxicillin/Clavulanate [Augmentin] 875 mg PO BIDWM #14 tablet Nystatin POWDER [Nystop] 1 appl TP BID PRN #1 bottle PRN Reason: Rash Potassium Chloride 10 meq PO DAILY #30 [email or web address].prt
--- NOTE | 2016-08-27 11:31 | Nephrology Progress Note ---
Date of Encounter: 08/27/16 Time of Encounter: 13:00 - Assessment and Plan (1) STEPHANIE (acute kidney injury) Current Visit: Yes Status: Acute Scr continues to worsen today at 4.32, GFR 15 with BUN at 93. HD terminated almost immediately after starting due to hemodynamic instability likely stemming from anxiety? Will try again today per family's request with an anxiolytic on board. HD for 2 hrs today with UF 1-2kg as tolerated STEPHANIE likely AIN due to antibiotics, most likely vanco. Will monitor off all antiobiotics for for signs of renal recovery Avoid nephrotoxins if possible UOP documented at 600cc in the past 24hrs which is an improvement Po fluids ok (2) Hyperkalemia Current Visit: Yes Status: Acute Potassium worse at 4.9, will monitor Renal diet advised for now (3) Anemia Current Visit: Yes Status: Chronic Hgb noted low but stable at 8.9, will monitor Qualifiers: Anemia type: iron deficiency Iron deficiency anemia type: inadequate dietary iron intake Qualified Code(s): D50.8 - Other iron deficiency anemias Subjective Principal diagnosis: Respiratory failure, sepsis, cellulitis Interval history: pt seen and examined appears comfortable with family at bedside. He did not tolerate HD yesterday, became diaphoretic, tachycardiac and hypotension 8 mins into dialysis as he was apparently "very scared". Discussed at length with family and they want to try again today with an anxiolytic on board. They declined andrea as an option and also did not want to wait another day for monitoring. Objective - Vital Signs Vital signs: Vital Signs Temp Pulse Resp BP Pulse Ox 08/27/16 10:00 74 16 114/58 98 08/27/16 09:00 76 16 100/69 100 08/27/16 08:25 72 08/27/16 08:00 77 20 102/70 100 08/27/16 07:59 95.0 F L 08/27/16 07:00 66 18 84/41 98 08/27/16 06:00 72 14 101/71 100 08/27/16 05:00 70 16 98/43 98 08/27/16 04:46 96.5 F L 08/27/16 04:00 70 20 93/73 97 08/27/16 03:00 63 17 80/57 97 08/27/16 02:00 70 18 92/65 97 08/27/16 01:00 64 15 98/72 99 08/27/16 00:00 96.3 F L 65 20 95/73 98 08/26/16 23:00 66 14 104/79 98 08/26/16 22:00 64 17 124/91 99 08/26/16 21:00 66 13 98/64 98 08/26/16 20:53 96.4 F L 08/26/16 20:00 63 12 113/58 95 08/26/16 19:42 63 08/26/16 19:00 64 21 106/79 94 08/26/16 18:12 63 20 101/75 100 08/26/16 17:00 60 20 89/60 100 08/26/16 16:10 95.8 F L 59 20 84/63 100 08/26/16 15:52 95.8 F L 08/26/16 15:00 57 25 76/58 96 08/26/16 14:06 25 74/60 96 08/26/16 14:00 51 25 74/60 96 08/26/16 13:25 19 145/81 08/26/16 13:13 73/31 08/26/16 13:05 97.4 F L 24 125/91 08/26/16 13:00 84 18 118/74 98 08/26/16 12:00 97.7 F 81 18 120/98 98 Intake and Output 08/26/16 08/27/16 08/27/16 23:59 07:59 15:59 Output Total 275 / 275 Balance -275 / -275 Output: Catheter 275 / 275 Other: Stool Size Moderate Stool Consistency formed - General Appearance General appearance: Present: chronically ill (NAD) EENT: Present: ATNC Neck: Present: no JVD, supple Respiratory: Present: course breath sounds Cardiology: Present: edema (LE/UE bilat), normal S1, normal S2 Gastrointestinal: Present: no tenderness, no guarding, obese Integumentary: Present: warm and dry Additional Comments: awake and interactive Musculoskeletal: Present: no deformities Psychiatric: Present: cooperative - Lab 08/28/16 05:26 08/28/16 05:11 Most recent lab results ABG pH 7.32 pH Units (7.32-7.45) 08/17/16 04:20 ABG pCO2 55 mmHg (35-45) H 08/17/16 04:20 ABG pO2 76 mmHg (85-104) L 08/17/16 04:20 ABG HCO3 28.3 mEQ/L (21-27) H 08/17/16 04:20 ABG O2 Saturation 94 % (95-98) L 08/17/16 04:20 Calcium 8.5 mg/dL (8.6-10.8) L 08/27/16 04:50 Phosphorus 8.6 mg/dL (2.3-4.7) H 08/27/16 04:50 Magnesium 2.1 mg/dL (1.6-2.6) 08/27/16 04:50 Urine Creatinine 46 mg/dL 08/14/16 04:03 Urine Sodium < 20.0 mEq/L 08/14/16 04:03 Consult Discharge Plan - Plan Instructions: Potassium Chloride (By mouth), Nystatin (On the skin), Amoxicillin/Clavulanate Potassium (By mouth), Cellulitis (DC), Sepsis (DC), Anemia (GEN), Pneumonia (DC) Additional Instructions: Mechanically altered diet with nectar thick liquids recommended. Recommend Modified Barium Swallow Study as outpatient. Referrals: NO,PCP [Primary Care Provider] - Prescriptions: Amoxicillin/Clavulanate [Augmentin] 875 mg PO BIDWM #14 tablet Nystatin POWDER [Nystop] 1 appl TP BID PRN #1 bottle PRN Reason: Rash Potassium Chloride 10 meq PO DAILY #30 [email or web address]
[2016-08-27] MEDS ORDERED: 0.9 % Sodium Chloride 250 ML IVC PRN (14:19)
[2016-08-27] MEDS: *HR* LORazepam 0.5 MG TABLET PO SCH (14:55)
[2016-08-27] MEDS ORDERED: 0.9 % Sodium Chloride 250 ML ONE (16:01)
[2016-08-27] MEDS ORDERED: *HR* Norepinephrine 4 MG/4 ML VIAL IVC ONE (16:27)
[2016-08-27] MEDS ORDERED: D5% in Water 250 ML ONE (16:27)
[2016-08-27] MEDS ORDERED: *HR* Heparin 10,000 UNIT/10 ML VIAL IV PRN (16:28)
[2016-08-27] MEDS ORDERED: Norepinephrine 4 MG in D5% in Water 250 ML IVC SCH (16:30)
--- NOTE | 2016-08-27 16:35 | Event Note ---
Date of Encounter: 08/27/16 Time of Encounter: 16:29 Called emergently to bedside for Code Blue. The patient acutely decompensated shortly after initiating hemodialysis. The patient became unresponsive and then developed a pulseless wide complex bradycardia. Return of spontaneous circulation after one round of ACLS with with epinephrine x 1. An endotracheal tube was placed utilizing Glidescope. Of note, difficult airway with very anterior airway. He was however easy to bag. ET tube passed on first attempt with (+) color change, condensation in tube, and (+) bilateral breath sounds. CXR is pending. Arterial line was placed for closer hemodynamic monitoring. Began norepinephrine for hypotension. Total direct critical care time excluding procedures: 40 minutes
[2016-08-27 17:00] LABS: ABG Base Excess -10.6 mEq/L (-2.0 to 3.0); ABG HCO3 20.3 mEQ/L (21-27); ABG Oxygen Saturation 99 % (95-98); ABG PO2 168 mmHg (85-104); ABG TCO2 22.6 mEq/L (20-26)
[2016-08-27 17:02] LABS: ABG PCO2 75 mmHg (35-45); ABG PH 7.04 pH Units (7.32-7.45); Blood Gas FiO2 100 %; Blood Gas Respiration Rate 12; Blood Gas VT 350 cc
[2016-08-27 17:03] LABS: Blood Gas PEEP 5 cm H2O
[2016-08-27] MEDS ORDERED: 0.9 % Sodium Chloride 2,000 ML ONE (17:57)
[2016-08-27 18:24] LABS: ABG HCO3 18.6 mEQ/L (21-27); ABG Oxygen Saturation 99 % (95-98); ABG PCO2 37 mmHg (35-45); ABG PH 7.31 pH Units (7.32-7.45); ABG PO2 156 mmHg (85-104); ABG TCO2 19.7 mEq/L (20-26)
[2016-08-27 18:25] LABS: Blood Gas FiO2 60 %; Blood Gas PEEP 5 cm H2O; Blood Gas Respiration Rate 30; Blood Gas VT 350 cc
[2016-08-27] MEDS: Norepinephrine 4 MG in D5% in Water 250 ML IVC SCH (22:23)
[2016-08-28] MEDS: Gentamicin Oint 15 GM TUBE TP SCH ×3 (04:42→19:53)
[2016-08-28 05:13] LABS: ABG Base Excess -2.2 mEq/L (-2.0 to 3.0); ABG HCO3 21.3 mEQ/L (21-27); ABG Oxygen Saturation 100 % (95-98); ABG PCO2 30 mmHg (35-45); ABG PH 7.46 pH Units (7.32-7.45); ABG PO2 183 mmHg (85-104); ABG TCO2 22.2 mEq/L (20-26)
[2016-08-28 05:14] LABS: Blood Gas FiO2 50 %
[2016-08-28 05:36] LABS: Basophils % 0.3 %; Hematocrit 23.3 % (37.5-50.1); Hemoglobin 7.4 g/dL (12.9-16.9); Immature Granulocytes % 1.4 % (0-4); Immature Platelets 1.8 % (1.1-6.1); Lymphocytes # 1.7 K/mcL (0.6-4.6); Lymphocytes % 16.7 %; Mean Corpuscular HGB Conc 31.8 g/dL (31.6-35.5); Mean Corpuscular Hemoglobin 25.8 pg (28.0-33.3); Mean Corpuscular Volume 81.2 fL (83.0-100.0); Mean Platelet Volume 9.4 fL (9.4-12.4); Monocytes # 1.2 K/mcL (0.0-1.3); Monocytes % 11.2 %; Neutrophils # 6.3 K/mcL (1.6-8.9); Nucleated Red Blood Cells 0.2 /100 WBC (0); Platelet Count 200 K/mcL (140-400); Red Blood Count 2.87 M/mcL (4.19-5.50); Red Cell Distribution Width 15.5 % (11.5-14.5); Segmented Neutrophils % 60.4 %
[2016-08-28 06:19] LABS: Albumin 2.1 g/dL (3.5-5.0); Albumin/Globulin Ratio 0.7 (1.1-2.2); Bilirubin,Direct 0.3 mg/dL (0.0-0.5); Bilirubin,Indirect 0.2 mg/dL (0.0-1.2); Bilirubin,Total 0.5 mg/dL (0.2-1.2); Calcium 8.2 mg/dL (8.6-10.8); Magnesium 1.7 mg/dL (1.6-2.6); Phosphorous 6.9 mg/dL (2.3-4.7); Potassium 4.3 mEq/L (3.5-4.5); Total Protein 5.1 g/dL (6.0-8.3)
--- NOTE | 2016-08-28 06:41 | Pulmonology Progress Note ---
Addendum entered and electronically signed by Barron Husain DO 08/28/16 12:02: ADDENDUM: Goals of Care - spoke with Kerri BENAVIDES, adamant that if we extubate he would not want to be reintubated. Failed CPAP trail earlier today, will attempt again tomorrow. Consult to Palliative Care. Anemia - downtrending, will continue to monitor. No active bleeding. Suspect secondary to worsening renal function. Continues to make minimal urine. Original Note: <Barron Husain - Last Filed: 08/28/16 09:58> Date of Encounter: 08/28/16 Time of Encounter: 06:41 Assessment and Plan (1) Cardiopulmonary arrest with successful resuscitation Current Visit: Yes Status: Resolved cardiac arrest 08/10 s/p intubation - patient vomited --> bradycardia --> asystole - successful resuscitation after 2 rounds of CPR and 1 EPI before ROSC second cardiac arrest 08/28 s/p initiation of HD, 4 minutes into session - pulseless wide complex bradycaria with ROSC after 1 round of ACLS and EPI - patient was intubated and started on NOREPI for hypotension - review of CXR for R IJ catheter placement, concern this may be aggravating the myocardium during dialysis session (2) Goals of care, counseling/discussion Current Visit: Yes Status: Acute sister Kerri BENAVIDES discussed recent events and long-term goals of care, wish for FULL CODE (3) STEPHANIE (acute kidney injury) Current Visit: Yes Status: Acute worsening renal function 4.49 (4.32) suspected AIN with urine eosinophilia and peripheral eosinophilia from antibiotics Vancomycin Nephrology consulted - 2 attempts at HD, patient has not tolerated well - defer management to Nephrology recommendations - consideration with possible Prizma, will discuss with family renal ultrasound 08/14 did not show any acute abnormalities, left kidney not visualized and right kidney poorly visualized 13.6 cm length will continue to monitor strict I/Os (4) Hyperkalemia Current Visit: Yes Status: Acute secondary to worsening renal function improving, 4.3 (4.9) EKG did not show peaked T waves or widening of QRS Nephrology consulted - 2 attempts at HD, patient has not tolerated well - defer management to Nephrology recommendations (5) AIN (acute interstitial nephritis) Current Visit: Yes Status: Acute worsening STEPHANIE peripheral and urine eosinophilia to suggest AIN - suspect related to beta-lactam use which has been stopped Nephrology consulted and appreciate recommendations - not a candidate for renal bx or steroids - patient received a dose of IV solumedrol AVOID nephrotoxins (6) Acute on chronic respiratory failure with hypoxemia Current Visit: Yes Status: Acute patient intubated 08/10 due to hypoxemia and hypercapnia likely secondary to chronic respiratory failure secondary to cor pulmonale and OHS as well as pulmonary edema/vascular congestion extubated 08/17 re-intubated 08/27 after cardiorespiratory arrest minimal vent settings discuss goals of care with family (7) Hypotension Current Visit: Yes Status: Acute cardiac arrest 08/27 currently on Norepi 2mcg wean off as tolerated goal MAP >65 Qualifiers: Hypotension type: unspecified hypotension type Qualified Code(s): I95.9 - Hypotension, unspecified (8) Chronic wound of extremity Current Visit: No Status: Chronic cellulitic changes to bilateral lower extremity chronic venous stasis MRSA positive wound contact precautions continue wound care significantly improved from prior ICU admission (9) Difficult intravenous access Current Visit: Yes Status: Acute EPIV in left and right upper arm R IJ HD catheter placed by IR 08/25 right PICC pulled - concern for infection - wound culture 08/23 NGTD, preliminary - empirically treated with Vancomycin for prior + MRSA wound - pharmacy to dose (10) Difficulty with insertion of urinary catheter Current Visit: Yes Status: Acute Urology consulted - difficulty placing 14F catheter on prior ICU admission 2nd urinary catheterization with Dr. 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 hyperphagia encourage diet restrictions (14) DVT prophylaxis Current Visit: No Status: Acute heparin subq for DVT prophylaxis Neuro: sedated on Propofol, alert and opens eyes to voice, limited mental capacity at baseline due to Prader-Luis Pulm: intubated on minimal vent settings, discuss with family on GOC Cardio: CPR arrest with ROSC, hypotensive requiring Norepi, possible cariac irritation from R IJ catheter when dialysis initiated FEN-GI: stable hyperkalemia, improving despite no HD Renal: worsening renal function with minimal UOP, 2 attempts at HD and patient did not tolerate, code once on 08/27, discuss options with Nephro such as Prizma , HD catheter repositioning, and anxiolytics ID: do not recommend further antibiotics, no active infection seen, afebrile Heme/Onc: chronic anemia, continue to monitor, downtrending possibly from renal dysfunction Endocrine: stable Skin: continue wound care to legs and ICU skin care protocol Dispo: continue ICU care Subjective Principal diagnosis: Respiratory failure, sepsis, cellulitis Interval history: No major events overnight. Patient seen and examined at bedside. He remains intubated in no acute distress. Maintains good oxygen saturations. No fevers or chills. Unable to obtain full review systems secondary to mental status. Objective PUL Vital signs: Last Vital Signs Temp 98.2 F 08/28/16 04:42 Pulse 61 08/28/16 06:00 Resp 18 08/28/16 06:04 BP 96/54 08/28/16 06:04 Pulse Ox 94 08/28/16 06:04 General appearance: no acute distress (Sedated on propofol) Eyes: nonicteric, other (PERRL) ENT: other (Endotracheal intubation) Neck: supple, other (Right IJ HD catheter) Effort: normal (Mechanically ventilated) Auscultation: bilateral: other (Coarse) Cardiovascular: regular rate and rhythm Gastrointestinal: normoactive bowel sounds, soft (Obese), non-tender, non- distended Integumentary: erythema (Chronic venous stasis ulcers, well-dressed without odor ), cellulitis Extremities: anasarca (Chronic), other (Multiple venous stasis ulcer wounds to bilateral lower legs, improving) non-focal exam, pupils equal and round, unable to assess due to mental status ( Sedated, opens eyes to voice) Ventilator Settings Ventilator Settings: Ventilator Settings, Last 8 Hours Ventilator Mode VC+ Ventilator Mode VC+ Ventilator Mode VC+ Ventilator Mode VC+ Ventilator Mode VC+ Ventilator Mode VC+ Ventilator Mode VC+ Ventilator Mode VC+ Ventilator Mode VC+ Ventilator Mode VC+ Ventilator Mode VC+ Ventilator Mode VC+ Ventilator Mode VC+ Ventilator Mode VC+ Ventilator Tidal Volume 350 Setting Ventilator Tidal Volume 350 Setting Ventilator Tidal Volume 350 Setting Ventilator Tidal Volume 350 Setting Ventilator Tidal Volume 350 Setting Ventilator Tidal Volume 350 Setting Ventilator Tidal Volume 350 Setting Ventilator Tidal Volume 350 Setting Ventilator Tidal Volume 350 Setting Ventilator Tidal Volume 350 Setting Ventilator Tidal Volume 350 Setting Ventilator Tidal Volume 350 Setting Ventilator Tidal Volume 350 Setting Ventilator Tidal Volume 350 Setting Ventilator Respiratory Rate 18 Setting Ventilator Respiratory Rate 18 Setting Ventilator Respiratory Rate 18 Setting Ventilator Respiratory Rate 30 Setting Ventilator Respiratory Rate 30 Setting Ventilator Respiratory Rate 30 Setting Ventilator Respiratory Rate 30 Setting Ventilator Respiratory Rate 30 Setting Ventilator Respiratory Rate 30 Setting Ventilator Respiratory Rate 30 Setting Ventilator Respiratory Rate 30 Setting Ventilator Respiratory Rate 30 Setting Ventilator Respiratory Rate 30 Setting Ventilator Respiratory Rate 30 Setting Actual Respiratory Rate 18 Actual Respiratory Rate 30 Actual Respiratory Rate 30 Actual Respiratory Rate 30 Positive End Expiratory 5 Pressure Positive End Expiratory 5 Pressure Positive End Expiratory 5 Pressure Positive End Expiratory 5 Pressure Positive End Expiratory 5 Pressure Positive End Expiratory 5 Pressure Positive End Expiratory 5 Pressure Positive End Expiratory 5 Pressure Positive End Expiratory 5 Pressure Positive End Expiratory 5 Pressure Positive End Expiratory 5 Pressure Positive End Expiratory 5 Pressure Positive End Expiratory 5 Pressure Positive End Expiratory 5 Pressure Peak Inspiratory Airway 32 Pressure Peak Inspiratory Airway 31 Pressure Peak Inspiratory Airway 32 Pressure Peak Inspiratory Airway 47 Pressure Results - Laboratory Findings CBC and BMP: 08/28/16 05:26 08/28/16 05:11 ABG ABG pH 7.46 pH Units (7.32-7.45) H 08/28/16 05:04 ABG pCO2 30 mmHg (35-45) L 08/28/16 05:04 ABG pO2 183 mmHg (85-104) H 08/28/16 05:04 ABG O2 Saturation 100 % (95-98) H 08/28/16 05:04 PT/INR, D-dimer PT 14.0 Seconds (9.4-12.1) H 08/08/16 21:17 Abnormal lab findings: Abnormal lab results RBC 2.87 M/mcL (4.19-5.50) L 08/28/16 05:26 Hgb 7.4 g/dL (12.9-16.9) L D 08/28/16 05:26 Hct 23.3 % (37.5-50.1) L 08/28/16 05:26 MCV 81.2 fL (83.0-100.0) L D 08/28/16 05:26 MCH 25.8 pg (28.0-33.3) L 08/28/16 05:26 RDW 15.5 % (11.5-14.5) H 08/28/16 05:26 Eosinophils # 1.0 K/mcL (0.0-0.6) H 08/28/16 05:26 Nucleated RBCs/100 WBC 0.2 /100 WBC (0) H 08/28/16 05:26 Clumped Platelets Few (Not Present) A 08/19/16 03:28 Large Platelets Present (Not Present) A 08/13/16 03:32 Polychromasia 2+ (Not Present) A 08/27/16 04:50 Hypochromasia Present (Not Present) A 08/27/16 04:50 Poikilocytosis 1+ (Not Present) A 08/13/16 03:32 Anisocytosis 1+ (Not Present) A 08/27/16 04:50 Microcytosis Present (Not Present) A 08/19/16 03:28 Ovalocytes 1+ (Not Present) A 08/13/16 03:32 PT 14.0 Seconds (9.4-12.1) H 08/08/16 21:17 ABG pH 7.46 pH Units (7.32-7.45) H 08/28/16 05:04 ABG pCO2 30 mmHg (35-45) L 08/28/16 05:04 ABG pO2 183 mmHg (85-104) H 08/28/16 05:04 ABG O2 Saturation 100 % (95-98) H 08/28/16 05:04 ABG Base Excess -2.2 mEq/L (-2.0 to 3.0) L 08/28/16 05:04 VBG pH 7.17 pH Units (7.32-7.42) L* 08/26/16 15:20 VBG pCO2 59 mmHg (41-51) H 08/26/16 15:20 BUN 102 mg/dL (8-26) H 08/28/16 05:11 Creatinine 4.49 mg/dL (0.72-1.25) H 08/28/16 05:11 Est GFR ( Amer) 17 (> 60) L 08/28/16 05:11 Est GFR (Non-Af Amer) 14 (> 60) L 08/28/16 05:11 Calculated Osmolality 327 (280-300) H 08/28/16 05:11 Calcium 8.2 mg/dL (8.6-10.8) L 08/28/16 05:11 Phosphorus 6.9 mg/dL (2.3-4.7) H 08/28/16 05:11 Serum Total Protein 5.1 g/dL (6.0-8.3) L 08/28/16 05:11 Albumin 2.1 g/dL (3.5-5.0) L 08/28/16 05:11 Albumin/Globulin Ratio 0.7 (1.1-2.2) L 08/28/16 05:11 Prealbumin 8.0 mg/dL (18.0-45.0) L 08/14/16 04:00 Ur Specimen Adequacy See below A 08/12/16 01:40 Urine Clarity Cloudy (Clear) A 08/13/16 22:00 Urine Protein 100 mg/dL (Neg-Trace) H 08/13/16 22:00 Urine Blood Moderate (Negative) H 08/13/16 22:00 Ur Leukocyte Esterase Moderate (Negative) H 08/13/16 22:00 Urine Microscopic RBC 5-15 per hpf (0-3) H 08/13/16 22:00 Urine Microscopic WBC TNTC per hpf (0-3) H 08/13/16 22:00 Ur Eosinophil Smear 10 % (None Seen) H 08/15/16 12:00 Ur Squamous Epith Cells Many per lpf (None-Few) H 08/13/16 22:00 Urine Yeast Few per hpf (None Seen) H 08/13/16 22:00 Ur Culture Indicated? YES (NO) A 08/13/16 22:00 Vancomycin Trough 25.6 mcg/mL (10-20) H* 08/25/16 05:04 Acetaminophen < 1.0 mcg/mL (10-30) L 08/11/16 14:55 EBV Capsid Ag IgG Ab >750.0 U/mL (0.0-21.9) H 08/09/16 11:27 EBV Nuclear Ag Ab Titer 245.0 U/mL (0.0-21.9) H 08/09/16 11:27 - Clinical Findings Intake & Output: Intake & Output 08/27/16 08/27/16 08/28/16 15:59 23:59 07:59 Intake Total 1320 / 1320 100 / 100 Output Total 106 / 106 100 / 100 287 / 287 Balance 1214 / 1214 -89 / -89 -187 / -187 Weight 112.4 kg Consult Discharge Plan - Plan Instructions: Potassium Chloride (By mouth), Nystatin (On the skin), Amoxicillin/Clavulanate Potassium (By mouth), Cellulitis (DC), Sepsis (DC), Anemia (GEN), Pneumonia (DC) Additional Instructions: Mechanically altered diet with nectar thick liquids recommended. Recommend Modified Barium Swallow Study as outpatient. Referrals: NO,PCP [Primary Care Provider] - Prescriptions: Amoxicillin/Clavulanate [Augmentin] 875 mg PO BIDWM #14 tablet Nystatin POWDER [Nystop] 1 appl TP BID PRN #1 bottle PRN Reason: Rash Potassium Chloride 10 meq PO DAILY #30 tab.er.[email or web address] <Enrique Bone M - Last Filed: 08/28/16 13:29> Date of Encounter: 08/28/16 Objective PUL Vital signs: Last Vital Signs Temp 95.3 F L 08/28/16 12:00 Pulse 53 08/28/16 13:00 Resp 14 08/28/16 13:00 BP 79/42 08/28/16 13:00 Pulse Ox 97 08/28/16 13:00 Ventilator Settings Ventilator Settings: Ventilator Settings, Last 8 Hours Ventilator Mode VC+ Ventilator Mode VC+ Ventilator Mode VC+ Ventilator Mode VC+ Ventilator Mode VC+ Ventilator Mode VC+ Ventilator Mode VC+ Ventilator Mode VC+ Ventilator Mode VC+ Ventilator Mode VC+ Ventilator Mode VC+ Ventilator Mode VC+ Ventilator Mode VC+ Ventilator Tidal Volume 400 Setting Ventilator Tidal Volume 400 Setting Ventilator Tidal Volume 400 Setting Ventilator Tidal Volume 400 Setting Ventilator Tidal Volume 400 Setting Ventilator Tidal Volume 400 Setting Ventilator Tidal Volume 400 Setting Ventilator Tidal Volume 400 Setting Ventilator Tidal Volume 350 Setting Ventilator Tidal Volume 400 Setting Ventilator Tidal Volume 350 Setting Ventilator Tidal Volume 350 Setting Ventilator Tidal Volume 350 Setting Ventilator Respiratory Rate 14 Setting Ventilator Respiratory Rate 14 Setting Ventilator Respiratory Rate 14 Setting Ventilator Respiratory Rate 14 Setting Ventilator Respiratory Rate 14 Setting Ventilator Respiratory Rate 14 Setting Ventilator Respiratory Rate 14 Setting Ventilator Respiratory Rate 14 Setting Ventilator Respiratory Rate 18 Setting Ventilator Respiratory Rate 14 Setting Ventilator Respiratory Rate 18 Setting Ventilator Respiratory Rate 18 Setting Ventilator Respiratory Rate 18 Setting Actual Respiratory Rate 14 Actual Respiratory Rate 17 Actual Respiratory Rate 15 Actual Respiratory Rate 18 Actual Respiratory Rate 21 Actual Respiratory Rate 18 Actual Respiratory Rate 15 Actual Respiratory Rate 18 Actual Respiratory Rate 18 Actual Respiratory Rate 18 Actual Respiratory Rate 18 Positive End Expiratory 5 Pressure Positive End Expiratory 5 Pressure Positive End Expiratory 5 Pressure Positive End Expiratory 5 Pressure Positive End Expiratory 5 Pressure Positive End Expiratory 5 Pressure Positive End Expiratory 5 Pressure Positive End Expiratory 5 Pressure Positive End Expiratory 5 Pressure Positive End Expiratory 5 Pressure Positive End Expiratory 5 Pressure Positive End Expiratory 5 Pressure Positive End Expiratory 5 Pressure Peak Inspiratory Airway 35 Pressure Peak Inspiratory Airway 38 Pressure Peak Inspiratory Airway 38 Pressure Peak Inspiratory Airway 37 Pressure Peak Inspiratory Airway 37 Pressure Peak Inspiratory Airway 40 Pressure Peak Inspiratory Airway 36 Pressure Peak Inspiratory Airway 38 Pressure Peak Inspiratory Airway 35 Pressure Peak Inspiratory Airway 35 Pressure Peak Inspiratory Airway 32 Pressure Results - Laboratory Findings CBC and BMP: 08/28/16 05:26 08/28/16 05:11 ABG ABG pH 7.39 pH Units (7.32-7.45) 08/28/16 05:34 ABG pCO2 34 mmHg (35-45) L 08/28/16 05:34 ABG pO2 78 mmHg (85-104) L 08/28/16 05:34 ABG O2 Saturation 95 % (95-98) 08/28/16 05:34 PT/INR, D-dimer PT 14.0 Seconds (9.4-12.1) H 08/08/16 21:17 Abnormal lab findings: Abnormal lab results RBC 2.87 M/mcL (4.19-5.50) L 08/28/16 05:26 Hgb 7.4 g/dL (12.9-16.9) L D 08/28/16 05:26 Hct 23.3 % (37.5-50.1) L 08/28/16 05:26 MCV 81.2 fL (83.0-100.0) L D 08/28/16 05:26 MCH 25.8 pg (28.0-33.3) L 08/28/16 05:26 RDW 15.5 % (11.5-14.5) H 08/28/16 05:26 Eosinophils # 1.0 K/mcL (0.0-0.6) H 08/28/16 05:26 Nucleated RBCs/100 WBC 0.2 /100 WBC (0) H 08/28/16 05:26 Clumped Platelets Few (Not Present) A 08/19/16 03:28 Large Platelets Present (Not Present) A 08/13/16 03:32 Polychromasia 2+ (Not Present) A 08/27/16 04:50 Hypochromasia Present (Not Present) A 08/27/16 04:50 Poikilocytosis 1+ (Not Present) A 08/13/16 03:32 Anisocytosis 1+ (Not Present) A 08/27/16 04:50 Microcytosis Present (Not Present) A 08/19/16 03:28 Ovalocytes 1+ (Not Present) A 08/13/16 03:32 PT 14.0 Seconds (9.4-12.1) H 08/08/16 21:17 ABG pCO2 34 mmHg (35-45) L 08/28/16 05:34 ABG pO2 78 mmHg (85-104) L 08/28/16 05:34 ABG HCO3 20.6 mEQ/L (21-27) L 08/28/16 05:34 ABG Base Excess -3.9 mEq/L (-2.0 to 3.0) L 08/28/16 05:34 VBG pH 7.17 pH Units (7.32-7.42) L* 08/26/16 15:20 VBG pCO2 59 mmHg (41-51) H 08/26/16 15:20 BUN 102 mg/dL (8-26) H 08/28/16 05:11 Creatinine 4.49 mg/dL (0.72-1.25) H 08/28/16 05:11 Est GFR ( Amer) 17 (> 60) L 08/28/16 05:11 Est GFR (Non-Af Amer) 14 (> 60) L 08/28/16 05:11 Calculated Osmolality 327 (280-300) H 08/28/16 05:11 Calcium 8.2 mg/dL (8.6-10.8) L 08/28/16 05:11 Ionized Calcium 1.08 mmol/L (1.15-1.35) L 08/28/16 05:11 Phosphorus 6.9 mg/dL (2.3-4.7) H 08/28/16 05:11 Serum Total Protein 5.1 g/dL (6.0-8.3) L 08/28/16 05:11 Albumin 2.1 g/dL (3.5-5.0) L 08/28/16 05:11 Albumin/Globulin Ratio 0.7 (1.1-2.2) L 08/28/16 05:11 Prealbumin 8.0 mg/dL (18.0-45.0) L 08/14/16 04:00 Ur Specimen Adequacy See below A 08/12/16 01:40 Urine Clarity Cloudy (Clear) A 08/13/16 22:00 Urine Protein 100 mg/dL (Neg-Trace) H 08/13/16 22:00 Urine Blood Moderate (Negative) H 08/13/16 22:00 Ur Leukocyte Esterase Moderate (Negative) H 08/13/16 22:00 Urine Microscopic RBC 5-15 per hpf (0-3) H 08/13/16 22:00 Urine Microscopic WBC TNTC per hpf (0-3) H 08/13/16 22:00 Ur Eosinophil Smear 10 % (None Seen) H 08/15/16 12:00 Ur Squamous Epith Cells Many per lpf (None-Few) H 08/13/16 22:00 Urine Yeast Few per hpf (None Seen) H 08/13/16 22:00 Ur Culture Indicated? YES (NO) A 08/13/16 22:00 Vancomycin Trough 25.6 mcg/mL (10-20) H* 08/25/16 05:04 Acetaminophen < 1.0 mcg/mL (10-30) L 08/11/16 14:55 EBV Capsid Ag IgG Ab >750.0 U/mL (0.0-21.9) H 08/09/16 11:27 EBV Nuclear Ag Ab Titer 245.0 U/mL (0.0-21.9) H 08/09/16 11:27 - Clinical Findings Intake & Output: Intake & Output 08/27/16 08/28/16 08/28/16 23:59 07:59 15:59 Intake Total 100 / 100 100 / 100 Output Total 100 / 100 287 / 287 200 / 200 Balance -89 / -89 -187 / -187 -100 / -100 Weight 112.4 kg - Attending Attestation I examined this patient and my medical decision-making was reviewed with the VULCANIZING MACHINE OPERATOR/PA/Advanced Practice Nurse/Resident Physician. I agree with the documented findings, disposition and treatment plan as described except to the extent set forth below. Patient seen and examined. Labs, radiology, chart personally reviewed. Agree with resident's history and physical, assessment, plan with following comments: RECONCILER: Patient follows commands and he will need a higher sedation for patient comfort, Pulmonary: Acceptable oxygenation and ventilation, however he failed SBT. Patient remain full code at this time, however he does not want reintubation if we extubate. Cardiovascular: stable GI: Nutrition per dietary and GI prophylaxis per routine Heme: DVT prophylaxis per routine ID: Patient has been on multiple antibiotics. Renal; urine out put and renal funtion reviewed. It is very interesting what is happening to patients on dialysis, I suspect could be to do with his pulmonary hypertension and explained to the sister about this. Nephrology to discuss with the family regarding continuation of hemodialysis. His sister agreed palliative care see patient since patient wants to go home. Endorcine: blood glucose is monitored Lines: all lines checked and no evidence of infections Skin: skin care to prevent pressure ulcers per nursing routine care
[2016-08-28 06:44] LABS: ABG Base Excess -3.9 mEq/L (-2.0 to 3.0); ABG HCO3 20.6 mEQ/L (21-27); ABG Oxygen Saturation 95 % (95-98); ABG PCO2 34 mmHg (35-45); ABG PH 7.39 pH Units (7.32-7.45); ABG PO2 78 mmHg (85-104); ABG TCO2 21.6 mEq/L (20-26)
[2016-08-28 06:45] LABS: Blood Gas FiO2 30 %
[2016-08-28 06:54] LABS: Ionized Calcium 1.08 mmol/L (1.15-1.35)
[2016-08-28] MEDS: Budesonide/Formoterol 160/4.5 MDI IH SCH ×2 (07:50→21:02)
[2016-08-28] MEDS: *HR* Heparin 5,000 UNIT/ML VIAL SQ SCH ×3 (08:53→23:37)
[2016-08-28] MEDS: Lactobacillus 1 EACH CAP.SPRINK PO SCH ×2 (08:53→19:52)
[2016-08-28] MEDS: Folic Acid 1 MG TABLET PO SCH (08:53)
[2016-08-28] MEDS: Nystatin POWDER 30 GM BOTTLE TP SCH ×2 (08:53→19:53)
[2016-08-28] MEDS: Famotidine 20 MG TABLET PO SCH (08:54)
[2016-08-28] MEDS: FentaNYL (PF) 1,000 MCG in 0.9 % Sodium Chloride 80 ML IVC SCH (13:23)
[2016-08-28] MEDS: Norepinephrine 4 MG in D5% in Water 250 ML IVC SCH ×2 (13:35→23:36)
[2016-08-28] MEDS: *HR* LORazepam 0.5 MG TABLET PO SCH (15:00)
--- NOTE | 2016-08-28 19:11 | Nephrology Progress Note ---
Date of Encounter: 08/28/16 Time of Encounter: 14:00 - Assessment and Plan (1) STEPHANIE (acute kidney injury) Current Visit: Yes Status: Acute Scr slightly worse today at 4.45, GFR 14 with BUN at 102 as he did not tolerate second HD attempt becoming hemodynamically unstable. Etiology remains unclear but could be IJ catheter position related triggering arrythymia. Discussed at length goals of care with family and at this time no further dialytic attempts planned. For any further arrhythmias, would suggest adjusting IJ catheter. Await palliative care consult (2) Hyperkalemia Current Visit: Yes Status: Acute Potassium improved, will monitor (3) Anemia Current Visit: Yes Status: Chronic Hgb noted low and dropping at 7.4. Transfusion parameters per primary team. Qualifiers: Anemia type: iron deficiency Iron deficiency anemia type: inadequate dietary iron intake Qualified Code(s): D50.8 - Other iron deficiency anemias Subjective Principal diagnosis: Respiratory failure, sepsis, cellulitis Interval history: Pt seen and examined intubated and sedated with family at bedside. He did not tolerate HD again yesterday and infact became bradycardiac, hypotensive with code called within 4 mins after 56cc fluid removal with BFR of 200cc/min. Pt was resuscitated and intubated as a result and HD terminated. Family now says that pt does not want to remain intubated and wants to go home yet code status remains full till palliative care sees patient tomorrow. Objective - Vital Signs Vital signs: Vital Signs Temp Pulse Resp BP Pulse Ox 08/28/16 18:00 74 14 100/51 95 08/28/16 17:50 20 89 08/28/16 17:00 71 14 104/55 96 08/28/16 16:41 97.7 F 08/28/16 16:00 71 14 104/55 96 08/28/16 15:58 14 96 08/28/16 15:00 63 14 134/71 96 08/28/16 14:00 63 14 134/71 96 08/28/16 13:00 53 14 79/42 97 08/28/16 12:00 95.3 F L 51 17 91/53 98 08/28/16 11:21 15 97 08/28/16 11:00 61 18 102/53 99 08/28/16 10:00 63 21 126/71 100 08/28/16 09:45 18 100 08/28/16 09:00 55 15 138/81 99 08/28/16 08:00 97.7 F 65 18 112/61 99 08/28/16 07:52 18 96 08/28/16 07:00 59 18 104/63 96 08/28/16 06:04 18 96/54 94 08/28/16 06:00 61 18 96/54 96 08/28/16 05:04 64 30 96/41 100 08/28/16 04:44 67 30 103/53 100 08/28/16 04:42 98.2 F 08/28/16 04:16 30 86/52 96 08/28/16 03:00 69 30 89/48 99 08/28/16 02:08 30 93/59 99 08/28/16 02:00 73 30 93/59 99 08/28/16 01:00 69 30 82/61 99 08/28/16 00:28 97.6 F 08/28/16 00:09 30 86/72 99 08/28/16 00:00 64 30 69/54 99 08/27/16 23:00 62 30 92/62 99 08/27/16 22:13 30 96/60 97 08/27/16 22:00 61 30 89/50 98 08/27/16 21:51 61 08/27/16 21:00 59 30 105/90 93 08/27/16 20:28 96.4 F L 08/27/16 20:18 30 99/65 99 08/27/16 20:00 59 30 104/69 97 Intake and Output 08/28/16 08/28/16 08/28/16 07:59 15:59 23:59 Intake Total 100 / 100 443 / 443 Output Total 287 / 287 200 / 200 150 / 150 Balance -187 / -187 243 / 243 -150 / -150 Intake: IV Fluids 100 / 100 443 / 443 Levophed 4 MG In Dextrose 243 / 243 5% 250 ML @ 5 MCG/MIN 19 .05 mls/hr IVC [facility] [place] Rx#:[id number] Diprivan 1,000 mg In 100 100 / 100 200 / 200 ml @ 6.6 MCG/KG/MIN 4.336 mls/hr IVC .Q23H4M [place] Rx#:[id number] Oral 0 / 0 Output: Urine 75 / 75 Urethral ([place]) 75 / 75 Catheter 187 / 187 125 / 125 150 / 150 Gastric Drainage 100 / 100 Other: Weight 112.4 kg Blood Glucose* 79 Patient Weight 08/28/16 23:59 Weight 112.4 kg - General Appearance General appearance: Present: sedated on ventilator, intubated EENT: Present: ATNC Neck: Present: supple Respiratory: Present: course breath sounds Cardiology: Present: edema (anasarca), normal S1, normal S2 Dialysis Vascular Access: Venous Catheter (temporary) Gastrointestinal: Present: no tenderness, no guarding, obese Integumentary: Present: warm and dry Additional Comments: intubated, sedated Musculoskeletal: Present: no deformities Additional Comments: intubated, sedated - Lab 08/28/16 05:26 08/28/16 05:11 Most recent lab results ABG pH 7.39 pH Units (7.32-7.45) 08/28/16 05:34 ABG pCO2 34 mmHg (35-45) L 08/28/16 05:34 ABG pO2 78 mmHg (85-104) L 08/28/16 05:34 ABG HCO3 20.6 mEQ/L (21-27) L 08/28/16 05:34 ABG O2 Saturation 95 % (95-98) 08/28/16 05:34 Calcium 8.2 mg/dL (8.6-10.8) L 08/28/16 05:11 Phosphorus 6.9 mg/dL (2.3-4.7) H 08/28/16 05:11 Magnesium 1.7 mg/dL (1.6-2.6) 08/28/16 05:11 Urine Creatinine 46 mg/dL 08/14/16 04:03 Urine Sodium < 20.0 mEq/L 08/14/16 04:03 Consult Discharge Plan - Plan Instructions: Potassium Chloride (By mouth), Nystatin (On the skin), Amoxicillin/Clavulanate Potassium (By mouth), Cellulitis (DC), Sepsis (DC), Anemia (GEN), Pneumonia (DC) Additional Instructions: Mechanically altered diet with nectar thick liquids recommended. Recommend Modified Barium Swallow Study as outpatient. Referrals: NO,PCP [Primary Care Provider] - Prescriptions: Amoxicillin/Clavulanate [Augmentin] 875 mg PO BIDWM #14 tablet Nystatin POWDER [Nystop] 1 appl TP BID PRN #1 bottle PRN Reason: Rash Potassium Chloride 10 meq PO DAILY #30 tab.er.prt
[2016-08-29 05:01] LABS: Basophils # 0.1 K/mcL (0.0-0.2); Basophils % 0.4 %; Eosinophils # 1.7 K/mcL (0.0-0.6); Eosinophils % 10.8 %; Hemoglobin 8.2 g/dL (12.9-16.9); Immature Granulocytes % 1.3 % (0-4); Lymphocytes # 2.8 K/mcL (0.6-4.6); Lymphocytes % 17.8 %; Mean Corpuscular HGB Conc 30.4 g/dL (31.6-35.5); Mean Corpuscular Hemoglobin 25.2 pg (28.0-33.3); Mean Corpuscular Volume 83.1 fL (83.0-100.0); Mean Platelet Volume 9.5 fL (9.4-12.4); Monocytes # 1.9 K/mcL (0.0-1.3); Platelet Count 237 K/mcL (140-400); Red Blood Count 3.25 M/mcL (4.19-5.50); Red Cell Distribution Width 15.8 % (11.5-14.5); Segmented Neutrophils % 57.7 %
[2016-08-29 05:07] LABS: Calcium 8.4 mg/dL (8.6-10.8); Magnesium 1.7 mg/dL (1.6-2.6); Phosphorous 8.2 mg/dL (2.3-4.7); Potassium 4.6 mEq/L (3.5-4.5)
[2016-08-29 06:30] LABS: ABG Base Excess -5.5 mEq/L (-2.0 to 3.0); ABG Oxygen Saturation 98 % (95-98); ABG PCO2 38 mmHg (35-45); ABG PH 7.33 pH Units (7.32-7.45); ABG PO2 112 mmHg (85-104); ABG TCO2 21.2 mEq/L (20-26); Blood Gas FiO2 30 %
[2016-08-29] MEDS: Lactobacillus 1 EACH CAP.SPRINK PO SCH ×2 (07:55→22:24)
[2016-08-29] MEDS: Famotidine 20 MG TABLET PO SCH (07:55)
[2016-08-29] MEDS: Folic Acid 1 MG TABLET PO SCH (07:55)
[2016-08-29] MEDS: *HR* Heparin 5,000 UNIT/ML VIAL SQ SCH (07:55)
[2016-08-29] MEDS: Budesonide/Formoterol 160/4.5 MDI IH SCH ×2 (08:04→22:39)
[2016-08-29] MEDS: Nystatin POWDER 30 GM BOTTLE TP SCH (09:11)
[2016-08-29] MEDS: Gentamicin Oint 15 GM TUBE TP SCH (09:12)
[2016-08-29] MEDS: FentaNYL (PF) 1,000 MCG in 0.9 % Sodium Chloride 80 ML IVC SCH (09:12)
--- NOTE | 2016-08-29 10:36 | Palliative - Consult Note ---
Date of Encounter: 08/29/16 Time of Encounter: 10:30 - Assessment and Plan (1) Generalized pain Current Visit: Yes Status: Acute Assessment and plan: Continues on Fentanyl per ICU protocol, monitor (2) Anxiety Current Visit: Yes Status: Acute Assessment and plan: Remains on propofol per ICU protocol, monitor (3) Counseling regarding advanced care planning and goals of care Current Visit: Yes Status: Acute Assessment and plan: Meeting schedule today for 1130. Will f/u with note at that time. Palliative-CN HPI - Data of Consult Consult date: 08/29/16 Requesting Physician: Ha David MD Primary Care Provider: PCP NO - Consult Narrative History of present illness: Mr. Junior is a 46 year old male with a history of Prader Willi syndrome, mental retardation, CHF, prolonged hospital course. He was originally admitted on 08/08 with fever and bilateral leg wounds. He was treated as outpatient through [facility]. He has been aggressively treated for MRSA wounds and had a positive sputum culture for MDRO Acinetobacter. . He has had a complicated course with respiratory and renal failure, unable to tolerate dialysis, and actually coded with recent attempt at dialysis. He is currently ventilated and sedated, and on Norepinephrine for blood pressure support. At my visit, no family has arrived as of yet. He will open eyes when name called, but no other response. Appears in no distress. By chart review, his sister Bre Garcia is his caregiver. According to staff, family is considering withdrawal of life sustaining measures and considering hospice care. Patient apparently had been able to communicate that he desires ET tube out. Meeting today is scheduled for 1130. CC: Ha David MD Past Med Surg Social Fam HX - Past Medical History Medical history: CHF, dementia, GERD, GI bleed, myocardial infarction, venous stasis, other Psychiatric history: no psych history, other - Past Surgical History Surgical History: cholecystectomy, other - Social History Smoking Status: Never smoker Smokeless Tobacco Status: No Alcohol use: none Drug use: none - Family History Father History Unknown: Yes Living Status: Still Living Hx Family Cardiac Disorders: Yes (htn) Hx Family Cancer: Yes (thyroid ca) Mother Living Status: Hx Family Cardiac Disorders: Yes (chf) Hx Family Respiratory Disorders: Yes (pneumonia) Hx Family Endocrine Disorder: Yes (diabetic) Medications and Allergies Multivitamin [Multi-Day Vitamins] 1 each PO DAILY 01/07/16 [History] Ascorbic Acid [Vitamin C] 500 mg PO DAILY #30 tablet 01/09/16 [Rx] Folic Acid 0.4 mg PO DAILY #30 tablet 01/09/16 [Rx] Ferrous Gluconate 324 mg PO BID #60 tablet 02/15/16 [Rx] Lactobacillus [Culturelle] 1 each PO BID cap.sprink 06/01/16 [Rx] Zinc Sulfate 220 mg PO DAILY capsule 06/01/16 [Rx] Acetaminophen [Acetaminophen ER] 650 mg PO Q6H PRN 06/14/16 [History] Docusate [Colace] 100 mg PO BID PRN 06/14/16 [History] Famotidine [Heartburn Prevention] 20 mg PO BID 06/14/16 [History] Albuterol Neb [Proventil Neb] 2.5 mg IH Q2H PRN 08/08/16 [History] Collagenase Oint [Santyl] 1 appl TP AD 08/08/16 [History] Furosemide [Lasix] 40 mg PO BID 08/08/16 [History] Gentamicin Oint [Garamycin] 1 appl TP AD 08/08/16 [History] Ipratropium/Albuterol Neb [Duoneb] 3 ml IH QID 08/08/16 [History] Oxygen 2 l NS AD 08/08/16 [History] Amoxicillin/Clavulanate [Augmentin] 875 mg PO BIDWM #14 tablet 08/22/16 [Rx] Nystatin POWDER [Nystop] 1 appl TP BID PRN #1 bottle 08/22/16 [Rx] Potassium Chloride 10 meq PO DAILY #30 tab.er.prt 08/22/16 [Rx] Allergies cephalexin [From Keflex] Allergy (Verified 08/08/16 12:30) See Comments Pt unsure of reaction. chlorpromazine [From Thorazine] Allergy (Verified 08/08/16 12:30) See Comments [place] Allergy (Verified 08/08/16 12:30) See Comments [place] Allergy (Uncoded 08/08/16 12:30) See Comments ROS unobtainable: due to endotracheal tube Palliative Care-Exam - Constitutional Vitals: Temp Pulse Resp BP Pulse Ox 97.9 F 87 14 172/91 96 08/29/16 07:40 08/29/16 10:00 08/29/16 10:00 08/29/16 10:00 08/29/16 10:00 General appearance: Present: morbidly obese, no acute distress. Absent: febrile - Head Head Exam: Present: normal inspection, normocephalic - Respiratory Additional comments: Breath sounds course throughout anterior chest - Cardiovascular Cardiovascular exam: Present: +S1, +S2 - GI/Abdominal Exam GI/Abdominal exam: Present: diminished bowel sounds, distended, soft additional comments: Reddened in abdominal folds - Catheter Type: Urethral ([place]) - Extremities Exam Additional comments: Lower extremities with 4+edema. Both lower legs wrapped with dressings. Some blistering noted above dressings. - Neurological Exam Additional comments: Sedated on vent at this time, does attempt to open eyes when spoken to - Skin Skin exam: Present: dry, pallor, warm Internal Medicine - CN: Reslt - Labs CBC & Chem 7: 08/29/16 04:53 08/29/16 04:53 Labs: Short CBC 08/29/16 Range/Units 04:53 WBC 15.6 H (4.3-11.1) K/mcL Hgb 8.2 L (12.9-16.9) g/dL Hct 27.0 L (37.5-50.1) % Plt Count 237 (140-400) K/mcL Neutrophils # 9.0 H (1.6-8.9) K/mcL BMP 08/29/16 04:53 Sodium 144 Potassium 4.6 H Chloride 108 Carbon Dioxide 19 BUN 102 H Creatinine 4.51 H Glucose 83 Calcium 8.4 L - ABG Interpretation ABG results: ABG ABG pH 7.33 pH Units (7.32-7.45) 08/29/16 06:18 ABG pCO2 38 mmHg (35-45) 08/29/16 06:18 ABG pO2 112 mmHg (85-104) H 08/29/16 06:18 ABG O2 Saturation 98 % (95-98) 08/29/16 06:18 PT/INR, D-dimer PT 14.0 Seconds (9.4-12.1) H 08/08/16 21:17 Consult Discharge Plan - Plan Instructions: Potassium Chloride (By mouth), Nystatin (On the skin), Amoxicillin/Clavulanate Potassium (By mouth), Cellulitis (DC), Sepsis (DC), Anemia (GEN), Pneumonia (DC) Additional Instructions: Mechanically altered diet with nectar thick liquids recommended. Recommend Modified Barium Swallow Study as outpatient. Referrals: NO,PCP [Primary Care Provider] - Prescriptions: Amoxicillin/Clavulanate [Augmentin] 875 mg PO BIDWM #14 tablet Nystatin POWDER [Nystop] 1 appl TP BID PRN #1 bottle PRN Reason: Rash Potassium Chloride 10 meq PO DAILY #30 tab.er.prt Palliative Quality Palliative Quality: Screen for Code Status: NA (awaiting family meeting), Screen for Goals of Care: NA, Screen for Pain: Yes, If Pain Regimen Started, Initiate Bowel Regimen: NA, Screen for Nausea/Vomitting: NA
--- NOTE | 2016-08-29 13:11 | Nephrology Progress Note ---
Date of Encounter: 08/29/16 Time of Encounter: 12:00 - Assessment and Plan (1) STEPHANIE (acute kidney injury) Current Visit: Yes Status: Acute SCr stable at plateau at 4.51, GFR 14. Given hemodynamis instability, cannot offer TECHNICAL ILLUSTRATOR at this time. Family weaning towards terminal wean off vent and DNR status. Will await meeting and if so, will sign off. Reconsult prn (2) Hyperkalemia Current Visit: Yes Status: Acute Potassium worse at 4.6, will monitor (3) Anemia Current Visit: Yes Status: Chronic Hgb noted low but stable at 8.2, will monitor Qualifiers: Anemia type: iron deficiency Iron deficiency anemia type: inadequate dietary iron intake Qualified Code(s): D50.8 - Other iron deficiency anemias Subjective Principal diagnosis: Respiratory failure, sepsis, cellulitis Interval history: Pt seen and examined appears comfortable with family at bedside still intubated and sedated on pressors. Family meeting planned today. Objective - Vital Signs Vital signs: Vital Signs Temp Pulse Resp BP Pulse Ox 08/29/16 12:14 98.2 F 08/29/16 12:00 98.2 F 78 16 107/58 96 08/29/16 11:07 14 95 08/29/16 10:56 66 14 104/59 95 08/29/16 10:00 87 14 172/91 96 08/29/16 09:42 17 96 08/29/16 09:00 70 14 113/55 96 08/29/16 08:04 14 96 08/29/16 08:00 97.9 F 68 14 103/55 96 08/29/16 07:40 97.9 F 08/29/16 06:00 65 14 108/57 96 08/29/16 05:31 66 08/29/16 05:00 67 14 109/57 96 08/29/16 04:57 97.9 F 08/29/16 04:05 14 103/58 96 08/29/16 04:00 67 14 114/58 96 08/29/16 03:00 67 14 106/56 96 08/29/16 02:00 68 14 107/54 96 08/29/16 01:00 69 14 104/52 96 08/29/16 00:28 14 83/37 96 08/29/16 00:19 98.3 F 08/29/16 00:00 72 14 82/39 96 08/28/16 23:00 73 14 105/57 95 08/28/16 22:00 73 16 96/51 94 08/28/16 21:02 14 112/64 94 08/28/16 21:00 75 14 112/64 94 08/28/16 20:06 98.2 F 08/28/16 20:00 76 14 99/49 96 08/28/16 19:15 74 14 103/52 96 08/28/16 18:00 74 14 100/51 95 08/28/16 17:50 20 89 08/28/16 17:00 71 14 104/55 96 08/28/16 16:41 97.7 F 08/28/16 16:00 71 14 104/55 96 08/28/16 15:58 14 96 08/28/16 15:00 63 14 134/71 96 08/28/16 14:00 63 14 134/71 96 Intake and Output 08/28/16 08/29/16 08/29/16 23:59 07:59 15:59 Intake Total 454 / 454 100 / 100 471.2 / 471.2 Output Total 275 / 275 425 / 425 200 / 200 Balance 179 / 179 -325 / -325 271.2 / 271.2 Intake: IV Fluids 454 / 454 100 / 100 471.2 / 471.2 FentaNYL (PF) 1,000 MCG 123 / 123 In 0.9 % Sodium Chloride 80 ML @ 50 MCG/HR 5 mls/ hr IVC [facility] [place] Rx#: [id number] Levophed 4 MG In Dextrose 254 / 254 180 / 180 5% 250 ML @ 5 MCG/MIN 19 .05 mls/hr IVC [facility] [place] Rx#:[id number] Diprivan 1,000 mg In 100 200 / 200 100 / 100 168.2 / 168.2 ml @ 6.6 MCG/KG/MIN 4.336 mls/hr IVC .Q23H4M [place] Rx#:[id number] Output: Catheter 275 / 275 425 / 425 200 / 200 Other: Weight 112.309 kg Blood Glucose* 85 79 85 Patient Weight 08/29/16 23:59 Weight 112.309 kg - General Appearance General appearance: Present: sedated on ventilator, intubated EENT: Present: ATNC Neck: Present: no JVD, supple Respiratory: Present: course breath sounds Cardiology: Present: edema (anasarca), normal S1, normal S2 Dialysis Vascular Access: Venous Catheter (temporary) Gastrointestinal: Present: no tenderness, no guarding Integumentary: Present: warm and dry Additional Comments: sedated, intubated Musculoskeletal: Present: no deformities Additional Comments: sedated, intubated - Lab 08/29/16 04:53 08/29/16 04:53 Most recent lab results ABG pH 7.33 pH Units (7.32-7.45) 08/29/16 06:18 ABG pCO2 38 mmHg (35-45) 08/29/16 06:18 ABG pO2 112 mmHg (85-104) H 08/29/16 06:18 ABG HCO3 20.0 mEQ/L (21-27) L 08/29/16 06:18 ABG O2 Saturation 98 % (95-98) 08/29/16 06:18 Calcium 8.4 mg/dL (8.6-10.8) L 08/29/16 04:53 Phosphorus 8.2 mg/dL (2.3-4.7) H 08/29/16 04:53 Magnesium 1.7 mg/dL (1.6-2.6) 08/29/16 04:53 Urine Creatinine 46 mg/dL 08/14/16 04:03 Urine Sodium < 20.0 mEq/L 08/14/16 04:03 Consult Discharge Plan - Plan Instructions: Potassium Chloride (By mouth), Nystatin (On the skin), Amoxicillin/Clavulanate Potassium (By mouth), Cellulitis (DC), Sepsis (DC), Anemia (GEN), Pneumonia (DC) Additional Instructions: Mechanically altered diet with nectar thick liquids recommended. Recommend Modified Barium Swallow Study as outpatient. Referrals: NO,PCP [Primary Care Provider] - Prescriptions: Amoxicillin/Clavulanate [Augmentin] 875 mg PO BIDWM #14 tablet Nystatin POWDER [Nystop] 1 appl TP BID PRN #1 bottle PRN Reason: Rash Potassium Chloride 10 meq PO DAILY #30 tab.er.prt
--- NOTE | 2016-08-29 13:21 | Event Note ---
Date of Encounter: 08/29/16 Time of Encounter: 12:40 Meeting with pt sister (Bre - guardian), brother n law, father, nephew, Pt primary nurse Andrea, Dr. Bone, Dr. Pena and palliative CONTRACT DESIGNER/major gifts manager re : goals of care. Family updated on clinical status. Goals of care discussion. Patient to be extubated to bipap later this afternoon, no reintubation or resuscitation will be performed. Code status changed to DNR/DNI. Will monitor pt - eventually continuation of pressors, etc will need revisited. Stay after initial meeting to give Bre information re: what hospice transition would look like if they decide to proceed with comfort care only. Answered many questions she had re: previous ECF, insurance, and Medicaid. Family to discuss and consider. Will f/u in am, or later today if needed.
--- NOTE | 2016-08-29 14:00 | Pulmonology Progress Note ---
<Aaron Rocha - Last Filed: 08/29/16 14:25> Date of Encounter: 08/29/16 Time of Encounter: 13:48 Assessment and Plan (1) Acute and chronic respiratory failure Current Visit: Yes Status: Acute Goals of care were discussed with the patient's power of ip technology transactions attorney his sister. Also discussed with several other family members today. It seems that the patient's wishes would be to have the endotracheal tube removed. We will extubate the patient today and trance position to BiPAP if he needs it after extubation. Plan will be to not reintubate. Ultimately the goal of the family is significant the patient home where he be comfortable. Will not be performing any more dialysis or aggressive treatments. (2) Sepsis Current Visit: Yes Status: Acute Patient no longer meets SIRS criteria. He is afebrile. However white count is trending up. Sources would include infection from chronic lower extremity wounds and aspiration pneumonia. She has been off antibiotics for several days now. Does have a increasing leukocytosis. Clinically he appears to be improving. We will hold off on any further antibiotics at this time her discussion with the family members. However if patient develops fever or declines clinically may be reasonable to restart antibiotics as ultimately the goals to get the patient back to where he can be comfortable. (3) Chronic wound of extremity Current Visit: Yes Status: Chronic Continue wound care. (4) Cellulitis Current Visit: Yes Status: Acute as stated above. (5) Anasarca Current Visit: Yes Status: Acute patient is volume overloaded. Avoid excess fluid intake. (6) History of cardiac arrest Current Visit: Yes Status: Acute occurred with dialysis.. No further workup of this time per family's wishes and goals care. (7) Prader-Willi syndrome Current Visit: Yes Status: Acute will need caloric restrictions when able to have a diet. (8) Acute kidney injury Current Visit: Yes Status: Acute FeNA 0.7 SCR rising mildly since yesterday. urine output improving. Etiology is likley multifactoria with Sepsis in the setting of elevated vancomycin trough. Check urine eosinophils ( has some peripheral eosinophilia) Will give a trial of lasix ( may be prerenal from decreased cardiac output from volume overload in the setting of right sided heart failure ( prior echo did show dilated RV). We will repeat BMP this after noon. Strict I's and Os (9) DVT prophylaxis Current Visit: Yes Status: Acute Neuro: Prader Willi syndrome. Currently sedated. Will plan to wean sedation. And extubate today. HEENT: No issues at this time. NG and ET tubes in place. Heart: Possible Cor pulmonale, pulmonary hypertention. 2 separate Cardiac arrests this admission. Volume overloaded. Possible Right sided heart failure given dilated RV seen on prior echocardiogram. Avoid excessive IV fluids. Pulm: as stated above. GI: NO issues at this time. Renal: Acute renal failure. No dialysis per Goals of care. : Difficult velasquez placement. Appreciate Urology. ID: [id number] trending up. Hold off on antibiotics per goals of care Goals of care: DNRCA DNI. Goals is to get patient home. No further dialysis or agreessive measures. Do not reintubate. Subjective Principal diagnosis: Respiratory failure, sepsis, cellulitis Interval history: No major events overnight. Patient is currently intubated and sedated. We did have a family meeting this AM discussing goals of care. Plan to extubate patient without reintubation. Will plan to extubate today. Possible transfer to [facility] tomorrow and ultimately the goal will be to transfer the patient home. We will not be performing any dialysis as well. Family is present and agrees to the plan. Objective PUL Vital signs: Last Vital Signs Temp 98.2 F 08/29/16 13:30 Pulse 83 08/29/16 13:30 Resp 14 08/29/16 13:30 BP 90/63 08/29/16 13:30 Pulse Ox 96 08/29/16 13:30 Gen.: This is a well-developed well-nourished 46-year-old male who is currently intubated and sedated. Tolerating the vent at this time. HEENT: Head is normocephalic atraumatic. Anicteric sclera, pupils equal round react to light. Moist mucous membranes. The endotracheal tube and OG tube are in place. Trachea midline. Heart: Regular rate and rhythm without murmurs rubs or gallops. Lungs: Mild expiratory wheezes bilaterally otherwise clear to auscultate bilaterally. Normal rise x-rays of the chest wall bilaterally. Abdomen: Obese, nondistended, soft palpation. Musculoskeletal: Patient does have short stature and short hands and feet for his age however this is characteristic of a Prader-Willi syndrome. Extremities: Patient has anasarca: Lower extremity wounds are well dressed and clean at this time. Integument: No new rashes or lesions noted. Ventilator Settings Ventilator Settings: Ventilator Settings, Last 8 Hours Ventilator Mode VC+ Ventilator Mode VC+ Ventilator Mode VC+ Ventilator Mode VC+ Ventilator Mode VC+ Ventilator Mode VC+ Ventilator Mode VC+ Ventilator Mode VC+ Ventilator Mode VC+ Ventilator Mode VC+ Ventilator Mode VC+ Ventilator Tidal Volume 400 Setting Ventilator Tidal Volume 400 Setting Ventilator Tidal Volume 400 Setting Ventilator Tidal Volume 400 Setting Ventilator Tidal Volume 400 Setting Ventilator Tidal Volume 400 Setting Ventilator Tidal Volume 400 Setting Ventilator Tidal Volume 400 Setting Ventilator Tidal Volume 400 Setting Ventilator Tidal Volume 400 Setting Ventilator Tidal Volume 400 Setting Ventilator Respiratory Rate 14 Setting Ventilator Respiratory Rate 14 Setting Ventilator Respiratory Rate 14 Setting Ventilator Respiratory Rate 14 Setting Ventilator Respiratory Rate 14 Setting Ventilator Respiratory Rate 14 Setting Ventilator Respiratory Rate 14 Setting Ventilator Respiratory Rate 14 Setting Ventilator Respiratory Rate 14 Setting Ventilator Respiratory Rate 14 Setting Ventilator Respiratory Rate 14 Setting Actual Respiratory Rate 14 Actual Respiratory Rate 14 Actual Respiratory Rate 14 Actual Respiratory Rate 14 Actual Respiratory Rate 14 Actual Respiratory Rate 18 Actual Respiratory Rate 14 Actual Respiratory Rate 14 Actual Respiratory Rate 14 Positive End Expiratory 5 Pressure Positive End Expiratory 5 Pressure Positive End Expiratory 5 Pressure Positive End Expiratory 5 Pressure Positive End Expiratory 5 Pressure Positive End Expiratory 5 Pressure Positive End Expiratory 5 Pressure Positive End Expiratory 5 Pressure Positive End Expiratory 5 Pressure Positive End Expiratory 5 Pressure Positive End Expiratory 5 Pressure Peak Inspiratory Airway 24 Pressure Peak Inspiratory Airway 24 Pressure Peak Inspiratory Airway 29 Pressure Peak Inspiratory Airway 29 Pressure Peak Inspiratory Airway 31 Pressure Peak Inspiratory Airway 38 Pressure Peak Inspiratory Airway 34 Pressure Peak Inspiratory Airway 33 Pressure Results - Laboratory Findings CBC and BMP: 08/29/16 04:53 08/29/16 04:53 ABG ABG pH 7.33 pH Units (7.32-7.45) 08/29/16 06:18 ABG pCO2 38 mmHg (35-45) 08/29/16 06:18 ABG pO2 112 mmHg (85-104) H 08/29/16 06:18 ABG O2 Saturation 98 % (95-98) 08/29/16 06:18 PT/INR, D-dimer PT 14.0 Seconds (9.4-12.1) H 08/08/16 21:17 Abnormal lab findings: Abnormal lab results WBC 15.6 K/mcL (4.3-11.1) H 08/29/16 04:53 RBC 3.25 M/mcL (4.19-5.50) L 08/29/16 04:53 Hgb 8.2 g/dL (12.9-16.9) L 08/29/16 04:53 Hct 27.0 % (37.5-50.1) L 08/29/16 04:53 MCH 25.2 pg (28.0-33.3) L 08/29/16 04:53 MCHC 30.4 g/dL (31.6-35.5) L 08/29/16 04:53 RDW 15.8 % (11.5-14.5) H 08/29/16 04:53 Neutrophils # 9.0 K/mcL (1.6-8.9) H 08/29/16 04:53 Monocytes # 1.9 K/mcL (0.0-1.3) H 08/29/16 04:53 Eosinophils # 1.7 K/mcL (0.0-0.6) H 08/29/16 04:53 Nucleated RBCs/100 WBC 0.2 /100 WBC (0) H 08/28/16 05:26 Clumped Platelets Few (Not Present) A 08/19/16 03:28 Large Platelets Present (Not Present) A 08/13/16 03:32 Polychromasia 2+ (Not Present) A 08/27/16 04:50 Hypochromasia Present (Not Present) A 08/27/16 04:50 Poikilocytosis 1+ (Not Present) A 08/13/16 03:32 Anisocytosis 1+ (Not Present) A 08/27/16 04:50 Microcytosis Present (Not Present) A 08/19/16 03:28 Ovalocytes 1+ (Not Present) A 08/13/16 03:32 PT 14.0 Seconds (9.4-12.1) H 08/08/16 21:17 ABG pO2 112 mmHg (85-104) H 08/29/16 06:18 ABG HCO3 20.0 mEQ/L (21-27) L 08/29/16 06:18 ABG Base Excess -5.5 mEq/L (-2.0 to 3.0) L 08/29/16 06:18 VBG pH 7.17 pH Units (7.32-7.42) L* 08/26/16 15:20 VBG pCO2 59 mmHg (41-51) H 08/26/16 15:20 Potassium 4.6 mEq/L (3.5-4.5) H 08/29/16 04:53 BUN 102 mg/dL (8-26) H 08/29/16 04:53 Creatinine 4.51 mg/dL (0.72-1.25) H 08/29/16 04:53 Est GFR ( Amer) 17 (> 60) L 08/29/16 04:53 Est GFR (Non-Af Amer) 14 (> 60) L 08/29/16 04:53 Calculated Osmolality 329 (280-300) H 08/29/16 04:53 Calcium 8.4 mg/dL (8.6-10.8) L 08/29/16 04:53 Ionized Calcium 1.08 mmol/L (1.15-1.35) L 08/28/16 05:11 Phosphorus 8.2 mg/dL (2.3-4.7) H 08/29/16 04:53 Serum Total Protein 5.1 g/dL (6.0-8.3) L 08/28/16 05:11 Albumin 2.1 g/dL (3.5-5.0) L 08/28/16 05:11 Albumin/Globulin Ratio 0.7 (1.1-2.2) L 08/28/16 05:11 Prealbumin 8.0 mg/dL (18.0-45.0) L 08/14/16 04:00 Ur Specimen Adequacy See below A 08/12/16 01:40 Urine Clarity Cloudy (Clear) A 08/13/16 22:00 Urine Protein 100 mg/dL (Neg-Trace) H 08/13/16 22:00 Urine Blood Moderate (Negative) H 08/13/16 22:00 Ur Leukocyte Esterase Moderate (Negative) H 08/13/16 22:00 Urine Microscopic RBC 5-15 per hpf (0-3) H 08/13/16 22:00 Urine Microscopic WBC TNTC per hpf (0-3) H 08/13/16 22:00 Ur Eosinophil Smear 10 % (None Seen) H 08/15/16 12:00 Ur Squamous Epith Cells Many per lpf (None-Few) H 08/13/16 22:00 Urine Yeast Few per hpf (None Seen) H 08/13/16 22:00 Ur Culture Indicated? YES (NO) A 08/13/16 22:00 Vancomycin Trough 25.6 mcg/mL (10-20) H* 08/25/16 05:04 Acetaminophen < 1.0 mcg/mL (10-30) L 08/11/16 14:55 EBV Capsid Ag IgG Ab >750.0 U/mL (0.0-21.9) H 08/09/16 11:27 EBV Nuclear Ag Ab Titer 245.0 U/mL (0.0-21.9) H 08/09/16 11:27 - Microbiology Findings Microbiology Findings: Microbiology, Last 48 Hours 08/23/16 15:30 Blood Culture - Final Peripheral Venipuncture No growth. 08/23/16 15:30 Blood Culture - Final Peripheral Venipuncture No growth. - Clinical Findings Intake & Output: Intake & Output 08/28/16 08/29/16 08/29/16 23:59 07:59 15:59 Intake Total 454 / 454 100 / 100 471.2 / 471.2 Output Total 275 / 275 425 / 425 200 / 200 Balance 179 / 179 -325 / -325 271.2 / 271.2 Weight 112.309 kg Consult Discharge Plan - Plan Instructions: Potassium Chloride (By mouth), Nystatin (On the skin), Amoxicillin/Clavulanate Potassium (By mouth), Cellulitis (DC), Sepsis (DC), Anemia (GEN), Pneumonia (DC) Additional Instructions: Mechanically altered diet with nectar thick liquids recommended. Recommend Modified Barium Swallow Study as outpatient. Referrals: NO,PCP [Primary Care Provider] - Prescriptions: Amoxicillin/Clavulanate [Augmentin] 875 mg PO BIDWM #14 tablet Nystatin POWDER [Nystop] 1 appl TP BID PRN #1 bottle PRN Reason: Rash Potassium Chloride 10 meq PO DAILY #30 tab.er.prt <Enrique Bone - Last Filed: 08/29/16 16:48> Date of Encounter: 08/29/16 Objective PUL Vital signs: Last Vital Signs Temp 98.2 F 08/29/16 13:30 Pulse 83 08/29/16 13:30 Resp 14 08/29/16 13:30 BP 90/63 08/29/16 13:30 Pulse Ox 96 08/29/16 13:30 Ventilator Settings Ventilator Settings: Ventilator Settings, Last 8 Hours Ventilator Mode VC+ Ventilator Mode VC+ Ventilator Mode VC+ Ventilator Mode VC+ Ventilator Mode VC+ Ventilator Mode VC+ Ventilator Mode VC+ Ventilator Tidal Volume 400 Setting Ventilator Tidal Volume 400 Setting Ventilator Tidal Volume 400 Setting Ventilator Tidal Volume 400 Setting Ventilator Tidal Volume 400 Setting Ventilator Tidal Volume 400 Setting Ventilator Tidal Volume 400 Setting Ventilator Respiratory Rate 14 Setting Ventilator Respiratory Rate 14 Setting Ventilator Respiratory Rate 14 Setting Ventilator Respiratory Rate 14 Setting Ventilator Respiratory Rate 14 Setting Ventilator Respiratory Rate 14 Setting Ventilator Respiratory Rate 14 Setting Actual Respiratory Rate 14 Actual Respiratory Rate 14 Actual Respiratory Rate 14 Actual Respiratory Rate 14 Actual Respiratory Rate 14 Actual Respiratory Rate 18 Actual Respiratory Rate 14 Positive End Expiratory 5 Pressure Positive End Expiratory 5 Pressure Positive End Expiratory 5 Pressure Positive End Expiratory 5 Pressure Positive End Expiratory 5 Pressure Positive End Expiratory 5 Pressure Positive End Expiratory 5 Pressure Peak Inspiratory Airway 24 Pressure Peak Inspiratory Airway 24 Pressure Peak Inspiratory Airway 29 Pressure Peak Inspiratory Airway 29 Pressure Peak Inspiratory Airway 31 Pressure Peak Inspiratory Airway 38 Pressure Peak Inspiratory Airway 34 Pressure Results - Laboratory Findings CBC and BMP: 08/29/16 04:53 08/29/16 04:53 ABG ABG pH 7.33 pH Units (7.32-7.45) 08/29/16 06:18 ABG pCO2 38 mmHg (35-45) 08/29/16 06:18 ABG pO2 112 mmHg (85-104) H 08/29/16 06:18 ABG O2 Saturation 98 % (95-98) 08/29/16 06:18 PT/INR, D-dimer PT 14.0 Seconds (9.4-12.1) H 08/08/16 21:17 Abnormal lab findings: Abnormal lab results WBC 15.6 K/mcL (4.3-11.1) H 08/29/16 04:53 RBC 3.25 M/mcL (4.19-5.50) L 08/29/16 04:53 Hgb 8.2 g/dL (12.9-16.9) L 08/29/16 04:53 Hct 27.0 % (37.5-50.1) L 08/29/16 04:53 MCH 25.2 pg (28.0-33.3) L 08/29/16 04:53 MCHC 30.4 g/dL (31.6-35.5) L 08/29/16 04:53 RDW 15.8 % (11.5-14.5) H 08/29/16 04:53 Neutrophils # 9.0 K/mcL (1.6-8.9) H 08/29/16 04:53 Monocytes # 1.9 K/mcL (0.0-1.3) H 08/29/16 04:53 Eosinophils # 1.7 K/mcL (0.0-0.6) H 08/29/16 04:53 Nucleated RBCs/100 WBC 0.2 /100 WBC (0) H 08/28/16 05:26 Clumped Platelets Few (Not Present) A 08/19/16 03:28 Large Platelets Present (Not Present) A 08/13/16 03:32 Polychromasia 2+ (Not Present) A 08/27/16 04:50 Hypochromasia Present (Not Present) A 08/27/16 04:50 Poikilocytosis 1+ (Not Present) A 08/13/16 03:32 Anisocytosis 1+ (Not Present) A 08/27/16 04:50 Microcytosis Present (Not Present) A 08/19/16 03:28 Ovalocytes 1+ (Not Present) A 08/13/16 03:32 PT 14.0 Seconds (9.4-12.1) H 08/08/16 21:17 ABG pO2 112 mmHg (85-104) H 08/29/16 06:18 ABG HCO3 20.0 mEQ/L (21-27) L 08/29/16 06:18 ABG Base Excess -5.5 mEq/L (-2.0 to 3.0) L 08/29/16 06:18 VBG pH 7.17 pH Units (7.32-7.42) L* 08/26/16 15:20 VBG pCO2 59 mmHg (41-51) H 08/26/16 15:20 Potassium 4.6 mEq/L (3.5-4.5) H 08/29/16 04:53 BUN 102 mg/dL (8-26) H 08/29/16 04:53 Creatinine 4.51 mg/dL (0.72-1.25) H 08/29/16 04:53 Est GFR ( Amer) 17 (> 60) L 08/29/16 04:53 Est GFR (Non-Af Amer) 14 (> 60) L 08/29/16 04:53 Calculated Osmolality 329 (280-300) H 08/29/16 04:53 Calcium 8.4 mg/dL (8.6-10.8) L 08/29/16 04:53 Ionized Calcium 1.08 mmol/L (1.15-1.35) L 08/28/16 05:11 Phosphorus 8.2 mg/dL (2.3-4.7) H 08/29/16 04:53 Serum Total Protein 5.1 g/dL (6.0-8.3) L 08/28/16 05:11 Albumin 2.1 g/dL (3.5-5.0) L 08/28/16 05:11 Albumin/Globulin Ratio 0.7 (1.1-2.2) L 08/28/16 05:11 Prealbumin 8.0 mg/dL (18.0-45.0) L 08/14/16 04:00 Ur Specimen Adequacy See below A 08/12/16 01:40 Urine Clarity Cloudy (Clear) A 08/13/16 22:00 Urine Protein 100 mg/dL (Neg-Trace) H 08/13/16 22:00 Urine Blood Moderate (Negative) H 08/13/16 22:00 Ur Leukocyte Esterase Moderate (Negative) H 08/13/16 22:00 Urine Microscopic RBC 5-15 per hpf (0-3) H 08/13/16 22:00 Urine Microscopic WBC TNTC per hpf (0-3) H 08/13/16 22:00 Ur Eosinophil Smear 10 % (None Seen) H 08/15/16 12:00 Ur Squamous Epith Cells Many per lpf (None-Few) H 08/13/16 22:00 Urine Yeast Few per hpf (None Seen) H 08/13/16 22:00 Ur Culture Indicated? YES (NO) A 08/13/16 22:00 Vancomycin Trough 25.6 mcg/mL (10-20) H* 08/25/16 05:04 Acetaminophen < 1.0 mcg/mL (10-30) L 08/11/16 14:55 EBV Capsid Ag IgG Ab >750.0 U/mL (0.0-21.9) H 08/09/16 11:27 EBV Nuclear Ag Ab Titer 245.0 U/mL (0.0-21.9) H 08/09/16 11:27 - Microbiology Findings Microbiology Findings: Microbiology, Last 48 Hours 08/23/16 15:30 Blood Culture - Final Peripheral Venipuncture No growth. 08/23/16 15:30 Blood Culture - Final Peripheral Venipuncture No growth. - Clinical Findings Intake & Output: Intake & Output 08/29/16 08/29/16 08/29/16 07:59 15:59 23:59 Intake Total 100 / 100 471.2 / 471.2 Output Total 425 / 425 200 / 200 Balance -325 / -325 271.2 / 271.2 Weight 112.309 kg - Attending Attestation I examined this patient and my medical decision-making was reviewed with the GLASS FURNACE TENDER/PA/Advanced Practice Nurse/Resident Physician. I agree with the documented findings, disposition and treatment plan as described except to the extent set forth below. Patient seen and examined. Labs, radiology, chart personally reviewed. Agree with resident's history and physical, assessment, plan with following comments: WAGON DRILLER: Patient follows commands, Pulmonary: Acceptable oxygenation and ventilation and patient was successfully extubated. Cardiovascular: Shock which improved after extubation which could be related to sedation GI: Nutrition per dietary and GI prophylaxis per routine. Swallowing evaluation Heme: DVT prophylaxis per routine ID: Patient had multiple antibiotics Renal; urine out put and renal funtion reviewed. Appreciate nephrology's input. Endorcine: blood glucose is monitored Lines: all lines checked and no evidence of infections Skin: skin care to prevent pressure ulcers per nursing routine care Family meeting with palliative care and nephrology with the nurses in the home. Final decision patient to be DNR comfort care. Transfer patient out of ICU to the floor.
[2016-08-29] MEDS ORDERED: *HR* LORazepam 2 MG/ML VIAL IVP PRN ×2 (14:10→15:29)
[2016-08-29] MEDS ORDERED: *HR* FentaNYL (PF) 100 MCG/2 ML VIAL IVP PRN ×2 (14:10→15:29)
[2016-08-29] MEDS ORDERED: DiphenhydraMINE CREAM 28.4 GM TUBE TP SCH (15:00)
--- NOTE | 2016-08-29 15:16 | Event Note ---
Date of Encounter: 08/29/16 Time of Encounter: 14:30 Patient now extubated and conversing. C/o itching tele pads and asking to be taken off. D/W sister Bre and again discussed comfort care. She requested D/ C tele and comfort measures only. Transitioned to DNRCC. Most likely will transition to palliative unit under hospitalist and work on plan to d/c home with hospice. D/W pt primary nurse, Dr. Salty Mendez and Dr. Bone notified.
[2016-08-29] MEDS ORDERED: Acetaminophen 325 MG TABLET PO PRN (15:29)
[2016-08-29] MEDS ORDERED: D5% in Water 1,000 ML IVC PRN (15:29)
[2016-08-29] MEDS ORDERED: *HR* Dextrose 50 % in Water (Syg) 50 ML SYRINGE IVP PRN (15:29)
[2016-08-29] MEDS ORDERED: Dextrose Gel 15 GM PO PRN ×2 (15:29)
[2016-08-29] MEDS ORDERED: Ondansetron ODT 4 MG TAB.RAPDIS SL PRN (15:29)
[2016-08-29] MEDS ORDERED: Naloxone 0.4 MG/ML INJ IVP PRN (15:29)
[2016-08-29] MEDS ORDERED: Ipratropium/Albuterol Neb 3 ML IH PRN (15:29)
[2016-08-29] MEDS ORDERED: Desitin (Zinc Oxide) 56 GM TUBE TP PRN (15:29)
[2016-08-29] MEDS: DiphenhydraMINE CREAM 28.4 GM TUBE TP SCH (18:06)
[2016-08-30] MEDS: Lactobacillus 1 EACH CAP.SPRINK PO SCH ×2 (08:13→21:58)
[2016-08-30] MEDS: Famotidine 20 MG TABLET PO SCH (08:14)
[2016-08-30] MEDS: Nystatin POWDER 30 GM BOTTLE TP SCH ×3 (08:14→21:58)
[2016-08-30] MEDS: DiphenhydraMINE CREAM 28.4 GM TUBE TP SCH ×2 (08:16→21:57)
[2016-08-30] MEDS ORDERED: Acetaminophen 325 MG TABLET PO PRN (08:52)
[2016-08-30] MEDS ORDERED: *HR* LORazepam Oral Conc 2 MG/ML PO PRN ×2 (09:42→16:33)
[2016-08-30] MEDS ORDERED: OxyCODONE CONC 5 MG/0.25 ML ORAL.SYG PO PRN (09:43)
--- NOTE | 2016-08-30 10:10 | Palliative Progress Note ---
Date of Encounter: 08/30/16 Time of Encounter: 10:00 - Assessment and plan (1) Dyspnea Current Visit: Yes Status: Acute Assessment and plan: Continue supportive oxygen, bipap PRN. Asking for aerosols -- will order Duoneb QID. Oxycodone PRN for dyspnea crisis (2) Generalized pain Current Visit: Yes Status: Acute Assessment and plan: Transition IV Fentanyl to Oxycodone concentrate for pain. Avoid Morphine r/t renal function (3) Anxiety Current Visit: Yes Status: Acute Assessment and plan: Transition IV Ativan to oral concentrate as he desires IV access removed (4) Counseling regarding advanced care planning and goals of care Current Visit: Yes Status: Acute Assessment and plan: Planning for d/c tomorrow home with hospice care. DNRCC state form signed by guardian. [facility] to set up DME's today. D/W Dr. 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 Denies any pain or discomfort. Wants IV lines out. Sister at bedside. States he was up most of night. Anxious to go home tomorrow. - Constitutional Vitals: Abnormal lab results WBC 15.6 K/mcL (4.3-11.1) H 08/29/16 04:53 RBC 3.25 M/mcL (4.19-5.50) L 08/29/16 04:53 Hgb 8.2 g/dL (12.9-16.9) L 08/29/16 04:53 Hct 27.0 % (37.5-50.1) L 08/29/16 04:53 MCH 25.2 pg (28.0-33.3) L 08/29/16 04:53 MCHC 30.4 g/dL (31.6-35.5) L 08/29/16 04:53 RDW 15.8 % (11.5-14.5) H 08/29/16 04:53 Neutrophils # 9.0 K/mcL (1.6-8.9) H 08/29/16 04:53 Monocytes # 1.9 K/mcL (0.0-1.3) H 08/29/16 04:53 Eosinophils # 1.7 K/mcL (0.0-0.6) H 08/29/16 04:53 Nucleated RBCs/100 WBC 0.2 /100 WBC (0) H 08/28/16 05:26 Clumped Platelets Few (Not Present) A 08/19/16 03:28 Large Platelets Present (Not Present) A 08/13/16 03:32 Polychromasia 2+ (Not Present) A 08/27/16 04:50 Hypochromasia Present (Not Present) A 08/27/16 04:50 Poikilocytosis 1+ (Not Present) A 08/13/16 03:32 Anisocytosis 1+ (Not Present) A 08/27/16 04:50 Microcytosis Present (Not Present) A 08/19/16 03:28 Ovalocytes 1+ (Not Present) A 08/13/16 03:32 PT 14.0 Seconds (9.4-12.1) H 08/08/16 21:17 ABG pO2 112 mmHg (85-104) H 08/29/16 06:18 ABG HCO3 20.0 mEQ/L (21-27) L 08/29/16 06:18 ABG Base Excess -5.5 mEq/L (-2.0 to 3.0) L 08/29/16 06:18 VBG pH 7.17 pH Units (7.32-7.42) L* 08/26/16 15:20 VBG pCO2 59 mmHg (41-51) H 08/26/16 15:20 Potassium 4.6 mEq/L (3.5-4.5) H 08/29/16 04:53 BUN 102 mg/dL (8-26) H 08/29/16 04:53 Creatinine 4.51 mg/dL (0.72-1.25) H 08/29/16 04:53 Est GFR ( Amer) 17 (> 60) L 08/29/16 04:53 Est GFR (Non-Af Amer) 14 (> 60) L 08/29/16 04:53 Calculated Osmolality 329 (280-300) H 08/29/16 04:53 Calcium 8.4 mg/dL (8.6-10.8) L 08/29/16 04:53 Ionized Calcium 1.08 mmol/L (1.15-1.35) L 08/28/16 05:11 Phosphorus 8.2 mg/dL (2.3-4.7) H 08/29/16 04:53 Serum Total Protein 5.1 g/dL (6.0-8.3) L 08/28/16 05:11 Albumin 2.1 g/dL (3.5-5.0) L 08/28/16 05:11 Albumin/Globulin Ratio 0.7 (1.1-2.2) L 08/28/16 05:11 Prealbumin 8.0 mg/dL (18.0-45.0) L 08/14/16 04:00 Ur Specimen Adequacy See below A 08/12/16 01:40 Urine Clarity Cloudy (Clear) A 08/13/16 22:00 Urine Protein 100 mg/dL (Neg-Trace) H 08/13/16 22:00 Urine Blood Moderate (Negative) H 08/13/16 22:00 Ur Leukocyte Esterase Moderate (Negative) H 08/13/16 22:00 Urine Microscopic RBC 5-15 per hpf (0-3) H 08/13/16 22:00 Urine Microscopic WBC TNTC per hpf (0-3) H 08/13/16 22:00 Ur Eosinophil Smear 10 % (None Seen) H 08/15/16 12:00 Ur Squamous Epith Cells Many per lpf (None-Few) H 08/13/16 22:00 Urine Yeast Few per hpf (None Seen) H 08/13/16 22:00 Ur Culture Indicated? YES (NO) A 08/13/16 22:00 Vancomycin Trough 25.6 mcg/mL (10-20) H* 08/25/16 05:04 Acetaminophen < 1.0 mcg/mL (10-30) L 08/11/16 14:55 EBV Capsid Ag IgG Ab >750.0 U/mL (0.0-21.9) H 08/09/16 11:27 EBV Nuclear Ag Ab Titer 245.0 U/mL (0.0-21.9) H 08/09/16 11:27 General appearance: Present: mild distress - Respiratory Respiratory exam: Present: decreased breath sounds, CTAB - Cardiovascular Cardiovascular exam: Present: +S1, +S2 - GI/Abdominal GI/Abdominal exam: Present: normal bowel sounds, soft - Additional comments: Edwards with light yellow urine - Extremities Exam Additional comments: 3-4+ edema to all extremities - Neurological Exam Neurological exam: Present: alert, oriented X3, strengths equal and symetr throughout - Skin Skin exam: Present: dry, pallor, warm Additional comments: Lower extremities with dressings dry and intact Palliative Quality Palliative Quality: Screen for Code Status: NA (awaiting family meeting), Screen for Goals of Care: NA, Screen for Pain: Yes, If Pain Regimen Started, Initiate Bowel Regimen: NA, Screen for Nausea/Vomitting: NA Code Status: 08/29/16 12:38 DNR [Resuscitation Status: Active] [RES] Routine Comment: Resuscitation Status: [id number] 08/29/16 14:45 DNR [Resuscitation Status: Active] [RES] Routine Comment: Resuscitation Status: DNR-Comfort Care - Labs CBC & Chem 7: 08/29/16 04:53 08/29/16 04:53 Labs: Laboratory Results - last 24 hr 08/28/16 08/28/16 08/28/16 12:15 19:30 23:48 POC Glucose 79 85 79 08/29/16 11:45 POC Glucose 85 - ABG Interpretation ABG results: ABG ABG pH 7.33 pH Units (7.32-7.45) 08/29/16 06:18 ABG pCO2 38 mmHg (35-45) 08/29/16 06:18 ABG pO2 112 mmHg (85-104) H 08/29/16 06:18 ABG O2 Saturation 98 % (95-98) 08/29/16 06:18 PT/INR, D-dimer PT 14.0 Seconds (9.4-12.1) H 08/08/16 21:17 Consult Discharge Plan - Plan Instructions: Potassium Chloride (By mouth), Nystatin (On the skin), Amoxicillin/Clavulanate Potassium (By mouth), Cellulitis (DC), Sepsis (DC), Anemia (GEN), Pneumonia (DC) Additional Instructions: Mechanically altered diet with nectar thick liquids recommended. Recommend Modified Barium Swallow Study as outpatient. Referrals: NO,PCP [Primary Care Provider] - Prescriptions: Amoxicillin/Clavulanate [Augmentin] 875 mg PO BIDWM #14 tablet Nystatin POWDER [Nystop] 1 appl TP BID PRN #1 bottle PRN Reason: Rash Potassium Chloride 10 meq PO DAILY #30 [email or web address].prt
--- NOTE | 2016-08-30 10:23 | Event Note ---
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 Start: 08/31/2016 Hospice benefit. In: +90 days Palliative performance scale: approximate 40% History: agent has a history of Prader-Willi syndrome with mental retardation and congestive heart failure. He is also had 2 cardiac arrests. Has required ventilator and her support. He is also been on dialysis. Patient now wishes to have no further aggressive care area including stopping all pressors stopping all IV medications stopping dialysis. Patient is of course now DO NOT RESUSCITATE comfort care. Patient's goal is to go home and be kept comfortable with no further aggressive care as already noted. Therefore I find These findings support a life expectancy of 6 months or less. I attest that I have compose the above narrative based on my review of the patient's medical records, and or on my examination of the patient. Rupesh Gonzales M.D. Associate bio medical technician. [facility]
--- NOTE | 2016-08-30 10:30 | Internal Med Progress Note ---
Date of Encounter: 08/30/16 Time of Encounter: 09:05 - Assessment and plan (1) Counseling regarding advanced care planning and goals of care Current Visit: Yes Status: Acute Assessment and plan: Palliative care on board, consultation appreciated Comfort care measures only as per patients request, IV lines will be removed no lab draws supportive care only discharge pending arrangement of home hospice continue O2 supplementation (2) Dyspnea Current Visit: Yes Status: Acute Qualifiers: Dyspnea type: unspecified Qualified Code(s): R06.00 - Dyspnea, unspecified (3) Morbid obesity Current Visit: Yes Status: Acute Qualifiers: Obesity type: unspecified obesity type Qualified Code(s): E66.01 - Morbid ( severe) obesity due to excess calories (4) JOHN (obstructive sleep apnea) Current Visit: No Status: Chronic (5) Prader-Willi syndrome Current Visit: Yes Status: Chronic - Subjective Interval history: Patient is a 46y/o male with Prader willi syndrome who is admitted for sepsis. Pt was transferred from the ICU overnight. During this hospitalization, patient intubated due to acute respiratory failure and was treated for sepsis secondary to PNA. Detailed discussions were held with the family and decision to extubate the patient and convert to comfort care was made. Palliative care team is on board. Pt has been transitioned over to comfort care. He will be discharged to home in am with hospice care. Discharge pending arrangement of hospice care. Pt was seen and examined with family present at bedside. Pt is resting comfortably in bed and in no distress. Currently saturating well on nasal cannula. Patient is a very pleasant and child consistent with underlying disorder of Prader willi syndrome. He is oriented to self and family. - Constitutional Vitals: Temp Pulse Resp BP Pulse Ox 97.5 F L 71 18 83/54 100 08/29/16 23:39 08/30/16 07:33 08/30/16 07:33 08/30/16 07:33 08/30/16 07:33 General appearance: Present: A&O X 1, morbidly obese, no acute distress, answers questions appropriately - Head Head exam: Present: atraumatic, normocephalic - Eye Eye exam: Present: normal appearance, conjuntiva pink, sclera anicteric - Respiratory Respiratory exam: Present: decreased breath sounds. Absent: respiratory distress, wheezes - Cardiovascular Cardiovascular exam: Present: RRR, +S1, +S2 - GI/Abdominal GI/Abdominal exam: Present: normal bowel sounds, soft. Absent: tenderness - Extremities Exam Extremities exam: Present: pedal edema, warm, radial pulses palpable and symetrical Internal Medicine: Result - Labs CBC & Chem 7: 08/29/16 04:53 08/29/16 04:53 - ABG Interpretation ABG results: ABG ABG pH 7.33 pH Units (7.32-7.45) 08/29/16 06:18 ABG pCO2 38 mmHg (35-45) 08/29/16 06:18 ABG pO2 112 mmHg (85-104) H 08/29/16 06:18 ABG O2 Saturation 98 % (95-98) 08/29/16 06:18 PT/INR, D-dimer PT 14.0 Seconds (9.4-12.1) H 08/08/16 21:17 Consult Discharge Plan - Plan Instructions: Potassium Chloride (By mouth), Nystatin (On the skin), Amoxicillin/Clavulanate Potassium (By mouth), Cellulitis (DC), Sepsis (DC), Anemia (GEN), Pneumonia (DC) Additional Instructions: Mechanically altered diet with nectar thick liquids recommended. Recommend Modified Barium Swallow Study as outpatient. Referrals: NO,PCP [Primary Care Provider] - Prescriptions: Amoxicillin/Clavulanate [Augmentin] 875 mg PO BIDWM #14 tablet Nystatin POWDER [Nystop] 1 appl TP BID PRN #1 bottle PRN Reason: Rash Potassium Chloride 10 meq PO DAILY #30 [email or web address].prt
[2016-08-30] MEDS ORDERED: Ipratropium/Albuterol Neb 3 ML ONE (10:33)
[2016-08-30] MEDS: Ipratropium/Albuterol Neb 3 ML IH SCH ×3 (10:38→22:45)
[2016-08-30] MEDS: Budesonide/Formoterol 160/4.5 MDI IH SCH ×2 (10:38→22:45)
[2016-08-30] MEDS: Gentamicin Oint 15 GM TUBE TP SCH ×2 (10:50→21:59)
[2016-08-30] MEDS ORDERED: *HR* LORazepam 2 MG/ML VIAL IVP PRN (16:31)
[2016-08-30 19:24] VITALS: BP 81/58
[2016-08-31] MEDS: Ipratropium/Albuterol Neb 3 ML IH SCH ×2 (03:48→10:35)
--- NOTE | 2016-08-31 09:47 | Palliative Progress Note ---
Date of Encounter: 08/31/16 Time of Encounter: 09:40 - Assessment and plan (1) Dyspnea Current Visit: Yes Status: Acute Assessment and plan: Oxycodone utilized x1 last 24 hours. Continues with oxygen at 5LPM. Monitor Qualifiers: Dyspnea type: unspecified Qualified Code(s): R06.00 - Dyspnea, unspecified (2) Generalized pain Current Visit: Yes Status: Acute Assessment and plan: Continue Oxyocodone PRN (3) Anxiety Current Visit: Yes Status: Acute Assessment and plan: Continue Ativan. Utilized x1 last 24 hours. (4) Counseling regarding advanced care planning and goals of care Current Visit: Yes Status: Acute Assessment and plan: D/C home with [facility] today. D/W Dr. 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 He denies any pain or discomfort. Slept well last night after Ativan given. Sister at bedside. - Constitutional Vitals: Abnormal lab results WBC 15.6 K/mcL (4.3-11.1) H 08/29/16 04:53 RBC 3.25 M/mcL (4.19-5.50) L 08/29/16 04:53 Hgb 8.2 g/dL (12.9-16.9) L 08/29/16 04:53 Hct 27.0 % (37.5-50.1) L 08/29/16 04:53 MCH 25.2 pg (28.0-33.3) L 08/29/16 04:53 MCHC 30.4 g/dL (31.6-35.5) L 08/29/16 04:53 RDW 15.8 % (11.5-14.5) H 08/29/16 04:53 Neutrophils # 9.0 K/mcL (1.6-8.9) H 08/29/16 04:53 Monocytes # 1.9 K/mcL (0.0-1.3) H 08/29/16 04:53 Eosinophils # 1.7 K/mcL (0.0-0.6) H 08/29/16 04:53 Nucleated RBCs/100 WBC 0.2 /100 WBC (0) H 08/28/16 05:26 Clumped Platelets Few (Not Present) A 08/19/16 03:28 Large Platelets Present (Not Present) A 08/13/16 03:32 Polychromasia 2+ (Not Present) A 08/27/16 04:50 Hypochromasia Present (Not Present) A 08/27/16 04:50 Poikilocytosis 1+ (Not Present) A 08/13/16 03:32 Anisocytosis 1+ (Not Present) A 08/27/16 04:50 Microcytosis Present (Not Present) A 08/19/16 03:28 Ovalocytes 1+ (Not Present) A 08/13/16 03:32 PT 14.0 Seconds (9.4-12.1) H 08/08/16 21:17 ABG pO2 112 mmHg (85-104) H 08/29/16 06:18 ABG HCO3 20.0 mEQ/L (21-27) L 08/29/16 06:18 ABG Base Excess -5.5 mEq/L (-2.0 to 3.0) L 08/29/16 06:18 VBG pH 7.17 pH Units (7.32-7.42) L* 08/26/16 15:20 VBG pCO2 59 mmHg (41-51) H 08/26/16 15:20 Potassium 4.6 mEq/L (3.5-4.5) H 08/29/16 04:53 BUN 102 mg/dL (8-26) H 08/29/16 04:53 Creatinine 4.51 mg/dL (0.72-1.25) H 08/29/16 04:53 Est GFR ( Amer) 17 (> 60) L 08/29/16 04:53 Est GFR (Non-Af Amer) 14 (> 60) L 08/29/16 04:53 Calculated Osmolality 329 (280-300) H 08/29/16 04:53 Calcium 8.4 mg/dL (8.6-10.8) L 08/29/16 04:53 Ionized Calcium 1.08 mmol/L (1.15-1.35) L 08/28/16 05:11 Phosphorus 8.2 mg/dL (2.3-4.7) H 08/29/16 04:53 Serum Total Protein 5.1 g/dL (6.0-8.3) L 08/28/16 05:11 Albumin 2.1 g/dL (3.5-5.0) L 08/28/16 05:11 Albumin/Globulin Ratio 0.7 (1.1-2.2) L 08/28/16 05:11 Prealbumin 8.0 mg/dL (18.0-45.0) L 08/14/16 04:00 Ur Specimen Adequacy See below A 08/12/16 01:40 Urine Clarity Cloudy (Clear) A 08/13/16 22:00 Urine Protein 100 mg/dL (Neg-Trace) H 08/13/16 22:00 Urine Blood Moderate (Negative) H 08/13/16 22:00 Ur Leukocyte Esterase Moderate (Negative) H 08/13/16 22:00 Urine Microscopic RBC 5-15 per hpf (0-3) H 08/13/16 22:00 Urine Microscopic WBC TNTC per hpf (0-3) H 08/13/16 22:00 Ur Eosinophil Smear 10 % (None Seen) H 08/15/16 12:00 Ur Squamous Epith Cells Many per lpf (None-Few) H 08/13/16 22:00 Urine Yeast Few per hpf (None Seen) H 08/13/16 22:00 Ur Culture Indicated? YES (NO) A 08/13/16 22:00 Vancomycin Trough 25.6 mcg/mL (10-20) H* 08/25/16 05:04 Acetaminophen < 1.0 mcg/mL (10-30) L 08/11/16 14:55 EBV Capsid Ag IgG Ab >750.0 U/mL (0.0-21.9) H 08/09/16 11:27 EBV Nuclear Ag Ab Titer 245.0 U/mL (0.0-21.9) H 08/09/16 11:27 General appearance: Present: no acute distress - Respiratory Respiratory exam: Present: decreased breath sounds, CTAB Additional comments: Occasional rhonchi noted. - Cardiovascular Cardiovascular exam: Present: +S1, +S2 - GI/Abdominal GI/Abdominal exam: Present: hypoactive bowel sounds, soft - Extremities Exam Additional comments: 3-4+ generalized edema to all extremities - Neurological Exam Neurological exam: Present: alert, oriented X3 Additional comments: generalized weakness - Skin Skin exam: Present: dry, pallor, warm Additional comments: Upper chest with reddened areas from former adhesive Palliative Quality Palliative Quality: Screen for Code Status: NA (awaiting family meeting), Screen for Goals of Care: NA, Screen for Pain: Yes, If Pain Regimen Started, Initiate Bowel Regimen: NA, Screen for Nausea/Vomitting: NA Code Status: 08/29/16 12:38 DNR [Resuscitation Status: Active] [RES] Routine Comment: Resuscitation Status: [id number] 08/29/16 14:45 DNR [Resuscitation Status: Active] [RES] Routine Comment: Resuscitation Status: DNR-Comfort Care - Labs CBC & Chem 7: 08/29/16 04:53 08/29/16 04:53 - ABG Interpretation ABG results: ABG ABG pH 7.33 pH Units (7.32-7.45) 08/29/16 06:18 ABG pCO2 38 mmHg (35-45) 08/29/16 06:18 ABG pO2 112 mmHg (85-104) H 08/29/16 06:18 ABG O2 Saturation 98 % (95-98) 08/29/16 06:18 PT/INR, D-dimer PT 14.0 Seconds (9.4-12.1) H 08/08/16 21:17 Consult Discharge Plan - Plan Instructions: Potassium Chloride (By mouth), Nystatin (On the skin), Amoxicillin/Clavulanate Potassium (By mouth), Cellulitis (DC), Sepsis (DC), Acinetobacter baumannii Infection (GEN), Anemia (GEN), Pneumonia (DC) Additional Instructions: Mechanically altered diet with nectar thick liquids recommended. Recommend Modified Barium Swallow Study as outpatient. Referrals: NO,PCP [Primary Care Provider] - Prescriptions: Ipratropium/Albuterol Neb [Duoneb] 3 ml IH Q4HR PRN 4 Days PRN Reason: Shortness Of Breath/Wheezing Amoxicillin/Clavulanate [Augmentin] 875 mg PO BIDWM #14 tablet LORazepam Oral Conc [Ativan Oral Conc] 0.5 mg PO Q4H PRN #15 mls PRN Reason: anxiety/restlessness Nystatin POWDER [Nystop] 1 appl TP BID PRN #1 bottle PRN Reason: Rash OxyCODONE CONC 5 mg PO Q1H PRN #30 mls PRN Reason: dyspnea/pain Potassium Chloride 10 meq PO DAILY #30 [email or web address].prt Sennosides [Senokot] 8.6 mg PO BID PRN #8 tablet PRN Reason: Constipation
[2016-08-31] MEDS: Lactobacillus 1 EACH CAP.SPRINK PO SCH (10:17)
[2016-08-31] MEDS: Famotidine 20 MG TABLET PO SCH (10:17)
[2016-08-31] MEDS: Gentamicin Oint 15 GM TUBE TP SCH (10:19)
[2016-08-31] MEDS: Nystatin POWDER 30 GM BOTTLE TP SCH (10:19)
[2016-08-31] MEDS: DiphenhydraMINE CREAM 28.4 GM TUBE TP SCH (10:19)
--- NOTE | 2016-08-31 10:24 | Discharge Summary ---
Date of Encounter: 08/31/16 Time of Encounter: 09:50 - Discharge Diagnosis (1) Counseling regarding advanced care planning and goals of care Priority: Secondary Status: Acute (2) Dyspnea Priority: Primary Status: Acute Qualifiers: Dyspnea type: unspecified Qualified Code(s): R06.00 - Dyspnea, unspecified (3) Morbid obesity Priority: Secondary Status: Chronic Qualifiers: Obesity type: unspecified obesity type Qualified Code(s): E66.01 - Morbid ( severe) obesity due to excess calories (4) JOHN (obstructive sleep apnea) Priority: Secondary Status: Chronic (5) Prader-Willi syndrome Priority: Primary Status: Chronic (6) Community acquired pneumonia Priority: Primary Status: Acute (7) Acute hypoxemic respiratory failure Priority: Primary Status: Acute (8) Septic shock Priority: Primary Status: Resolved - Discharge Medications Prescriptions: Ipratropium/Albuterol Neb [Duoneb] 3 ml IH Q4HR PRN 4 Days PRN Reason: Shortness Of Breath/Wheezing Amoxicillin/Clavulanate [Augmentin] 875 mg PO BIDWM #14 tablet LORazepam Oral Conc [Ativan Oral Conc] 0.5 mg PO Q4H PRN #15 mls PRN Reason: anxiety/restlessness Nystatin POWDER [Nystop] 1 appl TP BID PRN #1 bottle PRN Reason: Rash OxyCODONE CONC 5 mg PO Q1H PRN #30 mls PRN Reason: dyspnea/pain Potassium Chloride 10 meq PO DAILY #30 tab.er.prt Sennosides [Senokot] 8.6 mg PO BID PRN #8 tablet PRN Reason: Constipation Home Medications: Multivitamin [Multi-Day Vitamins] 1 each PO DAILY 01/07/16 [History] Ascorbic Acid [Vitamin C] 500 mg PO DAILY #30 tablet 01/09/16 [Rx] Folic Acid 0.4 mg PO DAILY #30 tablet 01/09/16 [Rx] Ferrous Gluconate 324 mg PO BID #60 tablet 02/15/16 [Rx] Lactobacillus [Culturelle] 1 each PO BID cap.sprink 06/01/16 [Rx] Zinc Sulfate 220 mg PO DAILY capsule 06/01/16 [Rx] Acetaminophen [Acetaminophen ER] 650 mg PO Q6H PRN 06/14/16 [History] Docusate [Colace] 100 mg PO BID PRN 06/14/16 [History] Famotidine [Heartburn Prevention] 20 mg PO BID 06/14/16 [History] Albuterol Neb [Proventil Neb] 2.5 mg IH Q2H PRN 08/08/16 [History] Collagenase Oint [Santyl] 1 appl TP AD 08/08/16 [History] Furosemide [Lasix] 40 mg PO BID 08/08/16 [History] Gentamicin Oint [Garamycin] 1 appl TP AD 08/08/16 [History] Ipratropium/Albuterol Neb [Duoneb] 3 ml IH QID 08/08/16 [History] Oxygen 2 l NS AD 08/08/16 [History] Amoxicillin/Clavulanate [Augmentin] 875 mg PO BIDWM #14 tablet 08/22/16 [Rx] Nystatin POWDER [Nystop] 1 appl TP BID PRN #1 bottle 08/22/16 [Rx] Potassium Chloride 10 meq PO DAILY #30 tab.er.prt 08/22/16 [Rx] Ipratropium/Albuterol Neb [Duoneb] 3 ml IH Q4HR PRN 4 Days 08/30/16 [Rx] LORazepam Oral Conc [Ativan Oral Conc] 0.5 mg PO Q4H PRN #15 mls 08/30/16 [Rx] OxyCODONE CONC 5 mg PO Q1H PRN #30 mls 08/30/16 [Rx] Sennosides [Senokot] 8.6 mg PO BID PRN #8 tablet 08/31/16 [Rx] Allergies/Adverse Reactions: Allergies cephalexin [From Keflex] Allergy (Verified 08/08/16 12:30) See Comments Pt unsure of reaction. chlorpromazine [From Thorazine] Allergy (Verified 08/08/16 12:30) See Comments [place] Allergy (Verified 08/08/16 12:30) See Comments [place] Allergy (Uncoded 08/08/16 12:30) See Comments Date of admission: 08/08/16 16:47 Primary care physician: PCP NO Consults: 08/08/16 16:53 Consult to Wound Care [CONS] Routine Reason for Consult: bilateral lower ext wounds Call Completed: No 08/08/16 17:06 Consult to Infectious Diseases [CONS] Routine Consulting Provider: [facility] [place] Reason for Consult: ATB management Call Completed: Yes 08/08/16 17:51 Consult to Podiatry [CONS] Routine Consulting Provider: [facility] Reason for Consult: worsening lower ext wounds Call Completed: Yes 08/08/16 18:38 Consult to Automatic Embroidery Machine Tender [CONS] Routine Reason for SW Consult: came from [facility]. 08/10/16 15:21 Consult to Gastroenterology [CONS] Routine Consulting Provider: Gastroenterology [facility] Reason for Consult: transaminitis Call Completed: Yes 08/10/16 21:18 Consult to Pulmonology [CONS] Routine Consulting Provider: Pulm [facility] [place] Reason for Consult: Sepsis; multi-organ dysfunction; ICU management Call Completed: No 08/11/16 08:26 consult to pre sales network engineer [Consult to Nutrition] [CONS] Routine Comment: Consulting Provider: NUTRITION Reason for Dietary Consult: TF Start and Manage 08/11/16 08:28 Consult to Urology [CONS] Routine Consulting Provider: U[facility] [place] Reason for Consult: Prader-Willi, micropenis, velasquez placement Time Notified: 08:29 Call Completed: Yes 08/11/16 10:42 Consult to PICC team [Consult to Invasive Line Access Team] [CONS] Routine Reason for Consult: custodial antibiotics, limited access, only 1 working IV Line Type: PICC Call Completed: No 08/16/16 09:46 Consult to Nephrology [CONS] Stat Consulting Provider: [facility] Reason for Consult: worsening STEPHANIE, suspect AIN Time Notified: 09:46 Call Completed: Yes 08/18/16 07:15 Consult to Occupational Therapy [CONS] Routine Comment: Evaluate, develop and implement POC Reason for Consult: POC Consult to Physical Therapy [CONS] Routine Comment: Evaluate, develop and implement POC Reason for Consult: POC 08/18/16 08:31 Consult to Nutrition [CONS] Routine Comment: Consulting Provider: NUTRITION Reason for Dietary Consult: Diet Education 08/21/16 18:43 Consult to Speech Therapy [CONS] Routine Comment: Evaluate, develop and implement POC Reason for Consult: Possible aspiration Call Completed: No 08/23/16 10:46 Consult to Invasive Line Access Team [CONS] Routine Reason for Consult: unable to draw labs Line Type: EPIV 08/25/16 12:53 Consult to Nephrology [CONS] Stat Consulting Provider: [facility] [place] Reason for Consult: Family wishes to establish care with Dr. LEAHY, STEPHANIE and elevated K Time Notified: 12:54 Call Completed: Yes 08/25/16 13:18 Consult to Interventional Radiology [CONS] Routine Consulting Provider: Radiology Interventional [facility] Reason for Consult: hyperkalemia, STEPHANIE Call Completed: No 08/26/16 07:29 Consult to Pulmonology [CONS] Routine Consulting Provider: Pulm [facility] Reason for Consult: ICU management Call Completed: Yes 08/26/16 09:00 Consult to Dialysis [CONS] ONCE 08/27/16 14:30 Consult to Dialysis [CONS] ONCE 08/28/16 12:00 Consult to Palliative Care [CONS] Routine Comment: Consulting Provider: Palliative Care [facility] Reason for Consult: Prader Willi Syndrome, multiple admission this year, worsening STEPHANIE and has not tolerated HD, 08/27 4 minutes into HD he coded, ROSC and intubated , family wishes to take patient home and consideration for possible hospice and comfort , code status?? Call Completed: No Discharging clinician: Anna Camarena Anticipated date of discharge: 08/31/16 - Patient Status Disposition: Home Health Service Condition: Fair Functional capacity at discharge: wheelchair bound Overall status at discharge: patient is back to baseline - Ambulatory Orders Ambulatory Orders: XR modified bs w speech therap [XR] Time Frame: 1 Week, Facility: [facility], Location: Radiology - Discharge Instructions Instructions: Potassium Chloride (By mouth), Nystatin (On the skin), Amoxicillin/Clavulanate Potassium (By mouth), Cellulitis (DC), Sepsis (DC), Acinetobacter baumannii Infection (GEN), Anemia (GEN), Pneumonia (DC) Follow Up With: NO,PCP [Primary Care Provider] - Additional Instructions: Mechanically altered diet with nectar thick liquids recommended. Recommend Modified Barium Swallow Study as outpatient. continue care as per hospice care services - Diet and Activity Activity: as per physical therapy Diet: other (mechanically altered diet with nectar thick liquids) Hospital course: Mr. Junior is a 46 year old male with PMH of Prader-Willi syndrome, DM, chronic LE wounds who was admitted for sepsis secondary to infected LE wounds and STEPHANIE. Patient's hospital course was complicated by acute respiratory failure requiring intubation secondary pneumonia. He was cared for in the ICU. Given patient's underlying chronic illness, palliative care evaluation was done. As per family's wishes, decision to change patient to comfort care was made and transition to hospice care. Patient was extubated and placed on nasal cannula. Patient was transferred to [facility] there after. Palliative care has been closely involved and patient's home hospice is set up. Patient will be discharged to home with hospice care. Hospice care is to manage patient's care after discharge. Patient's family demonstrates understanding of his diagnosis and agree with the discharge care and plan. Patient's discharge home medications are reconcilled by the palliative care team. - Time Spent with Patient Total time spent providing and/or coordinating discharge services: Greater than 30 minutes - Constitutional Vitals: Temp Pulse Resp BP Pulse Ox 97.7 F 68 17 81/58 98 08/30/16 19:22 08/30/16 19:22 08/30/16 22:46 08/30/16 19:22 08/30/16 22:46 General appearance: Present: A&O X 1, morbidly obese, no acute distress, answers questions appropriately - Head Head exam: Present: atraumatic, normocephalic - Eye Eye exam: Present: normal appearance, conjuntiva pink, sclera anicteric - Respiratory Respiratory exam: Absent: respiratory distress, wheezes - Cardiovascular Cardiovascular exam: Present: RRR, +S1, +S2 - GI/Abdominal GI/Abdominal exam: Present: normal bowel sounds, soft. Absent: tenderness - Extremities Exam Extremities exam: Present: pedal edema, warm, radial pulses palpable and symetrical Additional comments: dressing intact in bilateral lower extremities - Neurological Exam Neurological exam: Present: alert - Psychiatric Psychiatric exam: Present: normal mood
--- NOTE | 2016-08-31 10:27 | Physician Discharge Referral ---
Home Health/Hosp Referral Info Transfer to: Hospice Provider in Charge Post Discharge: PCP - Diagnosis (1) Counseling regarding advanced care planning and goals of care Priority: Secondary Status: Acute (2) Morbid obesity Priority: Secondary Status: Chronic (3) Dyspnea Priority: Primary Status: Acute (4) JOHN (obstructive sleep apnea) Priority: Secondary Status: Chronic (5) Prader-Willi syndrome Priority: Primary Status: Chronic (6) Community acquired pneumonia Priority: Primary Status: Acute (7) Acute hypoxemic respiratory failure Priority: Primary Status: Acute (8) Septic shock Priority: Primary Status: Resolved - Respiratory Orders Smoking Cessation: Smoking cessation has been advised. For more information, call the [place] Tobacco Quit Line at 9-454-VPFF-NOW. - Services Needed Following services are medically necessary services: Nursing, Home Health Aide, Physical Therapy, Occupational Therapy, Speech Therapy - Transfer Medications Prescriptions: Ipratropium/Albuterol Neb [Duoneb] 3 ml IH Q4HR PRN 4 Days PRN Reason: Shortness Of Breath/Wheezing Amoxicillin/Clavulanate [Augmentin] 875 mg PO BIDWM #14 tablet LORazepam Oral Conc [Ativan Oral Conc] 0.5 mg PO Q4H PRN #15 mls PRN Reason: anxiety/restlessness Nystatin POWDER [Nystop] 1 appl TP BID PRN #1 bottle PRN Reason: Rash OxyCODONE CONC 5 mg PO Q1H PRN #30 mls PRN Reason: dyspnea/pain Potassium Chloride 10 meq PO DAILY #30 tab.er.prt Sennosides [Senokot] 8.6 mg PO BID PRN #8 tablet PRN Reason: Constipation Home Medications: Multivitamin [Multi-Day Vitamins] 1 each PO DAILY 01/07/16 [History] Ascorbic Acid [Vitamin C] 500 mg PO DAILY #30 tablet 01/09/16 [Rx] Folic Acid 0.4 mg PO DAILY #30 tablet 01/09/16 [Rx] Ferrous Gluconate 324 mg PO BID #60 tablet 02/15/16 [Rx] Lactobacillus [Culturelle] 1 each PO BID cap.sprink 06/01/16 [Rx] Zinc Sulfate 220 mg PO DAILY capsule 06/01/16 [Rx] Acetaminophen [Acetaminophen ER] 650 mg PO Q6H PRN 06/14/16 [History] Docusate [Colace] 100 mg PO BID PRN 06/14/16 [History] Famotidine [Heartburn Prevention] 20 mg PO BID 06/14/16 [History] Albuterol Neb [Proventil Neb] 2.5 mg IH Q2H PRN 08/08/16 [History] Collagenase Oint [Santyl] 1 appl TP AD 08/08/16 [History] Furosemide [Lasix] 40 mg PO BID 08/08/16 [History] Gentamicin Oint [Garamycin] 1 appl TP AD 08/08/16 [History] Ipratropium/Albuterol Neb [Duoneb] 3 ml IH QID 08/08/16 [History] Oxygen 2 l NS AD 08/08/16 [History] Amoxicillin/Clavulanate [Augmentin] 875 mg PO BIDWM #14 tablet 08/22/16 [Rx] Nystatin POWDER [Nystop] 1 appl TP BID PRN #1 bottle 08/22/16 [Rx] Potassium Chloride 10 meq PO DAILY #30 tab.er.prt 08/22/16 [Rx] Ipratropium/Albuterol Neb [Duoneb] 3 ml IH Q4HR PRN 4 Days 08/30/16 [Rx] LORazepam Oral Conc [Ativan Oral Conc] 0.5 mg PO Q4H PRN #15 mls 08/30/16 [Rx] OxyCODONE CONC 5 mg PO Q1H PRN #30 mls 08/30/16 [Rx] Sennosides [Senokot] 8.6 mg PO BID PRN #8 tablet 08/31/16 [Rx] Allergies/Adverse Reactions: Allergies cephalexin [From Keflex] Allergy (Verified 08/08/16 12:30) See Comments Pt unsure of reaction. chlorpromazine [From Thorazine] Allergy (Verified 08/08/16 12:30) See Comments [place] Allergy (Verified 08/08/16 12:30) See Comments Beans Allergy (Uncoded 08/08/16 12:30) See Comments Certification: Further, I certify that my clinical findings support that this patient is homebound (i.e. absences from home require considerable and taxing effort and are for medical reasons or nondenominational services or infrequently or short duration when for other reasons) because: Homebound Reason: Patient requires assistance of a person or device to safely leave home Attestation: My signature below is to certify that this patient is under my care and that I, or nurse practitioner, or a physician's acute care certified nursing assistant working with me, has a face-to -face encounter with this patient.
[2016-08-31] MEDS: Budesonide/Formoterol 160/4.5 MDI IH SCH (10:38)
== END 2016-08-31 12:03 | disposition home health service (06) | DRG 870 ==
LOC: 3ANU 11:43 → EMEROO 11:43 → 3ANU 16:12 → SUATTDRO 16:47 → 3NENU 08-09 02:39 → ICNU 08-10 21:19 → 2NENU 08-18 20:15 → 2NNU 08-24 09:54 → ICNU 08-24 10:05 → 2ANU 08-29 19:35
PROVIDERS: ADMIT Internal Medicine; ATTEND Internal Medicine